=== PATIENT | female | born 1945 | race Caucasian/White ===

== ENCOUNTER 2018-05-11 19:28 | Inpatient (IN) | payer MEDICARE, OTHER ==
[~2018-05-11] VITALS: Ht 167.6 cm; Wt 59.0 kg
[~2018-05-11 19:28] MED LIST: UNOBMED
[2018-05-11 19:48] VITALS: BP 113/51
[2018-05-11] MEDS ORDERED: HEPARIN SO5000 UNIT2 SUBQ ×2 (20:01→20:09)
[2018-05-11] MEDS ORDERED: TYLENOL EXTRA500 MG GT (20:01)
[2018-05-11] MEDS ORDERED: ATIVAN1 MG GT ×2 (20:01→20:09)
[2018-05-11] MEDS ORDERED: NOVOLOG100 UNIT/3 SUBQ ×2 (20:01→20:09)
[2018-05-11] MEDS ORDERED: AMLODIPINE BESY10 MG GT ×2 (20:01→20:09)
[2018-05-11] MEDS ORDERED: MINOXIDIL2.5 MG GT ×2 (20:01→20:09)
[2018-05-11] MEDS ORDERED: SYNTHROID150 MCG GT (20:01)
[2018-05-11 20:09] LABS: HEMATOCRIT 36.9 % (37.0-47.0); HEMOGLOBIN 12.2 G/DL (12.0-16.0); MEAN CORPUSCULAR VOLUME 100 FL (80-99); PLATELET COUNT 109 K/UL (150-450); RED CELL DISTRIBUTION WIDTH 12.2 % (11.6-14.8); WHITE BLOOD COUNT 9.1 K/UL (4.8-10.8)
[2018-05-11] MEDS ORDERED: LEVOTHYROXINE125 MCG GT (20:09)
[2018-05-11] MEDS ORDERED: TYLENOL EXTRA500 MG ORAL (20:09)
[2018-05-11 20:19] LABS: ANION GAP 12 mmol/L (5-15); BLOOD UREA NITROGEN 58 mg/dL (7-18); CALCIUM 9.3 MG/DL (8.5-10.1); CARBON DIOXIDE 26 MMOL/L (21-32); CHLORIDE 97 MMOL/L (98-107); CREATININE 3.8 MG/DL (0.55-1.30); SODIUM 135 MMOL/L (136-145)
[2018-05-11 20:29] LABS: ALANINE AMINOTRANSFERASE 33 U/L (12-78); ALBUMIN 3.3 G/DL (3.4-5.0); ALBUMIN/GLOBULIN RATIO 0.8 (1.0-2.7); ALKALINE PHOSPHATASE 124 U/L (46-116); ASPARTATE AMINO TRANSFERASE 36 U/L (15-37); BILIRUBIN,TOTAL 0.8 MG/DL (0.2-1.0)
[2018-05-11 20:40] VITALS: BP 129/61
[2018-05-11] MEDS ORDERED: Piperacillin/Tazobactam 4.5 GM in NS 110 ML IVPB ONE (21:15)
[2018-05-11] MEDS ORDERED: Vancomycin 1 GM in D5W 275 ML IVPB ONE (21:15)
[2018-05-11 21:30] VITALS: BP 145/73
[2018-05-11] MEDS ORDERED: Albuterol/Ipratropium 3ml neb HHN PRN (21:30)
--- NOTE | 2018-05-11 21:45 | Emergency Room Report ---
History of Present Illness General Chief Complaint: Dyspnea/Respdistress Present Illness HPI Ms. Jessica is a 72-year-old female with history of end-stage renal disease on hemodialysis Saturday. She also has a history of some schizophrenia dysphagia hypothyroidism and type 2 diabetes. She presents with severe respiratory distress hypoxia. Pulse ox 70% on room air according to EMS first responders. She required high flow nonrebreather improving oxygenation.,, Last dialysis session occurred on Saturday 2 days prior. She does have a cough. No known fever. Patient is FULL CODE statue. Due to respiratory distress, history from patient is limited. History obtained from [facility] nursing documentation Allergies: Coded Allergies: No Known Allergies (Unverified , 05/11/18) Patient History Limited by: medical condition Past Medical History: see triage record, old chart reviewed - long term documentation Past Surgical History: unable to obtain Social History Narrative patient at [facility] Nursing Documentation-PMH Hx Hypertension: Yes Hx Diabetes: Yes Hx Gastrointestinal Problems: Yes - ESRD,M-W-F History Of Psychiatric Problem: Yes - SCHIZO Review of Systems All Other Systems: limited - severe respiratory distress Physical Exam Vital Signs Date Time Temp Pulse Resp B/P (MAP) Pulse Ox O2 Delivery O2 Flow Rate FiO2 05/11/18 19:23 98.1 99 30 126/62 97 Non-Rebreather 15.0 98.1 Sp02 EP Interpretation: abnormal - 72% on room air according to EMS General Appearance: severe distress - respiratory distress on nonrebreather Eyes: bilateral eye normal inspection, bilateral eye PERRL ENT: normal pharynx, moist mucus membranes Neck: normal inspection, full range of motion Respiratory: respiratory distress, decreased breath sounds, crackles, rales, rhonchi Cardiovascular #1: regular rate, rhythm, no edema, systolic murmur Gastrointestinal: non tender, soft, other - gastrostomy tube present Musculoskeletal: normal inspection Neurologic: responsive, motor strength/tone normal Psychiatric: other - flat affect cooperative Medical Decision Making Diagnostic Impression: Primary Impression: Acute respiratory failure with hypoxia ER Course Ms. Jessica presents with acute respiratory failure with severe hypoxia. Differential diagnosis includes pulmonary edema due to renal or heart disease vs Healthcare associated pneumonia. Possible flash pulmonary edema due to ACS. Lung exam and chest x-ray largely excludes pulmonary embolism. Patient is now tolerating Venti mask. Symptoms have improved. She is now able to speak with mild effort. Broad-spectrum antibiotics initiated for possibilty of HCAP. Dr. Hudson primary physican and nephrologsit will admit and arrange hemodialysis. 35 minutes of critical care time excluding procedures were used in a care patient. She required multiple evaluations. I reviewed electronic medical record. I spoke with EMS providers. Coordinated care with nursing staff. Lab Results Impression normal white count, equivocal nonspecific troponin elevation in patient with ESRD Chest X-Ray Diagnostic Results Chest X-Ray Diagnostic Results : Chest X-Ray Ordered: Yes # of Views/Limited/Complete: 1 View EP Interpretation: Yes Impression: Other - alveolar edema with bilateral effusion RLL infiltate LLL atelectasis vs effusion Electronically Signed by: This image has been electronically signed by Dr. Liss Quach Last Vital Signs Date Time Temp Pulse Resp B/P (MAP) Pulse Ox O2 Delivery O2 Flow Rate FiO2 05/11/18 21:30 92 23 145/73 97 Venturi Mask 10.0 05/11/18 19:48 98.1 98.1 Disposition: ADMITTED INPATIENT Condition: Serious LISS QUACH May 11, 2018 21:45
[2018-05-11 22:45] VITALS: BP 198/91
[2018-05-12] VITALS: BP 190/90
[2018-05-12] MEDS ORDERED: PRO-STAT LIQUID30 ML ORAL (00:41)
[2018-05-12] MEDS ORDERED: RENA-VITE TABL0.8 M1 GT (00:41)
[2018-05-12 04:00] VITALS: BP 147/78
[2018-05-12] MEDS ORDERED: Heparin 5000 units/ml inj SUBQ SCH (09:00)
[2018-05-12] MEDS ORDERED: Docusate 100mg cap ORAL SCH (09:00)
--- NOTE | 2018-05-12 09:16 | Diagnostic Imaging Report ---
Indication: Shortness of breath Technique: One view of the chest Comparison: 03/24/2012 Findings: Interim development of pulmonary interstitial and airspace edema. There is pleural fluid bilaterally, left greater than right. The heart is enlarged. Findings are new since prior study Impression: Evidence of congestive heart failure, with bilateral interstitial and airspace edema, bilateral pleural effusions, cardiomegaly
[2018-05-12] MEDS ORDERED: Heparin Sod 1000 units/ml 10ml IV PRN (21:30)
--- NOTE | 2018-05-13 09:54 | Discharge Summary ---
Discharge Summary Discharge Summary _ DATE OF ADMISSION: 05/11/2018 DATE OF DISCHARGE: 05/12/2018 REASON FOR ADMISSION: 72 years old female , resident of snf facility , with past medical history significant for end-stage renal disease, on hemodialysis, diabetes mellitus type 2, hypothyroidism, schizophrenia, dysphagia, resented to emergency department with severe respiratory distress. According to paramedics , pulse oximetry was 70% on the room air. Patient was placed on 100% nonrebreathing mask . Vital signs revealed hypoxemia, tachycardia , and tachypnea. No fever. Last hemodialysis done 2 days ago. ABG on 100% nonrebreathing mask was stable. Laboratory workup revealed no leukocytosis ,stable hemoglobin and hematocrit. Lactic acid 1.8. BUN 58 creatinine 3.8 , consistent with known history of end-stage renal disease. Troponin slightly elevated -0.061. EKG revealed sinus tachycardia with left axis deviation. Right bundle bunch block. No acute ischemic changes. Chest x-ray revealed evidence of congestive heart failure with bilateral interstitial and airspace edema, bilateral pleural effusion, cardiomegaly. Patient admitted with diagnosis of on acute respiratory failure with hypoxia, fluid overload, ESRD. HOSPITAL COURSE: Patient admitted to [facility]. Hemodialysis was ordered stat to be done that evening. Patient initially was on 100% nonrebreathing mask then weaned down to 45% Venturi mask . ABG on 45% Ventimask revealed O2 sat of 90%. Pulmonary toilet provided with bronchodilators. Patient started on empiric antibiotics. Blood culture results (available now )negative. DVT and GI prophylaxis provided. Bowel regimen instituted. No call from hemodialysis received despite multiple attempts. Per attending physician, patient was transferred to [facility] to stepdown unit for urgent hemodialysis that evening ( by [employer]). FINAL DIAGNOSES: Acute respiratory failure with hypoxia Fluid overload Congestive heart failure Bilateral pleural effusion End-stage renal disease , on hemodialysis DISCHARGE MEDICATIONS: See Medication Reconciliation list. DISCHARGE INSTRUCTIONS: Patient was transferred to [facility] [place] for urgent hemodialysis and further management. I have been assigned to dictate discharge summary for this account. I was not involved in the patient's management. Inocencia Lowry NP May 13, 2018 09:54
== END 2018-05-12 05:30 | disposition short-term general hospital (02) | DRG 189 ==
LOC: EDUNIT# 19:28 → EDBD 19:28 → EMR 20:10 → EDBEDREQ 21:26 → 2W 21:52
DX: J96.01 Acute respiratory failure with hypoxia (principal); N18.6 End stage renal disease; I13.2 Hypertensive heart and chronic kidney disease with heart failure and with stage 5 chronic kidney disease, or end stage renal disease; I50.9 Heart failure, unspecified; E11.22 Type 2 diabetes mellitus with diabetic chronic kidney disease; E03.9 Hypothyroidism, unspecified; F20.9 Schizophrenia, unspecified; R13.10 Dysphagia, unspecified; I45.10 Unspecified right bundle-branch block; Z99.2 Dependence on renal dialysis
CPT/HCPCS: 36415; 36600; 71045; 80053; 82803; 82962; 83605; 83880; 84484; 85007; 85025; 87040; 87081; 93005

== ENCOUNTER 2018-06-30 10:20 | Inpatient (IN) | payer MEDICARE, OTHER ==
[~2018-06-30] VITALS: Ht 162.6 cm; Wt 69.2 kg
[~2018-06-30 10:20] MED LIST changes: +AMLODIPINE BESY10 MG GT; +ATIVAN1 MG GT; +HEPARIN SO5000 UNIT2 SUBQ; +LEVOTHYROXINE125 MCG GT; +MINOXIDIL2.5 MG GT; +NOVOLOG100 UNIT/3 SUBQ; +PRO-STAT LIQUID30 ML ORAL; +RENA-VITE TABL0.8 M1 GT; +SYNTHROID150 MCG GT; +TYLENOL EXTRA500 MG GT; +TYLENOL EXTRA500 MG ORAL
[2018-06-30] MEDS ORDERED: Isovue-300 100ml vial INJ PRN (11:00)
[2018-06-30 11:02] VITALS: BP 164/70
[2018-06-30 11:38] LABS: HEMATOCRIT 38.8 % (37.0-47.0); HEMOGLOBIN 13.1 G/DL (12.0-16.0); MEAN CORPUSCULAR VOLUME 97 FL (80-99); PLATELET COUNT 118 K/UL (150-450); RED BLOOD COUNT 3.99 M/UL (4.20-5.40); RED CELL DISTRIBUTION WIDTH 14.1 % (11.6-14.8); WHITE BLOOD COUNT 7.6 K/UL (4.8-10.8)
[2018-06-30 11:52] LABS: INR 1.1 (0.9-1.1)
[2018-06-30 12:15] LABS: APPEARANCE,URINE CLOUDY; BILIRUBIN, URINE NEGATIVE (NEGATIVE); GLUCOSE, URINE (UA) NEGATIVE (NEGATIVE); KETONES,URINE NEGATIVE (NEGATIVE); LEUKOCYTE ESTERASE ,URINE 3+ (NEGATIVE); NITRITE,URINE NEGATIVE (NEGATIVE); PH,URINE 7 (4.5-8.0); PROTEIN,URINE 3+ (NEGATIVE); UROBILINOGEN,URINE NORMAL MG/DL (0.0-1.0)
[2018-06-30] MEDS ORDERED: Acetaminophen 650 MG SUPP RECTAL PRN (12:15)
[2018-06-30] MEDS ORDERED: Albuterol/Ipratropium 3ml neb HHN PRN (12:15)
[2018-06-30 12:30] LABS: COLOR,URINE YELLOW
[2018-06-30 12:39] LABS: ANION GAP 10 mmol/L (5-15); BLOOD UREA NITROGEN 103 mg/dL (7-18); CALCIUM 8.7 MG/DL (8.5-10.1); CARBON DIOXIDE 22 MMOL/L (21-32); CHLORIDE 98 MMOL/L (98-107); CREATININE 3.3 MG/DL (0.55-1.30); POTASSIUM 4.6 MMOL/L (3.5-5.1); SODIUM 130 MMOL/L (136-145)
[2018-06-30 12:45] LABS: ALANINE AMINOTRANSFERASE 29 U/L (12-78); ALBUMIN 2.7 G/DL (3.4-5.0); ALBUMIN/GLOBULIN RATIO 0.7 (1.0-2.7); ALKALINE PHOSPHATASE 202 U/L (46-116); ASPARTATE AMINO TRANSFERASE 19 U/L (15-37); BILIRUBIN,TOTAL 0.6 MG/DL (0.2-1.0)
[2018-06-30 12:49] VITALS: BP 150/58
--- NOTE | 2018-06-30 13:27 | Emergency Room Report ---
History of Present Illness General Chief Complaint: General Complaint Source: Patient, Medical Record Present Illness HPI This patient presents from a long-term facility. There is concerned that she was vomiting contents coming from her stomach and G tube. Also the nursing staff noted that she was sounding congested. There is concerned maybe the patient aspirated. The patient herself has no specific complaints. 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 Review of Systems All Other Systems: negative except mentioned in HPI Physical Exam Vital Signs Date Time Temp Pulse Resp B/P (MAP) Pulse Ox O2 Delivery O2 Flow Rate FiO2 06/30/18 10:21 97.9 80 18 164/70 97 Room Air 97.9 Sp02 EP Interpretation: reviewed, normal General Appearance: no apparent distress, alert, GCS 15, non-toxic Head: normocephalic, atraumatic Eyes: bilateral eye normal inspection, bilateral eye PERRL ENT: hearing grossly normal, normal pharynx, no angioedema, normal voice Neck: full range of motion, supple/symm/no masses Respiratory: chest non-tender, lungs clear, normal breath sounds, no respiratory distress, no retraction, no accessory muscle use, speaking full sentences Cardiovascular #1: regular rate, rhythm, no edema Gastrointestinal: normal bowel sounds, non tender, soft, non-distended, no guarding, no rebound, other - G-tube in place. Dark colored return from G-tube site. Rectal: deferred Musculoskeletal: back normal, normal range of motion, non-tender Neurologic: alert, oriented x3, responsive, motor strength/tone normal, sensory intact, speech normal Psychiatric: mood/affect normal, no suicidal/homicidal ideation Skin: normal color, no rash, warm/dry, well hydrated Medical Decision Making Diagnostic Impression: Primary Impression: Hematemesis Additional Impressions: Aspiration pneumonia UTI (urinary tract infection) ER Course I'm concerned for an upper GI bleed in this patient. Also, she has an aspiration pneumonia and is found to have a UTI. Overall, she was stable in the emergency department. She has findings on CT abd/pelvis concerning for malignancy. She is admitted for further evaluation and treatment as an inpatient. Laboratory Tests Test 06/30/18 11:20 06/30/18 12:01 06/30/18 12:20 White Blood Count 7.6 K/UL (4.8-10.8) Red Blood Count 3.99 M/UL (4.20-5.40) L Hemoglobin 13.1 G/DL (12.0-16.0) Hematocrit 38.8 % (37.0-47.0) Mean Corpuscular Volume 97 FL (80-99) Mean Corpuscular Hemoglobin 32.8 PG (27.0-31.0) H Mean Corpuscular Hemoglobin Concent 33.8 G/DL (32.0-36.0) Red Cell Distribution Width 14.1 % (11.6-14.8) Platelet Count 118 K/UL (150-450) L Mean Platelet Volume 6.1 FL (6.5-10.1) L Neutrophils (%) (Auto) % (45.0-75.0) Lymphocytes (%) (Auto) % (20.0-45.0) Monocytes (%) (Auto) % (1.0-10.0) Eosinophils (%) (Auto) % (0.0-3.0) Basophils (%) (Auto) % (0.0-2.0) Differential Total Cells Counted 100 Neutrophils % (Manual) 94 % (45-75) H Lymphocytes % (Manual) 3 % (20-45) L Monocytes % (Manual) 3 % (1-10) Eosinophils % (Manual) 0 % (0-3) Basophils % (Manual) 0 % (0-2) Band Neutrophils 0 % (0-8) Platelet Estimate Decreased L Platelet Morphology Normal Hypochromasia 1+ Anisocytosis 1+ Prothrombin Time 11.9 SEC (9.30-11.50) H Prothrombin Time INR 1.1 (0.9-1.1) PTT 32 SEC (23-33) Urine Color Yellow Urine Appearance Cloudy Urine pH 7 (4.5-8.0) Urine Specific Harbinger 1.005 (1.005-1.035) Urine Protein 3+ (NEGATIVE) H Urine Glucose (UA) Negative (NEGATIVE) Urine Ketones Negative (NEGATIVE) Urine Blood 5+ (NEGATIVE) H Urine Nitrite Negative (NEGATIVE) Urine Bilirubin Negative (NEGATIVE) Urine Urobilinogen Normal MG/DL (0.0-1.0) Urine Leukocyte Esterase 3+ (NEGATIVE) H Urine RBC 10-15 /HPF (0 - 2) H Urine WBC Tntc /HPF (0 - 2) H Urine Squamous Epithelial Cells Few /LPF (NONE/OCC) Urine Bacteria Few /HPF (NONE) Sodium Level 130 MMOL/L (136-145) L Potassium Level 4.6 MMOL/L (3.5-5.1) Chloride Level 98 MMOL/L (98-107) Carbon Dioxide Level 22 MMOL/L (21-32) Anion Gap 10 mmol/L (5-15) Blood Urea Nitrogen 103 mg/dL (7-18) H Creatinine 3.3 MG/DL (0.55-1.30) H Estimate Glomerular Filtration Rate mL/min (>60) Glucose Level 195 MG/DL (74-106) H Calcium Level 8.7 MG/DL (8.5-10.1) Total Bilirubin 0.6 MG/DL (0.2-1.0) Aspartate Amino Transferase (AST) 19 U/L (15-37) Alanine Aminotransferase (ALT) 29 U/L (12-78) Alkaline Phosphatase 202 U/L (46-116) H Total Protein 6.4 G/DL (6.4-8.2) Albumin 2.7 G/DL (3.4-5.0) L Globulin 3.7 g/dL Albumin/Globulin Ratio 0.7 (1.0-2.7) L Lipase 215 U/L (73-393) EKG Diagnostic Results Rate: normal ST Segments: no acute changes Rhythm Strip Diag. Results EP Interpretation: yes Rate: 80's Rhythm: NSR, no PVC's, no ectopy Chest X-Ray Diagnostic Results Chest X-Ray Diagnostic Results : Chest X-Ray Ordered: Yes # of Views/Limited/Complete: 1 View Indication: Other Interpretation: other - R. opacity Impression: Other - See above Electronically Signed by: Malgorzata CT/MRI/US Diagnostic Results CT/MRI/US Diagnostic Results : Imaging Test Ordered: CT abd/pelvis Impression 2.5 cm right lower pole renal mass, very concerning for renal malignancy. Evidence of rectal fecal impaction, rectum distended to 9 cm The above findings were discussed by phone with Dr. Max at the time of interpretation Equivocally mildly thick-walled proximal small bowel loops, if real could indicate enteritis changes. Correlate with clinical findings Bilateral renal atrophy. Correlate with any clinical history of chronic renal disease Bilateral left greater than right renal low-attenuation. Significance uncertain, could indicate infection or hypoperfusion, the latter possibly related to chronic renal insufficiency. Correlate with clinical findings Anasarca. There is generalized edema of the subcutaneous fat, abdominal fat, mediastinal fat, as well as small bilateral pleural effusions Cardiomegaly Subcentimeter low-attenuation liver lesions, too small to characterize, most likely benign cysts or bile hamartomas Cholelithiasis Borderline splenomegaly Hiatal hernia Gastrostomy appears well-positioned Other findings as noted, including degenerative changes of both hips, dependent pulmonary atelectatic changes Last Vital Signs Date Time Temp Pulse Resp B/P (MAP) Pulse Ox O2 Delivery O2 Flow Rate FiO2 06/30/18 12:49 75 18 150/58 98 Room Air 06/30/18 11:02 97.9 97.9 Disposition: ADMITTED INPATIENT Condition: Serious Referrals: Raul Cannon MD (PCP) Halle Brewer DO Jun 30, 2018 13:27
--- NOTE | 2018-06-30 14:58 | Diagnostic Imaging Report ---
Clinical Indication: Abdominal pain, vomiting Technique: No oral contrast utilized, per referring physician request IV administration nonionic contrast. Venous phase spiral acquisition obtained through the abdomen and pelvis. Multiplanar reconstructions were generated. Total dose length product 622.99 mGycm. CTDIvol(s) 11.56 mGy. Dose reduction achieved using automated exposure control Comparison: none Findings: Lack of enteric contrast limits assessment of the GI tract. There is a moderate-sized sliding-type hiatal hernia, incompletely included. There is a gastrostomy tube in good position. There is equivocal mild wall thickening of proximal jejunal loops. These are nondistended. There is distention of the rectum by feces, rectal diameter measuring up to 9 cm. There is only minimal if any rectal wall thickening. No evidence of diverticulosis or diverticulitis. The appendix is not definitely demonstrated, but no findings to suggest acute appendicitis are evident. The liver demonstrates multiple subcentimeter low-attenuation lesions which are too small to characterize. The gallbladder contains small gallstones. It is mildly distended. There is no pericholecystic edema. No biliary ductal dilatation. The pancreas is unremarkable. The spleen is borderline enlarged, measuring 14 cm long axis dimension. The adrenals are unremarkable. The kidneys are atrophic. There is a 2.5 cm solid mass enhancing coming off of the lower pole of the right kidney. Both kidneys, particularly the left, are diffusely somewhat hypoattenuating. The left kidney demonstrates a prominent extrarenal pelvis which is dilated. However, no philomena calyceal hydronephrosis is demonstrated. Extensive renal calcifications are probably arterial. There are prominent but not frankly enlarged retroperitoneal lymph nodes demonstrated. Prominent pelvic nodes are demonstrated bilaterally, again none reaching size criteria for adenopathy, largest in the right external iliac region measuring 14 mm long axis dimension. The uterus and adnexal structures are unremarkable. The subcutaneous fat and abdominal fat are diffusely edematous, as is the mediastinal fat. There are trace bilateral pleural effusions. There are dependent atelectatic changes at both lung bases. The heart is markedly enlarged. The bones are unremarkable except for degenerative changes of both hips. Impression: 2.5 cm right lower pole renal mass, very concerning for renal malignancy. Evidence of rectal fecal impaction, rectum distended to 9 cm The above findings were discussed by phone with Dr. Max at the time of interpretation Equivocally mildly thick-walled proximal small bowel loops, if real could indicate enteritis changes. Correlate with clinical findings Bilateral renal atrophy. Correlate with any clinical history of chronic renal disease Bilateral left greater than right renal low-attenuation. Significance uncertain, could indicate infection or hypoperfusion, the latter possibly related to chronic renal insufficiency. Correlate with clinical findings Anasarca. There is generalized edema of the subcutaneous fat, abdominal fat, mediastinal fat, as well as small bilateral pleural effusions Cardiomegaly Subcentimeter low-attenuation liver lesions, too small to characterize, most likely benign cysts or bile hamartomas Cholelithiasis Borderline splenomegaly Hiatal hernia Gastrostomy appears well-positioned Other findings as noted, including degenerative changes of both hips, dependent pulmonary atelectatic changes The CT scanner at [facility] is accredited by the [employer] and the scans are performed using protocols designed to limit radiation exposure to as low as reasonably achievable to attain images of sufficient resolution adequate for diagnostic evaluation.
[2018-06-30 16:00] VITALS: BP 144/69
--- NOTE | 2018-06-30 16:03 | GI Initial Consult Note ---
History of Present Illness General Date patient seen: Jun 30, 2018 Time patient seen: 15:56 Reason for Hospitalization: General Complaint Referring physician: YSABEL READ Reason for Consultation: VOMITING Present Illness HPI This patient presents from a halfway facility. There is concerned that she was vomiting contents coming from her stomach and G tube. Also the nursing staff noted that she was sounding congested. There is concerned maybe the patient aspirated. The patient herself has no specific complaints. GI consulted for vomiting resulting in possible aspiration. ROS limited, pt seen NAD with no active s/sx of N/V/D. Gtube dependent. Labs reviewed; no anemia, no leukocytosis, elevated alkaline phosphatase. CT AP reviewed patient showing severe fecal impaction. Home Meds Reported Medications Amino Acids/Protein Hydrolys (PRO-STAT LIQUID) 30 Ml Liquid.pkt, 30 ML ORAL TID , ML 05/12/18 Folic Acid/Vitamin B Comp W-C (BARBARA-ALONSO TABLET) 0.8 Mg Tablet, 0.8 MG GT DAILY , TAB 05/12/18 Minoxidil* (LONITEN*) 2.5 Mg Tablet, 2.5 MG GT BID, TAB 05/11/18 Levothyroxine Sodium* (LEVOTHYROXINE SODIUM*) 125 Mcg Tablet, 150 MCG GT DAILY, TAB Take in the morning on an empty stomach, at least 30 minutes before food. 05/11/18 Insulin Aspart* (NOVOLOG*) 100 Unit/1 Ml Insuln.pen, 0 SUBQ, #1 EA 0 Refills 05/11/18 Heparin Sod (Porcine) (HEPARIN SODIUM*) 5 000/1 Ml Vial, 5000 UNITS SUBQ EVERY 12 HOURS, VIAL 05/11/18 Lorazepam* (ATIVAN*) 1 Mg Tablet, 1 MG GT 3XW, TAB 05/11/18 Amlodipine Besylate* (AMLODIPINE BESYLATE*) 10 Mg Tablet, 10 MG GT DAILY, TAB 05/11/18 Acetaminophen* (TYLENOL EXTRA STRENGTH*) 500 Mg Tablet, 500 MG ORAL Q4HR PRN for Prn Headache/Temp > 101, #30 TAB 0 Refills 05/11/18 Minoxidil* (LONITEN*) 2.5 Mg Tablet, 2.5 MG GT BID, TAB 05/11/18 Levothyroxine Sodium* (SYNTHROID*) 150 Mcg Tablet, 150 MCG GT DAILY, TAB Take in the morning on an empty stomach, at least 30 minutes before food. 05/11/18 Insulin Aspart* (NOVOLOG*) 100 Unit/1 Ml Insuln.pen, 0 SUBQ, #1 EA 0 Refills 05/11/18 Heparin Sod (Porcine) (HEPARIN SODIUM*) 5 000/1 Ml Vial, 5000 UNITS SUBQ EVERY 12 HOURS, VIAL 05/11/18 Lorazepam* (ATIVAN*) 1 Mg Tablet, 1 MG GT BEDTIME, TAB 05/11/18 Amlodipine Besylate* (AMLODIPINE BESYLATE*) 10 Mg Tablet, 10 MG GT DAILY, TAB 05/11/18 Acetaminophen* (TYLENOL EXTRA STRENGTH*) 500 Mg Tablet, 500 MG GT Q4HR PRN for Mild Pain/Temp > 100.5, TAB 0 Refills 05/11/18 Unable to Obtain Medications (UNABLE TO OBTAIN MEDS) 1 Ea Ea 07/09/12 Med list reviewed/reconciled: Yes Allergies: Coded Allergies: No Known Allergies (Unverified , 05/11/18) Patient History Limited by: medical condition History Provided By: Medical Record PMH Narrative Past Medical History: see triage record, DM, HTN, CAD, renal disease, dialysis , other - Dysphagia Social History: Denies: smoking, alcohol use, drug use Last Menstrual Period: N/A Reviewed Nursing Documentation: PMH: Agreed; PSxH: Agreed Nursing Documentation-[facility] Past Medical History: No History, Except For Hx Cardiac Problems: No - ESRD, PNA, HYPOTHYROID, DYSPHAGIA, ANEMIA Hx Hypertension: Yes Hx Diabetes: Yes Hx Cancer: No Hx Gastrointestinal Problems: Yes Hx Dialysis: Yes - MWF 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 Review of Systems All Other Systems: negative except mentioned in HPI Physical Exam Vital Signs Date Time Temp Pulse Resp B/P (MAP) Pulse Ox O2 Delivery O2 Flow Rate FiO2 06/30/18 10:21 97.9 80 18 164/70 97 Room Air 97.9 Sp02 EP Interpretation: reviewed Labs Laboratory Tests Test 06/30/18 11:20 06/30/18 12:01 06/30/18 12:20 White Blood Count 7.6 K/UL (4.8-10.8) Red Blood Count 3.99 M/UL (4.20-5.40) L Hemoglobin 13.1 G/DL (12.0-16.0) Hematocrit 38.8 % (37.0-47.0) Mean Corpuscular Volume 97 FL (80-99) Mean Corpuscular Hemoglobin 32.8 PG (27.0-31.0) H Mean Corpuscular Hemoglobin Concent 33.8 G/DL (32.0-36.0) Red Cell Distribution Width 14.1 % (11.6-14.8) Platelet Count 118 K/UL (150-450) L Mean Platelet Volume 6.1 FL (6.5-10.1) L Neutrophils (%) (Auto) % (45.0-75.0) Lymphocytes (%) (Auto) % (20.0-45.0) Monocytes (%) (Auto) % (1.0-10.0) Eosinophils (%) (Auto) % (0.0-3.0) Basophils (%) (Auto) % (0.0-2.0) Differential Total Cells Counted 100 Neutrophils % (Manual) 94 % (45-75) H Lymphocytes % (Manual) 3 % (20-45) L Monocytes % (Manual) 3 % (1-10) Eosinophils % (Manual) 0 % (0-3) Basophils % (Manual) 0 % (0-2) Band Neutrophils 0 % (0-8) Platelet Estimate Decreased L Platelet Morphology Normal Hypochromasia 1+ Anisocytosis 1+ Prothrombin Time 11.9 SEC (9.30-11.50) H Prothromb Time International Ratio 1.1 (0.9-1.1) Activated Partial Thromboplast Time 32 SEC (23-33) Urine Color Yellow Urine Appearance Cloudy Urine pH 7 (4.5-8.0) Urine Specific [place] 1.005 (1.005-1.035) Urine Protein 3+ (NEGATIVE) H Urine Glucose (UA) Negative (NEGATIVE) Urine Ketones Negative (NEGATIVE) Urine Blood 5+ (NEGATIVE) H Urine Nitrite Negative (NEGATIVE) Urine Bilirubin Negative (NEGATIVE) Urine Urobilinogen Normal MG/DL (0.0-1.0) Urine Leukocyte Esterase 3+ (NEGATIVE) H Urine RBC 10-15 /HPF (0 - 2) H Urine WBC Tntc /HPF (0 - 2) H Urine Squamous Epithelial Cells Few /LPF (NONE/OCC) Urine Bacteria Few /HPF (NONE) Sodium Level 130 MMOL/L (136-145) L Potassium Level 4.6 MMOL/L (3.5-5.1) Chloride Level 98 MMOL/L (98-107) Carbon Dioxide Level 22 MMOL/L (21-32) Anion Gap 10 mmol/L (5-15) Blood Urea Nitrogen 103 mg/dL (7-18) H Creatinine 3.3 MG/DL (0.55-1.30) H Estimat Glomerular Filtration Rate mL/min (>60) Glucose Level 195 MG/DL (74-106) H Calcium Level 8.7 MG/DL (8.5-10.1) Total Bilirubin 0.6 MG/DL (0.2-1.0) Aspartate Amino Transf (AST/SGOT) 19 U/L (15-37) Alanine Aminotransferase (ALT/SGPT) 29 U/L (12-78) Alkaline Phosphatase 202 U/L (46-116) H Total Protein 6.4 G/DL (6.4-8.2) Albumin 2.7 G/DL (3.4-5.0) L Globulin 3.7 g/dL Albumin/Globulin Ratio 0.7 (1.0-2.7) L Lipase 215 U/L (73-393) General Appearance: well appearing, no apparent distress, alert Head: normocephalic EENT: normal ENT inspection Neck: supple Respiratory: normal breath sounds Cardiovascular: normal rate Current Medications Current Medications Medications (Trade) Dose Ordered Sig/Konrad Route PRN Reason Start Time Stop Time Status Last Admin Dose Admin Acetaminophen (Tylenol) 650 mg Q4H PRN RECTAL fever 06/30/18 12:15 07/30/18 12:14 Albuterol/ Ipratropium (Albuterol/ Ipratropium) 3 ml Q6HR PRN HHN Shortness of Breath 06/30/18 12:15 07/05/18 12:14 Dextrose (Dextrose 50%) 25 ml Q30M PRN IV Hypoglycemia 06/30/18 12:15 07/30/18 12:14 Dextrose (Dextrose 50%) 50 ml Q30M PRN IV Hypoglycemia 06/30/18 12:15 07/30/18 12:14 Heparin Sodium (Porcine) (Heparin Sod 1000 units/ml 10ml) 2,000 unit ONCE PRN IV DIALYSIS 07/01/18 12:15 07/06/18 12:14 Iopamidol (Isovue-300 100ml) 100 ml NOW PRN INJ Radiology Procedure 06/30/18 11:00 Minoxidil (Loniten) 5 mg BID GT 06/30/18 18:00 07/30/18 17:59 Ondansetron HCl (Zofran) 4 mg Q6H PRN IVP Nausea & Vomiting 06/30/18 12:33 07/30/18 12:32 Pantoprazole (Protonix) 40 mg DAILY IV 07/01/18 09:00 07/31/18 08:59 Sodium Chloride 1,000 ml @ 500 mls/hr Q2H PRN IVLG sbp<90 during hd 07/01/18 12:12 07/31/18 12:11 GI: Plan Problems: (1) Fecal impaction (2) Vomiting (3) Gastrostomy tube dependent Plan CT AP reviewed >> severe fecal impaction, most likely the cause of emesis. maintain NPO + IVFs will perform digital disimpaction if medical management fails. - mineral oil GT x1 - mineral oil fleets x 1 bowel regime GTFs per RD ppi fu labs Discussed with Dr. Taylor. Thank you for this patient referral, we will follow. The patient was seen and examined at bedside and all new and available data was reviewed in the patients chart. I agree with the above findings, impression and plan. (Patient seen earlier today. Signature stamp does not reflect patient encounter time.). - MD Rhonda Moon,[facility] [employer] Jun 30, 2018 16:03
--- NOTE | 2018-06-30 17:42 | Diagnostic Imaging Report ---
Indication: Reason For Exam: SOB Technique: One view of the chest Comparison: none Findings: The heart is enlarged. There is bilateral interstitial edema. There is there are questionably small bilateral pleural effusions. Impression: And interstitial congestion and possible small bilateral pleural effusions Cardiomegaly
[2018-06-30] MEDS: Mineral Oil 30ml ud GT SCH (17:46)
[2018-06-30] MEDS: Minoxidil 2.5mg tab GT SCH (17:46)
[2018-06-30] MEDS ORDERED: Fleet's Mineral Oil Enema RECTAL SCH (18:00)
[2018-06-30 20:00] VITALS: BP 149/71
[2018-06-30] MEDS: Miralax 17gm pkt GT SCH (21:01)
[2018-06-30 23:43] VITALS: BP 154/69
--- NOTE | 2018-07-01 01:00 | History and Physical Report ---
DATE OF ADMISSION: 06/30/2018 CHIEF COMPLAINT: Shortness of breath and dark vomitus. HISTORY OF PRESENT ILLNESS: This is a 72-year-old female, who is on dialysis every Saturday, Saturday, Saturday. The patient is a resident of [facility]. I was called at around 9 a.m. by the nursing staff. The patient became short of breath. She started vomiting and had a foamy vomitus and became short of breath. The patient was instructed to go immediately to the emergency department. The patient is a extremely poor historian due to schizophrenia. PAST MEDICAL HISTORY: 1. End-stage renal failure due to diabetic nephropathy. 2. Type 2 diabetes mellitus. 3. Schizophrenia. 4. Congestive heart failure. 5. Chronic obstructive pulmonary disease. 6. Hypothyroidism. 7. Sick sinus syndrome. ASSISTED MEDICATIONS: 1. Tylenol p.r.n. 2. Amlodipine. 3. Folic acid. 4. Subcutaneous heparin. 5. Synthroid. 6. Ativan. 7. Minoxidil. ALLERGIES: No known drug allergies. FAMILY HISTORY: Unable to obtain secondary to mental status. SOCIAL HISTORY: Unable to obtain secondary to mental status. REVIEW OF SYSTEMS: Unable to obtain secondary to mental status. PHYSICAL EXAMINATION: GENERAL: This is an elderly cachectic appearing female, who is in no acute distress. VITAL SIGNS: Blood pressure 150/58, pulse 75, apical, respirations 20, and temperature 97.9 oral. HEENT: The head is normocephalic and atraumatic. Pupils are equal, round, and reactive to light and accommodation consensually. NECK: Supple. Trachea midline. There was no lymphadenopathy or thyromegaly. LUNGS: Clear to auscultation and percussion. HEART: Regular rate and rhythm without rubs, murmurs, or gallops. ABDOMEN: Soft and nontender. She has a G-tube. EXTREMITIES: No clubbing, cyanosis, or edema. She has a left upper arm AV fistula. NEUROLOGIC: She is confused. There were no gross focal findings. LABORATORY AND ANCILLARY DATA: CBC currently within normal limits. Chemistry, sodium 130, BUN 103, and creatinine 3.3. IMAGING STUDIES: CT scan of the abdomen ordered and results pending. ASSESSMENT: 1. Gastrointestinal bleed. Etiology and mechanism unclear. 2. End-stage renal failure due to diabetic nephropathy. 3. Type 2 diabetes mellitus. 4. Schizophrenia. 5. Congestive heart failure. 6. Chronic obstructive pulmonary disease. 7. Hypothyroidism. 8. Sick sinus syndrome. PLAN: 1. Keep NPO except meds. 2. GI consult. 3. Postpone hemodialysis to tomorrow until GI bleed is sorted out. 4. Control blood pressure. Raul Cannon M.D. DR: NORIS JOB#: [id number] CC:
--- NOTE | 2018-07-01 03:00 | Consultation ---
DATE OF CONSULTATION: 06/30/2018 UROLOGY CONSULTATION CONSULTING PHYSICIAN: Wilmer Carpenter M.D. CHIEF COMPLAINT/HISTORY OF PRESENT ILLNESS: I was asked by Dr. Cannon to evaluate this 72-year-old with multiple medical issues regarding history of a small right renal mass noted incidentally on imaging. Briefly, the patient has a history of multiple medical problems including diabetes mellitus, hypertension, and coronary artery disease. She is maintained on renal dialysis. She presented to the hospital with history of vomiting. Workup for the same revealed fecal impaction. A CT scan to further evaluate the same revealed a 2.5 centimeter right renal mass worrisome for malignancy. PAST MEDICAL HISTORY: 1. Diabetes mellitus. 2. Hypertension. 3. Coronary artery disease. 4. Chronic renal insufficiency, on dialysis. 5. Dysphagia. 6. Pneumonia. 7. Hypothyroidism. 8. Anemia. 9. Organic brain syndrome. MEDICATIONS: Please see chart for current medications administration details. ALLERGIES: No known drug allergies. SOCIAL HISTORY: Unremarkable for tobacco, alcohol, or drug use. FAMILY HISTORY: Noncontributory. REVIEW OF SYSTEMS: A 14-system review of systems was somewhat difficult to elicit ____ much with questioning, appeared to be unremarkable outside as what is described above. PHYSICAL EXAMINATION: GENERAL: The patient is an older female, awake and somewhat alert, no obvious distress. HEENT: NC/AT. Extraocular muscles intact. NECK: Supple. Oropharynx clear. CHEST: Within normal limits. ABDOMEN: Soft, nontender, and nondistended. EXTREMITIES: Warm and well perfused. No cyanosis, clubbing, or edema. BACK: No CVA tenderness to percussion. NEUROLOGIC: Grossly nonfocal. LABORATORY DATA: White blood cell count 7.6, hematocrit 38.8, and platelets 118. Sodium 130, potassium 4.6, chloride 98, bicarbonate 22, BUN 103, creatinine 3.3, glucose 195, and calcium 8.7. LFTs within normal limits. Alkaline phosphatase 202. PT 11.9, INR 1.1, and PTT 32. Urinalysis, specific gravity 1.005, pH 7.0. Dip test notable for 3+ protein, 5+ occult blood, and 3+ leukocyte esterase. Microanalysis with 10 to 15 red blood cells per high-power field, too numerous to count red blood cells per high-power field, 10 to 15 red blood cells per high-power field, and too numerous to count white blood cells per high-power field. Urine culture is pending. DIAGNOSTIC IMAGING: CT scan of the abdomen and pelvis reveals a 2.5 centimeter lower pole right renal mass. The kidneys are atrophic otherwise. There is no evidence of enlarged retroperitoneal lymph nodes. There are prominent pelvic lymph nodes. There is evidence of fecal impaction, anasarca, and cardiomegaly. There is cholelithiasis and borderline splenomegaly and a hiatal hernia. ASSESSMENT AND PLAN: In summary, the patient is a 72-year-old female with a history of multiple medical problems including diabetes, coronary artery disease, and organic brain syndrome. She presents to the hospital with nausea and vomiting which is intractable. She was noted to have fecal impaction on CT scan. Incidentally, a 2.5 centimeter right renal mass was noted as well. The patient has no symptoms from this mass. Physical exam reveals an elderly and debilitated patient. Laboratory data is notable for evidence of renal insufficiency. Diagnostic imaging reveals the mass described above. This patient's renal function is poor to begin with and she is elderly and debilitated with multiple medical issues. I would recommend close surveillance of the mass to begin with. If it does not change much overtime, it can be left on close surveillance. If the mass began to rapidly enlarge within the next 6 months to a year, consideration for heminephrectomy could be done at that time. This would have to be ____ against the additional loss of renal function in this patient and the surgical risks and is overall poor surgical candidate. This was discussed with the patient at length who understood. She will follow up my office for interval imaging and for follow up on the mass. Thank you for allowing me to participate in the care of this unfortunate lady. Please do not hesitate to contact me with any questions that you may further have regarding her care. I will see her with you as needed. Markie Eric M.D. DR: DIONY JOB#: [id number] CC:
[2018-07-01 04:00] VITALS: BP 149/70
[2018-07-01 05:54] LABS: HEMATOCRIT 35.3 % (37.0-47.0); HEMOGLOBIN 12.3 G/DL (12.0-16.0); MEAN CORPUSCULAR VOLUME 97 FL (80-99); PLATELET COUNT 127 K/UL (150-450); RED BLOOD COUNT 3.65 M/UL (4.20-5.40); RED CELL DISTRIBUTION WIDTH 14.1 % (11.6-14.8); WHITE BLOOD COUNT 9.1 K/UL (4.8-10.8)
[2018-07-01 05:59] LABS: ANION GAP 7 mmol/L (5-15); BLOOD UREA NITROGEN 105 mg/dL (7-18); CALCIUM 9.1 MG/DL (8.5-10.1); CARBON DIOXIDE 24 MMOL/L (21-32); CHLORIDE 98 MMOL/L (98-107); CREATININE 3.8 MG/DL (0.55-1.30); POTASSIUM 5.2 MMOL/L (3.5-5.1); SODIUM 129 MMOL/L (136-145)
--- NOTE | 2018-07-01 06:42 | Consultation ---
Consult Note Consult Note Hematology/oncology Consultation ELLEN WALSH: Ronal Cannon DOS: 07/01/2018 RFC: Renal mass and anemia, low plts CHIEF COMPLAINT/HISTORY OF PRESENT ILLNESS: I was asked by Dr. Cannon to evaluate this 72-year-old with multiple medical issues regarding history of a small right renal mass noted incidentally on imaging. Briefly, the patient has a history of multiple medical problems including diabetes mellitus, hypertension , and coronary artery disease. She is maintained on renal dialysis. She presented to the hospital with history of vomiting. Workup for the same revealed fecal impaction. A CT scan to furtherevaluate the same revealed a 2.5 centimeter right renal mass worrisome for malignancy. Imaging reviewed and labs show a low h/h and thrombocytopenia. PAST MEDICAL HISTORY: 1. Diabetes mellitus. 2. Hypertension. 3. Coronary artery disease. 4. Chronic renal insufficiency, on dialysis. 5. Dysphagia. 6. Pneumonia. 7. Hypothyroidism. 8. Anemia. 9. Organic brain syndrome. MEDICATIONS: Please see chart for current medications administration details. ALLERGIES: No known drug allergies. SOCIAL HISTORY: Unremarkable for tobacco, alcohol, or drug use. FAMILY HISTORY: Noncontributory. REVIEW OF SYSTEMS: 14-system review of systems was somewhat difficult to elicit aswers without much with questioning, appeared to be unremarkable outside as what is described above. PHYSICAL EXAMINATION: GENERAL: The patient is an older female, awake and somewhat alert HEENT: NC/AT. Extraocular muscles intact. NECK: Supple. Oropharynx clear. CHEST: Within normal limits. ABDOMEN: Soft, nontender, and nd EXTREMITIES: Warm and well perfused. No cce BACK: No CVA tenderness to percussion. NEUROLOGIC: Grossly nonfocal Laboratory Tests Test 06/30/18 11:20 06/30/18 12:01 06/30/18 12:20 07/01/18 05:20 White Blood Count 7.6 K/UL (4.8-10.8) 9.1 K/UL (4.8-10.8) Red Blood Count 3.99 M/UL (4.20-5.40) L 3.65 M/UL (4.20-5.40) L Hemoglobin 13.1 G/DL (12.0-16.0) 12.3 G/DL (12.0-16.0) Hematocrit 38.8 % (37.0-47.0) 35.3 % (37.0-47.0) L Mean Corpuscular Volume 97 FL (80-99) 97 FL (80-99) Mean Corpuscular Hemoglobin 32.8 PG (27.0-31.0) H 33.7 PG (27.0-31.0) H Mean Corpuscular Hemoglobin Concent 33.8 G/DL (32.0-36.0) 34.8 G/DL (32.0-36.0) Red Cell Distribution Width 14.1 % (11.6-14.8) 14.1 % (11.6-14.8) Platelet Count 118 K/UL (150-450) L 127 K/UL (150-450) L Mean Platelet Volume 6.1 FL (6.5-10.1) L 6.2 FL (6.5-10.1) L Neutrophils (%) (Auto) % (45.0-75.0) % (45.0-75.0) Lymphocytes (%) (Auto) % (20.0-45.0) % (20.0-45.0) Monocytes (%) (Auto) % (1.0-10.0) % (1.0-10.0) Eosinophils (%) (Auto) % (0.0-3.0) % (0.0-3.0) Basophils (%) (Auto) % (0.0-2.0) % (0.0-2.0) Differential Total Cells Counted 100 Neutrophils % (Manual) 94 % (45-75) H Lymphocytes % (Manual) 3 % (20-45) L Monocytes % (Manual) 3 % (1-10) Eosinophils % (Manual) 0 % (0-3) Basophils % (Manual) 0 % (0-2) Band Neutrophils 0 % (0-8) Platelet Estimate Decreased L Platelet Morphology Normal Hypochromasia 1+ Anisocytosis 1+ Prothrombin Time 11.9 SEC (9.30-11.50) H Prothromb Time International Ratio 1.1 (0.9-1.1) Activated Partial Thromboplast Time 32 SEC (23-33) Urine Color Yellow Urine Appearance Cloudy Urine pH 7 (4.5-8.0) Urine Specific [place] 1.005 (1.005-1.035) Urine Protein 3+ (NEGATIVE) H Urine Glucose (UA) Negative (NEGATIVE) Urine Ketones Negative (NEGATIVE) Urine Blood 5+ (NEGATIVE) H Urine Nitrite Negative (NEGATIVE) Urine Bilirubin Negative (NEGATIVE) Urine Urobilinogen Normal MG/DL (0.0-1.0) Urine Leukocyte Esterase 3+ (NEGATIVE) H Urine RBC 10-15 /HPF (0 - 2) H Urine WBC Tntc /HPF (0 - 2) H Urine Squamous Epithelial Cells Few /LPF (NONE/OCC) Urine Bacteria Few /HPF (NONE) Sodium Level 130 MMOL/L (136-145) L 129 MMOL/L (136-145) L Potassium Level 4.6 MMOL/L (3.5-5.1) 5.2 MMOL/L (3.5-5.1) H Chloride Level 98 MMOL/L (98-107) 98 MMOL/L (98-107) Carbon Dioxide Level 22 MMOL/L (21-32) 24 MMOL/L (21-32) Anion Gap 10 mmol/L (5-15) 7 mmol/L (5-15) Blood Urea Nitrogen 103 mg/dL (7-18) H 105 mg/dL (7-18) H Creatinine 3.3 MG/DL (0.55-1.30) H 3.8 MG/DL (0.55-1.30) H Estimat Glomerular Filtration Rate mL/min (>60) mL/min (>60) Glucose Level 195 MG/DL (74-106) H 142 MG/DL (74-106) H Calcium Level 8.7 MG/DL (8.5-10.1) 9.1 MG/DL (8.5-10.1) Total Bilirubin 0.6 MG/DL (0.2-1.0) Aspartate Amino Transf (AST/SGOT) 19 U/L (15-37) Alanine Aminotransferase (ALT/SGPT) 29 U/L (12-78) Alkaline Phosphatase 202 U/L (46-116) H Total Protein 6.4 G/DL (6.4-8.2) Albumin 2.7 G/DL (3.4-5.0) L Globulin 3.7 g/dL Albumin/Globulin Ratio 0.7 (1.0-2.7) L Lipase 215 U/L (73-393) DIAGNOSTIC IMAGING: Impression: 2.5 cm right lower pole renal mass, very concerning for renal malignancy. Evidence of rectal fecal impaction, rectum distended to 9 cm The above findings were discussed by phone with Dr. Max at the time of interpretation Equivocally mildly thick-walled proximal small bowel loops, if real could indicate enteritis changes. Correlate with clinical findings Bilateral renal atrophy. Correlate with any clinical history of chronic renal disease Bilateral left greater than right renal low-attenuation. Significance uncertain, could indicate infection or hypoperfusion, the latter possibly related to chronic renal insufficiency. Correlate with clinical findings Anasarca. There is generalized edema of the subcutaneous fat, abdominal fat, mediastinal fat, as well as small bilateral pleural effusions Cardiomegaly Subcentimeter low-attenuation liver lesions, too small to characterize, most likely benign cysts or bile hamartomas Cholelithiasis Borderline splenomegaly Hiatal hernia ASSESSMENT AND PLAN: # 2.5 centimeter right renal mass -- renal function is poor to begin with and she is elderly and debilitated with multiple medical issues. I would recommend close surveillance of the mass to begin with. --> agree with urology recommendations for surveillance and q6-12mo imaging and if larger act at that time --> no hydronephrosis is noted --> would not recommend tumor markers at this time --> no further imaging at this time indicated # Thrombocytopenia -- medication, infection or liver related --> baseline unknown but will send for hep and hiv --> CT of the a/p reviewed and shows SPLENOMEGALY # FTT - s/p gtube insertion --> properly functioning # Diabetes # Coronary artery disease # Organic brain syndrome. She presents to the hospital with nausea and vomiting which is intractable. # Fecal impaction on CT scan. Greatly appreciate consultation! Blayne Carroll MD Jul 01, 2018 06:42
[2018-07-01 08:00] VITALS: BP 156/77
[2018-07-01] MEDS: Minoxidil 2.5mg tab GT SCH ×2 (09:00→18:41)
[2018-07-01 09:07] LABS: FERRITIN 950 NG/ML (8-388)
--- NOTE | 2018-07-01 09:12 | Nephrology Progress Note ---
Assessment/Plan Plan ESRD - HD today. CHF - stable. Fecal impaction -per GI. Rt. newly diagnosed Renal Cell CA - Per no surgical intervention. Patient too high risk. Subjective Subjective Alert. No c/o. Confused. Objective Objective Last 24 Hour Vital Signs Date Time Temp Pulse Resp B/P (MAP) Pulse Ox O2 Delivery O2 Flow Rate FiO2 07/01/18 04:00 97.5 80 20 149/70 (96) 95 97.5 07/01/18 04:00 78 07/01/18 00:00 74 06/30/18 23:43 97.3 81 20 154/69 (97) 94 97.3 06/30/18 22:30 80 18 Room Air 21 06/30/18 21:00 Room Air 06/30/18 20:00 84 06/30/18 20:00 97.0 78 20 149/71 (97) 96 97.0 06/30/18 17:46 144/69 06/30/18 16:00 96.8 71 18 144/69 (94) 96 96.8 06/30/18 16:00 80 06/30/18 15:02 Room Air 06/30/18 12:49 75 18 150/58 98 Room Air 06/30/18 11:02 97.9 18 164/70 97 Room Air 97.9 06/30/18 10:21 97.9 80 18 164/70 97 Room Air 97.9 Intake and Output 06/30/18 07/01/18 19:00 07:00 Intake Total 40 ml Output Total 100 ml Balance -60 ml Intake Oral 0 ml Free Water 40 ml Output Gastric Drainage Total 100 ml # Bowel Movements 1 Laboratory Tests 06/30/18 11:20: White Blood Count 7.6, Red Blood Count 3.99L, Hemoglobin 13.1, Hematocrit 38.8, Mean Corpuscular Volume 97, Mean Corpuscular Hemoglobin 32.8H, Mean Corpuscular Hemoglobin Concent 33.8, Red Cell Distribution Width 14.1, Platelet Count 118L, Mean Platelet Volume 6.1L, Neutrophils (%) (Auto) , Lymphocytes (%) (Auto) , Monocytes (%) (Auto) , Eosinophils (%) (Auto) , Basophils (%) (Auto) , Differential Total Cells Counted 100, Neutrophils % (Manual) 94H, Lymphocytes % (Manual) 3L, Monocytes % (Manual) 3, Eosinophils % (Manual) 0, Basophils % ( Manual) 0, Band Neutrophils 0, Platelet Estimate DecreasedL, Platelet Morphology Normal, Hypochromasia 1+, Anisocytosis 1+, Prothrombin Time 11.9H, Prothromb Time International Ratio 1.1, Activated Partial Thromboplast Time 32 06/30/18 12:01: Urine Color Yellow, Urine Appearance Cloudy, Urine pH 7, Urine Specific [place] 1.005, Urine Protein 3+H, Urine Glucose (UA) Negative, Urine Ketones Negative, Urine Blood 5+H, Urine Nitrite Negative, Urine Bilirubin Negative, Urine Urobilinogen Normal, Urine Leukocyte Esterase 3+H, Urine RBC 10-15H, Urine WBC TntcH, Urine Squamous Epithelial Cells Few, Urine Bacteria Few 06/30/18 12:20: Sodium Level 130L, Potassium Level 4.6, Chloride Level 98, Carbon Dioxide Level 22, Anion Gap 10, Blood Urea Nitrogen 103H, Creatinine 3.3H, Estimat Glomerular Filtration Rate , Glucose Level 195H, Calcium Level 8.7, Total Bilirubin 0.6, Aspartate Amino Transf (AST/SGOT) 19, Alanine Aminotransferase (ALT/SGPT) 29, Alkaline Phosphatase 202H, Total Protein 6.4, Albumin 2.7L, Globulin 3.7, Albumin/Globulin Ratio 0.7L, Lipase 215 07/01/18 05:20: White Blood Count 9.1, Red Blood Count 3.65L, Hemoglobin 12.3, Hematocrit 35.3L , Mean Corpuscular Volume 97, Mean Corpuscular Hemoglobin 33.7H, Mean Corpuscular Hemoglobin Concent 34.8, Red Cell Distribution Width 14.1, Platelet Count 127L, Mean Platelet Volume 6.2L, Neutrophils (%) (Auto) , Lymphocytes (%) (Auto) , Monocytes (%) (Auto) , Eosinophils (%) (Auto) , Basophils (%) (Auto) , Sodium Level 129L, Potassium Level 5.2H, Chloride Level 98, Carbon Dioxide Level 24, Anion Gap 7, Blood Urea Nitrogen 105H, Creatinine 3.8H, Estimat Glomerular Filtration Rate , Glucose Level 142H, Calcium Level 9.1 07/01/18 07:45: Reticulocyte Count [Pending], Fibrinogen 367, Calcium (Send out) [Pending], Iron Level [Pending], Unsaturated Iron Binding [Pending], Ferritin [Pending], Vitamin B12 Level [Pending], Folate [Pending], Parathyroid Hormone (Intact) [ Pending], Hepatitis A IgM Antibody [Pending], Hepatitis B Surface Antigen [ Pending], Hepatitis B Core IgM Antibody [Pending], Hepatitis C Antibody [Pending ] Height (Feet): 5 Height (Inches): 4.00 Weight (Pounds): 124 Objective CV RR Lungs CTA Abd SNT. BS +. PEG OK. E No CCE. GIANNI AVF + bruit. Raul Cannon MD Jul 01, 2018 09:12
[2018-07-01 09:30] LABS: % IRON SATURATION 26 % (15-50); IRON 24 ug/dL (50-175); TOTAL IRON BINDING CAPACITY 94 ug/dL (250-450)
[2018-07-01] MEDS: Pantoprazole Inj IV SCH (09:47)
[2018-07-01] MEDS: Mineral Oil 30ml ud GT SCH (09:47)
[2018-07-01 12:00] VITALS: BP 138/72
[2018-07-01] MEDS ORDERED: Heparin Sod 1000 units/ml 10ml IV PRN (12:15)
--- NOTE | 2018-07-01 13:16 | GI Progress Note ---
Assessment/Plan Problems: (1) Gastrostomy tube dependent ICD Codes: Z93.1 - Gastrostomy status SNOMED: 325861346, 631129784 (2) Vomiting ICD Codes: R11.10 - Vomiting, unspecified SNOMED: 531832386 (3) Fecal impaction ICD Codes: K56.41 - Fecal impaction SNOMED: 81251157 (4) Hematemesis ICD Codes: K92.0 - Hematemesis SNOMED: 1404105 Status: unchanged Status Narrative Discussed with Dr. Taylor. Assessment/Plan CT AP reviewed >> severe fecal impaction, most likely the cause of emesis. no anemia fecal impaction >> had BM last night start GTFs per RD to goal bowel regime electrolyte correction ppi fu labs The patient was seen and examined at bedside and all new and available data was reviewed in the patients chart. I agree with the above findings, impression and plan. (Patient seen earlier today. Signature stamp does not reflect patient encounter time.). - Hilton Taylor MD Subjective Subjective limited Objective Last 24 Hour Vital Signs Date Time Temp Pulse Resp B/P (MAP) Pulse Ox O2 Delivery O2 Flow Rate FiO2 07/01/18 09:00 Room Air 07/01/18 08:00 97.7 75 20 156/77 (103) 98 97.7 07/01/18 04:00 97.5 80 20 149/70 (96) 95 97.5 07/01/18 04:00 78 07/01/18 00:00 74 06/30/18 23:43 97.3 81 20 154/69 (97) 94 97.3 06/30/18 22:30 80 18 Room Air 21 06/30/18 21:00 Room Air 06/30/18 20:00 84 06/30/18 20:00 97.0 78 20 149/71 (97) 96 97.0 06/30/18 17:46 144/69 06/30/18 16:00 96.8 71 18 144/69 (94) 96 96.8 06/30/18 16:00 80 06/30/18 15:02 Room Air Intake and Output 06/30/18 07/01/18 19:00 07:00 Intake Total 40 ml Output Total 100 ml Balance -60 ml Intake Oral 0 ml Free Water 40 ml Output Gastric Drainage Total 100 ml # Bowel Movements 1 Laboratory Tests Test 07/01/18 05:20 07/01/18 07:45 White Blood Count 9.1 K/UL (4.8-10.8) Red Blood Count 3.65 M/UL (4.20-5.40) L Hemoglobin 12.3 G/DL (12.0-16.0) Hematocrit 35.3 % (37.0-47.0) L Mean Corpuscular Volume 97 FL (80-99) Mean Corpuscular Hemoglobin 33.7 PG (27.0-31.0) H Mean Corpuscular Hemoglobin Concent 34.8 G/DL (32.0-36.0) Red Cell Distribution Width 14.1 % (11.6-14.8) Platelet Count 127 K/UL (150-450) L Mean Platelet Volume 6.2 FL (6.5-10.1) L Neutrophils (%) (Auto) % (45.0-75.0) Lymphocytes (%) (Auto) % (20.0-45.0) Monocytes (%) (Auto) % (1.0-10.0) Eosinophils (%) (Auto) % (0.0-3.0) Basophils (%) (Auto) % (0.0-2.0) Sodium Level 129 MMOL/L (136-145) L Potassium Level 5.2 MMOL/L (3.5-5.1) H Chloride Level 98 MMOL/L (98-107) Carbon Dioxide Level 24 MMOL/L (21-32) Anion Gap 7 mmol/L (5-15) Blood Urea Nitrogen 105 mg/dL (7-18) H Creatinine 3.8 MG/DL (0.55-1.30) H Estimat Glomerular Filtration Rate mL/min (>60) Glucose Level 142 MG/DL (74-106) H Calcium Level 9.1 MG/DL (8.5-10.1) Reticulocyte Count 2.4 % (0.0-2.0) H Fibrinogen 367 mg/dL (200-400) Calcium (Send out) Pending Iron Level 24 ug/dL (50-175) L Total Iron Binding Capacity 94 ug/dL (250-450) L Percent Iron Saturation 26 % (15-50) Unsaturated Iron Binding 70 ug/dL (112-346) L Ferritin 950 NG/ML (8-388) H Vitamin B12 Level 1152 PG/ML (193-986) H Folate 46.7 NG/ML (8.6-58.9) Parathyroid Hormone (Intact) Pending Hepatitis A IgM Antibody Pending Hepatitis B Surface Antigen Pending Hepatitis B Core IgM Antibody Pending Hepatitis C Antibody Pending Height (Feet): 5 Height (Inches): 4.00 Weight (Pounds): 124 General Appearance: no apparent distress Cardiovascular: normal rate Respiratory/Chest: normal breath sounds, no respiratory distress Abdominal Exam: GT site - c/d/i Janene Ellis NP Jul 01, 2018 13:15
[2018-07-01 16:00] VITALS: BP 144/67
--- NOTE | 2018-07-01 19:05 | Cardiology Report ---
APPROVED REPORT EKG Measurement Heart [id number] Normal sinus rhythm Right axis deviation Abnormal ECG
[2018-07-01 20:00] VITALS: BP_SYST 145; BP_SYST 148; BP_DIAS 64; BP_DIAS 78
[2018-07-01] MEDS: Miralax 17gm pkt GT SCH (20:50)
[2018-07-02] VITALS: BP 141/59
[2018-07-02 04:00] VITALS: BP 143/62
[2018-07-02 06:58] LABS: BASOPHILS % (AUTO) 0.6 % (0.0-2.0); EOSINOPHILS % (AUTO) 0.3 % (0.0-3.0); HEMATOCRIT 34.2 % (37.0-47.0); HEMOGLOBIN 11.3 G/DL (12.0-16.0); LYMPHOCYTES % (AUTO) 5.8 % (20.0-45.0); MEAN CORPUSCULAR VOLUME 98 FL (80-99); MONOCYTES % (AUTO) 10.8 % (1.0-10.0); NEUTROPHILS % (AUTO) 82.5 % (45.0-75.0); PLATELET COUNT 130 K/UL (150-450); RED BLOOD COUNT 3.47 M/UL (4.20-5.40); WHITE BLOOD COUNT 9.5 K/UL (4.8-10.8)
[2018-07-02 07:25] LABS: ANION GAP 12 mmol/L (5-15); BLOOD UREA NITROGEN 94 mg/dL (7-18); CALCIUM 8.8 MG/DL (8.5-10.1); CARBON DIOXIDE 21 MMOL/L (21-32); CHLORIDE 97 MMOL/L (98-107); CREATININE 3.7 MG/DL (0.55-1.30); POTASSIUM 4.7 MMOL/L (3.5-5.1); SODIUM 130 MMOL/L (136-145)
[2018-07-02 08:00] VITALS: BP 152/66
[2018-07-02] MEDS: Pantoprazole Inj IV SCH (09:59)
[2018-07-02] MEDS: Mineral Oil 30ml ud GT SCH (10:00)
[2018-07-02] MEDS: Minoxidil 2.5mg tab GT SCH ×2 (10:00→18:54)
--- NOTE | 2018-07-02 10:41 | General Progress Note ---
Assessment/Plan Assessment/Plan # Thrombocytopenia -- medication, infection or liver related --> hepatitis negative and hiv is pending --> CT of the a/p reviewed and shows SPLENOMEGALY # 2.5 centimeter right renal mass -- renal function is poor to begin with and she is elderly and debilitated with multiple medical issues. I would recommend close surveillance of the mass to begin with. --> agree with urology recommendations for surveillance and q6-12mo imaging and if larger act at that time --> no hydronephrosis is noted --> would not recommend tumor markers at this time --> no further imaging indicated # FTT - s/p gtube insertion --> peg tube feeds --> properly functioning # Diabetes # Coronary artery disease # Organic brain syndrome. She presents to the hospital with nausea and vomiting which is intractable. # Fecal impaction on CT scan. Greatly appreciate consultation! Subjective Constitutional: Denies: no symptoms, chills, diaphoresis, fever, malaise, weakness, other HEENT: Denies: no symptoms, eye pain, blurred vision, tearing, double vision, ear pain, ear discharge, nose pain, nose congestion, throat pain, throat swelling, mouth pain, mouth swelling, other Cardiovascular: Denies: no symptoms, chest pain, edema, irregular heart rate, lightheadedness, palpitations, syncope, other Respiratory: Denies: no symptoms, cough, orthopnea, shortness of breath, SOB with excertion, SOB at rest, sputum, stridor, wheezing, other Gastrointestinal/Abdominal: Denies: no symptoms, abdomen distended, abdominal pain, black stools, tarry stools, blood in stool, constipated, diarrhea, difficulty swallowing, nausea, poor appetite, poor fluid intake, rectal bleeding , vomiting, other Genitourinary: Denies: no symptoms, burning, discharge, frequency, flank pain, hematuria, incontinence, pain, urgency, other Neurologic/Psychiatric: Denies: no symptoms, anxiety, depressed, emotional problems, headache, numbness, paresthesia, pre-existing deficit, seizure, tingling, tremors, weakness, other Endocrine: Denies: no symptoms, excessive sweating, flushing, intolerance to cold, intolerance to heat, increased hunger, increased thirst, increased urine, unexplained weight gain, unexplained weight loss, other Hematologic/Lymphatic: Denies: no symptoms, anemia, easy bleeding, easy bruising, other Allergies: Coded Allergies: No Known Allergies (Unverified , 05/11/18) Subjective no events, no f/c, avf in place Objective Last 24 Hour Vital Signs Date Time Temp Pulse Resp B/P (MAP) Pulse Ox O2 Delivery O2 Flow Rate FiO2 07/02/18 10:00 152/66 07/02/18 08:00 97.0 69 18 152/66 (94) 96 97.0 07/02/18 07:44 72 18 Room Air 21 07/02/18 04:00 97.7 81 19 143/62 (89) 97 97.7 07/02/18 01:19 72 07/02/18 00:00 98.0 78 18 141/59 (86) 96 98.0 07/01/18 21:00 Room Air 07/01/18 20:00 80 07/01/18 20:00 97.9 81 19 148/64 (92) 97 97.9 07/01/18 18:41 144/67 07/01/18 16:00 97.7 71 20 144/67 (92) 99 97.7 07/01/18 16:00 92 07/01/18 12:00 97.9 92 20 138/72 (94) 98 97.9 07/01/18 12:00 92 Intake and Output 07/01/18 07/02/18 19:00 07:00 # Voids 2 Laboratory Tests 07/01/18 16:00: Stool Occult Blood [Pending] 07/02/18 06:05: White Blood Count 9.5, Red Blood Count 3.47L, Hemoglobin 11.3L, Hematocrit 34.2L , Mean Corpuscular Volume 98, Mean Corpuscular Hemoglobin 32.4H, Mean Corpuscular Hemoglobin Concent 32.9, Red Cell Distribution Width 14.0, Platelet Count 130L, Mean Platelet Volume 6.0L, Neutrophils (%) (Auto) 82.5H, Lymphocytes (%) (Auto) 5.8L, Monocytes (%) (Auto) 10.8H, Eosinophils (%) (Auto) 0.3, Basophils (%) (Auto) 0.6, Sodium Level 130L, Potassium Level 4.7, Chloride Level 97L, Carbon Dioxide Level 21, Anion Gap 12, Blood Urea Nitrogen 94H, Creatinine 3.7H, Estimat Glomerular Filtration Rate , Glucose Level 91, Calcium Level 8.8 Height (Feet): 5 Height (Inches): 4.00 Weight (Pounds): 152 General Appearance: no apparent distress EENT: TMs normal Neck: supple Cardiovascular: regular rhythm Respiratory/Chest: lungs clear Abdomen: other - peg++ Extremities: non-tender Edema: mild edema Neurologic: responsive Blayne Carroll MD Jul 02, 2018 10:41
[2018-07-02 12:00] VITALS: BP 139/80
--- NOTE | 2018-07-02 13:00 | GI Progress Note ---
Assessment/Plan Problems: (1) Gastrostomy tube dependent ICD Codes: Z93.1 - Gastrostomy status SNOMED: 161177104, 234106761 (2) Vomiting ICD Codes: R11.10 - Vomiting, unspecified SNOMED: 849287881 (3) Fecal impaction ICD Codes: K56.41 - Fecal impaction SNOMED: 71508801 (4) Hematemesis ICD Codes: K92.0 - Hematemesis SNOMED: 9173941 Status: doing well Status Narrative Discussed with Dr. Taylor. Assessment/Plan CT AP reviewed >> severe fecal impaction, now resolving (had additional BM today ) no anemia GTFs per RD to goal, tolerating bowel regime electrolyte correction ppi fu labs The patient was seen and examined at bedside and all new and available data was reviewed in the patients chart. I agree with the above findings, impression and plan. (Patient seen earlier today. Signature stamp does not reflect patient encounter time.). - Hilton Taylor MD Subjective Subjective limited Objective Last 24 Hour Vital Signs Date Time Temp Pulse Resp B/P (MAP) Pulse Ox O2 Delivery O2 Flow Rate FiO2 07/02/18 12:00 97.0 71 19 139/80 (99) 96 97.0 07/02/18 12:00 65 07/02/18 10:00 152/66 07/02/18 09:00 Room Air 07/02/18 08:00 69 07/02/18 08:00 97.0 69 18 152/66 (94) 96 97.0 07/02/18 07:44 72 18 Room Air 21 07/02/18 04:00 97.7 81 19 143/62 (89) 97 97.7 07/02/18 01:19 72 07/02/18 00:00 98.0 78 18 141/59 (86) 96 98.0 07/01/18 21:00 Room Air 07/01/18 20:00 80 07/01/18 20:00 97.9 81 19 148/64 (92) 97 97.9 07/01/18 18:41 144/67 07/01/18 16:00 97.7 71 20 144/67 (92) 99 97.7 07/01/18 16:00 92 Intake and Output 07/01/18 07/02/18 19:00 07:00 # Voids 2 Laboratory Tests Test 07/01/18 16:00 07/02/18 06:05 Stool Occult Blood Negative (NEGATIVE) White Blood Count 9.5 K/UL (4.8-10.8) Red Blood Count 3.47 M/UL (4.20-5.40) L Hemoglobin 11.3 G/DL (12.0-16.0) L Hematocrit 34.2 % (37.0-47.0) L Mean Corpuscular Volume 98 FL (80-99) Mean Corpuscular Hemoglobin 32.4 PG (27.0-31.0) H Mean Corpuscular Hemoglobin Concent 32.9 G/DL (32.0-36.0) Red Cell Distribution Width 14.0 % (11.6-14.8) Platelet Count 130 K/UL (150-450) L Mean Platelet Volume 6.0 FL (6.5-10.1) L Neutrophils (%) (Auto) 82.5 % (45.0-75.0) H Lymphocytes (%) (Auto) 5.8 % (20.0-45.0) L Monocytes (%) (Auto) 10.8 % (1.0-10.0) H Eosinophils (%) (Auto) 0.3 % (0.0-3.0) Basophils (%) (Auto) 0.6 % (0.0-2.0) Sodium Level 130 MMOL/L (136-145) L Potassium Level 4.7 MMOL/L (3.5-5.1) Chloride Level 97 MMOL/L (98-107) L Carbon Dioxide Level 21 MMOL/L (21-32) Anion Gap 12 mmol/L (5-15) Blood Urea Nitrogen 94 mg/dL (7-18) H Creatinine 3.7 MG/DL (0.55-1.30) H Estimat Glomerular Filtration Rate mL/min (>60) Glucose Level 91 MG/DL (74-106) Calcium Level 8.8 MG/DL (8.5-10.1) HIV (1&2) Antibody Rapid Negative (NEGATIVE) Height (Feet): 5 Height (Inches): 4.00 Weight (Pounds): 152 General Appearance: WD/WN, no apparent distress, alert Cardiovascular: normal rate Respiratory/Chest: normal breath sounds, no respiratory distress Abdominal Exam: normal bowel sounds, non tender, soft Extremities: normal range of motion, non-tender Janene Ellis NP Jul 02, 2018 13:00
[2018-07-02] MEDS ORDERED: Metoclopramide 10mg/2ml Inj IVP PRN ×2 (13:02→21:45)
--- NOTE | 2018-07-02 13:29 | Nephrology Progress Note ---
Assessment/Plan Plan ESRD - HD tomorrow CHF - stable. Fecal impaction -per GI. Rt. newly diagnosed Renal Cell CA - Per no surgical intervention. Patient too high risk. Subjective Subjective Alert. No c/o. Confused. Objective Objective Last 24 Hour Vital Signs Date Time Temp Pulse Resp B/P (MAP) Pulse Ox O2 Delivery O2 Flow Rate FiO2 07/02/18 12:00 97.0 71 19 139/80 (99) 96 97.0 07/02/18 12:00 65 07/02/18 10:00 152/66 07/02/18 09:00 Room Air 07/02/18 08:00 69 07/02/18 08:00 97.0 69 18 152/66 (94) 96 97.0 07/02/18 07:44 72 18 Room Air 21 07/02/18 04:00 97.7 81 19 143/62 (89) 97 97.7 07/02/18 01:19 72 07/02/18 00:00 98.0 78 18 141/59 (86) 96 98.0 07/01/18 21:00 Room Air 07/01/18 20:00 80 07/01/18 20:00 97.9 81 19 148/64 (92) 97 97.9 07/01/18 18:41 144/67 07/01/18 16:00 97.7 71 20 144/67 (92) 99 97.7 07/01/18 16:00 92 Intake and Output 07/01/18 07/02/18 19:00 07:00 # Voids 2 Laboratory Tests 07/01/18 16:00: Stool Occult Blood Negative 07/02/18 06:05: White Blood Count 9.5, Red Blood Count 3.47L, Hemoglobin 11.3L, Hematocrit 34.2L , Mean Corpuscular Volume 98, Mean Corpuscular Hemoglobin 32.4H, Mean Corpuscular Hemoglobin Concent 32.9, Red Cell Distribution Width 14.0, Platelet Count 130L, Mean Platelet Volume 6.0L, Neutrophils (%) (Auto) 82.5H, Lymphocytes (%) (Auto) 5.8L, Monocytes (%) (Auto) 10.8H, Eosinophils (%) (Auto) 0.3, Basophils (%) (Auto) 0.6, Sodium Level 130L, Potassium Level 4.7, Chloride Level 97L, Carbon Dioxide Level 21, Anion Gap 12, Blood Urea Nitrogen 94H, Creatinine 3.7H, Estimat Glomerular Filtration Rate , Glucose Level 91, Calcium Level 8.8, HIV (1&2) Antibody Rapid Negative Height (Feet): 5 Height (Inches): 4.00 Weight (Pounds): 152 Objective CV RR Lungs CTA Abd SNT. BS +. PEG OK. E No CCE. GIANNI AVF + bruit. Raul Cannon MD Jul 02, 2018 13:29
[2018-07-02 16:00] VITALS: BP 137/53
--- NOTE | 2018-07-02 17:03 | Consultation ---
History of Present Illness General Date patient seen: Jul 02, 2018 Chief Complaint: General Complaint Referring physician: YSABEL READ Reason for Consultation: VOMITING Present Illness HPI 72 year old female residential resident with multiple medical comorbidities currently admitted for emesis and SOB concerns for aspiration. On admission CT noted fecal impaction with distended rectum, renal mass, small bowel thickening. Also noted to have stage IV sacral ulcer on admission. surgery called to evaluate and assist with care /management. patient seen, chart reviewed, patient examined. Allergies: Coded Allergies: No Known Allergies (Unverified , 05/11/18) Medication History Scheduled Amino Acids/Protein Hydrolys (Pro-Stat Liquid), 30 ML ORAL TID, (Reported) Amlodipine Besylate* (Amlodipine Besylate*), 10 MG GT DAILY, (Reported) Amlodipine Besylate* (Amlodipine Besylate*), 10 MG GT DAILY, (Reported) Folic Acid/Vitamin B Comp W-C (Sandra-Ash Tablet), 0.8 MG GT DAILY, (Reported) Heparin Sod (Porcine) (Heparin Sodium*), 5,000 UNITS SUBQ EVERY 12 HOURS, ( Reported) Heparin Sod (Porcine) (Heparin Sodium*), 5,000 UNITS SUBQ EVERY 12 HOURS, ( Reported) Levothyroxine Sodium* (Synthroid*), 150 MCG GT DAILY, (Reported) Levothyroxine Sodium* (Levothyroxine Sodium*), 150 MCG GT DAILY, (Reported) Lorazepam* (Ativan*), 1 MG GT BEDTIME, (Reported) Lorazepam* (Ativan*), 1 MG GT 3XW, (Reported) Minoxidil* (Loniten*), 2.5 MG GT BID, (Reported) Minoxidil* (Loniten*), 2.5 MG GT BID, (Reported) Scheduled PRN Acetaminophen* (Tylenol Extra Strength*), 500 MG GT Q4HR PRN for Mild Pain/Temp > 100.5, (Reported) Acetaminophen* (Tylenol Extra Strength*), 500 MG ORAL Q4HR PRN for Prn Headache/ Temp > 101, (Reported) Miscellaneous Medications Insulin Aspart* (Novolog*), 0 SUBQ, (Reported) Insulin Aspart* (Novolog*), 0 SUBQ, (Reported) Unable to Obtain Medications (Unable To Obtain Meds), (Reported) Patient History Limited by: medical condition History Provided By: Medical Record, PMD Healthcare decision maker CONSERVATOR Resuscitation status Full Code Advanced Directive on File Past Medical/Surgical History Past Medical/Surgical History: (1) CHF (congestive heart failure) (2) Pulmonary edema (3) Respiratory failure (4) Hypoxia (5) End stage renal disease on dialysis (6) Aspiration pneumonia (7) UTI (urinary tract infection) (8) Fecal impaction (9) Vomiting (10) Gastrostomy tube dependent (11) Hematemesis Review of Systems ROS Narrative cannot obtain given medical condition Physical Exam General Appearance: no apparent distress Lines, tubes and drains: other HEENT: mucous membranes moist Neck: normal inspection Respiratory/Chest: normal breath sounds, decreased breath sounds Cardiovascular/Chest: normal rate Abdomen: normal bowel sounds, soft, no organomegaly, no mass Extremities: other Skin Exam: other Last 24 Hour Vital Signs Date Time Temp Pulse Resp B/P (MAP) Pulse Ox O2 Delivery O2 Flow Rate FiO2 07/02/18 16:00 73 07/02/18 16:00 98.6 77 19 137/53 (81) 98 98.6 07/02/18 12:00 97.0 71 19 139/80 (99) 96 97.0 07/02/18 12:00 65 07/02/18 10:00 152/66 07/02/18 09:00 Room Air 07/02/18 08:00 69 07/02/18 08:00 97.0 69 18 152/66 (94) 96 97.0 07/02/18 07:44 72 18 Room Air 21 07/02/18 04:00 97.7 81 19 143/62 (89) 97 97.7 07/02/18 01:19 72 07/02/18 00:00 98.0 78 18 141/59 (86) 96 98.0 07/01/18 21:00 Room Air 07/01/18 20:00 80 07/01/18 20:00 97.9 81 19 148/64 (92) 97 97.9 07/01/18 18:41 144/67 Intake and Output 07/01/18 07/02/18 19:00 07:00 # Voids 2 Laboratory Tests Test 07/02/18 06:05 White Blood Count 9.5 K/UL (4.8-10.8) Red Blood Count 3.47 M/UL (4.20-5.40) L Hemoglobin 11.3 G/DL (12.0-16.0) L Hematocrit 34.2 % (37.0-47.0) L Mean Corpuscular Volume 98 FL (80-99) Mean Corpuscular Hemoglobin 32.4 PG (27.0-31.0) H Mean Corpuscular Hemoglobin Concent 32.9 G/DL (32.0-36.0) Red Cell Distribution Width 14.0 % (11.6-14.8) Platelet Count 130 K/UL (150-450) L Mean Platelet Volume 6.0 FL (6.5-10.1) L Neutrophils (%) (Auto) 82.5 % (45.0-75.0) H Lymphocytes (%) (Auto) 5.8 % (20.0-45.0) L Monocytes (%) (Auto) 10.8 % (1.0-10.0) H Eosinophils (%) (Auto) 0.3 % (0.0-3.0) Basophils (%) (Auto) 0.6 % (0.0-2.0) Sodium Level 130 MMOL/L (136-145) L Potassium Level 4.7 MMOL/L (3.5-5.1) Chloride Level 97 MMOL/L (98-107) L Carbon Dioxide Level 21 MMOL/L (21-32) Anion Gap 12 mmol/L (5-15) Blood Urea Nitrogen 94 mg/dL (7-18) H Creatinine 3.7 MG/DL (0.55-1.30) H Estimat Glomerular Filtration Rate mL/min (>60) Glucose Level 91 MG/DL (74-106) Calcium Level 8.8 MG/DL (8.5-10.1) HIV (1&2) Antibody Rapid Negative (NEGATIVE) Height (Feet): 5 Height (Inches): 4.00 Weight (Pounds): 152 Medications Current Medications Medications (Trade) Dose Ordered Sig/Konrad Route PRN Reason Start Time Stop Time Status Last Admin Dose Admin Acetaminophen (Tylenol) 650 mg Q4H PRN RECTAL fever 06/30/18 12:15 07/30/18 12:14 Albuterol/ Ipratropium (Albuterol/ Ipratropium) 3 ml Q6HR PRN HHN Shortness of Breath 06/30/18 12:15 07/05/18 12:14 Dextrose (Dextrose 50%) 25 ml Q30M PRN IV Hypoglycemia 06/30/18 12:15 07/30/18 12:14 Dextrose (Dextrose 50%) 50 ml Q30M PRN IV Hypoglycemia 06/30/18 12:15 07/30/18 12:14 Heparin Sodium (Porcine) (Heparin Sod 1000 units/ml 10ml) 2,000 unit ONCE PRN IV DIALYSIS 07/03/18 13:45 07/03/18 23:59 Iopamidol (Isovue-300 100ml) 100 ml NOW PRN INJ Radiology Procedure 06/30/18 11:00 Metoclopramide HCl (Reglan) 10 mg Q6H PRN IVP Nausea & Vomiting 07/02/18 13:02 08/01/18 13:01 Mineral Oil (Mineral Oil) 30 ml DAILY GT 06/30/18 17:00 07/30/18 16:59 07/02/18 10:00 Minoxidil (Loniten) 5 mg BID GT 06/30/18 18:00 07/30/18 17:59 07/02/18 10:00 Ondansetron HCl (Zofran) 4 mg Q6H PRN IVP Nausea & Vomiting 06/30/18 12:33 07/30/18 12:32 Pantoprazole (Protonix) 40 mg DAILY IV 07/01/18 09:00 07/31/18 08:59 07/02/18 09:59 Polyethylene Glycol (Miralax) 17 gm BEDTIME GT 06/30/18 21:00 07/30/18 20:59 07/01/18 20:50 Sodium Chloride 1,000 ml @ 500 mls/hr Q2H PRN IVLG sbp<90 during hd 07/03/18 13:31 08/02/18 13:30 Assessment/Plan Problem List: (1) Stage 4 decubitus ulcer Assessment & Plan: Stage IV sacral decubitus ulcer in center of dark non- blanchable erythema with induration to sacrum (L)10.5cm x(W)12cm. full thickness wound at coccyx (L)1.5cm x 1.2cm x(D)1.5cm .Bone is palpable Medial L heel non-blanchable ,fluctuant with small maroon discoloration within borders. R heel boggy-red but slow to ekta. Plan: Cleanse wound with saline. Apply Hydrogel into wound.Swab non-blanchable areas with Cavilon wipe and cover with Large Biatain drsg Daily and prn. Please upgrade to P200 Air Fluidized mattress. Cavilon wipes to both heels and continue to off-load. ICD Codes: L89.94 - Pressure ulcer of unspecified site, stage 4 SNOMED: 615481113 Qualifiers: Qualified Codes: L89.154 - Pressure ulcer of sacral region, stage 4 (2) Fecal impaction Assessment & Plan: patient had BM today. will obtain KUB follow up diet as tolerated via feeds no acute surgical intervention necessary stool softener ICD Codes: K56.41 - Fecal impaction SNOMED: 86145946 Justice Rajan Jul 02, 2018 17:03
[2018-07-02 20:00] VITALS: BP 137/50
[2018-07-02] MEDS ORDERED: Albuterol/Ipratropium 3ml neb HHN PRN (21:45)
[2018-07-02] MEDS ORDERED: Acetaminophen 650 MG SUPP RECTAL PRN (21:45)
[2018-07-02] MEDS: Miralax 17gm pkt GT SCH (22:03)
[2018-07-03] VITALS: BP 151/62
[2018-07-03 04:00] VITALS: BP 115/68
[2018-07-03 07:42] LABS: BASOPHILS % (AUTO) 0.6 % (0.0-2.0); EOSINOPHILS % (AUTO) 0.3 % (0.0-3.0); HEMATOCRIT 30.1 % (37.0-47.0); MEAN CORPUSCULAR VOLUME 98 FL (80-99); MONOCYTES % (AUTO) 11.7 % (1.0-10.0); NEUTROPHILS % (AUTO) 83.5 % (45.0-75.0); PLATELET COUNT 128 K/UL (150-450); RED BLOOD COUNT 3.07 M/UL (4.20-5.40); WHITE BLOOD COUNT 9.9 K/UL (4.8-10.8)
[2018-07-03 08:00] VITALS: BP 147/68
[2018-07-03 08:05] LABS: ANION GAP 15 mmol/L (5-15); BLOOD UREA NITROGEN 116 mg/dL (7-18); CALCIUM 8.5 MG/DL (8.5-10.1); CARBON DIOXIDE 19 MMOL/L (21-32); CHLORIDE 95 MMOL/L (98-107); CREATININE 4.4 MG/DL (0.55-1.30); PHOSPHORUS 3.6 MG/DL (2.5-4.9); POTASSIUM 4.7 MMOL/L (3.5-5.1); SODIUM 129 MMOL/L (136-145)
[2018-07-03] MEDS: Pantoprazole Inj IV SCH (09:29)
[2018-07-03] MEDS: Mineral Oil 30ml ud GT SCH (09:29)
[2018-07-03] MEDS: Minoxidil 2.5mg tab GT SCH (09:30)
--- NOTE | 2018-07-03 09:41 | General Progress Note ---
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 I would recommend close surveillance of the mass to begin with. --> agree with urology recommendations for surveillance and q6-12mo imaging and if larger act at that time --> no hydronephrosis is noted --> would not recommend tumor markers at this time --> no further imaging indicated # Anemia of chronic disease -- anemia panel has been reviewed --> no evidence of hemolysis is noted --> hgb goal >7 # FTT - s/p gtube insertion --> peg tube feeds --> properly functioning # Diabetes # Coronary artery disease # Organic brain syndrome. She presents to the hospital with nausea and vomiting which is intractable. # Fecal impaction on CT scan. Greatly appreciate consultation! Subjective Constitutional: Denies: no symptoms, chills, diaphoresis, fever, malaise, weakness, other HEENT: Denies: no symptoms, eye pain, blurred vision, tearing, double vision, ear pain, ear discharge, nose pain, nose congestion, throat pain, throat swelling, mouth pain, mouth swelling, other Cardiovascular: Denies: no symptoms, chest pain, edema, irregular heart rate, lightheadedness, palpitations, syncope, other Respiratory: Denies: no symptoms, cough, orthopnea, shortness of breath, SOB with excertion, SOB at rest, sputum, stridor, wheezing, other Gastrointestinal/Abdominal: Denies: no symptoms, abdomen distended, abdominal pain, black stools, tarry stools, blood in stool, constipated, diarrhea, difficulty swallowing, nausea, poor appetite, poor fluid intake, rectal bleeding , vomiting, other Genitourinary: Denies: no symptoms, burning, discharge, frequency, flank pain, hematuria, incontinence, pain, urgency, other Neurologic/Psychiatric: Denies: no symptoms, anxiety, depressed, emotional problems, headache, numbness, paresthesia, pre-existing deficit, seizure, tingling, tremors, weakness, other Endocrine: Denies: no symptoms, excessive sweating, flushing, intolerance to cold, intolerance to heat, increased hunger, increased thirst, increased urine, unexplained weight gain, unexplained weight loss, other Allergies: Coded Allergies: No Known Allergies (Unverified , 05/11/18) Subjective no events, no f/c, avf in place, pth elevated Objective Last 24 Hour Vital Signs Date Time Temp Pulse Resp B/P (MAP) Pulse Ox O2 Delivery O2 Flow Rate FiO2 07/03/18 09:30 147/68 07/03/18 08:00 98.6 73 20 147/68 (94) 97 98.6 07/03/18 04:00 98.6 88 20 115/68 (84) 97 98.6 07/03/18 00:00 98.1 81 18 151/62 (91) 98 98.1 07/02/18 21:00 Room Air 07/02/18 20:00 98.8 73 18 137/50 (79) 97 98.8 07/02/18 19:52 78 18 Room Air 21 07/02/18 18:54 137/53 07/02/18 16:00 73 07/02/18 16:00 98.6 77 19 137/53 (81) 98 98.6 07/02/18 12:00 97.0 71 19 139/80 (99) 96 97.0 07/02/18 12:00 65 07/02/18 10:00 152/66 Intake and Output 07/02/18 07/03/18 19:00 07:00 Intake Total 610 ml Balance 610 ml Free Water 260 ml Tube Feeding 350 ml # Voids 1 1 # Bowel Movements 2 1 Laboratory Tests 07/03/18 06:15: White Blood Count 9.9, Red Blood Count 3.07L, Hemoglobin 10.0L, Hematocrit 30.1L , Mean Corpuscular Volume 98, Mean Corpuscular Hemoglobin 32.6H, Mean Corpuscular Hemoglobin Concent 33.2, Red Cell Distribution Width 14.0, Platelet Count 128L, Mean Platelet Volume 6.1L, Neutrophils (%) (Auto) 83.5H, Lymphocytes (%) (Auto) 4.0L, Monocytes (%) (Auto) 11.7H, Eosinophils (%) (Auto) 0.3, Basophils (%) (Auto) 0.6, Sodium Level 129L, Potassium Level 4.7, Chloride Level 95L, Carbon Dioxide Level 19L, Anion Gap 15, Blood Urea Nitrogen 116H, Creatinine 4.4H, Estimat Glomerular Filtration Rate , Glucose Level 166H, Calcium Level 8.5, Phosphorus Level 3.6, Magnesium Level 2.4 Height (Feet): 5 Height (Inches): 4.00 Weight (Pounds): 152 General Appearance: no apparent distress EENT: TMs normal Neck: supple Cardiovascular: regular rhythm Respiratory/Chest: normal breath sounds Abdomen: soft, other - s/p gtube insertion Extremities: non-tender Edema: 1+ Leg (L), 1+ Leg (R) Neurologic: oriented x 3 Skin: warm/dry Blayne Carroll MD Jul 03, 2018 09:41
[2018-07-03] MEDS ORDERED: Isovue-300 100ml vial INJ PRN (11:00)
--- NOTE | 2018-07-03 11:02 | Diagnostic Imaging Report ---
Indication: Abdominal pain Comparison: None Single view of the abdomen obtained Findings: Bowel gas pattern is nonspecific. The rectum is distended due to feces. No mass, ectopic calcifications, or abnormal gas collections are identified. The bones are unremarkable. Impression: No acute findings. Retention of stool in the rectum
[2018-07-03 12:00] VITALS: BP 152/66
--- NOTE | 2018-07-03 12:12 | GI Progress Note ---
Assessment/Plan Problems: (1) Gastrostomy tube dependent ICD Codes: Z93.1 - Gastrostomy status SNOMED: 849927410, 323547813 (2) Vomiting ICD Codes: R11.10 - Vomiting, unspecified SNOMED: 853039080 (3) Fecal impaction ICD Codes: K56.41 - Fecal impaction SNOMED: 81997766 (4) Hematemesis ICD Codes: K92.0 - Hematemesis SNOMED: 7665740 Status: stable Status Narrative Discussed with Dr. Taylor. Assessment/Plan CT AP reviewed >> severe fecal impaction, resolved. intractable N/V, resolved. no anemia okay for DC per GI standpoint GTFs per RD to goal, tolerating bowel regime electrolyte correction ppi fu labs The patient was seen and examined at bedside and all new and available data was reviewed in the patients chart. I agree with the above findings, impression and plan. (Patient seen earlier today. Signature stamp does not reflect patient encounter time.). - Hilton Taylor MD Subjective Subjective limited Objective Last 24 Hour Vital Signs Date Time Temp Pulse Resp B/P (MAP) Pulse Ox O2 Delivery O2 Flow Rate FiO2 07/03/18 09:30 147/68 07/03/18 09:00 Room Air 07/03/18 08:24 72 18 Room Air 21 07/03/18 08:00 98.6 73 20 147/68 (94) 97 98.6 07/03/18 04:00 98.6 88 20 115/68 (84) 97 98.6 07/03/18 00:00 98.1 81 18 151/62 (91) 98 98.1 07/02/18 21:00 Room Air 07/02/18 20:00 98.8 73 18 137/50 (79) 97 98.8 07/02/18 19:52 78 18 Room Air 21 07/02/18 18:54 137/53 07/02/18 16:00 73 07/02/18 16:00 98.6 77 19 137/53 (81) 98 98.6 Intake and Output 07/02/18 07/03/18 19:00 07:00 Intake Total 610 ml Balance 610 ml Free Water 260 ml Tube Feeding 350 ml # Voids 1 1 # Bowel Movements 2 1 Laboratory Tests Test 07/03/18 06:15 White Blood Count 9.9 K/UL (4.8-10.8) Red Blood Count 3.07 M/UL (4.20-5.40) L Hemoglobin 10.0 G/DL (12.0-16.0) L Hematocrit 30.1 % (37.0-47.0) L Mean Corpuscular Volume 98 FL (80-99) Mean Corpuscular Hemoglobin 32.6 PG (27.0-31.0) H Mean Corpuscular Hemoglobin Concent 33.2 G/DL (32.0-36.0) Red Cell Distribution Width 14.0 % (11.6-14.8) Platelet Count 128 K/UL (150-450) L Mean Platelet Volume 6.1 FL (6.5-10.1) L Neutrophils (%) (Auto) 83.5 % (45.0-75.0) H Lymphocytes (%) (Auto) 4.0 % (20.0-45.0) L Monocytes (%) (Auto) 11.7 % (1.0-10.0) H Eosinophils (%) (Auto) 0.3 % (0.0-3.0) Basophils (%) (Auto) 0.6 % (0.0-2.0) Sodium Level 129 MMOL/L (136-145) L Potassium Level 4.7 MMOL/L (3.5-5.1) Chloride Level 95 MMOL/L (98-107) L Carbon Dioxide Level 19 MMOL/L (21-32) L Anion Gap 15 mmol/L (5-15) Blood Urea Nitrogen 116 mg/dL (7-18) H Creatinine 4.4 MG/DL (0.55-1.30) H Estimat Glomerular Filtration Rate mL/min (>60) Glucose Level 166 MG/DL (74-106) H Calcium Level 8.5 MG/DL (8.5-10.1) Phosphorus Level 3.6 MG/DL (2.5-4.9) Magnesium Level 2.4 MG/DL (1.8-2.4) Height (Feet): 5 Height (Inches): 4.00 Weight (Pounds): 152 General Appearance: WD/WN, no apparent distress, alert Cardiovascular: normal rate Respiratory/Chest: normal breath sounds, no respiratory distress Abdominal Exam: normal bowel sounds, non tender, soft, GT site - c/d/i Extremities: normal range of motion, non-tender Janene Ellis NP Jul 03, 2018 12:12
[2018-07-03] MEDS ORDERED: Heparin Sod 1000 units/ml 10ml IV PRN (13:45)
[2018-07-03] MEDS ORDERED: Heparin Sod 1000 units/ml 10ml IV SCH (13:45)
[2018-07-03 14:17] LABS: EOSINOPHILS % (AUTO) 0.1 % (0.0-3.0); HEMATOCRIT 30.1 % (37.0-47.0); LYMPHOCYTES % (AUTO) 3.8 % (20.0-45.0); MEAN CORPUSCULAR VOLUME 98 FL (80-99); MONOCYTES % (AUTO) 11.4 % (1.0-10.0); NEUTROPHILS % (AUTO) 83.7 % (45.0-75.0); PLATELET COUNT 121 K/UL (150-450); RED BLOOD COUNT 3.08 M/UL (4.20-5.40); RED CELL DISTRIBUTION WIDTH 13.4 % (11.6-14.8); WHITE BLOOD COUNT 10.6 K/UL (4.8-10.8)
[2018-07-03 14:34] LABS: ANION GAP 11 mmol/L (5-15); BLOOD UREA NITROGEN 124 mg/dL (7-18); CALCIUM 8.6 MG/DL (8.5-10.1); CARBON DIOXIDE 21 MMOL/L (21-32); CHLORIDE 96 MMOL/L (98-107); CREATININE 4.6 MG/DL (0.55-1.30); PHOSPHORUS 3.9 MG/DL (2.5-4.9); POTASSIUM 4.9 MMOL/L (3.5-5.1); SODIUM 128 MMOL/L (136-145)
--- NOTE | 2018-07-03 15:13 | General Surgery Progress Note ---
General Surgery-Progress Note Subjective Additional Comments no acute events. stable. Objective Last 24 Hour Vital Signs Date Time Temp Pulse Resp B/P (MAP) Pulse Ox O2 Delivery O2 Flow Rate FiO2 07/03/18 12:00 97.1 84 20 152/66 (94) 97 97.1 07/03/18 09:30 147/68 07/03/18 09:00 Room Air 07/03/18 08:24 72 18 Room Air 21 07/03/18 08:00 98.6 73 20 147/68 (94) 97 98.6 07/03/18 04:00 98.6 88 20 115/68 (84) 97 98.6 07/03/18 00:00 98.1 81 18 151/62 (91) 98 98.1 07/02/18 21:00 Room Air 07/02/18 20:00 98.8 73 18 137/50 (79) 97 98.8 07/02/18 19:52 78 18 Room Air 21 07/02/18 18:54 137/53 07/02/18 16:00 73 07/02/18 16:00 98.6 77 19 137/53 (81) 98 98.6 I&O Intake and Output 07/02/18 07/03/18 19:00 07:00 Intake Total 610 ml Balance 610 ml Free Water 260 ml Tube Feeding 350 ml # Voids 1 1 # Bowel Movements 2 1 Dressing: other Wound: other Drains: other Cardiovascular: RSR Respiratory: clear Abdomen: soft, distended, non-tender, present bowel sounds Extremities: other Laboratory Tests Test 07/03/18 06:15 07/03/18 13:45 White Blood Count 9.9 K/UL (4.8-10.8) 10.6 K/UL (4.8-10.8) Red Blood Count 3.07 M/UL (4.20-5.40) L 3.08 M/UL (4.20-5.40) L Hemoglobin 10.0 G/DL (12.0-16.0) L 10.0 G/DL (12.0-16.0) L Hematocrit 30.1 % (37.0-47.0) L 30.1 % (37.0-47.0) L Mean Corpuscular Volume 98 FL (80-99) 98 FL (80-99) Mean Corpuscular Hemoglobin 32.6 PG (27.0-31.0) H 32.6 PG (27.0-31.0) H Mean Corpuscular Hemoglobin Concent 33.2 G/DL (32.0-36.0) 33.3 G/DL (32.0-36.0) Red Cell Distribution Width 14.0 % (11.6-14.8) 13.4 % (11.6-14.8) Platelet Count 128 K/UL (150-450) L 121 K/UL (150-450) L Mean Platelet Volume 6.1 FL (6.5-10.1) L 5.2 FL (6.5-10.1) L Neutrophils (%) (Auto) 83.5 % (45.0-75.0) H 83.7 % (45.0-75.0) H Lymphocytes (%) (Auto) 4.0 % (20.0-45.0) L 3.8 % (20.0-45.0) L Monocytes (%) (Auto) 11.7 % (1.0-10.0) H 11.4 % (1.0-10.0) H Eosinophils (%) (Auto) 0.3 % (0.0-3.0) 0.1 % (0.0-3.0) Basophils (%) (Auto) 0.6 % (0.0-2.0) 1.0 % (0.0-2.0) Sodium Level 129 MMOL/L (136-145) L 128 MMOL/L (136-145) L Potassium Level 4.7 MMOL/L (3.5-5.1) 4.9 MMOL/L (3.5-5.1) Chloride Level 95 MMOL/L (98-107) L 96 MMOL/L (98-107) L Carbon Dioxide Level 19 MMOL/L (21-32) L 21 MMOL/L (21-32) Anion Gap 15 mmol/L (5-15) 11 mmol/L (5-15) Blood Urea Nitrogen 116 mg/dL (7-18) H 124 mg/dL (7-18) H Creatinine 4.4 MG/DL (0.55-1.30) H 4.6 MG/DL (0.55-1.30) H Estimat Glomerular Filtration Rate mL/min (>60) mL/min (>60) Glucose Level 166 MG/DL (74-106) H 178 MG/DL (74-106) H Calcium Level 8.5 MG/DL (8.5-10.1) 8.6 MG/DL (8.5-10.1) Phosphorus Level 3.6 MG/DL (2.5-4.9) 3.9 MG/DL (2.5-4.9) Magnesium Level 2.4 MG/DL (1.8-2.4) Plan Problems: (1) Stage 4 decubitus ulcer Assessment & Plan: Stage IV sacral decubitus ulcer in center of dark non- blanchable erythema with induration to sacrum (L)10.5cm x(W)12cm. full thickness wound at coccyx (L)1.5cm x 1.2cm x(D)1.5cm .Bone is palpable Medial L heel non-blanchable ,fluctuant with small maroon discoloration within borders. R heel boggy-red but slow to ekta. Plan: Cleanse wound with saline. Apply Hydrogel into wound.Swab non-blanchable areas with Cavilon wipe and cover with Large Biatain drsg Daily and prn. Please upgrade to P200 Air Fluidized mattress. Cavilon wipes to both heels and continue to off-load. (2) Fecal impaction Assessment & Plan: KUB reviewed. stable. no signs of large or small bowel obstruction. stool in colon / rectum having bm's. diet as tolerated via feeds no acute surgical intervention necessary stool softener okay to d/c from surgical standpoint Justice Rajan Jul 03, 2018 15:13
--- NOTE | 2018-07-03 15:43 | Nephrology Progress Note ---
Assessment/Plan Plan ESRD - HD today pending. CHF - stable. Fecal impaction -per GI. Rt. newly diagnosed Renal Cell CA - Per no surgical intervention. Patient too high risk Has positive blood cultures 2/4 GPC. ID consult called Subjective Subjective Alert. No c/o. Confused. Objective Objective Last 24 Hour Vital Signs Date Time Temp Pulse Resp B/P (MAP) Pulse Ox O2 Delivery O2 Flow Rate FiO2 07/03/18 12:00 97.1 84 20 152/66 (94) 97 97.1 07/03/18 09:30 147/68 07/03/18 09:00 Room Air 07/03/18 08:24 72 18 Room Air 21 07/03/18 08:00 98.6 73 20 147/68 (94) 97 98.6 07/03/18 04:00 98.6 88 20 115/68 (84) 97 98.6 07/03/18 00:00 98.1 81 18 151/62 (91) 98 98.1 07/02/18 21:00 Room Air 07/02/18 20:00 98.8 73 18 137/50 (79) 97 98.8 07/02/18 19:52 78 18 Room Air 21 07/02/18 18:54 137/53 07/02/18 16:00 73 07/02/18 16:00 98.6 77 19 137/53 (81) 98 98.6 Intake and Output 07/02/18 07/03/18 19:00 07:00 Intake Total 610 ml Balance 610 ml Free Water 260 ml Tube Feeding 350 ml # Voids 1 1 # Bowel Movements 2 1 Laboratory Tests 07/03/18 06:15: White Blood Count 9.9, Red Blood Count 3.07L, Hemoglobin 10.0L, Hematocrit 30.1L , Mean Corpuscular Volume 98, Mean Corpuscular Hemoglobin 32.6H, Mean Corpuscular Hemoglobin Concent 33.2, Red Cell Distribution Width 14.0, Platelet Count 128L, Mean Platelet Volume 6.1L, Neutrophils (%) (Auto) 83.5H, Lymphocytes (%) (Auto) 4.0L, Monocytes (%) (Auto) 11.7H, Eosinophils (%) (Auto) 0.3, Basophils (%) (Auto) 0.6, Sodium Level 129L, Potassium Level 4.7, Chloride Level 95L, Carbon Dioxide Level 19L, Anion Gap 15, Blood Urea Nitrogen 116H, Creatinine 4.4H, Estimat Glomerular Filtration Rate , Glucose Level 166H, Calcium Level 8.5, Phosphorus Level 3.6, Magnesium Level 2.4 07/03/18 13:45: White Blood Count 10.6, Red Blood Count 3.08L, Hemoglobin 10.0L, Hematocrit 30.1L, Mean Corpuscular Volume 98, Mean Corpuscular Hemoglobin 32.6H, Mean Corpuscular Hemoglobin Concent 33.3, Red Cell Distribution Width 13.4, Platelet Count 121L, Mean Platelet Volume 5.2L, Neutrophils (%) (Auto) 83.7H, Lymphocytes (%) (Auto) 3.8L, Monocytes (%) (Auto) 11.4H, Eosinophils (%) (Auto) 0.1, Basophils (%) (Auto) 1.0, Sodium Level 128L, Potassium Level 4.9, Chloride Level 96L, Carbon Dioxide Level 21, Anion Gap 11, Blood Urea Nitrogen 124H, Creatinine 4.6H, Estimat Glomerular Filtration Rate , Glucose Level 178H, Calcium Level 8.6, Phosphorus Level 3.9 Height (Feet): 5 Height (Inches): 4.00 Weight (Pounds): 152 Objective CV RR Lungs CTA Abd SNT. BS +. PEG OK. E No CCE. GIANNI AVF + bruit. Raul Cannon MD Jul 03, 2018 15:43
[2018-07-03 16:00] VITALS: BP 115/66
--- NOTE | 2018-07-03 18:40 | Infectious Diseases Prog Note ---
Assessment/Plan Assessment/Plan Full consult dictated: possible gram + bacteremia vs contamination ? sepsis sacral wound, ? infected with cellulitis esrd, hd shunt pmh noted echo ordered start vancomycin f/u on blood cultures thank you Subjective Allergies: Coded Allergies: No Known Allergies (Unverified , 05/11/18) Objective Vital Signs Last 24 Hour Vital Signs Date Time Temp Pulse Resp B/P (MAP) Pulse Ox O2 Delivery O2 Flow Rate FiO2 07/03/18 16:00 98.2 88 20 115/66 (82) 97 98.2 07/03/18 12:00 97.1 84 20 152/66 (94) 97 97.1 07/03/18 09:30 147/68 07/03/18 09:00 Room Air 07/03/18 08:24 72 18 Room Air 21 07/03/18 08:00 98.6 73 20 147/68 (94) 97 98.6 07/03/18 04:00 98.6 88 20 115/68 (84) 97 98.6 07/03/18 00:00 98.1 81 18 151/62 (91) 98 98.1 07/02/18 21:00 Room Air 07/02/18 20:00 98.8 73 18 137/50 (79) 97 98.8 07/02/18 19:52 78 18 Room Air 21 07/02/18 18:54 137/53 Height (Feet): 5 Height (Inches): 4.00 Weight (Pounds): 152 Microbiology Date/Time Source Procedure Growth Status 07/01/18 16:00 Nasal Nares MRSA Culture - Final NO METHICILLIN RESISTANT STAPH AUREUS... Complete 07/01/18 16:00 Rectum VRE Culture - Final Enterococcus Faecalis - Vre Complete 07/01/18 16:00 Rectum - Final NO CARBAPENEM-RESISTANT ENTEROBACTERI... Complete Laboratory Tests Test 07/03/18 06:15 07/03/18 13:45 White Blood Count 9.9 K/UL (4.8-10.8) 10.6 K/UL (4.8-10.8) Red Blood Count 3.07 M/UL (4.20-5.40) L 3.08 M/UL (4.20-5.40) L Hemoglobin 10.0 G/DL (12.0-16.0) L 10.0 G/DL (12.0-16.0) L Hematocrit 30.1 % (37.0-47.0) L 30.1 % (37.0-47.0) L Mean Corpuscular Volume 98 FL (80-99) 98 FL (80-99) Mean Corpuscular Hemoglobin 32.6 PG (27.0-31.0) H 32.6 PG (27.0-31.0) H Mean Corpuscular Hemoglobin Concent 33.2 G/DL (32.0-36.0) 33.3 G/DL (32.0-36.0) Red Cell Distribution Width 14.0 % (11.6-14.8) 13.4 % (11.6-14.8) Platelet Count 128 K/UL (150-450) L 121 K/UL (150-450) L Mean Platelet Volume 6.1 FL (6.5-10.1) L 5.2 FL (6.5-10.1) L Neutrophils (%) (Auto) 83.5 % (45.0-75.0) H 83.7 % (45.0-75.0) H Lymphocytes (%) (Auto) 4.0 % (20.0-45.0) L 3.8 % (20.0-45.0) L Monocytes (%) (Auto) 11.7 % (1.0-10.0) H 11.4 % (1.0-10.0) H Eosinophils (%) (Auto) 0.3 % (0.0-3.0) 0.1 % (0.0-3.0) Basophils (%) (Auto) 0.6 % (0.0-2.0) 1.0 % (0.0-2.0) Sodium Level 129 MMOL/L (136-145) L 128 MMOL/L (136-145) L Potassium Level 4.7 MMOL/L (3.5-5.1) 4.9 MMOL/L (3.5-5.1) Chloride Level 95 MMOL/L (98-107) L 96 MMOL/L (98-107) L Carbon Dioxide Level 19 MMOL/L (21-32) L 21 MMOL/L (21-32) Anion Gap 15 mmol/L (5-15) 11 mmol/L (5-15) Blood Urea Nitrogen 116 mg/dL (7-18) H 124 mg/dL (7-18) H Creatinine 4.4 MG/DL (0.55-1.30) H 4.6 MG/DL (0.55-1.30) H Estimat Glomerular Filtration Rate mL/min (>60) mL/min (>60) Glucose Level 166 MG/DL (74-106) H 178 MG/DL (74-106) H Calcium Level 8.5 MG/DL (8.5-10.1) 8.6 MG/DL (8.5-10.1) Phosphorus Level 3.6 MG/DL (2.5-4.9) 3.9 MG/DL (2.5-4.9) Magnesium Level 2.4 MG/DL (1.8-2.4) Current Medications Medications (Trade) Dose Ordered Sig/Konrad Route PRN Reason Start Time Stop Time Status Last Admin Dose Admin Acetaminophen (Tylenol) 650 mg Q4H PRN RECTAL fever 07/02/18 21:45 08/01/18 21:44 Albuterol/ Ipratropium (Albuterol/ Ipratropium) 3 ml Q6H PRN HHN Shortness of Breath 07/02/18 21:45 07/07/18 21:44 Dextrose (Dextrose 50%) 25 ml Q30M PRN IV Hypoglycemia 07/02/18 21:45 07/30/18 12:14 Dextrose (Dextrose 50%) 50 ml Q30M PRN IV Hypoglycemia 07/02/18 21:45 07/30/18 12:14 Heparin Sodium (Porcine) (Heparin Sod 1000 units/ml 10ml) 2,000 unit ONCE IV 07/03/18 13:45 07/03/18 23:59 Metoclopramide HCl (Reglan) 10 mg Q6H PRN IVP Nausea & Vomiting 07/02/18 21:45 08/01/18 21:44 Mineral Oil (Mineral Oil) 30 ml DAILY GT 07/03/18 09:00 07/30/18 16:59 07/03/18 09:29 Minoxidil (Loniten) 5 mg BID GT 07/03/18 09:00 07/30/18 17:59 07/03/18 09:30 Ondansetron HCl (Zofran) 4 mg Q6H PRN IVP Nausea & Vomiting 07/02/18 21:45 08/01/18 21:44 Pantoprazole (Protonix) 40 mg DAILY IV 07/03/18 09:00 07/31/18 08:59 07/03/18 09:29 Polyethylene Glycol (Miralax) 17 gm BEDTIME GT 07/02/18 21:00 08/01/18 20:59 07/02/18 22:03 Sodium Chloride 1,000 ml @ 500 mls/hr Q2H PRN IVLG sbp<90 during hd 07/03/18 13:31 08/02/18 13:30 Rebecca Preston MD Jul 03, 2018 18:40
[2018-07-03 20:00] VITALS: BP 142/100
[2018-07-03] MEDS ORDERED: Vancomycin 1250mg/D5W 250ml IVPB SCH (20:00)
[2018-07-03] MEDS: Miralax 17gm pkt GT SCH (21:00)
[2018-07-04] VITALS: BP 140/65
--- NOTE | 2018-07-04 00:30 | Consultation ---
DATE OF CONSULTATION: 07/03/2018 CONSULTING PHYSICIAN: Rebecca Preston M.D. ATTENDING PHYSICIAN: Raul Cannon M.D. REFERRING PHYSICIAN: Raul Cannon M.D. REASON FOR CONSULTATION: Possible gram-positive bacteremia, possible sepsis. CHIEF COMPLAINT: The patient's chief complaint coming in to the hospital is aspiration and vomiting. HISTORY OF PRESENT ILLNESS: This is a 72-year-old female, who comes in to [facility] with aspiration and vomiting. The patient had a CT scan of the abdomen which showed no evidence of abscess and no evidence of small-bowel obstruction. It did show mildly thick-walled proximal small-bowel loops, anasarca, and also 2.5-cm right lower renal mass very concerning for renal malignancy. The patient's blood cultures are growing out gram-positive organisms, 2 out of 4, identification is pending. The patient has end-stage renal disease, on hemodialysis, but no line. She is using a shunt. Echo has been ordered. Infectious Disease consultation is requested because of the possibility of sepsis with gram-positive bacteremia. The patient has a sacral wound stage IV with some erythema around it, unclear if this is infected wound or cellulitis. The patient is being followed by Surgery. No surgical intervention at this time. The patient was started on vancomycin. MAR was noted. Orders were noted. Notes were reviewed. The patient could not give any further history. REVIEW OF SYSTEMS: CONSTITUTIONAL: The patient has generalized fatigue and weakness. She has currently no fevers. HEAD AND NECK: No head pain or neck pain. She is responsive, opens eyes. CARDIAC: No chest pain or pressors. GASTROINTESTINAL: No nausea, vomiting, or diarrhea. GENITOURINARY: She has no Mckenzie. She is on hemodialysis. PULMONARY: She came in with nausea and vomiting, but no shortness of breath, cough, or congestion. GASTROINTESTINAL: She has no nausea, vomiting, or diarrhea currently, but she did come in with nausea and vomiting. SKIN: No rash or itching. EXTREMITIES: No extremity pain. NEUROLOGIC: No seizures. She has generalized fatigue and weakness. SKIN: She does have a sacral wound. GENITOURINARY: No Mckenzie. She is a hemodialysis patient. Review of systems otherwise is limited in this patient. PAST MEDICAL HISTORY: The patient has past medical history of end-stage renal disease, on hemodialysis. She has history of shunt. She has history of diabetic nephropathy. She has history of type 2 diabetes mellitus. She has history of schizophrenia, history of CHF, history of COPD, history of hypothyroidism, history of sick sinus syndrome. She has anemia. She has history of hypertension, dysphagia, and history of organic brain syndrome. ALLERGIES: No known drug allergies. No antibiotic allergies. SOCIAL HISTORY: Currently, negative for smoking, alcohol, or drug abuse. FAMILY HISTORY: Noncontributory. No mention of exposure to tuberculosis or cancer. MEDICATIONS: Upon reviewing the MAR, she is on the following medications. She had been given IV fluids, heparin, sodium chloride, minoxidil, pantoprazole, acetaminophen, albuterol, metoclopramide, Zofran, polyethylene. Outside medications noted and reconciliated. I have started vancomycin on the patient. PHYSICAL EXAMINATION: VITAL SIGNS: Temperature 98.2, pulse rate is 88, respiratory rate is 20, blood pressure 115/66, and saturation is 97%. GENERAL: Alert, responsive, in no acute distress, nonverbal. HEAD AND NECK: Oral exam, no thrush. Eye exam, no icterus. No JVD. Normocephalic. No neck stiffness. Neck is supple. HEART: Regular. No gallop or murmur. No friction rub. ABDOMEN: Soft. Positive bowel sounds. Nontender. LUNGS: Few bilateral rhonchi. Negative for rales. Decreased breath sounds at the bases. SKIN: No rash. She does have sacral wound and may be some mild erythema around it, stage IV. No pussy drainage or odor. MUSCULOSKELETAL: No effusion. Legs are without cellulitis. She looks like she has contractures. PERIPHERAL VASCULAR: No cyanosis or gangrene. GENITOURINARY: No Mckenzie. She has a shunt. LINE SITES: Without phlebitis. NEUROLOGIC: Generalized weakness. Responsive. Opens eyes. Nonverbal. LABORATORY DATA: Laboratory data as follows. The patient's sodium is 128. The patient's white count 10.6, hemoglobin 10.0. Creatinine 4.6. Cultures, blood cultures had 2 out of 4 gram-positive cocci in clusters, identification is pending. VRE screen is positive. Chest x-ray showed interstitial congestion. We will get followup chest x-ray. CT scan of the abdomen and pelvis was reviewed and noted, no abscess mentioned, no bowel obstruction, report was noted. Please see HPI. ASSESSMENT AND PLAN: 1. The patient has possible gram-positive bacteremia and sepsis. Source is unclear if it is bacteremia. The patient certainly could have a wound source versus endocarditis versus shunt infection. At this time, we will start vancomycin for gram-positive bacteremia coverage pending identification of blood cultures. Recheck blood cultures also. Continue vancomycin. Check echo. Continue wound care per Surgery. No surgical intervention at this time. Depending on what the gram-positive cocci are, we will consider further evaluation such as a shunt infection. Followup of blood cultures, laboratories, and echo. Continue vancomycin for possible gram-positive bacteremia and sepsis. 2. The patient has stage IV sacral wound, possible cellulitis and infected wound. Wound care per Surgery. It does not look acutely infected and no surgical intervention at this time. The patient is on vancomycin. 3. Possible sepsis with gram-positive bacteremia. 4. End-stage renal disease, on hemodialysis and shunt. 5. Diabetes. 6. Hypertension. 7. Blood sugar and blood pressure treatment per primary. 8. Anemia. 9. Organic brain syndrome. 10. Wound care per protocol. 11. Schizophrenia. 12. CHF. 13. COPD. 14. Hypothyroidism. 15. Sick sinus syndrome. 16. Diabetic nephropathy. 17. End-stage renal disease, on hemodialysis. 18. Allergies are negative. 19. Social history negative. 20. Family history noncontributory. 21. MAR was noted. 22. Case discussed with RN. 23. Continue treatment per primary consultants. 24. Case was also discussed with Dr. Cannon earlier today. Radha Robb JOB#: [id number] CC:
[2018-07-04 04:00] VITALS: BP 155/64
[2018-07-04 08:00] VITALS: BP 119/70
[2018-07-04 08:28] LABS: BASOPHILS % (AUTO) 0.9 % (0.0-2.0); EOSINOPHILS % (AUTO) 0.6 % (0.0-3.0); HEMATOCRIT 29.5 % (37.0-47.0); HEMOGLOBIN 9.7 G/DL (12.0-16.0); LYMPHOCYTES % (AUTO) 2.7 % (20.0-45.0); MEAN CORPUSCULAR VOLUME 99 FL (80-99); MONOCYTES % (AUTO) 12.9 % (1.0-10.0); NEUTROPHILS % (AUTO) 82.8 % (45.0-75.0); PLATELET COUNT 133 K/UL (150-450); RED BLOOD COUNT 2.99 M/UL (4.20-5.40); WHITE BLOOD COUNT 8.5 K/UL (4.8-10.8)
[2018-07-04 08:44] LABS: ANION GAP 10 mmol/L (5-15); BLOOD UREA NITROGEN 78 mg/dL (7-18); CALCIUM 8.5 MG/DL (8.5-10.1); CARBON DIOXIDE 23 MMOL/L (21-32); CHLORIDE 99 MMOL/L (98-107); CREATININE 3.4 MG/DL (0.55-1.30); POTASSIUM 4.6 MMOL/L (3.5-5.1); SODIUM 132 MMOL/L (136-145)
[2018-07-04] MEDS: Pantoprazole Inj IV SCH (09:16)
[2018-07-04] MEDS: Mineral Oil 30ml ud GT SCH (09:16)
[2018-07-04] MEDS: Minoxidil 2.5mg tab GT SCH ×3 (09:22→17:27)
--- NOTE | 2018-07-04 11:01 | Nephrology Progress Note ---
Assessment/Plan Plan ESRD - HD tomorrow. CHF - stable. Fecal impaction -resolved. Rt. newly diagnosed Renal Cell CA - Per no surgical intervention. Patient too high risk Has positive blood cultures 2/ Staph. epi. Contaminant? 2D Echo no veg. Subjective Subjective Alert. No c/o. Confused. Objective Objective Last 24 Hour Vital Signs Date Time Temp Pulse Resp B/P (MAP) Pulse Ox O2 Delivery O2 Flow Rate FiO2 07/04/18 09:24 119/70 07/04/18 08:36 74 18 Room Air 21 07/04/18 08:30 Room Air 07/04/18 08:00 99.3 70 19 119/70 (86) 97 99.3 07/04/18 04:00 98.8 73 20 155/64 (94) 99 98.8 07/04/18 00:00 98.1 72 20 140/65 (90) 96 98.1 07/03/18 22:30 97.5 97.5 07/03/18 22:16 Room Air 07/03/18 21:00 Room Air 07/03/18 20:23 Room Air 07/03/18 20:00 100.3 88 20 142/100 (114) 100 100.3 07/03/18 16:00 98.2 88 20 115/66 (82) 97 98.2 07/03/18 12:00 97.1 84 20 152/66 (94) 97 97.1 Intake and Output 07/03/18 07/04/18 19:00 07:00 Intake Total 485 ml 250 ml Output Total 0 ml Balance 485 ml 250 ml Free Water 0 ml IV Total 250 ml Tube Feeding 385 ml Blood Product 100 ml Output Urine Total 0 ml # Bowel Movements 2 Laboratory Tests 07/03/18 13:45: White Blood Count 10.6, Red Blood Count 3.08L, Hemoglobin 10.0L, Hematocrit 30.1L, Mean Corpuscular Volume 98, Mean Corpuscular Hemoglobin 32.6H, Mean Corpuscular Hemoglobin Concent 33.3, Red Cell Distribution Width 13.4, Platelet Count 121L, Mean Platelet Volume 5.2L, Neutrophils (%) (Auto) 83.7H, Lymphocytes (%) (Auto) 3.8L, Monocytes (%) (Auto) 11.4H, Eosinophils (%) (Auto) 0.1, Basophils (%) (Auto) 1.0, Sodium Level 128L, Potassium Level 4.9, Chloride Level 96L, Carbon Dioxide Level 21, Anion Gap 11, Blood Urea Nitrogen 124H, Creatinine 4.6H, Estimat Glomerular Filtration Rate , Glucose Level 178H, Calcium Level 8.6, Phosphorus Level 3.9 07/04/18 06:30: White Blood Count 8.5, Red Blood Count 2.99L, Hemoglobin 9.7L, Hematocrit 29.5L , Mean Corpuscular Volume 99, Mean Corpuscular Hemoglobin 32.4H, Mean Corpuscular Hemoglobin Concent 32.8, Red Cell Distribution Width 14.0, Platelet Count 133L, Mean Platelet Volume 6.1L, Neutrophils (%) (Auto) 82.8H, Lymphocytes (%) (Auto) 2.7L, Monocytes (%) (Auto) 12.9H, Eosinophils (%) (Auto) 0.6, Basophils (%) (Auto) 0.9, Sodium Level 132L, Potassium Level 4.6, Chloride Level 99, Carbon Dioxide Level 23, Anion Gap 10, Blood Urea Nitrogen 78H, Creatinine 3.4H, Estimat Glomerular Filtration Rate , Glucose Level 148H, Calcium Level 8.5 Height (Feet): 5 Height (Inches): 4.00 Weight (Pounds): 152 Objective CV RR Lungs CTA Abd SNT. BS +. PEG OK. E No CCE. GIANNI AVF + bruit. Raul Cannon MD Jul 04, 2018 11:01
[2018-07-04 12:00] VITALS: BP 133/51
--- NOTE | 2018-07-04 12:29 | GI Progress Note ---
Assessment/Plan Problems: (1) Gastrostomy tube dependent ICD Codes: Z93.1 - Gastrostomy status SNOMED: 783376216, 915683083 (2) Vomiting ICD Codes: R11.10 - Vomiting, unspecified SNOMED: 487617421 (3) Fecal impaction ICD Codes: K56.41 - Fecal impaction SNOMED: 12447721 (4) Hematemesis ICD Codes: K92.0 - Hematemesis SNOMED: 5434096 Status: doing well, stable Status Narrative Discussed with Dr. Taylor. Assessment/Plan CT AP reviewed >> severe fecal impaction, resolved. intractable N/V, resolved. no anemia okay for DC per GI standpoint GTFs per RD to goal, tolerating bowel regime electrolyte correction ppi fu labs The patient was seen and examined at bedside and all new and available data was reviewed in the patients chart. I agree with the above findings, impression and plan. (Patient seen earlier today. Signature stamp does not reflect patient encounter time.). - Hilton Taylor MD Subjective Subjective limited Objective Last 24 Hour Vital Signs Date Time Temp Pulse Resp B/P (MAP) Pulse Ox O2 Delivery O2 Flow Rate FiO2 07/04/18 12:00 97.3 71 19 133/51 (78) 96 97.3 07/04/18 09:24 119/70 07/04/18 08:36 74 18 Room Air 21 07/04/18 08:30 Room Air 07/04/18 08:00 99.3 70 19 119/70 (86) 97 99.3 07/04/18 04:00 98.8 73 20 155/64 (94) 99 98.8 07/04/18 00:00 98.1 72 20 140/65 (90) 96 98.1 07/03/18 22:30 97.5 97.5 07/03/18 22:16 Room Air 07/03/18 21:00 Room Air 07/03/18 20:23 Room Air 07/03/18 20:00 100.3 88 20 142/100 (114) 100 100.3 07/03/18 16:00 98.2 88 20 115/66 (82) 97 98.2 Intake and Output 07/03/18 07/04/18 19:00 07:00 Intake Total 485 ml 250 ml Output Total 0 ml Balance 485 ml 250 ml Free Water 0 ml IV Total 250 ml Tube Feeding 385 ml Blood Product 100 ml Output Urine Total 0 ml # Bowel Movements 2 Laboratory Tests Test 07/03/18 13:45 07/04/18 06:30 White Blood Count 10.6 K/UL (4.8-10.8) 8.5 K/UL (4.8-10.8) Red Blood Count 3.08 M/UL (4.20-5.40) L 2.99 M/UL (4.20-5.40) L Hemoglobin 10.0 G/DL (12.0-16.0) L 9.7 G/DL (12.0-16.0) L Hematocrit 30.1 % (37.0-47.0) L 29.5 % (37.0-47.0) L Mean Corpuscular Volume 98 FL (80-99) 99 FL (80-99) Mean Corpuscular Hemoglobin 32.6 PG (27.0-31.0) H 32.4 PG (27.0-31.0) H Mean Corpuscular Hemoglobin Concent 33.3 G/DL (32.0-36.0) 32.8 G/DL (32.0-36.0) Red Cell Distribution Width 13.4 % (11.6-14.8) 14.0 % (11.6-14.8) Platelet Count 121 K/UL (150-450) L 133 K/UL (150-450) L Mean Platelet Volume 5.2 FL (6.5-10.1) L 6.1 FL (6.5-10.1) L Neutrophils (%) (Auto) 83.7 % (45.0-75.0) H 82.8 % (45.0-75.0) H Lymphocytes (%) (Auto) 3.8 % (20.0-45.0) L 2.7 % (20.0-45.0) L Monocytes (%) (Auto) 11.4 % (1.0-10.0) H 12.9 % (1.0-10.0) H Eosinophils (%) (Auto) 0.1 % (0.0-3.0) 0.6 % (0.0-3.0) Basophils (%) (Auto) 1.0 % (0.0-2.0) 0.9 % (0.0-2.0) Sodium Level 128 MMOL/L (136-145) L 132 MMOL/L (136-145) L Potassium Level 4.9 MMOL/L (3.5-5.1) 4.6 MMOL/L (3.5-5.1) Chloride Level 96 MMOL/L (98-107) L 99 MMOL/L (98-107) Carbon Dioxide Level 21 MMOL/L (21-32) 23 MMOL/L (21-32) Anion Gap 11 mmol/L (5-15) 10 mmol/L (5-15) Blood Urea Nitrogen 124 mg/dL (7-18) H 78 mg/dL (7-18) H Creatinine 4.6 MG/DL (0.55-1.30) H 3.4 MG/DL (0.55-1.30) H Estimat Glomerular Filtration Rate mL/min (>60) mL/min (>60) Glucose Level 178 MG/DL (74-106) H 148 MG/DL (74-106) H Calcium Level 8.6 MG/DL (8.5-10.1) 8.5 MG/DL (8.5-10.1) Phosphorus Level 3.9 MG/DL (2.5-4.9) Height (Feet): 5 Height (Inches): 4.00 Weight (Pounds): 152 General Appearance: WD/WN, no apparent distress, alert, thin Cardiovascular: normal rate Respiratory/Chest: normal breath sounds, no respiratory distress Abdominal Exam: normal bowel sounds, non tender, soft Extremities: non-tender Janene Ellis [employer] Jul 04, 2018 12:29
--- NOTE | 2018-07-04 15:20 | General Progress Note ---
Assessment/Plan Assessment/Plan # Thrombocytopenia -- medication, infection or liver related, noted to have SPLENOMEGALY, also with sepsis and positive blood cultures on abx as per id --> hepatitis negative and hiv is pending --> CT of the a/p reviewed and shows SPLENOMEGALY --> slowly downtrending, transfuse if plt <20k --> ID recs appreciated # 2.5 centimeter right renal mass -- renal function is poor to begin with and she is elderly and debilitated with multiple medical issues. per uro recommends close surveillance of the mass to begin with. --> agree with urology recommendations for surveillance and q6-12mo imaging and if larger act at that time --> no hydronephrosis is noted --> would not recommend tumor markers at this time --> no further imaging indicated # Anemia of chronic disease -- anemia panel has been reviewed --> no evidence of hemolysis is noted --> hgb goal >7 # FTT - s/p gtube insertion --> peg tube feeds --> properly functioning # Diabetes # Coronary artery disease # Organic brain syndrome. She presents to the hospital with nausea and vomiting which is intractable. # Fecal impaction on CT scan. Greatly appreciate consultation! Subjective Constitutional: Denies: no symptoms, chills, diaphoresis, fever, malaise, weakness, other HEENT: Denies: no symptoms, eye pain, blurred vision, tearing, double vision, ear pain, ear discharge, nose pain, nose congestion, throat pain, throat swelling, mouth pain, mouth swelling, other Cardiovascular: Denies: no symptoms, chest pain, edema, irregular heart rate, lightheadedness, palpitations, syncope, other Respiratory: Denies: no symptoms, cough, orthopnea, shortness of breath, SOB with excertion, SOB at rest, sputum, stridor, wheezing, other Gastrointestinal/Abdominal: Denies: no symptoms, abdomen distended, abdominal pain, black stools, tarry stools, blood in stool, constipated, diarrhea, difficulty swallowing, nausea, poor appetite, poor fluid intake, rectal bleeding , vomiting, other Genitourinary: Denies: no symptoms, burning, discharge, frequency, flank pain, hematuria, incontinence, pain, urgency, other Neurologic/Psychiatric: Denies: no symptoms, anxiety, depressed, emotional problems, headache, numbness, paresthesia, pre-existing deficit, seizure, tingling, tremors, weakness, other Endocrine: Denies: no symptoms, excessive sweating, flushing, intolerance to cold, intolerance to heat, increased hunger, increased thirst, increased urine, unexplained weight gain, unexplained weight loss, other Allergies: Coded Allergies: No Known Allergies (Unverified , 05/11/18) Subjective no events, no f/c, avf in place, feeling better Objective Last 24 Hour Vital Signs Date Time Temp Pulse Resp B/P (MAP) Pulse Ox O2 Delivery O2 Flow Rate FiO2 07/04/18 12:00 97.3 71 19 133/51 (78) 96 97.3 07/04/18 09:24 119/70 07/04/18 08:36 74 18 Room Air 21 07/04/18 08:30 Room Air 07/04/18 08:00 99.3 70 19 119/70 (86) 97 99.3 07/04/18 04:00 98.8 73 20 155/64 (94) 99 98.8 07/04/18 00:00 98.1 72 20 140/65 (90) 96 98.1 07/03/18 22:30 97.5 97.5 07/03/18 22:16 Room Air 07/03/18 21:00 Room Air 07/03/18 20:23 Room Air 07/03/18 20:00 100.3 88 20 142/100 (114) 100 100.3 07/03/18 16:00 98.2 88 20 115/66 (82) 97 98.2 Intake and Output 07/03/18 07/04/18 19:00 07:00 Intake Total 485 ml 250 ml Output Total 0 ml Balance 485 ml 250 ml Free Water 0 ml IV Total 250 ml Tube Feeding 385 ml Blood Product 100 ml Output Urine Total 0 ml # Bowel Movements 2 Laboratory Tests 07/04/18 06:30: White Blood Count 8.5, Red Blood Count 2.99L, Hemoglobin 9.7L, Hematocrit 29.5L , Mean Corpuscular Volume 99, Mean Corpuscular Hemoglobin 32.4H, Mean Corpuscular Hemoglobin Concent 32.8, Red Cell Distribution Width 14.0, Platelet Count 133L, Mean Platelet Volume 6.1L, Neutrophils (%) (Auto) 82.8H, Lymphocytes (%) (Auto) 2.7L, Monocytes (%) (Auto) 12.9H, Eosinophils (%) (Auto) 0.6, Basophils (%) (Auto) 0.9, Sodium Level 132L, Potassium Level 4.6, Chloride Level 99, Carbon Dioxide Level 23, Anion Gap 10, Blood Urea Nitrogen 78H, Creatinine 3.4H, Estimat Glomerular Filtration Rate , Glucose Level 148H, Calcium Level 8.5 Height (Feet): 5 Height (Inches): 4.00 Weight (Pounds): 152 General Appearance: no apparent distress EENT: normal ENT inspection Neck: supple Cardiovascular: regular rhythm Respiratory/Chest: normal breath sounds Abdomen: soft Extremities: non-tender Edema: 1+ Leg (L), 1+ Leg (R) Neurologic: alert Skin: warm/dry Blayne Carroll MD Jul 04, 2018 15:20
--- NOTE | 2018-07-04 15:58 | General Surgery Progress Note ---
General Surgery-Progress Note Subjective Additional Comments no acute events. Objective Last 24 Hour Vital Signs Date Time Temp Pulse Resp B/P (MAP) Pulse Ox O2 Delivery O2 Flow Rate FiO2 07/04/18 12:00 97.3 71 19 133/51 (78) 96 97.3 07/04/18 09:24 119/70 07/04/18 08:36 74 18 Room Air 21 07/04/18 08:30 Room Air 07/04/18 08:00 99.3 70 19 119/70 (86) 97 99.3 07/04/18 04:00 98.8 73 20 155/64 (94) 99 98.8 07/04/18 00:00 98.1 72 20 140/65 (90) 96 98.1 07/03/18 22:30 97.5 97.5 07/03/18 22:16 Room Air 07/03/18 21:00 Room Air 07/03/18 20:23 Room Air 07/03/18 20:00 100.3 88 20 142/100 (114) 100 100.3 07/03/18 16:00 98.2 88 20 115/66 (82) 97 98.2 I&O Intake and Output 07/03/18 07/04/18 19:00 07:00 Intake Total 485 ml 250 ml Output Total 0 ml Balance 485 ml 250 ml Free Water 0 ml IV Total 250 ml Tube Feeding 385 ml Blood Product 100 ml Output Urine Total 0 ml # Bowel Movements 2 Dressing: other Wound: clean Drains: other Cardiovascular: RSR Respiratory: clear Abdomen: soft, non-tender, present bowel sounds Extremities: other Laboratory Tests Test 07/04/18 06:30 White Blood Count 8.5 K/UL (4.8-10.8) Red Blood Count 2.99 M/UL (4.20-5.40) L Hemoglobin 9.7 G/DL (12.0-16.0) L Hematocrit 29.5 % (37.0-47.0) L Mean Corpuscular Volume 99 FL (80-99) Mean Corpuscular Hemoglobin 32.4 PG (27.0-31.0) H Mean Corpuscular Hemoglobin Concent 32.8 G/DL (32.0-36.0) Red Cell Distribution Width 14.0 % (11.6-14.8) Platelet Count 133 K/UL (150-450) L Mean Platelet Volume 6.1 FL (6.5-10.1) L Neutrophils (%) (Auto) 82.8 % (45.0-75.0) H Lymphocytes (%) (Auto) 2.7 % (20.0-45.0) L Monocytes (%) (Auto) 12.9 % (1.0-10.0) H Eosinophils (%) (Auto) 0.6 % (0.0-3.0) Basophils (%) (Auto) 0.9 % (0.0-2.0) Sodium Level 132 MMOL/L (136-145) L Potassium Level 4.6 MMOL/L (3.5-5.1) Chloride Level 99 MMOL/L (98-107) Carbon Dioxide Level 23 MMOL/L (21-32) Anion Gap 10 mmol/L (5-15) Blood Urea Nitrogen 78 mg/dL (7-18) H Creatinine 3.4 MG/DL (0.55-1.30) H Estimat Glomerular Filtration Rate mL/min (>60) Glucose Level 148 MG/DL (74-106) H Calcium Level 8.5 MG/DL (8.5-10.1) Plan Problems: (1) Stage 4 decubitus ulcer Assessment & Plan: Stage IV sacral decubitus ulcer in center of dark non- blanchable erythema with induration to sacrum (L)10.5cm x(W)12cm. full thickness wound at coccyx (L)1.5cm x 1.2cm x(D)1.5cm .Bone is palpable Medial L heel non-blanchable ,fluctuant with small maroon discoloration within borders. R heel boggy-red but slow to ekta. Plan: Cleanse wound with saline. Apply Hydrogel into wound.Swab non-blanchable areas with Cavilon wipe and cover with Large Biatain drsg Daily and prn. Please upgrade to P200 Air Fluidized mattress. Cavilon wipes to both heels and continue to off-load. (2) Fecal impaction Assessment & Plan: KUB reviewed. stable. no signs of large or small bowel obstruction. stool in colon / rectum having bm's. diet as tolerated via feeds no acute surgical intervention necessary stool softener okay to d/c from surgical standpoint Justice Rajan Jul 04, 2018 15:58
[2018-07-04 16:00] VITALS: BP 109/74
[2018-07-04 20:00] VITALS: BP 137/56
[2018-07-04] MEDS: Miralax 17gm pkt GT SCH (21:21)
[2018-07-04] MEDS: Epogen (for ESRD on dialysis) SUBQ SCH (21:21)
[2018-07-05] VITALS: BP 156/68
[2018-07-05 04:00] VITALS: BP 142/55
[2018-07-05] MEDS ORDERED: Heparin Sod 1000 units/ml 10ml IV PRN (06:00)
[2018-07-05 06:30] LABS: BASOPHILS % (AUTO) 1.7 % (0.0-2.0); EOSINOPHILS % (AUTO) 1.5 % (0.0-3.0); HEMATOCRIT 28.2 % (37.0-47.0); HEMOGLOBIN 9.5 G/DL (12.0-16.0); LYMPHOCYTES % (AUTO) 5.2 % (20.0-45.0); MEAN CORPUSCULAR VOLUME 98 FL (80-99); MONOCYTES % (AUTO) 15.3 % (1.0-10.0); NEUTROPHILS % (AUTO) 76.3 % (45.0-75.0); PLATELET COUNT 138 K/UL (150-450); RED BLOOD COUNT 2.87 M/UL (4.20-5.40); RED CELL DISTRIBUTION WIDTH 13.3 % (11.6-14.8); WHITE BLOOD COUNT 6.2 K/UL (4.8-10.8)
[2018-07-05 06:50] LABS: ANION GAP 11 mmol/L (5-15); BLOOD UREA NITROGEN 100 mg/dL (7-18); CALCIUM 8.4 MG/DL (8.5-10.1); CARBON DIOXIDE 22 MMOL/L (21-32); CHLORIDE 97 MMOL/L (98-107); CREATININE 4.1 MG/DL (0.55-1.30); SODIUM 130 MMOL/L (136-145)
[2018-07-05 08:00] VITALS: BP 126/52
[2018-07-05] MEDS: Pantoprazole Inj IV SCH (09:00)
[2018-07-05] MEDS: Mineral Oil 30ml ud GT SCH (09:36)
[2018-07-05] MEDS: Minoxidil 2.5mg tab GT SCH ×2 (09:38→17:31)
--- NOTE | 2018-07-05 10:30 | Nephrology Progress Note ---
Assessment/Plan Plan ESRD - HD today. CHF - stable. Fecal impaction -resolved. Rt. newly diagnosed Renal Cell CA - Per no surgical intervention. Patient too high risk Blood cultures Proteus DW ID. Patient unstable for DC Subjective Subjective Alert. No c/o. Confused. Objective Objective Last 24 Hour Vital Signs Date Time Temp Pulse Resp B/P (MAP) Pulse Ox O2 Delivery O2 Flow Rate FiO2 07/05/18 09:38 126/52 07/05/18 04:00 99.8 79 20 142/55 (84) 98 99.8 07/05/18 01:48 87 20 Room Air 21 07/05/18 00:00 99.8 91 20 156/68 (97) 95 99.8 07/04/18 21:00 Room Air 07/04/18 20:00 98.6 88 20 137/56 (83) 96 98.6 07/04/18 17:27 109/74 07/04/18 16:00 97.4 94 21 109/74 (86) 99 97.4 07/04/18 12:00 97.3 71 19 133/51 (78) 96 97.3 Intake and Output 07/04/18 07/05/18 19:00 07:00 Intake Total 35 ml 425 ml Balance 35 ml 425 ml Free Water 40 ml Tube Feeding 35 ml 385 ml Blood Product 0 ml # Bowel Movements 3 Laboratory Tests 07/05/18 05:45: White Blood Count 6.2, Red Blood Count 2.87L, Hemoglobin 9.5L, Hematocrit 28.2L , Mean Corpuscular Volume 98, Mean Corpuscular Hemoglobin 33.0H, Mean Corpuscular Hemoglobin Concent 33.7, Red Cell Distribution Width 13.3, Platelet Count 138L, Mean Platelet Volume 6.0L, Neutrophils (%) (Auto) 76.3H, Lymphocytes (%) (Auto) 5.2L, Monocytes (%) (Auto) 15.3H, Eosinophils (%) (Auto) 1.5, Basophils (%) (Auto) 1.7, Sodium Level 130L, Potassium Level 5.0, Chloride Level 97L, Carbon Dioxide Level 22, Anion Gap 11, Blood Urea Nitrogen 100H, Creatinine 4.1H, Estimat Glomerular Filtration Rate , Glucose Level 171H, Calcium Level 8.4L, Random Vancomycin Level 16.9 Height (Feet): 5 Height (Inches): 4.00 Weight (Pounds): 152 Objective CV RR Lungs CTA Abd SNT. BS +. PEG OK. E No CCE. GIANNI AVF + bruit. Raul Cannon MD Jul 05, 2018 10:30
[2018-07-05 12:00] VITALS: BP 129/47
[2018-07-05] MEDS ORDERED: Vancomycin 1 GM in D5W 275 ML IVPB SCH (12:00)
[2018-07-05] MEDS: Piperacillin/Tazobactam 2.25 GM in D5W 55 ML IV SCH ×2 (15:50→22:57)
[2018-07-05 16:15] VITALS: BP 140/69
--- NOTE | 2018-07-05 16:50 | Infectious Diseases Prog Note ---
Assessment/Plan Assessment/Plan ASSESSMENT AND PLAN: 1. 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 Max - not stable for discharge until blood cultures sterile 2. The patient has stage IV sacral wound, possible cellulitis and infected wound. Wound care per Surgery. It does not look acutely infected and no surgical intervention at this time - management per surgery. 3. Possible sepsis with gram-positive bacteremia. 4. End-stage renal disease, on hemodialysis and shunt. 5. Diabetes. 6. Hypertension. 7. Blood sugar and blood pressure treatment per primary. 8. Anemia. 9. Organic brain syndrome. 10. Wound care per protocol. 11. Schizophrenia. 12. CHF. 13. COPD. 14. Hypothyroidism. 15. Sick sinus syndrome. 16. Diabetic nephropathy. 17. End-stage renal disease, on hemodialysis. 18. Allergies are negative. 19. Social history negative. 20. Family history noncontributory. 21. MAR was noted. 22. Case discussed with RN. 23. Continue treatment per primary consultants. 24. Case was also discussed with Dr. Cannon earlier today. Subjective Constitutional: Reports: other - weak but repsonive ; Denies: fever HEENT: Denies: other Respiratory: Denies: shortness of breath Cardiovascular: Denies: chest pain Gastrointestinal/Abdominal: Denies: nausea, vomiting, diarrhea Genitourinary: Reports: other - no sanz Neurologic: Denies: headache Psychiatric: Denies: depression Skin: Denies: rash Hematologic: Denies: bleeding Musculoskeletal: Denies: pain Allergies: Coded Allergies: No Known Allergies (Unverified , 05/11/18) Objective Vital Signs Last 24 Hour Vital Signs Date Time Temp Pulse Resp B/P (MAP) Pulse Ox O2 Delivery O2 Flow Rate FiO2 07/05/18 16:15 98.3 80 18 140/69 (92) 98 98.3 07/05/18 12:00 98.1 69 18 129/47 (74) 97 98.1 07/05/18 09:38 126/52 07/05/18 09:00 Room Air 07/05/18 08:00 98.1 68 18 126/52 (76) 98 98.1 07/05/18 04:00 99.8 79 20 142/55 (84) 98 99.8 07/05/18 01:48 87 20 Room Air 21 07/05/18 00:00 99.8 91 20 156/68 (97) 95 99.8 07/04/18 21:00 Room Air 07/04/18 20:00 98.6 88 20 137/56 (83) 96 98.6 07/04/18 17:27 109/74 Height (Feet): 5 Height (Inches): 4.00 Weight (Pounds): 152 General Appearance: no acute distress HEENT: normocephalic, atraumatic Respiratory/Chest: crackles/rales, rhonchi - bilaterally Cardiovascular: normal rate, regular rhythm, regularly irregular, no gallop/ murmur Abdomen: normal bowel sounds, soft, non tender, no organomegaly, non distended Genitourinary: other - no sanz, no cva pain Extremities: no cyanosis Skin: no rash Neurologic/Psychiatric: content curator II-XII grossly normal, alert, responsive Lymphatic: no neck adenopathy Musculoskeletal: no effusion Objective CT abdomen and pelvis: Impression: 2.5 cm right lower pole renal mass, very concerning for renal malignancy. Evidence of rectal fecal impaction, rectum distended to 9 cm The above findings were discussed by phone with Dr. Max at the time of interpretation Equivocally mildly thick-walled proximal small bowel loops, if real could indicate enteritis changes. Correlate with clinical findings Bilateral renal atrophy. Correlate with any clinical history of chronic renal disease Bilateral left greater than right renal low-attenuation. Significance uncertain, could indicate infection or hypoperfusion, the latter possibly related to chronic renal insufficiency. Correlate with clinical findings Anasarca. There is generalized edema of the subcutaneous fat, abdominal fat, mediastinal fat, as well as small bilateral pleural effusions Cardiomegaly Subcentimeter low-attenuation liver lesions, too small to characterize, most likely benign cysts or bile hamartomas Cholelithiasis Borderline splenomegaly Hiatal hernia Gastrostomy appears well-positioned Chest x-ray - cm, interstitial congestion Microbiology Date/Time Source Procedure Growth Status 07/03/18 19:35 Blood Blood Culture - Preliminary Proteus Species Resulted 07/01/18 16:00 Nasal Nares MRSA Culture - Final NO METHICILLIN RESISTANT STAPH AUREUS... Complete 06/30/18 12:01 Urine,Clean Catch Urine Culture - Final Mixed Gram Positive Organism Complete 07/01/18 16:00 Rectum VRE Culture - Final Enterococcus Faecalis - Vre Complete Microbiology Date/Time Source Procedure Growth Status 07/03/18 19:35 Blood Blood Culture - Preliminary Proteus Species Resulted 07/03/18 19:30 Blood Blood Culture - Preliminary NO GROWTH AFTER 24 HOURS Resulted Laboratory Tests Test 07/05/18 05:45 White Blood Count 6.2 K/UL (4.8-10.8) Red Blood Count 2.87 M/UL (4.20-5.40) L Hemoglobin 9.5 G/DL (12.0-16.0) L Hematocrit 28.2 % (37.0-47.0) L Mean Corpuscular Volume 98 FL (80-99) Mean Corpuscular Hemoglobin 33.0 PG (27.0-31.0) H Mean Corpuscular Hemoglobin Concent 33.7 G/DL (32.0-36.0) Red Cell Distribution Width 13.3 % (11.6-14.8) Platelet Count 138 K/UL (150-450) L Mean Platelet Volume 6.0 FL (6.5-10.1) L Neutrophils (%) (Auto) 76.3 % (45.0-75.0) H Lymphocytes (%) (Auto) 5.2 % (20.0-45.0) L Monocytes (%) (Auto) 15.3 % (1.0-10.0) H Eosinophils (%) (Auto) 1.5 % (0.0-3.0) Basophils (%) (Auto) 1.7 % (0.0-2.0) Sodium Level 130 MMOL/L (136-145) L Potassium Level 5.0 MMOL/L (3.5-5.1) Chloride Level 97 MMOL/L (98-107) L Carbon Dioxide Level 22 MMOL/L (21-32) Anion Gap 11 mmol/L (5-15) Blood Urea Nitrogen 100 mg/dL (7-18) H Creatinine 4.1 MG/DL (0.55-1.30) H Estimat Glomerular Filtration Rate mL/min (>60) Glucose Level 171 MG/DL (74-106) H Calcium Level 8.4 MG/DL (8.5-10.1) L Random Vancomycin Level 16.9 ug/mL Current Medications Medications (Trade) Dose Ordered Sig/Konrad Route PRN Reason Start Time Stop Time Status Last Admin Dose Admin Acetaminophen (Tylenol) 650 mg Q4H PRN RECTAL fever 07/02/18 21:45 08/01/18 21:44 Albuterol/ Ipratropium (Albuterol/ Ipratropium) 3 ml Q6H PRN HHN Shortness of Breath 07/02/18 21:45 07/07/18 21:44 Dextrose (Dextrose 50%) 25 ml Q30M PRN IV Hypoglycemia 07/02/18 21:45 07/30/18 12:14 Dextrose (Dextrose 50%) 50 ml Q30M PRN IV Hypoglycemia 07/02/18 21:45 07/30/18 12:14 Epoetin Chau (Procrit (for ESRD on dialysis)) 3,000 units MON-WED-SAT SUBQ 07/04/18 21:00 08/03/18 20:59 07/04/18 21:21 Heparin Sodium (Porcine) (Heparin Sod 1000 units/ml 10ml) 2,000 unit ONCE PRN IV FOR HD USE 07/05/18 06:00 07/05/18 23:59 Metoclopramide HCl (Reglan) 10 mg Q6H PRN IVP Nausea & Vomiting 07/02/18 21:45 08/01/18 21:44 Mineral Oil (Mineral Oil) 30 ml DAILY GT 07/03/18 09:00 07/30/18 16:59 07/05/18 09:36 Minoxidil (Loniten) 5 mg BID GT 07/03/18 09:00 07/30/18 17:59 07/05/18 09:38 Ondansetron HCl (Zofran) 4 mg Q6H PRN IVP Nausea & Vomiting 07/02/18 21:45 08/01/18 21:44 Pantoprazole (Protonix) 40 mg DAILY IV 07/03/18 09:00 07/31/18 08:59 07/04/18 09:16 Piperacillin Sod/ Tazobactam Sod 2.25 gm/Dextrose 55 ml @ 110 mls/hr Q8HR IV 07/05/18 14:00 07/12/18 13:59 07/05/18 15:50 Polyethylene Glycol (Miralax) 17 gm BEDTIME GT 07/02/18 21:00 08/01/18 20:59 07/04/18 21:21 Sodium Chloride 1,000 ml @ 500 mls/hr Q2H PRN IVLG sbp<90 during hd 07/05/18 06:00 07/05/18 23:59 Vancomycin HCl (Vanco rx to dose) 1 ea DAILY PRN MISC Per rx protocol 07/03/18 18:30 08/02/18 18:29 Rebecca Preston MD Jul 05, 2018 16:50
--- NOTE | 2018-07-05 17:34 | General Progress Note ---
Assessment/Plan Status: stable Assessment/Plan # Thrombocytopenia -- medication, infection or liver related, noted to have SPLENOMEGALY, also with sepsis and positive blood cultures on abx as per id --> hepatitis negative and hiv is pending --> CT of the a/p reviewed and shows SPLENOMEGALY --> slowly downtrending, transfuse if plt <20k --> ID recs appreciated # 2.5 centimeter right renal mass -- renal function is poor to begin with and she is elderly and debilitated with multiple medical issues. per uro recommends close surveillance of the mass to begin with. --> agree with urology recommendations for surveillance and q6-12mo imaging and if larger act at that time --> no hydronephrosis is noted --> would not recommend tumor markers at this time --> no further imaging indicated # Anemia of chronic disease -- anemia panel has been reviewed --> no evidence of hemolysis is noted --> hgb goal >7 # FTT - s/p gtube insertion --> peg tube feeds --> properly functioning # Diabetes # Coronary artery disease # Organic brain syndrome. She presents to the hospital with nausea and vomiting which is intractable. # Fecal impaction on CT scan. Greatly appreciate consultation! Subjective Date patient seen: Jul 05, 2018 ROS Limited/Unobtainable: Yes Hematologic/Lymphatic: Reports: anemia Allergies: Coded Allergies: No Known Allergies (Unverified , 05/11/18) Subjective Pt awake but nonverbal. H/H stable. Objective Last 24 Hour Vital Signs Date Time Temp Pulse Resp B/P (MAP) Pulse Ox O2 Delivery O2 Flow Rate FiO2 07/05/18 17:31 140/69 07/05/18 16:15 98.3 80 18 140/69 (92) 98 98.3 07/05/18 12:00 98.1 69 18 129/47 (74) 97 98.1 07/05/18 09:38 126/52 07/05/18 09:00 Room Air 07/05/18 08:00 98.1 68 18 126/52 (76) 98 98.1 07/05/18 04:00 99.8 79 20 142/55 (84) 98 99.8 07/05/18 01:48 87 20 Room Air 21 07/05/18 00:00 99.8 91 20 156/68 (97) 95 99.8 07/04/18 21:00 Room Air 07/04/18 20:00 98.6 88 20 137/56 (83) 96 98.6 Intake and Output 07/04/18 07/05/18 19:00 07:00 Intake Total 35 ml 460 ml Balance 35 ml 460 ml Free Water 40 ml Tube Feeding 35 ml 420 ml Blood Product 0 ml # Bowel Movements 3 Laboratory Tests 07/05/18 05:45: White Blood Count 6.2, Red Blood Count 2.87L, Hemoglobin 9.5L, Hematocrit 28.2L , Mean Corpuscular Volume 98, Mean Corpuscular Hemoglobin 33.0H, Mean Corpuscular Hemoglobin Concent 33.7, Red Cell Distribution Width 13.3, Platelet Count 138L, Mean Platelet Volume 6.0L, Neutrophils (%) (Auto) 76.3H, Lymphocytes (%) (Auto) 5.2L, Monocytes (%) (Auto) 15.3H, Eosinophils (%) (Auto) 1.5, Basophils (%) (Auto) 1.7, Sodium Level 130L, Potassium Level 5.0, Chloride Level 97L, Carbon Dioxide Level 22, Anion Gap 11, Blood Urea Nitrogen 100H, Creatinine 4.1H, Estimat Glomerular Filtration Rate , Glucose Level 171H, Calcium Level 8.4L, Random Vancomycin Level 16.9 Height (Feet): 5 Height (Inches): 4.00 Weight (Pounds): 152 General Appearance: no apparent distress EENT: PERRL/EOMI Neck: normal alignment Cardiovascular: normal peripheral pulses Respiratory/Chest: no respiratory distress Abdomen: no mass Blayne Carroll MD Jul 05, 2018 17:34
[2018-07-05 20:00] VITALS: BP 145/62
[2018-07-05] MEDS: Miralax 17gm pkt GT SCH (22:56)
[2018-07-06] VITALS: BP 139/82
[2018-07-06 04:00] VITALS: BP 122/54
[2018-07-06] MEDS: Piperacillin/Tazobactam 2.25 GM in D5W 55 ML IV SCH ×3 (05:05→21:08)
[2018-07-06 06:29] LABS: BASOPHILS % (AUTO) 1.3 % (0.0-2.0); EOSINOPHILS % (AUTO) 3.9 % (0.0-3.0); HEMATOCRIT 27.4 % (37.0-47.0); HEMOGLOBIN 9.3 G/DL (12.0-16.0); LYMPHOCYTES % (AUTO) 6.6 % (20.0-45.0); MEAN CORPUSCULAR VOLUME 98 FL (80-99); MONOCYTES % (AUTO) 13.8 % (1.0-10.0); NEUTROPHILS % (AUTO) 74.3 % (45.0-75.0); PLATELET COUNT 149 K/UL (150-450); RED BLOOD COUNT 2.81 M/UL (4.20-5.40); RED CELL DISTRIBUTION WIDTH 13.6 % (11.6-14.8); WHITE BLOOD COUNT 5.6 K/UL (4.8-10.8)
[2018-07-06 06:54] LABS: ANION GAP 9 mmol/L (5-15); BLOOD UREA NITROGEN 68 mg/dL (7-18); CALCIUM 8.4 MG/DL (8.5-10.1); CARBON DIOXIDE 24 MMOL/L (21-32); CHLORIDE 96 MMOL/L (98-107); CREATININE 3.1 MG/DL (0.55-1.30); POTASSIUM 4.2 MMOL/L (3.5-5.1); SODIUM 129 MMOL/L (136-145)
[2018-07-06 07:34] VITALS: BP 146/56
[2018-07-06] MEDS: Minoxidil 2.5mg tab GT SCH ×2 (08:35→17:22)
[2018-07-06] MEDS: Mineral Oil 30ml ud GT SCH (08:35)
[2018-07-06] MEDS: Pantoprazole Inj IV SCH (08:35)
--- NOTE | 2018-07-06 08:54 | Diagnostic Imaging Report ---
PORTABLE AP UPRIGHT CXR: HISTORY: 72-year-old female with SOB. COMPARISON: 06/30/2018. FINDINGS: Image is limited by portable technique and patient body habitus. Allowing for this, there has been no definite significant interval change. Lung volumes remain mildly low. There is mild interstitial prominence bilaterally, likely at least secondary to small airways wall thickening. No confluent lung consolidation identified. Borderline/mild cardiomegaly is grossly stable. No obvious significant pleural effusions or pneumothorax. IMPRESSION: No definite significant interval change.
--- NOTE | 2018-07-06 09:42 | Nephrology Progress Note ---
Assessment/Plan Plan ESRD - TTS. CHF - stable. Fecal impaction -resolved. Rt. newly diagnosed Renal Cell CA - Per no surgical intervention. Patient too high risk Is the Proteus sepsis coming from the Rt. Kidney? Blood cultures Proteus DW ID. Patient unstable for DC Subjective Subjective Alert. No c/o. Confused. Objective Objective Last 24 Hour Vital Signs Date Time Temp Pulse Resp B/P (MAP) Pulse Ox O2 Delivery O2 Flow Rate FiO2 07/06/18 08:35 146/56 07/06/18 07:34 97.4 68 20 146/56 (86) 97 97.4 07/06/18 04:00 97.8 66 20 122/54 (76) 97 97.8 07/06/18 00:00 99.0 85 20 139/82 (101) 97 99.0 07/05/18 21:00 Room Air 07/05/18 20:00 99.2 83 20 145/62 (89) 96 99.2 07/05/18 19:57 74 18 Room Air 21 07/05/18 17:31 140/69 07/05/18 16:15 98.3 80 18 140/69 (92) 98 98.3 07/05/18 16:08 81 20 Room Air 21 07/05/18 12:00 98.1 69 18 129/47 (74) 97 98.1 Intake and Output 07/05/18 07/06/18 19:00 07:00 Intake Total 870 ml 555 ml Balance 870 ml 555 ml Free Water 120 ml 60 ml IV Total 330 ml 110 ml Tube Feeding 420 ml 385 ml # Voids 1 Laboratory Tests 07/06/18 05:35: White Blood Count 5.6, Red Blood Count 2.81L, Hemoglobin 9.3L, Hematocrit 27.4L , Mean Corpuscular Volume 98, Mean Corpuscular Hemoglobin 33.2H, Mean Corpuscular Hemoglobin Concent 34.0, Red Cell Distribution Width 13.6, Platelet Count 149L, Mean Platelet Volume 5.9L, Neutrophils (%) (Auto) 74.3, Lymphocytes (%) (Auto) 6.6L, Monocytes (%) (Auto) 13.8H, Eosinophils (%) (Auto) 3.9H, Basophils (%) (Auto) 1.3, Sodium Level 129L, Potassium Level 4.2, Chloride Level 96L, Carbon Dioxide Level 24, Anion Gap 9, Blood Urea Nitrogen 68H, Creatinine 3.1H, Estimat Glomerular Filtration Rate , Glucose Level 165H, Calcium Level 8.4L Height (Feet): 5 Height (Inches): 4.00 Weight (Pounds): 152 Objective CV RR Lungs CTA Abd SNT. BS +. PEG OK. E No CCE. GIANNI AVF + bruit. Raul Cannon MD Jul 06, 2018 09:42
[2018-07-06 11:14] VITALS: BP 129/53
--- NOTE | 2018-07-06 14:10 | General Surgery Progress Note ---
General Surgery-Progress Note Subjective Additional Comments Blood cultures with Proteus. Objective Last 24 Hour Vital Signs Date Time Temp Pulse Resp B/P (MAP) Pulse Ox O2 Delivery O2 Flow Rate FiO2 07/06/18 11:14 97.7 63 21 129/53 (78) 99 97.7 07/06/18 09:00 Room Air 07/06/18 08:35 146/56 07/06/18 07:34 97.4 68 20 146/56 (86) 97 97.4 07/06/18 04:00 97.8 66 20 122/54 (76) 97 97.8 07/06/18 00:00 99.0 85 20 139/82 (101) 97 99.0 07/05/18 21:00 Room Air 07/05/18 20:00 99.2 83 20 145/62 (89) 96 99.2 07/05/18 19:57 74 18 Room Air 21 07/05/18 17:31 140/69 07/05/18 16:15 98.3 80 18 140/69 (92) 98 98.3 07/05/18 16:08 81 20 Room Air 21 I&O Intake and Output 07/05/18 07/06/18 19:00 07:00 Intake Total 870 ml 590 ml Balance 870 ml 590 ml Free Water 120 ml 60 ml IV Total 330 ml 110 ml Tube Feeding 420 ml 420 ml # Voids 1 Dressing: other Wound: other Drains: other Cardiovascular: RSR Respiratory: clear, decreased breath sounds Abdomen: soft, present bowel sounds Extremities: other Laboratory Tests Test 07/06/18 05:35 White Blood Count 5.6 K/UL (4.8-10.8) Red Blood Count 2.81 M/UL (4.20-5.40) L Hemoglobin 9.3 G/DL (12.0-16.0) L Hematocrit 27.4 % (37.0-47.0) L Mean Corpuscular Volume 98 FL (80-99) Mean Corpuscular Hemoglobin 33.2 PG (27.0-31.0) H Mean Corpuscular Hemoglobin Concent 34.0 G/DL (32.0-36.0) Red Cell Distribution Width 13.6 % (11.6-14.8) Platelet Count 149 K/UL (150-450) L Mean Platelet Volume 5.9 FL (6.5-10.1) L Neutrophils (%) (Auto) 74.3 % (45.0-75.0) Lymphocytes (%) (Auto) 6.6 % (20.0-45.0) L Monocytes (%) (Auto) 13.8 % (1.0-10.0) H Eosinophils (%) (Auto) 3.9 % (0.0-3.0) H Basophils (%) (Auto) 1.3 % (0.0-2.0) Sodium Level 129 MMOL/L (136-145) L Potassium Level 4.2 MMOL/L (3.5-5.1) Chloride Level 96 MMOL/L (98-107) L Carbon Dioxide Level 24 MMOL/L (21-32) Anion Gap 9 mmol/L (5-15) Blood Urea Nitrogen 68 mg/dL (7-18) H Creatinine 3.1 MG/DL (0.55-1.30) H Estimat Glomerular Filtration Rate mL/min (>60) Glucose Level 165 MG/DL (74-106) H Calcium Level 8.4 MG/DL (8.5-10.1) L Plan Problems: (1) Stage 4 decubitus ulcer Assessment & Plan: Stage IV sacral decubitus ulcer in center of dark non- blanchable erythema with induration to sacrum (L)10.5cm x(W)12cm. full thickness wound at coccyx (L)1.5cm x 1.2cm x(D)1.5cm .Bone is palpable Medial L heel non-blanchable ,fluctuant with small maroon discoloration within borders. R heel boggy-red but slow to ekta. Plan: Cleanse wound with saline. Apply Hydrogel into wound.Swab non-blanchable areas with Cavilon wipe and cover with Large Biatain drsg Daily and prn. Please upgrade to P200 Air Fluidized mattress. Cavilon wipes to both heels and continue to off-load. (2) Fecal impaction Assessment & Plan: KUB reviewed. stable. no signs of large or small bowel obstruction. stool in colon / rectum having bm's. diet as tolerated via feeds no acute surgical intervention necessary stool softener (3) UTI (urinary tract infection) Assessment & Plan: Bacteremia etiology unknown possible from renal tumor? defer to available if needed thank you Justice Rajan Jul 06, 2018 14:10
[2018-07-06 15:39] VITALS: BP 130/56
--- NOTE | 2018-07-06 19:59 | General Progress Note ---
Assessment/Plan Status: stable Assessment/Plan # Thrombocytopenia -- medication, infection or liver related, noted to have SPLENOMEGALY, also with sepsis and positive blood cultures on abx as per id --> hepatitis negative and hiv is pending --> CT of the a/p reviewed and shows SPLENOMEGALY --> slowly downtrending, transfuse if plt <20k --> ID recs appreciated # 2.5 centimeter right renal mass -- renal function is poor to begin with and she is elderly and debilitated with multiple medical issues. per uro recommends close surveillance of the mass to begin with. --> agree with urology recommendations for surveillance and q6-12mo imaging and if larger act at that time --> no hydronephrosis is noted --> would not recommend tumor markers at this time --> no further imaging indicated # Anemia of chronic disease -- anemia panel has been reviewed --> no evidence of hemolysis is noted --> hgb goal >7 # FTT - s/p gtube insertion --> peg tube feeds --> properly functioning # Diabetes # Coronary artery disease # Organic brain syndrome. She presents to the hospital with nausea and vomiting which is intractable. # Fecal impaction on CT scan. Greatly appreciate consultation! Subjective Date patient seen: Jul 06, 2018 ROS Limited/Unobtainable: Yes Hematologic/Lymphatic: Reports: anemia Allergies: Coded Allergies: No Known Allergies (Unverified , 05/11/18) Subjective No acute events. Pt awake but nonverbal. H/H stable. Objective Last 24 Hour Vital Signs Date Time Temp Pulse Resp B/P (MAP) Pulse Ox O2 Delivery O2 Flow Rate FiO2 07/06/18 17:22 130/56 07/06/18 15:39 97.4 63 17 130/56 (80) 97 97.4 07/06/18 11:14 97.7 63 21 129/53 (78) 99 97.7 07/06/18 09:00 Room Air 07/06/18 08:35 146/56 07/06/18 07:34 97.4 68 20 146/56 (86) 97 97.4 07/06/18 04:00 97.8 66 20 122/54 (76) 97 97.8 07/06/18 00:00 99.0 85 20 139/82 (101) 97 99.0 07/05/18 21:00 Room Air 07/05/18 20:00 99.2 83 20 145/62 (89) 96 99.2 Intake and Output 07/05/18 07/06/18 19:00 07:00 Intake Total 870 ml 590 ml Balance 870 ml 590 ml Free Water 120 ml 60 ml IV Total 330 ml 110 ml Tube Feeding 420 ml 420 ml # Voids 1 Laboratory Tests 07/06/18 05:35: White Blood Count 5.6, Red Blood Count 2.81L, Hemoglobin 9.3L, Hematocrit 27.4L , Mean Corpuscular Volume 98, Mean Corpuscular Hemoglobin 33.2H, Mean Corpuscular Hemoglobin Concent 34.0, Red Cell Distribution Width 13.6, Platelet Count 149L, Mean Platelet Volume 5.9L, Neutrophils (%) (Auto) 74.3, Lymphocytes (%) (Auto) 6.6L, Monocytes (%) (Auto) 13.8H, Eosinophils (%) (Auto) 3.9H, Basophils (%) (Auto) 1.3, Sodium Level 129L, Potassium Level 4.2, Chloride Level 96L, Carbon Dioxide Level 24, Anion Gap 9, Blood Urea Nitrogen 68H, Creatinine 3.1H, Estimat Glomerular Filtration Rate , Glucose Level 165H, Calcium Level 8.4L Height (Feet): 5 Height (Inches): 4.00 Weight (Pounds): 152 General Appearance: no apparent distress, lethargic EENT: PERRL/EOMI Neck: normal alignment Cardiovascular: normal peripheral pulses Respiratory/Chest: no respiratory distress Abdomen: soft Blayne Carroll MD Jul 06, 2018 19:59
[2018-07-06 20:00] VITALS: BP 140/57
[2018-07-06] MEDS: Miralax 17gm pkt GT SCH (21:07)
[2018-07-07] VITALS: BP 131/52
[2018-07-07 04:00] VITALS: BP 125/47
[2018-07-07] MEDS: Piperacillin/Tazobactam 2.25 GM in D5W 55 ML IV SCH ×2 (05:01→13:48)
--- NOTE | 2018-07-07 07:16 | General Progress Note ---
Assessment/Plan Assessment/Plan # Thrombocytopenia -- medication, infection or liver related, noted to have SPLENOMEGALY, also with sepsis and positive blood cultures on abx as per id --> hepatitis negative and hiv is pending --> CT of the a/p reviewed and shows SPLENOMEGALY --> slowly downtrending, transfuse if plt <20k --> ID recs appreciated # 2.5 centimeter right renal mass -- renal function is poor to begin with and she is elderly and debilitated with multiple medical issues. per uro recommends close surveillance of the mass to begin with. --> agree with urology recommendations for surveillance and q6-12mo imaging and if larger act at that time --> no hydronephrosis is noted --> would not recommend tumor markers at this time --> no further imaging indicated # Anemia of chronic disease -- anemia panel has been reviewed --> no evidence of hemolysis is noted --> hgb goal >7 # FTT - s/p gtube insertion --> peg tube feeds --> properly functioning # Diabetes # Coronary artery disease # Organic brain syndrome. She presents to the hospital with nausea and vomiting which is intractable. # Fecal impaction on CT scan Greatly appreciate consultation! Subjective Constitutional: Denies: no symptoms, chills, diaphoresis, fever, malaise, weakness, other HEENT: Denies: no symptoms, eye pain, blurred vision, tearing, double vision, ear pain, ear discharge, nose pain, nose congestion, throat pain, throat swelling, mouth pain, mouth swelling, other Cardiovascular: Denies: no symptoms, chest pain, edema, irregular heart rate, lightheadedness, palpitations, syncope, other Respiratory: Denies: no symptoms, cough, orthopnea, shortness of breath, SOB with excertion, SOB at rest, sputum, stridor, wheezing, other Gastrointestinal/Abdominal: Denies: no symptoms, abdomen distended, abdominal pain, black stools, tarry stools, blood in stool, constipated, diarrhea, difficulty swallowing, nausea, poor appetite, poor fluid intake, rectal bleeding , vomiting, other Genitourinary: Reports: no symptoms Neurologic/Psychiatric: Denies: no symptoms, anxiety, depressed, emotional problems, headache, numbness, paresthesia, pre-existing deficit, seizure, tingling, tremors, weakness, other Endocrine: Denies: no symptoms, excessive sweating, flushing, intolerance to cold, intolerance to heat, increased hunger, increased thirst, increased urine, unexplained weight gain, unexplained weight loss, other Hematologic/Lymphatic: Denies: no symptoms, anemia, easy bleeding, easy bruising, other Allergies: Coded Allergies: No Known Allergies (Unverified , 05/11/18) Subjective No acute events. Remains non-verbal. H/H stable. Objective Last 24 Hour Vital Signs Date Time Temp Pulse Resp B/P (MAP) Pulse Ox O2 Delivery O2 Flow Rate FiO2 07/07/18 04:00 97.5 63 18 125/47 (73) 96 97.5 07/07/18 00:00 97.9 62 18 131/52 (78) 97 97.9 07/06/18 21:00 Room Air 07/06/18 20:00 97.7 71 19 140/57 (84) 98 97.7 07/06/18 17:22 130/56 07/06/18 15:39 97.4 63 17 130/56 (80) 97 97.4 07/06/18 11:14 97.7 63 21 129/53 (78) 99 97.7 07/06/18 09:00 Room Air 07/06/18 08:35 146/56 07/06/18 07:34 97.4 68 20 146/56 (86) 97 97.4 Intake and Output 07/06/18 07/07/18 19:00 07:00 Intake Total 545 ml 675 ml Balance 545 ml 675 ml Free Water 70 ml 180 ml IV Total 55 ml 110 ml Tube Feeding 420 ml 385 ml # Bowel Movements 2 2 Height (Feet): 5 Height (Inches): 4.00 Weight (Pounds): 152 General Appearance: alert EENT: TMs normal Neck: supple Cardiovascular: regular rhythm Respiratory/Chest: normal breath sounds Abdomen: non tender Extremities: normal inspection Edema: 1+ Leg (L), 1+ Leg (R) Edema: mild edema Neurologic: alert Skin: warm/dry Blayne Carroll MD Jul 07, 2018 07:16
[2018-07-07 08:00] VITALS: BP 139/60
[2018-07-07] MEDS: Mineral Oil 30ml ud GT SCH (08:16)
[2018-07-07] MEDS: Pantoprazole Inj IV SCH (08:16)
[2018-07-07] MEDS: Minoxidil 2.5mg tab GT SCH ×2 (08:17→17:41)
--- NOTE | 2018-07-07 09:37 | Cardiology Report ---
APPROVED REPORT EXAM: Two-dimensional and M-mode echocardiogram with Doppler and color Doppler. INDICATION Endocarditis M-Mode DIMENSIONS IVSd1.8 (0.7-1.1cm)Left Atrium (MM)4.0 (1.6-4.0cm) LVDd5.2 (3.5-5.6cm)Aortic Root3.2 (2.0-3.7cm) PWd1.3 (0.7-1.1cm)Aortic Cusp Exc.2.2 (1.5-2.0cm) LVDs2.6 (2.5-4.0cm) PWs2.2 cm Normal left ventricular chamber size, systolic function and wall motion. Left ventricular ejection fraction estimated to be 55 %. Mild left ventricular hypertrophy. No evidence of pericardial effusion. Mild right ventricular enlargement. Right atrial chamber size is within normal limits. Left atrial chamber size is within normal limits. Mild focal aortic valve sclerosis with adequate cusp excursion. Moderately thickened mitral valve leaflets with normal excursion. Moderate mitral annulus and aortic root calcification. Normal pulmonic valve structure. Normal tricuspid valve structure. Subcostal views not obtained due to G-tube. A color flow and spectral Doppler study was performed and revealed: Trace aortic insufficiency. Peak aortic valve gradient of 20 mmHg and a mean of 8 mmHg. Aortic valve area 1.6 cm2 calculated by continuity equation. Trace mitral regurgitation. Mitral inflow velocities indicates possible pseudo normalization pattern implying significant left ventricular diastolic dysfunction (Grade II). Trace tricuspid regurgitation. Tricuspid systolic velocities suggests peak right ventricular systolic pressure of 34 mmHg. No pulmonic regurgitation present.
--- NOTE | 2018-07-07 11:13 | GI Progress Note ---
Assessment/Plan Problems: (1) Gastrostomy tube dependent ICD Codes: Z93.1 - Gastrostomy status SNOMED: 674692976, 980664015 (2) Vomiting ICD Codes: R11.10 - Vomiting, unspecified SNOMED: 971261384 (3) Fecal impaction ICD Codes: K56.41 - Fecal impaction SNOMED: 20467290 (4) Hematemesis ICD Codes: K92.0 - Hematemesis SNOMED: 7264029 Status: progressing Status Narrative Discussed with Dr. Taylor. Assessment/Plan CT AP reviewed >> severe fecal impaction, resolved. intractable N/V, resolved. no anemia okay for DC per GI standpoint GTFs per RD to goal, tolerating bowel regime stop mineral oil electrolyte correction ppi fu labs The patient was seen and examined at bedside and all new and available data was reviewed in the patients chart. I agree with the above findings, impression and plan. (Patient seen earlier today. Signature stamp does not reflect patient encounter time.). - Hilton Taylor MD Subjective Subjective limited Objective Last 24 Hour Vital Signs Date Time Temp Pulse Resp B/P (MAP) Pulse Ox O2 Delivery O2 Flow Rate FiO2 07/07/18 09:00 Room Air 07/07/18 08:17 139/60 07/07/18 08:00 98.3 63 20 139/60 (86) 99 98.3 07/07/18 04:00 97.5 63 18 125/47 (73) 96 97.5 07/07/18 00:00 97.9 62 18 131/52 (78) 97 97.9 07/06/18 21:00 Room Air 07/06/18 20:00 97.7 71 19 140/57 (84) 98 97.7 07/06/18 17:22 130/56 07/06/18 15:39 97.4 63 17 130/56 (80) 97 97.4 07/06/18 11:14 97.7 63 21 129/53 (78) 99 97.7 Intake and Output 07/06/18 07/07/18 19:00 07:00 Intake Total 545 ml 675 ml Balance 545 ml 675 ml Free Water 70 ml 180 ml IV Total 55 ml 110 ml Tube Feeding 420 ml 385 ml # Bowel Movements 2 2 Height (Feet): 5 Height (Inches): 4.00 Weight (Pounds): 152 General Appearance: alert Cardiovascular: normal rate Respiratory/Chest: normal breath sounds, no respiratory distress Abdominal Exam: soft Janene Ellis NP Jul 07, 2018 11:13
[2018-07-07 12:00] VITALS: BP 125/49
--- NOTE | 2018-07-07 15:41 | Nephrology Progress Note ---
Assessment/Plan Plan ESRD - TTS. CHF - stable. Fecal impaction -resolved. Rt. newly diagnosed Renal Cell CA - Per no surgical intervention. Patient too high risk Is the Proteus sepsis coming from the Rt. Kidney? Blood cultures Proteus DW ID. Patient unstable for DC yet. Needs ID clearance! Subjective Subjective Alert. No c/o. Confused. Objective Objective Last 24 Hour Vital Signs Date Time Temp Pulse Resp B/P (MAP) Pulse Ox O2 Delivery O2 Flow Rate FiO2 07/07/18 12:00 97.2 63 19 125/49 (74) 96 97.2 07/07/18 09:00 Room Air 07/07/18 08:17 139/60 07/07/18 08:00 98.3 63 20 139/60 (86) 99 98.3 07/07/18 04:00 97.5 63 18 125/47 (73) 96 97.5 07/07/18 00:00 97.9 62 18 131/52 (78) 97 97.9 07/06/18 21:00 Room Air 07/06/18 20:00 97.7 71 19 140/57 (84) 98 97.7 07/06/18 17:22 130/56 Intake and Output 07/06/18 07/07/18 19:00 07:00 Intake Total 545 ml 710 ml Balance 545 ml 710 ml Free Water 70 ml 180 ml IV Total 55 ml 110 ml Tube Feeding 420 ml 420 ml # Bowel Movements 2 2 Height (Feet): 5 Height (Inches): 4.00 Weight (Pounds): 152 Objective CV RR Lungs CTA Abd SNT. BS +. PEG OK. E No CCE. GIANNI AVF + bruit. Raul Cannon MD Jul 07, 2018 15:41
--- NOTE | 2018-07-07 15:43 | General Surgery Progress Note ---
General Surgery-Progress Note Subjective Additional Comments no acute events. Objective Last 24 Hour Vital Signs Date Time Temp Pulse Resp B/P (MAP) Pulse Ox O2 Delivery O2 Flow Rate FiO2 07/07/18 12:00 97.2 63 19 125/49 (74) 96 97.2 07/07/18 09:00 Room Air 07/07/18 08:17 139/60 07/07/18 08:00 98.3 63 20 139/60 (86) 99 98.3 07/07/18 04:00 97.5 63 18 125/47 (73) 96 97.5 07/07/18 00:00 97.9 62 18 131/52 (78) 97 97.9 07/06/18 21:00 Room Air 07/06/18 20:00 97.7 71 19 140/57 (84) 98 97.7 07/06/18 17:22 130/56 I&O Intake and Output 07/06/18 07/07/18 19:00 07:00 Intake Total 545 ml 710 ml Balance 545 ml 710 ml Free Water 70 ml 180 ml IV Total 55 ml 110 ml Tube Feeding 420 ml 420 ml # Bowel Movements 2 2 Dressing: other Wound: other Drains: other Cardiovascular: RSR Respiratory: clear, decreased breath sounds Abdomen: soft, distended, non-tender, present bowel sounds Extremities: other Plan Problems: (1) Stage 4 decubitus ulcer Assessment & Plan: Stage IV sacral decubitus ulcer in center of dark non- blanchable erythema with induration to sacrum (L)10.5cm x(W)12cm. full thickness wound at coccyx (L)1.5cm x 1.2cm x(D)1.5cm .Bone is palpable Medial L heel non-blanchable ,fluctuant with small maroon discoloration within borders. R heel boggy-red but slow to ekta. Plan: Cleanse wound with saline. Apply Hydrogel into wound.Swab non-blanchable areas with Cavilon wipe and cover with Large Biatain drsg Daily and prn. Please upgrade to P200 Air Fluidized mattress. Cavilon wipes to both heels and continue to off-load. (2) Fecal impaction Assessment & Plan: KUB reviewed. stable. no signs of large or small bowel obstruction. stool in colon / rectum having bm's. diet as tolerated via feeds no acute surgical intervention necessary stool softener (3) UTI (urinary tract infection) Assessment & Plan: Bacteremia etiology unknown possible from renal tumor? defer to available if needed thank you Justice Rajan Jul 07, 2018 15:43
[2018-07-07 16:00] VITALS: BP 136/54
--- NOTE | 2018-07-07 18:40 | Infectious Diseases Prog Note ---
Assessment/Plan Assessment/Plan ASSESSMENT AND PLAN: 1. 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 Cannon about abx mgt 2. The patient has stage IV sacral wound, possible cellulitis and infected wound. Wound care per Surgery. It does not look acutely infected and no surgical intervention at this time - management per surgery. 3. Possible sepsis with gram-positive bacteremia. 4. End-stage renal disease, on hemodialysis and shunt. 5. Diabetes. 6. Hypertension. 7. Blood sugar and blood pressure treatment per primary. 8. Anemia. 9. Organic brain syndrome. 10. Wound care per protocol. 11. Schizophrenia. 12. CHF. 13. COPD. 14. Hypothyroidism. 15. Sick sinus syndrome. 16. Diabetic nephropathy. 17. End-stage renal disease, on hemodialysis. 18. Allergies are negative. 19. Social history negative. 20. Family history noncontributory. 21. MAR was noted. 22. Case discussed with RN. 23. Continue treatment per primary consultants. 24. Case was also discussed with Dr. Cannon earlier today. Subjective Constitutional: Reports: other - more alert ; Denies: fever HEENT: Denies: congestion Respiratory: Denies: shortness of breath Cardiovascular: Denies: chest pain Gastrointestinal/Abdominal: Denies: nausea, vomiting, diarrhea Genitourinary: Reports: other - no sanz Neurologic: Denies: headache Psychiatric: Denies: depression Skin: Denies: rash Hematologic: Denies: bleeding Musculoskeletal: Denies: pain Allergies: Coded Allergies: No Known Allergies (Unverified , 05/11/18) Objective Vital Signs Last 24 Hour Vital Signs Date Time Temp Pulse Resp B/P (MAP) Pulse Ox O2 Delivery O2 Flow Rate FiO2 07/07/18 17:41 125/49 07/07/18 16:00 97.2 61 20 136/54 (81) 96 97.2 07/07/18 12:00 97.2 63 19 125/49 (74) 96 97.2 07/07/18 09:00 Room Air 10/8/18 08:17 139/60 07/07/18 08:00 98.3 63 20 139/60 (86) 99 98.3 07/07/18 04:00 97.5 63 18 125/47 (73) 96 97.5 07/07/18 00:00 97.9 62 18 131/52 (78) 97 97.9 07/06/18 21:00 Room Air 07/06/18 20:00 97.7 71 19 140/57 (84) 98 97.7 Height (Feet): 5 Height (Inches): 4.00 Weight (Pounds): 152 General Appearance: no acute distress HEENT: normocephalic, atraumatic, anicteric, mucous membranes moist Respiratory/Chest: lungs clear, normal breath sounds, no respiratory distress, no accessory muscle use Cardiovascular: normal rate, regular rhythm, no gallop/murmur, no JVD Abdomen: normal bowel sounds, soft, non tender, no organomegaly, non distended Genitourinary: other - no sanz Extremities: no cyanosis Skin: no rash Neurologic/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 Evidence of rectal fecal impaction, rectum distended to 9 cm The above findings were discussed by phone with Dr. Max at the time of interpretation Equivocally mildly thick-walled proximal small bowel loops, if real could indicate enteritis changes. Correlate with clinical findings Bilateral renal atrophy. Correlate with any clinical history of chronic renal disease Bilateral left greater than right renal low-attenuation. Significance uncertain, could indicate infection or hypoperfusion, the latter possibly related to chronic renal insufficiency. Correlate with clinical findings Anasarca. There is generalized edema of the subcutaneous fat, abdominal fat, mediastinal fat, as well as small bilateral pleural effusions Cardiomegaly Subcentimeter low-attenuation liver lesions, too small to characterize, most likely benign cysts or bile hamartomas Cholelithiasis Borderline splenomegaly Hiatal hernia Gastrostomy appears well-positioned Chest x-ray - cm, interstitial congestion Chest x-ray - 07/06 - COMPARISON: 06/30/2018. FINDINGS: Image is limited by portable technique and patient body habitus. Allowing for this, there has been no definite significant interval change. Lung volumes remain mildly low. There is mild interstitial prominence bilaterally, likely at least secondary to small airways wall thickening. No confluent lung consolidation identified. Borderline/mild cardiomegaly is grossly stable. No obvious significant pleural effusions or pneumothorax. IMPRESSION: No definite significant interval change. Microbiology Date/Time Source Procedure Growth Status 07/03/18 19:35 Blood Blood Culture - Final Proteus Mirabilis Complete 07/01/18 16:00 Nasal Nares MRSA Culture - Final NO METHICILLIN RESISTANT STAPH AUREUS... Complete 06/30/18 12:01 Urine,Clean Catch Urine Culture - Final Mixed Gram Positive Organism Complete 07/01/18 16:00 Rectum VRE Culture - Final Enterococcus Faecalis - Vre Complete Labs Test 07/05/18 05:45 07/06/18 05:35 White Blood Count 6.2 K/UL (4.8-10.8) 5.6 K/UL (4.8-10.8) Red Blood Count 2.87 M/UL (4.20-5.40) 2.81 M/UL (4.20-5.40) Hemoglobin 9.5 G/DL (12.0-16.0) 9.3 G/DL (12.0-16.0) Hematocrit 28.2 % (37.0-47.0) 27.4 % (37.0-47.0) Mean Corpuscular Volume 98 FL (80-99) 98 FL (80-99) Mean Corpuscular Hemoglobin 33.0 PG (27.0-31.0) 33.2 PG (27.0-31.0) Mean Corpuscular Hemoglobin Concent 33.7 G/DL (32.0-36.0) 34.0 G/DL (32.0-36.0) Red Cell Distribution Width 13.3 % (11.6-14.8) 13.6 % (11.6-14.8) Platelet Count 138 K/UL (150-450) 149 K/UL (150-450) Mean Platelet Volume 6.0 FL (6.5-10.1) 5.9 FL (6.5-10.1) Neutrophils (%) (Auto) 76.3 % (45.0-75.0) 74.3 % (45.0-75.0) Lymphocytes (%) (Auto) 5.2 % (20.0-45.0) 6.6 % (20.0-45.0) Monocytes (%) (Auto) 15.3 % (1.0-10.0) 13.8 % (1.0-10.0) Eosinophils (%) (Auto) 1.5 % (0.0-3.0) 3.9 % (0.0-3.0) Basophils (%) (Auto) 1.7 % (0.0-2.0) 1.3 % (0.0-2.0) Sodium Level 130 MMOL/L (136-145) 129 MMOL/L (136-145) Potassium Level 5.0 MMOL/L (3.5-5.1) 4.2 MMOL/L (3.5-5.1) Chloride Level 97 MMOL/L (98-107) 96 MMOL/L (98-107) Carbon Dioxide Level 22 MMOL/L (21-32) 24 MMOL/L (21-32) Anion Gap 11 mmol/L (5-15) 9 mmol/L (5-15) Blood Urea Nitrogen 100 mg/dL (7-18) 68 mg/dL (7-18) Creatinine 4.1 MG/DL (0.55-1.30) 3.1 MG/DL (0.55-1.30) Estimat Glomerular Filtration Rate mL/min (>60) mL/min (>60) Glucose Level 171 MG/DL (74-106) 165 MG/DL (74-106) Calcium Level 8.4 MG/DL (8.5-10.1) 8.4 MG/DL (8.5-10.1) Random Vancomycin Level 16.9 ug/mL Current Medications Medications (Trade) Dose Ordered Sig/Konrad Route PRN Reason Start Time Stop Time Status Last Admin Dose Admin Acetaminophen (Tylenol) 650 mg Q4H PRN RECTAL fever 07/02/18 21:45 08/01/18 21:44 Albuterol/ Ipratropium (Albuterol/ Ipratropium) 3 ml Q6H PRN HHN Shortness of Breath 07/02/18 21:45 07/07/18 21:44 Ceftriaxone Sodium 1 gm/ Dextrose 50 ml @ 100 mls/hr Q24H IVPB 07/07/18 20:00 07/14/18 19:59 Dextrose (Dextrose 50%) 25 ml Q30M PRN IV Hypoglycemia 07/02/18 21:45 07/30/18 12:14 Dextrose (Dextrose 50%) 50 ml Q30M PRN IV Hypoglycemia 07/02/18 21:45 07/30/18 12:14 Epoetin Chau (Procrit (for ESRD on dialysis)) 3,000 units SAT-SAT-SAT SUBQ 07/04/18 21:00 08/03/18 20:59 07/04/18 21:21 Heparin Sodium (Porcine) (Heparin Sod 1000 units/ml 10ml) 2,000 unit ONCE IV 07/08/18 12:00 07/08/18 23:59 Heparin Sodium (Porcine) (Heparin) 1,000 unit POSTHD INJ 07/08/18 12:00 07/08/18 23:59 Metoclopramide HCl (Reglan) 10 mg Q6H PRN IVP Nausea & Vomiting 07/02/18 21:45 08/01/18 21:44 Minoxidil (Loniten) 5 mg BID GT 07/03/18 09:00 07/30/18 17:59 07/07/18 17:41 Ondansetron HCl (Zofran) 4 mg Q6H PRN IVP Nausea & Vomiting 07/02/18 21:45 08/01/18 21:44 Pantoprazole (Protonix) 40 mg DAILY IV 07/03/18 09:00 07/31/18 08:59 07/07/18 08:16 Polyethylene Glycol (Miralax) 17 gm BEDTIME GT 07/02/18 21:00 08/01/18 20:59 07/06/18 21:07 Vancomycin HCl (Vanco rx to dose) 1 ea DAILY PRN MISC Per rx protocol 07/03/18 18:30 08/02/18 18:29 Rebecca Preston MD Jul 07, 2018 18:40
[2018-07-07 20:00] VITALS: BP 137/56
[2018-07-07] MEDS: cefTRIAXone 1 GM in D5W 50 ML IVPB SCH (20:33)
[2018-07-07] MEDS: Epogen (for ESRD on dialysis) SUBQ SCH (20:33)
[2018-07-07] MEDS: Miralax 17gm pkt GT SCH (20:35)
[2018-07-08] VITALS: BP 132/58
[2018-07-08 04:00] VITALS: BP 137/79
[2018-07-08 06:34] LABS: BASOPHILS % (AUTO) 1.8 % (0.0-2.0); EOSINOPHILS % (AUTO) 5.5 % (0.0-3.0); HEMATOCRIT 27.9 % (37.0-47.0); HEMOGLOBIN 9.6 G/DL (12.0-16.0); LYMPHOCYTES % (AUTO) 7.8 % (20.0-45.0); MEAN CORPUSCULAR VOLUME 96 FL (80-99); MONOCYTES % (AUTO) 9.4 % (1.0-10.0); NEUTROPHILS % (AUTO) 75.6 % (45.0-75.0); PLATELET COUNT 155 K/UL (150-450); RED CELL DISTRIBUTION WIDTH 13.2 % (11.6-14.8); WHITE BLOOD COUNT 5.1 K/UL (4.8-10.8)
[2018-07-08 07:03] LABS: BLOOD UREA NITROGEN 104 mg/dL (7-18); CALCIUM 8.4 MG/DL (8.5-10.1); CHLORIDE 94 MMOL/L (98-107); CREATININE 4.1 MG/DL (0.55-1.30); POTASSIUM 4.5 MMOL/L (3.5-5.1); SODIUM 129 MMOL/L (136-145)
[2018-07-08 08:00] VITALS: BP 130/58
[2018-07-08 08:07] LABS: CARBON DIOXIDE 21 MMOL/L (21-32)
--- NOTE | 2018-07-08 08:26 | General Progress Note ---
Assessment/Plan Assessment/Plan # Thrombocytopenia -- medication, infection or liver related, noted to have SPLENOMEGALY, also with sepsis and positive blood cultures on abx as per id --> hepatitis negative and hiv is pending --> CT of the a/p reviewed and shows SPLENOMEGALY --> slowly downtrending, transfuse if plt <20k --> ID recs appreciated # 2.5 centimeter right renal mass -- renal function is poor to begin with and she is elderly and debilitated with multiple medical issues. per uro recommends close surveillance of the mass to begin with. --> agree with urology recommendations for surveillance and q6-12mo imaging and if larger act at that time --> no hydronephrosis is noted --> would not recommend tumor markers at this time --> no further imaging indicated # Anemia of chronic disease -- anemia panel has been reviewed --> no evidence of hemolysis is noted --> hgb goal >7 # FTT - s/p gtube insertion --> peg tube feeds --> properly functioning # Diabetes # Coronary artery disease # Organic brain syndrome. She presents to the hospital with nausea and vomiting which is intractable. # Fecal impaction on CT scan Greatly appreciate consultation! Subjective Constitutional: Denies: no symptoms, chills, diaphoresis, fever, malaise, weakness, other HEENT: Denies: no symptoms, eye pain, blurred vision, tearing, double vision, ear pain, ear discharge, nose pain, nose congestion, throat pain, throat swelling, mouth pain, mouth swelling, other Cardiovascular: Denies: no symptoms, chest pain, edema, irregular heart rate, lightheadedness, palpitations, syncope, other Respiratory: Denies: no symptoms, cough, orthopnea, shortness of breath, SOB with excertion, SOB at rest, sputum, stridor, wheezing, other Gastrointestinal/Abdominal: Denies: no symptoms, abdomen distended, abdominal pain, black stools, tarry stools, blood in stool, constipated, diarrhea, difficulty swallowing, nausea, poor appetite, poor fluid intake, rectal bleeding , vomiting, other Genitourinary: Denies: no symptoms, burning, discharge, frequency, flank pain, hematuria, incontinence, pain, urgency, other Neurologic/Psychiatric: Denies: no symptoms, anxiety, depressed, emotional problems, headache, numbness, paresthesia, pre-existing deficit, seizure, tingling, tremors, weakness, other Endocrine: Denies: no symptoms, excessive sweating, flushing, intolerance to cold, intolerance to heat, increased hunger, increased thirst, increased urine, unexplained weight gain, unexplained weight loss, other Hematologic/Lymphatic: Denies: no symptoms, anemia, easy bleeding, easy bruising, other Allergies: Coded Allergies: No Known Allergies (Unverified , 05/11/18) Subjective No acute events. On abx. remains non-verbal. nodding yes and no. H/H stable. Objective Last 24 Hour Vital Signs Date Time Temp Pulse Resp B/P (MAP) Pulse Ox O2 Delivery O2 Flow Rate FiO2 07/08/18 04:00 97.4 62 18 137/79 (98) 98 97.4 07/08/18 00:00 97.3 58 18 132/58 (82) 94 97.3 07/07/18 21:00 Room Air 07/07/18 20:00 97.7 60 18 137/56 (83) 96 97.7 07/07/18 17:41 125/49 07/07/18 16:00 97.2 61 20 136/54 (81) 96 97.2 07/07/18 12:00 97.2 63 19 125/49 (74) 96 97.2 07/07/18 09:00 Room Air Intake and Output 07/07/18 07/08/18 19:00 07:00 Intake Total 510 ml 475 ml Balance 510 ml 475 ml Free Water 90 ml 90 ml Tube Feeding 420 ml 385 ml # Voids 2 # Bowel Movements 3 1 Laboratory Tests 07/08/18 06:00: White Blood Count 5.1, Red Blood Count 2.90L, Hemoglobin 9.6L, Hematocrit 27.9L , Mean Corpuscular Volume 96, Mean Corpuscular Hemoglobin 33.0H, Mean Corpuscular Hemoglobin Concent 34.2, Red Cell Distribution Width 13.2, Platelet Count 155, Mean Platelet Volume 5.6L, Neutrophils (%) (Auto) 75.6H, Lymphocytes (%) (Auto) 7.8L, Monocytes (%) (Auto) 9.4, Eosinophils (%) (Auto) 5.5H, Basophils (%) (Auto) 1.8, Sodium Level 129L, Potassium Level 4.5, Chloride Level 94L, Carbon Dioxide Level 21, Blood Urea Nitrogen 104H, Creatinine 4.1H, Estimat Glomerular Filtration Rate , Glucose Level 164H, Calcium Level 8.4L Height (Feet): 5 Height (Inches): 4.00 Weight (Pounds): 152 General Appearance: alert EENT: TMs normal Neck: supple Cardiovascular: regular rhythm Respiratory/Chest: lungs clear Abdomen: no organomegaly Extremities: non-tender Edema: 1+ Leg (L), 1+ Leg (R) Edema: mild edema Neurologic: alert Blayne Carroll MD Jul 08, 2018 08:26
[2018-07-08] MEDS: Minoxidil 2.5mg tab GT SCH ×2 (09:00→17:09)
[2018-07-08] MEDS: Pantoprazole Inj IV SCH (09:00)
[2018-07-08 12:00] VITALS: BP 148/58
[2018-07-08] MEDS ORDERED: Heparin 1000 units/ml 1ml Vial INJ SCH (12:00)
[2018-07-08] MEDS ORDERED: Heparin Sod 1000 units/ml 10ml IV SCH (12:00)
--- NOTE | 2018-07-08 13:29 | General Surgery Progress Note ---
General Surgery-Progress Note Subjective Additional Comments no acute events. labs noted. Cr elevated. Objective Last 24 Hour Vital Signs Date Time Temp Pulse Resp B/P (MAP) Pulse Ox O2 Delivery O2 Flow Rate FiO2 07/08/18 09:00 Room Air 07/08/18 08:00 97.8 64 18 130/58 (82) 99 97.8 07/08/18 04:00 97.4 62 18 137/79 (98) 98 97.4 07/08/18 00:00 97.3 58 18 132/58 (82) 94 97.3 07/07/18 21:00 Room Air 07/07/18 20:00 97.7 60 18 137/56 (83) 96 97.7 07/07/18 17:41 125/49 07/07/18 16:00 97.2 61 20 136/54 (81) 96 97.2 I&O Intake and Output 07/07/18 07/08/18 19:00 07:00 Intake Total 510 ml 510 ml Balance 510 ml 510 ml Free Water 90 ml 90 ml Tube Feeding 420 ml 420 ml # Voids 2 # Bowel Movements 3 1 Dressing: other Wound: other Drains: other Cardiovascular: RSR Respiratory: clear Abdomen: soft, distended, present bowel sounds Extremities: other Laboratory Tests Test 07/08/18 06:00 White Blood Count 5.1 K/UL (4.8-10.8) Red Blood Count 2.90 M/UL (4.20-5.40) L Hemoglobin 9.6 G/DL (12.0-16.0) L Hematocrit 27.9 % (37.0-47.0) L Mean Corpuscular Volume 96 FL (80-99) Mean Corpuscular Hemoglobin 33.0 PG (27.0-31.0) H Mean Corpuscular Hemoglobin Concent 34.2 G/DL (32.0-36.0) Red Cell Distribution Width 13.2 % (11.6-14.8) Platelet Count 155 K/UL (150-450) Mean Platelet Volume 5.6 FL (6.5-10.1) L Neutrophils (%) (Auto) 75.6 % (45.0-75.0) H Lymphocytes (%) (Auto) 7.8 % (20.0-45.0) L Monocytes (%) (Auto) 9.4 % (1.0-10.0) Eosinophils (%) (Auto) 5.5 % (0.0-3.0) H Basophils (%) (Auto) 1.8 % (0.0-2.0) Sodium Level 129 MMOL/L (136-145) L Potassium Level 4.5 MMOL/L (3.5-5.1) Chloride Level 94 MMOL/L (98-107) L Carbon Dioxide Level 21 MMOL/L (21-32) Blood Urea Nitrogen 104 mg/dL (7-18) H Creatinine 4.1 MG/DL (0.55-1.30) H Estimat Glomerular Filtration Rate mL/min (>60) Glucose Level 164 MG/DL (74-106) H Calcium Level 8.4 MG/DL (8.5-10.1) L Plan Problems: (1) Stage 4 decubitus ulcer Assessment & Plan: Stage IV sacral decubitus ulcer in center of dark non- blanchable erythema with induration to sacrum (L)10.5cm x(W)12cm. full thickness wound at coccyx (L)1.5cm x 1.2cm x(D)1.5cm .Bone is palpable Medial L heel non-blanchable ,fluctuant with small maroon discoloration within borders. R heel boggy-red but slow to ekta. Plan: Cleanse wound with saline. Apply Hydrogel into wound.Swab non-blanchable areas with Cavilon wipe and cover with Large Biatain drsg Daily and prn. Please upgrade to P200 Air Fluidized mattress. Cavilon wipes to both heels and continue to off-load. (2) Fecal impaction Assessment & Plan: KUB reviewed. stable. no signs of large or small bowel obstruction. stool in colon / rectum having bm's. diet as tolerated via feeds no acute surgical intervention necessary stool softener (3) UTI (urinary tract infection) Assessment & Plan: Bacteremia etiology unknown possible from renal tumor? defer to available if needed thank you Justice Rajan Jul 08, 2018 13:29
--- NOTE | 2018-07-08 14:22 | GI Progress Note ---
Assessment/Plan Problems: (1) Gastrostomy tube dependent ICD Codes: Z93.1 - Gastrostomy status SNOMED: 602623017, 778367477 (2) Vomiting ICD Codes: R11.10 - Vomiting, unspecified SNOMED: 800398431 (3) Fecal impaction ICD Codes: K56.41 - Fecal impaction SNOMED: 82972931 (4) Hematemesis ICD Codes: K92.0 - Hematemesis SNOMED: 8811898 Status: stable Status Narrative Discussed with Dr. Taylor. Assessment/Plan CT AP reviewed >> severe fecal impaction, resolved. intractable N/V, resolved. no anemia okay for DC per GI standpoint GTFs per RD to goal, tolerating bowel regime stop mineral oil electrolyte correction ppi fu labs The patient was seen and examined at bedside and all new and available data was reviewed in the patients chart. I agree with the above findings, impression and plan. (Patient seen earlier today. Signature stamp does not reflect patient encounter time.). - Hilton Taylor MD Subjective Subjective limited Objective Last 24 Hour Vital Signs Date Time Temp Pulse Resp B/P (MAP) Pulse Ox O2 Delivery O2 Flow Rate FiO2 07/08/18 12:00 97.6 74 18 148/58 (88) 99 97.6 07/08/18 09:00 Room Air 07/08/18 08:00 97.8 64 18 130/58 (82) 99 97.8 07/08/18 04:00 97.4 62 18 137/79 (98) 98 97.4 07/08/18 00:00 97.3 58 18 132/58 (82) 94 97.3 07/07/18 21:00 Room Air 07/07/18 20:00 97.7 60 18 137/56 (83) 96 97.7 07/07/18 17:41 125/49 07/07/18 16:00 97.2 61 20 136/54 (81) 96 97.2 Intake and Output 07/07/18 07/08/18 19:00 07:00 Intake Total 510 ml 510 ml Balance 510 ml 510 ml Free Water 90 ml 90 ml Tube Feeding 420 ml 420 ml # Voids 2 # Bowel Movements 3 1 Laboratory Tests Test 07/08/18 06:00 White Blood Count 5.1 K/UL (4.8-10.8) Red Blood Count 2.90 M/UL (4.20-5.40) L Hemoglobin 9.6 G/DL (12.0-16.0) L Hematocrit 27.9 % (37.0-47.0) L Mean Corpuscular Volume 96 FL (80-99) Mean Corpuscular Hemoglobin 33.0 PG (27.0-31.0) H Mean Corpuscular Hemoglobin Concent 34.2 G/DL (32.0-36.0) Red Cell Distribution Width 13.2 % (11.6-14.8) Platelet Count 155 K/UL (150-450) Mean Platelet Volume 5.6 FL (6.5-10.1) L Neutrophils (%) (Auto) 75.6 % (45.0-75.0) H Lymphocytes (%) (Auto) 7.8 % (20.0-45.0) L Monocytes (%) (Auto) 9.4 % (1.0-10.0) Eosinophils (%) (Auto) 5.5 % (0.0-3.0) H Basophils (%) (Auto) 1.8 % (0.0-2.0) Sodium Level 129 MMOL/L (136-145) L Potassium Level 4.5 MMOL/L (3.5-5.1) Chloride Level 94 MMOL/L (98-107) L Carbon Dioxide Level 21 MMOL/L (21-32) Blood Urea Nitrogen 104 mg/dL (7-18) H Creatinine 4.1 MG/DL (0.55-1.30) H Estimat Glomerular Filtration Rate mL/min (>60) Glucose Level 164 MG/DL (74-106) H Calcium Level 8.4 MG/DL (8.5-10.1) L Height (Feet): 5 Height (Inches): 4.00 Weight (Pounds): 152 General Appearance: alert Cardiovascular: normal rate Respiratory/Chest: normal breath sounds, no respiratory distress Abdominal Exam: soft, GT site - c/d/i Charlene EllishTanya CHARGER OPERATOR HELPER Jul 08, 2018 14:21
--- NOTE | 2018-07-08 15:29 | Nephrology Progress Note ---
Assessment/Plan Plan ESRD - TTS. CHF - stable. Fecal impaction -resolved. Rt. newly diagnosed Renal Cell CA - Per no surgical intervention. Patient too high risk Is the Proteus sepsis coming from the Rt. Kidney? Blood cultures Proteus DW ID. DC to SNF Rocephine 1 GM IVPB x10 days Doxy 100 mg bid x 5 d Subjective Subjective Alert. No c/o. Confused. Objective Objective Last 24 Hour Vital Signs Date Time Temp Pulse Resp B/P (MAP) Pulse Ox O2 Delivery O2 Flow Rate FiO2 07/08/18 12:00 97.6 74 18 148/58 (88) 99 97.6 07/08/18 09:00 Room Air 07/08/18 08:00 97.8 64 18 130/58 (82) 99 97.8 07/08/18 04:00 97.4 62 18 137/79 (98) 98 97.4 07/08/18 00:00 97.3 58 18 132/58 (82) 94 97.3 07/07/18 21:00 Room Air 07/07/18 20:00 97.7 60 18 137/56 (83) 96 97.7 07/07/18 17:41 125/49 07/07/18 16:00 97.2 61 20 136/54 (81) 96 97.2 Intake and Output 07/07/18 07/08/18 19:00 07:00 Intake Total 510 ml 510 ml Balance 510 ml 510 ml Free Water 90 ml 90 ml Tube Feeding 420 ml 420 ml # Voids 2 # Bowel Movements 3 1 Laboratory Tests 07/08/18 06:00: White Blood Count 5.1, Red Blood Count 2.90L, Hemoglobin 9.6L, Hematocrit 27.9L , Mean Corpuscular Volume 96, Mean Corpuscular Hemoglobin 33.0H, Mean Corpuscular Hemoglobin Concent 34.2, Red Cell Distribution Width 13.2, Platelet Count 155, Mean Platelet Volume 5.6L, Neutrophils (%) (Auto) 75.6H, Lymphocytes (%) (Auto) 7.8L, Monocytes (%) (Auto) 9.4, Eosinophils (%) (Auto) 5.5H, Basophils (%) (Auto) 1.8, Sodium Level 129L, Potassium Level 4.5, Chloride Level 94L, Carbon Dioxide Level 21, Blood Urea Nitrogen 104H, Creatinine 4.1H, Estimat Glomerular Filtration Rate , Glucose Level 164H, Calcium Level 8.4L Height (Feet): 5 Height (Inches): 4.00 Weight (Pounds): 152 Objective CV RR Lungs CTA Abd SNT. BS +. PEG OK. E No CCE. GIANNI AVF + bruit. Raul Cannon MD Jul 08, 2018 15:29
[2018-07-08] MEDS ORDERED: MIRALAX17 GM GT (15:33)
[2018-07-08] MEDS ORDERED: LONITEN2.5 MG GT (15:33)
[2018-07-08] MEDS ORDERED: ACETAMINOPHEN650 MG RECTAL (15:33)
[2018-07-08] MEDS ORDERED: DOXYCYCLINE HY100 M2 ORAL (15:33)
[2018-07-08] MEDS ORDERED: METOCLOPRAM5 MG/1 M1 IVP (15:33)
[2018-07-08 16:00] VITALS: BP 143/58
[2018-07-08 17:09] VITALS: BP 143/58
[2018-07-08] MEDS: cefTRIAXone 1 GM in D5W 50 ML IVPB SCH (20:21)
[2018-07-08] MEDS: Miralax 17gm pkt GT SCH (20:22)
--- NOTE | 2018-07-10 14:20 | Discharge Summary ---
Discharge Summary Discharge Summary _ DATE OF ADMISSION: 06/30/2018 DATE OF DISCHARGE: 07/08/2018 REASON FOR ADMISSION: 72 years old female, [facility], with past medical history of end-stage renal disease on hemodialysis, type 2 diabetes mellitus, diabetic nephropathy, schizophrenia, congestive heart failure, COPD, sick sinus syndrome, hypothyroidism, had foamy vomiting episode and became short of breath. Patient was transferred to emergency department for further evaluation Upon evaluation vital signs appeared stable. No leukocytosis, stable hemoglobin and hematocrit. Urinalysis with possible evidence of UTI. Sodium 130 BUN 103, creatinine to 3.3 consistent with known history of end- stage renal disease. CT of the abdomen and pelvis revealed 2.5 cm right lower pole renal mass very concerning for renal malignancy. Evidence of rectal fecal impaction. Chest x-ray revealed cardiomegaly and bilateral interstitial edema with small pleural effusion. Patient admitted with diagnoses of GI bleeding, end-stage renal disease due to diabetic nephropathy, type 2 diabetes mellitus, schizophrenia, congestive heart failure, COPD, hypothyroidism, sick sinus syndrome,. CONSULTANTS: ID specialist Dr. Preston GI specialist honey blender/oncologist Dr. Carroll surgery Dr. Rajan urologist Dr. Eric [facility]: Patient admitted. Patient initially kept nothing by mouth. GI consult and urology consults were requested. Hemodialysis was initially postponed o until GI bleeding resolved. Vigorous bowel regimen instituted as per GI specialist. Patient was treated symptomatically with the antiemetics as needed. No evidence of anemia. Patient slowly started on tube feeding with strict aspiration precaution and advanced to goal rate as tolerated. Patient had bowel movement, Renal parameters, electrolytes were closely monitored and corrected as needed. Nephrotoxins were avoided. Patient was on GI prophylaxis with PPI. Urologist seen and evaluated the patient due to renal mass. Patient did not have symptoms from the mass. Patient - elderly and debilitated with multiple medical issues. Urologist recommended conservative amnageemtn with close surveillance of the mass. If the mass will rapidly enlarge within the next 6 months to a year , then consider heminephrectomy at that time. Patient started on empiric antibiotic. Infectious disease specialist closely followed. Blood culture initially revealed Staphylococcus coagulase negative and Staphylococcus hominis, repeated blood cultures showed Proteus, probably due to UTI. Staphylococcus coagulase negative blood culture were likely contaminant. as per ID specialist. Continue further antibiotic at the facility to complete the course as per ID recommendations. Wound care provided as per surgeon commendations for sacral decubitus ulcer stage IV , present on admission. Wounds did not look acutely infected and no surgical intervention was necessary at this time Pharmaceutical Salesperson / oncologist seen the patient for renal mass and anemia . Anemia workup revealed evidence of anemia of chronic disease. No evidence of hemolysis. Hemoglobin and hematocrit were closely monitored with goal to keep hemoglobin above 7. Patient was on Epogen. Stool for occult blood was negative. Thrombocytopenia was possibly due to medication, infection or liver related. Noted splenomegaly on imaging, also sepsis and positive blood culture. Hepatitis panel was negative, HIV status was negative. Platelets count was closely monitored and up to normal - 155 , prior to discharge. Patient stabilized and was ready for discharge back to [facility] for continuation of care FINAL DIAGNOSES: Sepsis with Proteus bacteremia Probable urinary tract infection Fecal impaction Upper GI bleeding /Hematemesis , likely due to fecal impaction Right renal mass Dysphagia G-tube dependent End-stage renal disease due to diabetic nephropathy , on hemodialysis Type 2 diabetes mellitus COPD Hypothyroidism Sick sinus syndrome Congestive heart failure -stable Schizophrenia Anemia of chronic disease Thrombocytopenia resolved Stage IV sacral decubitus ulcer present on admission DISCHARGE MEDICATIONS: See Medication Reconciliation list. DISCHARGE INSTRUCTIONS: Patient was discharged to the [facility]. Follow up with medical doctor at the facility. I have been assigned to dictate discharge summary for this account. I was not involved in the patient's management. Inocencia Lowry NP Jul 10, 2018 14:20
== END 2018-07-08 20:30 | DRG 871 ==
LOC: EDUNIT# 10:20 → EDBD 10:20 → EMR 11:47 → 2E 12:35 → EDBEDREQ 12:48 → 4E 07-02 20:48
PROC: 5A1D70Z Performance of Urinary Filtration, Intermittent, Less than 6 Hours Per Day (ICD-10-PCS; principal; 2018-07-05)
DX: A41.89 Other specified sepsis (principal); L89.154 Pressure ulcer of sacral region, stage 4; N18.6 End stage renal disease; K92.2 Gastrointestinal hemorrhage, unspecified; Z43.1 Encounter for attention to gastrostomy; I13.2 Hypertensive heart and chronic kidney disease with heart failure and with stage 5 chronic kidney disease, or end stage renal disease; N39.0 Urinary tract infection, site not specified; C64.1 Malignant neoplasm of right kidney, except renal pelvis; E11.21 Type 2 diabetes mellitus with diabetic nephropathy; F20.9 Schizophrenia, unspecified; I50.9 Heart failure, unspecified; J44.9 Chronic obstructive pulmonary disease, unspecified; I49.5 Sick sinus syndrome; E03.9 Hypothyroidism, unspecified; K56.41 Fecal impaction; E11.22 Type 2 diabetes mellitus with diabetic chronic kidney disease; Z99.2 Dependence on renal dialysis; I25.10 Atherosclerotic heart disease of native coronary artery without angina pectoris; R13.10 Dysphagia, unspecified; F09 Unspecified mental disorder due to known physiological condition; K80.20 Calculus of gallbladder without cholecystitis without obstruction; K44.9 Diaphragmatic hernia without obstruction or gangrene; D69.6 Thrombocytopenia, unspecified; D63.8 Anemia in other chronic diseases classified elsewhere; R62.7 Adult failure to thrive; Z79.4 Long term (current) use of insulin
CPT/HCPCS: 36415; 71045; 74018; 74177; 80048; 80053; 80202; 81003; 82270; 82607; 82728; 82746; 83540; 83550; 83690; 83735; 83970; 84100; 85007; 85025; 85044; 85384; 85610; 85730; 86703; 86705; 86709; 86803; 87040; 87081; 87086; 87181; 87340; 93005; 93306; 94664; 96360; 99285

== ENCOUNTER 2018-08-13 00:52 | Emergency (ER) | payer MEDICARE, OTHER ==
[~2018-08-13] VITALS: Ht 177.8 cm; Wt 65.8 kg
[~2018-08-13 00:52] MED LIST changes: +ACETAMINOPHEN650 MG RECTAL; +DOXYCYCLINE HY100 M2 ORAL; +LONITEN2.5 MG GT; +METOCLOPRAM5 MG/1 M1 IVP; +MIRALAX17 GM GT
[2018-08-13 01:02] VITALS: BP 174/72
--- NOTE | 2018-08-13 01:03 | Emergency Room Report ---
History of Present Illness General Chief Complaint: Malfunctioning Gastric Tube Source: Patient Present Illness HPI This is a 71-year-old female from [facility]. She has multiple medical problem. She presents with chief complaint of G-tube malfunction. Is leaking near the Jeromy valve. No trauma. No other complaint. No fever chills. History from the [facility] note. Allergies: Coded Allergies: No Known Allergies (Unverified , 05/11/18) Patient History Past Medical History: see triage record, old chart reviewed Past Surgical History: other Pertinent Family History: none Social History: Denies: smoking Last Menstrual Period: n/a Now: No Immunizations: other Reviewed Nursing Documentation: PMH: Agreed; PSxH: Agreed Nursing Documentation-PMH Past Medical History: No History, Except For Hx Cardiac Problems: No - ESRD, PNA, HYPOTHYROID, DYSPHAGIA, ANEMIA Hx Hypertension: Yes Hx Diabetes: Yes Hx Cancer: No Hx Gastrointestinal Problems: Yes Hx Dialysis: Yes - MWF 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 Review of Systems Eye: Denies: eye pain, blurred vision ENT: Denies: ear pain, nose congestion, throat swelling Respiratory: Denies: cough, shortness of breath Cardiovascular: Denies: chest pain, palpitations Gastrointestinal: Denies: abdominal pain, diarrhea, nausea, vomiting Musculoskeletal: Denies: back pain, joint pain Skin: Denies: rash Neurological: Denies: headache, numbness Endocrine: Denies: increased thirst, increased urine Hematologic/Lymphatic: Denies: easy bruising All Other Systems: negative except mentioned in HPI Physical Exam Vital Signs Date Time Temp Pulse Resp B/P (MAP) Pulse Ox O2 Delivery O2 Flow Rate FiO2 08/13/18 00:52 98.1 72 20 174/72 92 Room Air vitals with high blood pressure Sp02 EP Interpretation: reviewed, normal General Appearance: well appearing, no apparent distress, alert Head: normocephalic, atraumatic Eyes: bilateral eye PERRL, bilateral eye EOMI ENT: hearing grossly normal, normal pharynx Neck: full range of motion, supple, no meningismus Respiratory: chest non-tender, lungs clear, normal breath sounds Cardiovascular #1: regular rate, rhythm, no murmur Gastrointestinal: normal bowel sounds, non tender, no mass, no organomegaly, no bruit, non-distended, other - G-tube intact. There is a small leak at the port Musculoskeletal: back normal, normal range of motion Psychiatric: mood/affect normal Skin: warm/dry Procedures Additional Procedure Procedure Narrative Procedure: G-tube placement Indication: G-tube malfunction Description: I deflated the balloon and remove the old G-tube. I inserted another 20 Palestinian G-tube. Inflate the balloon with sterile water. Patient tolerated procedure without a problem. No complication. KUB ordered. Medical Decision Making Diagnostic Impression: Primary Impression: Malfunction of gastrostomy tube ER Course Patient with G-tube malfunction secondary to leak. No extravasation. We'll discharge home. Other X-Ray Diagnostic Results Other X-Ray Diagnostic Results : X-Ray ordered: KUB # of Views/Limited Vs Complete: 1 View Indication: Pain EP Interpretation: Yes Interpretation: no dislocation, no soft tissue swelling, no fractures, other - no extravasation Impression: No acute disease Electronically Signed by: Faisal Ellis MD Last Vital Signs Date Time Temp Pulse Resp B/P (MAP) Pulse Ox O2 Delivery O2 Flow Rate FiO2 08/13/18 00:52 98.1 72 20 174/72 92 Room Air Status: improved Disposition: XFER SNF Condition: Stable Patient Instructions: Gastrostomy Tube Home Guide, Adult Additional Instructions: Follow-up with your doctor in 7 days. Return if worse. Faisal Ellis MD Aug 13, 2018 01:03
[2018-08-13 01:32] VITALS: BP 168/56
[2018-08-13] MEDS ORDERED: Gastrograffin 30ml ORAL ONE (05:00)
--- NOTE | 2018-08-13 09:17 | Diagnostic Imaging Report ---
Indication: Status post gastrostomy replacement Technique: Supine view of the abdomen after injection of water-soluble contrast into gastrostomy Comparison: 07/03/2018 Findings: Contrast opacifies the stomach, duodenum, and proximal small bowel. Note that contrast opacification is somewhat suboptimal. No contrast extravasation is demonstrated. The bowel gas pattern is unremarkable. Impression: Satisfactory position of gastrostomy tube
== END 2018-08-13 01:35 ==
LOC: EDBD 00:52 → EMR 01:04
DX: K94.23 Gastrostomy malfunction (principal); Y83.3 Surgical operation with formation of external stoma as the cause of abnormal reaction of the patient, or of later complication, without mention of misadventure at the time of the procedure; Y92.129 Unspecified place in nursing home as the place of occurrence of the external cause; I12.0 Hypertensive chronic kidney disease with stage 5 chronic kidney disease or end stage renal disease; E11.22 Type 2 diabetes mellitus with diabetic chronic kidney disease; N18.6 End stage renal disease; E03.9 Hypothyroidism, unspecified
CPT/HCPCS: 43760; 74018; 99283; Q9963

== ENCOUNTER 2018-09-02 18:48 | Inpatient (IN) | payer MEDICARE, OTHER ==
[~2018-09-02] VITALS: Ht 167.6 cm; Wt 50.6 kg
[2018-09-02 19:10] VITALS: BP 167/103
[2018-09-02] MEDS ORDERED: Isovue-300 100ml vial INJ PRN (19:15)
[2018-09-02 20:01] LABS: BASOPHILS % (AUTO) 0.5 % (0.0-2.0); EOSINOPHILS % (AUTO) 2.7 % (0.0-3.0); HEMATOCRIT 37.7 % (37.0-47.0); HEMOGLOBIN 12.2 G/DL (12.0-16.0); LYMPHOCYTES % (AUTO) 9.9 % (20.0-45.0); MEAN CORPUSCULAR VOLUME 95 FL (80-99); MONOCYTES % (AUTO) 7.5 % (1.0-10.0); NEUTROPHILS % (AUTO) 79.4 % (45.0-75.0); PLATELET COUNT 204 K/UL (150-450); RED BLOOD COUNT 3.96 M/UL (4.20-5.40); RED CELL DISTRIBUTION WIDTH 14.3 % (11.6-14.8); WHITE BLOOD COUNT 8.4 K/UL (4.8-10.8)
[2018-09-02 20:11] LABS: ANION GAP 6 mmol/L (5-15); BLOOD UREA NITROGEN 64 mg/dL (7-18); CALCIUM 9.7 MG/DL (8.5-10.1); CARBON DIOXIDE 28 MMOL/L (21-32); CHLORIDE 98 MMOL/L (98-107); CREATININE 2.4 MG/DL (0.55-1.30); POTASSIUM 4.3 MMOL/L (3.5-5.1); SODIUM 132 MMOL/L (136-145)
[2018-09-02 20:16] LABS: ALANINE AMINOTRANSFERASE 19 U/L (12-78); ALBUMIN 2.9 G/DL (3.4-5.0); ALBUMIN/GLOBULIN RATIO 0.5 (1.0-2.7); ALKALINE PHOSPHATASE 142 U/L (46-116); ASPARTATE AMINO TRANSFERASE 18 U/L (15-37); BILIRUBIN,TOTAL 0.6 MG/DL (0.2-1.0)
[2018-09-02] MEDS ORDERED: Acetaminophen 500mg (ES) tab ORAL PRN ×2 (22:00)
[2018-09-02] MEDS ORDERED: Acetaminophen 650 MG SUPP RECTAL PRN (22:00)
[2018-09-02] MEDS ORDERED: Metoclopramide 10mg/2ml Inj IVP PRN (22:00)
[2018-09-02] MEDS ORDERED: Albuterol/Ipratropium 3ml neb HHN PRN (22:15)
--- NOTE | 2018-09-02 22:48 | Emergency Room Report ---
History of Present Illness General Chief Complaint: Edema Source: EMS Present Illness HPI 72-year-old presents ED for evaluation. Coming from senior care facility with swelling to the right side of her neck. Notes by nursing staff today. Unclear how long it is been there. Patient is nonverbal at baseline. No reported trauma. No fevers or chills. History of end-stage renal disease on dialysis. Unable to provide any additional history at this time. No other aggravating relieving factors. 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 hard. nonfluctuant Respiratory: chest non-tender, lungs clear, normal breath sounds, speaking full sentences Cardiovascular #1: regular rate, rhythm, no edema Gastrointestinal: normal inspection Rectal: deferred Genitourinary: no CVA tenderness Musculoskeletal: normal inspection Neurologic: other - nonverbal Psychiatric: other - nonverbal Skin: normal inspection Lymphatic: normal inspection Medical Decision Making Diagnostic Impression: Primary Impression: Parotitis, acute Additional Impression: End stage renal disease on dialysis ER Course Hospital Course 72-year-old female presents to ED with swelling to neck Differential diagnoses include: Cellulitis, abscess, parotitis Clinical course Patient placed on stretcher. After initial history and physical I ordered labs , UA, CT Head and CT Facial Bones labs reviewed -no leukocytosis, Hb/Hct stable, BUN/Cr elevated CT Head - no acute process CT Facial bones - parotits. no abscess antibiotics given. Case discussed with Dr Max and he agreed to accept the patient to his service for further care and support Diagnosis - parotits, ESRD on dialysis Patient admitted to floor in serious condition Labs Test 09/02/18 19:50 White Blood Count 8.4 K/UL (4.8-10.8) Red Blood Count 3.96 M/UL (4.20-5.40) Hemoglobin 12.2 G/DL (12.0-16.0) Hematocrit 37.7 % (37.0-47.0) Mean Corpuscular Volume 95 FL (80-99) Mean Corpuscular Hemoglobin 30.8 PG (27.0-31.0) Mean Corpuscular Hemoglobin Concent 32.4 G/DL (32.0-36.0) Red Cell Distribution Width 14.3 % (11.6-14.8) Platelet Count 204 K/UL (150-450) Mean Platelet Volume 5.9 FL (6.5-10.1) Neutrophils (%) (Auto) 79.4 % (45.0-75.0) Lymphocytes (%) (Auto) 9.9 % (20.0-45.0) Monocytes (%) (Auto) 7.5 % (1.0-10.0) Eosinophils (%) (Auto) 2.7 % (0.0-3.0) Basophils (%) (Auto) 0.5 % (0.0-2.0) Sodium Level 132 MMOL/L (136-145) Potassium Level 4.3 MMOL/L (3.5-5.1) Chloride Level 98 MMOL/L (98-107) Carbon Dioxide Level 28 MMOL/L (21-32) Anion Gap 6 mmol/L (5-15) Blood Urea Nitrogen 64 mg/dL (7-18) Creatinine 2.4 MG/DL (0.55-1.30) Estimat Glomerular Filtration Rate mL/min (>60) Glucose Level 108 MG/DL (74-106) Lactic Acid Level 0.50 mmol/L (0.4-2.0) Calcium Level 9.7 MG/DL (8.5-10.1) Total Bilirubin 0.6 MG/DL (0.2-1.0) Aspartate Amino Transf (AST/SGOT) 18 U/L (15-37) Alanine Aminotransferase (ALT/SGPT) 19 U/L (12-78) Alkaline Phosphatase 142 U/L (46-116) Total Protein 8.5 G/DL (6.4-8.2) Albumin 2.9 G/DL (3.4-5.0) Globulin 5.6 g/dL Albumin/Globulin Ratio 0.5 (1.0-2.7) CT/MRI/US Diagnostic Results CT/MRI/US Diagnostic Results #1: Imaging Test Ordered: CT Head Impression no acute process CT/MRI/US Diagnostic Results #2: Imaging Test Ordered: CT Facial Bones w/ contrast Impression parotits. sialoadenitis. Last Vital Signs Date Time Temp Pulse Resp B/P (MAP) Pulse Ox O2 Delivery O2 Flow Rate FiO2 09/02/18 19:10 97.3 98 16 167/103 100 Room Air Status: improved Disposition: ADMITTED INPATIENT Condition: Serious Referrals: Raul Cannon MD (PCP) Yoni Stallings MD Sep 02, 2018 22:48
[2018-09-02 22:50] VITALS: BP 173/80
[2018-09-03 04:00] VITALS: BP 150/63
[2018-09-03] MEDS ORDERED: Heparin Sod 1000 units/ml 10ml IV PRN (06:00)
[2018-09-03] MEDS ORDERED: Levothyroxine 125mcg tab GT SCH (06:30)
[2018-09-03 08:00] VITALS: BP 143/57
[2018-09-03] MEDS ORDERED: Heparin 5000 units/ml inj SUBQ SCH (09:00)
[2018-09-03] MEDS: Nephrovite tab (Rena-Vite) GT SCH (09:35)
[2018-09-03] MEDS: Minoxidil 2.5mg tab GT SCH ×2 (09:35→18:00)
[2018-09-03] MEDS: Heparin 5000 units/ml inj SUBQ SCH ×2 (09:45→21:47)
[2018-09-03] MEDS: Lomotil 2.5mg tab GT SCH ×2 (10:05→18:03)
[2018-09-03] MEDS: LORazepam 1mg tab GT SCH (10:06)
--- NOTE | 2018-09-03 10:10 | Diagnostic Imaging Report ---
Indication: Shortness of breath Technique: One view of the chest Comparison: Since 04/18/2018 Findings: Inspiration is suboptimal Bilateral interstitial prominence appears similar to the prior exam. The pleural spaces are probably clear. The heart is borderline enlarged Impression: Possible mild interstitial congestion, similar to prior study 07/06/2018. Correlate with clinical findings
--- NOTE | 2018-09-03 10:26 | Diagnostic Imaging Report ---
Indication: Pain, status post fall Technique: spiral acquisitions obtained through the brain. Angled axial and coronal 5 x 5 mm slices were reconstructed. No IV contrast utilized. Radiation dose was minimized using automated exposure control Total dose length product 1432.39 mGycm. CTDIvol(s) 70.38 mGy Comparison: none FINDINGS: No acute hemorrhage or edema. No mass effect or midline shift. There is age-related enlargement of the ventricles and extra axial CSF spaces. There is periventricular deep white matter ischemic change. Normal cameron-white differentiation. Visualized orbits are unremarkable. Visualized sinuses are unremarkable. Intact calvarium. There is minimal mastoid disease on the right. IMPRESSION: Chronic and age-related changes. Negative for acute intracranial bleed or mass effect Minimal right mastoid disease This agrees with the preliminary interpretation provided overnight by Dr. Davidson The CT scanner at [facility] is accredited by the [employer] and the scans are performed using protocols designed to limit radiation exposure to as low as reasonably achievable to attain images of sufficient resolution adequate for diagnostic evaluation
--- NOTE | 2018-09-03 10:32 | Diagnostic Imaging Report ---
Indication: Right jaw and facial swelling, recent trauma with head trauma Technique: Spiral acquisitions obtained through the Multiplanar reconstructions were generated. Total dose length product 650.73 mGycm. CTDIvol(s) 28.19 mGy. Radiation dose was minimized using automated exposure control Comparison: none Findings: There is asymmetric enlargement of the right parotid gland. It is also somewhat heterogeneous. There is increased attenuation of the overlying subcutaneous fat. No focal fluid collections or other findings to suggest abscess. No definite calcifications or ductal dilatation. The left parotid gland and submandibular glands are unremarkable. There are prominent right greater than left submandibular lymph nodes. The sinuses are clear. The optic globes and retroseptal orbits are unremarkable. There is evidence of dental caries involving the first right maxillary molar. There is evidence of prior endodontal surgery involving the right first maxillary incisor. No acute fractures. 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 Vascular structures are otherwise unremarkable. Impression: Asymmetric enlargement of the right parotid gland, consistent with sialadenitis, nonspecific as regards etiology. No evidence of associated abscess or calculi. Prominent right greater than left submandibular lymph nodes, probably reactive Evidence of dental disease, as described This essentially agrees with the preliminary interpretation provided overnight by Dr. Davidson The CT scanner at [facility] is accredited by the [employer] and the scans are performed using protocols designed to limit radiation exposure to as low as reasonably achievable to attain images of sufficient resolution adequate for diagnostic evaluation.
[2018-09-03 12:00] VITALS: BP 147/67
--- NOTE | 2018-09-03 14:05 | General Progress Note ---
Assessment/Plan Problem List: (1) Diabetes ICD Codes: E11.9 - Type 2 diabetes mellitus without complications SNOMED: 75131632 (2) Parotitis, acute ICD Codes: K11.21 - Acute sialoadenitis SNOMED: 7240008, 55072411 (3) End stage renal disease on dialysis ICD Codes: N18.6 - End stage renal disease; Z99.2 - Dependence on renal dialysis SNOMED: 929810199 Status: stable Assessment/Plan Parotis is being adequately treated with Clindamycin, will check within 48 hours , if not resolving will change to Cephalexin. Subjective Date patient seen: Sep 03, 2018 Time patient seen: 13:30 ROS Limited/Unobtainable: Yes Constitutional: Reports: other - unable to respond to questions HEENT: Reports: other - swelling right angle of mandible Allergies: Coded Allergies: No Known Allergies (Unverified , 05/11/18) Subjective I have been asked to eval the pt re right sided parotitis per ER admit 09/02/18. CT indicates parotitis, no mass. Started on Clindamycin. Objective Last 24 Hour Vital Signs Date Time Temp Pulse Resp B/P (MAP) Pulse Ox O2 Delivery O2 Flow Rate FiO2 09/03/18 12:00 96.8 70 16 147/67 (93) 98 70 09/03/18 09:37 65 151/63 09/03/18 09:35 151/63 09/03/18 09:00 Room Air Room Air 09/03/18 08:00 97.3 63 18 143/57 (85) 99 63 09/03/18 04:00 97.4 65 16 150/63 (92) 100 09/03/18 01:46 Room Air 09/03/18 01:45 Room Air 09/03/18 01:41 Room Air 09/03/18 01:36 Room Air 09/03/18 01:22 Room Air 09/02/18 23:00 97.5 87 18 173/80 98 Room Air 87 09/02/18 22:50 97.5 87 18 173/80 98 Room Air 09/02/18 19:10 97.3 98 16 167/103 100 Room Air 09/02/18 19:07 88 16 Room Air 09/02/18 18:39 97.3 88 16 188/84 93 Room Air Intake and Output 09/02/18 09/03/18 19:00 07:00 Intake Total 420 ml Balance 420 ml Intake Oral 0 ml Free Water 120 ml Tube Feeding 300 ml # Bowel Movements 3 Laboratory Tests 09/02/18 19:50: White Blood Count 8.4, Red Blood Count 3.96L, Hemoglobin 12.2, Hematocrit 37.7, Mean Corpuscular Volume 95, Mean Corpuscular Hemoglobin 30.8, Mean Corpuscular Hemoglobin Concent 32.4, Red Cell Distribution Width 14.3, Platelet Count 204, Mean Platelet Volume 5.9L, Neutrophils (%) (Auto) 79.4H, Lymphocytes (%) (Auto) 9.9L, Monocytes (%) (Auto) 7.5, Eosinophils (%) (Auto) 2.7, Basophils (%) (Auto ) 0.5, Sodium Level 132L, Potassium Level 4.3, Chloride Level 98, Carbon Dioxide Level 28, Anion Gap 6, Blood Urea Nitrogen 64H, Creatinine 2.4H, Estimat Glomerular Filtration Rate , Glucose Level 108H, Lactic Acid Level 0.50 , Calcium Level 9.7, Total Bilirubin 0.6, Aspartate Amino Transf (AST/SGOT) 18, Alanine Aminotransferase (ALT/SGPT) 19, Alkaline Phosphatase 142H, Total Protein 8.5H, Albumin 2.9L, Globulin 5.6, Albumin/Globulin Ratio 0.5L Height (Feet): 5 Height (Inches): 6.00 Weight (Pounds): 111 General Appearance: lethargic, mild distress, other - receiving dialysis as I was seeing her. EENT: other - swelling right parotid 4cm x 3 cm-maked with ink so can compare to see if getting smalller at my next visit. Dany Nieto MD Sep 03, 2018 14:05
--- NOTE | 2018-09-03 16:30 | History and Physical Report ---
DATE OF ADMISSION: 09/02/2018 CHIEF COMPLAINT: Right behind jaw swelling and pain. HISTORY OF PRESENT ILLNESS: This is a 72-year-old female home from a [facility]. I was called last night by the nursing staff. The patient developed swelling and pain behind the right jaw. The patient was sent to the ER. Initial workup including CT scan raises suspicion of parotid mass versus parotitis. The patient was admitted for further evaluation and management. PAST MEDICAL HISTORY: 1. End-stage renal failure on dialysis. 2. Type 2 diabetes mellitus. 3. Hypertensive cardiovascular disease. 4. Organic brain syndrome. 5. Schizophrenia. 6. Hypothyroidism. MEDICATIONS: Tylenol as needed, amlodipine, DuoNeb inhalation, Synthroid, lorazepam as needed, Reglan as needed, minoxidil, and Nephro-Ash. ALLERGIES: No known drug allergies. FAMILY HISTORY: Unable to obtain, the patient is confused. SOCIAL HISTORY: Unable to obtain, the patient is confused. REVIEW OF SYSTEMS: Unable to obtain, the patient is confused. PHYSICAL EXAMINATION: GENERAL: This is an elderly cachectic female, who is in no acute distress. VITAL SIGNS: Blood pressure 150/63, pulse 65 regular, respirations 16, temperature is 97.4, axillary. HEENT: Head is generally normocephalic except right retroauricular area which shows right parotid swelling and tenderness. There was otherwise no lymphadenopathy or thyromegaly. There were no carotid bruits. There was no venous clot. There was no jugular venous distention. LUNGS: Clear to auscultation and percussion. HEART: Regular rate and rhythm without rubs, murmurs, or gallops. ABDOMEN: Soft and nontender. She has a G-tube. EXTREMITIES: No clubbing, cyanosis, or edema. She has a left upper arm AV fistula. NEUROLOGIC: She is alert and oriented x2. Cranial nerves II through XII intact. LABORATORY AND ANCILLARY DATA: CBC within normal limits. Serum chemistry, sodium 132, potassium 4.3, BUN 64, creatinine 2.4, alkaline phosphatase 142, albumin 2.9. IMAGING STUDIES: CT scan of the head, no acute process. CT of facial bones parotitis, no abscesses. ASSESSMENT: Suspected right parotitis. PLAN: 1. IV antibiotics. 2. ENT consult. 3. Continue home medications. 4. Hemodialysis. Raul Cannon M.D. DR: Gisell JOB#: [id number] CC:
[2018-09-03 16:35] VITALS: BP 112/52
[2018-09-03 20:00] VITALS: BP 135/59
[2018-09-03] MEDS: Miralax 17gm pkt GT SCH (21:45)
[2018-09-04] VITALS: BP 142/58
[2018-09-04 04:00] VITALS: BP 146/72
[2018-09-04 08:00] VITALS: BP 145/56
[2018-09-04] MEDS: Nephrovite tab (Rena-Vite) GT SCH (08:26)
[2018-09-04] MEDS: Lomotil 2.5mg tab GT SCH ×2 (08:27→17:12)
[2018-09-04] MEDS: Minoxidil 2.5mg tab GT SCH ×2 (08:27→17:12)
[2018-09-04] MEDS: Heparin 5000 units/ml inj SUBQ SCH ×2 (08:32→23:06)
--- NOTE | 2018-09-04 08:53 | Nephrology Progress Note ---
Assessment/Plan Plan Acute Parotitis on IV Abx. Seen by ENT. ESRD HD tomorrow. Subjective Subjective No new c/o. Confused. Objective Objective Last 24 Hour Vital Signs Date Time Temp Pulse Resp B/P (MAP) Pulse Ox O2 Delivery O2 Flow Rate FiO2 09/04/18 08:27 145/56 09/04/18 08:27 60 145/56 09/04/18 04:00 97.4 70 16 146/72 (96) 98 09/04/18 00:00 97.0 66 16 142/58 (86) 95 09/03/18 21:00 Room Air Room Air 09/03/18 20:00 97.7 70 16 135/59 (84) 99 09/03/18 19:00 69 18 Room Air 21 09/03/18 18:00 112/52 09/03/18 16:35 97.7 68 18 112/52 (72) 98 68 09/03/18 12:00 96.8 70 16 147/67 (93) 98 70 09/03/18 09:37 65 151/63 09/03/18 09:35 151/63 09/03/18 09:00 Room Air Room Air Intake and Output 09/03/18 09/04/18 18:59 06:59 Intake Total 2600 ml Output Total 2000 ml Balance 600 ml Free Water 100 ml Tube Feeding 500 ml Hemodialysis 2000 ml Output Hemodialysis UF 2000 ml Height (Feet): 5 Height (Inches): 6.00 Weight (Pounds): 111 Objective Rt. parotis erythema + swelling. CV RR Lungs CTA Abd SNT. BS + E No ROSEMARIEE Raul Cannon MD Sep 04, 2018 08:53
[2018-09-04 12:00] VITALS: BP 133/62
[2018-09-04 16:00] VITALS: BP 123/59
[2018-09-04 20:00] VITALS: BP 150/57
[2018-09-04] MEDS: Miralax 17gm pkt GT SCH (23:02)
[2018-09-05] VITALS: BP 147/60
[2018-09-05 04:00] VITALS: BP 161/94
[2018-09-05 06:20] LABS: HEMATOCRIT 32.6 % (37.0-47.0); HEMOGLOBIN 10.5 G/DL (12.0-16.0); MEAN CORPUSCULAR VOLUME 95 FL (80-99); PLATELET COUNT 203 K/UL (150-450); RED BLOOD COUNT 3.42 M/UL (4.20-5.40); RED CELL DISTRIBUTION WIDTH 14.4 % (11.6-14.8); WHITE BLOOD COUNT 9.6 K/UL (4.8-10.8)
[2018-09-05 06:37] LABS: ALANINE AMINOTRANSFERASE 14 U/L (12-78); ALBUMIN 2.6 G/DL (3.4-5.0); ALBUMIN/GLOBULIN RATIO 0.5 (1.0-2.7); ALKALINE PHOSPHATASE 136 U/L (46-116); ANION GAP 8 mmol/L (5-15); ASPARTATE AMINO TRANSFERASE 14 U/L (15-37); BILIRUBIN,TOTAL 0.6 MG/DL (0.2-1.0); BLOOD UREA NITROGEN 77 mg/dL (7-18); CALCIUM 9.2 MG/DL (8.5-10.1); CARBON DIOXIDE 29 MMOL/L (21-32); CHLORIDE 95 MMOL/L (98-107); PHOSPHORUS 2.9 MG/DL (2.5-4.9); POTASSIUM 5.3 MMOL/L (3.5-5.1); SODIUM 132 MMOL/L (136-145)
[2018-09-05 08:00] VITALS: BP 160/68
[2018-09-05] MEDS ORDERED: Heparin Sod 1000 units/ml 10ml IV ONE (09:00)
[2018-09-05] MEDS: Nephrovite tab (Rena-Vite) GT SCH (09:10)
[2018-09-05] MEDS: Minoxidil 2.5mg tab GT SCH (09:10)
[2018-09-05] MEDS: Lomotil 2.5mg tab GT SCH (09:11)
[2018-09-05] MEDS: Heparin 5000 units/ml inj SUBQ SCH (09:11)
[2018-09-05] MEDS: LORazepam 1mg tab GT SCH (09:11)
--- NOTE | 2018-09-05 09:46 | Nephrology Progress Note ---
Assessment/Plan Plan Acute Parotitis on IV Abx. Seen by ENT. ESRD HD today then SNF Subjective Subjective No new c/o. Confused. Objective Objective Last 24 Hour Vital Signs Date Time Temp Pulse Resp B/P (MAP) Pulse Ox O2 Delivery O2 Flow Rate FiO2 09/05/18 09:26 74 18 Room Air 21 09/05/18 09:10 160/68 09/05/18 09:10 71 160/68 09/05/18 08:00 96.8 71 19 160/68 (98) 93 09/05/18 04:00 97.4 74 18 161/94 (116) 95 09/05/18 00:00 97.9 66 19 147/60 (89) 96 09/04/18 21:00 Room Air Room Air 09/04/18 20:00 96.6 67 18 150/57 (88) 95 09/04/18 17:12 123/59 09/04/18 16:00 96.7 69 20 123/59 (80) 93 09/04/18 12:00 97.0 65 16 133/62 (85) 93 Intake and Output 09/04/18 09/05/18 18:59 06:59 Intake Total 800 ml 50 ml Balance 800 ml 50 ml Free Water 200 ml Tube Feeding 600 ml 50 ml Laboratory Tests 09/05/18 05:30: White Blood Count 9.6, Red Blood Count 3.42L, Hemoglobin 10.5L, Hematocrit 32.6L , Mean Corpuscular Volume 95, Mean Corpuscular Hemoglobin 30.6, Mean Corpuscular Hemoglobin Concent 32.1, Red Cell Distribution Width 14.4, Platelet Count 203, Mean Platelet Volume 5.7L, Neutrophils (%) (Auto) , Lymphocytes (%) ( Auto) , Monocytes (%) (Auto) , Eosinophils (%) (Auto) , Basophils (%) (Auto) , Differential Total Cells Counted 100, Neutrophils % (Manual) 86H, Lymphocytes % (Manual) 5L, Monocytes % (Manual) 5, Eosinophils % (Manual) 4H, Basophils % ( Manual) 0, Band Neutrophils 0, Platelet Estimate Adequate, Platelet Morphology Normal, Red Blood Cell Morphology Normal, Sodium Level 132L, Potassium Level 5.3H, Chloride Level 95L, Carbon Dioxide Level 29, Anion Gap 8, Blood Urea Nitrogen 77H, Creatinine 3.0H, Estimat Glomerular Filtration Rate , Glucose Level 167H, Calcium Level 9.2, Phosphorus Level 2.9, Total Bilirubin 0.6, Aspartate Amino Transf (AST/SGOT) 14L, Alanine Aminotransferase (ALT/SGPT) 14, Alkaline Phosphatase 136H, Total Protein 7.6, Albumin 2.6L, Globulin 5.0, Albumin/Globulin Ratio 0.5L Height (Feet): 5 Height (Inches): 6.00 Weight (Pounds): 111 Objective Rt. parotis erythema + swelling. CV RR Lungs CTA Abd SNT. BS + E No CCE Raul Cannon MD Sep 05, 2018 09:46
[2018-09-05 12:00] VITALS: BP 142/62
--- NOTE | 2018-09-07 09:50 | Discharge Summary ---
Discharge Summary Discharge Summary _ DATE OF ADMISSION: 09/02/2018 DATE OF DISCHARGE: 09/05/2018 REASON FOR ADMISSION: 72 years old female with past medical history of diabetes mellitus 2, hypertension, end-stage renal disease, on hemodialysis, organic brain syndrome, presented from the retirement facility for evaluation due to swelling on the right side of her neck, which was noted by nursing staff for 1 day. Patient by herself nonverbal and was unable to provide any information. No reported trauma. No reported fever or chills. Upon evaluation patient was afebrile, blood pressure was elevated 188/84. Laboratory workup revealed no leukocytosis, stable hemoglobin and hematocrit. BUN and creatinine were consistent with known history of end-stage renal disease. CT of the head revealed chronic and age-related changes. Negative for acute intracranial bleeding or mass effect. CT of the facial bones revealed asymmetric enlargement of the right parotid gland, consistent with sialadenitis, nonspecific as regards to etiology. No evidence of associated abscess or calculi. Prominent right greater than left submandibular lymph nodes, probably reactive Chest x-ray demonstrated possible mild interstitial congestion, similar to prior study 07/06/2018. Patient received initial antibiotic in ED and was subsequently admitted for further management with diagnoses of acute parotitis, intensive cardiovascular disease, end-stage renal disease on hemodialysis. CONSULTANTS: ENT specialist Dr. Nieto [facility] COURSE: Patient admitted and started on IV antibiotics. Blood cultures were negative. ENT specialist seen and evaluated patient recommended to continue with the IV antibiotics and follow-up as outpatient in few days. Blood pressure was managed with minoxidil and calcium channel sima. Home medications were continued. Hemodialysis was arranged with close monitoring of volumes and cardiorenal parameters. Bowel regimen instituted. Levothyroxine was continued. Patient clinically improved and was stable for discharge to retirement facility for continuation of care. FINAL DIAGNOSES: Acute right parotitis End-stage renal disease on hemodialysis Diabetes mellitus 2 Hypertensive cardiovascular disease Organic brain syndrome Hypothyroidism DISCHARGE MEDICATIONS: See Medication Reconciliation list. Continue antibiotic at the facility to complete the course of treatment DISCHARGE INSTRUCTIONS: Patient was discharged to the retirement facility. Follow up with medical doctor at the facility. I have been assigned to dictate discharge summary for this account. I was not involved in the patient's management. Inocencia Lowry NP Sep 07, 2018 09:50
== END 2018-09-05 16:02 | DRG 154 ==
LOC: EDBD 18:48 → EMR 19:46 → EDBEDREQ 21:46 → 4E 21:53 → EDBEDREQ 22:31
PROC: 5A1D70Z Performance of Urinary Filtration, Intermittent, Less than 6 Hours Per Day (ICD-10-PCS; principal; 2018-09-03)
DX: K11.21 Acute sialoadenitis (principal); N18.6 End stage renal disease; I13.11 Hypertensive heart and chronic kidney disease without heart failure, with stage 5 chronic kidney disease, or end stage renal disease; E11.22 Type 2 diabetes mellitus with diabetic chronic kidney disease; Z99.2 Dependence on renal dialysis; F09 Unspecified mental disorder due to known physiological condition; E03.9 Hypothyroidism, unspecified; F20.9 Schizophrenia, unspecified
CPT/HCPCS: 36415; 70450; 70488; 71045; 80053; 82962; 83605; 84100; 85007; 85025; 87040; 87081; 94664; 96365; 99285; S0077

== ENCOUNTER 2018-09-22 13:40 | Emergency (ER) | payer MEDICARE, OTHER ==
[~2018-09-22] VITALS: Ht 170.2 cm; Wt 63.5 kg
[2018-09-22 13:50] VITALS: BP 150/65
[2018-09-22] MEDS ORDERED: VITAMIN D1000 UNI1 GT (14:23)
--- NOTE | 2018-09-22 15:01 | Diagnostic Imaging Report ---
Indication: Post gastrostomy replacement Technique: Supine view of the abdomen after injection of water-soluble contrast into gastrostomy Comparison: none Findings: Contrast opacifies the stomach. No contrast extravasation is demonstrated. The bowel gas pattern is unremarkable. Impression: Satisfactory position of gastrostomy tube
--- NOTE | 2018-09-22 15:34 | Emergency Room Report ---
History of Present Illness General Chief Complaint: Malfunctioning Gastric Tube Source: Medical Record Present Illness HPI 72-year-old female presents ED for evaluation. Patient is here for G-tube replacement. Came out today at senior care facility. Unclear per nursing report as to whether patient pulled out her G-tube or it came out. Replace with Mckenzie catheter at facility. Upon arrival patient showing no signs of distress. Has organic brain syndrome and is nonverbal at baseline. No reported fevers or chills or nausea or vomiting. No other aggravating relieving factors. No other associated symptoms Allergies: Coded Allergies: No Known Allergies (Unverified , 05/11/18) Patient History Past Medical History: DM, HTN, renal disease, dialysis, other - organic brain syndrome Past Surgical History: none Social History: Denies: smoking, alcohol use, drug use Now: No Immunizations: UTD Reviewed Nursing Documentation: PMH: Agreed; PSxH: Agreed Nursing Documentation-PMH Past Medical History: No History, Except For Hx Cardiac Problems: No - anemia Hx Hypertension: Yes Hx Diabetes: Yes Hx Cancer: No Hx Gastrointestinal Problems: Yes Hx Dialysis: Yes - [facility] 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 Review of Systems All Other Systems: limited Physical Exam Vital Signs Date Time Temp Pulse Resp B/P (MAP) Pulse Ox O2 Delivery O2 Flow Rate FiO2 09/22/18 13:41 98.1 67 18 158/67 97 Room Air Sp02 EP Interpretation: reviewed, normal General Appearance: other - nonverbal Head: other - nonverbal Eyes: bilateral eye normal inspection, bilateral eye PERRL ENT: normal ENT inspection Neck: full range of motion Respiratory: chest non-tender, lungs clear, normal breath sounds, speaking full sentences Cardiovascular #1: regular rate, rhythm, no edema Gastrointestinal: normal bowel sounds, non tender, soft, non-distended, no guarding, no rebound Genitourinary: other - Gtube site C/D/I Musculoskeletal: normal inspection Neurologic: other - organic brain syndrome Psychiatric: other - nonverbal Skin: normal inspection Lymphatic: normal inspection Procedures Additional Procedure Procedure Narrative G-tube placement Patient placed on stretcher. Old G-tube is removed by deflating the balloon using syringe. G-tube site is inspected with no contraindications to G-tube placement. G-tube slowly inserted until resistance is met; G-tube balloon is slowly filled with 20 mL of normal saline and slowly retracted back until resistance is met. G-tube placement is confirmed with KUB study using Gastrografin Medical Decision Making Diagnostic Impression: Primary Impression: Malfunction of gastrostomy tube ER Course Hospital Course 72-year-old female presents to ED for G-tube replacement. Clinical course Patient placed on stretcher. After initial history and physical I replaced G- tube and inflate the balloon. G-tube placement confirmed with KUB study. Patient remained stable without any signs of distress. residential called and patient subsequently discharged back to facility. Dr Hudson made aware that G-tube was successfully replaced and patient return to facility Diagnosis - malfunction of G tube stable and discharged back to facility. Followup with PMD. Return to ED if symptoms recur or worsen Other X-Ray Diagnostic Results Other X-Ray Diagnostic Results : X-Ray ordered: KUB # of Views/Limited Vs Complete: 1 View Indication: Other - Gtube placement EP Interpretation: Yes Interpretation: nonspecific bowel gas, no sbo, other - Gtube in place with no extravasation of contrast Impression: Other - good Gtube placement Electronically Signed by: Electronically signed by Yoni Stallings MD Last Vital Signs Date Time Temp Pulse Resp B/P (MAP) Pulse Ox O2 Delivery O2 Flow Rate FiO2 09/22/18 13:50 98.3 62 16 150/65 98 Room Air Status: improved Disposition: XFER SNF Condition: Stable Referrals: Raul Cannon MD (PCP) Patient Instructions: Gastrostomy Tube Home Guide, Adult Yoni Stallings MD Sep 22, 2018 15:34
[2018-09-22 16:18] VITALS: BP 148/62
== END 2018-09-22 16:20 ==
LOC: EDBD 13:40 → EMR 14:21
DX: K94.23 Gastrostomy malfunction (principal); Y83.3 Surgical operation with formation of external stoma as the cause of abnormal reaction of the patient, or of later complication, without mention of misadventure at the time of the procedure; Y92.129 Unspecified place in nursing home as the place of occurrence of the external cause; I10 Essential (primary) hypertension; E11.9 Type 2 diabetes mellitus without complications; F09 Unspecified mental disorder due to known physiological condition
CPT/HCPCS: 43760; 74018; 99283; Q9963

== ENCOUNTER 2018-10-24 15:01 | Inpatient (IN) | payer MEDICARE, OTHER ==
[~2018-10-24] VITALS: Ht 165.1 cm; Wt 57.8 kg
[~2018-10-24 15:01] MED LIST changes: +PRO-STAT LIQUID30 ML GT; -PRO-STAT LIQUID30 ML ORAL; +VITAMIN D1000 UNI1 GT
[2018-10-24 15:15] VITALS: BP 134/65
--- NOTE | 2018-10-24 15:15 | NUR ---
ED Nurse Note: received report from WILIAM Ellis and assumed care, pt was [facility] from [facility] c/o bleeding at av shunt site at left upper arm. per ermd order pressure dressing applied, bleeding stopped. Pt AA&ox2-3, skin warm and dry, resp even and unlabored, LS=clear, abd soft nondistended, noted gtube intact, in diaper, unable to assess ambulatory gait. noted contusion on BUE, skin scab on nose and left forearm with pink granulation, pressure ulcer on coccyx area stg2 with erythema.NSR on athletic monitor, vSs, will cont monitor.
--- NOTE | 2018-10-24 15:47 | Emergency Room Report ---
History of Present Illness General Chief Complaint: General Complaint Source: Medical Record, EMS Present Illness HPI 73-year-old female presents ED for evaluation. Brought in by EMS. Patient was a dialysis session today and started bleeding from the fistula site. Dressing was applied. Upon arrival patient no signs of distress. No active bleeding. Dressing on fistula site. Patient is nonverbal at baseline. No signs of distress. Unable to provide any additional history at this time. No other aggravating relieving factors. No other associated symptoms Allergies: Coded Allergies: No Known Allergies (Unverified , 05/11/18) Patient History Past Medical History: DM, HTN, renal disease, dialysis Past Surgical History: none Pertinent Family History: none Social History: Denies: smoking, alcohol use, drug use Now: No Immunizations: UTD Reviewed Nursing Documentation: PMH: Agreed; PSxH: Agreed Nursing Documentation-PMH Hx Cardiac Problems: No - anemia Hx Hypertension: Yes Hx Diabetes: Yes Hx Cancer: No Hx Gastrointestinal Problems: Yes Hx Dialysis: Yes - [facility] 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 Review of Systems All Other Systems: limited Physical Exam Vital Signs Date Time Temp Pulse Resp B/P (MAP) Pulse Ox O2 Delivery O2 Flow Rate FiO2 10/24/18 14:54 97.2 90 19 136/57 98 Room Air Sp02 EP Interpretation: reviewed, normal General Appearance: no apparent distress, GCS 15, non-toxic, other - nonverbal Head: normocephalic Eyes: bilateral eye normal inspection, bilateral eye PERRL ENT: normal ENT inspection Neck: normal inspection Respiratory: chest non-tender, lungs clear, normal breath sounds, speaking full sentences Cardiovascular #1: regular rate, rhythm, no edema Gastrointestinal: normal bowel sounds, non tender, soft, non-distended, no guarding, no rebound Rectal: deferred Genitourinary: no CVA tenderness Musculoskeletal: other - LUE fistula no active bleeding. bruit detected Neurologic: other - nonverbal Psychiatric: other - nonverbal Skin: normal inspection Lymphatic: normal inspection Medical Decision Making Diagnostic Impression: Primary Impression: Hemorrhage of arteriovenous fistula Qualified Codes: T82.838A - Hemorrhage due to vascular prosthetic devices, implants and grafts, initial encounter Additional Impressions: Anemia Qualified Codes: D64.9 - Anemia, unspecified End stage renal disease on dialysis ER Course Hospital Course 73 yo F presents for evaluation of bleeding from AV fistula. patient pulled out the needle during dialysis session Differential diagnoses include: Bleeding AV fistula, anemia, coagulopathy Clinical course Patient placed on stretcher. After initial history, history reveals a elderly female no acute distress. Nonverbal. Dressing removed and there appears to be a AV fistula on the left upper extremity. No active bleeding. There is a palpable bruit. Vital stable. I ordered labs Labs- hemoglobin/hematocrit 8.8/27.7 BUN/Cr elevated, coags ok Hemoglobin in August was above 10. Patient will be admitted for serial hemoglobins area blood pressure stable. No active bleeding at this time. I see no reason for emergent transfusion Case discussed with PMD Dr. Hudson who agreed that patient does not require transfusion at this time but should be admitted for repeat lab work. Diagnosis - hemorrhage of AV fistula, anemia, ESRD on dialysis Admitted to floor in serious condition Labs Test 10/24/18 16:00 10/24/18 16:40 White Blood Count 9.7 K/UL (4.8-10.8) Red Blood Count 2.75 M/UL (4.20-5.40) Hemoglobin 8.8 G/DL (12.0-16.0) Hematocrit 27.7 % (37.0-47.0) Mean Corpuscular Volume 101 FL (80-99) Mean Corpuscular Hemoglobin 32.1 PG (27.0-31.0) Mean Corpuscular Hemoglobin Concent 31.9 G/DL (32.0-36.0) Red Cell Distribution Width 14.9 % (11.6-14.8) Platelet Count 240 K/UL (150-450) Mean Platelet Volume 6.5 FL (6.5-10.1) Neutrophils (%) (Auto) 83.3 % (45.0-75.0) Lymphocytes (%) (Auto) 7.4 % (20.0-45.0) Monocytes (%) (Auto) 6.9 % (1.0-10.0) Eosinophils (%) (Auto) 1.5 % (0.0-3.0) Basophils (%) (Auto) 0.9 % (0.0-2.0) Sodium Level 137 MMOL/L (136-145) Potassium Level 4.6 MMOL/L (3.5-5.1) Chloride Level 99 MMOL/L (98-107) Carbon Dioxide Level 27 MMOL/L (21-32) Anion Gap 11 mmol/L (5-15) Blood Urea Nitrogen 71 mg/dL (7-18) Creatinine 2.1 MG/DL (0.55-1.30) Estimat Glomerular Filtration Rate mL/min (>60) Glucose Level 193 MG/DL (74-106) Calcium Level 9.0 MG/DL (8.5-10.1) Total Bilirubin 0.6 MG/DL (0.2-1.0) Aspartate Amino Transf (AST/SGOT) 28 U/L (15-37) Alanine Aminotransferase (ALT/SGPT) 50 U/L (12-78) Alkaline Phosphatase 167 U/L (46-116) Total Protein 7.6 G/DL (6.4-8.2) Albumin 2.6 G/DL (3.4-5.0) Globulin 5.0 g/dL Albumin/Globulin Ratio 0.5 (1.0-2.7) Prothrombin Time 11.4 SEC (9.30-11.50) Prothromb Time International Ratio 1.1 (0.9-1.1) Activated Partial Thromboplast Time 32 SEC (23-33) Last Vital Signs Date Time Temp Pulse Resp B/P (MAP) Pulse Ox O2 Delivery O2 Flow Rate FiO2 10/24/18 14:54 97.2 90 19 136/57 98 Room Air Status: improved Disposition: ADMITTED INPATIENT Condition: Serious Referrals: Raul Cannon MD (PCP) Yoni Stallings MD Oct 24, 2018 15:47
--- NOTE | 2018-10-24 16:00 | NUR ---
7ED Nurse Note: pt had 1 bm, pt cleaned and changed into new gown, warm blanket provided for comfort.
[2018-10-24 16:08] LABS: BASOPHILS % (AUTO) 0.9 % (0.0-2.0); EOSINOPHILS % (AUTO) 1.5 % (0.0-3.0); HEMATOCRIT 27.7 % (37.0-47.0); HEMOGLOBIN 8.8 G/DL (12.0-16.0); LYMPHOCYTES % (AUTO) 7.4 % (20.0-45.0); MEAN CORPUSCULAR VOLUME 101 FL (80-99); MONOCYTES % (AUTO) 6.9 % (1.0-10.0); NEUTROPHILS % (AUTO) 83.3 % (45.0-75.0); PLATELET COUNT 240 K/UL (150-450); RED BLOOD COUNT 2.75 M/UL (4.20-5.40); RED CELL DISTRIBUTION WIDTH 14.9 % (11.6-14.8); WHITE BLOOD COUNT 9.7 K/UL (4.8-10.8)
[2018-10-24 16:22] LABS: ANION GAP 11 mmol/L (5-15); BLOOD UREA NITROGEN 71 mg/dL (7-18); CARBON DIOXIDE 27 MMOL/L (21-32); CHLORIDE 99 MMOL/L (98-107); CREATININE 2.1 MG/DL (0.55-1.30); POTASSIUM 4.6 MMOL/L (3.5-5.1); SODIUM 137 MMOL/L (136-145)
[2018-10-24 16:27] LABS: ALANINE AMINOTRANSFERASE 50 U/L (12-78); ALBUMIN 2.6 G/DL (3.4-5.0); ALBUMIN/GLOBULIN RATIO 0.5 (1.0-2.7); ALKALINE PHOSPHATASE 167 U/L (46-116); ASPARTATE AMINO TRANSFERASE 28 U/L (15-37); BILIRUBIN,TOTAL 0.6 MG/DL (0.2-1.0)
[2018-10-24 17:05] LABS: INR 1.1 (0.9-1.1)
[2018-10-24 17:28] VITALS: BP_SYST 103; BP_SYST 134; BP_DIAS 56; BP_DIAS 57
--- NOTE | 2018-10-24 17:37 | NUR ---
ED Nurse Note: attempted giving report to receiving nurse from [facility], nurse currently unavailable, discharging pt at this time. will try again.
--- NOTE | 2018-10-24 17:56 | NUR ---
ED Nurse Note: GAVE REPORT TO WILIAM BURGOS FROM [facility] TO CONTINUE CARE.
--- NOTE | 2018-10-24 18:00 | NUR ---
ED Nurse Note: PT transferred to [facility] floor, all belongings sent with pt. vss. airway intact. resp even and unlabored, no changes in neuro status.
--- NOTE | 2018-10-24 18:20 | NUR ---
nurse notes received patient from ED via dionisiorcindy, patient awake, alert x 2-3, no sign of distress,adm dx f bleeding left upper arm AV Fistula with good bruit nad thrill sound noted, dressing clean dry and intact, no active bleeding noted, v/s taken, repositioned patient for comfort and good circulation, will call PMD for admitting order kristine subramanian
[2018-10-24 18:30] VITALS: BP 115/56
[2018-10-24] MEDS ORDERED: Metoclopramide 10mg/2ml Inj IVP PRN (19:07)
[2018-10-24] MEDS ORDERED: LORazepam 1mg tab GT PRN (19:07)
[2018-10-24] MEDS ORDERED: Acetaminophen 650mg/20.3ml GT PRN (19:07)
--- NOTE | 2018-10-24 19:24 | NUR ---
HAND-OFF: Report given to Judith SWAIN , for contnuity of care kristine subramanian.
[2018-10-24 20:00] VITALS: BP 154/41
[2018-10-24] MEDS: Heparin 5000 units/ml inj SUBQ SCH ×2 (21:00→22:45)
[2018-10-24] MEDS: Minoxidil 2.5mg tab GT SCH (21:00)
[2018-10-24] MEDS ORDERED: Epoetin Alfa-EPBX(ESRD on dialysis)4000 units/ml vial SUBQ ONE (21:00)
[2018-10-24] MEDS: Miralax 17gm pkt GT SCH (22:44)
[2018-10-24] MEDS: Epogen (for non ESRD use) SUBQ SCH (22:47)
[2018-10-24] MEDS: NovoLOG Insulin Flexpen SUBQ SCH (22:47)
--- NOTE | 2018-10-24 22:59 | NUR ---
NURSE NOTES: not given heparin subcut as pt has diagnosis of L AV fistula bleeding.
[2018-10-25] VITALS: BP 137/55
[2018-10-25 04:00] VITALS: BP 125/58
[2018-10-25] MEDS: NovoLOG Insulin Flexpen SUBQ SCH ×4 (06:11→20:57)
[2018-10-25 06:39] LABS: ANION GAP 10 mmol/L (5-15); BLOOD UREA NITROGEN 88 mg/dL (7-18); CALCIUM 9.2 MG/DL (8.5-10.1); CARBON DIOXIDE 26 MMOL/L (21-32); CHLORIDE 99 MMOL/L (98-107); CREATININE 2.7 MG/DL (0.55-1.30); POTASSIUM 4.6 MMOL/L (3.5-5.1); SODIUM 135 MMOL/L (136-145)
[2018-10-25 06:41] LABS: HEMATOCRIT 25.1 % (37.0-47.0); HEMOGLOBIN 7.9 G/DL (12.0-16.0); MEAN CORPUSCULAR VOLUME 102 FL (80-99); PLATELET COUNT 222 K/UL (150-450); RED BLOOD COUNT 2.45 M/UL (4.20-5.40); RED CELL DISTRIBUTION WIDTH 15.3 % (11.6-14.8); WHITE BLOOD COUNT 8.6 K/UL (4.8-10.8)
--- NOTE | 2018-10-25 07:30 | NUR ---
NURSE NOTES: Received pt from WILIAM TUBBS. Pt is forgetful and oriented x3. No SOB or acute respiratory distress noted.pt has g tube in place is running well. pt has iv access RFA 22G SL. all needs attended, bed is locked and is in the lowest position. call light within easy reach. will continue to monitor.
[2018-10-25 08:00] VITALS: BP 114/52
[2018-10-25] MEDS: Nephrovite tab (Rena-Vite) GT SCH (08:44)
[2018-10-25] MEDS: Vitamin D 1000 IU Tab GT SCH (08:44)
[2018-10-25] MEDS: Minoxidil 2.5mg tab GT SCH ×2 (08:44→20:54)
[2018-10-25] MEDS: Heparin 5000 units/ml inj SUBQ SCH ×2 (08:45→20:55)
--- NOTE | 2018-10-25 09:29 | NUR ---
NURSE NOTES: HB 7.9, paged Dr watson waiting to call back. will continue to monitor.
--- NOTE | 2018-10-25 11:24 | NUR ---
RD ASSESSMENT & RECOMMENDATIONS SEE CARE ACTIVITY FOR COMPLETE ASSESSMENT DAILY ESTIMATED NEEDS: Needs based on ESRD/ HD, wound, wasting/ 48kg 30-35 kcals/kg 9239-5571 total kcals 1.25-1.8 g protein/kg 60-86 g total protein Fluid per MD, on HD mL/kg . 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 * Increased kcal/prot needs R/T wound healing, renal dysfunction as evidenced by pt admitted w/ sacral open wound, pending eval, w/ ESRD dx, on HD. CURRENT TF:NEPRO @ 75ml/hr x 15 hrs - excessive ENTERAL NUTRITION RECOMMENDATIONS: Nepro @ 42ml/hr x 22 hrs to provide 924ml, 1663kcal, 74g prot, 672ml free water * Change TF rate and run time to 43ml/hr x 22 hrs -> meets 100% est kcal/prot needs. * HOLD TF 1 hr before and after Synthroid med * HOB over 30 degrees/ water flush per MD ADDITIONAL RECOMMENDATIONS: * Calibrated bedscale wt for accurate CBW, obtain post HD for dry wt * Wound healing: add Zeke 1pkt BID (F/up w/ WC eval) * Monitor lytes daily * Consider long acting insulin for improved glycemic control
[2018-10-25 11:46] VITALS: BP 114/53
--- NOTE | 2018-10-25 13:57 | NUR ---
NURSE NOTES: Dr khan visited pt and he is aware about lab results and HB and HCT, no new order. will continue to monitor.
--- NOTE | 2018-10-25 14:51 | NUR ---
CASE MANAGEMENT: REVIEW 73/F BIBA FROM DIALYSIS CENTER CC: BLEEDING AV FISTULA LEFT UPPER ARM . PATIENT PULLED OUT THE NEEDLE DURING DIALYSIS SESSION SI: HEMORRHAGE OF AV FISTULA . ANEMIA T 97.2 HR 90 RR 19 BP 136/57 SAT 98% ROOM AIR H/H 8.8/27.7 BUN 71 CR 2.1 IS: NS FLUSH X1 INTERQUAL CRITERIA MET: PATIENT ADMITTED TO MED/SURG UNIT 10/24/2018 DCP: PATIENT IS FROM [facility]
[2018-10-25 16:00] VITALS: BP 117/64
[2018-10-25 20:00] VITALS: BP 122/56
--- NOTE | 2018-10-25 20:00 | History and Physical Report ---
DATE OF ADMISSION: 10/24/2018 CHIEF COMPLAINT: The patient pulled her two dialysis needles during the dialysis run. HISTORY OF PRESENT ILLNESS: This is a 73-year-old female, who is on dialysis every Saturday, Saturday, Saturday. During the run, the patient who is a schizophrenic, pulled her 2 needles during the dialysis run. She lost an unknown amount of blood. Out of concern that the patient had lost a large amount of blood, the patient was sent to this hospital's emergency department. In such cases, the lost blood is unmeasurable and the recommendation is to admit for observation. The patient is a poor historian due to her schizophrenia and makes it difficult to estimate how much blood she lost. PAST MEDICAL HISTORY: 1. End-stage renal failure, on dialysis every Saturday, Saturday, Saturday. 2. Schizophrenia. 3. Type 2 diabetes mellitus. 4. Hypothyroidism. MEDICATIONS: Tylenol p.r.n., amlodipine, vitamin D3, multivitamins, subcutaneous heparin, insulin aspart, Synthroid, Ativan, Reglan, minoxidil, MiraLAX, and Epogen or equivalent on dialysis. ALLERGIES: No known drug allergies. FAMILY HISTORY: Unable to obtain due to mental status. SOCIAL HISTORY: Unable to obtain due to mental status. REVIEW OF SYSTEMS: Unable to obtain due to mental status. PHYSICAL EXAMINATION: GENERAL: This is an elderly female who is bed ridden and confused. VITAL SIGNS: Blood pressure 114/53, pulse 67 and regular, respirations 17, and temperature is 97.7 oral. HEENT: She has oral thrush. NECK: Supple. Trachea midline. There is no lymphadenopathy or thyromegaly. LUNGS: Clear to auscultation and percussion. HEART: Regular rate and rhythm without rubs, murmurs, or gallops. ABDOMEN: Soft and nontender. Bowel sounds were active. She has a G-tube. EXTREMITIES: Notable for muscle wasting. She has right upper arm AV fistula. NEUROLOGIC: She is alert, but confused. There were no gross focal findings. LABORATORY AND ANCILLARY DATA: Initial hematocrit yesterday 27.7, today 25.1. Serum chemistry today is sodium 135, potassium 4.6, BUN 88, creatinine 2.7, and glucose 246. ASSESSMENT: 1. Blood loss during dialysis with drop in hemoglobin and hematocrit as expected. 2. End-stage renal failure, on dialysis every Saturday, Saturday, Saturday. 3. Schizophrenia. 4. Type 2 diabetes mellitus. 5. Hypothyroidism. PLAN: 1. Monitor hemoglobin and hematocrit. 2. Transfuse. 3. Hemodialysis, which is on Saturday in 2 days. 4. Epogen and intravenous iron. 5. Continue to monitor vital signs. Raul Cannon M.D. DR: NORIS JOB#: [id number] CC:
--- NOTE | 2018-10-25 20:01 | NUR ---
HAND-OFF: Report given to WILIAM ROJAS.
[2018-10-25] MEDS: Iron Sucrose 100 MG in NS 55 ML IV SCH (20:54)
[2018-10-25] MEDS: Miralax 17gm pkt GT SCH (20:54)
[2018-10-26] VITALS: BP 102/63
[2018-10-26 04:00] VITALS: BP 131/59
--- NOTE | 2018-10-26 05:19 | NUR ---
nurse's notes: received patient asleep; easily arousable, confused; no visible s/s of any pain, distress or shortness of breath. No active bleeding on the left AVF; bruit and thrill present. patient on GT feeding; no residual, tolerating well; GT noted to be clogged; declogging done; GT now patent; feeding restarted and to be turned off at 0200 as ordered; GT site dressing changed. Accuchecks done; insulin coverage given per SS. Noted sacral wound and right heel DTI; photos taken; dressing changed per order. repositioned every 2 hours and kept clean and dry. will continue to monitor.
[2018-10-26] MEDS: NovoLOG Insulin Flexpen SUBQ SCH ×4 (05:38→22:03)
[2018-10-26 06:58] LABS: HEMATOCRIT 22.2 % (37.0-47.0); HEMOGLOBIN 7.1 G/DL (12.0-16.0); MEAN CORPUSCULAR VOLUME 100 FL (80-99); PLATELET COUNT 225 K/UL (150-450); RED BLOOD COUNT 2.22 M/UL (4.20-5.40); RED CELL DISTRIBUTION WIDTH 14.6 % (11.6-14.8)
[2018-10-26 07:26] LABS: ANION GAP 11 mmol/L (5-15); BLOOD UREA NITROGEN 121 mg/dL (7-18); CALCIUM 9.1 MG/DL (8.5-10.1); CARBON DIOXIDE 25 MMOL/L (21-32); CHLORIDE 97 MMOL/L (98-107); CREATININE 3.6 MG/DL (0.55-1.30); SODIUM 133 MMOL/L (136-145)
--- NOTE | 2018-10-26 07:35 | NUR ---
NURSE NOTES: received report from WILIAM Bey. patient in bed. alert, awake, verbally responsive. no distress noted. no c/o pain at this time. bed in lowest position. call light within reach. continue to monitor.
[2018-10-26 08:00] VITALS: BP 129/60
[2018-10-26] MEDS: Nephrovite tab (Rena-Vite) GT SCH (09:28)
[2018-10-26] MEDS: Vitamin D 1000 IU Tab GT SCH (09:28)
[2018-10-26] MEDS: Minoxidil 2.5mg tab GT SCH ×2 (09:29→21:53)
[2018-10-26] MEDS: Heparin 5000 units/ml inj SUBQ SCH ×2 (09:30→22:04)
[2018-10-26 12:00] VITALS: BP 119/43
--- NOTE | 2018-10-26 12:19 | Nephrology Progress Note ---
Assessment/Plan Plan Worsening Anemia. Transfuse on HD tomorrow. Subjective Subjective Confused. NAD. Objective Objective Last 24 Hour Vital Signs Date Time Temp Pulse Resp B/P (MAP) Pulse Ox O2 Delivery O2 Flow Rate FiO2 10/26/18 09:29 129/60 10/26/18 09:29 68 129/60 10/26/18 09:00 Room Air 10/26/18 08:00 97.3 68 16 129/60 (83) 100 10/26/18 04:00 98.1 81 17 131/59 (83) 100 10/26/18 00:00 98.2 84 18 102/63 (76) 97 10/25/18 21:00 Room Air 10/25/18 20:54 122/56 10/25/18 20:00 98.1 80 17 122/56 (78) 97 10/25/18 16:00 98.2 79 18 117/64 (81) 99 Intake and Output 10/25/18 10/26/18 19:00 07:00 Intake Total 850 ml 1085 ml Balance 850 ml 1085 ml Intake Free Water 100 ml 200 ml IV Total 60 ml Tube Feeding 750 ml 825 ml # Bowel Movements 1 3 Laboratory Tests 10/26/18 05:45: White Blood Count 7.0, Red Blood Count 2.22L, Hemoglobin 7.1L, Hematocrit 22.2L , Mean Corpuscular Volume 100H, Mean Corpuscular Hemoglobin 31.8H, Mean Corpuscular Hemoglobin Concent 31.7L, Red Cell Distribution Width 14.6, Platelet Count 225, Mean Platelet Volume 5.9L, Neutrophils (%) (Auto) , Lymphocytes (%) (Auto) , Monocytes (%) (Auto) , Eosinophils (%) (Auto) , Basophils (%) (Auto) , Differential Total Cells Counted 100, Neutrophils % ( Manual) 76H, Lymphocytes % (Manual) 11L, Monocytes % (Manual) 9, Eosinophils % ( Manual) 4H, Basophils % (Manual) 0, Band Neutrophils 0, Platelet Estimate Adequate, Platelet Morphology Normal, Hypochromasia 1+, Anisocytosis 1+, Macrocytosis 1+, Sodium Level 133L, Potassium Level 5.0, Chloride Level 97L, Carbon Dioxide Level 25, Anion Gap 11, Blood Urea Nitrogen 121H, Creatinine 3.6H , Estimat Glomerular Filtration Rate , Glucose Level 200H, Calcium Level 9.1 Height (Feet): 5 Height (Inches): 3.00 Weight (Pounds): 128 Objective CV RR Cachechtic Lungs CTA Abd SNT. BS + PEG. E Maru. Raul Jarquin MD Oct 26, 2018 12:19
[2018-10-26] MEDS ORDERED: Heparin Sod 1000 units/ml 10ml IV PRN (12:30)
--- NOTE | 2018-10-26 12:50 | NUR ---
NURSE NOTES: scheduled HD on 10/27/2018 with [facility]. notified [facility] patient has order of transfusion during HD. spoke with Yvette. order noted and carried out.
--- NOTE | 2018-10-26 14:08 | NUR ---
NURSE NOTES: received call from blood bank. blood 1unit for transfusion on 10/27/2018 is ready. blood should be used until midnight 10/28/2018. spoke with Vince.
[2018-10-26 16:00] VITALS: BP 129/58
[2018-10-26] MEDS ORDERED: Tubing IV Secondary IV ONE (17:25)
[2018-10-26] MEDS ORDERED: Sterile Water Irrig 1000ml IRRIG ONE (17:25)
[2018-10-26] MEDS ORDERED: NS 275ml ONE (17:25)
--- NOTE | 2018-10-26 19:30 | NUR ---
HAND-OFF: Report given to WILIAM Gomez.
--- NOTE | 2018-10-26 19:45 | NUR ---
NURSE NOTES: Patient received in bed, awake, IV is intact on patent on RFA. L.arm shunt, no bleeding noted. GT intact, tolerating feeding, no residual. Bed locked in low position, HOB elevated. Will continue to monitor.
[2018-10-26 20:00] VITALS: BP 139/58
[2018-10-26] MEDS: Iron Sucrose 100 MG in NS 55 ML IV SCH (21:53)
[2018-10-26] MEDS: Miralax 17gm pkt GT SCH (21:53)
[2018-10-27] VITALS: BP 139/62
--- NOTE | 2018-10-27 | NUR ---
NURSE NOTES: Spoke to Dr. Cannon, he said ok to give Jesusita. Addendum: 10/28/18 at 0054 by LYDIA REID RN RN This note is for 10/27 22:40
[2018-10-27 04:00] VITALS: BP 147/62
[2018-10-27] MEDS: NovoLOG Insulin Flexpen SUBQ SCH ×3 (05:15→17:44)
[2018-10-27] MEDS ORDERED: Epoetin Alfa-EPBX(ESRD on dialysis)4000 units/ml vial SUBQ ONE (06:00)
--- NOTE | 2018-10-27 07:00 | NUR ---
NURSE NOTES: Attempted to contact patient's emergency contacts to get blood consent. Giorgi Hitchcock [phone], no answer, VMM left. Bogdan Archuleta, no answer, no VMM set up.
--- NOTE | 2018-10-27 07:21 | NUR ---
HAND-OFF: Report given to Magdiel SWAIN.
--- NOTE | 2018-10-27 07:41 | NUR ---
NURSE NOTES: Received pt from RN CLYDE. pt is forgetful and orient x2. No SOB or acute respiratory distress noted. pt has intact iv access RFA 22g SL. Pt has g tube in place is running well. all needs attended, bed is locked and is in the lowest position. call light within easy reach. will continue to monitor.
[2018-10-27 08:00] VITALS: BP 141/67
[2018-10-27 08:22] LABS: HEMATOCRIT 23.5 % (37.0-47.0); HEMOGLOBIN 7.5 G/DL (12.0-16.0); MEAN CORPUSCULAR VOLUME 101 FL (80-99); PLATELET COUNT 241 K/UL (150-450); RED BLOOD COUNT 2.34 M/UL (4.20-5.40); RED CELL DISTRIBUTION WIDTH 14.8 % (11.6-14.8); WHITE BLOOD COUNT 7.1 K/UL (4.8-10.8)
[2018-10-27] MEDS: Nephrovite tab (Rena-Vite) GT SCH (09:00)
[2018-10-27] MEDS: Minoxidil 2.5mg tab GT SCH ×2 (09:00→20:59)
[2018-10-27] MEDS: Heparin 5000 units/ml inj SUBQ SCH ×2 (09:00→21:01)
[2018-10-27 09:07] LABS: ANION GAP 14 mmol/L (5-15); BLOOD UREA NITROGEN 148 mg/dL (7-18); CALCIUM 9.1 MG/DL (8.5-10.1); CARBON DIOXIDE 23 MMOL/L (21-32); CHLORIDE 94 MMOL/L (98-107); CREATININE 4.2 MG/DL (0.55-1.30); POTASSIUM 5.4 MMOL/L (3.5-5.1); SODIUM 131 MMOL/L (136-145)
[2018-10-27] MEDS: Vitamin D 1000 IU Tab GT SCH (09:27)
--- NOTE | 2018-10-27 09:32 | NUR ---
NURSE NOTES: pt has schedule for dialysis today, BP meds didn't give at 9am. will continue to monitor.
--- NOTE | 2018-10-27 09:43 | NUR ---
NURSE NOTES: pt has order one pack cell unit during dialysis, called family member in the chart at 7 am, 8 am, 9 am, but no body answered, paged Dr watson, waiting to call back. will continue to monitor.
--- NOTE | 2018-10-27 10:05 | Nephrology Progress Note ---
Assessment/Plan Plan Worsening Anemia. Transfuse on HD today. Patient has no family, no DPOA. Signed for her transfusion Subjective Subjective Confused. NAD. Objective Objective Last 24 Hour Vital Signs Date Time Temp Pulse Resp B/P (MAP) Pulse Ox O2 Delivery O2 Flow Rate FiO2 10/27/18 08:00 97.1 71 18 141/67 (91) 97 10/27/18 04:00 97.3 77 17 147/62 (90) 99 10/27/18 00:00 97.4 78 17 139/62 (87) 99 10/26/18 21:53 138/59 10/26/18 21:00 Room Air 10/26/18 20:00 97.4 76 17 139/58 (85) 99 10/26/18 16:00 97.5 76 16 129/58 (81) 98 10/26/18 12:00 97.5 68 16 119/43 (68) 100 Intake and Output 10/26/18 10/27/18 19:00 07:00 Intake Total 750 ml 660 ml Balance 750 ml 660 ml Intake Free Water 150 ml 150 ml IV Total 60 ml Tube Feeding 600 ml 450 ml # Voids 1 # Bowel Movements 2 Laboratory Tests 10/27/18 06:11: White Blood Count 7.1, Red Blood Count 2.34L, Hemoglobin 7.5L, Hematocrit 23.5L , Mean Corpuscular Volume 101H, Mean Corpuscular Hemoglobin 32.0H, Mean Corpuscular Hemoglobin Concent 31.8L, Red Cell Distribution Width 14.8, Platelet Count 241, Mean Platelet Volume 5.7L, Neutrophils (%) (Auto) , Lymphocytes (%) (Auto) , Monocytes (%) (Auto) , Eosinophils (%) (Auto) , Basophils (%) (Auto) , Differential Total Cells Counted 100, Neutrophils % ( Manual) 79H, Lymphocytes % (Manual) 12L, Monocytes % (Manual) 6, Eosinophils % ( Manual) 3, Basophils % (Manual) 0, Band Neutrophils 0, Platelet Estimate Adequate, Platelet Morphology Normal, Hypochromasia 3+, Anisocytosis 1+, Macrocytosis 1+, Sodium Level 131L, Potassium Level 5.4H, Chloride Level 94L, Carbon Dioxide Level 23, Anion Gap 14, Blood Urea Nitrogen 148H, Creatinine 4.2H , Estimat Glomerular Filtration Rate , Glucose Level 177H, Calcium Level 9.1 Height (Feet): 5 Height (Inches): 3.00 Weight (Pounds): 128 Objective CV RR Cachechtic Lungs CTA Abd SNT. BS + PEG. Raul Andrade MD Oct 27, 2018 10:05
--- NOTE | 2018-10-27 10:25 | NUR ---
NURSE NOTES: Dr watson visited pt and he is aware about K no new order. and is aware we couldn't get consent for blood transfusion, he stated pt doesn't have any family member and he gave us consent for blood transfusion. will continue to monitor.
[2018-10-27 12:00] VITALS: BP 140/63
--- NOTE | 2018-10-27 14:25 | NUR ---
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 97.1 HR 64 RR 18 B/P 141/67 RA 96% H/H 7.5/23.5 NA 131 K 5.4 IS: IRON IV TRANSFUSE PRBC'S HD MED/SURG STATUS
[2018-10-27 16:00] VITALS: BP 149/63
--- NOTE | 2018-10-27 18:49 | NUR ---
blood transfusion started at 1730 during hemodialysis as order and finished at 1845, V/S checked q15min stable. no reaction noted. pt is stable. will continue to monitor.
--- NOTE | 2018-10-27 19:30 | NUR ---
NURSE NOTES: Patient in bed with ongoing dialysis, on room air, not in respiratory distress. With Gtube connected to feeding. Call light and needs in reach. Bed in lowest position, lock engaged and alarm on. Will continue to monitor.
--- NOTE | 2018-10-27 19:35 | NUR ---
HAND-OFF: pt is still on dialysis, pt is stable. Report given to WILIAM FREEMAN.
[2018-10-27 20:00] VITALS: BP 138/69
[2018-10-27] MEDS: Miralax 17gm pkt GT SCH (20:59)
[2018-10-27] MEDS: Iron Sucrose 100 MG in NS 55 ML IV SCH (21:00)
[2018-10-27] MEDS: Epogen (for non ESRD use) SUBQ SCH (21:02)
--- NOTE | 2018-10-27 22:08 | NUR ---
HAND-OFF: Report given to WILIAM Yo.
--- NOTE | 2018-10-27 22:09 | NUR ---
NURSE NOTES: patient received from Amara SWAIN. patient in no acute distress at this time. patient complains of no pain at this time. patient awake and alert x3. confused at times. IV intact and asymptomatic. call light within reach. bed in lowest position and locked. bed alarm on. will continue to monitor.
--- NOTE | 2018-10-27 22:22 | NUR ---
NURSE NOTES: Young made aware about non-administered Venofer due to recent blood transfusion. Pharmacist wants me to contact . Paged Dr. Cannon. Waiting for callback.
--- NOTE | 2018-10-27 22:38 | NUR ---
NURSE NOTES: Endorsed to Sanaz.
[2018-10-28] VITALS: BP 150/79
[2018-10-28] MEDS: Iron Sucrose 100 MG in NS 55 ML IV SCH ×2 (01:10→20:55)
[2018-10-28] MEDS: NovoLOG Insulin Flexpen SUBQ SCH ×5 (01:14→23:08)
[2018-10-28 04:00] VITALS: BP 124/54
--- NOTE | 2018-10-28 07:16 | NUR ---
HAND-OFF: Report given to kristine herrera.
--- NOTE | 2018-10-28 07:43 | NUR ---
NURSE NOTES: Received pt from WILIAM ORLANDO. Pt is oriented x2. No SOB or acute respiratory distress noted. pt has intact iv access RFA 22G SL. Pt has g tube in place is running well. all needs attended, bed is locked and is in the lowest position, call light within easy reach. will continue to monitor.
[2018-10-28 08:00] VITALS: BP 149/60
[2018-10-28] MEDS: Vitamin D 1000 IU Tab GT SCH (08:57)
[2018-10-28] MEDS: Minoxidil 2.5mg tab GT SCH ×2 (08:58→20:51)
[2018-10-28] MEDS: Nephrovite tab (Rena-Vite) GT SCH (08:58)
[2018-10-28] MEDS: Heparin 5000 units/ml inj SUBQ SCH ×2 (08:59→20:46)
--- NOTE | 2018-10-28 11:47 | NUR ---
NURSE NOTES: Dr watson visited pt and he is aware pt has wheezing and coughing, all orders noted and carried out. will continue to monitor.
--- NOTE | 2018-10-28 11:51 | Nephrology Progress Note ---
Assessment/Plan Plan s/p transfusion.Worsening Anemia. ESRD HD MWF+ HD Patient has no family, no DPOA. Signed for her transfusion SOB - see orders Subjective Subjective SOB, coughing. Objective Objective Last 24 Hour Vital Signs Date Time Temp Pulse Resp B/P (MAP) Pulse Ox O2 Delivery O2 Flow Rate FiO2 10/28/18 09:00 Room Air 10/28/18 08:58 149/60 10/28/18 08:57 68 149/60 10/28/18 08:00 98.0 68 20 149/60 (89) 100 10/28/18 04:00 97.7 71 19 124/54 (77) 99 10/28/18 00:00 98.1 93 18 150/79 (102) 97 10/27/18 21:00 Room Air 10/27/18 20:59 138/69 10/27/18 20:00 97.2 80 17 138/69 (92) 99 10/27/18 16:00 97.5 69 18 149/63 (91) 100 10/27/18 12:00 97.1 64 18 140/63 (88) 96 Intake and Output 10/27/18 10/28/18 19:00 07:00 Intake Total 775 ml 400 ml Balance 775 ml 400 ml Intake Free Water 100 ml 100 ml Tube Feeding 675 ml 300 ml # Bowel Movements 2 Height (Feet): 5 Height (Inches): 3.00 Weight (Pounds): 128 Objective CV RR Cachechtic Lungs B wheezes Abd SNT. BS + PEG. Raul Andrade MD Oct 28, 2018 11:51
[2018-10-28 12:00] VITALS: BP 136/66
[2018-10-28] MEDS ORDERED: Heparin Sod 1000 units/ml 10ml IV PRN (12:00)
[2018-10-28] MEDS: Albuterol/Ipratropium 3ml neb HHN PRN (12:00)
--- NOTE | 2018-10-28 12:30 | NUR ---
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 98.0 HR 68 RR 20 B/P 149/60 RA 98% IS: IRON IV NORVASC PO HEPARIN SUBC. HD MED/SURG STATUS
--- NOTE | 2018-10-28 13:35 | NUR ---
RADIOLOGY DEPT CHEST X-RAY DONE.-P.DYE
--- NOTE | 2018-10-28 14:12 | Diagnostic Imaging Report ---
Indication: Shortness of breath and cough Technique: One view of the chest Comparison: 09/02/2018 Findings: Suboptimal inspiration. The heart is enlarged. Lungs and pleural spaces are currently clear. Previously demonstrated interstitial congestive changes are no longer evident. Calcified granuloma projects in the right midlung Impression: Cardiomegaly. No definite acute process
[2018-10-28] MEDS: Guaifenesin/DM 10ml syrup GT PRN ×2 (14:18→23:45)
[2018-10-28 16:00] VITALS: BP 159/93
--- NOTE | 2018-10-28 16:02 | NUR ---
NURSE NOTES:NURSE NOTES:Pt presents with full thickness pressure injury to sacrum with scattered purple areas at base of wound ,(+) maceration along borders(L)3cm x (W)3.5cm. Non-blanchable erythema without induration periwound.Stable dry eschar R heel (L)1cm x (W01.2cm .Periwound without erythema or induration. L heel boggy,with non-blanchable erythema. Tx.Plan: Cleanse Sacral wound with Saline.Apply Hydrogel .Cavilon Skin Barrier periwound .Cover with Optifoam drsg. Change daily and prn. Apply Moisture Barrier to groin and Ischial areas with each perineal care. Apply Cavilon Skin Barrier to Both heels. Cover with heels with Optifoam Drsgs. Change every 7 days and prn. Reposition at least every 2hours or as tolerated. Off-load heels with pillow. Support Surface mattress.
--- NOTE | 2018-10-28 19:21 | NUR ---
HAND-OFF: Report given to WILIAM FREEMAN.
--- NOTE | 2018-10-28 19:30 | NUR ---
NURSE NOTES: Patient awake in bed, not in acute respiratory distress, no signs of pain. Call light and needs in reach. Bed in lowest position, lock engaged and alarm on. Will continue to monitor.
[2018-10-28 20:00] VITALS: BP 144/74
[2018-10-28] MEDS: Miralax 17gm pkt GT SCH (20:44)
[2018-10-29] VITALS: BP 147/62
--- NOTE | 2018-10-29 01:00 | NUR ---
NURSE NOTES: Patient was coughing and had 1 episode of vomiting. Feeding stopped. Put on high saxena's position. Reglan was given. Suction done. Linens and gown changed. Will monitor patient. Addendum: 10/29/18 at 0452 by LYDIA REID RN RN Charge nurse made aware.
[2018-10-29 04:00] VITALS: BP 143/66
[2018-10-29] MEDS: NovoLOG Insulin Flexpen SUBQ SCH ×4 (05:32→23:35)
[2018-10-29 06:43] LABS: HEMATOCRIT 27.8 % (37.0-47.0); HEMOGLOBIN 9.1 G/DL (12.0-16.0); MEAN CORPUSCULAR VOLUME 99 FL (80-99); PLATELET COUNT 247 K/UL (150-450); RED BLOOD COUNT 2.82 M/UL (4.20-5.40); RED CELL DISTRIBUTION WIDTH 15.9 % (11.6-14.8); WHITE BLOOD COUNT 9.4 K/UL (4.8-10.8)
[2018-10-29 07:11] LABS: ANION GAP 10 mmol/L (5-15); BLOOD UREA NITROGEN 101 mg/dL (7-18); CALCIUM 8.7 MG/DL (8.5-10.1); CARBON DIOXIDE 29 MMOL/L (21-32); CHLORIDE 95 MMOL/L (98-107); CREATININE 3.5 MG/DL (0.55-1.30); PHOSPHORUS 3.1 MG/DL (2.5-4.9); POTASSIUM 4.6 MMOL/L (3.5-5.1); SODIUM 134 MMOL/L (136-145)
--- NOTE | 2018-10-29 07:26 | NUR ---
HAND-OFF: Report given to WILIAM Hawkins.
[2018-10-29 08:00] VITALS: BP 140/62
--- NOTE | 2018-10-29 08:11 | NUR ---
NURSE NOTES: Patient alert to name,respirations are unlabored,G-tube feedings to restart at 11am.AV shunt to the left arm intact,no bleeding noted,strong bruit and thrill..Bed alarm is on,call light within reach.
[2018-10-29] MEDS: Minoxidil 2.5mg tab GT SCH ×2 (09:00→20:47)
[2018-10-29] MEDS: Nephrovite tab (Rena-Vite) GT SCH (09:55)
[2018-10-29] MEDS: Vitamin D 1000 IU Tab GT SCH (09:55)
[2018-10-29] MEDS: Heparin 5000 units/ml inj SUBQ SCH ×2 (09:56→20:48)
[2018-10-29] MEDS ORDERED: Tubing IV Secondary IV ONE (10:57)
[2018-10-29] MEDS ORDERED: NS 500ML ONE (10:57)
--- NOTE | 2018-10-29 11:02 | Nephrology Progress Note ---
Assessment/Plan Plan s/p transfusion.Worsening Anemia. ESRD HD MWF+ HD Patient has no family, no DPOA. Signed for her transfusion SOB - see orders. CXR CHF. Doing better. DC to SNF. Subjective Subjective Less SOB, Less coughing. On HD now Objective Objective Last 24 Hour Vital Signs Date Time Temp Pulse Resp B/P (MAP) Pulse Ox O2 Delivery O2 Flow Rate FiO2 10/29/18 09:00 Room Air 10/29/18 09:00 140/62 10/29/18 08:00 97.1 72 20 140/62 (88) 97 10/29/18 04:00 97.0 84 18 143/66 (91) 96 10/29/18 00:00 97.0 83 16 147/62 (90) 98 10/28/18 21:00 Room Air 10/28/18 20:51 144/74 10/28/18 20:16 77 20 Room Air 21 10/28/18 20:00 97.0 77 17 144/74 (97) 97 10/28/18 16:00 98.4 84 19 159/93 (115) 98 10/28/18 12:03 70 20 99 Room Air 21 10/28/18 12:00 69 20 98 Room Air 21 10/28/18 12:00 97.6 81 20 136/66 (89) 98 Intake and Output 10/28/18 10/29/18 19:00 07:00 Intake Total 825 ml 60 ml Balance 825 ml 60 ml IV Total 60 ml Tube Feeding 825 ml # Voids 2 3 # Bowel Movements 3 1 Laboratory Tests 10/29/18 05:50: White Blood Count 9.4, Red Blood Count 2.82L, Hemoglobin 9.1L, Hematocrit 27.8L , Mean Corpuscular Volume 99, Mean Corpuscular Hemoglobin 32.2H, Mean Corpuscular Hemoglobin Concent 32.6, Red Cell Distribution Width 15.9H, Platelet Count 247, Mean Platelet Volume 5.5L, Neutrophils (%) (Auto) , Lymphocytes (%) (Auto) , Monocytes (%) (Auto) , Eosinophils (%) (Auto) , Basophils (%) (Auto) , Differential Total Cells Counted 100, Neutrophils % ( Manual) 86H, Lymphocytes % (Manual) 7L, Monocytes % (Manual) 7, Eosinophils % ( Manual) 0, Basophils % (Manual) 0, Band Neutrophils 0, Platelet Estimate Adequate, Platelet Morphology Normal, Hypochromasia 1+, Anisocytosis 1+, Sodium Level 134L, Potassium Level 4.6, Chloride Level 95L, Carbon Dioxide Level 29, Anion Gap 10, Blood Urea Nitrogen 101H, Creatinine 3.5H, Estimat Glomerular Filtration Rate , Glucose Level 186H, Calcium Level 8.7, Phosphorus Level 3.1 Height (Feet): 5 Height (Inches): 3.00 Weight (Pounds): 127 Objective CV RR Cachechtic Lungs B wheezes Abd SNT. BS + PEG. E MRaul Marie MD Oct 29, 2018 11:01
--- NOTE | 2018-10-29 11:08 | Nephrology Progress Note ---
Assessment/Plan Plan s/p transfusion.Worsening Anemia. ESRD HD MWF+ HD Patient has no family, no DPOA. Signed for her transfusion SOB - see orders. CXR CHF. Labs reviewed again. BUN increasing despite adequate HD to >>100 and Hct is low again. Suspicious for GI bleed. GI called!!! Subjective Subjective Less SOB, Less coughing. On HD now Objective Objective Last 24 Hour Vital Signs Date Time Temp Pulse Resp B/P (MAP) Pulse Ox O2 Delivery O2 Flow Rate FiO2 10/29/18 09:00 Room Air 10/29/18 09:00 140/62 10/29/18 08:00 97.1 72 20 140/62 (88) 97 10/29/18 04:00 97.0 84 18 143/66 (91) 96 10/29/18 00:00 97.0 83 16 147/62 (90) 98 10/28/18 21:00 Room Air 10/28/18 20:51 144/74 10/28/18 20:16 77 20 Room Air 21 10/28/18 20:00 97.0 77 17 144/74 (97) 97 10/28/18 16:00 98.4 84 19 159/93 (115) 98 10/28/18 12:03 70 20 99 Room Air 21 10/28/18 12:00 69 20 98 Room Air 21 10/28/18 12:00 97.6 81 20 136/66 (89) 98 Intake and Output 10/28/18 10/29/18 19:00 07:00 Intake Total 825 ml 60 ml Balance 825 ml 60 ml IV Total 60 ml Tube Feeding 825 ml # Voids 2 3 # Bowel Movements 3 1 Laboratory Tests 10/29/18 05:50: White Blood Count 9.4, Red Blood Count 2.82L, Hemoglobin 9.1L, Hematocrit 27.8L , Mean Corpuscular Volume 99, Mean Corpuscular Hemoglobin 32.2H, Mean Corpuscular Hemoglobin Concent 32.6, Red Cell Distribution Width 15.9H, Platelet Count 247, Mean Platelet Volume 5.5L, Neutrophils (%) (Auto) , Lymphocytes (%) (Auto) , Monocytes (%) (Auto) , Eosinophils (%) (Auto) , Basophils (%) (Auto) , Differential Total Cells Counted 100, Neutrophils % ( Manual) 86H, Lymphocytes % (Manual) 7L, Monocytes % (Manual) 7, Eosinophils % ( Manual) 0, Basophils % (Manual) 0, Band Neutrophils 0, Platelet Estimate Adequate, Platelet Morphology Normal, Hypochromasia 1+, Anisocytosis 1+, Sodium Level 134L, Potassium Level 4.6, Chloride Level 95L, Carbon Dioxide Level 29, Anion Gap 10, Blood Urea Nitrogen 101H, Creatinine 3.5H, Estimat Glomerular Filtration Rate , Glucose Level 186H, Calcium Level 8.7, Phosphorus Level 3.1 Height (Feet): 5 Height (Inches): 3.00 Weight (Pounds): 127 Objective CV RR Cachechtic Lungs B wheezes Abd SNT. BS + PEG. Raul Andrade MD Oct 29, 2018 11:08
--- NOTE | 2018-10-29 12:04 | NUR ---
NURSE NOTES: Patient is receiving Dialysis at this time and ROMA yarn examiner skeins aware there is an Dialysis order by DR Cannon for 10/30/18.
[2018-10-29 12:21] VITALS: BP 131/66
--- NOTE | 2018-10-29 13:22 | NUR ---
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 * Increased kcal/prot needs R/T wound healing, renal dysfunction as evidenced by pt admitted w/ sacral full thickness open wound, w/ ESRD dx, on HD. CURRENT TF:NEPRO @ 75ml/hr x 15 hrs ENTERAL NUTRITION RECOMMENDATIONS: Nepro @ 42ml/hr x 22 hrs to provide 924ml, 1663kcal, 74g prot, 672ml free water, 149g carbs * Change TF rate and run time to 43ml/hr x 22 hrs -> meets 100% est kcal/prot needs. * HOLD TF 1 hr before and after synthroid meds * HOB over 30 degrees/ water flush per MD ADDITIONAL RECOMMENDATIONS: * Calibrated bedscale wt for accurate CBW, obtain post HD for dry wt * Wound healing: add Zeke 1pkt BID ->add Vit C per Nephro MD * Consider long acting insulin for improved glycemic control * Check lytes daily
--- NOTE | 2018-10-29 15:45 | GI Initial Consult Note ---
History of Present Illness General Date patient seen: Oct 29, 2018 Time patient seen: 15:37 Reason for Hospitalization: General Complaint Referring physician: RAUL READ Reason for Consultation: ANEMIA Present Illness HPI This is a 73-year-old female, who is on dialysis every Saturday, Saturday, Saturday. During the run, the patient who is a schizophrenic, pulled her 2 needles during the dialysis run. She lost an unknown amount of blood. Out of concern that the patient had lost a large amount of blood, the patient was sent to this hospital's emergency department. In such cases, the lost blood is unmeasurable and the recommendation is to admit for observation. The patient is a poor historian due to her schizophrenia and makes it difficult to estimate how much blood she lost. GI consulted for anemia, r/o GI bleed. ROS limited, patient seen currently on HD. Labs reviewed; patient presents today with anemia. Noted during her last admission back in June in 2017 the patients baseline Hgb above 10. Unknown history of endoscopy/colonoscopy. Home Meds Active Scripts Polyethylene Glycol* (MIRALAX*) 17 Gm Powd.pack, 17 GM GT BEDTIME for 30 Days, PACK Prov:Raul Cannon MD 07/08/18 Metoclopramide Hcl (METOCLOPRAMIDE HCL*) 5 Mg/1 Ml Vial, 10 MG IVP Q6H PRN for 30 Days, VIAL Prov:Raul Cannon MD 07/08/18 Reported Medications Cholecalciferol (Vitamin D3)* (VITAMIN D*) 1,000 Unit Tablet, 1000 UNIT GT DAILY , #30 TAB 09/22/18 Amino Acids/Protein Hydrolys (PRO-STAT LIQUID) 30 Ml Liquid.pkt, 30 ML GT BID, ML 05/12/18 Folic Acid/Vitamin B Comp W-C (BARBARA-ALONSO TABLET) 0.8 Mg Tablet, 0.8 MG GT DAILY , TAB 05/12/18 Minoxidil* (LONITEN*) 2.5 Mg Tablet, 2.5 MG GT BID, TAB 05/11/18 Levothyroxine Sodium* (SYNTHROID*) 150 Mcg Tablet, 150 MCG GT DAILY, TAB Take in the morning on an empty stomach, at least 30 minutes before food. 05/11/18 Insulin Aspart* (NOVOLOG*) 100 Unit/1 Ml Insuln.pen, 0 SUBQ, #1 EA 0 Refills 05/11/18 Heparin Sod (Porcine) (HEPARIN SODIUM*) 5 000/1 Ml Vial, 5000 UNITS SUBQ EVERY 12 HOURS, VIAL 05/11/18 Lorazepam* (ATIVAN*) 1 Mg Tablet, 1 MG GT Q6HR PRN for For Anxiety, TAB 05/11/18 Amlodipine Besylate* (AMLODIPINE BESYLATE*) 10 Mg Tablet, 10 MG GT DAILY, TAB 05/11/18 Acetaminophen* (TYLENOL EXTRA STRENGTH*) 500 Mg Tablet, 500 MG GT Q4HR PRN for Mild Pain/Temp > 100.5, TAB 0 Refills 05/11/18 Discontinued Scripts Doxycycline Hyclate (DOXYCYCLINE HYCLATE) 100 Mg Capsule, 100 MG ORAL EVERY 12 HOURS for 5 Days, CAP Prov:Raul Cannon MD 07/08/18 Med list reviewed/reconciled: Yes Allergies: Coded Allergies: No Known Allergies (Unverified , 05/11/18) Patient History PMH Narrative PAST MEDICAL HISTORY: 1. End-stage renal failure, on dialysis every Saturday, Saturday, Saturday. 2. Schizophrenia. 3. Type 2 diabetes mellitus. 4. Hypothyroidism. Review of Systems All Other Systems: limited Physical Exam Vital Signs Date Time Temp Pulse Resp B/P (MAP) Pulse Ox O2 Delivery O2 Flow Rate FiO2 10/25/18 08:00 98.1 77 19 114/52 (72) 100 10/25/18 09:00 Room Air 10/28/18 12:00 21 Sp02 EP Interpretation: reviewed, normal Labs Laboratory Tests Test 10/29/18 05:50 White Blood Count 9.4 K/UL (4.8-10.8) Red Blood Count 2.82 M/UL (4.20-5.40) L Hemoglobin 9.1 G/DL (12.0-16.0) L Hematocrit 27.8 % (37.0-47.0) L Mean Corpuscular Volume 99 FL (80-99) Mean Corpuscular Hemoglobin 32.2 PG (27.0-31.0) H Mean Corpuscular Hemoglobin Concent 32.6 G/DL (32.0-36.0) Red Cell Distribution Width 15.9 % (11.6-14.8) H Platelet Count 247 K/UL (150-450) Mean Platelet Volume 5.5 FL (6.5-10.1) L Neutrophils (%) (Auto) % (45.0-75.0) Lymphocytes (%) (Auto) % (20.0-45.0) Monocytes (%) (Auto) % (1.0-10.0) Eosinophils (%) (Auto) % (0.0-3.0) Basophils (%) (Auto) % (0.0-2.0) Differential Total Cells Counted 100 Neutrophils % (Manual) 86 % (45-75) H Lymphocytes % (Manual) 7 % (20-45) L Monocytes % (Manual) 7 % (1-10) Eosinophils % (Manual) 0 % (0-3) Basophils % (Manual) 0 % (0-2) Band Neutrophils 0 % (0-8) Platelet Estimate Adequate Platelet Morphology Normal Hypochromasia 1+ Anisocytosis 1+ Sodium Level 134 MMOL/L (136-145) L Potassium Level 4.6 MMOL/L (3.5-5.1) Chloride Level 95 MMOL/L (98-107) L Carbon Dioxide Level 29 MMOL/L (21-32) Anion Gap 10 mmol/L (5-15) Blood Urea Nitrogen 101 mg/dL (7-18) H Creatinine 3.5 MG/DL (0.55-1.30) H Estimat Glomerular Filtration Rate mL/min (>60) Glucose Level 186 MG/DL (74-106) H Calcium Level 8.7 MG/DL (8.5-10.1) Phosphorus Level 3.1 MG/DL (2.5-4.9) General Appearance: well appearing, no apparent distress, alert Head: normocephalic EENT: PERRL/EOMI, normal ENT inspection Neck: supple Respiratory: normal breath sounds, no respiratory distress Cardiovascular: normal rate Gastrointestinal: normal inspection, non tender, soft, normal bowel sounds, non -distended Rectal: deferred Genitourinary: no CVA tenderness Musculoskeletal: normal inspection, back normal Neurologic: normal inspection, alert, oriented x3, responsive Psychiatric: normal inspection, judgement/insight normal, memory normal Skin: normal inspection, normal color, no rash, warm/dry, palpation normal, well hydrated Lymphatic: normal inspection, no adenopathy Current Medications Current Medications Medications (Trade) Dose Ordered Sig/Konrad Route PRN Reason Start Time Stop Time Status Last Admin Dose Admin Acetaminophen (Tylenol) 650 mg Q4H PRN GT Mild Pain/Temp > 100.5 10/24/18 19:07 11/23/18 19:06 Albuterol/ Ipratropium (Albuterol/ Ipratropium) 3 ml Q6H PRN HHN SOB and WHEEZING 10/28/18 11:45 11/02/18 11:44 10/28/18 12:00 Amlodipine Besylate (Norvasc) 10 mg DAILY GT 10/25/18 09:00 11/24/18 08:59 10/28/18 08:57 Dextrose (Dextrose 50%) 25 ml Q30M PRN IV Hypoglycemia 10/24/18 18:45 11/23/18 18:44 Dextrose (Dextrose 50%) 50 ml Q30M PRN IV Hypoglycemia 10/24/18 18:49 11/23/18 18:48 Epoetin Chau (Procrit (for non ESRD use)) 8,000 units SAT-SAT-SAT SUBQ 10/24/18 21:00 11/23/18 20:59 10/27/18 21:02 Guaifenesin/ Dextromethorphan (Robitussin DM Syrup) 10 ml Q8H PRN GT For Cough 10/28/18 12:30 11/27/18 12:29 10/28/18 23:45 Heparin Sodium (Porcine) (Heparin 5000 units/ml) 5,000 units EVERY 12 HOURS SUBQ 10/24/18 21:00 11/23/18 20:59 10/29/18 09:56 Heparin Sodium (Porcine) (Heparin Sod 1000 units/ml 10ml) 500 unit ONCE IV 10/30/18 11:30 10/30/18 23:59 Heparin Sodium (Porcine) (Heparin Sod 1000 units/ml 10ml) 2,000 unit ONCE PRN IV FOR HD USE ONLY 10/28/18 12:00 10/29/18 23:59 Insulin Aspart (NovoLOG) EVERY 6 HOURS SUBQ 10/28/18 00:00 11/23/18 20:59 10/29/18 12:43 Iron Sucrose 100 mg/Sodium Chloride 60 ml @ 240 mls/hr BEDTIME IV 10/25/18 21:00 10/29/18 21:14 10/28/18 20:55 Levothyroxine Sodium (Synthroid) 150 mcg DAILY@0630 GT 10/25/18 06:30 11/24/18 06:29 10/29/18 05:32 Lorazepam (Ativan) 1 mg Q6H PRN GT For Anxiety 10/24/18 19:07 10/31/18 19:06 10/24/18 22:44 Metoclopramide HCl (Reglan) 10 mg Q6H PRN IVP Nausea & Vomiting 10/24/18 19:07 11/23/18 19:06 10/28/18 23:46 Minoxidil (Loniten) 2.5 mg Q12HR GT 10/24/18 21:00 11/23/18 20:59 10/28/18 20:51 Polyethylene Glycol (Miralax) 17 gm BEDTIME GT 10/24/18 21:00 11/23/18 20:59 10/28/18 20:44 Sodium Chloride 1,000 ml @ 500 mls/hr Q2H PRN IVLG sbp<90 during hd 10/28/18 12:30 10/29/18 23:59 Sodium Chloride 1,000 ml @ 500 mls/hr Q2H PRN IVLG sbp<90 during hd 10/30/18 11:21 10/30/18 23:59 Vitamin B Complex/ Vit C/Folic Acid (Nephrovite) 1 tab DAILY GT 10/25/18 09:00 11/24/18 08:59 10/29/18 09:55 Vitamin D (Vitamin D) 1,000 intlu DAILY GT 10/25/18 09:00 11/24/18 08:59 10/29/18 09:55 GI: Plan Problems: (1) Vomiting (2) Gastrostomy tube dependent (3) Fecal impaction (4) Anemia (5) End stage renal disease on dialysis Plan EGD/colonoscopy to be scheduled tomorrow. >> cancel due to no consent, bioethics ordered. - NPO @ [place] - hold all blood thinners ppi prn transfusions Will follow with additional recs post procedure. Discussed with Dr. Taylor. Thank you for this patient referral. The patient was seen and examined at bedside and all new and available data was reviewed in the patients chart. I agree with the above findings, impression and plan. (Patient seen earlier today. Signature stamp does not reflect patient encounter time.). - MD Rhonda Moon Anh-Helder GORMAN Oct 29, 2018 15:45
[2018-10-29 16:00] VITALS: BP 136/58
[2018-10-29] MEDS ORDERED: Nulytely 4L ORAL SCH (16:00)
[2018-10-29] MEDS ORDERED: Bisacodyl EC 5mg tab ORAL SCH (16:00)
--- NOTE | 2018-10-29 19:00 | NUR ---
NURSE NOTES: Patient continues to tolerate g-tube feeding,HOB elevated.Bed alarm is on,call light within reach.
[2018-10-29 20:00] VITALS: BP 153/68
--- NOTE | 2018-10-29 20:31 | NUR ---
NURSE NOTES: Patient unable to sign consents,and patient has no family. X RAY PHYSICIAN Helder aware and order to cancel procedure EGD and Colonoscopy,and to get Bioethics and Air Lift Operator due to patient unable to sign consents for procedure,There are 2 numbers noted on patient face sheet.Numbers ring ..
--- NOTE | 2018-10-29 20:45 | NUR ---
NURSE NOTES: Patient in bed eyes closed, no s/s distress noted. Kept HOB elevated, turned and repositioned. Per day shift nurse, EGD and colonoscopy scheduled for tomorrow cancelled but keep NPO after midnight. Will continue to monitor.
[2018-10-29] MEDS: Miralax 17gm pkt GT SCH (20:47)
[2018-10-29] MEDS: Iron Sucrose 100 MG in NS 55 ML IV SCH (20:47)
[2018-10-29] MEDS: Epogen (for non ESRD use) SUBQ SCH (20:49)
[2018-10-29] MEDS: Albuterol/Ipratropium 3ml neb HHN PRN (20:54)
[2018-10-29] MEDS ORDERED: Epoetin Alfa-EPBX(ESRD on dialysis)4000 units/ml vial SUBQ ONE (21:00)
--- NOTE | 2018-10-29 22:13 | NUR ---
patient receive tube feedings at 75cc /hr as ordered. Addendum: 10/29/18 at 2214 by EMIL RODRIGUES RN RN Amended: Links added.
[2018-10-30] VITALS: BP 143/64
[2018-10-30 04:00] VITALS: BP 131/55
[2018-10-30] MEDS: NovoLOG Insulin Flexpen SUBQ SCH ×3 (06:00→18:00)
--- NOTE | 2018-10-30 07:21 | NUR ---
HAND-OFF: Report given to Wilmer SWAIN.
--- NOTE | 2018-10-30 07:40 | NUR ---
NURSE NOTES: Received patient on bed, asleep. IV site intact and patent. Gtube present but patient NPO awaiting procedure. Bed in low and locked position, call light in reach. Nasal cannula 2L/minute. No signs of respiratory distress or pain. Room board updated, will continue to monitor.
[2018-10-30 08:41] LABS: HEMATOCRIT 25.9 % (37.0-47.0); HEMOGLOBIN 8.3 G/DL (12.0-16.0); MEAN CORPUSCULAR VOLUME 100 FL (80-99); PLATELET COUNT 244 K/UL (150-450); RED BLOOD COUNT 2.58 M/UL (4.20-5.40); RED CELL DISTRIBUTION WIDTH 16.1 % (11.6-14.8); WHITE BLOOD COUNT 8.2 K/UL (4.8-10.8)
[2018-10-30 08:50] VITALS: BP 135/62
[2018-10-30] MEDS: Nephrovite tab (Rena-Vite) GT SCH (09:00)
[2018-10-30] MEDS: Heparin 5000 units/ml inj SUBQ SCH ×2 (09:00→21:45)
[2018-10-30] MEDS: Minoxidil 2.5mg tab GT SCH ×2 (09:00→21:45)
[2018-10-30] MEDS: Vitamin D 1000 IU Tab GT SCH (09:00)
[2018-10-30 09:11] LABS: INR 1.1 (0.9-1.1)
[2018-10-30 09:21] LABS: ANION GAP 11 mmol/L (5-15); BLOOD UREA NITROGEN 88 mg/dL (7-18); CALCIUM 9.2 MG/DL (8.5-10.1); CARBON DIOXIDE 27 MMOL/L (21-32); CHLORIDE 97 MMOL/L (98-107); CREATININE 3.1 MG/DL (0.55-1.30); POTASSIUM 4.5 MMOL/L (3.5-5.1); SODIUM 135 MMOL/L (136-145)
--- NOTE | 2018-10-30 10:00 | NUR ---
NURSE NOTES: Attempted to contact the dish up person person listed, Bogdan North, but no answer and could not leave a message. Left message for next of kin listed, Giorgi Hitchcock. Awaiting call back. Charge nurse aware.
--- NOTE | 2018-10-30 10:47 | GI Progress Note ---
Assessment/Plan Problems: (1) Gastrostomy tube dependent ICD Codes: Z93.1 - Gastrostomy status SNOMED: 094173506, 969329225 (2) Vomiting ICD Codes: R11.10 - Vomiting, unspecified SNOMED: 983886848 (3) Fecal impaction ICD Codes: K56.41 - Fecal impaction SNOMED: 89213645 (4) Anemia ICD Codes: D64.9 - Anemia, unspecified SNOMED: 226732357 Qualifiers: Qualified Codes: D64.9 - Anemia, unspecified (5) Malfunction of gastrostomy tube ICD Codes: K94.23 - Gastrostomy malfunction SNOMED: 163595348 (6) Hematemesis ICD Codes: K92.0 - Hematemesis SNOMED: 5416170 Status: unchanged Status Narrative Discussed with Dr. Taylor Assessment/Plan EGD/colonoscopy cancel due to no consent, bioethics social work ordered to locate family. >> d/w with bioethics procedure will require two MD consent. - maintain NPO - prep for tomorrow prn transfusions Will follow with additional recs post procedure. The patient was seen and examined at bedside and all new and available data was reviewed in the patients chart. I agree with the above findings, impression and plan. (Patient seen earlier today. Signature stamp does not reflect patient encounter time.). - Hilton Taylor MD Subjective Subjective Limited Objective Last 24 Hour Vital Signs Date Time Temp Pulse Resp B/P (MAP) Pulse Ox O2 Delivery O2 Flow Rate FiO2 10/30/18 09:00 Room Air 10/30/18 08:50 97.3 51 20 135/62 (86) 98 10/30/18 07:46 74 16 Nasal Cannula 1.0 24 10/30/18 07:46 95 Nasal Cannula 1.0 24 10/30/18 07:46 Nasal Cannula 1.0 24 10/30/18 04:00 98.2 83 18 131/55 (80) 97 10/30/18 00:00 97.9 92 19 143/64 (90) 98 10/29/18 21:01 99 20 99 Nasal Cannula 2.0 28 10/29/18 21:00 Room Air 10/29/18 20:53 98 20 95 Room Air 21 10/29/18 20:47 153/68 10/29/18 20:00 99.0 94 21 153/68 (96) 98 10/29/18 19:47 95 20 Room Air 21 10/29/18 16:00 97.1 98 20 136/58 (84) 97 10/29/18 12:21 97.9 74 19 131/66 (87) 96 Intake and Output 10/29/18 10/30/18 19:00 07:00 Intake Total 520 ml 460 ml Balance 520 ml 460 ml Intake Oral 420 ml Free Water 100 ml 100 ml IV Total 60 ml Tube Feeding 300 ml # Bowel Movements 2 1 Laboratory Tests Test 10/29/18 21:55 10/30/18 07:05 Stool Occult Blood Pending White Blood Count 8.2 K/UL (4.8-10.8) Red Blood Count 2.58 M/UL (4.20-5.40) L Hemoglobin 8.3 G/DL (12.0-16.0) L Hematocrit 25.9 % (37.0-47.0) L Mean Corpuscular Volume 100 FL (80-99) H Mean Corpuscular Hemoglobin 32.1 PG (27.0-31.0) H Mean Corpuscular Hemoglobin Concent 32.0 G/DL (32.0-36.0) Red Cell Distribution Width 16.1 % (11.6-14.8) H Platelet Count 244 K/UL (150-450) Mean Platelet Volume 5.3 FL (6.5-10.1) L Neutrophils (%) (Auto) % (45.0-75.0) Lymphocytes (%) (Auto) % (20.0-45.0) Monocytes (%) (Auto) % (1.0-10.0) Eosinophils (%) (Auto) % (0.0-3.0) Basophils (%) (Auto) % (0.0-2.0) Neutrophils % (Manual) Pending Lymphocytes % (Manual) Pending Platelet Estimate Pending Platelet Morphology Pending Prothrombin Time 12.0 SEC (9.30-11.50) H Prothromb Time International Ratio 1.1 (0.9-1.1) Activated Partial Thromboplast Time 38 SEC (23-33) H Sodium Level 135 MMOL/L (136-145) L Potassium Level 4.5 MMOL/L (3.5-5.1) Chloride Level 97 MMOL/L (98-107) L Carbon Dioxide Level 27 MMOL/L (21-32) Anion Gap 11 mmol/L (5-15) Blood Urea Nitrogen 88 mg/dL (7-18) H Creatinine 3.1 MG/DL (0.55-1.30) H Estimat Glomerular Filtration Rate mL/min (>60) Glucose Level 81 MG/DL (74-106) # Calcium Level 9.2 MG/DL (8.5-10.1) Height (Feet): 5 Height (Inches): 3.00 Weight (Pounds): 125 General Appearance: WD/WN, no apparent distress, alert Cardiovascular: normal rate Respiratory/Chest: normal breath sounds, no respiratory distress Abdominal Exam: normal bowel sounds, non tender, soft, GT site - Clean dry and intact Extremities: non-tender Janene Ellis NP Oct 30, 2018 10:47
--- NOTE | 2018-10-30 11:20 | NUR ---
NURSE NOTES: Contacted hospice social worker Leslie in regards to bio etchucs consult order per MD Cannon's request. Awaiting updates.
[2018-10-30] MEDS ORDERED: Heparin Sod 1000 units/ml 10ml IV SCH (11:30)
--- NOTE | 2018-10-30 11:44 | Nephrology Progress Note ---
Assessment/Plan Plan s/p transfusion.Worsening Anemia. ESRD HD MWF+ HD Patient has no family, no DPOA. Signed for her transfusion SOB - see orders. CXR CHF. Labs reviewed again. BUN increasing despite adequate HD to >>100 and Hct is low again. Suspicious for GI bleed. GI noted. Need urgent bioethics for endoscopies! Subjective Subjective Less SOB, Less coughing. GI noted Objective Objective Last 24 Hour Vital Signs Date Time Temp Pulse Resp B/P (MAP) Pulse Ox O2 Delivery O2 Flow Rate FiO2 10/30/18 09:00 Room Air 10/30/18 08:50 97.3 51 20 135/62 (86) 98 10/30/18 07:46 74 16 Nasal Cannula 1.0 24 10/30/18 07:46 95 Nasal Cannula 1.0 24 10/30/18 07:46 Nasal Cannula 1.0 24 10/30/18 04:00 98.2 83 18 131/55 (80) 97 10/30/18 00:00 97.9 92 19 143/64 (90) 98 10/29/18 21:01 99 20 99 Nasal Cannula 2.0 28 10/29/18 21:00 Room Air 10/29/18 20:53 98 20 95 Room Air 21 10/29/18 20:47 153/68 10/29/18 20:00 99.0 94 21 153/68 (96) 98 10/29/18 19:47 95 20 Room Air 21 10/29/18 16:00 97.1 98 20 136/58 (84) 97 10/29/18 12:21 97.9 74 19 131/66 (87) 96 Intake and Output 10/29/18 10/30/18 19:00 07:00 Intake Total 520 ml 460 ml Balance 520 ml 460 ml Intake Oral 420 ml Free Water 100 ml 100 ml IV Total 60 ml Tube Feeding 300 ml # Bowel Movements 2 1 Laboratory Tests 10/29/18 21:55: Stool Occult Blood Positive 10/30/18 07:05: White Blood Count 8.2, Red Blood Count 2.58L, Hemoglobin 8.3L, Hematocrit 25.9L , Mean Corpuscular Volume 100H, Mean Corpuscular Hemoglobin 32.1H, Mean Corpuscular Hemoglobin Concent 32.0, Red Cell Distribution Width 16.1H, Platelet Count 244, Mean Platelet Volume 5.3L, Neutrophils (%) (Auto) , Lymphocytes (%) (Auto) , Monocytes (%) (Auto) , Eosinophils (%) (Auto) , Basophils (%) (Auto) , Differential Total Cells Counted 100, Neutrophils % ( Manual) 81H, Lymphocytes % (Manual) 6L, Monocytes % (Manual) 13H, Eosinophils % (Manual) 0, Basophils % (Manual) 0, Band Neutrophils 0, Platelet Estimate Adequate, Platelet Morphology Normal, Polychromasia 1+, Hypochromasia 1+, Anisocytosis 1+, Macrocytosis 1+, Prothrombin Time 12.0H, Prothromb Time International Ratio 1.1, Activated Partial Thromboplast Time 38H, Sodium Level 135L, Potassium Level 4.5, Chloride Level 97L, Carbon Dioxide Level 27, Anion Gap 11, Blood Urea Nitrogen 88H, Creatinine 3.1H, Estimat Glomerular Filtration Rate , Glucose Level 81#, Calcium Level 9.2 Height (Feet): 5 Height (Inches): 3.00 Weight (Pounds): 125 Objective CV RR Cachechtic Lungs B wheezes Abd SNT. BS + PEG. E M. Raul Jarquin MD Oct 30, 2018 11:44
[2018-10-30 12:00] VITALS: BP 168/81
--- NOTE | 2018-10-30 12:00 | NUR ---
NURSE NOTES: 1200 scheduled novolg sliding scale coverage was not given due to patient being NPO.
--- NOTE | 2018-10-30 12:19 | NUR ---
NURSE NOTES: [facility] notified of HD order for tomorrow 10/31/18. Spoke to flexo press operator Lisa.
--- NOTE | 2018-10-30 14:06 | NUR ---
NURSE NOTES: Message left with Lisa at IR confirming that patient is scheduled for dialysis for today as well as 10/31/18. Charge nurse aware.
--- NOTE | 2018-10-30 14:58 | NUR ---
Social Service Note Bioethics consult not required for consent of a EGD. to document risk, benefits and possible outcomes. ANGELINA attempted to contact Giorgi Hitchcock [phone], however when SW called this number [employer] indicated that no one by this named worked there. ANGELINA also contacted [facility] the board and care patient previously resided and that was also the only number they had for patient's cousin Giorgi Hitchcock. ANGELINA spoke with [facility] ANGELINA Patel and there are no additional numbers for Giorgi. Jorge also stated that facility has never had contact with Bogdan Archuleta. ANGELINA obtained POLST from SNF completed verbally by patient that indicated patient wishes were Full Code, Full treatment, skilled nursing artificial nutrition and no advance directives. Patient will return to [facility] when appropriate.
--- NOTE | 2018-10-30 15:52 | NUR ---
RIP SAW OPERATORDEPARTMENT TRAFFIC FREIGHT ROUTER SI: ESRD,GI BLEED T. 97.3 HR 51 RR 20 B/P 135/62 NA 135 IS; EGD HEPARIN SUBC NORVASC PO MED/SURG STATUS
[2018-10-30 16:00] VITALS: BP 166/75
[2018-10-30] MEDS ORDERED: Nulytely 4L ORAL SCH (16:00)
--- NOTE | 2018-10-30 16:00 | NUR ---
NURSE NOTES: Suctioned patient. Tolerated well.
--- NOTE | 2018-10-30 17:37 | NUR ---
NURSE NOTES: Spoke to Alexis from [facility] and cancelled todays HD after I confirmed with MD Cannon that he ordered todays HD by mistake.
--- NOTE | 2018-10-30 19:10 | NUR ---
NURSE NOTES: Received a report from Wilmer Baig RN. Pt is in stable condition. AOX1. No respiratory distress noted. Uses nasal cannula 2L/min. No pain/discomfort noted. IV site is patent and intact. HOB elevated. GT feeding is running. L AV fistula + bruit and thrill. Bed in lowest position. Bed alarm is on. Call light within reach. Will continue to monitor.
--- NOTE | 2018-10-30 19:10 | NUR ---
NURSE NOTES: Suctioned patient, tolerated well.
--- NOTE | 2018-10-30 19:16 | NUR ---
NURSE NOTES: WILIAM Guillen, endorsed to Adilia SWAIN, that the hemodialysis schedule of the patient is for tomorrow, and not today. Charge Nurse Kobi is aware.
--- NOTE | 2018-10-30 19:18 | NUR ---
HAND-OFF: Report given to WILIAM Friend.
[2018-10-30 20:00] VITALS: BP 157/54
[2018-10-30] MEDS: Miralax 17gm pkt GT SCH (21:46)
[2018-10-31] VITALS (13 sets, daily range): BP systolic 123–174; BP diastolic 55–82
[2018-10-31] MEDS: NovoLOG Insulin Flexpen SUBQ SCH ×7 (01:00→23:59)
[2018-10-31] MEDS ORDERED: Heparin Sod 1000 units/ml 10ml IV SCH (06:00)
--- NOTE | 2018-10-31 07:10 | NUR ---
HAND-OFF: Report given to Hilary Corona RN.
--- NOTE | 2018-10-31 07:30 | NUR ---
nurse notes received patient in bed sleepin, no sign of distress, on nasal cannula 2L/min. no fascial grimace noted, HL patent and intact. HOB elevated. ON npo , GT feeding clamped. Left AV fistula + bruit and thrill. Bed in lowest position. Bed alarm is on.on fall , aspiration precaution observed and maintained Call light within reach. Will continue to monitor. kristine subramanian
[2018-10-31 07:40] LABS: HEMATOCRIT 29.3 % (37.0-47.0); HEMOGLOBIN 9.4 G/DL (12.0-16.0); MEAN CORPUSCULAR VOLUME 100 FL (80-99); PLATELET COUNT 251 K/UL (150-450); RED BLOOD COUNT 2.93 M/UL (4.20-5.40); RED CELL DISTRIBUTION WIDTH 15.7 % (11.6-14.8); WHITE BLOOD COUNT 9.6 K/UL (4.8-10.8)
[2018-10-31 07:50] LABS: ANION GAP 14 mmol/L (5-15); BLOOD UREA NITROGEN 100 mg/dL (7-18); CARBON DIOXIDE 25 MMOL/L (21-32); CHLORIDE 96 MMOL/L (98-107); CREATININE 3.9 MG/DL (0.55-1.30); POTASSIUM 5.1 MMOL/L (3.5-5.1); SODIUM 135 MMOL/L (136-145)
[2018-10-31 07:52] LABS: INR 1.1 (0.9-1.1)
[2018-10-31] MEDS: Heparin 5000 units/ml inj SUBQ SCH ×2 (09:00→21:02)
[2018-10-31] MEDS: Minoxidil 2.5mg tab GT SCH ×2 (09:00→20:59)
--- NOTE | 2018-10-31 09:27 | GI Progress Note ---
Assessment/Plan Problems: (1) Hematemesis ICD Codes: K92.0 - Hematemesis SNOMED: 5605979 (2) Gastrostomy tube dependent ICD Codes: Z93.1 - Gastrostomy status SNOMED: 913994090, 583589062 (3) Hemorrhage of arteriovenous fistula ICD Codes: T82.838A - Hemorrhage due to vascular prosthetic devices, implants and grafts, initial encounter SNOMED: 008119890 Qualifiers: Qualified Codes: T82.838A - Hemorrhage due to vascular prosthetic devices, implants and grafts, initial encounter (4) Anemia ICD Codes: D64.9 - Anemia, unspecified SNOMED: 448149067 Qualifiers: Qualified Codes: D64.9 - Anemia, unspecified Assessment/Plan patient has profound anemia and stool ob positive needs EGD and colonoscopy no family to sign bioethics in put appreciated plan proceed with EGD and colonoscopy with MD consent Subjective Gastrointestinal/Abdominal: Reports: no symptoms Objective Last 24 Hour Vital Signs Date Time Temp Pulse Resp B/P (MAP) Pulse Ox O2 Delivery O2 Flow Rate FiO2 10/31/18 08:46 Room Air 10/31/18 08:05 98.1 70 19 131/58 (82) 98 10/31/18 07:01 80 16 Nasal Cannula 2.0 28 10/31/18 07:01 97 Nasal Cannula 2.0 28 10/31/18 07:01 Nasal Cannula 2.0 28 10/31/18 04:00 98.3 83 19 142/69 (93) 94 10/31/18 00:00 98.2 77 19 143/61 (88) 98 10/30/18 21:45 157/54 10/30/18 21:00 Room Air 10/30/18 20:00 96 Nasal Cannula 2.0 28 10/30/18 20:00 Nasal Cannula 2.0 28 10/30/18 20:00 98.6 87 19 157/54 (88) 96 10/30/18 20:00 88 18 Nasal Cannula 2.0 28 10/30/18 16:00 97.2 82 18 166/75 (105) 92 10/30/18 12:00 97.1 84 20 168/81 (110) 91 Intake and Output 10/30/18 10/31/18 19:00 07:00 Intake Total 175 ml 495 ml Balance 175 ml 495 ml Free Water 100 ml 120 ml Tube Feeding 75 ml 375 ml # Bowel Movements 5 Laboratory Tests Test 10/31/18 06:45 White Blood Count 9.6 K/UL (4.8-10.8) Red Blood Count 2.93 M/UL (4.20-5.40) L Hemoglobin 9.4 G/DL (12.0-16.0) L Hematocrit 29.3 % (37.0-47.0) L Mean Corpuscular Volume 100 FL (80-99) H Mean Corpuscular Hemoglobin 31.9 PG (27.0-31.0) H Mean Corpuscular Hemoglobin Concent 31.9 G/DL (32.0-36.0) L Red Cell Distribution Width 15.7 % (11.6-14.8) H Platelet Count 251 K/UL (150-450) Mean Platelet Volume 5.2 FL (6.5-10.1) L Neutrophils (%) (Auto) % (45.0-75.0) Lymphocytes (%) (Auto) % (20.0-45.0) Monocytes (%) (Auto) % (1.0-10.0) Eosinophils (%) (Auto) % (0.0-3.0) Basophils (%) (Auto) % (0.0-2.0) Neutrophils % (Manual) Pending Lymphocytes % (Manual) Pending Platelet Estimate Pending Platelet Morphology Pending Prothrombin Time 11.3 SEC (9.30-11.50) Prothromb Time International Ratio 1.1 (0.9-1.1) Activated Partial Thromboplast Time 31 SEC (23-33) Sodium Level 135 MMOL/L (136-145) L Potassium Level 5.1 MMOL/L (3.5-5.1) Chloride Level 96 MMOL/L (98-107) L Carbon Dioxide Level 25 MMOL/L (21-32) Anion Gap 14 mmol/L (5-15) Blood Urea Nitrogen 100 mg/dL (7-18) H Creatinine 3.9 MG/DL (0.55-1.30) H Estimat Glomerular Filtration Rate mL/min (>60) Glucose Level 119 MG/DL (74-106) H Calcium Level 9.0 MG/DL (8.5-10.1) Height (Feet): 5 Height (Inches): 5.00 Weight (Pounds): 124 General Appearance: no apparent distress Cardiovascular: normal rate Respiratory/Chest: lungs clear Abdominal Exam: normal bowel sounds, non tender, soft, decreased bowel sounds Extremities: non-tender Hilton Taylor MD Oct 31, 2018 09:27
[2018-10-31] MEDS ORDERED: LR 1000ml ONE (09:30)
[2018-10-31] MEDS ORDERED: Propofol 200mg/20ml IV ONE (09:30)
[2018-10-31] MEDS ORDERED: Lidocaine 1% MPF 10mg/ml 5ml ONE (09:30)
[2018-10-31] MEDS ORDERED: NS 500ML IVPB ONE (09:30)
--- NOTE | 2018-10-31 09:30 | NUR ---
nurse notes brought to GI for procedure via dionisiorcindy in stable condition kristine subramanian
--- NOTE | 2018-10-31 09:31 | Pre-Procedure Note/Attestation ---
Pre-Procedure Note/Attestation Complete Prior to Procedure Planned Procedure: not applicable Procedure Narrative: esophagogastroduodenoscopy and colonoscopy Indications for Procedure Pre-Operative Diagnosis: Anemia Attestation I attest that I discussed the nature of the procedure; its benefits; risks and complications; and alternatives (and the risks and benefits of such alternatives ), prior to the procedure, with the patient (or the patient's legal business services representative). I attest that, if there was a reasonable possibility of needing a blood transfusion, the patient (or the patient's legal business services representative) was given the [facility] standardized written summary, pursuant to the Jony Fanny Blood Safety Act ([place] Health and Safety Code # 1645, as amended). I attest that I re-evaluated the patient just prior to the surgery and that there has been no change in the patient's H&P, except as documented below: Hilton Taylor MD Oct 31, 2018 09:31
--- NOTE | 2018-10-31 10:04 | Endoscopy Procedure Note ---
Endoscopy Procedure Note General Indication for Procedure: gib Procedures Performed: EGD, colonoscopy Operative Findings/Diagnosis: esophageal ulcer, 2 colon polyps Specimen: yes Pt Tolerated Procedure Well: Yes Estimated Blood Loss: none Anesthesia Anesthesiologist: vazquez Anesthesia: MAC Inserted Devices Implant(s) used?: No Quality Quality of Bowel Preparation: Fair Did scope reach the cecum?: Yes Was there any complications?: No GI Core Measures 50 yrs or older w/o bx or poly: Not Applicable 10yrs. F/U not recommended: Not Applicable Hilton Taylor MD Oct 31, 2018 10:04
--- NOTE | 2018-10-31 10:12 | Anethesia Preoperative Eval ---
Anesthesia Pre-op PMH/ROS General Date of Evaluation: Oct 31, 2018 Time of Evaluation: 09:25 Anesthesiologist: humberto ASA Score: ASA 4 Mallampati Score Class I : Soft palate, uvula, fauces, pillars visible Class II: Soft palate, uvula, fauces visible Class III: Soft palate, base of uvula visible Class IV: Only hard plate visible Mallampati Classification: Class II Surgeon: nola Diagnosis: anemia Surgical Procedure: EGD/Colonoscopy Anesthesia History: none Allergies: Coded Allergies: No Known Allergies (Unverified , 05/11/18) Medications: see eMAR Patient NPO?: Yes NPO Date: Oct 31, 2018 NPO Time: 00:01 Past Medical History Cardiovascular: Reports: HTN, CAD Pulmonary: Reports: other - resp failure Gastrointestinal/Genitourinary: Reports: GERD Neurologic/Psychiatric: Reports: dementia, depression/anxiety Endocrine: Reports: DM, hypothyroidism HEENT: Denies: cataract (L), cataract (R), glaucoma, LAC VIEUX (L), LAC VIEUX (R), other Musculoskeletal/Integumentary: Denies: OA, RA, DJD, DDD, edema, other PMH Narrative: 1.End-stage renal failure, on dialysis every Saturday, Saturday, Saturday. 2. Schizophrenia. 3. Type 2 diabetes mellitus. 4. Hypothyroidism. PSxH Narrative: unknown Anesthesia Pre-op Phys. Exam Physician Exam Last Vital Signs Date Time Temp Pulse Resp B/P (MAP) Pulse Ox O2 Delivery O2 Flow Rate FiO2 10/31/18 08:46 Room Air 10/31/18 08:05 98.1 70 19 131/58 (82) 98 10/31/18 07:01 2.0 28 Neurologic: other - demented Cardiovascular: RRR Respiratory: CTA Gastrointestinal: S/NT/ND Airway Exam Mallampati Classification 2 Mallampati Score: Class II MO: full ROM: full Teeth: other Dentures: no upper, no lower Anesthesia Pre-op A/P Labs Hematology Test 10/31/18 06:45 White Blood Count 9.6 K/UL (4.8-10.8) Red Blood Count 2.93 M/UL (4.20-5.40) L Hemoglobin 9.4 G/DL (12.0-16.0) L Hematocrit 29.3 % (37.0-47.0) L Mean Corpuscular Volume 100 FL (80-99) H Mean Corpuscular Hemoglobin 31.9 PG (27.0-31.0) H Mean Corpuscular Hemoglobin Concent 31.9 G/DL (32.0-36.0) L Red Cell Distribution Width 15.7 % (11.6-14.8) H Platelet Count 251 K/UL (150-450) Mean Platelet Volume 5.2 FL (6.5-10.1) L Neutrophils (%) (Auto) % (45.0-75.0) Lymphocytes (%) (Auto) % (20.0-45.0) Monocytes (%) (Auto) % (1.0-10.0) Eosinophils (%) (Auto) % (0.0-3.0) Basophils (%) (Auto) % (0.0-2.0) Neutrophils % (Manual) Pending Lymphocytes % (Manual) Pending Platelet Estimate Pending Platelet Morphology Pending Coagulation Test 10/31/18 06:45 Prothrombin Time 11.3 SEC (9.30-11.50) Prothromb Time International Ratio 1.1 (0.9-1.1) Activated Partial Thromboplast Time 31 SEC (23-33) Chemistry Test 10/31/18 06:45 Sodium Level 135 MMOL/L (136-145) L Potassium Level 5.1 MMOL/L (3.5-5.1) Chloride Level 96 MMOL/L (98-107) L Carbon Dioxide Level 25 MMOL/L (21-32) Anion Gap 14 mmol/L (5-15) Blood Urea Nitrogen 100 mg/dL (7-18) H Creatinine 3.9 MG/DL (0.55-1.30) H Estimat Glomerular Filtration Rate mL/min (>60) Glucose Level 119 MG/DL (74-106) H Calcium Level 9.0 MG/DL (8.5-10.1) Studies Pre-op Studies: EKG - sr Risk Assessment & Plan Plan: mac Pre-Antibiotics Drug: none Isabell Frazier CRNA Oct 31, 2018 10:12
--- NOTE | 2018-10-31 10:13 | Immediate Post-Op Evaluation ---
Immediate Post-Op Evalulation Immediate Post-Op Evalulation Procedure: EGD/colonoscoy Date of Evaluation: Oct 31, 2018 Time of Evaluation: 10:13 IV Fluids: 200 Blood Pressure Systolic: 174 Blood Pressure Diastolic: 68 Pulse Rate: 85 Respiratory Rate: 14 O2 Sat by Pulse Oximetry: 97 Temperature (Fahrenheit): 97.1 Nausea: No Vomiting: No Complications none Patient Status: awake, reacts, patent Hydration Status: adequate Drug: none Isabell Frazier CRNA Oct 31, 2018 10:13
[2018-10-31] MEDS: Nephrovite tab (Rena-Vite) GT SCH (11:07)
[2018-10-31] MEDS: Vitamin D 1000 IU Tab GT SCH (11:08)
--- NOTE | 2018-10-31 11:09 | 48 Hour Post Anesthesia Eval ---
Post Anesthesia Evaluation Procedure: EGD/colonoscoy Date of Evaluation: Oct 31, 2018 Time of Evaluation: 11:09 Blood Pressure Systolic: 165 0: 75 Pulse Rate: 70 Respiratory Rate: 14 O2 Sat by Pulse Oximetry: 99 Airway: patent Nausea: No Vomiting: No Hydration Status: adequate Cardiopulmonary Status: stable Mental Status/LOC: patient returned to baseline Follow-up Care/Observations: na Post-Anesthesia Complications: none Follow-up care needed: N/A Isabell Frazier CRNA Oct 31, 2018 11:09
--- NOTE | 2018-10-31 11:15 | NUR ---
nurse notes received patient back from GI lab S/P egd /colonoscopy, dx duodenitis, gastritis,esophageal ulcer, colon polyp x2, v/s stable and afebrile kristine subramanian
--- NOTE | 2018-10-31 11:26 | NUR ---
nurse notes Gtube feeding resumed started at 40 ml/h, no residual noted
--- NOTE | 2018-10-31 11:27 | Nephrology Progress Note ---
Assessment/Plan Plan s/p transfusion.Worsening Anemia. ESRD HD MWF+ HD Patient has no family, no DPOA. Signed for her transfusion SOB - see orders. CXR CHF. s/p Endoscopies --Gastritis . On Rx. Colonoscopy -polyps. Biopsied. DC to SNF after HD. Subjective Subjective Less SOB, Less coughing. GI noted. Post ensoscopies (upper+lower) Objective Objective Last 24 Hour Vital Signs Date Time Temp Pulse Resp B/P (MAP) Pulse Ox O2 Delivery O2 Flow Rate FiO2 10/31/18 11:09 70 14 99 10/31/18 10:41 77 22 165/75 98 Nasal Cannula 3 10/31/18 10:27 97.2 76 20 168/78 98 Nasal Cannula 3 10/31/18 10:20 78 22 170/82 98 Nasal Cannula 3 10/31/18 10:15 80 23 172/80 98 Nasal Cannula 4 10/31/18 10:13 85 14 97 10/31/18 10:10 97.1 82 14 174/78 97 Nasal Cannula 4 10/31/18 08:46 Room Air 10/31/18 08:05 98.1 70 19 131/58 (82) 98 10/31/18 07:01 80 16 Nasal Cannula 2.0 28 10/31/18 07:01 97 Nasal Cannula 2.0 28 10/31/18 07:01 Nasal Cannula 2.0 28 10/31/18 04:00 98.3 83 19 142/69 (93) 94 10/31/18 00:00 98.2 77 19 143/61 (88) 98 10/30/18 21:45 157/54 10/30/18 21:00 Room Air 10/30/18 20:00 96 Nasal Cannula 2.0 28 10/30/18 20:00 Nasal Cannula 2.0 28 10/30/18 20:00 98.6 87 19 157/54 (88) 96 10/30/18 20:00 88 18 Nasal Cannula 2.0 28 10/30/18 16:00 97.2 82 18 166/75 (105) 92 10/30/18 12:00 97.1 84 20 168/81 (110) 91 Intake and Output 10/30/18 10/31/18 19:00 07:00 Intake Total 175 ml 495 ml Balance 175 ml 495 ml Free Water 100 ml 120 ml Tube Feeding 75 ml 375 ml # Bowel Movements 5 Laboratory Tests 10/31/18 06:45: White Blood Count 9.6, Red Blood Count 2.93L, Hemoglobin 9.4L, Hematocrit 29.3L , Mean Corpuscular Volume 100H, Mean Corpuscular Hemoglobin 31.9H, Mean Corpuscular Hemoglobin Concent 31.9L, Red Cell Distribution Width 15.7H, Platelet Count 251, Mean Platelet Volume 5.2L, Neutrophils (%) (Auto) , Lymphocytes (%) (Auto) , Monocytes (%) (Auto) , Eosinophils (%) (Auto) , Basophils (%) (Auto) , Differential Total Cells Counted 100, Neutrophils % ( Manual) 88H, Lymphocytes % (Manual) 2L, Monocytes % (Manual) 5, Eosinophils % ( Manual) 0, Basophils % (Manual) 0, Band Neutrophils 5, Nucleated Red Blood Cells 1, Platelet Estimate Adequate, Platelet Morphology Normal, Polychromasia 1 +, Hypochromasia , Anisocytosis 1+, Macrocytosis 1+, Prothrombin Time 11.3, Prothromb Time International Ratio 1.1, Activated Partial Thromboplast Time 31, Sodium Level 135L, Potassium Level 5.1, Chloride Level 96L, Carbon Dioxide Level 25, Anion Gap 14, Blood Urea Nitrogen 100H, Creatinine 3.9H, Estimat Glomerular Filtration Rate , Glucose Level 119H, Calcium Level 9.0 Height (Feet): 5 Height (Inches): 5.00 Weight (Pounds): 124 Objective CV RR Cachechtic Lungs B wheezes Abd SNT. BS + PEG. E MRaul Marie MD Oct 31, 2018 11:27
[2018-10-31] MEDS ORDERED: CARAFATE1 G1 ORAL (11:32)
[2018-10-31] MEDS ORDERED: LANSOPRAZOLE30 MG GT (11:32)
--- NOTE | 2018-10-31 11:37 | NUR ---
*-* DISCHARGE PLANNING *-* PATIENT HAS BEEN REFERRED TO: [facility] P:[phone] F:[phone]
[2018-10-31] MEDS ORDERED: Fluconazole 100mg tab ORAL SCH (13:00)
[2018-10-31] MEDS ORDERED: Sucralfate 1gm tab ORAL SCH (13:00)
--- NOTE | 2018-10-31 14:15 | Procedure Note ---
DATE OF PROCEDURE: 10/31/2018 SURGEON: Hilton Taylor M.D. PROCEDURE: Upper endoscopy with biopsy and colonoscopy with biopsy. ANESTHESIA: Per COAL EQUIPMENT OPERATOR, . INSTRUMENT: Olympus adult flexible upper endoscope and colonoscope. INDICATION: GI bleeding. REASON FOR PROCEDURE: The procedure, risks, benefits, and possible consequences, including hemorrhage, aspiration, perforation and infection, and alternative treatments, were explained to the patient/legal guardian by Dr. Hilton Taylor and the patient/legal guardian understood and accepted these risks. PROCEDURE IN DETAIL: After informed consent was obtained and the patient was adequately sedated, Olympus upper endoscope was advanced from mouth into the second portion of the duodenum and retroflexion was performed in the stomach. The patient has evidence of 3 cm hiatal hernia with very large ulcers in the distal esophagus above the hernia sac most probably the source of bleeding with some blood clots sitting on it. This ulcer was big, covering almost 80% of the circumferential of the lumen of the esophagus and distal esophagus. Biopsy from the edge of esophagus was obtained. Then in the stomach, there was evidence of diffuse gastritis. Random biopsy from antrum was obtained to rule out H. pylori infection. The patient also had evidence of aivlartn-di-eztgpc duodenitis. At this time, the upper endoscope was retrieved. The patient was turned over for colonoscopy. First, rectal exam was performed, which was normal. Then, the scope was advanced from rectum into the cecum documented by appendiceal orifice, ileocecal valve, and right upper quadrant palpation. Quality of prep was fair. About 10% to 15% of the colonic mucosa was not examined due to prep. The patient had two polyps, one in the cecum, one in the ascending colon, both removed with cold biopsy forceps technique. The one in the cecum measured roughly about 4 mm. The one in the ascending colon, about 5 mm. The rest of the colonic examination grossly within normal limits. No evidence of any obvious mass or active bleeding in the colon was seen. Retroflexion of rectum showed evidence of internal hemorrhoids. FINDINGS: 1. Large esophageal ulceration, active bleeding, most probably the source of bleeding. 2. Hiatal hernia. 3. Gastritis. 4. Duodenitis. 5. Two colonic polyps removed. 6. Internal hemorrhoids. RECOMMENDATIONS: Reflux measures. PPI twice a day. Given the patient on dialysis, we are going to hold off giving Carafate. Follow labs. Follow up biopsy results. I want to thank Dr. Cannon for this kind referral. Hilton Radha Taylor DR: PABLO JOB#: [id number] CC: Raul Cannon M.D.; Fax#: [phone]
--- NOTE | 2018-10-31 14:15 | NUR ---
*-* DISCHARGE PLANNED *-* PATIENT IS DISCHARGE TO: [facility] ROOM# 101-B LONG TERM T:[phone] FOR NURSE TO NURSE REPORT [facility] HAS BEEN ARRAGED FOR WILL CALL S/W ALICIA X888 NURSE AWARE TRANSFORATION IS SET UP FOR WILL CALL
--- NOTE | 2018-10-31 15:30 | NUR ---
nurse notes noted O2 sat 78 at 2lpm, NRM Place increase 80%, paged Dr Quintero with order noted carried out patient awake, no sign of distress kristine subramanian
--- NOTE | 2018-10-31 15:45 | NUR ---
nurse notes tonya espinal made aware patient will not be discharge today, spoke to WILIAM Gray receiving nurse WILIAM SHEA
--- NOTE | 2018-10-31 16:22 | NUR ---
Nurse notes paged and spoke to Dr Quintero made aware regarding ABG result stated transfer patient to [facility], [facility] supervisor garage aware . stated she will call the room no, .kristine subramanian
--- NOTE | 2018-10-31 17:20 | NUR ---
NURSE NOTES: Received pt,a transfer from 4E per bed confused ,sleepy with !00% non rebreather mask,no resp distress at this time,S-Tachy on the monitor,with GTF Nepro at 40 mlhr ,skin cold and but dry to touch,IV site to RAC intact,HD access to GIANNI very swollen ,ice pack applied to site,SR up x2 HOB elevated ,bed lock in lowest position,will continue to monitor pt.
--- NOTE | 2018-10-31 17:36 | NUR ---
NURSE NOTES: Report given by Hilary Ace RN.
--- NOTE | 2018-10-31 17:42 | NUR ---
nurse notes 1700 dialysis done 2L output, noted left upper arm AV Shunt swollen , ice pack applied, ABG done,prior to transfer , 1710 transferred to [facility] via bed , with all belongings taken report given at bedside, AV Shunt swollen seen by Ms. Arline pollardRN, Dr Quintero not aware regarding the AV shunt, to pls notify PMD kristine subramanian
[2018-10-31] MEDS ORDERED: Guaifenesin/DM 10ml syrup GT PRN (18:30)
[2018-10-31] MEDS ORDERED: Acetaminophen 650mg/20.3ml GT PRN (18:30)
[2018-10-31] MEDS ORDERED: Metoclopramide 10mg/2ml Inj IVP PRN (18:30)
[2018-10-31] MEDS ORDERED: LORazepam 1mg tab GT PRN (18:30)
[2018-10-31] MEDS ORDERED: Albuterol/Ipratropium 3ml neb HHN PRN (18:30)
--- NOTE | 2018-10-31 19:00 | NUR ---
HAND-OFF: Report given to Nisa Natarajan RN.Call placed to Dr Max,to inform re swollen HD access,awaiting return of call.Endorsed to incoming RN.
--- NOTE | 2018-10-31 19:01 | NUR ---
NURSE NOTES: Received bedside report from Arline Hui RN.Patient stable,confused,SR on truck loader,nonrebreathing mask is on with 2L,tolerated well Sat O2 98-100%,GT running with Nepro @ 40 ml/hr flush 50 Q4hrs,BS active in all quadrants,IV asymptomatic,intact on R AC 22G HL,GIANNI dialysis access swollen after dialysis today. notified and returned call back,he is OK to continue ice pack.Patient in a bed ,no s/s of pain,no respiratory distress noted.Bed in a low safety position,secured,call light within a reach.Will continue to monitor and follow POC.
[2018-10-31] MEDS: Sucralfate 1gm tab ORAL SCH (20:59)
[2018-10-31] MEDS ORDERED: Epoetin Alfa-EPBX (NON ESRD)10,000 unit/ml vial SUBQ ONE (21:00)
[2018-10-31] MEDS: Epoetin Alfa-EPBX (NON ESRD)10,000 unit/ml vial SUBQ SCH (21:00)
[2018-10-31] MEDS ORDERED: Epoetin Alfa-EPBX (NON ESRD)10,000 unit/ml vial SUBQ SCH (21:00)
[2018-10-31] MEDS ORDERED: Epoetin Alfa-EPBX(ESRD on dialysis)10,000 unit/ml vial SUBQ ONE (21:00)
[2018-10-31] MEDS ORDERED: Epogen (for non ESRD use) SUBQ SCH (21:00)
[2018-10-31] MEDS: Miralax 17gm pkt GT SCH (21:01)
[2018-11-01] VITALS: BP 108/50
[2018-11-01 04:00] VITALS: BP 108/50
[2018-11-01] MEDS: NovoLOG Insulin Flexpen SUBQ SCH ×4 (06:00→17:51)
[2018-11-01 06:31] LABS: HEMATOCRIT 25.3 % (37.0-47.0); HEMOGLOBIN 8.2 G/DL (12.0-16.0); MEAN CORPUSCULAR VOLUME 100 FL (80-99); PLATELET COUNT 233 K/UL (150-450); RED BLOOD COUNT 2.52 M/UL (4.20-5.40); WHITE BLOOD COUNT 11.9 K/UL (4.8-10.8)
[2018-11-01 06:44] LABS: ANION GAP 12 mmol/L (5-15); BLOOD UREA NITROGEN 71 mg/dL (7-18); CALCIUM 8.7 MG/DL (8.5-10.1); CARBON DIOXIDE 28 MMOL/L (21-32); CHLORIDE 97 MMOL/L (98-107); CREATININE 3.2 MG/DL (0.55-1.30); POTASSIUM 3.7 MMOL/L (3.5-5.1); SODIUM 137 MMOL/L (136-145)
--- NOTE | 2018-11-01 07:11 | NUR ---
HAND-OFF: Report given to WILIAM Freitas.Patient stable.
--- NOTE | 2018-11-01 07:36 | NUR ---
NURSE NOTES: Report received from WILIAM Paula. Observed patient in bed sleeping. Open eyes with shaking. Non-verbal. No s/s of pain at this time. Receiving 10L of oxygen via non-rebreather mask with no distress noted. GT site intact with ongoing feeding. HOB elevated. No residual noted. IV site intact and patent. AV shunt noted on left upper arm with swelling. Ice pack applied to the site. Bed in lowest position. Call light within reach. Will continue to monitor.
[2018-11-01 08:00] VITALS: BP 106/43
[2018-11-01] MEDS: Heparin 5000 units/ml inj SUBQ SCH (08:33)
[2018-11-01] MEDS: Sucralfate 1gm tab ORAL SCH (08:55)
[2018-11-01] MEDS: Minoxidil 2.5mg tab GT SCH ×2 (08:55→20:48)
[2018-11-01] MEDS: Nephrovite tab (Rena-Vite) GT SCH (08:55)
[2018-11-01] MEDS: Vitamin D 1000 IU Tab GT SCH (08:56)
[2018-11-01] MEDS ORDERED: Fluconazole 100mg tab ORAL SCH (09:00)
--- NOTE | 2018-11-01 09:05 | General Progress Note ---
Assessment/Plan Problem List: (1) Hematemesis ICD Codes: K92.0 - Hematemesis SNOMED: 4159689 (2) Gastrostomy tube dependent ICD Codes: Z93.1 - Gastrostomy status SNOMED: 191469327, 987340852 (3) Hemorrhage of arteriovenous fistula ICD Codes: T82.838A - Hemorrhage due to vascular prosthetic devices, implants and grafts, initial encounter SNOMED: 082752977 Qualifiers: Qualified Codes: T82.838A - Hemorrhage due to vascular prosthetic devices, implants and grafts, initial encounter (4) Anemia ICD Codes: D64.9 - Anemia, unspecified SNOMED: 785945923 Qualifiers: Qualified Codes: D64.9 - Anemia, unspecified Assessment/Plan FINDINGS: 1. Large esophageal ulceration, active bleeding, most probably the source of bleeding. 2. Hiatal hernia. 3. Gastritis. 4. Duodenitis. 5. Two colonic polyps removed. 6. Internal hemorrhoid ppi and carafate reflux measures fu biopsy results GTF prn blood transfusion Subjective ROS Limited/Unobtainable: No Allergies: Coded Allergies: No Known Allergies (Unverified , 05/11/18) Objective Last 24 Hour Vital Signs Date Time Temp Pulse Resp B/P (MAP) Pulse Ox O2 Delivery O2 Flow Rate FiO2 11/01/18 08:55 106/43 11/01/18 08:33 78 106/43 11/01/18 08:00 Room Air 11/01/18 08:00 97.9 78 22 106/43 (64) 98 11/01/18 07:22 96 Venturi Mask 12.0 50 11/01/18 07:22 60 14 Venturi Mask 12.0 50 11/01/18 07:22 Venturi Mask 12.0 50 11/01/18 04:00 98.2 96 22 108/50 (69) 98 11/01/18 04:00 83 11/01/18 00:00 98.1 91 22 108/50 (69) 98 11/01/18 00:00 93 10/31/18 21:00 Room Air 10/31/18 21:00 117 123/62 10/31/18 21:00 120 10/31/18 20:59 123/62 10/31/18 20:00 99.5 117 24 123/62 (82) 98 10/31/18 19:22 99 Non-Rebreather 15.0 100 10/31/18 19:22 77 18 Non-Rebreather 15.0 100 10/31/18 19:22 Non-Rebreather 15.0 100 10/31/18 16:31 97.8 76 18 137/59 (85) 98 10/31/18 16:03 97.8 76 18 139/55 (83) 82 10/31/18 15:38 96.1 106 19 138/69 (92) 78 10/31/18 11:51 98.5 67 19 128/59 (82) 97 10/31/18 11:09 70 14 99 10/31/18 10:41 77 22 165/75 98 Nasal Cannula 3 10/31/18 10:27 97.2 76 20 168/78 98 Nasal Cannula 3 10/31/18 10:20 78 22 170/82 98 Nasal Cannula 3 10/31/18 10:15 80 23 172/80 98 Nasal Cannula 4 10/31/18 10:13 85 14 97 10/31/18 10:10 97.1 82 14 174/78 97 Nasal Cannula 4 Intake and Output 10/31/18 11/01/18 18:59 06:59 Intake Total 320 ml 580 ml Output Total 0 ml Balance 320 ml 580 ml Free Water 40 ml 100 ml Tube Feeding 280 ml 480 ml Output Urine Total 0 ml # Bowel Movements 2 2 Laboratory Tests 10/31/18 15:45: Arterial Blood pH 7.504H, Arterial Blood Partial Pressure CO2 35.8, Arterial Blood Partial Pressure O2 53.8L, Arterial Blood HCO3 27.5H, Arterial Blood Oxygen Saturation 84.9*L, Arterial Blood Base Excess 4.4H, Zachary Test Positive 10/31/18 16:58: Arterial Blood pH 7.536H, Arterial Blood Partial Pressure CO2 31.4L, Arterial Blood Partial Pressure O2 53.5L, Arterial Blood HCO3 26.0, Arterial Blood Oxygen Saturation 88.4*L, Arterial Blood Base Excess 3.6H, Zachary Test Positive 11/01/18 04:03: White Blood Count 11.9H, Red Blood Count 2.52L, Hemoglobin 8.2L, Hematocrit 25.3L, Mean Corpuscular Volume 100H, Mean Corpuscular Hemoglobin 32.4H, Mean Corpuscular Hemoglobin Concent 32.3, Red Cell Distribution Width 16.0H, Platelet Count 233, Mean Platelet Volume 5.5L, Neutrophils (%) (Auto) , Lymphocytes (%) (Auto) , Monocytes (%) (Auto) , Eosinophils (%) (Auto) , Basophils (%) (Auto) , Differential Total Cells Counted 100, Neutrophils % ( Manual) 87H, Lymphocytes % (Manual) 4L, Monocytes % (Manual) 7, Eosinophils % ( Manual) 0, Basophils % (Manual) 0, Band Neutrophils 2, Platelet Estimate Adequate, Platelet Morphology Normal, Hypochromasia 2+, Anisocytosis 1+, Sodium Level 137, Potassium Level 3.7, Chloride Level 97L, Carbon Dioxide Level 28, Anion Gap 12, Blood Urea Nitrogen 71H, Creatinine 3.2H, Estimat Glomerular Filtration Rate , Glucose Level 213H, Calcium Level 8.7 Height (Feet): 5 Height (Inches): 5.00 Weight (Pounds): 123 General Appearance: no apparent distress EENT: normal ENT inspection Neck: supple Cardiovascular: normal rate Respiratory/Chest: decreased breath sounds Abdomen: normal bowel sounds, non tender, soft Extremities: non-tender Hilton Taylor MD Nov 01, 2018 09:05
--- NOTE | 2018-11-01 09:28 | NUR ---
NURSE NOTES: Informed Dr. Taylor regarding active rectal bleeding. Dr. Taylor said he ordered something for that already.
--- NOTE | 2018-11-01 10:54 | Nephrology Progress Note ---
Assessment/Plan Plan s/p transfusion.Worsening Anemia. ESRD HD MWF+ HD Patient has no family, no DPOA. Signed for her transfusion SOB - see orders. CXR CHF. s/p Endoscopies - Large Esophageal Ulcer R/O Chrystal Esophagitis. Patient with recurrent and severe oral thrush. ID on the case. m/p this is the origin of the GI bleed. (Colonoscopy -polyps. Biopsied). DC to SNF held. Hb dropped again. HD + transfusion tomorrow. Subjective Subjective Less SOB, Less coughing. GI noted. Post ensoscopies (upper+lower) Objective Objective Last 24 Hour Vital Signs Date Time Temp Pulse Resp B/P (MAP) Pulse Ox O2 Delivery O2 Flow Rate FiO2 11/01/18 08:55 106/43 11/01/18 08:33 78 106/43 11/01/18 08:30 77 11/01/18 08:00 Room Air 11/01/18 08:00 97.9 78 22 106/43 (64) 98 11/01/18 07:22 96 Venturi Mask 12.0 50 11/01/18 07:22 60 14 Venturi Mask 12.0 50 11/01/18 07:22 Venturi Mask 12.0 50 11/01/18 04:00 98.2 96 22 108/50 (69) 98 11/01/18 04:00 83 11/01/18 00:00 98.1 91 22 108/50 (69) 98 11/01/18 00:00 93 10/31/18 21:00 Room Air 10/31/18 21:00 117 123/62 10/31/18 21:00 120 10/31/18 20:59 123/62 10/31/18 20:00 99.5 117 24 123/62 (82) 98 10/31/18 19:22 99 Non-Rebreather 15.0 100 10/31/18 19:22 77 18 Non-Rebreather 15.0 100 10/31/18 19:22 Non-Rebreather 15.0 100 10/31/18 16:31 97.8 76 18 137/59 (85) 98 10/31/18 16:03 97.8 76 18 139/55 (83) 82 10/31/18 15:38 96.1 106 19 138/69 (92) 78 10/31/18 11:51 98.5 67 19 128/59 (82) 97 10/31/18 11:09 70 14 99 Intake and Output 10/31/18 11/01/18 18:59 06:59 Intake Total 320 ml 580 ml Output Total 0 ml Balance 320 ml 580 ml Free Water 40 ml 100 ml Tube Feeding 280 ml 480 ml Output Urine Total 0 ml # Bowel Movements 2 2 Laboratory Tests 10/31/18 15:45: Arterial Blood pH 7.504H, Arterial Blood Partial Pressure CO2 35.8, Arterial Blood Partial Pressure O2 53.8L, Arterial Blood HCO3 27.5H, Arterial Blood Oxygen Saturation 84.9*L, Arterial Blood Base Excess 4.4H, Zachary Test Positive 10/31/18 16:58: Arterial Blood pH 7.536H, Arterial Blood Partial Pressure CO2 31.4L, Arterial Blood Partial Pressure O2 53.5L, Arterial Blood HCO3 26.0, Arterial Blood Oxygen Saturation 88.4*L, Arterial Blood Base Excess 3.6H, Zachary Test Positive 11/01/18 04:03: White Blood Count 11.9H, Red Blood Count 2.52L, Hemoglobin 8.2L, Hematocrit 25.3L, Mean Corpuscular Volume 100H, Mean Corpuscular Hemoglobin 32.4H, Mean Corpuscular Hemoglobin Concent 32.3, Red Cell Distribution Width 16.0H, Platelet Count 233, Mean Platelet Volume 5.5L, Neutrophils (%) (Auto) , Lymphocytes (%) (Auto) , Monocytes (%) (Auto) , Eosinophils (%) (Auto) , Basophils (%) (Auto) , Differential Total Cells Counted 100, Neutrophils % ( Manual) 87H, Lymphocytes % (Manual) 4L, Monocytes % (Manual) 7, Eosinophils % ( Manual) 0, Basophils % (Manual) 0, Band Neutrophils 2, Platelet Estimate Adequate, Platelet Morphology Normal, Hypochromasia 2+, Anisocytosis 1+, Sodium Level 137, Potassium Level 3.7, Chloride Level 97L, Carbon Dioxide Level 28, Anion Gap 12, Blood Urea Nitrogen 71H, Creatinine 3.2H, Estimat Glomerular Filtration Rate , Glucose Level 213H, Calcium Level 8.7 Height (Feet): 5 Height (Inches): 5.00 Weight (Pounds): 123 Objective CV RR Cachechtic Lungs B wheezes Abd SNT. BS + PEG. E M. wasting Shechter,Pagiel MD Nov 01, 2018 10:54
[2018-11-01] MEDS ORDERED: Heparin Sod 1000 units/ml 10ml IV PRN (10:57)
--- NOTE | 2018-11-01 11:03 | NUR ---
NURSE NOTES: Dr. Cannon informed about decreased in Hgb level and ordered extra hemodialysis for tomorrow (11/02/18). Called [facility] and spoke with Leonor from [facility] to confirm the dialysis for tomorrow.
--- NOTE | 2018-11-01 11:04 | NUR ---
NURSE NOTES: Dr. Cannon also ordered 2 units of PRBC while HD for tomorrow. Will endorse.
[2018-11-01 12:00] VITALS: BP 112/48
[2018-11-01] MEDS: Sucralfate 1gm tab GT SCH ×3 (12:03→20:44)
--- NOTE | 2018-11-01 14:15 | Consultation ---
DATE OF CONSULTATION: 11/01/2018 INFECTIOUS DISEASES CONSULTATION CONSULTING PHYSICIAN: Deuce Lewis M.D. REFERRING PHYSICIAN: Raul Cannon M.D. REASON FOR CONSULTATION: Possible Chrystal esophagitis. HISTORY OF PRESENTING ILLNESS: This is a 73-year-old lady with history of diabetes, schizophrenia, hypothyroidism, renal failure on dialysis, who comes in after she pulled her needle during the dialysis and lost some blood. She was also found to have mouth ulcers and esophageal ulcers and an Infectious Diseases consultation has been obtained for antibiotics. PAST MEDICAL HISTORY: 1. History of diabetes. 2. Schizophrenia. 3. Renal failure, on dialysis. 4. Hypothyroidism. SOCIAL HISTORY: Unknown. FAMILY HISTORY: Unknown. REVIEW OF SYSTEMS: Unable to obtain currently. MEDICATIONS: As an inpatient, she is on fluconazole, sucralfate, heparin, vitamin B, C, folic acid, vitamin D, levothyroxine, Epogen, minoxidil, MiraLAX, amlodipine, insulin, Prevacid, Tylenol, albuterol, ipratropium, Robitussin, and Reglan. ALLERGIES: No known drug allergies. PHYSICAL EXAMINATION: VITAL SIGNS: Temperature of 97.9, T-max of 99.5, pulse of 78, respiratory rate of 22, blood pressure 106/43, and O2 saturation of 98%. HEENT: Pupils equally reactive to light. Mouth thrush noted with ulcers on the lip. NECK: Supple. No adenopathy. No JVD. CARDIOVASCULAR: Regular rate and rhythm. No murmurs. LUNGS: Clear to auscultation bilaterally. No crackles. No wheezes. ABDOMEN: Soft and nontender. G-tube site appears clean. EXTREMITIES: No cyanosis, no clubbing, no edema. LABORATORY AND DIAGNOSTIC DATA: White count 11.9, hemoglobin 8.2, hematocrit 25.3, MCV 100, platelet count of 233 with neutrophils of 87%. Sodium 137, potassium 3.7, chloride 97, bicarbonate 28, BUN 71, creatinine 3.2, glucose 213, calcium 8.7. Rectal swab was positive for VRE. Nasal swab was negative for MRSA. Chest x-ray is showing cardiomegaly. ASSESSMENT: This is a 73-year-old lady with history of schizophrenia, hypothyroidism, renal failure on dialysis, who comes in and is found to have. 1. Mouth ulcers, would like to rule out herpes of the mouth. 2. She has thrush, would like to rule out Chrystal esophagitis. 3. Renal failure. 4. We would also like to rule out CMV esophagitis. 5. Schizophrenia. PLAN: 1. Continue fluconazole. 2. We will start the patient on acyclovir. 3. We will order a CMV PCR. 4. We will follow up the patient clinically. I would like to thank, Dr. Cannon, for this consultation. Deuce Lewis M.D. DR: YOEL JOB#: [id number] CC: Raul Cannon M.D.; Fax#: [phone]
[2018-11-01 16:00] VITALS: BP 109/52
--- NOTE | 2018-11-01 19:18 | NUR ---
HAND-OFF: Report given to WILIAM Bills. Stable condition.
--- NOTE | 2018-11-01 19:30 | NUR ---
NURSE NOTES: Report received from WILIAM Freitas. Received Pt is resting on the bed and able to response to verbal stimuli. Non-verbal. No s/s of pain at this time. On O2 4L via nasal cannula and SaO2 96% noted. Given oral suction. No sign of acute distress noted. GT site intact with ongoing feeding and no residual noted. HOB elevated. IV site intact and no sign of infiltration noted. AV shunt noted on left upper arm with swelling. Pt scheduled Hemodialysis tomorrow and blood transfusion with hemodialysis. Hemodialysis center contacted by previous nurse. Placed fall precaution. Call light within reach. Will continue to care plan.
[2018-11-01 20:00] VITALS: BP 114/54
[2018-11-01] MEDS: Acyclovir 200mg Cap GT SCH (20:44)
[2018-11-01] MEDS ORDERED: Acyclovir 200mg Cap GT SCH (21:00)
[2018-11-01] MEDS: Miralax 17gm pkt GT SCH (21:00)
[2018-11-02] VITALS: BP 105/52
[2018-11-02] MEDS: NovoLOG Insulin Flexpen SUBQ SCH ×5 (00:12→23:58)
[2018-11-02 04:00] VITALS: BP 100/50
[2018-11-02 05:46] LABS: HEMATOCRIT 21.3 % (37.0-47.0); MEAN CORPUSCULAR VOLUME 99 FL (80-99); PLATELET COUNT 211 K/UL (150-450); RED BLOOD COUNT 2.15 M/UL (4.20-5.40); RED CELL DISTRIBUTION WIDTH 16.3 % (11.6-14.8); WHITE BLOOD COUNT 9.1 K/UL (4.8-10.8)
[2018-11-02 05:54] LABS: HEMOGLOBIN 6.8 G/DL (12.0-16.0)
[2018-11-02 06:02] LABS: ALANINE AMINOTRANSFERASE 22 U/L (12-78); ALBUMIN 2.1 G/DL (3.4-5.0); ALBUMIN/GLOBULIN RATIO 0.5 (1.0-2.7); ALKALINE PHOSPHATASE 119 U/L (46-116); ANION GAP 11 mmol/L (5-15); ASPARTATE AMINO TRANSFERASE 21 U/L (15-37); BILIRUBIN,TOTAL 0.6 MG/DL (0.2-1.0); BLOOD UREA NITROGEN 96 mg/dL (7-18); CARBON DIOXIDE 27 MMOL/L (21-32); CHLORIDE 94 MMOL/L (98-107); CREATININE 3.8 MG/DL (0.55-1.30); POTASSIUM 3.8 MMOL/L (3.5-5.1); SODIUM 132 MMOL/L (136-145)
--- NOTE | 2018-11-02 07:35 | NUR ---
HAND-OFF: Report given to WILIAM Nunn. Pt is resting on the bed and no sign of acute respiratory distress noted. Pt scheduled hemodialysis with blood transfusion today. endorsed incoming nurse.
--- NOTE | 2018-11-02 07:40 | NUR ---
NURSE NOTES: Report received from Sanju Dixon RN.Pt resting in bed awake,alert,noted no resp distress on 4l NCno signs of pain or discomfort sR on the monitor,GTF Nepro at 40 ml/hr ,pt oliguric,IV site to RAC intact,skin warm and dry ,SR up x2,HOB elevated,bed lock in lowest position,will continue with plan of care.
[2018-11-02 08:00] VITALS: BP 109/46
--- NOTE | 2018-11-02 08:29 | General Progress Note ---
Assessment/Plan Problem List: (1) Hematemesis ICD Codes: K92.0 - Hematemesis SNOMED: 2417953 (2) Gastrostomy tube dependent ICD Codes: Z93.1 - Gastrostomy status SNOMED: 383251702, 270365904 (3) Hemorrhage of arteriovenous fistula ICD Codes: T82.838A - Hemorrhage due to vascular prosthetic devices, implants and grafts, initial encounter SNOMED: 065554875 Qualifiers: Qualified Codes: T82.838A - Hemorrhage due to vascular prosthetic devices, implants and grafts, initial encounter (4) Anemia ICD Codes: D64.9 - Anemia, unspecified SNOMED: 868429580 Qualifiers: Qualified Codes: D64.9 - Anemia, unspecified Assessment/Plan FINDINGS: 1. Large esophageal ulceration, active bleeding, most probably the source of bleeding. 2. Hiatal hernia. 3. Gastritis. 4. Duodenitis. 5. Two colonic polyps removed. 6. Internal hemorrhoid ppi and carafate reflux measures fu biopsy results GTF prn blood transfusion>>one unit for today Subjective ROS Limited/Unobtainable: No Allergies: Coded Allergies: No Known Allergies (Unverified , 05/11/18) Objective Last 24 Hour Vital Signs Date Time Temp Pulse Resp B/P (MAP) Pulse Ox O2 Delivery O2 Flow Rate FiO2 11/02/18 07:08 80 16 Nasal Cannula 4.0 36 11/02/18 07:08 94 4.0 36 11/02/18 07:08 Nasal Cannula 4.0 36 11/02/18 04:00 Nasal Cannula 4.0 11/02/18 04:00 80 11/02/18 04:00 98.0 78 18 100/50 (67) 97 11/02/18 00:00 Nasal Cannula 4.0 11/02/18 00:00 98.0 84 18 105/52 (69) 99 11/02/18 00:00 84 11/01/18 21:00 98 Nasal Cannula 4.0 36 11/01/18 21:00 Nasal Cannula 4.0 36 11/01/18 21:00 85 18 Nasal Cannula 4.0 36 11/01/18 20:48 122/60 11/01/18 20:00 81 11/01/18 20:00 Nasal Cannula 4.0 11/01/18 20:00 98.1 82 18 114/54 (74) 95 2/2/19 16:32 84 11/01/18 16:00 98.1 82 22 109/52 (71) 100 11/01/18 16:00 Nasal Cannula 4.0 11/01/18 12:00 Nasal Cannula 4.0 11/01/18 12:00 80 11/01/18 12:00 97.8 78 21 112/48 (69) 100 11/01/18 08:55 106/43 11/01/18 08:33 78 106/43 11/01/18 08:30 77 Intake and Output 11/01/18 11/02/18 18:59 06:59 Intake Total 630 ml 440 ml Balance 630 ml 440 ml Free Water 150 ml Tube Feeding 480 ml 440 ml # Bowel Movements 1 Laboratory Tests 11/01/18 11:45: Cytomegalovirus DNA PCR copies/ml [Pending], Cytomegalovirus DNA PCR log10 [ Pending] 11/02/18 04:00: White Blood Count 9.1, Red Blood Count 2.15L, Hemoglobin 6.8*L, Hematocrit 21.3L , Mean Corpuscular Volume 99, Mean Corpuscular Hemoglobin 31.5H, Mean Corpuscular Hemoglobin Concent 31.7L, Red Cell Distribution Width 16.3H, Platelet Count 211, Mean Platelet Volume 5.1L, Neutrophils (%) (Auto) , Lymphocytes (%) (Auto) , Monocytes (%) (Auto) , Eosinophils (%) (Auto) , Basophils (%) (Auto) , Neutrophils % (Manual) [Pending], Lymphocytes % (Manual) [Pending], Platelet Estimate [Pending], Platelet Morphology [Pending], Sodium Level 132L, Potassium Level 3.8, Chloride Level 94L, Carbon Dioxide Level 27, Anion Gap 11, Blood Urea Nitrogen 96H, Creatinine 3.8H, Estimat Glomerular Filtration Rate , Glucose Level 165H, Calcium Level 8.0L, Total Bilirubin 0.6, Aspartate Amino Transf (AST/SGOT) 21, Alanine Aminotransferase (ALT/SGPT) 22, Alkaline Phosphatase 119H, Total Protein 6.1L, Albumin 2.1L, Globulin 4.0, Albumin/Globulin Ratio 0.5L Height (Feet): 5 Height (Inches): 5.00 Weight (Pounds): 124 General Appearance: no apparent distress EENT: normal ENT inspection Neck: supple Cardiovascular: normal rate Respiratory/Chest: decreased breath sounds Abdomen: normal bowel sounds, non tender, soft Extremities: non-tender Hilton Taylor MD Nov 02, 2018 08:29
[2018-11-02] MEDS ORDERED: Fluconazole 100mg tab GT SCH (09:00)
[2018-11-02] MEDS: Acyclovir 200mg Cap GT SCH ×2 (09:39→21:02)
[2018-11-02] MEDS: Minoxidil 2.5mg tab GT SCH ×2 (09:39→21:00)
[2018-11-02] MEDS: Fluconazole 100mg tab GT SCH (09:39)
[2018-11-02] MEDS: Vitamin D 1000 IU Tab GT SCH (09:40)
[2018-11-02] MEDS: Nephrovite tab (Rena-Vite) GT SCH (09:40)
[2018-11-02] MEDS: Sucralfate 1gm tab GT SCH ×4 (09:40→21:02)
--- NOTE | 2018-11-02 10:12 | Nephrology Progress Note ---
Assessment/Plan Plan Worsening Anemia. ESRD HD MWF+ HD Patient has no family, no DPOA. Signed for her transfusion SOB - see orders. CXR CHF. s/p Endoscopies - Large Esophageal Ulcer R/O Chrystal Esophagitis. Patient with recurrent and severe oral thrush. ID on the case. m/p this is the origin of the GI bleed. (Colonoscopy -polyps. Biopsied). DC to SNF held. Hb dropped again. HD + transfusion today. Subjective Subjective Less SOB, Less coughing. Objective Objective Last 24 Hour Vital Signs Date Time Temp Pulse Resp B/P (MAP) Pulse Ox O2 Delivery O2 Flow Rate FiO2 11/02/18 09:40 80 109/46 11/02/18 09:39 109/46 11/02/18 08:00 99.6 80 18 109/46 (67) 96 11/02/18 07:47 85 11/02/18 07:08 80 16 Nasal Cannula 4.0 36 11/02/18 07:08 94 4.0 36 11/02/18 07:08 Nasal Cannula 4.0 36 11/02/18 04:00 Nasal Cannula 4.0 11/02/18 04:00 80 11/02/18 04:00 98.0 78 18 100/50 (67) 97 11/02/18 00:00 Nasal Cannula 4.0 11/02/18 00:00 98.0 84 18 105/52 (69) 99 11/02/18 00:00 84 11/01/18 21:00 98 Nasal Cannula 4.0 36 11/01/18 21:00 Nasal Cannula 4.0 36 11/01/18 21:00 85 18 Nasal Cannula 4.0 36 11/01/18 20:48 122/60 11/01/18 20:00 81 11/01/18 20:00 Nasal Cannula 4.0 11/01/18 20:00 98.1 82 18 114/54 (74) 95 11/01/18 16:32 84 11/01/18 16:00 98.1 82 22 109/52 (71) 100 11/01/18 16:00 Nasal Cannula 4.0 11/01/18 12:00 Nasal Cannula 4.0 11/01/18 12:00 80 11/01/18 12:00 97.8 78 21 112/48 (69) 100 Intake and Output 11/01/18 11/02/18 18:59 06:59 Intake Total 630 ml 440 ml Balance 630 ml 440 ml Free Water 150 ml Tube Feeding 480 ml 440 ml # Bowel Movements 1 Laboratory Tests 11/01/18 11:45: Cytomegalovirus DNA PCR copies/ml [Pending], Cytomegalovirus DNA PCR log10 [ Pending] 11/02/18 04:00: White Blood Count 9.1, Red Blood Count 2.15L, Hemoglobin 6.8*L, Hematocrit 21.3L , Mean Corpuscular Volume 99, Mean Corpuscular Hemoglobin 31.5H, Mean Corpuscular Hemoglobin Concent 31.7L, Red Cell Distribution Width 16.3H, Platelet Count 211, Mean Platelet Volume 5.1L, Neutrophils (%) (Auto) , Lymphocytes (%) (Auto) , Monocytes (%) (Auto) , Eosinophils (%) (Auto) , Basophils (%) (Auto) , Differential Total Cells Counted 100, Neutrophils % ( Manual) 87H, Lymphocytes % (Manual) 9L, Monocytes % (Manual) 4, Eosinophils % ( Manual) 0, Basophils % (Manual) 0, Band Neutrophils 0, Platelet Estimate Adequate, Platelet Morphology Normal, Polychromasia 1+, Hypochromasia 1+, Anisocytosis 2+, Sodium Level 132L, Potassium Level 3.8, Chloride Level 94L, Carbon Dioxide Level 27, Anion Gap 11, Blood Urea Nitrogen 96H, Creatinine 3.8H , Estimat Glomerular Filtration Rate , Glucose Level 165H, Calcium Level 8.0L, Total Bilirubin 0.6, Aspartate Amino Transf (AST/SGOT) 21, Alanine Aminotransferase (ALT/SGPT) 22, Alkaline Phosphatase 119H, Total Protein 6.1L, Albumin 2.1L, Globulin 4.0, Albumin/Globulin Ratio 0.5L Height (Feet): 5 Height (Inches): 5.00 Weight (Pounds): 124 Objective CV RR Cachechtic Lungs B wheezes Abd SNT. BS + PEG. E Raul Veras MD Nov 02, 2018 10:12
--- NOTE | 2018-11-02 10:39 | Infectious Diseases Prog Note ---
Assessment/Plan Assessment/Plan A: 1. Mouth ulcers, would like to rule out herpes of the mouth. 2. She has thrush, would like to rule out Chrystal esophagitis. 3. Renal failure, ESRD 4. We would also like to rule out CMV esophagitis. 5. Schizophrenia. 6. Esophageal ulcer 7. Anemia 8. GI bleeding 9. DM P: Continue Acyclovir & Fluconazole will f/u cultures Subjective ROS Limited/Unobtainable: Yes Constitutional: Reports: no symptoms Allergies: Coded Allergies: No Known Allergies (Unverified , 05/11/18) Objective Vital Signs Last 24 Hour Vital Signs Date Time Temp Pulse Resp B/P (MAP) Pulse Ox O2 Delivery O2 Flow Rate FiO2 11/02/18 09:40 80 109/46 11/02/18 09:39 109/46 11/02/18 08:00 99.6 80 18 109/46 (67) 96 11/02/18 07:47 85 11/02/18 07:08 80 16 Nasal Cannula 4.0 36 11/02/18 07:08 94 4.0 36 11/02/18 07:08 Nasal Cannula 4.0 36 11/02/18 04:00 Nasal Cannula 4.0 11/02/18 04:00 80 11/02/18 04:00 98.0 78 18 100/50 (67) 97 11/02/18 00:00 Nasal Cannula 4.0 11/02/18 00:00 98.0 84 18 105/52 (69) 99 11/02/18 00:00 84 11/01/18 21:00 98 Nasal Cannula 4.0 36 11/01/18 21:00 Nasal Cannula 4.0 36 11/01/18 21:00 85 18 Nasal Cannula 4.0 36 11/01/18 20:48 122/60 11/01/18 20:00 81 11/01/18 20:00 Nasal Cannula 4.0 11/01/18 20:00 98.1 82 18 114/54 (74) 95 11/01/18 16:32 84 11/01/18 16:00 98.1 82 22 109/52 (71) 100 11/01/18 16:00 Nasal Cannula 4.0 11/01/18 12:00 Nasal Cannula 4.0 11/01/18 12:00 80 11/01/18 12:00 97.8 78 21 112/48 (69) 100 Height (Feet): 5 Height (Inches): 5.00 Weight (Pounds): 124 General Appearance: no acute distress HEENT: mucous membranes moist, other - pale conjunctiva Respiratory/Chest: lungs clear Cardiovascular: normal rate, other - left arm AV graft Abdomen: soft, non tender, other - GT feeding Extremities: no edema Neurologic/Psychiatric: alert, responsive Laboratory Tests Test 11/01/18 11:45 11/02/18 04:00 Cytomegalovirus DNA PCR copies/ml Pending Cytomegalovirus DNA PCR log10 Pending White Blood Count 9.1 K/UL (4.8-10.8) Red Blood Count 2.15 M/UL (4.20-5.40) L Hemoglobin 6.8 G/DL (12.0-16.0) *L Hematocrit 21.3 % (37.0-47.0) L Mean Corpuscular Volume 99 FL (80-99) Mean Corpuscular Hemoglobin 31.5 PG (27.0-31.0) H Mean Corpuscular Hemoglobin Concent 31.7 G/DL (32.0-36.0) L Red Cell Distribution Width 16.3 % (11.6-14.8) H Platelet Count 211 K/UL (150-450) Mean Platelet Volume 5.1 FL (6.5-10.1) L Neutrophils (%) (Auto) % (45.0-75.0) Lymphocytes (%) (Auto) % (20.0-45.0) Monocytes (%) (Auto) % (1.0-10.0) Eosinophils (%) (Auto) % (0.0-3.0) Basophils (%) (Auto) % (0.0-2.0) Differential Total Cells Counted 100 Neutrophils % (Manual) 87 % (45-75) H Lymphocytes % (Manual) 9 % (20-45) L Monocytes % (Manual) 4 % (1-10) Eosinophils % (Manual) 0 % (0-3) Basophils % (Manual) 0 % (0-2) Band Neutrophils 0 % (0-8) Platelet Estimate Adequate Platelet Morphology Normal Polychromasia 1+ Hypochromasia 1+ Anisocytosis 2+ Sodium Level 132 MMOL/L (136-145) L Potassium Level 3.8 MMOL/L (3.5-5.1) Chloride Level 94 MMOL/L (98-107) L Carbon Dioxide Level 27 MMOL/L (21-32) Anion Gap 11 mmol/L (5-15) Blood Urea Nitrogen 96 mg/dL (7-18) H Creatinine 3.8 MG/DL (0.55-1.30) H Estimat Glomerular Filtration Rate mL/min (>60) Glucose Level 165 MG/DL (74-106) H Calcium Level 8.0 MG/DL (8.5-10.1) L Total Bilirubin 0.6 MG/DL (0.2-1.0) Aspartate Amino Transf (AST/SGOT) 21 U/L (15-37) Alanine Aminotransferase (ALT/SGPT) 22 U/L (12-78) Alkaline Phosphatase 119 U/L (46-116) H Total Protein 6.1 G/DL (6.4-8.2) L Albumin 2.1 G/DL (3.4-5.0) L Globulin 4.0 g/dL Albumin/Globulin Ratio 0.5 (1.0-2.7) L Current Medications Medications (Trade) Dose Ordered Sig/Konrad Route PRN Reason Start Time Stop Time Status Last Admin Dose Admin Acetaminophen (Tylenol) 650 mg Q4H PRN GT Mild Pain/Temp > 100.5 10/31/18 18:30 11/23/18 18:29 Acyclovir (Zovirax) 200 mg Q12HR GT 11/01/18 21:00 12/01/18 20:59 11/02/18 09:39 Albuterol/ Ipratropium (Albuterol/ Ipratropium) 3 ml Q6H PRN HHN SOB and WHEEZING 10/31/18 18:30 11/02/18 18:29 Amlodipine Besylate (Norvasc) 10 mg DAILY GT 10/31/18 20:00 11/30/18 19:59 11/02/18 09:40 Dextrose (Dextrose 50%) 25 ml Q30M PRN IV Hypoglycemia 10/31/18 18:30 11/23/18 18:29 Dextrose (Dextrose 50%) 50 ml Q30M PRN IV Hypoglycemia 10/31/18 18:30 11/23/18 18:48 Epoetin Chau (Epoetin Chau-EPBX(NON ESRD)) 10,000 unit SAT-SAT-SAT SUBQ 10/31/18 21:00 11/30/18 20:59 10/31/18 21:00 Fluconazole (Diflucan) 100 mg DAILY GT 11/02/18 09:00 11/09/18 08:59 11/02/18 09:39 Guaifenesin/ Dextromethorphan (Robitussin DM Syrup) 10 ml Q8H PRN GT For Cough 10/31/18 18:30 11/27/18 18:29 Heparin Sodium (Porcine) (Heparin Sod 1000 units/ml 10ml) 500 unit ONCE PRN IV DIALYSIS 11/01/18 10:57 11/04/18 23:59 Insulin Aspart (NovoLOG) EVERY 6 HOURS SUBQ 10/31/18 20:00 11/30/18 19:59 11/02/18 06:22 Lansoprazole (Prevacid) 30 mg BID GT 10/31/18 20:00 11/30/18 19:59 11/02/18 09:40 Levothyroxine Sodium (Synthroid) 150 mcg DAILY@0630 GT 11/01/18 06:30 11/24/18 06:29 11/02/18 06:23 Metoclopramide HCl (Reglan) 10 mg Q6H PRN IVP Nausea & Vomiting 10/31/18 18:30 11/23/18 18:29 Minoxidil (Loniten) 2.5 mg Q12HR GT 10/31/18 21:00 11/23/18 20:59 11/02/18 09:39 Polyethylene Glycol (Miralax) 17 gm BEDTIME GT 10/31/18 21:00 11/23/18 20:59 10/31/18 21:01 Sodium Chloride 1,000 ml @ 500 mls/hr Q2H PRN IVLG sbp<90 during hd 11/01/18 10:57 11/04/18 23:59 Sucralfate (Carafate) 1 gm FOUR TIMES A DAY GT 11/01/18 13:00 12/01/18 12:59 11/02/18 09:40 Vitamin B Complex/ Vit C/Folic Acid (Nephrovite) 1 tab DAILY GT 11/01/18 09:00 11/24/18 08:59 11/02/18 09:40 Vitamin D (Vitamin D) 1,000 intlu DAILY GT 11/01/18 09:00 11/24/18 08:59 11/02/18 09:40 Kaden Aguilar MD Nov 02, 2018 10:39
[2018-11-02 11:46] VITALS: BP 99/48
[2018-11-02 12:16] LABS: HEMATOCRIT 22.2 % (37.0-47.0); HEMOGLOBIN 7.1 G/DL (12.0-16.0); MEAN CORPUSCULAR VOLUME 100 FL (80-99); PLATELET COUNT 180 K/UL (150-450); RED BLOOD COUNT 2.23 M/UL (4.20-5.40); RED CELL DISTRIBUTION WIDTH 16.5 % (11.6-14.8)
--- NOTE | 2018-11-02 12:20 | NUR ---
NURSE NOTES: Dr Woods called asking re status of AV shunt to NENA,informed re big sewlling to site,orders given and noted.
[2018-11-02 13:16] LABS: ANION GAP 11 mmol/L (5-15); BLOOD UREA NITROGEN 100 mg/dL (7-18); CALCIUM 8.1 MG/DL (8.5-10.1); CARBON DIOXIDE 28 MMOL/L (21-32); CHLORIDE 94 MMOL/L (98-107); POTASSIUM 4.4 MMOL/L (3.5-5.1); SODIUM 133 MMOL/L (136-145)
--- NOTE | 2018-11-02 14:38 | NUR ---
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 * Increased kcal/prot needs R/T wound healing, renal dysfunction as evidenced by pt admitted w/ sacral full thickness open wound, w/ ESRD dx, on HD. CURRENT TF: NEPRO @40ml/hr x22 hrs ENTERAL NUTRITION RECOMMENDATIONS: Nepro @ 42ml/hr x 22 hrs to provide 924ml, 1663kcal, 74g prot, 672ml free water, 149g carbs * Increase TF rate to 42ml/hr x 22 hrs -> to better meet est kcal and prot needs. * HOLD TF 1 hr before and after synthroid meds * HOB over 30 degrees/ water flush per MD ADDITIONAL RECOMMENDATIONS: * Calibrated bedscale wt for accurate CBW, obtain post HD for dry wt * Wound healing: add Zeke 1pkt BID + nephrovite x1 daily ->add Vit C per Nephro MD * Consider long acting insulin for improved glycemic control * Check lytes daily `* RECALIBRATE BED SCALE-> ADDED WOUND MATTRESS + FLOOR TXR *
--- NOTE | 2018-11-02 14:50 | NUR ---
NURSE NOTES: Spoke with Dr. Cannon via telephone, Informed that Dr. Thompson ordered Permacath placement for HD and needs Doctors note consent because there's no family contact in the chart. said that he will put in his notes for consent.
--- NOTE | 2018-11-02 15:07 | Nephrology Progress Note ---
Assessment/Plan Plan Worsening Anemia. ESRD HD MWF+ HD Patient has no family, no DPOA. Signed for her transfusion SOB - see orders. CXR CHF. s/p Endoscopies - Large Esophageal Ulcer R/O Chrystal Esophagitis. Patient with recurrent and severe oral thrush. ID on the case. m/p this is the origin of the GI bleed. (Colonoscopy -polyps. Biopsied). DC to SNF held. Hb dropped again. HD + transfusion today. Couldn't dialyze patient due to hematoma Lt. upper arm. Needs a PermCath. Patient has no family or DPOA. PermCath is urgent to maintain life! Subjective Subjective Less SOB, Less coughing. Objective Objective Last 24 Hour Vital Signs Date Time Temp Pulse Resp B/P (MAP) Pulse Ox O2 Delivery O2 Flow Rate FiO2 11/02/18 12:00 Nasal Cannula 4.0 11/02/18 11:50 81 11/02/18 11:46 98.5 81 20 99/48 (65) 95 11/02/18 09:40 80 109/46 11/02/18 09:39 109/46 11/02/18 08:00 99.6 80 18 109/46 (67) 96 11/02/18 08:00 Nasal Cannula 4.0 11/02/18 07:47 85 11/02/18 07:08 80 16 Nasal Cannula 4.0 36 11/02/18 07:08 94 4.0 36 11/02/18 07:08 Nasal Cannula 4.0 36 11/02/18 04:00 Nasal Cannula 4.0 11/02/18 04:00 80 11/02/18 04:00 98.0 78 18 100/50 (67) 97 11/02/18 00:00 Nasal Cannula 4.0 11/02/18 00:00 98.0 84 18 105/52 (69) 99 11/02/18 00:00 84 11/01/18 21:00 98 Nasal Cannula 4.0 36 11/01/18 21:00 Nasal Cannula 4.0 36 11/01/18 21:00 85 18 Nasal Cannula 4.0 36 11/01/18 20:48 122/60 11/01/18 20:00 81 11/01/18 20:00 Nasal Cannula 4.0 11/01/18 20:00 98.1 82 18 114/54 (74) 95 2/2/19 16:32 84 11/01/18 16:00 98.1 82 22 109/52 (71) 100 11/01/18 16:00 Nasal Cannula 4.0 Intake and Output 11/01/18 11/02/18 18:59 06:59 Intake Total 630 ml 440 ml Balance 630 ml 440 ml Free Water 150 ml Tube Feeding 480 ml 440 ml # Bowel Movements 1 Laboratory Tests 11/02/18 04:00: White Blood Count 9.1, Red Blood Count 2.15L, Hemoglobin 6.8*L, Hematocrit 21.3L , Mean Corpuscular Volume 99, Mean Corpuscular Hemoglobin 31.5H, Mean Corpuscular Hemoglobin Concent 31.7L, Red Cell Distribution Width 16.3H, Platelet Count 211, Mean Platelet Volume 5.1L, Neutrophils (%) (Auto) , Lymphocytes (%) (Auto) , Monocytes (%) (Auto) , Eosinophils (%) (Auto) , Basophils (%) (Auto) , Differential Total Cells Counted 100, Neutrophils % ( Manual) 87H, Lymphocytes % (Manual) 9L, Monocytes % (Manual) 4, Eosinophils % ( Manual) 0, Basophils % (Manual) 0, Band Neutrophils 0, Platelet Estimate Adequate, Platelet Morphology Normal, Polychromasia 1+, Hypochromasia 1+, Anisocytosis 2+, Sodium Level 132L, Potassium Level 3.8, Chloride Level 94L, Carbon Dioxide Level 27, Anion Gap 11, Blood Urea Nitrogen 96H, Creatinine 3.8H , Estimat Glomerular Filtration Rate , Glucose Level 165H, Calcium Level 8.0L, Total Bilirubin 0.6, Aspartate Amino Transf (AST/SGOT) 21, Alanine Aminotransferase (ALT/SGPT) 22, Alkaline Phosphatase 119H, Total Protein 6.1L, Albumin 2.1L, Globulin 4.0, Albumin/Globulin Ratio 0.5L 11/02/18 11:05: White Blood Count 9.0, Red Blood Count 2.23L, Hemoglobin 7.1L, Hematocrit 22.2L , Mean Corpuscular Volume 100H, Mean Corpuscular Hemoglobin 31.7H, Mean Corpuscular Hemoglobin Concent 31.9L, Red Cell Distribution Width 16.5H, Platelet Count 180, Mean Platelet Volume 5.1L, Neutrophils (%) (Auto) , Lymphocytes (%) (Auto) , Monocytes (%) (Auto) , Eosinophils (%) (Auto) , Basophils (%) (Auto) , Differential Total Cells Counted 100, Neutrophils % ( Manual) 89H, Lymphocytes % (Manual) 4L, Monocytes % (Manual) 6, Eosinophils % ( Manual) 1, Basophils % (Manual) 0, Band Neutrophils 0, Platelet Estimate Adequate, Platelet Morphology Normal, Hypochromasia 1+, Anisocytosis 1+, Sodium Level 133L, Potassium Level 4.4, Chloride Level 94L, Carbon Dioxide Level 28, Anion Gap 11, Blood Urea Nitrogen 100H, Creatinine 4.0H, Estimat Glomerular Filtration Rate , Glucose Level 148H, Calcium Level 8.1L, Macrocytosis 1+ Height (Feet): 5 Height (Inches): 5.00 Weight (Pounds): 124 Objective CV RR Cachechtic Lungs B wheezes Abd SNT. BS + PEG. Raul Andrade MD Nov 02, 2018 15:07
--- NOTE | 2018-11-02 15:45 | NUR ---
NURSE NOTES: One unit of PRBC started H/H 7.1/22.2,V/S monitored,stable,blood transdusion tolerated.
[2018-11-02 16:00] VITALS: BP 100/42
--- NOTE | 2018-11-02 16:00 | NUR ---
NURSE NOTES: IV insertion done to RT foot with 22 G angio x1 attempt,Dr Clarke aware,pt is a hard stick ,unable to insert IV to RT arm.
--- NOTE | 2018-11-02 19:30 | NUR ---
HAND-OFF: Report given to Sanju Dixon RN still with ongoing blood transfusion. .
--- NOTE | 2018-11-02 19:30 | NUR ---
NURSE NOTES: Received Pt is resting on the bed and awake and confused. On Tele monitor with SR. On O2 4L via nasal cannula and SaO2 97% noted. Given oral suction. Finished blood transfusion without side effect. V/S stable. Dressing is dry to intact. Changed position. On G-tube feeding as ordered and tolerated well. No residual noted. Placed fall precaution. Will continue to care plan.
--- NOTE | 2018-11-02 19:44 | NUR ---
NURSE NOTES: Pt turned and repositioned, Oral secretions suctioned PRN,pt with prod coughing on and off.
[2018-11-02 20:00] VITALS: BP 116/59
[2018-11-02] MEDS: Miralax 17gm pkt GT SCH (21:00)
[2018-11-03] VITALS (10 sets, daily range): BP systolic 96–140; BP diastolic 42–67
[2018-11-03 05:54] LABS: HEMATOCRIT 22.3 % (37.0-47.0); HEMOGLOBIN 7.3 G/DL (12.0-16.0); MEAN CORPUSCULAR VOLUME 94 FL (80-99); PLATELET COUNT 156 K/UL (150-450); RED BLOOD COUNT 2.37 M/UL (4.20-5.40); RED CELL DISTRIBUTION WIDTH 16.8 % (11.6-14.8)
[2018-11-03] MEDS ORDERED: Epoetin Alfa-EPBX(ESRD on dialysis)10,000 unit/ml vial SUBQ ONE (06:00)
[2018-11-03] MEDS: NovoLOG Insulin Flexpen SUBQ SCH ×3 (06:00→17:46)
[2018-11-03 06:15] LABS: ANION GAP 11 mmol/L (5-15); BLOOD UREA NITROGEN 112 mg/dL (7-18); CALCIUM 7.6 MG/DL (8.5-10.1); CARBON DIOXIDE 26 MMOL/L (21-32); CHLORIDE 94 MMOL/L (98-107); CREATININE 4.3 MG/DL (0.55-1.30); POTASSIUM 4.3 MMOL/L (3.5-5.1); SODIUM 131 MMOL/L (136-145)
--- NOTE | 2018-11-03 06:50 | NUR ---
NURSE NOTES: Noted Hgb : 7.3. Paged Dr. Cannon and awaiting call back.
--- NOTE | 2018-11-03 07:51 | NUR ---
HAND-OFF: Report given to WILIAM Orr. Pt is sleeping on the bed and no sign of acute distress noted. Get call back from Dr. Cannon and new order received.
--- NOTE | 2018-11-03 08:10 | NUR ---
NURSE NOTES: received pt in the bed, awake, nonverbal, vital signs stable, no co pain, no SOB, skin warm and dry to touch,left upper arm AV shunt, swollen, pt for permcath placement today, HD today, anuric, GT clump, pt NPO, bed in low position, HOB, elevated.
[2018-11-03] MEDS: Nephrovite tab (Rena-Vite) GT SCH (08:59)
[2018-11-03] MEDS: Vitamin D 1000 IU Tab GT SCH (08:59)
[2018-11-03] MEDS: Sucralfate 1gm tab GT SCH ×4 (08:59→21:33)
[2018-11-03] MEDS: Acyclovir 200mg Cap GT SCH ×2 (08:59→21:33)
[2018-11-03] MEDS: Fluconazole 100mg tab GT SCH (08:59)
[2018-11-03] MEDS: Minoxidil 2.5mg tab GT SCH ×2 (09:00→21:34)
--- NOTE | 2018-11-03 10:11 | General Progress Note ---
Progress Note Progress Note Patient with av shunt hematoma--unable to use per renal dialysis Needs permcath access for life saving dialysis therapy as recommended by renal primary medical service Rest av shunt and do not use shunt until hematoma clears Lewis Thompson MD Nov 03, 2018 10:11
--- NOTE | 2018-11-03 10:39 | GI Progress Note ---
Assessment/Plan Problems: (1) Gastrostomy tube dependent ICD Codes: Z93.1 - Gastrostomy status SNOMED: 339276379, 090724219 (2) Vomiting ICD Codes: R11.10 - Vomiting, unspecified SNOMED: 805943079 (3) Fecal impaction ICD Codes: K56.41 - Fecal impaction SNOMED: 97053845 (4) Anemia ICD Codes: D64.9 - Anemia, unspecified SNOMED: 075297383 Qualifiers: Qualified Codes: D64.9 - Anemia, unspecified (5) Malfunction of gastrostomy tube ICD Codes: K94.23 - Gastrostomy malfunction SNOMED: 724859436 (6) Hematemesis ICD Codes: K92.0 - Hematemesis SNOMED: 7759732 Status: stable, unchanged Status Narrative Discussed with Dr. Taylor. Assessment/Plan FINDINGS: 1. Large esophageal ulceration, active bleeding, most probably the source of bleeding. 2. Hiatal hernia. 3. Gastritis. 4. Duodenitis. 5. Two colonic polyps removed. 6. Internal hemorrhoid Recommendations ppi and Carafate reflux measures fu biopsy results GTF prn blood transfusion fu labs The patient was seen and examined at bedside and all new and available data was reviewed in the patients chart. I agree with the above findings, impression and plan. (Patient seen earlier today. Signature stamp does not reflect patient encounter time.). - Hilton Taylor MD Subjective Subjective Limited Objective Last 24 Hour Vital Signs Date Time Temp Pulse Resp B/P (MAP) Pulse Ox O2 Delivery O2 Flow Rate FiO2 11/03/18 09:00 96/48 11/03/18 09:00 65 96/42 11/03/18 08:00 97.9 65 24 96/42 (60) 99 11/03/18 08:00 65 11/03/18 08:00 Nasal Cannula 4.0 11/03/18 06:56 100 Nasal Cannula 4.0 36 11/03/18 06:56 64 16 Nasal Cannula 4.0 36 11/03/18 06:56 Nasal Cannula 4.0 36 11/03/18 04:00 97.5 71 20 108/53 (71) 98 11/03/18 04:00 Nasal Cannula 4.0 11/03/18 04:00 74 2/4/19 00:00 Nasal Cannula 4.0 11/03/18 00:00 97.3 96 20 128/64 (85) 96 11/02/18 22:10 79 18 Nasal Cannula 4.0 36 11/02/18 22:10 Nasal Cannula 4.0 36 11/02/18 22:10 97 Nasal Cannula 4.0 36 11/02/18 21:00 116/59 11/02/18 20:00 Nasal Cannula 4.0 11/02/18 20:00 83 11/02/18 20:00 97.8 75 20 116/59 (78) 97 11/02/18 16:00 98.7 81 100/42 (61) 20 11/02/18 16:00 Nasal Cannula 4.0 11/02/18 15:43 93 11/02/18 12:00 Nasal Cannula 4.0 11/02/18 11:50 81 11/02/18 11:46 98.5 81 20 99/48 (65) 95 Intake and Output 11/02/18 11/03/18 18:59 06:59 Intake Total 890 ml 490 ml Output Total 0 ml Balance 890 ml 490 ml Free Water 50 ml Tube Feeding 440 ml 240 ml Blood Product 100 ml 250 ml Other 300 ml Output Urine Total 0 ml Laboratory Tests Test 11/02/18 11:05 11/03/18 03:15 White Blood Count 9.0 K/UL (4.8-10.8) 7.0 K/UL (4.8-10.8) Red Blood Count 2.23 M/UL (4.20-5.40) L 2.37 M/UL (4.20-5.40) L Hemoglobin 7.1 G/DL (12.0-16.0) L 7.3 G/DL (12.0-16.0) L Hematocrit 22.2 % (37.0-47.0) L 22.3 % (37.0-47.0) L Mean Corpuscular Volume 100 FL (80-99) H 94 FL (80-99) Mean Corpuscular Hemoglobin 31.7 PG (27.0-31.0) H 30.8 PG (27.0-31.0) Mean Corpuscular Hemoglobin Concent 31.9 G/DL (32.0-36.0) L 32.7 G/DL (32.0-36.0) Red Cell Distribution Width 16.5 % (11.6-14.8) H 16.8 % (11.6-14.8) H Platelet Count 180 K/UL (150-450) 156 K/UL (150-450) Mean Platelet Volume 5.1 FL (6.5-10.1) L 5.0 FL (6.5-10.1) L Neutrophils (%) (Auto) % (45.0-75.0) % (45.0-75.0) Lymphocytes (%) (Auto) % (20.0-45.0) % (20.0-45.0) Monocytes (%) (Auto) % (1.0-10.0) % (1.0-10.0) Eosinophils (%) (Auto) % (0.0-3.0) % (0.0-3.0) Basophils (%) (Auto) % (0.0-2.0) % (0.0-2.0) Differential Total Cells Counted 100 100 Neutrophils % (Manual) 89 % (45-75) H 85 % (45-75) H Lymphocytes % (Manual) 4 % (20-45) L 7 % (20-45) L Monocytes % (Manual) 6 % (1-10) 7 % (1-10) Eosinophils % (Manual) 1 % (0-3) 1 % (0-3) Basophils % (Manual) 0 % (0-2) 0 % (0-2) Band Neutrophils 0 % (0-8) 0 % (0-8) Platelet Estimate Adequate Adequate Platelet Morphology Normal Normal Hypochromasia 1+ 3+ Anisocytosis 1+ 1+ Macrocytosis 1+ Sodium Level 133 MMOL/L (136-145) L 131 MMOL/L (136-145) L Potassium Level 4.4 MMOL/L (3.5-5.1) 4.3 MMOL/L (3.5-5.1) Chloride Level 94 MMOL/L (98-107) L 94 MMOL/L (98-107) L Carbon Dioxide Level 28 MMOL/L (21-32) 26 MMOL/L (21-32) Anion Gap 11 mmol/L (5-15) 11 mmol/L (5-15) Blood Urea Nitrogen 100 mg/dL (7-18) H 112 mg/dL (7-18) H Creatinine 4.0 MG/DL (0.55-1.30) H 4.3 MG/DL (0.55-1.30) H Estimat Glomerular Filtration Rate mL/min (>60) mL/min (>60) Glucose Level 148 MG/DL (74-106) H 106 MG/DL (74-106) Calcium Level 8.1 MG/DL (8.5-10.1) L 7.6 MG/DL (8.5-10.1) L Spherocytes 1+ Prothrombin Time 10.7 SEC (9.30-11.50) Prothromb Time International Ratio 1.0 (0.9-1.1) Activated Partial Thromboplast Time 41 SEC (23-33) H Height (Feet): 5 Height (Inches): 5.00 Weight (Pounds): 124 General Appearance: no apparent distress, thin Cardiovascular: normal rate Respiratory/Chest: normal breath sounds, no respiratory distress Abdominal Exam: normal bowel sounds, non tender, soft, GT site Extremities: non-tender Janene Ellis [employer] Nov 03, 2018 10:39
[2018-11-03] MEDS ORDERED: NS 275ml ONE (10:53)
[2018-11-03] MEDS ORDERED: Tubing Blood Filter IV ONE (10:53)
--- NOTE | 2018-11-03 11:04 | Infectious Diseases Prog Note ---
Assessment/Plan Assessment/Plan antibiotics : fluconazole 2.1.19 - acyclovir 2.2.19 - A 1. thrush decreasing 2. esophageal ulcers ? HSV 3. renal failure on dialysis 4. schizophrenia P 1. continue fluconazole 6 more days 2. continue acyclovir 7 more days 3. will follow up cultures Subjective ROS Limited/Unobtainable: Yes Allergies: Coded Allergies: No Known Allergies (Unverified , 05/11/18) Objective Vital Signs Last 24 Hour Vital Signs Date Time Temp Pulse Resp B/P (MAP) Pulse Ox O2 Delivery O2 Flow Rate FiO2 11/03/18 09:00 96/48 11/03/18 09:00 65 96/42 11/03/18 08:00 97.9 65 24 96/42 (60) 99 11/03/18 08:00 65 11/03/18 08:00 Nasal Cannula 4.0 11/03/18 06:56 100 Nasal Cannula 4.0 36 11/03/18 06:56 64 16 Nasal Cannula 4.0 36 11/03/18 06:56 Nasal Cannula 4.0 36 11/03/18 04:00 97.5 71 20 108/53 (71) 98 11/03/18 04:00 Nasal Cannula 4.0 11/03/18 04:00 74 11/03/18 00:00 Nasal Cannula 4.0 11/03/18 00:00 97.3 96 20 128/64 (85) 96 11/02/18 22:10 79 18 Nasal Cannula 4.0 36 11/02/18 22:10 Nasal Cannula 4.0 36 11/02/18 22:10 97 Nasal Cannula 4.0 36 11/02/18 21:00 116/59 11/02/18 20:00 Nasal Cannula 4.0 11/02/18 20:00 83 11/02/18 20:00 97.8 75 20 116/59 (78) 97 11/02/18 16:00 98.7 81 100/42 (61) 20 11/02/18 16:00 Nasal Cannula 4.0 11/02/18 15:43 93 11/02/18 12:00 Nasal Cannula 4.0 11/02/18 11:50 81 11/02/18 11:46 98.5 81 20 99/48 (65) 95 Height (Feet): 5 Height (Inches): 5.00 Weight (Pounds): 124 HEENT: thrush - decreased Respiratory/Chest: lungs clear Cardiovascular: normal rate, regular rhythm, no gallop/murmur Abdomen: soft, non tender, other - GT Extremities: no edema Laboratory Tests Test 11/02/18 11:05 11/03/18 03:15 White Blood Count 9.0 K/UL (4.8-10.8) 7.0 K/UL (4.8-10.8) Red Blood Count 2.23 M/UL (4.20-5.40) L 2.37 M/UL (4.20-5.40) L Hemoglobin 7.1 G/DL (12.0-16.0) L 7.3 G/DL (12.0-16.0) L Hematocrit 22.2 % (37.0-47.0) L 22.3 % (37.0-47.0) L Mean Corpuscular Volume 100 FL (80-99) H 94 FL (80-99) Mean Corpuscular Hemoglobin 31.7 PG (27.0-31.0) H 30.8 PG (27.0-31.0) Mean Corpuscular Hemoglobin Concent 31.9 G/DL (32.0-36.0) L 32.7 G/DL (32.0-36.0) Red Cell Distribution Width 16.5 % (11.6-14.8) H 16.8 % (11.6-14.8) H Platelet Count 180 K/UL (150-450) 156 K/UL (150-450) Mean Platelet Volume 5.1 FL (6.5-10.1) L 5.0 FL (6.5-10.1) L Neutrophils (%) (Auto) % (45.0-75.0) % (45.0-75.0) Lymphocytes (%) (Auto) % (20.0-45.0) % (20.0-45.0) Monocytes (%) (Auto) % (1.0-10.0) % (1.0-10.0) Eosinophils (%) (Auto) % (0.0-3.0) % (0.0-3.0) Basophils (%) (Auto) % (0.0-2.0) % (0.0-2.0) Differential Total Cells Counted 100 100 Neutrophils % (Manual) 89 % (45-75) H 85 % (45-75) H Lymphocytes % (Manual) 4 % (20-45) L 7 % (20-45) L Monocytes % (Manual) 6 % (1-10) 7 % (1-10) Eosinophils % (Manual) 1 % (0-3) 1 % (0-3) Basophils % (Manual) 0 % (0-2) 0 % (0-2) Band Neutrophils 0 % (0-8) 0 % (0-8) Platelet Estimate Adequate Adequate Platelet Morphology Normal Normal Hypochromasia 1+ 3+ Anisocytosis 1+ 1+ Macrocytosis 1+ Sodium Level 133 MMOL/L (136-145) L 131 MMOL/L (136-145) L Potassium Level 4.4 MMOL/L (3.5-5.1) 4.3 MMOL/L (3.5-5.1) Chloride Level 94 MMOL/L (98-107) L 94 MMOL/L (98-107) L Carbon Dioxide Level 28 MMOL/L (21-32) 26 MMOL/L (21-32) Anion Gap 11 mmol/L (5-15) 11 mmol/L (5-15) Blood Urea Nitrogen 100 mg/dL (7-18) H 112 mg/dL (7-18) H Creatinine 4.0 MG/DL (0.55-1.30) H 4.3 MG/DL (0.55-1.30) H Estimat Glomerular Filtration Rate mL/min (>60) mL/min (>60) Glucose Level 148 MG/DL (74-106) H 106 MG/DL (74-106) Calcium Level 8.1 MG/DL (8.5-10.1) L 7.6 MG/DL (8.5-10.1) L Spherocytes 1+ Prothrombin Time 10.7 SEC (9.30-11.50) Prothromb Time International Ratio 1.0 (0.9-1.1) Activated Partial Thromboplast Time 41 SEC (23-33) H Current Medications Medications (Trade) Dose Ordered Sig/Konrad Route PRN Reason Start Time Stop Time Status Last Admin Dose Admin Acetaminophen (Tylenol) 650 mg Q4H PRN GT Mild Pain/Temp > 100.5 2/1/19 18:30 11/23/18 18:29 Acyclovir (Zovirax) 200 mg Q12HR GT 11/01/18 21:00 12/01/18 20:59 11/03/18 08:59 Amlodipine Besylate (Norvasc) 10 mg DAILY GT 10/31/18 20:00 11/30/18 19:59 11/02/18 09:40 Dextrose (Dextrose 50%) 25 ml Q30M PRN IV Hypoglycemia 10/31/18 18:30 11/23/18 18:29 Dextrose (Dextrose 50%) 50 ml Q30M PRN IV Hypoglycemia 10/31/18 18:30 11/23/18 18:48 Epoetin Chau (Epoetin Chau-EPBX(NON ESRD)) 10,000 unit SAT-SAT-SAT SUBQ 10/31/18 21:00 11/30/18 20:59 10/31/18 21:00 Fluconazole (Diflucan) 100 mg DAILY GT 11/02/18 09:00 11/09/18 08:59 11/03/18 08:59 Guaifenesin/ Dextromethorphan (Robitussin DM Syrup) 10 ml Q8H PRN GT For Cough 10/31/18 18:30 11/27/18 18:29 Heparin Sodium (Porcine) (Heparin Sod 1000 units/ml 10ml) 500 unit ONCE PRN IV dialysis 11/03/18 15:15 11/03/18 23:59 Heparin Sodium (Porcine) (Heparin) 1,000 unit POSTHD INJ 11/03/18 15:15 11/03/18 23:59 Insulin Aspart (NovoLOG) EVERY 6 HOURS SUBQ 10/31/18 20:00 11/30/18 19:59 11/02/18 23:58 Lansoprazole (Prevacid) 30 mg BID GT 10/31/18 20:00 11/30/18 19:59 11/03/18 08:59 Levothyroxine Sodium (Synthroid) 150 mcg DAILY@0630 GT 11/01/18 06:30 11/24/18 06:29 11/03/18 05:48 Metoclopramide HCl (Reglan) 10 mg Q6H PRN IVP Nausea & Vomiting 10/31/18 18:30 11/23/18 18:29 Minoxidil (Loniten) 2.5 mg Q12HR GT 10/31/18 21:00 11/23/18 20:59 11/02/18 09:39 Polyethylene Glycol (Miralax) 17 gm BEDTIME GT 10/31/18 21:00 11/23/18 20:59 10/31/18 21:01 Sodium Chloride 1,000 ml @ 500 mls/hr Q2H PRN IVLG sbp<90 during hd 11/03/18 15:07 11/03/18 23:59 Sucralfate (Carafate) 1 gm FOUR TIMES A DAY GT 11/01/18 13:00 12/01/18 12:59 11/03/18 08:59 Vitamin B Complex/ Vit C/Folic Acid (Nephrovite) 1 tab DAILY GT 11/01/18 09:00 11/24/18 08:59 11/03/18 08:59 Vitamin D (Vitamin D) 1,000 intlu DAILY GT 11/01/18 09:00 11/24/18 08:59 11/03/18 08:59 Deuce Lewis MD Nov 03, 2018 11:04
[2018-11-03] MEDS ORDERED: Heparin Sod 1000 units/ml 10ml INJ SCH (13:59)
[2018-11-03] MEDS ORDERED: Heparin 2000 units/Ns 1000ml INJ SCH (14:00)
[2018-11-03] MEDS ORDERED: Lidocaine 2% 20mg/ml/Epi 0.005mg/ml 20ml vial INJ SCH (14:00)
[2018-11-03] MEDS ORDERED: Heparin Sod 1000 units/ml 10ml IV PRN (15:15)
[2018-11-03] MEDS ORDERED: Heparin 1000 units/ml 1ml Vial INJ SCH (15:15)
--- NOTE | 2018-11-03 16:33 | Nephrology Progress Note ---
Assessment/Plan Plan Worsening Anemia. ESRD HD MWF+ HD Patient has no family, no DPOA. Signed for her transfusion SOB - see orders. CXR CHF. s/p Endoscopies - Large Esophageal Ulcer R/O Chrystal Esophagitis. Patient with recurrent and severe oral thrush. ID on the case. m/p this is the origin of the GI bleed. (Colonoscopy -polyps. Biopsied). Couldn't dialyze patient due to hematoma Lt. upper arm. Needs a PermCath. Patient has no family or DPOA. PermCath is urgent to maintain life! Cannot find a central vein for a PermCath. Had a Zaid cath placed by IR. Jose J Thompson! To convert Emir to PermCath Subjective Subjective Less SOB, Less coughing. Post Femoral Zaid placement. Objective Objective Last 24 Hour Vital Signs Date Time Temp Pulse Resp B/P (MAP) Pulse Ox O2 Delivery O2 Flow Rate FiO2 11/03/18 16:05 78 18 136/66 (89) 97 11/03/18 16:00 77 18 129/64 (85) 97 11/03/18 15:55 72 18 138/66 (90) 96 11/03/18 13:43 79 18 3.0 11/03/18 12:00 64 11/03/18 12:00 97.3 68 18 115/56 (75) 99 11/03/18 12:00 Nasal Cannula 4.0 11/03/18 09:00 96/48 11/03/18 09:00 65 96/42 11/03/18 08:00 97.9 65 24 96/42 (60) 99 11/03/18 08:00 65 11/03/18 08:00 Nasal Cannula 4.0 11/03/18 06:56 100 Nasal Cannula 4.0 36 11/03/18 06:56 64 16 Nasal Cannula 4.0 36 11/03/18 06:56 Nasal Cannula 4.0 36 11/03/18 04:00 97.5 71 20 108/53 (71) 98 11/03/18 04:00 Nasal Cannula 4.0 11/03/18 04:00 74 11/03/18 00:00 Nasal Cannula 4.0 11/03/18 00:00 97.3 96 20 128/64 (85) 96 2/3/19 22:10 79 18 Nasal Cannula 4.0 36 11/02/18 22:10 Nasal Cannula 4.0 36 11/02/18 22:10 97 Nasal Cannula 4.0 36 11/02/18 21:00 116/59 11/02/18 20:00 Nasal Cannula 4.0 11/02/18 20:00 83 11/02/18 20:00 97.8 75 20 116/59 (78) 97 Intake and Output 11/02/18 11/03/18 18:59 06:59 Intake Total 890 ml 490 ml Output Total 0 ml Balance 890 ml 490 ml Free Water 50 ml Tube Feeding 440 ml 240 ml Blood Product 100 ml 250 ml Other 300 ml Output Urine Total 0 ml Laboratory Tests 11/03/18 03:15: White Blood Count 7.0, Red Blood Count 2.37L, Hemoglobin 7.3L, Hematocrit 22.3L , Mean Corpuscular Volume 94, Mean Corpuscular Hemoglobin 30.8, Mean Corpuscular Hemoglobin Concent 32.7, Red Cell Distribution Width 16.8H, Platelet Count 156, Mean Platelet Volume 5.0L, Neutrophils (%) (Auto) , Lymphocytes (%) (Auto) , Monocytes (%) (Auto) , Eosinophils (%) (Auto) , Basophils (%) (Auto) , Differential Total Cells Counted 100, Neutrophils % ( Manual) 85H, Lymphocytes % (Manual) 7L, Monocytes % (Manual) 7, Eosinophils % ( Manual) 1, Basophils % (Manual) 0, Band Neutrophils 0, Platelet Estimate Adequate, Platelet Morphology Normal, Hypochromasia 3+, Anisocytosis 1+, Spherocytes 1+, Prothrombin Time 10.7, Prothromb Time International Ratio 1.0, Activated Partial Thromboplast Time 41H, Sodium Level 131L, Potassium Level 4.3 , Chloride Level 94L, Carbon Dioxide Level 26, Anion Gap 11, Blood Urea Nitrogen 112H, Creatinine 4.3H, Estimat Glomerular Filtration Rate , Glucose Level 106, Calcium Level 7.6L Height (Feet): 5 Height (Inches): 5.00 Weight (Pounds): 124 Objective CV RR Cachechtic Lungs B wheezes Abd SNT. BS + PEG. E M. wasting. GIANNI AVF infiltrated with hematoma. Has a new Zaid. Raul Cannon MD Nov 03, 2018 16:33
--- NOTE | 2018-11-03 16:45 | Diagnostic Imaging Report ---
Indication: Patient requires hemodialysis. Findings: After the indications, procedure, risks, complications, and alternatives of the procedure were explained, written informed consent was obtained. The right groin was prepped with alcohol. All elements of maximal sterile barrier technique were followed including usage of a cap, mask, sterile gown, sterile gloves, hand hygiene and a large sterile sheet. 1% lidocaine was used to anesthetize the skin. Sonographic evaluation was performed demonstrating a patent and compressible right femoral vein. Access was obtained under real-time ultrasound guidance using an 18 gauge needle and a digital image was saved in archive. An 0.035 wire was then advanced into the vein. Needle exchanged for a dilator. A temporary hemodialysis catheter was then advanced over the wire. Wire was removed. Catheter was secured to the skin using 2-0 Prolene suture. Both ports aspirate and flush easily. Fluoroscopic imaging was utilized to negotiate the 035 wire into position. Final position of the hemodialysis catheter was confirmed by fluoroscopy. Total fluoroscopic time 18.6 seconds. The catheter is cleared for use. Impression: Successful placement of right femoral hemodialysis catheter.
[2018-11-03] MEDS ORDERED: Lidocaine 2% 20mg/ml/Epi 0.005mg/ml 20ml vial ONE (16:50)
[2018-11-03 17:46] LABS: HEMATOCRIT 21.8 % (37.0-47.0); HEMOGLOBIN 7.1 G/DL (12.0-16.0); MEAN CORPUSCULAR VOLUME 94 FL (80-99); PLATELET COUNT 138 K/UL (150-450); RED BLOOD COUNT 2.32 M/UL (4.20-5.40); RED CELL DISTRIBUTION WIDTH 16.6 % (11.6-14.8); WHITE BLOOD COUNT 5.4 K/UL (4.8-10.8)
[2018-11-03 17:53] LABS: ANION GAP 12 mmol/L (5-15); BLOOD UREA NITROGEN 116 mg/dL (7-18); CALCIUM 7.5 MG/DL (8.5-10.1); CARBON DIOXIDE 27 MMOL/L (21-32); CHLORIDE 92 MMOL/L (98-107); CREATININE 4.5 MG/DL (0.55-1.30); PHOSPHORUS 3.6 MG/DL (2.5-4.9); POTASSIUM 4.3 MMOL/L (3.5-5.1); SODIUM 131 MMOL/L (136-145)
--- NOTE | 2018-11-03 19:28 | NUR ---
NURSE NOTES: Zaid catheter inserted on RT groin by radiology, pt on HD now, 2u of PRBC given with HD, ultrasound of left arm done, dr. Thompson aware about result, continue monitoring.
--- NOTE | 2018-11-03 19:30 | Consultation ---
DATE OF CONSULTATION: 11/03/2018 CONSULTING PHYSICIAN: Lewis Thompson M.D. REFERRING PHYSICIAN: Ysabel Rodriguez M.D. REASON FOR CONSULTATION: Left arm AV shunt hematoma. HISTORY OF PRESENT ILLNESS: This is a 73-year-old female who suffers from psychosis, schizophrenia, end-stage renal failure on hemodialysis through a left upper arm AV shunt. The patient reportedly pulled out her AV shunt needles during her dialysis session and subsequently developed hematoma. Vascular surgery is consulted for evaluation of the AV shunt and hematoma. The patient is awake, but confused. All the history obtained from medical records. PAST MEDICAL HISTORY: As above. History of diabetes mellitus, hypothyroidism,, schizophrenia, end-stage renal failure, on hemodialysis, left arm AV shunt. MEDICATIONS: see attached list ALLERGIES: No known drug allergies. SOCIAL HISTORY: Unobtainable. FAMILY HISTORY: Unobtainable. REVIEW OF SYSTEMS: Unobtainable due to altered mental status. PHYSICAL EXAMINATION: GENERAL: The patient is awake, confused but alert. Disoriented to time, person, and place. She is afebrile. VITAL SIGNS: Temperature 97.7, heart rate 67, blood pressure was 114/63, respiratory rate 16. The patient has palpable radial pulses. Left arm AV shunt with a palpable thrill. There is left upper arm AV shunt hematoma. LUNGS: Clear to auscultation. HEART: Regular rate. ABDOMEN: Soft and nontender. EXTREMITIES: She has palpable femoral pulses. Intact pedal Dopplers bilaterally. LABORATORY AND DIAGNOSTIC DATA: Her admission laboratory reveal hematocrit 27.7. BUN 88 and creatinine 2.7. IMPRESSION: 1. Left upper arm AV shunt Hematoma, status post self removal of the AV shunt needles. 2. End-stage renal failure on hemodialysis. 3. History of psychosis. 4. Diabetes mellitus. 5. Hypothyroidism. PLAN AND RECOMMENDATIONS: 1. Do not use of left arm AV shunt for dialysis for 1 month for complete rest, so the hematoma will resolve. 2. Left arm AV shunt duplex to evaluate and assist outflow stenosis. 3. We will schedule the patient for left arm fistulogram in about 4 to 6 weeks to assist AV shunt and outflow. 4. HD via permcath The above was discussed at length with the patient's nurse and primary. Lewis Thompson M.D. DR: Kaylene JOB#: [id number] CC: Lewis Thompson M.D.; Fax#: [phone] YSABEL RODRIGUEZ M.D. ; FAX#: [phone] [facility]
--- NOTE | 2018-11-03 19:30 | NUR ---
NURSE NOTES: Report received from Arline Davidson RN. Observed pt lying on bed with dialysis going on. A/O x2-3. SR with rn cardiac cath. NC with O2 4L. Gt site intact and patent, running Nephro at 40cc/hr. Lt AV shunt, hematoma, and MD is aware. R femoral Zaid, intact and asymptomatic. IV on R FA 22G, HL, intact and patent. Bed in the lowest position. Side rails up x3. Will continue to monitor.
[2018-11-03] MEDS ORDERED: Epoetin Alfa-EPBX (NON ESRD)10,000 unit/ml vial SUBQ ONE (21:00)
[2018-11-03] MEDS: Epoetin Alfa-EPBX (NON ESRD)10,000 unit/ml vial SUBQ SCH (21:33)
[2018-11-03] MEDS: Miralax 17gm pkt GT SCH (21:34)
[2018-11-04] VITALS: BP 137/61
[2018-11-04 04:00] VITALS: BP 125/57
[2018-11-04] MEDS: NovoLOG Insulin Flexpen SUBQ SCH ×4 (06:00→17:25)
[2018-11-04 06:22] LABS: ANION GAP 10 mmol/L (5-15); BLOOD UREA NITROGEN 52 mg/dL (7-18); CALCIUM 8.3 MG/DL (8.5-10.1); CARBON DIOXIDE 27 MMOL/L (21-32); CHLORIDE 102 MMOL/L (98-107); CREATININE 2.7 MG/DL (0.55-1.30); POTASSIUM 4.1 MMOL/L (3.5-5.1); SODIUM 139 MMOL/L (136-145)
--- NOTE | 2018-11-04 07:09 | NUR ---
HAND-OFF: Report given to WILIAM Doll. No acute distress noted at this time.
--- NOTE | 2018-11-04 07:10 | NUR ---
NURSE NOTES: Received patient from WILIAM Slater. Patient in bed, awake, able to open her eyes. On 4L NC. In no respiratory distress. Diet is currently NPO due to plan for Tunnel Cath placement scheduled today. Left AV shunt, hematoma and MD aware. Zaid cath Right Femoral asymptomatic. IV site on R FA 22G saline lock. Per PM nurse, patient had dialysis yesterday. 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 Bed in lowest position with side rails up. Will continue to follow plan of care.
--- NOTE | 2018-11-04 07:30 | NUR ---
NURSE NOTES: Left a message to Dr. Michael about Potassium 2.9. Awaiting for call back. Addendum: 11/04/18 at 0754 by Sharmila Harmon RN Wrong documentation. For a different patient.
[2018-11-04 08:00] VITALS: BP 119/52
[2018-11-04] MEDS: Fluconazole 100mg tab GT SCH (08:49)
[2018-11-04] MEDS: Sucralfate 1gm tab GT SCH ×4 (08:49→20:26)
[2018-11-04] MEDS: Acyclovir 200mg Cap GT SCH ×2 (08:49→20:26)
[2018-11-04] MEDS: Vitamin D 1000 IU Tab GT SCH (08:49)
[2018-11-04] MEDS: Nephrovite tab (Rena-Vite) GT SCH (08:49)
[2018-11-04] MEDS: Minoxidil 2.5mg tab GT SCH ×2 (08:50→20:27)
--- NOTE | 2018-11-04 10:12 | Infectious Diseases Prog Note ---
Assessment/Plan Assessment/Plan antibiotics : fluconazole 2.1.19 - acyclovir 2.2.19 - A 1. thrush decreasing 2. esophageal ulcers ? HSV 3. renal failure on dialysis 4. schizophrenia P 1. continue fluconazole 5 more days 2. continue acyclovir 6 more days 3. will follow up cultures Subjective ROS Limited/Unobtainable: Yes Allergies: Coded Allergies: No Known Allergies (Unverified , 05/11/18) Objective Vital Signs Last 24 Hour Vital Signs Date Time Temp Pulse Resp B/P (MAP) Pulse Ox O2 Delivery O2 Flow Rate FiO2 11/04/18 08:50 119/52 11/04/18 08:50 64 119/52 11/04/18 08:00 Nasal Cannula 4.0 11/04/18 08:00 98.6 64 20 119/52 (74) 95 11/04/18 08:00 64 11/04/18 07:19 Nasal Cannula 4.0 36 11/04/18 07:19 95 Nasal Cannula 4.0 36 11/04/18 07:19 65 18 Nasal Cannula 4.0 36 11/04/18 04:00 Nasal Cannula 4.0 11/04/18 04:00 97.8 72 16 125/57 (79) 97 11/04/18 04:00 69 11/04/18 00:00 98.0 66 20 137/61 (86) 98 11/04/18 00:00 Nasal Cannula 4.0 11/04/18 00:00 76 11/03/18 21:34 140/58 11/03/18 20:00 Nasal Cannula 4.0 11/03/18 20:00 97.3 76 16 140/58 (85) 92 11/03/18 19:57 97 Nasal Cannula 4.0 36 11/03/18 19:57 Nasal Cannula 4.0 36 11/03/18 19:56 85 20 Nasal Cannula 4.0 36 11/03/18 17:09 97.7 78 24 132/61 (84) 100 11/03/18 16:05 78 18 136/66 (89) 97 11/03/18 16:00 77 18 129/64 (85) 97 11/03/18 16:00 68 11/03/18 16:00 Nasal Cannula 4.0 11/03/18 15:55 72 18 138/66 (90) 96 11/03/18 13:43 79 18 3.0 11/03/18 12:00 64 11/03/18 12:00 97.3 68 18 115/56 (75) 99 11/03/18 12:00 Nasal Cannula 4.0 Height (Feet): 5 Height (Inches): 5.00 Weight (Pounds): 125 HEENT: thrush - decreased Respiratory/Chest: lungs clear Cardiovascular: normal rate, regular rhythm, no gallop/murmur Abdomen: soft, non tender, other - GT Extremities: no edema Laboratory Tests Test 11/03/18 17:20 11/04/18 03:10 White Blood Count 5.4 K/UL (4.8-10.8) Red Blood Count 2.32 M/UL (4.20-5.40) L Hemoglobin 7.1 G/DL (12.0-16.0) L Hematocrit 21.8 % (37.0-47.0) L Mean Corpuscular Volume 94 FL (80-99) Mean Corpuscular Hemoglobin 30.5 PG (27.0-31.0) Mean Corpuscular Hemoglobin Concent 32.5 G/DL (32.0-36.0) Red Cell Distribution Width 16.6 % (11.6-14.8) H Platelet Count 138 K/UL (150-450) L Mean Platelet Volume 4.6 FL (6.5-10.1) L Neutrophils (%) (Auto) % (45.0-75.0) Lymphocytes (%) (Auto) % (20.0-45.0) Monocytes (%) (Auto) % (1.0-10.0) Eosinophils (%) (Auto) % (0.0-3.0) Basophils (%) (Auto) % (0.0-2.0) Differential Total Cells Counted 100 Neutrophils % (Manual) 78 % (45-75) H Lymphocytes % (Manual) 12 % (20-45) L Monocytes % (Manual) 7 % (1-10) Eosinophils % (Manual) 2 % (0-3) Basophils % (Manual) 1 % (0-2) Band Neutrophils 0 % (0-8) Platelet Estimate Decreased L Platelet Morphology Normal Hypochromasia 1+ Anisocytosis 1+ Sodium Level 131 MMOL/L (136-145) L 139 MMOL/L (136-145) Potassium Level 4.3 MMOL/L (3.5-5.1) 4.1 MMOL/L (3.5-5.1) Chloride Level 92 MMOL/L (98-107) L 102 MMOL/L (98-107) Carbon Dioxide Level 27 MMOL/L (21-32) 27 MMOL/L (21-32) Anion Gap 12 mmol/L (5-15) 10 mmol/L (5-15) Blood Urea Nitrogen 116 mg/dL (7-18) H 52 mg/dL (7-18) H Creatinine 4.5 MG/DL (0.55-1.30) H 2.7 MG/DL (0.55-1.30) H Estimat Glomerular Filtration Rate mL/min (>60) mL/min (>60) Glucose Level 109 MG/DL (74-106) H 102 MG/DL (74-106) Calcium Level 7.5 MG/DL (8.5-10.1) L 8.3 MG/DL (8.5-10.1) L Phosphorus Level 3.6 MG/DL (2.5-4.9) Current Medications Medications (Trade) Dose Ordered Sig/Konrad Route PRN Reason Start Time Stop Time Status Last Admin Dose Admin Acetaminophen (Tylenol) 650 mg Q4H PRN GT Mild Pain/Temp > 100.5 10/31/18 18:30 11/23/18 18:29 Acyclovir (Zovirax) 200 mg Q12HR GT 11/01/18 21:00 12/01/18 20:59 11/04/18 08:49 Amlodipine Besylate (Norvasc) 10 mg DAILY GT 10/31/18 20:00 11/30/18 19:59 11/02/18 09:40 Dextrose (Dextrose 50%) 25 ml Q30M PRN IV Hypoglycemia 10/31/18 18:30 11/23/18 18:29 Dextrose (Dextrose 50%) 50 ml Q30M PRN IV Hypoglycemia 10/31/18 18:30 11/23/18 18:48 Epoetin Chau (Epoetin Chau-EPBX(NON ESRD)) 10,000 unit SAT-SAT-SAT SUBQ 10/31/18 21:00 11/30/18 20:59 11/03/18 21:33 Fluconazole (Diflucan) 100 mg DAILY GT 11/02/18 09:00 11/09/18 08:59 11/04/18 08:49 Guaifenesin/ Dextromethorphan (Robitussin DM Syrup) 10 ml Q8H PRN GT For Cough 10/31/18 18:30 11/27/18 18:29 Insulin Aspart (NovoLOG) EVERY 6 HOURS SUBQ 10/31/18 20:00 11/30/18 19:59 11/02/18 23:58 Lansoprazole (Prevacid) 30 mg BID GT 10/31/18 20:00 11/30/18 19:59 11/04/18 08:49 Levothyroxine Sodium (Synthroid) 150 mcg DAILY@0630 GT 11/01/18 06:30 11/24/18 06:29 11/03/18 05:48 Metoclopramide HCl (Reglan) 10 mg Q6H PRN IVP Nausea & Vomiting 10/31/18 18:30 11/23/18 18:29 Minoxidil (Loniten) 2.5 mg Q12HR GT 10/31/18 21:00 11/23/18 20:59 11/03/18 21:34 Polyethylene Glycol (Miralax) 17 gm BEDTIME GT 10/31/18 21:00 11/23/18 20:59 11/03/18 21:34 Sucralfate (Carafate) 1 gm FOUR TIMES A DAY GT 11/01/18 13:00 12/01/18 12:59 11/04/18 08:49 Vitamin B Complex/ Vit C/Folic Acid (Nephrovite) 1 tab DAILY GT 11/01/18 09:00 11/24/18 08:59 11/04/18 08:49 Vitamin D (Vitamin D) 1,000 intlu DAILY GT 11/01/18 09:00 11/24/18 08:59 11/04/18 08:49 Deuce Lewis MD Nov 04, 2018 10:12
--- NOTE | 2018-11-04 11:41 | NUR ---
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 98.6 HR 64 RR 20 B/P 119/52 4L NC O2 SAT @ 98% IS: DIFLUCAN GT ACYCLOVIR GT PREVACID GT CARAFATE GT STEP DOWN STATUS
--- NOTE | 2018-11-04 11:48 | NUR ---
*-* DISCHARGE PLANNING *-* PATIENT HAS BEEN REFERRED BACK TO: [facility] P:[phone] F:[phone]
[2018-11-04 12:00] VITALS: BP 118/57
[2018-11-04] MEDS ORDERED: Tubing IV Secondary IV ONE (12:50)
--- NOTE | 2018-11-04 13:30 | NUR ---
NURSE NOTES: Dr. Cannon in the unit and aware about the placement of Zaid cath instead the permacath.
--- NOTE | 2018-11-04 13:31 | NUR ---
*-* DISCHARGED PLANNED *-* PATIENT IS DISCHARGED TO: [facility] ROOM# 101-[facility] T:[phone] FOR NURSE TO NURSE REPORT [facility] HAS BEEN ARRANGED FOR OPERATOR ASSISTANT I CEMENTING AT 1430 S/W DEANNE [phone]
--- NOTE | 2018-11-04 13:52 | Nephrology Progress Note ---
Assessment/Plan Plan Worsening Anemia. ESRD HD MWF+ HD Patient has no family, no DPOA. Signed for her transfusion SOB - see orders. CXR CHF. s/p Endoscopies - Large Esophageal Ulcer R/O Chrystal Esophagitis. Patient with recurrent and severe oral thrush. ID on the case. m/p this is the origin of the GI bleed. (Colonoscopy -polyps. Biopsied). Couldn't dialyze patient due to hematoma Lt. upper arm. Needs a PermCath. Patient has no family or DPOA. PermCath is urgent to maintain life! Cannot find a central vein for a PermCath. Had a Zaid cath placed by IR. Jose J Thompson! To convert Emir to PermCath Subjective Subjective Less SOB, Less coughing. Post Femoral Zaid placement. Objective Objective Last 24 Hour Vital Signs Date Time Temp Pulse Resp B/P (MAP) Pulse Ox O2 Delivery O2 Flow Rate FiO2 11/04/18 12:00 97.6 62 18 118/57 (77) 97 11/04/18 12:00 60 11/04/18 12:00 Nasal Cannula 4.0 11/04/18 08:50 119/52 11/04/18 08:50 64 119/52 11/04/18 08:00 Nasal Cannula 4.0 11/04/18 08:00 98.6 64 20 119/52 (74) 95 11/04/18 08:00 64 11/04/18 07:19 Nasal Cannula 4.0 36 11/04/18 07:19 95 Nasal Cannula 4.0 36 11/04/18 07:19 65 18 Nasal Cannula 4.0 36 11/04/18 04:00 Nasal Cannula 4.0 11/04/18 04:00 97.8 72 16 125/57 (79) 97 11/04/18 04:00 69 11/04/18 00:00 98.0 66 20 137/61 (86) 98 11/04/18 00:00 Nasal Cannula 4.0 11/04/18 00:00 76 11/03/18 21:34 140/58 11/03/18 20:00 Nasal Cannula 4.0 11/03/18 20:00 97.3 76 16 140/58 (85) 92 11/03/18 19:57 97 Nasal Cannula 4.0 36 11/03/18 19:57 Nasal Cannula 4.0 36 11/03/18 19:56 85 20 Nasal Cannula 4.0 36 11/03/18 17:09 97.7 78 24 132/61 (84) 100 11/03/18 16:05 78 18 136/66 (89) 97 11/03/18 16:00 77 18 129/64 (85) 97 11/03/18 16:00 68 11/03/18 16:00 Nasal Cannula 4.0 11/03/18 15:55 72 18 138/66 (90) 96 Intake and Output 11/03/18 11/04/18 19:00 07:00 Intake Total 210 ml 220 ml Balance 210 ml 220 ml Free Water 50 ml 60 ml Tube Feeding 160 ml 160 ml # Bowel Movements 1 Laboratory Tests 11/03/18 17:20: White Blood Count 5.4, Red Blood Count 2.32L, Hemoglobin 7.1L, Hematocrit 21.8L , Mean Corpuscular Volume 94, Mean Corpuscular Hemoglobin 30.5, Mean Corpuscular Hemoglobin Concent 32.5, Red Cell Distribution Width 16.6H, Platelet Count 138L, Mean Platelet Volume 4.6L, Neutrophils (%) (Auto) , Lymphocytes (%) (Auto) , Monocytes (%) (Auto) , Eosinophils (%) (Auto) , Basophils (%) (Auto) , Differential Total Cells Counted 100, Neutrophils % ( Manual) 78H, Lymphocytes % (Manual) 12L, Monocytes % (Manual) 7, Eosinophils % ( Manual) 2, Basophils % (Manual) 1, Band Neutrophils 0, Platelet Estimate DecreasedL, Platelet Morphology Normal, Hypochromasia 1+, Anisocytosis 1+, Sodium Level 131L, Potassium Level 4.3, Chloride Level 92L, Carbon Dioxide Level 27, Anion Gap 12, Blood Urea Nitrogen 116H, Creatinine 4.5H, Estimat Glomerular Filtration Rate , Glucose Level 109H, Calcium Level 7.5L, Phosphorus Level 3.6 11/04/18 03:10: Sodium Level 139, Potassium Level 4.1, Chloride Level 102, Carbon Dioxide Level 27, Anion Gap 10, Blood Urea Nitrogen 52H, Creatinine 2.7H, Estimat Glomerular Filtration Rate , Glucose Level 102, Calcium Level 8.3L Height (Feet): 5 Height (Inches): 5.00 Weight (Pounds): 125 Objective CV RR Cachechtic Lungs B wheezes Abd SNT. BS + PEG. E M. wasting. GIANNI AVF infiltrated with hematoma. Has a new Zaid. Raul Cannon MD Nov 04, 2018 13:52
--- NOTE | 2018-11-04 14:15 | Diagnostic Imaging Report ---
APPROVED REPORT CPT Code: 38233 Present Symptoms Comments: Swelling LEFT UPPER EXTREMITY (Deep venous system): Imaging reveals patency of the internal jugular, subclavian, axillary and brachial veins. Doppler indicates normal spontaneous flow within these venous segments. 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 An echoic area, appearing hematoma measuring 1.6 cm x 2.7 cm is noted at the adjacent to the upper mid upper arm arterio-venous fistula. There is no evidence of occlusion in the arterio-venous fistula.
--- NOTE | 2018-11-04 14:15 | NUR ---
NURSE NOTES: Spoke to Yareli from Dr. Charles's office and informed her that Zaid cath was inserted instead of permacath because a central line cannot be find. She will let Dr. Charles know.
--- NOTE | 2018-11-04 14:16 | Diagnostic Imaging Report ---
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 An echoic area, appearing hematoma measuring 1.6 cm x 2.7 cm is noted at the adjacent to the upper mid upper arm arterio-venous fistula. There is no evidence of occlusion in the arterio-venous fistula. Velocities obtained from the graft are as follows: Proximal brachial artery: 244 cm/s Mid Graft: 1.8cm x 2.7 cm, 118cm/s Distal anastomosis: 0.3 cm, 578 cm/s Note: A patent stent seen in the AVF LEFT UPPER EXTREMITY: Imaging of the subclavian, axillary, brachial, radial and ulnar arteries is within normal limits. The velocity of the subclavian, axillary, brachial arteries are monophasic due to the arterio-venous fistula. The velocity is mildly elevated indicating mild (30-50%) stenosis at the subclavian, and axillary arteries. The mid brachial artery has moderate (50-60%) stenosis. Subclavian artery 125 cm/s Monophasic Axillary artery 168 cm/s Monophasic Brachial artey 244 cm/s Monophasic Radial artery 44 cm/s Biphasic Ulnar artery 24 cm/s Biphasic
--- NOTE | 2018-11-04 14:20 | NUR ---
NURSE NOTES: Received order from Dr. Cannon to change enedelia cath to permacath and carried out. Per Dr. Cannon, Dr. Thompson is aware.
--- NOTE | 2018-11-04 14:40 | NUR ---
NURSE NOTES: Called [facility] to schedule dialysis for tomorrow and spoke to Brenda. She said she will inform the HD nurse. Still awaiting for call back for confirmation.
--- NOTE | 2018-11-04 14:49 | GI Progress Note ---
Assessment/Plan Problems: (1) Gastrostomy tube dependent ICD Codes: Z93.1 - Gastrostomy status SNOMED: 985399653, 018080421 (2) Vomiting ICD Codes: R11.10 - Vomiting, unspecified SNOMED: 875373998 (3) Fecal impaction ICD Codes: K56.41 - Fecal impaction SNOMED: 85803911 (4) Anemia ICD Codes: D64.9 - Anemia, unspecified SNOMED: 879819709 Qualifiers: Qualified Codes: D64.9 - Anemia, unspecified (5) Malfunction of gastrostomy tube ICD Codes: K94.23 - Gastrostomy malfunction SNOMED: 598439076 (6) Hematemesis ICD Codes: K92.0 - Hematemesis SNOMED: 5738070 Status: stable, unchanged Status Narrative Discussed with Dr. Taylor Assessment/Plan FINDINGS: 1. Large esophageal ulceration, active bleeding, most probably the source of bleeding. 2. Hiatal hernia. 3. Gastritis. 4. Duodenitis. 5. Two colonic polyps removed. 6. Internal hemorrhoid Recommendations ppi and Carafate reflux measures fu biopsy results GTF prn blood transfusion fu labs The patient was seen and examined at bedside and all new and available data was reviewed in the patients chart. I agree with the above findings, impression and plan. (Patient seen earlier today. Signature stamp does not reflect patient encounter time.). - Hilton Taylor MD Subjective Subjective Limited Objective Last 24 Hour Vital Signs Date Time Temp Pulse Resp B/P (MAP) Pulse Ox O2 Delivery O2 Flow Rate FiO2 11/04/18 12:00 97.6 62 18 118/57 (77) 97 11/04/18 12:00 60 11/04/18 12:00 Nasal Cannula 4.0 11/04/18 08:50 119/52 11/04/18 08:50 64 119/52 11/04/18 08:00 Nasal Cannula 4.0 11/04/18 08:00 98.6 64 20 119/52 (74) 95 11/04/18 08:00 64 11/04/18 07:19 Nasal Cannula 4.0 36 11/04/18 07:19 95 Nasal Cannula 4.0 36 11/04/18 07:19 65 18 Nasal Cannula 4.0 36 11/04/18 04:00 Nasal Cannula 4.0 11/04/18 04:00 97.8 72 16 125/57 (79) 97 11/04/18 04:00 69 11/04/18 00:00 98.0 66 20 137/61 (86) 98 11/04/18 00:00 Nasal Cannula 4.0 11/04/18 00:00 76 11/03/18 21:34 140/58 11/03/18 20:00 Nasal Cannula 4.0 11/03/18 20:00 97.3 76 16 140/58 (85) 92 11/03/18 19:57 97 Nasal Cannula 4.0 36 11/03/18 19:57 Nasal Cannula 4.0 36 11/03/18 19:56 85 20 Nasal Cannula 4.0 36 11/03/18 17:09 97.7 78 24 132/61 (84) 100 11/03/18 16:05 78 18 136/66 (89) 97 11/03/18 16:00 77 18 129/64 (85) 97 11/03/18 16:00 68 11/03/18 16:00 Nasal Cannula 4.0 11/03/18 15:55 72 18 138/66 (90) 96 Intake and Output 11/03/18 11/04/18 19:00 07:00 Intake Total 210 ml 220 ml Balance 210 ml 220 ml Free Water 50 ml 60 ml Tube Feeding 160 ml 160 ml # Bowel Movements 1 Laboratory Tests Test 11/03/18 17:20 11/04/18 03:10 White Blood Count 5.4 K/UL (4.8-10.8) Red Blood Count 2.32 M/UL (4.20-5.40) L Hemoglobin 7.1 G/DL (12.0-16.0) L Hematocrit 21.8 % (37.0-47.0) L Mean Corpuscular Volume 94 FL (80-99) Mean Corpuscular Hemoglobin 30.5 PG (27.0-31.0) Mean Corpuscular Hemoglobin Concent 32.5 G/DL (32.0-36.0) Red Cell Distribution Width 16.6 % (11.6-14.8) H Platelet Count 138 K/UL (150-450) L Mean Platelet Volume 4.6 FL (6.5-10.1) L Neutrophils (%) (Auto) % (45.0-75.0) Lymphocytes (%) (Auto) % (20.0-45.0) Monocytes (%) (Auto) % (1.0-10.0) Eosinophils (%) (Auto) % (0.0-3.0) Basophils (%) (Auto) % (0.0-2.0) Differential Total Cells Counted 100 Neutrophils % (Manual) 78 % (45-75) H Lymphocytes % (Manual) 12 % (20-45) L Monocytes % (Manual) 7 % (1-10) Eosinophils % (Manual) 2 % (0-3) Basophils % (Manual) 1 % (0-2) Band Neutrophils 0 % (0-8) Platelet Estimate Decreased L Platelet Morphology Normal Hypochromasia 1+ Anisocytosis 1+ Sodium Level 131 MMOL/L (136-145) L 139 MMOL/L (136-145) Potassium Level 4.3 MMOL/L (3.5-5.1) 4.1 MMOL/L (3.5-5.1) Chloride Level 92 MMOL/L (98-107) L 102 MMOL/L (98-107) Carbon Dioxide Level 27 MMOL/L (21-32) 27 MMOL/L (21-32) Anion Gap 12 mmol/L (5-15) 10 mmol/L (5-15) Blood Urea Nitrogen 116 mg/dL (7-18) H 52 mg/dL (7-18) H Creatinine 4.5 MG/DL (0.55-1.30) H 2.7 MG/DL (0.55-1.30) H Estimat Glomerular Filtration Rate mL/min (>60) mL/min (>60) Glucose Level 109 MG/DL (74-106) H 102 MG/DL (74-106) Calcium Level 7.5 MG/DL (8.5-10.1) L 8.3 MG/DL (8.5-10.1) L Phosphorus Level 3.6 MG/DL (2.5-4.9) Height (Feet): 5 Height (Inches): 5.00 Weight (Pounds): 125 General Appearance: no apparent distress Cardiovascular: normal rate Respiratory/Chest: normal breath sounds, no respiratory distress Abdominal Exam: normal bowel sounds, non tender, soft Extremities: non-tender Janene Ellis WORK[employer]' COMPENSATION HEARINGS OFFICER Nov 04, 2018 14:49
--- NOTE | 2018-11-04 15:15 | NUR ---
NURSE NOTES:WOUND CARE NOTES:Pt presents with multiple senile purpuras both upper ext. Shunt to L arm. Resolving pressure injury to sacrum .Wound bed moist-viable.with pink epithelialized borders (L)4cm x (W)3cm.Non-blanchable erythema without induration periwound. Stable dry eschar R heel without erythema or induration periwound (L)2cm x (W)2cm .L heel boggy with non-blanching erythema . Tx.Plan:Apply Triad moisture barrier to sacrum.Cover with Optifoam drsg .Change daily and prn. Apply Cavilon Skin Barrier to R and L heels .Cover with Optifoam drsgs.Change every 7 days and prn. APM /JEREMY mattress. Reposition at least every 2hours or as tolerated. Off-load heels with pillow.
[2018-11-04 16:00] VITALS: BP 144/72
--- NOTE | 2018-11-04 18:12 | NUR ---
NURSE NOTES: Called [facility] and spoke to Brenda again. She will notify the HD nurse.
--- NOTE | 2018-11-04 19:20 | NUR ---
HAND-OFF: Report given to WILIAM Slater. Patient stable and in no distress.
--- NOTE | 2018-11-04 19:30 | NUR ---
NURSE NOTES: Report received from WILIAM Doll. Observed pt lying on the bed. A/O x 2. No acuter distress noted. SR with custom shoemaker. GT intact and patent. IV site on R FA 22 G HL. Bed in the lowest position. Side rails up x3. Will continue to monitor.
[2018-11-04 20:00] VITALS: BP 138/58
[2018-11-04] MEDS: Miralax 17gm pkt GT SCH (20:27)
[2018-11-05] VITALS: BP 133/61
--- NOTE | 2018-11-05 | NUR ---
NURSE NOTES: Pt is NPO for procedure tomorrow. No signs of distress noted at this time. Will continue to monitor.
[2018-11-05 04:00] VITALS: BP 143/60
[2018-11-05 05:39] LABS: BASOPHILS % (AUTO) 0.5 % (0.0-2.0); EOSINOPHILS % (AUTO) 1.5 % (0.0-3.0); HEMATOCRIT 30.3 % (37.0-47.0); HEMOGLOBIN 9.9 G/DL (12.0-16.0); LYMPHOCYTES % (AUTO) 12.2 % (20.0-45.0); MEAN CORPUSCULAR VOLUME 90 FL (80-99); MONOCYTES % (AUTO) 7.8 % (1.0-10.0); PLATELET COUNT 143 K/UL (150-450); RED BLOOD COUNT 3.35 M/UL (4.20-5.40); RED CELL DISTRIBUTION WIDTH 16.6 % (11.6-14.8); WHITE BLOOD COUNT 6.1 K/UL (4.8-10.8)
[2018-11-05] MEDS: NovoLOG Insulin Flexpen SUBQ SCH ×5 (06:00→23:25)
[2018-11-05] MEDS ORDERED: Heparin Sod 1000 units/ml 10ml IV PRN (06:00)
[2018-11-05 06:21] LABS: ANION GAP 13 mmol/L (5-15); BLOOD UREA NITROGEN 65 mg/dL (7-18); CARBON DIOXIDE 24 MMOL/L (21-32); CHLORIDE 98 MMOL/L (98-107); CREATININE 3.4 MG/DL (0.55-1.30); POTASSIUM 4.5 MMOL/L (3.5-5.1); SODIUM 134 MMOL/L (136-145)
--- NOTE | 2018-11-05 07:15 | NUR ---
NURSE NOTES: Noted GT clogged and tired to push. The outside of tubing was cut. Left a message to and . awaiting for call back.
--- NOTE | 2018-11-05 07:30 | NUR ---
HAND-OFF: Report given to WILIAM Nunn.
[2018-11-05 08:00] VITALS: BP 136/63
--- NOTE | 2018-11-05 08:10 | NUR ---
NURSE NOTES: received pt in the bed, awake, confused, vital signs stable, no co pain, no SOB, respiration regular, skin warm and dry to touch, dressing dry and intact, AV shunt on left upper arm, Zaid catheter on RT femoral, HD today, pt NPO for Permcath placement, bed in low position, HOB elevated.
--- NOTE | 2018-11-05 08:15 | NUR ---
NURSE NOTES: Got a call back from SHERIF Mg and brought same size replacement kit at the bedside.
[2018-11-05] MEDS: Sucralfate 1gm tab GT SCH ×4 (09:00→20:37)
[2018-11-05] MEDS: Acyclovir 200mg Cap GT SCH ×3 (09:00→20:37)
[2018-11-05] MEDS: Minoxidil 2.5mg tab GT SCH ×2 (09:00→20:38)
[2018-11-05] MEDS: Fluconazole 100mg tab GT SCH ×2 (09:00→12:06)
[2018-11-05] MEDS: Nephrovite tab (Rena-Vite) GT SCH ×2 (09:00→12:06)
[2018-11-05] MEDS: Vitamin D 1000 IU Tab GT SCH ×2 (09:00→12:07)
--- NOTE | 2018-11-05 11:41 | NUR ---
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 * Increased kcal/prot needs R/T wound healing, renal dysfunction as evidenced by pt admitted w/ sacral full thickness open wound, resolving per WC specialist, w/ ESRD dx, on HD. CURRENT TF:NPO ENTERAL NUTRITION RECOMMENDATIONS: Nepro @ 42ml/hr x 22 hrs to provide 924ml, 1663kcal, 74g prot, 672ml free water, 149g carbs * Resume TF as medically appropriate * Rec Nepro @ 42ml/hr x 22 hrs -> meets 100% est kcal/prot needs. * HOLD TF 1 hr before and after synthroid meds * HOB over 30 degrees/ water flush per MD ADDITIONAL RECOMMENDATIONS: * RECALIBRATE BED SCALE-> ADDED WOUND MATTRESS + FLOOR TXR * Obtain dry wt post HD * Wound healing: add Zeke 1pkt BID + nephrovite x1 daily ->add Vit C per Nephro MD * Monitor lytes daily .
--- NOTE | 2018-11-05 11:42 | NUR ---
NURSE NOTES: GT changed by dr. Taylor.
[2018-11-05 12:00] VITALS: BP 142/67
--- NOTE | 2018-11-05 13:37 | GI Progress Note ---
Assessment/Plan Problems: (1) Gastrostomy tube dependent ICD Codes: Z93.1 - Gastrostomy status SNOMED: 040287692, 918866035 (2) Vomiting ICD Codes: R11.10 - Vomiting, unspecified SNOMED: 650437176 (3) Fecal impaction ICD Codes: K56.41 - Fecal impaction SNOMED: 82690216 (4) Anemia ICD Codes: D64.9 - Anemia, unspecified SNOMED: 788883480 Qualifiers: Qualified Codes: D64.9 - Anemia, unspecified (5) Malfunction of gastrostomy tube ICD Codes: K94.23 - Gastrostomy malfunction SNOMED: 729185903 (6) Hematemesis ICD Codes: K92.0 - Hematemesis SNOMED: 8303062 Status: stable Status Narrative Discussed with Dr. Taylor Assessment/Plan FINDINGS: 1. Large esophageal ulceration, active bleeding, most probably the source of bleeding. 2. Hiatal hernia. 3. Gastritis. 4. Duodenitis. 5. Two colonic polyps removed. 6. Internal hemorrhoid Recommendations G-tube changed at bedside today ppi and Carafate reflux measures fu biopsy results GTF prn blood transfusion fu labs The patient was seen and examined at bedside and all new and available data was reviewed in the patients chart. I agree with the above findings, impression and plan. (Patient seen earlier today. Signature stamp does not reflect patient encounter time.). - Hilton Taylor MD Subjective Subjective Limited Objective Last 24 Hour Vital Signs Date Time Temp Pulse Resp B/P (MAP) Pulse Ox O2 Delivery O2 Flow Rate FiO2 11/05/18 12:00 97.9 62 20 142/67 (92) 100 11/05/18 12:00 Nasal Cannula 4.0 11/05/18 09:00 136/63 11/05/18 09:00 74 136/63 11/05/18 08:00 97.9 60 19 136/63 (87) 97 11/05/18 08:00 Nasal Cannula 4.0 11/05/18 08:00 74 11/05/18 04:00 Nasal Cannula 4.0 11/05/18 04:00 65 11/05/18 04:00 97.7 60 18 143/60 (87) 98 11/05/18 00:00 Nasal Cannula 4.0 11/05/18 00:00 57 11/05/18 00:00 97.0 65 18 133/61 (85) 98 11/04/18 20:27 144/59 11/04/18 20:00 97.4 60 18 138/58 (84) 100 11/04/18 20:00 Nasal Cannula 4.0 36 11/04/18 20:00 60 11/04/18 20:00 Nasal Cannula 4.0 11/04/18 20:00 96 Nasal Cannula 4.0 36 11/04/18 20:00 60 18 Nasal Cannula 4.0 36 11/04/18 16:00 98.0 69 18 144/72 (96) 98 11/04/18 16:00 Nasal Cannula 4.0 11/04/18 15:34 66 Intake and Output 11/04/18 11/05/18 19:00 07:00 Intake Total 120 ml 260 ml Balance 120 ml 260 ml Free Water 80 ml 60 ml Tube Feeding 40 ml 200 ml Laboratory Tests Test 11/05/18 03:10 White Blood Count 6.1 K/UL (4.8-10.8) Red Blood Count 3.35 M/UL (4.20-5.40) L Hemoglobin 9.9 G/DL (12.0-16.0) #L Hematocrit 30.3 % (37.0-47.0) #L Mean Corpuscular Volume 90 FL (80-99) Mean Corpuscular Hemoglobin 29.6 PG (27.0-31.0) Mean Corpuscular Hemoglobin Concent 32.8 G/DL (32.0-36.0) Red Cell Distribution Width 16.6 % (11.6-14.8) H Platelet Count 143 K/UL (150-450) L Mean Platelet Volume 5.9 FL (6.5-10.1) L Neutrophils (%) (Auto) 78.0 % (45.0-75.0) H Lymphocytes (%) (Auto) 12.2 % (20.0-45.0) L Monocytes (%) (Auto) 7.8 % (1.0-10.0) Eosinophils (%) (Auto) 1.5 % (0.0-3.0) Basophils (%) (Auto) 0.5 % (0.0-2.0) Sodium Level 134 MMOL/L (136-145) L Potassium Level 4.5 MMOL/L (3.5-5.1) Chloride Level 98 MMOL/L (98-107) Carbon Dioxide Level 24 MMOL/L (21-32) Anion Gap 13 mmol/L (5-15) Blood Urea Nitrogen 65 mg/dL (7-18) H Creatinine 3.4 MG/DL (0.55-1.30) H Estimat Glomerular Filtration Rate mL/min (>60) Glucose Level 73 MG/DL (74-106) L Calcium Level 8.0 MG/DL (8.5-10.1) L Height (Feet): 5 Height (Inches): 5.00 Weight (Pounds): 124 General Appearance: WD/WN, no apparent distress, alert Cardiovascular: normal rate Respiratory/Chest: normal breath sounds, no respiratory distress Abdominal Exam: normal bowel sounds, non tender, soft Extremities: normal range of motion, non-tender Janene Ellis NP Nov 05, 2018 13:37
[2018-11-05] MEDS ORDERED: Heparin 1000 units/ml 1ml Vial INJ PRN (14:00)
--- NOTE | 2018-11-05 14:06 | Nephrology Progress Note ---
Assessment/Plan Plan Worsening Anemia. ESRD HD MWF+ HD Patient has no family, no DPOA. SOB - see orders. CXR CHF. s/p Endoscopies - Large Esophageal Ulcer R/O Chrystal Esophagitis. Patient with recurrent and severe oral thrush. ID on the case. m/p this is the origin of the GI bleed. (Colonoscopy -polyps. Biopsied). Couldn't dialyze patient due to hematoma Lt. upper arm. Needs a PermCath. Patient has no family or DPOA. PermCath is urgent to maintain life! Cannot find a central vein for a PermCath. Had a Zaid cath placed by IR. Case DW Dr. Bojorquezarian! To convert Emir to PermCath > IR apparently cannot do it. Trying to see if Vascular Surgery will do! Subjective Subjective Confused Objective Objective Last 24 Hour Vital Signs Date Time Temp Pulse Resp B/P (MAP) Pulse Ox O2 Delivery O2 Flow Rate FiO2 11/05/18 12:00 97.9 62 20 142/67 (92) 100 11/05/18 12:00 Nasal Cannula 4.0 11/05/18 09:00 136/63 11/05/18 09:00 74 136/63 11/05/18 08:00 97.9 60 19 136/63 (87) 97 11/05/18 08:00 Nasal Cannula 4.0 11/05/18 08:00 74 11/05/18 04:00 Nasal Cannula 4.0 11/05/18 04:00 65 11/05/18 04:00 97.7 60 18 143/60 (87) 98 11/05/18 00:00 Nasal Cannula 4.0 11/05/18 00:00 57 11/05/18 00:00 97.0 65 18 133/61 (85) 98 11/04/18 20:27 144/59 11/04/18 20:00 97.4 60 18 138/58 (84) 100 11/04/18 20:00 Nasal Cannula 4.0 36 11/04/18 20:00 60 11/04/18 20:00 Nasal Cannula 4.0 11/04/18 20:00 96 Nasal Cannula 4.0 36 11/04/18 20:00 60 18 Nasal Cannula 4.0 36 11/04/18 16:00 98.0 69 18 144/72 (96) 98 11/04/18 16:00 Nasal Cannula 4.0 11/04/18 15:34 66 Intake and Output 11/04/18 11/05/18 19:00 07:00 Intake Total 120 ml 260 ml Balance 120 ml 260 ml Free Water 80 ml 60 ml Tube Feeding 40 ml 200 ml Laboratory Tests 11/05/18 03:10: White Blood Count 6.1, Red Blood Count 3.35L, Hemoglobin 9.9#L, Hematocrit 30.3# L, Mean Corpuscular Volume 90, Mean Corpuscular Hemoglobin 29.6, Mean Corpuscular Hemoglobin Concent 32.8, Red Cell Distribution Width 16.6H, Platelet Count 143L, Mean Platelet Volume 5.9L, Neutrophils (%) (Auto) 78.0H, Lymphocytes (%) (Auto) 12.2L, Monocytes (%) (Auto) 7.8, Eosinophils (%) (Auto) 1.5, Basophils (%) (Auto) 0.5, Sodium Level 134L, Potassium Level 4.5, Chloride Level 98, Carbon Dioxide Level 24, Anion Gap 13, Blood Urea Nitrogen 65H, Creatinine 3.4H, Estimat Glomerular Filtration Rate , Glucose Level 73L, Calcium Level 8.0L Height (Feet): 5 Height (Inches): 5.00 Weight (Pounds): 124 Objective CV RR Cachechtic Lungs B wheezes Abd SNT. BS + PEG. E M. wasting. GIANNI AVF infiltrated with hematoma. Has a new Zaid. Raul Cannon MD Nov 05, 2018 14:06
[2018-11-05 16:00] VITALS: BP 144/61
--- NOTE | 2018-11-05 18:25 | NUR ---
NURSE NOTES: HD completed, 2000cc out, vital signs stable, continue monitoring.
--- NOTE | 2018-11-05 19:13 | NUR ---
HAND-OFF: Report given to MARGIE SWAIN.
--- NOTE | 2018-11-05 19:20 | NUR ---
NURSE NOTES: Received report from Rola RN, pt. in bed, alert to name- opens eyes, no signs or symptoms of acute cardiac or respiratory distress noted, bed in lowest position and call light within easy reach, bed alarm on side rails up x's3 and safety brakes engaged, cardiac monitoring on, pt. appears to be sating well on 4L NC at 100%- no distress noted, pt. has nephro running via G tube at 40cc/hr- no residual noted, - per endorsement pt. is NPO at midnight, pt. is clean and dry and appears to be resting comfortably, dressings clean and dry, left AV shunt- not being used for hemodialysis, Rt. femoral Zaid cath- intact, RFA 22G IV intact and patent, safety measures continued, will continue with plan of care.
[2018-11-05 20:00] VITALS: BP 135/67
[2018-11-05] MEDS: Epoetin Alfa-EPBX(ESRD on dialysis)10,000 unit/ml vial SUBQ SCH (20:37)
[2018-11-05] MEDS: Miralax 17gm pkt GT SCH (20:38)
--- NOTE | 2018-11-05 22:53 | Vascular Surgery Progress Note ---
Subjective Subjective All noted On dialysis via right femoral Zaid cath Awaiting for permcath tomorrow Objective Objective Last 24 Hour Vital Signs Date Time Temp Pulse Resp B/P (MAP) Pulse Ox O2 Delivery O2 Flow Rate FiO2 11/05/18 20:38 135/67 11/05/18 20:28 97 Nasal Cannula 4.0 36 11/05/18 20:28 Nasal Cannula 4.0 36 11/05/18 20:00 Nasal Cannula 4.0 11/05/18 20:00 97.7 65 20 135/67 (89) 100 11/05/18 16:00 96.6 62 21 144/61 (88) 98 11/05/18 16:00 61 11/05/18 16:00 Nasal Cannula 4.0 11/05/18 12:00 97.9 62 20 142/67 (92) 100 11/05/18 12:00 73 11/05/18 12:00 Nasal Cannula 4.0 11/05/18 09:00 136/63 11/05/18 09:00 74 136/63 11/05/18 08:14 Nasal Cannula 4.0 36 11/05/18 08:13 96 Nasal Cannula 4.0 36 11/05/18 08:00 97.9 60 19 136/63 (87) 97 11/05/18 08:00 Nasal Cannula 4.0 11/05/18 08:00 74 11/05/18 04:00 Nasal Cannula 4.0 11/05/18 04:00 65 11/05/18 04:00 97.7 60 18 143/60 (87) 98 11/05/18 00:00 Nasal Cannula 4.0 11/05/18 00:00 57 11/05/18 00:00 97.0 65 18 133/61 (85) 98 Intake and Output 11/04/18 11/05/18 18:59 06:59 Intake Total 80 ml 300 ml Balance 80 ml 300 ml Free Water 80 ml 60 ml Tube Feeding 240 ml Laboratory Tests Test 11/05/18 03:10 White Blood Count 6.1 K/UL (4.8-10.8) Red Blood Count 3.35 M/UL (4.20-5.40) L Hemoglobin 9.9 G/DL (12.0-16.0) #L Hematocrit 30.3 % (37.0-47.0) #L Mean Corpuscular Volume 90 FL (80-99) Mean Corpuscular Hemoglobin 29.6 PG (27.0-31.0) Mean Corpuscular Hemoglobin Concent 32.8 G/DL (32.0-36.0) Red Cell Distribution Width 16.6 % (11.6-14.8) H Platelet Count 143 K/UL (150-450) L Mean Platelet Volume 5.9 FL (6.5-10.1) L Neutrophils (%) (Auto) 78.0 % (45.0-75.0) H Lymphocytes (%) (Auto) 12.2 % (20.0-45.0) L Monocytes (%) (Auto) 7.8 % (1.0-10.0) Eosinophils (%) (Auto) 1.5 % (0.0-3.0) Basophils (%) (Auto) 0.5 % (0.0-2.0) Sodium Level 134 MMOL/L (136-145) L Potassium Level 4.5 MMOL/L (3.5-5.1) Chloride Level 98 MMOL/L (98-107) Carbon Dioxide Level 24 MMOL/L (21-32) Anion Gap 13 mmol/L (5-15) Blood Urea Nitrogen 65 mg/dL (7-18) H Creatinine 3.4 MG/DL (0.55-1.30) H Estimat Glomerular Filtration Rate mL/min (>60) Glucose Level 73 MG/DL (74-106) L Calcium Level 8.0 MG/DL (8.5-10.1) L Height (Feet): 5 Height (Inches): 5.00 Weight (Pounds): 124 Objective Awake but confused Left arm av shunt pulsatile thrill with upper arm hematoma+ cvs rrr lungs cta abd soft nontender Right femoral Zaid cath c/d/i Feet warm intact foot dopplers Assessment/Plan Assessment ESRD on HD s/p right femoral Zaid cath by radiology Left arm av shunt hematoma s/p self hd needles removal Left arm av shunt stenosis with pulsatile thrill and ecchymosis Psychos Dementia No family no POA Peptic ulcer Cachexia HTN Plan Change Zaid cath to permcath Rest left arm av shunt 4 wks until all hematoma resolve Then will need left arm fistulogram Psych & social work eval Needs POA d/w pt's nurse Lewis Thompson MD Nov 05, 2018 22:53
--- NOTE | 2018-11-05 23:25 | NUR ---
NURSE NOTES: 1U of insulin given which is half the dose, because patient will be NPO at midnight.
[2018-11-06] VITALS (11 sets, daily range): BP systolic 109–151; BP diastolic 51–72
[2018-11-06 03:48] LABS: BASOPHILS % (AUTO) 0.4 % (0.0-2.0); EOSINOPHILS % (AUTO) 1.6 % (0.0-3.0); HEMOGLOBIN 10.8 G/DL (12.0-16.0); LYMPHOCYTES % (AUTO) 9.6 % (20.0-45.0); MEAN CORPUSCULAR VOLUME 90 FL (80-99); NEUTROPHILS % (AUTO) 81.4 % (45.0-75.0); PLATELET COUNT 156 K/UL (150-450); RED BLOOD COUNT 3.67 M/UL (4.20-5.40); RED CELL DISTRIBUTION WIDTH 16.7 % (11.6-14.8); WHITE BLOOD COUNT 7.2 K/UL (4.8-10.8)
[2018-11-06 04:26] LABS: ANION GAP 8 mmol/L (5-15); BLOOD UREA NITROGEN 47 mg/dL (7-18); CALCIUM 7.7 MG/DL (8.5-10.1); CARBON DIOXIDE 28 MMOL/L (21-32); CHLORIDE 99 MMOL/L (98-107); POTASSIUM 3.6 MMOL/L (3.5-5.1); SODIUM 135 MMOL/L (136-145)
[2018-11-06] MEDS: NovoLOG Insulin Flexpen SUBQ SCH ×4 (05:05→23:16)
--- NOTE | 2018-11-06 07:08 | NUR ---
HAND-OFF: Report given to Korina Rn, pt. remains stable and no signs of distress noted.
--- NOTE | 2018-11-06 07:35 | NUR ---
NURSE NOTES: Report received from Tamica SWAIN.Pt resting quietly in bed awake,alert looking around answers verbally to simple questions,noted no resp distress,on 4L NC 100 % o2 sat,no signs of pain or discomfort SR on the monitor,pt anuric,IV site to RFA intact,skin warm and dry,SR up x2 HOB elevated ,bed lock in low position,will continue with plans of care.
--- NOTE | 2018-11-06 08:00 | NUR ---
NURSE NOTES: Pt kept NPO for Perma Cath Insertion
[2018-11-06] MEDS: Sucralfate 1gm tab GT SCH ×4 (09:35→20:12)
[2018-11-06] MEDS: Fluconazole 100mg tab GT SCH (09:36)
[2018-11-06] MEDS: Nephrovite tab (Rena-Vite) GT SCH (09:36)
[2018-11-06] MEDS: Acyclovir 200mg Cap GT SCH ×2 (09:37→20:12)
[2018-11-06] MEDS: Vitamin D 1000 IU Tab GT SCH (09:37)
[2018-11-06] MEDS: Minoxidil 2.5mg tab GT SCH ×2 (09:38→20:12)
--- NOTE | 2018-11-06 11:35 | GI Progress Note ---
Assessment/Plan Problems: (1) Gastrostomy tube dependent ICD Codes: Z93.1 - Gastrostomy status SNOMED: 731867333, 124921281 (2) Vomiting ICD Codes: R11.10 - Vomiting, unspecified SNOMED: 847997094 (3) Fecal impaction ICD Codes: K56.41 - Fecal impaction SNOMED: 53672818 (4) Anemia ICD Codes: D64.9 - Anemia, unspecified SNOMED: 546655851 Qualifiers: Qualified Codes: D64.9 - Anemia, unspecified (5) Malfunction of gastrostomy tube ICD Codes: K94.23 - Gastrostomy malfunction SNOMED: 030844118 (6) Hematemesis ICD Codes: K92.0 - Hematemesis SNOMED: 3379507 Status: stable Status Narrative Discussed with Dr. Taylor Assessment/Plan FINDINGS: 1. Large esophageal ulceration, active bleeding, most probably the source of bleeding. 2. Hiatal hernia. 3. Gastritis. 4. Duodenitis. 5. Two colonic polyps removed. 6. Internal hemorrhoid Recommendations G-tube changed at bedside today ppi and Carafate reflux measures fu biopsy results GTF prn blood transfusion fu labs The patient was seen and examined at bedside and all new and available data was reviewed in the patients chart. I agree with the above findings, impression and plan. (Patient seen earlier today. Signature stamp does not reflect patient encounter time.). - Hilton Taylor MD Subjective Subjective Limited Objective Last 24 Hour Vital Signs Date Time Temp Pulse Resp B/P (MAP) Pulse Ox O2 Delivery O2 Flow Rate FiO2 11/06/18 09:38 139/62 11/06/18 09:38 60 139/62 11/06/18 08:00 Nasal Cannula 4.0 11/06/18 08:00 97.8 60 22 136/60 (85) 97 11/06/18 07:19 67 11/06/18 04:00 Nasal Cannula 4.0 11/06/18 04:00 66 11/06/18 04:00 97.7 65 20 142/62 (88) 100 11/06/18 00:00 Nasal Cannula 4.0 11/06/18 00:00 63 11/06/18 00:00 97.8 69 20 151/72 (98) 100 11/05/18 20:38 135/67 2/6/19 20:28 97 Nasal Cannula 4.0 36 11/05/18 20:28 Nasal Cannula 4.0 36 11/05/18 20:00 75 11/05/18 20:00 Nasal Cannula 4.0 11/05/18 20:00 97.7 65 20 135/67 (89) 100 11/05/18 16:00 96.6 62 21 144/61 (88) 98 11/05/18 16:00 61 11/05/18 16:00 Nasal Cannula 4.0 11/05/18 12:00 97.9 62 20 142/67 (92) 100 11/05/18 12:00 73 11/05/18 12:00 Nasal Cannula 4.0 Intake and Output 11/05/18 11/06/18 19:00 07:00 Intake Total 250 ml 200 ml Output Total 2000 ml Balance -1750 ml 200 ml Free Water 50 ml Tube Feeding 200 ml 200 ml Hemodialysis UF 2000 ml # Bowel Movements 1 Laboratory Tests Test 11/06/18 02:40 White Blood Count 7.2 K/UL (4.8-10.8) Red Blood Count 3.67 M/UL (4.20-5.40) L Hemoglobin 10.8 G/DL (12.0-16.0) L Hematocrit 33.0 % (37.0-47.0) L Mean Corpuscular Volume 90 FL (80-99) Mean Corpuscular Hemoglobin 29.5 PG (27.0-31.0) Mean Corpuscular Hemoglobin Concent 32.9 G/DL (32.0-36.0) Red Cell Distribution Width 16.7 % (11.6-14.8) H Platelet Count 156 K/UL (150-450) Mean Platelet Volume 5.3 FL (6.5-10.1) L Neutrophils (%) (Auto) 81.4 % (45.0-75.0) H Lymphocytes (%) (Auto) 9.6 % (20.0-45.0) L Monocytes (%) (Auto) 7.0 % (1.0-10.0) Eosinophils (%) (Auto) 1.6 % (0.0-3.0) Basophils (%) (Auto) 0.4 % (0.0-2.0) Sodium Level 135 MMOL/L (136-145) L Potassium Level 3.6 MMOL/L (3.5-5.1) Chloride Level 99 MMOL/L (98-107) Carbon Dioxide Level 28 MMOL/L (21-32) Anion Gap 8 mmol/L (5-15) Blood Urea Nitrogen 47 mg/dL (7-18) H Creatinine 3.0 MG/DL (0.55-1.30) H Estimat Glomerular Filtration Rate mL/min (>60) Glucose Level 129 MG/DL (74-106) H Calcium Level 7.7 MG/DL (8.5-10.1) L Height (Feet): 5 Height (Inches): 5.00 Weight (Pounds): 123 General Appearance: WD/WN, no apparent distress, alert, thin Cardiovascular: normal rate Respiratory/Chest: normal breath sounds, no respiratory distress Abdominal Exam: normal bowel sounds, non tender, soft, GT site - Clean dry and intact Extremities: normal range of motion, non-tender Janene Ellis NP Nov 06, 2018 11:35
--- NOTE | 2018-11-06 13:19 | Infectious Diseases Prog Note ---
Assessment/Plan Assessment/Plan A: 1. Mouth ulcers, would like to rule out herpes of the mouth. 2. She has thrush, would like to rule out Chrystal esophagitis. 3. Renal failure, ESRD 4. We would also like to rule out CMV esophagitis. 5. Schizophrenia. 6. Esophageal ulcer 7. Anemia 8. GI bleeding 9. DM P: Continue Acyclovir X 5 days & Fluconazole X 4 days will f/u cultures Subjective ROS Limited/Unobtainable: Yes Respiratory: Reports: no symptoms Cardiovascular: Reports: no symptoms Gastrointestinal/Abdominal: Reports: no symptoms Genitourinary: Reports: no symptoms Allergies: Coded Allergies: No Known Allergies (Unverified , 05/11/18) Objective Vital Signs Last 24 Hour Vital Signs Date Time Temp Pulse Resp B/P (MAP) Pulse Ox O2 Delivery O2 Flow Rate FiO2 11/06/18 11:54 59 11/06/18 09:38 139/62 11/06/18 09:38 60 139/62 11/06/18 08:00 Nasal Cannula 4.0 11/06/18 08:00 97.8 60 22 136/60 (85) 97 11/06/18 07:19 67 11/06/18 04:00 Nasal Cannula 4.0 11/06/18 04:00 66 11/06/18 04:00 97.7 65 20 142/62 (88) 100 11/06/18 00:00 Nasal Cannula 4.0 11/06/18 00:00 63 11/06/18 00:00 97.8 69 20 151/72 (98) 100 11/05/18 20:38 135/67 11/05/18 20:28 97 Nasal Cannula 4.0 36 11/05/18 20:28 Nasal Cannula 4.0 36 11/05/18 20:00 75 11/05/18 20:00 Nasal Cannula 4.0 11/05/18 20:00 97.7 65 20 135/67 (89) 100 11/05/18 16:00 96.6 62 21 144/61 (88) 98 11/05/18 16:00 61 11/05/18 16:00 Nasal Cannula 4.0 Height (Feet): 5 Height (Inches): 5.00 Weight (Pounds): 123 General Appearance: no acute distress HEENT: mucous membranes moist Respiratory/Chest: lungs clear Cardiovascular: normal rate, other - R femoral HD line, left arm AV graft Abdomen: soft, non tender Extremities: no edema Skin: other - nasal skin lesion Neurologic/Psychiatric: alert, responsive Laboratory Tests Test 11/06/18 02:40 White Blood Count 7.2 K/UL (4.8-10.8) Red Blood Count 3.67 M/UL (4.20-5.40) L Hemoglobin 10.8 G/DL (12.0-16.0) L Hematocrit 33.0 % (37.0-47.0) L Mean Corpuscular Volume 90 FL (80-99) Mean Corpuscular Hemoglobin 29.5 PG (27.0-31.0) Mean Corpuscular Hemoglobin Concent 32.9 G/DL (32.0-36.0) Red Cell Distribution Width 16.7 % (11.6-14.8) H Platelet Count 156 K/UL (150-450) Mean Platelet Volume 5.3 FL (6.5-10.1) L Neutrophils (%) (Auto) 81.4 % (45.0-75.0) H Lymphocytes (%) (Auto) 9.6 % (20.0-45.0) L Monocytes (%) (Auto) 7.0 % (1.0-10.0) Eosinophils (%) (Auto) 1.6 % (0.0-3.0) Basophils (%) (Auto) 0.4 % (0.0-2.0) Sodium Level 135 MMOL/L (136-145) L Potassium Level 3.6 MMOL/L (3.5-5.1) Chloride Level 99 MMOL/L (98-107) Carbon Dioxide Level 28 MMOL/L (21-32) Anion Gap 8 mmol/L (5-15) Blood Urea Nitrogen 47 mg/dL (7-18) H Creatinine 3.0 MG/DL (0.55-1.30) H Estimat Glomerular Filtration Rate mL/min (>60) Glucose Level 129 MG/DL (74-106) H Calcium Level 7.7 MG/DL (8.5-10.1) L Current Medications Medications (Trade) Dose Ordered Sig/Konrad Route PRN Reason Start Time Stop Time Status Last Admin Dose Admin Acetaminophen (Tylenol) 650 mg Q4H PRN GT Mild Pain/Temp > 100.5 2/1/19 18:30 11/23/18 18:29 Acyclovir (Zovirax) 200 mg Q12HR GT 11/01/18 21:00 12/01/18 20:59 11/06/18 09:37 Amlodipine Besylate (Norvasc) 10 mg DAILY GT 10/31/18 20:00 11/30/18 19:59 11/06/18 09:38 Dextrose (Dextrose 50%) 25 ml Q30M PRN IV Hypoglycemia 10/31/18 18:30 11/23/18 18:29 Dextrose (Dextrose 50%) 50 ml Q30M PRN IV Hypoglycemia 10/31/18 18:30 11/23/18 18:48 Epoetin Chau (Epoetin Chau(ESRD on dialysis)) 10,000 unit SAT- SUBQ 11/05/18 21:00 12/05/18 20:59 11/05/18 20:37 Fluconazole (Diflucan) 100 mg DAILY GT 11/02/18 09:00 11/09/18 08:59 11/06/18 09:36 Guaifenesin/ Dextromethorphan (Robitussin DM Syrup) 10 ml Q8H PRN GT For Cough 10/31/18 18:30 11/27/18 18:29 Insulin Aspart (NovoLOG) EVERY 6 HOURS SUBQ 10/31/18 20:00 11/30/18 19:59 11/05/18 23:25 Lansoprazole (Prevacid) 30 mg BID GT 10/31/18 20:00 11/30/18 19:59 11/06/18 09:36 Levothyroxine Sodium (Synthroid) 150 mcg DAILY@0630 GT 11/01/18 06:30 11/24/18 06:29 11/06/18 05:33 Metoclopramide HCl (Reglan) 10 mg Q6H PRN IVP Nausea & Vomiting 10/31/18 18:30 11/23/18 18:29 Minoxidil (Loniten) 2.5 mg Q12HR GT 10/31/18 21:00 11/23/18 20:59 11/06/18 09:38 Polyethylene Glycol (Miralax) 17 gm BEDTIME GT 10/31/18 21:00 2/24/19 20:59 11/05/18 20:38 Sucralfate (Carafate) 1 gm FOUR TIMES A DAY GT 11/01/18 13:00 12/01/18 12:59 11/06/18 09:35 Vitamin B Complex/ Vit C/Folic Acid (Nephrovite) 1 tab DAILY GT 11/01/18 09:00 11/24/18 08:59 11/06/18 09:36 Vitamin D (Vitamin D) 1,000 intlu DAILY GT 11/01/18 09:00 11/24/18 08:59 11/06/18 09:37 Kaden Aguilar MD Nov 06, 2018 13:19
[2018-11-06] MEDS ORDERED: Lidocaine 2% 20mg/ml/Epi 0.005mg/ml 20ml vial INJ SCH (13:30)
[2018-11-06] MEDS ORDERED: Heparin Sod 1000 units/ml 10ml INJ SCH (13:30)
[2018-11-06] MEDS ORDERED: Heparin 2000 units/Ns 1000ml INJ SCH (13:30)
[2018-11-06] MEDS ORDERED: ceFAZolin sod 1 GM in D5W 55 ML IVP SCH (13:45)
--- NOTE | 2018-11-06 14:00 | NUR ---
NURSE NOTES: Pt brought downstairs to Radiology per bed for Permacath Insertion,awake alert stable in no resp distress.
--- NOTE | 2018-11-06 14:39 | Pre-Procedure Note/Attestation ---
Pre-Procedure Note/Attestation Complete Prior to Procedure Planned Procedure: right Procedure Narrative: right femoral permacath Indications for Procedure Pre-Operative Diagnosis: requires long term care phlebotomist hemodialysis access Attestation I attest that I discussed the nature of the procedure; its benefits; risks and complications; and alternatives (and the risks and benefits of such alternatives ), prior to the procedure, with the patient (or the patient's legal bottling equipment sales representative). I attest that, if there was a reasonable possibility of needing a blood transfusion, the patient (or the patient's legal bottling equipment sales representative) was given the [facility] standardized written summary, pursuant to the Jony Fanny Blood Safety Act ([place] Health and Safety Code # 1645, as amended). I attest that I re-evaluated the patient just prior to the surgery and that there has been no change in the patient's H&P, except as documented below: Dustin Davidson MD Nov 06, 2018 14:39
--- NOTE | 2018-11-06 15:35 | NUR ---
NURSE NOTES: pt back to unit per bed accompanied by transporter awake,alert stable in no distress ,perma cath site to RT Femoral intact drsg dry,no bleeding noted.will continue to monitor pt.
--- NOTE | 2018-11-06 15:57 | Nephrology Progress Note ---
Assessment/Plan Plan Worsening Anemia. ESRD HD MWF+ HD Patient has no family, no DPOA. SOB - see orders. CXR CHF. s/p Endoscopies - Large Esophageal Ulcer R/O Chrystal Esophagitis. Patient with recurrent and severe oral thrush. ID on the case. m/p this is the origin of the GI bleed. (Colonoscopy -polyps. Biopsied). Couldn't dialyze patient due to hematoma Lt. upper arm. Needs a PermCath. Patient has no family or DPOA. PermCath is urgent to maintain life! Has New PermCath. [facility] not answering! Subjective Subjective Confused Objective Objective Last 24 Hour Vital Signs Date Time Temp Pulse Resp B/P (MAP) Pulse Ox O2 Delivery O2 Flow Rate FiO2 11/06/18 15:10 79 22 109/51 (70) 96 11/06/18 15:05 72 22 114/55 (74) 98 11/06/18 15:00 72 22 111/54 (73) 97 11/06/18 14:55 79 20 138/70 (92) 97 11/06/18 14:50 67 22 113/60 (77) 97 11/06/18 13:41 61 20 3.0 11/06/18 12:00 97.2 61 21 134/61 (85) 99 11/06/18 12:00 Nasal Cannula 4.0 11/06/18 11:54 59 11/06/18 09:38 139/62 11/06/18 09:38 60 139/62 11/06/18 08:00 Nasal Cannula 4.0 11/06/18 08:00 97.8 60 22 136/60 (85) 97 11/06/18 07:19 67 11/06/18 04:00 Nasal Cannula 4.0 11/06/18 04:00 66 11/06/18 04:00 97.7 65 20 142/62 (88) 100 11/06/18 00:00 Nasal Cannula 4.0 11/06/18 00:00 63 11/06/18 00:00 97.8 69 20 151/72 (98) 100 11/05/18 20:38 135/67 11/05/18 20:28 97 Nasal Cannula 4.0 36 11/05/18 20:28 Nasal Cannula 4.0 36 11/05/18 20:00 75 11/05/18 20:00 Nasal Cannula 4.0 11/05/18 20:00 97.7 65 20 135/67 (89) 100 11/05/18 16:00 96.6 62 21 144/61 (88) 98 11/05/18 16:00 61 11/05/18 16:00 Nasal Cannula 4.0 Intake and Output 11/05/18 11/06/18 19:00 07:00 Intake Total 250 ml 200 ml Output Total 2000 ml Balance -1750 ml 200 ml Free Water 50 ml Tube Feeding 200 ml 200 ml Hemodialysis UF 2000 ml # Bowel Movements 1 Laboratory Tests 11/06/18 02:40: White Blood Count 7.2, Red Blood Count 3.67L, Hemoglobin 10.8L, Hematocrit 33.0L , Mean Corpuscular Volume 90, Mean Corpuscular Hemoglobin 29.5, Mean Corpuscular Hemoglobin Concent 32.9, Red Cell Distribution Width 16.7H, Platelet Count 156, Mean Platelet Volume 5.3L, Neutrophils (%) (Auto) 81.4H, Lymphocytes (%) (Auto) 9.6L, Monocytes (%) (Auto) 7.0, Eosinophils (%) (Auto) 1.6, Basophils (%) (Auto) 0.4, Sodium Level 135L, Potassium Level 3.6, Chloride Level 99, Carbon Dioxide Level 28, Anion Gap 8, Blood Urea Nitrogen 47H, Creatinine 3.0H, Estimat Glomerular Filtration Rate , Glucose Level 129H, Calcium Level 7.7L Height (Feet): 5 Height (Inches): 5.00 Weight (Pounds): 123 Objective CV RR Cachechtic Lungs B wheezes Abd SNT. BS + PEG. E M. wasting. GIANNI AVF infiltrated with hematoma. Has a new Zaid. Raul Cannon MD Nov 06, 2018 15:57
[2018-11-06] MEDS ORDERED: Lidocaine 2% 20mg/ml/Epi 0.005mg/ml 20ml vial ONE (15:58)
--- NOTE | 2018-11-06 16:00 | NUR ---
NURSE NOTES: Dr Verde at bedside,with orders for Hemodialysis tomorrow and discharge orders after Hemodialysis.
[2018-11-06] MEDS ORDERED: Heparin Sod 1000 units/ml 10ml IV PRN (16:01)
[2018-11-06] MEDS ORDERED: Heparin 1000 units/ml 1ml Vial INJ PRN (16:02)
--- NOTE | 2018-11-06 16:10 | Diagnostic Imaging Report ---
Indication: Patient requires long-term hemodialysis. Findings: After the indications, procedure, risks, complications, and alternatives of the procedure were explained, written informed consent was obtained. Patient was brought to the angio-fluoroscopic suite and placed supine on the table. All elements of maximum sterile barrier technique were followed including use of a cap and mask, sterile gown, sterile gloves, and a large sterile sheet. Alcohol used to prep the skin. 1% lidocaine was used to anesthetize the skin and subcutaneous tissue. Lidocaine infiltration of the right anterior thigh was then performed followed by dermatotomy. A tunnel of lidocaine was then made between this site and the pre-existing temporary catheter entry site. A 14.5 tajik 30 cm dual-lumen catheter was then tunneled through the tract. An 035 Amplatz wire placed within the femoral vein catheter was then exchanged for a dilator. The catheter was then inserted into the last dilator/peel-away sheath such that the tip resides in the IVC. The dilator/peel-away sheath and wire were removed and the catheter was completely buried under the skin. Proximal portion of the catheter was secured to the skin using 2-0 Prolene suture. Both ports aspirate and flush easily. The dermatotomy site was closed with Dermabond. Total fluoroscopic time: 48 seconds Impression: Successful placement of tunneled right femoral hemodialysis catheter. No complications. Final fluoroscopic images show the catheter tip at the junction of the right iliac vein and IVC. The catheter is cleared for immediate hemodialysis.
--- NOTE | 2018-11-06 17:07 | NUR ---
*-* DISCHARGED PLANNED *-* PATIENT IS DISCHARGED TO: [facility] RO[facility] T:[phone] FOR NURSE TO NURSE REPORT CALL [facility] [id number] TO SET UP TRANSPORTATION ONCE PT READY TO GO AFTER HD
--- NOTE | 2018-11-06 19:05 | NUR ---
HAND-OFF: Report given to Tamica SWAIN.Pt resting quietly in bed awake,stable,no resp distress presented during the shift.
--- NOTE | 2018-11-06 19:15 | NUR ---
NURSE NOTES: Received report from Korina RN, pt. in bed, alert to name- opens eyes, no signs or symptoms of acute cardiac or respiratory distress noted, bed in lowest position and call light within easy reach, bed alarm on side rails up x's3 and safety brakes engaged, cardiac monitoring on, pt. appears to be sating well on 4L NC at 99%- no distress noted, pt. has nephro running via G tube at 40cc/hr- no residual noted. Pt. is clean and dry and appears to be resting comfortably, dressings clean and dry, left AV shunt- not being used for hemodialysis, RFA 22G IV intact and patent, Rt. femoral PermCath intact for Hemodialyses, safety measures continued, will continue with plan of care.
[2018-11-06] MEDS: Miralax 17gm pkt GT SCH (20:12)
[2018-11-07] VITALS (7 sets, daily range): BP systolic 122–143; BP diastolic 58–78
[2018-11-07 05:50] LABS: HEMATOCRIT 34.3 % (37.0-47.0); HEMOGLOBIN 11.1 G/DL (12.0-16.0); MEAN CORPUSCULAR VOLUME 92 FL (80-99); PLATELET COUNT 189 K/UL (150-450); RED BLOOD COUNT 3.72 M/UL (4.20-5.40); RED CELL DISTRIBUTION WIDTH 17.2 % (11.6-14.8); WHITE BLOOD COUNT 8.7 K/UL (4.8-10.8)
[2018-11-07] MEDS: NovoLOG Insulin Flexpen SUBQ SCH ×3 (05:52→17:20)
[2018-11-07 06:22] LABS: ANION GAP 11 mmol/L (5-15); BLOOD UREA NITROGEN 60 mg/dL (7-18); CALCIUM 8.2 MG/DL (8.5-10.1); CARBON DIOXIDE 25 MMOL/L (21-32); CHLORIDE 98 MMOL/L (98-107); CREATININE 3.8 MG/DL (0.55-1.30); SODIUM 134 MMOL/L (136-145)
--- NOTE | 2018-11-07 07:06 | NUR ---
HAND-OFF: Report given to Nevaeh SWAIN, pt. remains stable and no distress noted.
--- NOTE | 2018-11-07 07:07 | NUR ---
NURSE NOTES: Received patient in bed. On nasal cannula at 4LPM. On continuous GTF. For HD today. Contact isolation observed.
[2018-11-07] MEDS: Fluconazole 100mg tab GT SCH (09:42)
[2018-11-07] MEDS: Vitamin D 1000 IU Tab GT SCH (09:42)
[2018-11-07] MEDS: Nephrovite tab (Rena-Vite) GT SCH (09:42)
[2018-11-07] MEDS: Acyclovir 200mg Cap GT SCH ×2 (09:42→21:11)
[2018-11-07] MEDS: Minoxidil 2.5mg tab GT SCH ×2 (09:43→21:12)
[2018-11-07] MEDS: Sucralfate 1gm tab GT SCH ×4 (09:43→21:11)
--- NOTE | 2018-11-07 15:15 | GI Progress Note ---
Assessment/Plan Problems: (1) Gastrostomy tube dependent ICD Codes: Z93.1 - Gastrostomy status SNOMED: 943653225, 904868882 (2) Vomiting ICD Codes: R11.10 - Vomiting, unspecified SNOMED: 880137177 (3) Fecal impaction ICD Codes: K56.41 - Fecal impaction SNOMED: 84851267 (4) Anemia ICD Codes: D64.9 - Anemia, unspecified SNOMED: 038588170 Qualifiers: Qualified Codes: D64.9 - Anemia, unspecified (5) Malfunction of gastrostomy tube ICD Codes: K94.23 - Gastrostomy malfunction SNOMED: 292802401 (6) Hematemesis ICD Codes: K92.0 - Hematemesis SNOMED: 4646478 Status: stable, unchanged Status Narrative Discussed with Dr. Taylor. Assessment/Plan FINDINGS: 1. Large esophageal ulceration, active bleeding, most probably the source of bleeding. 2. Hiatal hernia. 3. Gastritis. 4. Duodenitis. 5. Two colonic polyps removed. 6. Internal hemorrhoid Recommendations G-tube changed at bedside today ppi and Carafate reflux measures fu biopsy results GTFs per RD prn blood transfusion fu labs dc planning The patient was seen and examined at bedside and all new and available data was reviewed in the patients chart. I agree with the above findings, impression and plan. (Patient seen earlier today. Signature stamp does not reflect patient encounter time.). - Hilton Taylor MD Subjective Subjective Limited Objective Last 24 Hour Vital Signs Date Time Temp Pulse Resp B/P (MAP) Pulse Ox O2 Delivery O2 Flow Rate FiO2 11/07/18 12:01 85 11/07/18 12:00 Nasal Cannula 4.0 11/07/18 12:00 97.3 72 18 132/62 (85) 99 11/07/18 09:43 138/61 11/07/18 09:00 75 138/61 11/07/18 08:00 Nasal Cannula 4.0 11/07/18 08:00 97.2 75 22 138/61 (86) 100 11/07/18 07:54 68 11/07/18 04:00 Nasal Cannula 4.0 11/07/18 04:00 63 11/07/18 04:00 97.5 67 20 127/58 (81) 99 11/07/18 00:00 97.5 66 20 122/68 (86) 95 11/07/18 00:00 Nasal Cannula 4.0 11/07/18 00:00 78 11/06/18 20:14 Nasal Cannula 4.0 36 11/06/18 20:14 98 Nasal Cannula 4.0 36 11/06/18 20:12 134/67 11/06/18 20:00 Nasal Cannula 4.0 11/06/18 20:00 71 11/06/18 20:00 97.4 71 20 134/67 (89) 97 11/06/18 16:00 Nasal Cannula 4.0 11/06/18 15:37 70 Intake and Output 11/06/18 11/07/18 19:00 07:00 Intake Total 80 ml 450 ml Balance 80 ml 450 ml Free Water 50 ml Tube Feeding 80 ml 400 ml # Bowel Movements 1 Laboratory Tests Test 11/07/18 03:00 White Blood Count 8.7 K/UL (4.8-10.8) Red Blood Count 3.72 M/UL (4.20-5.40) L Hemoglobin 11.1 G/DL (12.0-16.0) L Hematocrit 34.3 % (37.0-47.0) L Mean Corpuscular Volume 92 FL (80-99) Mean Corpuscular Hemoglobin 29.8 PG (27.0-31.0) Mean Corpuscular Hemoglobin Concent 32.4 G/DL (32.0-36.0) Red Cell Distribution Width 17.2 % (11.6-14.8) H Platelet Count 189 K/UL (150-450) Mean Platelet Volume 5.4 FL (6.5-10.1) L Neutrophils (%) (Auto) % (45.0-75.0) Lymphocytes (%) (Auto) % (20.0-45.0) Monocytes (%) (Auto) % (1.0-10.0) Eosinophils (%) (Auto) % (0.0-3.0) Basophils (%) (Auto) % (0.0-2.0) Differential Total Cells Counted 100 Neutrophils % (Manual) 80 % (45-75) H Lymphocytes % (Manual) 8 % (20-45) L Monocytes % (Manual) 3 % (1-10) Eosinophils % (Manual) 2 % (0-3) Basophils % (Manual) 0 % (0-2) Band Neutrophils 7 % (0-8) Platelet Estimate Adequate Platelet Morphology Normal Anisocytosis 1+ Sodium Level 134 MMOL/L (136-145) L Potassium Level 4.0 MMOL/L (3.5-5.1) Chloride Level 98 MMOL/L (98-107) Carbon Dioxide Level 25 MMOL/L (21-32) Anion Gap 11 mmol/L (5-15) Blood Urea Nitrogen 60 mg/dL (7-18) H Creatinine 3.8 MG/DL (0.55-1.30) H Estimat Glomerular Filtration Rate mL/min (>60) Glucose Level 176 MG/DL (74-106) H Calcium Level 8.2 MG/DL (8.5-10.1) L Height (Feet): 5 Height (Inches): 5.00 Weight (Pounds): 127 General Appearance: WD/WN, no apparent distress, alert Cardiovascular: normal rate Respiratory/Chest: normal breath sounds, no respiratory distress Abdominal Exam: normal bowel sounds, non tender, soft, GT site Extremities: non-tender Janene Ellis NP Nov 07, 2018 15:15
--- NOTE | 2018-11-07 15:23 | Nephrology Progress Note ---
Assessment/Plan Plan Worsening Anemia. ESRD HD MWF+ HD Patient has no family, no DPOA. SOB - see orders. CXR CHF. s/p Endoscopies - Large Esophageal Ulcer R/O Chrystal Esophagitis. Patient with recurrent and severe oral thrush. ID on the case. m/p this is the origin of the GI bleed. (Colonoscopy -polyps. Biopsied). Couldn't dialyze patient due to hematoma Lt. upper arm. Needs a PermCath. Patient has no family or DPOA. PermCath is urgent to maintain life! Has New PermCath. DC to [facility]! Subjective Subjective Confused Objective Objective Last 24 Hour Vital Signs Date Time Temp Pulse Resp B/P (MAP) Pulse Ox O2 Delivery O2 Flow Rate FiO2 11/07/18 12:01 85 11/07/18 12:00 Nasal Cannula 4.0 11/07/18 12:00 97.3 72 18 132/62 (85) 99 11/07/18 09:43 138/61 11/07/18 09:00 75 138/61 11/07/18 08:00 Nasal Cannula 4.0 11/07/18 08:00 97.2 75 22 138/61 (86) 100 11/07/18 07:54 68 11/07/18 04:00 Nasal Cannula 4.0 11/07/18 04:00 63 11/07/18 04:00 97.5 67 20 127/58 (81) 99 11/07/18 00:00 97.5 66 20 122/68 (86) 95 11/07/18 00:00 Nasal Cannula 4.0 11/07/18 00:00 78 11/06/18 20:14 Nasal Cannula 4.0 36 11/06/18 20:14 98 Nasal Cannula 4.0 36 11/06/18 20:12 134/67 11/06/18 20:00 Nasal Cannula 4.0 11/06/18 20:00 71 11/06/18 20:00 97.4 71 20 134/67 (89) 97 11/06/18 16:00 Nasal Cannula 4.0 11/06/18 15:37 70 Intake and Output 11/06/18 11/07/18 19:00 07:00 Intake Total 80 ml 450 ml Balance 80 ml 450 ml Free Water 50 ml Tube Feeding 80 ml 400 ml # Bowel Movements 1 Laboratory Tests 11/07/18 03:00: White Blood Count 8.7, Red Blood Count 3.72L, Hemoglobin 11.1L, Hematocrit 34.3L , Mean Corpuscular Volume 92, Mean Corpuscular Hemoglobin 29.8, Mean Corpuscular Hemoglobin Concent 32.4, Red Cell Distribution Width 17.2H, Platelet Count 189, Mean Platelet Volume 5.4L, Neutrophils (%) (Auto) , Lymphocytes (%) (Auto) , Monocytes (%) (Auto) , Eosinophils (%) (Auto) , Basophils (%) (Auto) , Differential Total Cells Counted 100, Neutrophils % ( Manual) 80H, Lymphocytes % (Manual) 8L, Monocytes % (Manual) 3, Eosinophils % ( Manual) 2, Basophils % (Manual) 0, Band Neutrophils 7, Platelet Estimate Adequate, Platelet Morphology Normal, Anisocytosis 1+, Sodium Level 134L, Potassium Level 4.0, Chloride Level 98, Carbon Dioxide Level 25, Anion Gap 11, Blood Urea Nitrogen 60H, Creatinine 3.8H, Estimat Glomerular Filtration Rate , Glucose Level 176H, Calcium Level 8.2L Height (Feet): 5 Height (Inches): 5.00 Weight (Pounds): 127 Objective CV RR Cachechtic Lungs B wheezes Abd SNT. BS + PEG. E M. wasting. GIANNI AVF infiltrated with hematoma. Has a new Zaid. Raul Cannon MD Nov 07, 2018 15:22
--- NOTE | 2018-11-07 16:32 | NUR ---
NURSE NOTES: Telephone report given to WILIAM Quezada of [facility]. Patient is going to room 230 bed B.
--- NOTE | 2018-11-07 19:34 | NUR ---
HAND-OFF: Report given to Bertha Macias RN.
[2018-11-07] MEDS: Miralax 17gm pkt GT SCH (21:00)
[2018-11-07] MEDS: Epoetin Alfa-EPBX(ESRD on dialysis)10,000 unit/ml vial SUBQ SCH (21:11)
--- NOTE | 2018-11-07 22:35 | NUR ---
NURSE NOTES: Pt picked up by [facility]. Report given to ambulance personnel. IV removed. VSS. Pt in no acute respiratory or cardiac distress. GT clamped. Report given to Alexia by Nevaeh. Pt to be taken to room 230-B.
--- NOTE | 2018-11-08 12:14 | Discharge Summary ---
Discharge Summary Discharge Summary _ DATE OF ADMISSION: 10/24/2018 DATE OF DISCHARGE: 11/07/2018 DISCHARGED BY: Dr. Cannon REASON FOR ADMISSION: 73 years old female with past medical history of hypertension, diabetes mellitus , end-stage renal disease on hemodialysis, anemia, schizophrenia, was brought to emergency room for evaluation. Apparently during hemodialysis patient removed two needles from AV fistula and started to have bleeding from the fistula site. Upon evaluation vital signs were stable. Laboratory workup revealed hemoglobin 8.8, hematocrit 27.7. BUN and creatinine elevated consistent, with known history of end-stage renal disease. Patient was admitted for further management CONSULTANTS: ID specialist Dr. Lewis GI specialist Dr. Taylor vascular surgery [facility]: Patient admitted to monitored floor. Hematology and vascular surgery consult were requested. Vascular surgeon seen and evaluated patient . Patient demonstrated AV shunt hematoma , unable to use it for renal dialysis. Patient undergone placement of non-tunneled hemodialysis catheter via right femoral vein by radiology. Patient started on hemodialysis with close monitoring of volumes, renal parameters and electrolytes. Subsequently Zaid catheter was exchanged to Perma-catheter on 11/06 by radiology. Vascular surgeon recommended to rest IV fistula for 4 weeks until hematoma resolves and continue hemodialysis via right Perma-cath. Afterwards patient will need left arm fistulogram. Left upper extremity venous duplex revealed partial thrombus at the proximal arterio-venous fistula at the upper arm level. Hematoma measuring 1.6 cm x 2.7 cm was noted at the adjacent to the upper mid upper arm arterio-venous fistula. There was no evidence of occlusion in the arterio-venous fistula. Arterial duplex revealed a no evidence of occlusion in arteriovenous fistula. Moderate stenosis noted in mild brachial artery and mild to stenosis at the subclavian and axillary arteries. Hemoglobin hematocrit were closely monitored with goal to keep hemoglobin above 7. Patient started on Epogen and intravenous iron. Patient undergone transfusion of total of 4 units of packed red blood cells , and prior to discharge hemoglobin 9.1 ,hematocrit 27.8. Stool for occult blood was positive. On prior admission, in June 2018 ,baseline hemoglobin was above 10, while at this admission hemoglobin was 8.8. There was unknown history of prior endoscopy and colonoscopy. GI specialist followed. Patient undergone upper endoscopy with biopsy and colonoscopy with biopsy . Findings revealed esophageal large ulceration with active bleeding, most probably source of bleeding, hiatal hernia, gastritis, duodenitis,two colonic polyps, status post removal, internal hemorrhoids. Patient was started on PPI twice a day. Biopsy of stomach antrum revealed mild to moderate chronic gastritis ,but was negative for Helicobacter infection. Esophageal ulcer edge biopsy revealed moderate chronic active carditis , but was negative for intestinal metaplasia or dysplasia or malignancy. It was also negative for Helicobacter infection. Ascending and cecum polyp biopsy revealed fragments of tubular adenoma. After procedure patient was slowly started on tube feedings with strict aspiration and reflux precaution. Due to malfunctioning of G-tube, it was changed at the bedside. G-tube feeding rate was increased to goal rate as tolerated , as per registered dietitian recommendation. Bowel regimen instituted. Per behavioral science chair assessment, patient was at high nutrition risk. Nutritional recommendation regarding protein supplements were implemented in patients diet. Infectious disease specialist followed . Patient had mouth ulcers , severe, recurrent, and oral thrush . Patient started on fluconazole and acyclovir. Serology for cytomegalovirus was negative. Blood pressure was managed with calcium channel sima and remained stable. Blood sugar was managed with sliding scale of insulin on as needed basis. Levothyroxine was continued. Supportive care provided. Of note, patient had no DPOA or family. It was recommended at SNF to initiate work for DPOA for further management . Patient clinically stabilized and was ready for transfer back to [facility] for continuation of care. FINAL DIAGNOSES: Hemorrhage of arteriovenous fistula with acute blood loss anemia, requiring blood transfusion End-stage renal disease , on hemodialysis Left arm AV shunt hematoma due to self needle removal during hemodialysis Left arm AV shunt stenosis (with pulsatile thrill and ecchymosis) Status post 2 / placement of Azid right femoral hemodialysis catheter (by radiology) Status post 2 placement of Perma catheter , right femoral hemodialysis catheter (by radiology) Type 2 diabetes mellitus Hypertension Hypothyroidism Schizophrenia status post EGD and colonoscopy 2/ Large esophageal ulceration with active bleeding , rule out Chrystal esophagitis Hiatal hernia Gastritis Duodenitis Two colonic polyp,status post removal Dysphagia, G-tube Malfunction of the G tube , status psot replacement at bedside Cachexia with high nutritional risk Schizophrenia Mouth ulcers, recurrent , severe Oral thrush DISCHARGE MEDICATIONS: See Medication Reconciliation list. DISCHARGE INSTRUCTIONS: Patient was discharged to the [facility]. Follow up with medical doctor at the facility. I have been assigned to dictate discharge summary for this account. I was not involved in the patient's management. Inocencia Lowry NP Nov 08, 2018 12:14
[2019-01-30] MEDS ORDERED: METOCLOPRA10 MG/10 M GT (18:56)
== END 2018-11-07 22:50 | DRG 314 ==
LOC: EDBD 15:01 → EMR 15:20 → 4E 16:22 → EDBEDREQ 16:50 → 4E 18:10 → 2W 10-31 17:20
PROC: 5A1D70Z Performance of Urinary Filtration, Intermittent, Less than 6 Hours Per Day (ICD-10-PCS; principal; 2018-10-26)
PROC: 0DBK8ZX Excision of Ascending Colon, Via Natural or Artificial Opening Endoscopic, Diagnostic (ICD-10-PCS; 2018-10-31 09:33)
PROC: 0DBH8ZX Excision of Cecum, Via Natural or Artificial Opening Endoscopic, Diagnostic (ICD-10-PCS; 2018-10-31 09:33)
PROC: 0DB78ZX Excision of Stomach, Pylorus, Via Natural or Artificial Opening Endoscopic, Diagnostic (ICD-10-PCS; 2018-10-31 09:33)
PROC: 0DB58ZX Excision of Esophagus, Via Natural or Artificial Opening Endoscopic, Diagnostic (ICD-10-PCS; 2018-10-31 09:33)
PROC: B51BZZA Fluoroscopy of Right Lower Extremity Veins, Guidance (ICD-10-PCS; 2018-11-03)
PROC: 06HM33Z Insertion of Infusion Device into Right Femoral Vein, Percutaneous Approach (ICD-10-PCS; 2018-11-03)
PROC: 0JHN3XZ Insertion of Tunneled Vascular Access Device into Right Lower Leg Subcutaneous Tissue and Fascia, Percutaneous Approach (ICD-10-PCS; 2018-11-06)
PROC: B51BZZA Fluoroscopy of Right Lower Extremity Veins, Guidance (ICD-10-PCS; 2018-11-06)
PROC: 06HM33Z Insertion of Infusion Device into Right Femoral Vein, Percutaneous Approach (ICD-10-PCS; 2018-11-06)
DX: T82.838A Hemorrhage due to vascular prosthetic devices, implants and grafts, initial encounter (principal); N18.6 End stage renal disease; K22.11 Ulcer of esophagus with bleeding; I12.0 Hypertensive chronic kidney disease with stage 5 chronic kidney disease or end stage renal disease; D62 Acute posthemorrhagic anemia; B37.0 Candidal stomatitis; K94.23 Gastrostomy malfunction; R64 Cachexia; Z99.2 Dependence on renal dialysis; T82.858A Stenosis of other vascular prosthetic devices, implants and grafts, initial encounter; F20.9 Schizophrenia, unspecified; E11.9 Type 2 diabetes mellitus without complications; E03.9 Hypothyroidism, unspecified; E11.22 Type 2 diabetes mellitus with diabetic chronic kidney disease; R13.10 Dysphagia, unspecified; Z68.21 Body mass index [BMI] 21.0-21.9, adult; K64.8 Other hemorrhoids; K44.9 Diaphragmatic hernia without obstruction or gangrene; K29.60 Other gastritis without bleeding; K29.80 Duodenitis without bleeding; K63.5 Polyp of colon; K56.41 Fecal impaction
CPT/HCPCS: 36415; 36569; 36600; 71045; 76000; 76937; 80048; 80053; 82270; 82803; 82962; 84100; 85007; 85025; 85610; 85730; 86850; 86900; 86901; 86920; 87081; 87497; 93926; 93971; 94003; 94150; 94640; 94664; 94760; 99285; J1815; J2765; J7620

== ENCOUNTER 2019-01-29 17:40 | Inpatient (IN) | payer MEDICARE, OTHER ==
[~2019-01-29] VITALS: Ht 167.6 cm; Wt 55.8 kg
[~2019-01-29 17:40] MED LIST changes: +CARAFATE1 G1 ORAL; +LANSOPRAZOLE30 MG GT
--- NOTE | 2019-01-29 17:50 | NUR ---
ED Nurse Note: patient brought in by [facility] from [facility] for gtube replacement. patient was at the dialysis center today and gtube started to leak from the site. patient has HD scheduled TTHS, patient completed her dialysis today.
--- NOTE | 2019-01-29 18:02 | NUR ---
ED Nurse Note: Called [facility] and spoke with Berna SWAIN that patient's primary doctor Dr. Quintero gave order to transfer the patient to replace gtube because it was leaking from the gtube site today.
--- NOTE | 2019-01-29 18:05 | NUR ---
ED Nurse Note: patient's gtube site assessed, no leaking noted at this time. minimal redness noted. applied dressing around the gtube site.
--- NOTE | 2019-01-29 18:40 | NUR ---
ED Nurse Note: blood sent to lab
[2019-01-29 18:42] VITALS: BP 174/62
--- NOTE | 2019-01-29 18:49 | NUR ---
ED Nurse Note: notified Dr. Brewer regarding patient being HD patient and per Berna RN at [facility], patient is oliguric. Dr. Brewer said it's ok for no urine sample.
--- NOTE | 2019-01-29 19:05 | NUR ---
HAND-OFF: Report given to Marleni Peters RN. endorsed that picture for sacral area wound needs to be taken if patient's getting admitted.
--- NOTE | 2019-01-29 19:05 | Emergency Room Report ---
History of Present Illness General Chief Complaint: Malfunctioning Gastric Tube Source: Medical Record, EMS Present Illness HPI This patient is brought in from a care home facility. The patient is nonverbal at baseline. Patient presents because the staff at the residential report that the G-tube site is leaking around the G-tube. There are no other complaints. There is no other history of present illness available. Patient has a history of end-stage renal disease and is dialysis dependent. She has type 2 diabetes. She has a history of congestive heart failure. She is PEG tube dependent. 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 Hx Weakness: Yes Review of Systems All Other Systems: negative except mentioned in HPI Physical Exam Vital Signs Date Time Temp Pulse Resp B/P (MAP) Pulse Ox O2 Delivery O2 Flow Rate FiO2 01/29/19 17:44 96.6 74 20 92 Room Air 01/29/19 18:42 174/62 Sp02 EP Interpretation: reviewed, normal General Appearance: no apparent distress, alert, GCS 15, non-toxic Head: normocephalic, atraumatic Eyes: bilateral eye normal inspection, bilateral eye PERRL ENT: no angioedema Neck: normal inspection Respiratory: chest non-tender, lungs clear, normal breath sounds, no respiratory distress, no retraction, no accessory muscle use, speaking full sentences Cardiovascular #1: regular rate, rhythm, no edema Gastrointestinal: normal bowel sounds, non tender, soft, non-distended, no guarding, no rebound, other - G-tube in place. Skin of abdomen with excoriations c/w scratching Rectal: deferred Musculoskeletal: other - No obvious abnl Neurologic: alert, responsive, grossly normal - At baseline Psychiatric: mood/affect normal Skin: warm/dry, well hydrated, other - See RN skin exam Medical Decision Making Diagnostic Impression: Primary Impression: Malfunction of percutaneous endoscopic gastrostomy (PEG) tube ER Course This patient presents with malfunction of her G-tube. The G-tube is in place. The tube is not dislodged. There is no obvious leaking at this time. However, she is not undergoing feeding at this time. The patient will be admitted for further evaluation by gastroenterology and by her primary care physician Dr. Hudson. Laboratory Tests Test 01/29/19 18:34 White Blood Count 6.4 K/UL (4.8-10.8) Red Blood Count 3.64 M/UL (4.20-5.40) L Hemoglobin 11.4 G/DL (12.0-16.0) L Hematocrit 35.1 % (37.0-47.0) L Mean Corpuscular Volume 97 FL (80-99) Mean Corpuscular Hemoglobin 31.4 PG (27.0-31.0) H Mean Corpuscular Hemoglobin Concent 32.5 G/DL (32.0-36.0) Red Cell Distribution Width 15.8 % (11.6-14.8) H Platelet Count 219 K/UL (150-450) Mean Platelet Volume 4.5 FL (6.5-10.1) L Neutrophils (%) (Auto) 73.7 % (45.0-75.0) Lymphocytes (%) (Auto) 9.1 % (20.0-45.0) L Monocytes (%) (Auto) 8.1 % (1.0-10.0) Eosinophils (%) (Auto) 8.0 % (0.0-3.0) H Basophils (%) (Auto) 1.1 % (0.0-2.0) Sodium Level Pending Potassium Level Pending Chloride Level Pending Carbon Dioxide Level Pending Blood Urea Nitrogen Pending Creatinine Pending Estimate Glomerular Filtration Rate Pending Glucose Level Pending Lactic Acid Level Pending Calcium Level Pending Total Bilirubin Pending Aspartate Amino Transferase (AST) Pending Alanine Aminotransferase (ALT) Pending Alkaline Phosphatase Pending Total Creatine Kinase Pending Creatine Kinase MB Pending Troponin I Pending Total Protein Pending Albumin Pending Globulin Pending Last Vital Signs Date Time Temp Pulse Resp B/P (MAP) Pulse Ox O2 Delivery O2 Flow Rate FiO2 01/29/19 18:42 96.6 74 20 174/62 98 Room Air Disposition: ADMITTED INPATIENT Condition: Stable Referrals: Raul Cannon MD (PCP) Halle Brewer DO January 29, 2019 19:05
[2019-01-29 19:10] LABS: BASOPHILS % (AUTO) 1.1 % (0.0-2.0); HEMATOCRIT 35.1 % (37.0-47.0); HEMOGLOBIN 11.4 G/DL (12.0-16.0); LYMPHOCYTES % (AUTO) 9.1 % (20.0-45.0); MEAN CORPUSCULAR VOLUME 97 FL (80-99); MONOCYTES % (AUTO) 8.1 % (1.0-10.0); NEUTROPHILS % (AUTO) 73.7 % (45.0-75.0); PLATELET COUNT 219 K/UL (150-450); RED BLOOD COUNT 3.64 M/UL (4.20-5.40); RED CELL DISTRIBUTION WIDTH 15.8 % (11.6-14.8); WHITE BLOOD COUNT 6.4 K/UL (4.8-10.8)
[2019-01-29 19:40] LABS: ANION GAP 7 mmol/L (5-15); BLOOD UREA NITROGEN 15 mg/dL (7-18); CALCIUM 9.4 MG/DL (8.5-10.1); CARBON DIOXIDE 29 MMOL/L (21-32); CHLORIDE 101 MMOL/L (98-107); CREATININE 1.2 MG/DL (0.55-1.30); POTASSIUM 3.4 MMOL/L (3.5-5.1); SODIUM 137 MMOL/L (136-145)
[2019-01-29 20:05] LABS: ALANINE AMINOTRANSFERASE 17 U/L (12-78); ALBUMIN 3.2 G/DL (3.4-5.0); ALBUMIN/GLOBULIN RATIO 0.6 (1.0-2.7); ALKALINE PHOSPHATASE 118 U/L (46-116); ASPARTATE AMINO TRANSFERASE 19 U/L (15-37); BILIRUBIN,TOTAL 1.1 MG/DL (0.2-1.0); CKMB 7.1 NG/ML (0.0-3.6); CREATINE KINASE 78 U/L (26-308)
[2019-01-29 20:12] LABS: BILIRUBIN,DIRECT 0.2 MG/DL (0.0-0.3)
[2019-01-29 20:28] VITALS: BP 130/88
--- NOTE | 2019-01-29 21:07 | NUR ---
ER Nurse Note: Pt a&ox3 to name, date, situation. Pt VSS, no signs of distress. Pt able to follow directions. G-tube in right mid abd, clamped. SLIV RT AC, patent. Redness to abd and sacral noted; skin intact. No belongings. Report given to WILIAM Stephens in [place] for continuity of care. Addendum: 01/29/19 at 2149 by EDDA ER Nurse Note: Urine not sent; HARMAN aware. Per HARMAN, she stated pt is on dialysis and does not need urine. Endorsed to received nurse.
--- NOTE | 2019-01-29 21:15 | NUR ---
NURSE NOTES: Pt is admitted from ER in stable condition, no acute distress noted. Pt is on 2L n/c. Report received from [facility]. Pt admitted with G-tube malfunction under Dr. Quintero. Pt was observed scratching abdomen and there are some scratch [place]. Pt has sacral redness. Pt was oriented to unit. Board updated. Pt has no belongings. Bed locked low in position,side rails up and call light within reach. Bed alarm on. HOB elevated. Dr. Quintero paged for admitting orders. Pt will be monitored.
[2019-01-29 21:30] VITALS: BP 150/84
--- NOTE | 2019-01-29 21:58 | NUR ---
NURSE NOTES: Dr. verde called back and ordered resume all home meds and continue G-tube feeding. Berna at [facility] contacted, per Berna pt refused flu and PNA vaccine.
[2019-01-29] MEDS ORDERED: Metoclopramide 10mg/2ml Inj IVP PRN (22:00)
[2019-01-29] MEDS ORDERED: Acetaminophen 500mg (ES) tab ORAL PRN (22:00)
[2019-01-29] MEDS ORDERED: Albuterol/Ipratropium 3ml neb HHN PRN (22:30)
[2019-01-30] VITALS: BP 145/78
[2019-01-30] MEDS: LORazepam 1mg tab GT PRN (00:07)
--- NOTE | 2019-01-30 01:00 | NUR ---
NURSE NOTES: Pt was turned q2hrs at least. Pt was cleaned and sacral dressing applied, wound picture taken. G-tube feeding resumed . Abdominal binder applied to secure the G-tube.
[2019-01-30 04:00] VITALS: BP 153/72
--- NOTE | 2019-01-30 06:00 | NUR ---
NURSE NOTES: G-tube feeding paused and should be resumed at 0800.
[2019-01-30] MEDS: Sucralfate 1gm tab ORAL SCH ×4 (06:26→20:54)
[2019-01-30] MEDS: NovoLOG Insulin Flexpen SUBQ SCH ×4 (06:27→20:58)
--- NOTE | 2019-01-30 07:20 | NUR ---
HAND-OFF: Report given to Vlad Colmenares RN. Informed to resume G-tube feeding at 0800 am.
[2019-01-30 08:00] VITALS: BP 133/56
--- NOTE | 2019-01-30 08:05 | NUR ---
NURSE NOTES: pt in bed with no sob nor in any form of distress noted. off the feeding for limited hr. no aspiration noted. HOB elevated. bed in lowest position. call light within reach at all time. will continue to monitor
[2019-01-30] MEDS: Nephrovite tab (Rena-Vite) GT SCH (09:02)
[2019-01-30] MEDS: Vitamin D 1000 IU Tab GT SCH (09:02)
[2019-01-30] MEDS: Minoxidil 2.5mg tab GT SCH ×2 (09:03→17:31)
[2019-01-30] MEDS: Heparin 5000 units/ml inj SUBQ SCH ×2 (09:05→20:56)
--- NOTE | 2019-01-30 10:28 | General Progress Note ---
Subjective Allergies: Coded Allergies: No Known Allergies (Unverified , 05/11/18) Subjective see full dictation GT changed at the bedside Objective Last 24 Hour Vital Signs Date Time Temp Pulse Resp B/P (MAP) Pulse Ox O2 Delivery O2 Flow Rate FiO2 01/30/19 09:03 133/56 01/30/19 09:03 67 133/56 01/30/19 09:00 Room Air 01/30/19 08:00 97.2 67 19 133/56 (81) 100 01/30/19 04:00 97.7 78 20 153/72 (99) 100 01/30/19 00:00 97.5 83 18 145/78 (100) 94 01/29/19 21:35 Nasal Cannula 2.0 01/29/19 21:30 98.1 18 150/84 (106) 94 01/29/19 21:10 98.6 74 18 130/88 98 Room Air 01/29/19 20:28 98.6 74 18 130/88 98 Room Air 01/29/19 18:42 96.6 74 20 174/62 98 Room Air 01/29/19 17:44 96.6 74 20 92 Room Air Intake and Output 01/29/19 01/30/19 19:00 07:00 Intake Total 2010 ml Output Total 0 ml Balance 0 ml 2010 ml Intake Free Water 200 ml IV Total 1600 ml Tube Feeding 210 ml Output Urine Total 0 ml # Voids 1 Laboratory Tests 01/29/19 18:34: White Blood Count 6.4, Red Blood Count 3.64L, Hemoglobin 11.4L, Hematocrit 35.1L , Mean Corpuscular Volume 97, Mean Corpuscular Hemoglobin 31.4H, Mean Corpuscular Hemoglobin Concent 32.5, Red Cell Distribution Width 15.8H, Platelet Count 219, Mean Platelet Volume 4.5L, Neutrophils (%) (Auto) 73.7, Lymphocytes (%) (Auto) 9.1L, Monocytes (%) (Auto) 8.1, Eosinophils (%) (Auto) 8.0H, Basophils (%) (Auto) 1.1, Sodium Level 137, Potassium Level 3.4L, Chloride Level 101, Carbon Dioxide Level 29, Anion Gap 7, Blood Urea Nitrogen 15 , Creatinine 1.2, Estimat Glomerular Filtration Rate , Glucose Level 96, Lactic Acid Level 0.80, Calcium Level 9.4, Total Bilirubin 1.1H, Direct Bilirubin 0.2, Aspartate Amino Transf (AST/SGOT) 19, Alanine Aminotransferase (ALT/SGPT) 17, Alkaline Phosphatase 118H, Total Creatine Kinase 78, Creatine Kinase MB 7.1H, Creatine Kinase MB Relative Index 9.1, Troponin I 0.056, Total Protein 8.9H, Albumin 3.2L, Globulin 5.7, Albumin/Globulin Ratio 0.6L Height (Feet): 5 Height (Inches): 6.00 Weight (Pounds): 114 Hilton Taylor MD January 30, 2019 10:27
--- NOTE | 2019-01-30 11:44 | NUR ---
RD ASSESSMENT & RECOMMENDATIONS SEE CARE ACTIVITY FOR COMPLETE ASSESSMENT DAILY ESTIMATED NEEDS: Needs based on ESRD/ HD / 51.8kg 30-35 kcals/kg 2111-5737 total kcals 1.2-1.8 g protein/kg 62-93 g total protein Fluid per MD, on HD NUTRITION DIAGNOSIS: * Swallowing difficulty R/T dysphagia, 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 * Increased kcal/prot needs R/T renal dysfunction, ESRD as evidenced by pt on HD. ENTERAL NUTRITION RECOMMENDATIONS: Nepro @ 50ml/hr x 20 hrs to provide 1000ml, 1800kcal, 81g prot, 727ml free water. * Maintain current TF as tolerated to meet 100% est needs * HOB over 30 degrees/ water flush per MD ADDITIONAL RECOMMENDATIONS: * RECALIBRATE BED SCALE for accurate current body weight EMR wt: 114#, Bed scale wt: 123#, previous am wt: 106# * Obtain dry wt post HD * F/UP w/ WC eval for sacral redness . .
[2019-01-30 12:00] VITALS: BP 147/69
[2019-01-30] MEDS ORDERED: Sterile Water Irrig 1000ml IRRIG ONE (13:54)
--- NOTE | 2019-01-30 14:30 | NUR ---
P.T NOTE: P.T evaluation completed. Based on P.T evaluation, pt not a candidate for skilled P.T services as pt is already at baseline Dependent/MAX A for all aspects of ADL/functional mobilities. Recommend return to SNF for comfort and care. Thank you for this referral.
--- NOTE | 2019-01-30 15:09 | NUR ---
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
--- NOTE | 2019-01-30 15:43 | NUR ---
NURSE NOTES:WOUND CARE NOTES:Pt presented on admission with scattered senile purpuras both upper ext. Maroon discoloration that is indurated at base of wound .Marginal erythema . Periwound is pink and blanchable. (L)9cm x (W)6cm. Both heels are Boggy with non-blanchable erythema.. No other areas of skin concerns noted. Tx.Plan: Apply Triad Paste to Sacrum. Cover with Optifoam drsg. Change every 3 days and prn. Apply Cavilon Skin Barrier to R and L heels. Cover each heel with Optifoam Drsg. Change every 7 days and prn. Reposition at least every 2hours or as tolerated. APM/JEREMY Mattress Overlay. Off-load heels with pillow.
[2019-01-30 16:00] VITALS: BP 154/69
--- NOTE | 2019-01-30 17:15 | Consultation ---
DATE OF CONSULTATION: 01/30/2019 GASTROENTEROLOGY CONSULTATION CONSULTING PHYSICIAN: Hilton Taylor M.D. REFERRING PHYSICIAN: Raul Cannon M.D. CHIEF COMPLAINT: Malfunctioning G-tube. HISTORY OF PRESENT ILLNESS: Most of history is per chart. This is a 73-year-old patient, known to me. She has multiple medical problems, which would I dictate in a second. She came to the hospital mainly because of malfunctioning G-tube. PAST MEDICAL HISTORY: 1. History of end-stage renal disease, on hemodialysis. 2. Type 2 diabetes. 3. Hypertension. 4. Organic brain syndrome. 5. Schizophrenia. 6. Hypothyroidism. ALLERGIES: No known drug allergies. MEDICATIONS: Please see medication reconciliation list. SOCIAL HISTORY: Currently, lives in a usp. No recent history of tobacco, alcohol, or drug abuse. FAMILY HISTORY: Noncontributory. REVIEW OF SYSTEMS: Limited. PHYSICAL EXAMINATION: VITAL SIGNS: Temperature is 97.2, pulse 67, respirations 19, blood pressure is 132/56. HEENT: Normocephalic, atraumatic. Sclerae anicteric. NECK: Supple. No evidence of lymphadenopathy. CARDIOVASCULAR: Regular rate and rhythm. Plus S1 and S2. No obvious murmur. LUNGS: Clear to auscultation bilaterally. ABDOMEN: Positive bowel sounds. Soft, nontender. G-tube in place. Actually, G-tube is very shortened and it seemed there is no balloon to hold the tube and it did came out of the hole, and this most probably was leaking. EXTREMITIES: No cyanosis, no clubbing, no edema. LABORATORY DATA: White count is 6.4, hemoglobin is 11.4, hematocrit is 35, platelet count is 219,000. ASSESSMENT AND PLAN: This is a 73-year-old female with malfunctioning G-tube. As I mentioned, the G-tube had no balloon and no anything to hold inside, so we removed that tube and we replaced that with an 18-Australian balloon-type of G-tube. The balloon was inflated and the G-tube was secured in place. We flushed it, it was flushing perfectly, so we started tube feeding. Plan will be to resume tube feeding, G-tube flush, monitor for labs, discharge planning per primary team. I want to thank Dr. Cannon for this kind referral. Hiltonpatrick Taylor M.D. DR: SAGAR JOB#: [id number] CC: Raul Cannon M.D.; Fax#: [phone]
[2019-01-30] MEDS ORDERED: DUONEB 0.5-3(2.53 ML HHN (18:56)
[2019-01-30] MEDS ORDERED: ATIVAN1 MG GT (18:56)
[2019-01-30] MEDS ORDERED: METOCLOPRA10 MG/10 M ORAL (18:56)
[2019-01-30] MEDS ORDERED: ZINC OXIDE56.7 G1 TP (18:56)
[2019-01-30] MEDS ORDERED: CARAFATE SUSP UD1 G1 GT (18:56)
[2019-01-30] MEDS ORDERED: ACETAMINOP160 MG/54 ORAL (18:56)
[2019-01-30] MEDS ORDERED: TRIPLE ANTIBIO1 EAC1 TP (18:56)
[2019-01-30] MEDS ORDERED: LORAZEPAM0.5 MG GT (18:56)
--- NOTE | 2019-01-30 19:20 | NUR ---
HAND-OFF: Report given to WILIAM Pineda.
[2019-01-30 20:10] VITALS: BP 152/69
--- NOTE | 2019-01-30 20:30 | NUR ---
NURSE NOTES: Patient in bed, nonverbal, opens eyes to touch/name. IV in place, patent. No s/s distress or pain noted. HOB elevated, bed in lowest position, call light within reach, bed alarm on. Gtube feeding on, no residuals noted, tolerating feeding. Will continue to monitor.
--- NOTE | 2019-01-30 20:30 | NUR ---
NURSE NOTES: Patient in bilateral soft wrist restraints for patient safety.
[2019-01-30] MEDS: Miralax 17gm pkt GT SCH (20:53)
--- NOTE | 2019-01-30 21:52 | NUR ---
NURSE NOTES: Patient's blood sugar was 59. Dextrose 50 was given. blood sugar was rechecked and result was 147. Will continue to monitor.
--- NOTE | 2019-01-30 22:18 | NUR ---
NURSE NOTES: Paged Dr. Hudson's number regarding patient's blood sugar per protocol, awaiting resposne. Charge nurse aware.
--- NOTE | 2019-01-30 23:20 | NUR ---
NURSE NOTES: Suctioned patient as needed.
--- NOTE | 2019-01-30 23:30 | History and Physical Report ---
DATE OF ADMISSION: 01/29/2019 CHIEF COMPLAINT: Leaking G-tube. HISTORY OF PRESENT ILLNESS: This is a 73-year-old female from [facility]. The patient has had leaking G-tube. She was sent to dialysis unit and from there admitted to the ER for G-tube replacement. The patient is extremely malnourished and needed inpatient admission due to her frail condition. PAST MEDICAL HISTORY: 1. End-stage renal failure due to diabetic nephropathy. 2. Type 2 diabetes mellitus. 3. Severe protein-calorie malnutrition. 4. Anemia of chronic kidney disease. 5. Schizophrenia. 6. Organic brain syndrome. 7. Hypertensive cardiovascular disease. 8. Sick sinus syndrome. MEDICATIONS: Tylenol p.r.n., tube feedings, amlodipine, vitamin D3, folic acid, Sandra-Ash, subcutaneous heparin, NovoLog, subcutaneous lansoprazole, Synthroid, Ativan, Reglan, minoxidil, MiraLAX, and Carafate. ALLERGIES: No known drug allergies. FAMILY HISTORY: Unable to obtain. SOCIAL HISTORY: Unable to obtain. REVIEW OF SYSTEMS: Unable to obtain. PHYSICAL EXAMINATION: GENERAL: This is an elderly female, who is in no acute distress. VITAL SIGNS: Blood pressure 147/69, pulse 78 and regular, respirations 19, and temperature 97.8 oral. HEENT: Head is normocephalic and atraumatic. Pupils are equal, round, and reactive to light and accommodation consensually. She has very poor hygiene and she is edentulous. NECK: Supple. Trachea midline. There was no lymphadenopathy or thyromegaly. LUNGS: Clear to auscultation and percussion. HEART: Regular rate and rhythm without rubs, murmurs, or gallops. ABDOMEN: Scaphoid, soft, and nontender. Bowel sounds were active. She has a G-tube. EXTREMITIES: No clubbing, cyanosis, or edema. She has right upper arm AV fistula with thrill and bruit. NEUROLOGIC: She is alert, but confused. There were no gross focal findings. LABORATORY AND ANCILLARY DATA: Hemoglobin 11.4, otherwise within normal limits. Chemistry, post dialysis on 01/29/2019 sodium 137, potassium 3.4, BUN 15, and creatinine 1.2. Albumin 3.2. ASSESSMENT: 1. Status post replacement of the G-tube. 2. End-stage renal failure due to diabetic nephropathy. 3. Type 2 diabetes mellitus. 4. Severe protein-calorie malnutrition. 5. Anemia of chronic kidney disease. 6. Schizophrenia. 7. Organic brain syndrome. 8. Hypertensive cardiovascular disease. 9. Sick sinus syndrome PLAN: 1. G-tube replaced. 2. Hemodialysis. Raul Cannon M.D. DR: NORIS JOB#: [id number] CC: SUSAN
[2019-01-31 00:29] VITALS: BP 156/82
[2019-01-31 05:26] VITALS: BP 141/65
[2019-01-31] MEDS: Sucralfate 1gm tab ORAL SCH ×4 (06:50→20:28)
[2019-01-31] MEDS: NovoLOG Insulin Flexpen SUBQ SCH ×4 (06:51→21:57)
--- NOTE | 2019-01-31 06:52 | General Progress Note ---
Assessment/Plan Problem List: (1) Malfunction of percutaneous endoscopic gastrostomy (PEG) tube ICD Codes: K94.23 - Gastrostomy malfunction SNOMED: 209556963 (2) End stage renal disease on dialysis ICD Codes: N18.6 - End stage renal disease; Z99.2 - Dependence on renal dialysis SNOMED: 553539834 (3) Diabetes ICD Codes: E11.9 - Type 2 diabetes mellitus without complications SNOMED: 03959655 Assessment/Plan: GT has been changed yesterday and is working wellon HD fu labs dc planning per primary team Subjective ROS Limited/Unobtainable: No Allergies: Coded Allergies: No Known Allergies (Unverified , 05/11/18) Subjective see full dictation GT changed at the bedside Objective Last 24 Hour Vital Signs Date Time Temp Pulse Resp B/P (MAP) Pulse Ox O2 Delivery O2 Flow Rate FiO2 01/31/19 05:26 83 141/65 (90) 01/31/19 04:00 98.5 86 19 100 01/31/19 00:29 98.3 85 19 156/82 (106) 98 01/30/19 23:19 Room Air 01/30/19 20:10 98.8 85 19 152/69 (96) 98 01/30/19 19:51 Nasal Cannula 2.0 28 01/30/19 19:50 97 Nasal Cannula 2.0 28 01/30/19 19:47 80 19 Nasal Cannula 2.0 28 01/30/19 17:31 147/69 01/30/19 16:00 98.0 80 19 154/69 (97) 99 01/30/19 12:00 97.8 78 19 147/69 (95) 99 01/30/19 09:03 133/56 01/30/19 09:03 67 133/56 01/30/19 09:00 Room Air 01/30/19 08:00 97.2 67 19 133/56 (81) 100 Intake and Output 01/30/19 01/31/19 19:00 07:00 Intake Total 980 ml 650 ml Balance 980 ml 650 ml Intake Free Water 130 ml 200 ml Tube Feeding 850 ml 450 ml Height (Feet): 5 Height (Inches): 6.00 Weight (Pounds): 123 General Appearance: no apparent distress EENT: normal ENT inspection Neck: supple Cardiovascular: normal rate Respiratory/Chest: decreased breath sounds Abdomen: normal bowel sounds, non tender, soft Extremities: non-tender Hilton Taylor MD January 31, 2019 06:52
--- NOTE | 2019-01-31 06:55 | NUR ---
NURSE NOTES: DIALYSIS NURSE, PATRICIA KEENE RN CAME TO GIVE PATIENT DIALYSIS TREATMENT. NURSE NOTIFIED REDUCTION FURNACE OPERATOR THAT THERE IS NO ORDER FROM DR. RODRIGUEZ AND NO CONSENT. NURSE ALSO INFORMED DIALYSIS NURSE THAT SHE TRIED TO CONTACT THE PEOPLE ON THE PATIENT'S CONTACT LIST BUT THERE WAS NO ANSWER, SO NO CONSENT WAS GIVEN. DIALYSIS NURSE STATED THAT IT'S OK AND THAT HE RECEIVED DIALYSIS ORDER FROM DR. RODRIGUEZ AND PUT THE ORDER IN HIMSELF. HE ALSO STATED THAT IT'S OK THAT THERE IS NO CONSENT AND THAT HE WILL NOTIFY [facility] AND THAT PATIENT USUALLY GETS DIALYSIS FROM THEM. REDUCTION FURNACE OPERATOR STILL STARTED THE DIALYSIS. CHARGE NURSE AWARE.
--- NOTE | 2019-01-31 07:07 | NUR ---
HAND-OFF: Report given to MARY PRECIADO RN.
--- NOTE | 2019-01-31 07:48 | NUR ---
NURSE NOTES: PT RECEIVING HEMODIALYSIS WHEN RN ENTERED ROOM FOR BEDSIDE REPORT. NO CONSENT OBTAINED PER PREVIOUS SHIFT RN. RN MADE HEMODIALYSIS NURSE AWARE THERE IS NO CONSENT FOR DIALYSIS AND HEMODIALYSIS NURSE STATES HE WILL OBTAIN CONSENT FROM DR GARCIA. PT IN NO APPARENT DISTRESS AT THIS TIME. PT IN HIGH-DICKEY'S POSITION WITH HOB ELEVATED FOR ASPIRATION PRECAUTIONS. WILL CONTINUE TO MONITOR.
[2019-01-31 08:00] VITALS: BP 133/66
[2019-01-31] MEDS: Nephrovite tab (Rena-Vite) GT SCH (09:32)
[2019-01-31] MEDS: Vitamin D 1000 IU Tab GT SCH (09:32)
[2019-01-31] MEDS: Minoxidil 2.5mg tab GT SCH ×2 (09:33→17:19)
[2019-01-31] MEDS: Heparin 5000 units/ml inj SUBQ SCH ×2 (09:51→20:29)
--- NOTE | 2019-01-31 11:26 | NUR ---
NURSE NOTES: BILATERAL SOFT WRIST RESTRAINTS ON PT. NO SWELLING NOTED. SKIN OF BILATERAL WRISTS INTACT. RADIAL PULSES PALPABLE. GTUBE FEEDING NEPRO STARTED AT 1000HRS. NO RESIDUAL NOTED. IN NO APPARENT DISTRESS AT THIS TIME. PT IS AXOX1. DENIES PAIN. WILL CONTINUE TO MONITOR.
--- NOTE | 2019-01-31 11:26 | NUR ---
NURSE NOTES: RN ATTEMPTED TO CALL PT'S NEXT OF KIN LISTED ON FACESHEET. NO SR. SOCIAL MEDIA & MOBILE MANAGER AND NO VOICEMAIL FROM [facility] (FRIEND). RN LEFT MESSAGE FOR MARGIE FLORES (COUSIN).
[2019-01-31 12:00] VITALS: BP 129/69
--- NOTE | 2019-01-31 12:54 | Nephrology Progress Note ---
Assessment/Plan Plan s/p PEG Repair. ESRD s/p HD DC to SNF Subjective Subjective No new c/o Objective Objective Last 24 Hour Vital Signs Date Time Temp Pulse Resp B/P (MAP) Pulse Ox O2 Delivery O2 Flow Rate FiO2 01/31/19 09:33 132/109 01/31/19 09:33 114 132/109 01/31/19 09:00 Room Air 01/31/19 08:00 98.9 81 19 133/66 (88) 97 01/31/19 05:26 83 141/65 (90) 01/31/19 04:00 98.5 86 19 100 01/31/19 00:29 98.3 85 19 156/82 (106) 98 01/30/19 23:19 Room Air 01/30/19 20:10 98.8 85 19 152/69 (96) 98 01/30/19 19:51 Nasal Cannula 2.0 28 01/30/19 19:50 97 Nasal Cannula 2.0 28 01/30/19 19:47 80 19 Nasal Cannula 2.0 28 01/30/19 17:31 147/69 01/30/19 16:00 98.0 80 19 154/69 (97) 99 Intake and Output 01/30/19 01/31/19 19:00 07:00 Intake Total 980 ml 650 ml Balance 980 ml 650 ml Intake Free Water 130 ml 200 ml Tube Feeding 850 ml 450 ml Height (Feet): 5 Height (Inches): 6.00 Weight (Pounds): 123 Objective Confused CV RR Lungs CTA Abd SNT. BS + E No CCe Raul Cannon MD January 31, 2019 12:54
[2019-01-31] MEDS: LORazepam 1mg tab GT PRN (13:05)
--- NOTE | 2019-01-31 13:07 | NUR ---
CHARGE NURSE NOTES: CALLED [facility], SPOKE WITH RISA , PER HER WILL CALL [facility], ADMISSIONS REGARDING PT ACCEPTANCE. WILL FF UP
--- NOTE | 2019-01-31 13:49 | NUR ---
NURSE NOTES: PT RESTLESS IN BED, SLIDES DOWN BED. PT DENIES PAIN. RN ADMINISTERED PRN ATIVAN 1MG BY G-TUBE ORDERED. PT REPOSITIONED AND IN HIGH-DICKEY'S POSITION WITH HOB ELEVATED. BED IN LOWEST POSITION. WILL CONTINUE TO MONITOR.
[2019-01-31 16:00] VITALS: BP 126/70
--- NOTE | 2019-01-31 19:13 | NUR ---
HAND-OFF: Report given to Fanny ELLIS RN.
[2019-01-31 20:00] VITALS: BP 139/60
--- NOTE | 2019-01-31 20:07 | NUR ---
NURSE NOTES: Patient in bed, nonverbal, opens eyes to touch/name. No s/s distress or s/s pain per FLACC scale noted. HOB elevated, bed in lowest position, call light within reach, bed alarm on. Gtube feeding on, no residuals noted, tolerating feeding. Will continue to monitor.
[2019-01-31] MEDS: Miralax 17gm pkt GT SCH (20:28)
[2019-02-01] VITALS: BP 139/61
[2019-02-01 04:00] VITALS: BP 157/66
[2019-02-01] MEDS: Sucralfate 1gm tab ORAL SCH ×2 (06:02→11:57)
--- NOTE | 2019-02-01 06:17 | NUR ---
NURSE NOTES: PATIENT YASEMIN, NO DISTRESS. Addendum: 02/01/19 at 0618 by ANU ELLIS RN RN ASLFENG*
[2019-02-01] MEDS: NovoLOG Insulin Flexpen SUBQ SCH ×2 (06:42→11:30)
--- NOTE | 2019-02-01 07:10 | NUR ---
HAND-OFF: Report given to MARY PRECIADO RN.
--- NOTE | 2019-02-01 07:49 | NUR ---
NURSE NOTES: PT RESTING IN BED. IN NO APPARENT DISTRESS AT THIS TIME. BED IN LOWEST POSITION WITH BEDSIDE RAILS X3 RAISED. BED ALARM ON. BILATERAL SOFT WRIST RESTRAINTS ON. PULSES PALPABLE AND SKIN INTACT. NO SWELLING NOTED. IN HIGH DICKEY'S POSITION AND HOB ELEVATED. WILL CONTINUE TO MONITOR.
[2019-02-01 08:00] VITALS: BP 139/53
[2019-02-01] MEDS: Vitamin D 1000 IU Tab GT SCH (08:31)
[2019-02-01] MEDS: Minoxidil 2.5mg tab GT SCH (08:31)
[2019-02-01] MEDS: Nephrovite tab (Rena-Vite) GT SCH (08:31)
[2019-02-01] MEDS: Heparin 5000 units/ml inj SUBQ SCH (08:32)
--- NOTE | 2019-02-01 08:50 | General Progress Note ---
Assessment/Plan Problem List: (1) Malfunction of percutaneous endoscopic gastrostomy (PEG) tube ICD Codes: K94.23 - Gastrostomy malfunction SNOMED: 082414431 (2) End stage renal disease on dialysis ICD Codes: N18.6 - End stage renal disease; Z99.2 - Dependence on renal dialysis SNOMED: 938639407 (3) Diabetes ICD Codes: E11.9 - Type 2 diabetes mellitus without complications SNOMED: 72082821 Assessment/Plan: GT has been changed GTF fu labs dc planning per primary team Subjective ROS Limited/Unobtainable: No Allergies: Coded Allergies: No Known Allergies (Unverified , 05/11/18) Subjective see full dictation GT changed at the bedside Objective Last 24 Hour Vital Signs Date Time Temp Pulse Resp B/P (MAP) Pulse Ox O2 Delivery O2 Flow Rate FiO2 02/01/19 08:31 139/53 02/01/19 08:31 65 139/53 02/01/19 08:00 97.6 65 18 139/53 (81) 99 02/01/19 04:00 98.0 76 16 157/66 (96) 97 02/01/19 00:00 98.9 70 16 139/61 (87) 95 01/31/19 22:17 Room Air 01/31/19 20:00 98.2 77 19 139/60 (86) 93 01/31/19 19:39 Nasal Cannula 2.0 28 01/31/19 19:39 98 Nasal Cannula 2.0 28 01/31/19 19:39 71 18 Nasal Cannula 2.0 28 01/31/19 17:19 126/70 01/31/19 16:00 98.9 61 19 126/70 (88) 98 01/31/19 12:00 97.1 71 19 129/69 (89) 96 01/31/19 09:33 132/109 01/31/19 09:33 114 132/109 01/31/19 09:00 Room Air Intake and Output 01/31/19 02/01/19 19:00 07:00 Intake Total 700 ml 675 ml Balance 700 ml 675 ml Intake Free Water 200 ml 225 ml Tube Feeding 500 ml 450 ml # Bowel Movements 1 1 Height (Feet): 5 Height (Inches): 6.00 Weight (Pounds): 123 General Appearance: no apparent distress EENT: normal ENT inspection Neck: supple Cardiovascular: normal rate Respiratory/Chest: decreased breath sounds Abdomen: normal bowel sounds, non tender, soft Extremities: non-tender Hilton Taylor MD February 01, 2019 08:50
--- NOTE | 2019-02-01 11:19 | NUR ---
CASE MANAGEMENT: DCPNOTE PER MD ORDER PATIENT REFERRED BACK TO NANCY REESE [phone] PH / [phone] FAX CM WILL FOLLOW UP
[2019-02-01] MEDS: LORazepam 1mg tab GT PRN (11:57)
[2019-02-01 12:00] VITALS: BP 130/56
--- NOTE | 2019-02-01 12:05 | NUR ---
PER BINDU / NANCY REESE [phone] PATIENT WILL RETURN TO ROOM [address] [facility] [phone] / CALLED , NO VOICEMAIL TRANSPORTATION [facility]IA [facility] [phone] ETA 14:00
--- NOTE | 2019-02-01 12:10 | Nephrology Progress Note ---
Assessment/Plan Plan s/p PEG Repair. ESRD s/p HD DC to SNF Pt. still here despite DC . BC + gp rods m/p contaminant Subjective Subjective No new c/o Objective Objective Last 24 Hour Vital Signs Date Time Temp Pulse Resp B/P (MAP) Pulse Ox O2 Delivery O2 Flow Rate FiO2 02/01/19 09:00 Room Air 02/01/19 08:31 139/53 02/01/19 08:31 65 139/53 02/01/19 08:00 97.6 65 18 139/53 (81) 99 02/01/19 07:53 99 Nasal Cannula 2.0 28 02/01/19 07:53 66 18 Nasal Cannula 2.0 28 02/01/19 07:53 Nasal Cannula 2.0 28 02/01/19 04:00 98.0 76 16 157/66 (96) 97 02/01/19 00:00 98.9 70 16 139/61 (87) 95 01/31/19 22:17 Room Air 01/31/19 20:00 98.2 77 19 139/60 (86) 93 01/31/19 19:39 Nasal Cannula 2.0 28 01/31/19 19:39 98 Nasal Cannula 2.0 28 01/31/19 19:39 71 18 Nasal Cannula 2.0 28 01/31/19 17:19 126/70 01/31/19 16:00 98.9 61 19 126/70 (88) 98 Intake and Output 01/31/19 02/01/19 19:00 07:00 Intake Total 700 ml 675 ml Balance 700 ml 675 ml Intake Free Water 200 ml 225 ml Tube Feeding 500 ml 450 ml # Bowel Movements 1 1 Height (Feet): 5 Height (Inches): 6.00 Weight (Pounds): 123 Objective Confused CV RR Lungs CTA Abd SNT. BS + E No CCe Raul Cannon MD February 01, 2019 12:10
--- NOTE | 2019-02-01 12:53 | NUR ---
NURSE NOTES: RN RECEIVED DISCHARGE CONFIRMATION TO [facility]. RN SPOKE TO DR RODRIGUEZ, AND MADE AWARE PT POSITIVE FOR 1 BOTTLE GRAM POSITIVE RODS. PER MD PT CLEARED TO BE DISCHARGED AND VRE RECTUM COLONIZED. RN LEFT MESSAGE FOR NEXT OF KIN MARGIE FLORES. RN CALLED [facility] BUT NO INSIDE SALES TERRITORY MANAGER AND NO OPTION TO LEAVE VOICEMAIL. IV ACCESS DISCONTINUED. REPORT GIVEN TO WILIAM RUANO AT [facility]. NO BELONGINGS. RN MADE BINDU AWARE PT CAN BE RESTLESS AT TIMES AND MUST WATCH FOR PULLING OF GTUBE. PT HAS ABDOMINAL BINDER.
--- NOTE | 2019-02-01 14:52 | NUR ---
DISCHARGE NOTES: PT WAS DISCHARGED IN STABLE CONDITION. AMBULANCE PERSONNEL MADE AWARE TO WATCH FOR PT PULLING ON GTUBE.
--- NOTE | 2019-02-03 07:43 | Discharge Summary ---
Discharge Summary Discharge Summary _ DATE OF ADMISSION: 01/29/2019 DATE OF DISCHARGE: 02/01/2019 DISCHARGED BY: Dr. Cannon REASON FOR ADMISSION: 73 years old female, resident of longterm facility, with past medical history of end-stage renal failure due to diabetic nephropathy, on hemodialysis , type 2 diabetes mellitus, severe protein calorie malnutrition, schizophrenia, organic brain syndrome, hypertensive cardiovascular disease, sick sinus syndrome , anemia of chronic kidney disease, was sent to emergency room due to leaking G -tube. Upon evaluation in emergency department potassium 3.4. No leukocytosis, stable hemoglobin and hematocrit . Vital signs revealed elevated blood pressure 174/62 . Patient was extremely malnourished . Patient required inpatient admission for further management. [facility] Patient admitted to medical surgical floor. GI consult was requested. G-tube was removed and replaced with 18 Chinese balloon type G-tube. Balloon was inflated, G tube was secured in place. Tube was flushing perfectly . Patient started on tube feeding with strict aspiration/reflux precaution and advanced to goal rate . Nutritional supplements provided as per registered dietitian recommendation G-tube site care continued Hemodialysis provided with close monitoring of volumes and renal parameters. Electrolytes corrected as needed. Blood culture revealed 1 out of 2 Corynebacterium species, contaminant. Patient [id number] afebrile, no leukocytosis SNF medication continued. Blood pressure was managed with calcium channel siam and minoxidil. Blood pressure stabilized. Blood sugar was managed with sliding scale of insulin. Supplemental oxygen provided as needed to keep pulse oximetry above 92%. DVT and GI prophylaxis provided. Levothyroxine continued. Hemoglobin hematocrit remained stable Patient clinically stabilized and was ready for transfer back to [facility]. FINAL DIAGNOSES: Malfunctioning G-tube Status post replacement of G-tube End-stage renal disease due to diabetic nephropathy, on hemodialysis type 2 diabetes mellitus Anemia of chronic kidney disease Severe protein calorie malnutrition Hypertensive cardiovascular disease Organic brain syndrome diabetes mellitus DISCHARGE MEDICATIONS: See Medication Reconciliation list. DISCHARGE INSTRUCTIONS: Patient was discharged to [facility] as shelter. Follow up with medical doctor at the facility. I have been assigned to dictate discharge summary for this account. I was not involved in the patient's management. Inocencia Lowry NP February 03, 2019 07:43
== END 2019-02-01 14:41 | DRG 393 ==
LOC: EDBD 17:40 → EMR 17:55 → 4E 19:20 → EDBEDREQ 20:22
PROC: 0D20XUZ Change Feeding Device in Upper Intestinal Tract, External Approach (ICD-10-PCS; principal; 2019-01-30)
PROC: 5A1D70Z Performance of Urinary Filtration, Intermittent, Less than 6 Hours Per Day (ICD-10-PCS; 2019-01-31)
DX: K94.23 Gastrostomy malfunction (principal); N18.6 End stage renal disease; I13.11 Hypertensive heart and chronic kidney disease without heart failure, with stage 5 chronic kidney disease, or end stage renal disease; E11.22 Type 2 diabetes mellitus with diabetic chronic kidney disease; Y83.3 Surgical operation with formation of external stoma as the cause of abnormal reaction of the patient, or of later complication, without mention of misadventure at the time of the procedure; Z99.2 Dependence on renal dialysis; D63.1 Anemia in chronic kidney disease; F09 Unspecified mental disorder due to known physiological condition; F20.9 Schizophrenia, unspecified; E03.9 Hypothyroidism, unspecified; Z79.4 Long term (current) use of insulin
CPT/HCPCS: 36415; 80053; 82248; 82550; 82553; 82962; 83605; 84484; 85025; 87040; 87081; 94664; 94760; 96360; 99285; J1815

== ENCOUNTER 2019-02-14 11:03 | Inpatient (IN) | payer MEDICARE, OTHER ==
[~2019-02-14] VITALS: Ht 160 cm; Wt 45.4 kg
[~2019-02-14 11:03] MED LIST changes: +ACETAMINOP160 MG/54 ORAL; +CARAFATE SUSP UD1 G1 GT; +DUONEB 0.5-3(2.53 ML HHN; +LORAZEPAM0.5 MG GT; +METOCLOPRA10 MG/10 M GT; +TRIPLE ANTIBIO1 EAC1 TP; +ZINC OXIDE56.7 G1 TP
[2019-02-14] MEDS ORDERED: Nitroglycerin Subl 0.4mg tab SL STA (11:11)
--- NOTE | 2019-02-14 11:14 | NUR ---
ED Nurse Note: Dr. Quintero at the bedside assessing pt.
[2019-02-14] MEDS ORDERED: Nitroglycerin 2% oint pkt TOPIC ONE (11:15)
--- NOTE | 2019-02-14 11:15 | Emergency Room Report ---
History of Present Illness General Chief Complaint: Dyspnea/Respdistress Source: Medical Record, EMS Present Illness HPI Patient is sent in by EMS for hypoxia from a group home facility. She is a dialysis patient. She has OBS and unable to answer questions. The patient was recently admitted for similar problem. She had pulmonary edema but seemed to get better with BiPAP and dialysis. Last admission discharge dx: Malfunctioning G-tube Status post replacement of G-tube End-stage renal disease due to diabetic nephropathy, on hemodialysis type 2 diabetes mellitus Anemia of chronic kidney disease Severe protein calorie malnutrition Hypertensive cardiovascular disease Organic brain syndrome diabetes mellitus Allergies: Coded Allergies: No Known Allergies (Unverified , 05/11/18) Patient History Limited by: medical condition Past Medical History: see triage record, old chart reviewed Past Surgical History: other - AV fistula, G tube Social History Narrative snf Reviewed Nursing Documentation: PMH: Agreed; PSxH: Agreed Nursing Documentation-PMH Past Medical History: No History, Except For Hx Cardiac Problems: No - anemia Hx Hypertension: Yes Hx Diabetes: Yes Hx Cancer: No Hx Gastrointestinal Problems: Yes Hx Dialysis: Yes - [facility] Hx Neurological Problems: Yes - organic brain syndrome Hx Weakness: Yes Review of Systems All Other Systems: limited Physical Exam Vital Signs Date Time Temp Pulse Resp B/P (MAP) Pulse Ox O2 Delivery O2 Flow Rate FiO2 02/14/19 11:02 98.2 97 20 96 Simple Mask 5.0 Sp02 EP Interpretation: reviewed, abnormal - interpreted as low by me General Appearance: mild distress, other - obtunded but with gag and resp to pain Eyes: bilateral eye normal inspection, bilateral eye PERRL ENT: moist mucus membranes Neck: supple Respiratory: crackles, rales Cardiovascular #1: regular rate, rhythm, JVD Cardiovascular #2: 2+ radial (R) Gastrointestinal: soft, decreased bowel sounds Genitourinary: no CVA tenderness Musculoskeletal: non-tender Neurologic: other - obtunded, not resp to name Psychiatric: other - lethargic Skin: no rash Procedures Critical Care Time Critical Care Time Total Critical Care Time: 60 min bedside evaluation and treatment excludes procedures (EKG). Reason for critical care: Respiratory failure, pulmonary edema, pneumonia, BiPAP , positive troponin Possible complications: hypotension, hypertension, UT, shock, arrhythmias, metabolic acidosis, end organ damage, respiratory failure. Interventions: BiPAP, antibiotics, nitrates, CO2 monitoring, aspirin Course: Patient presents with hypoxia history of renal failure. Respiratory insufficiency identified. BiPAP begun. Elevated white count right-sided infiltrate letter to antibiotics. Due to the respiratory status emergent dialysis is indicated. CO2 monitoring improving with repeated exams. Admit to stepdown unit for dialysis and BiPAP. Aspirin administered for positive troponin. Consultations: nursing staff, EMS, admitting MD Performed by: Dr. Carpenter Tolerated well condition = critical Medical Decision Making Diagnostic Impression: Primary Impression: Pulmonary edema Qualified Codes: J81.0 - Acute pulmonary edema Additional Impressions: Respiratory failure Qualified Codes: J96.01 - Acute respiratory failure with hypoxia; J96.02 - Acute respiratory failure with hypercapnia RLL pneumonia Qualified Codes: J18.1 - Lobar pneumonia, unspecified organism Pleural effusion, right ER Course Patient presents with hypoxia with history of pulmonary edema. Differential includes acute microinfarction, pulmonary edema, pneumonia and pulmonary embolus. She's afebrile and therefore infection is less likely. She doesn't make urine and therefore unable to give her Lasix. Evaluation with EKG, chest x -ray and labs. The patient is obtunded and needs to be placed on BiPAP. She does have a gag and if she is able to improve we may prevent intubation. Dr. Hudson is here evaluating the patient and arranging for dialysis and the patient will be transported up to the stepdown unit as soon as possible as we determined that she stable to go. The patient is treated with nitrates in the emergency department EKG sinus rhythm left atrial enlargement left anterior fascicular block. CXR RLL infiltrate. WBC elevated. Renal failure. + troponin - aspirin ordered. BC and Antibiotics ordered for infiltrate. More responsive on BIPAP. CO2 improving. Admit SDU Dr. Cannon - immediate dialysis. Laboratory Tests Test 02/14/19 11:19 White Blood Count 12.9 K/UL (4.8-10.8) H Red Blood Count 3.25 M/UL (4.20-5.40) L Hemoglobin 10.4 G/DL (12.0-16.0) L Hematocrit 32.5 % (37.0-47.0) L Mean Corpuscular Volume 100 FL (80-99) H Mean Corpuscular Hemoglobin 32.0 PG (27.0-31.0) H Mean Corpuscular Hemoglobin Concent 32.0 G/DL (32.0-36.0) Red Cell Distribution Width 18.0 % (11.6-14.8) H Platelet Count 205 K/UL (150-450) Mean Platelet Volume 6.1 FL (6.5-10.1) L Neutrophils (%) (Auto) % (45.0-75.0) Lymphocytes (%) (Auto) % (20.0-45.0) Monocytes (%) (Auto) % (1.0-10.0) Eosinophils (%) (Auto) % (0.0-3.0) Basophils (%) (Auto) % (0.0-2.0) Differential Total Cells Counted 100 Neutrophils % (Manual) 90 % (45-75) H Lymphocytes % (Manual) 2 % (20-45) L Monocytes % (Manual) 7 % (1-10) Eosinophils % (Manual) 1 % (0-3) Basophils % (Manual) 0 % (0-2) Band Neutrophils 0 % (0-8) Platelet Estimate Adequate Platelet Morphology Normal Anisocytosis 1+ Macrocytosis 1+ Prothrombin Time 10.8 SEC (9.30-11.50) Prothrombin Time INR 1.0 (0.9-1.1) PTT 30 SEC (23-33) Sodium Level 132 MMOL/L (136-145) L Potassium Level 5.4 MMOL/L (3.5-5.1) H Chloride Level 95 MMOL/L (98-107) L Carbon Dioxide Level 28 MMOL/L (21-32) Anion Gap 9 mmol/L (5-15) Blood Urea Nitrogen 78 mg/dL (7-18) H Creatinine 2.8 MG/DL (0.55-1.30) H Estimate Glomerular Filtration Rate mL/min (>60) Glucose Level 183 MG/DL (74-106) H Calcium Level 9.4 MG/DL (8.5-10.1) Total Bilirubin 0.6 MG/DL (0.2-1.0) Aspartate Amino Transferase (AST) 23 U/L (15-37) Alanine Aminotransferase (ALT) 19 U/L (12-78) Alkaline Phosphatase 146 U/L (46-116) H Total Creatine Kinase 44 U/L (26-308) Troponin I 0.095 ng/mL (0.000-0.056) Pro-B-Type Natriuretic Peptide > 98920 pg/mL (0-125) H Total Protein 8.2 G/DL (6.4-8.2) Albumin 3.3 G/DL (3.4-5.0) L Globulin 4.9 g/dL Albumin/Globulin Ratio 0.7 (1.0-2.7) L EKG Diagnostic Results Rate: normal Rhythm: NSR ST Segments: no acute changes - LAE LAS H Rhythm Strip Diag. Results EP Interpretation: yes Rhythm: NSR, no PVC's, no ectopy Chest X-Ray Diagnostic Results Chest X-Ray Diagnostic Results : Chest X-Ray Ordered: Yes # of Views/Limited/Complete: 1 View Indication: Shortness of Breath EP Interpretation: Yes Interpretation: no pneumothorax, other - RLL infiltrate and effusion Impression: Other Electronically Signed by: Electronically signed by Wilmer Carpenter MD Last Vital Signs Date Time Temp Pulse Resp B/P (MAP) Pulse Ox O2 Delivery O2 Flow Rate FiO2 02/14/19 16:00 Bi-pap 02/14/19 16:00 73 02/14/19 16:00 30 02/14/19 15:15 97.5 24 149/63 (91) 98 02/14/19 11:02 5.0 Status: improved Disposition: ADMITTED INPATIENT Condition: Critical Wilmer Carpenter MD February 14, 2019 11:15
[2019-02-14 11:30] LABS: HEMATOCRIT 32.5 % (37.0-47.0); HEMOGLOBIN 10.4 G/DL (12.0-16.0); MEAN CORPUSCULAR VOLUME 100 FL (80-99); PLATELET COUNT 205 K/UL (150-450); RED BLOOD COUNT 3.25 M/UL (4.20-5.40); WHITE BLOOD COUNT 12.9 K/UL (4.8-10.8)
--- NOTE | 2019-02-14 11:32 | NUR ---
ED Nurse Note: Pt. brought in by ambulance from [facility] due to desturation of pt. on the 80's. pt. was brought in the ER with 5 L of oxyen via simple mask. Pt. has AV shunt on the LFA. Pt. missed dialysis today due to the chief of complaint. Pt. has a g-tube.
[2019-02-14 11:36] VITALS: BP 136/70
[2019-02-14] MEDS ORDERED: Heparin Sod 1000 units/ml 10ml IV PRN (11:39)
[2019-02-14 11:47] LABS: ANION GAP 9 mmol/L (5-15); BLOOD UREA NITROGEN 78 mg/dL (7-18); CALCIUM 9.4 MG/DL (8.5-10.1); CARBON DIOXIDE 28 MMOL/L (21-32); CHLORIDE 95 MMOL/L (98-107); CREATININE 2.8 MG/DL (0.55-1.30); POTASSIUM 5.4 MMOL/L (3.5-5.1); SODIUM 132 MMOL/L (136-145)
[2019-02-14 11:51] LABS: ALANINE AMINOTRANSFERASE 19 U/L (12-78); ALBUMIN 3.3 G/DL (3.4-5.0); ALBUMIN/GLOBULIN RATIO 0.7 (1.0-2.7); ALKALINE PHOSPHATASE 146 U/L (46-116); ASPARTATE AMINO TRANSFERASE 23 U/L (15-37); BILIRUBIN,TOTAL 0.6 MG/DL (0.2-1.0); CREATINE KINASE 44 U/L (26-308)
--- NOTE | 2019-02-14 12:18 | NUR ---
ED Nurse Note: skin assessment done and documented. picture will be uploaded.
[2019-02-14] MEDS ORDERED: Piperacillin/Tazobactam 3.375 GM in NS 110 ML IVPB ONE (12:30)
--- NOTE | 2019-02-14 12:35 | NUR ---
ED Nurse Note: report given to WILIAM Gonzalez
--- NOTE | 2019-02-14 12:40 | NUR ---
ED Nurse Note: Blood culture sent to the lab and IV ATB initinated. per ERMD it is ok for pt to be transferred now.
[2019-02-14 13:00] VITALS: BP 127/71
--- NOTE | 2019-02-14 13:00 | NUR ---
ED Nurse Note: Pt left unit with 2 RN and 1 RT in stable condition.
--- NOTE | 2019-02-14 13:20 | NUR ---
NURSE NOTES: received patient report from yarely carmona from er. patient came in via gurney. gambling monitor initiated. iv line noted. patient is non verbal but responsive to light pain. SR on the monitor. noted that patient came in with ST2 sacral ulceration and ST1 non blanchable redness on the heels and small open wound on the tip of the nose.belongings checked and signed. under the care of dr verde. will follow plan of care.
--- NOTE | 2019-02-14 14:56 | NUR ---
NURSE NOTES: paged dr verde to call back the unit for orders. awaits callback and new order.
[2019-02-14 15:15] VITALS: BP 149/63
[2019-02-14] MEDS ORDERED: Albuterol ud Inhalation HHN PRN (15:15)
[2019-02-14] MEDS: NovoLOG Insulin Flexpen SUBQ SCH ×3 (16:30→20:49)
[2019-02-14 17:00] VITALS: BP 155/74
--- NOTE | 2019-02-14 17:28 | NUR ---
RESPIRATORY NOTE: Post transfer to [facility] from ER pt refused to wear Bipap mask. [facility] Rn, Lisa aware. Pt now on simple mask at 8liters. Sat >92%, Vitals WNL. Will continue to monitor.
--- NOTE | 2019-02-14 17:46 | NUR ---
CASE MANAGEMENT: REVIEW 73Y/F BIBA FROM [facility] CC: DESATURATION . RESP DISTRESS SI: PULMONARY EDEMA . RESP DISTRESS T 97.5 HR 74 RR 34 BP 149/63 SAT 97% BIPAP FIO2 30 WBC 12.9 H/H 10.4/32.5 NA 132 K 5.4 TROPONIN I 0.095 BNP >47811 IS: NITRO SL X1 NITRO TOPICAL X1 ASA RECTAL X1 ZOSYN IV X1 PATIENT ADMITTED TO STEP DOWN UNIT 02/14/2019 DCP: PATIENT IS FROM [facility]
--- NOTE | 2019-02-14 19:15 | NUR ---
RESPIRATORY NOTE: PT RECEIVED STABLE ON SIMPLE MASK @ 8 LPM 55%. RALES/ RHONCHI BREATH SOUNDS WERE HEARD UPON AUSCULTATION. ALL OTHER VS ARE WNL. ABG WAS DRAWN AT 1948 . FIO2 WAS TITRATED TO 3LPM VIA [employer] CANNULA POST ABG RESULTS. ABG TO BE REDRAWN POST DIALYSIS PER MD ORDER. PT HAS AN OLD SCAB ON THE TIP OF THE NOSE. WILIAM GEE WAS NOTIFIED. NO S/S OF RESPIRATORY DISTRESS NOTED AT THIS TIME. WILL CONTINUE TO MONITOR.
--- NOTE | 2019-02-14 19:26 | NUR ---
HAND-OFF: Report given to alec carmona.
--- NOTE | 2019-02-14 19:27 | NUR ---
NURSE NOTES: Report received from WILIAM Gonzalez. Patient seen in bed in semi saxena position with oxygen via simple mask at 8L.min with spo2 100%. No S/Sx of pain is noted via FLACC scale. Noted with GTF of okro, GT site is intact. AV shunt is to left upper arm. IV site is to right hand 20g and is intact. Bed is in lowest position. Call light is within easy reach while in bed. Will continue to monitor.
[2019-02-14 20:00] VITALS: BP 152/69
--- NOTE | 2019-02-14 20:00 | NUR ---
NURSE NOTES: WILIAM Alvarado from [facility] started dialysis for patient. Patient is stable at this time. Will continue to monitor.
--- NOTE | 2019-02-14 20:37 | NUR ---
NURSE NOTES: ABG results made aware to Dr Cannon with order to put patient on 3L/min via NC and ABG after dialysis.
--- NOTE | 2019-02-14 20:45 | History and Physical Report ---
DATE OF ADMISSION: 02/14/2019 CHIEF COMPLAINT: Shortness of breath. HISTORY OF PRESENT ILLNESS: This is a 73-year-old female who was on her way to get her dialysis. The patient was noted to be in severe respiratory distress. I saw the patient in the emergency department together with Dr. Carpenter. The patient is currently on BiPAP in full-blown pulmonary edema. PAST MEDICAL HISTORY: 1. End-stage renal failure, on dialysis. 2. COPD. 3. Schizophrenia. 4. Hypothyroidism. 5. Anemia of chronic kidney disease. 6. Sick sinus syndrome. 7. Type 2 diabetes mellitus. [facility] MEDICATIONS: Tylenol p.r.n., tube feeding, subcutaneous heparin, insulin sliding scale, Synthroid, lorazepam, Reglan, minoxidil, MiraLAX, Carafate, and zinc oxide. ALLERGIES: No known drug allergies. FAMILY HISTORY: Currently, unable to obtain due to her mental status. SOCIAL HISTORY: Currently, unable to obtain due to her mental status. REVIEW OF SYSTEMS: Currently, unable to obtain due to her mental status. PHYSICAL EXAMINATION: GENERAL: This is an elderly female who is currently on a BiPAP and responds only to vigorous shaking. VITAL SIGNS: Blood pressure is 110/70, pulse 80 and regular, respirations 20, and temperature 98.2 axillary. HEENT: The head is normocephalic and atraumatic. Pupils are equal, round, and reactive to light. NECK: Supple. She has jugular venous distention. LUNGS: Bilateral crackles and wheezes. HEART: Regular rate and rhythm without rubs, murmurs, or gallops. ABDOMEN: Scaphoid, soft, and nontender. Bowel sounds were active. EXTREMITIES: No clubbing noted. She has a left upper arm AV fistula. LABORATORY AND ANCILLARY DATA: Pending. ASSESSMENT: 1. Pulmonary edema. 2. End-stage renal failure, on dialysis. 3. COPD. 4. Schizophrenia. 5. Hypothyroidism. 6. Anemia of chronic kidney disease. 7. Sick sinus syndrome. 8. Type 2 diabetes mellitus. PLAN: 1. Admit to step-down. 2. Stat hemodialysis. Raul Cannon M.D. DR: NORIS JOB#: [id number] CC:
[2019-02-14] MEDS: Heparin 5000 units/ml inj SUBQ SCH (20:48)
[2019-02-14] MEDS: Minoxidil 2.5mg tab GT SCH (21:00)
--- NOTE | 2019-02-14 22:05 | NUR ---
NURSE NOTES: Dialysis completed. patient stable. 3Liter output. will continue to monitor,.
[2019-02-14] MEDS: Piperacillin/Tazobactam 2.25 GM in D5W 55 ML IVPB SCH (22:26)
--- NOTE | 2019-02-14 23:20 | NUR ---
RESPIRATORY NOTE: PT STABLE POST DIALYSIS. FIO2 INCREASED TO 10LPM, 45% POST ABG RESULT. CURRENT VS ARE HR: 65, SPO2 97%, RR 20 BPM. BREATH SOUNDS IMPROVED POST DIALYSIS. BS ARE NOW CLEAR DIMINISHED. NO S/S OF RESPIRATORY DISTRESS NOTED AT THIS TIME. WILL CONTINUE TO MONITOR.
[2019-02-15] VITALS: BP 142/60
[2019-02-15 04:00] VITALS: BP 144/67
[2019-02-15] MEDS: Piperacillin/Tazobactam 2.25 GM in D5W 55 ML IVPB SCH ×3 (05:46→21:03)
[2019-02-15] MEDS: NovoLOG Insulin Flexpen SUBQ SCH ×4 (05:49→21:02)
--- NOTE | 2019-02-15 06:56 | NUR ---
HAND-OFF: Report given to WILIAM Gonzalez.
--- NOTE | 2019-02-15 07:29 | NUR ---
NURSE NOTES: received patient report from alec carmona. patient is on bed asleep. not in acute distress. responsive to voice. on venturi mask 45% 10 li. gtube running at prescribed rate. bed is low and locked for safety. will follow plan of care.
[2019-02-15 08:00] VITALS: BP 141/63
[2019-02-15] MEDS: Minoxidil 2.5mg tab GT SCH ×2 (08:14→21:03)
[2019-02-15] MEDS: Sucralfate 1gm tab GT SCH ×4 (08:14→21:03)
[2019-02-15] MEDS: Heparin 5000 units/ml inj SUBQ SCH ×2 (08:15→21:03)
--- NOTE | 2019-02-15 09:53 | Pulmonology Progress Note ---
Assessment/Plan Assessment/Plan 1. acute respiratory failure 2. End-stage renal failure, on dialysis. 3. COPD. 4. Schizophrenia. 5. Pulmonary edema, due to overload 6. Anemia of chronic kidney disease. 7. Sick sinus syndrome. 8. diabetes mellitus. PLAN monitor ABG BIPAP PRN titrate oxygen HD with UF monitor fluid status and imaging continue supportive care impression, plan, and exam edited and reviewed in detail care discussed with RN Subjective Allergies: Coded Allergies: No Known Allergies (Unverified , 05/11/18) Subjective care noted on oxygen not on BIPAP oxygen care noted Objective Last 24 Hour Vital Signs Date Time Temp Pulse Resp B/P (MAP) Pulse Ox O2 Delivery O2 Flow Rate FiO2 02/15/19 08:14 141/63 02/15/19 08:14 64 141/63 02/15/19 08:00 62 02/15/19 08:00 Venturi Mask 10.0 02/15/19 08:00 10.0 02/15/19 08:00 97.3 64 23 141/63 (89) 100 02/15/19 04:00 10.0 02/15/19 04:00 Nasal Cannula 3.0 02/15/19 04:00 97.2 67 20 144/67 (92) 98 02/15/19 03:40 69 02/15/19 00:00 97.2 65 19 142/60 (87) 99 02/15/19 00:00 Nasal Cannula 3.0 02/14/19 23:36 64 02/14/19 21:09 66 24 99 02/14/19 20:15 73 25 100 02/14/19 20:00 3.0 02/14/19 20:00 Nasal Cannula 3.0 02/14/19 20:00 98.0 69 22 152/69 (96) 99 02/14/19 19:25 73 02/14/19 19:15 Simple Mask 8.0 55 02/14/19 19:15 73 22 100 02/14/19 19:15 73 22 Simple Mask 8.0 55 02/14/19 17:00 97.5 80 23 155/74 (101) 99 02/14/19 16:00 Bi-pap 02/14/19 16:00 73 02/14/19 16:00 30 02/14/19 15:15 97.5 72 24 149/63 (91) 98 5/18/19 15:00 74 26 97 Facial 30 02/14/19 13:48 Bi-pap 02/14/19 13:00 88 24 99 Facial 30 02/14/19 13:00 98.3 82 19 127/71 100 Bi-pap 30 02/14/19 13:00 98.3 82 24 127/71 99 30 02/14/19 12:16 30 02/14/19 11:37 81 27 Bi-pap 30 02/14/19 11:36 79 34 136/70 100 Bi-pap 30 02/14/19 11:34 80 20 Bi-pap 30 02/14/19 11:34 80 20 100 Facial 30 02/14/19 11:26 137/70 02/14/19 11:26 137/70 02/14/19 11:02 98.2 97 20 96 Simple Mask 5.0 Intake and Output 02/14/19 02/15/19 19:00 07:00 Intake Total 160 ml 540 ml Output Total 0 ml 30572 ml Balance 160 ml -83379 ml Intake Free Water 40 ml 60 ml IV Total 110 ml Tube Feeding 120 ml 370 ml Output Urine Total 0 ml Hemodialysis UF 03280 ml # Bowel Movements 2 Objective WDWN on oxygen reduced breath sounds bilaterally without rhonchi or wheeze [id number] without MRG NABS nontender no HSM no CC mild edema nonfocal reviewed and edited Laboratory Tests 02/14/19 11:19: White Blood Count 12.9H, Red Blood Count 3.25L, Hemoglobin 10.4L, Hematocrit 32.5L, Mean Corpuscular Volume 100H, Mean Corpuscular Hemoglobin 32.0H, Mean Corpuscular Hemoglobin Concent 32.0, Red Cell Distribution Width 18.0H, Platelet Count 205, Mean Platelet Volume 6.1L, Neutrophils (%) (Auto) , Lymphocytes (%) (Auto) , Monocytes (%) (Auto) , Eosinophils (%) (Auto) , Basophils (%) (Auto) , Differential Total Cells Counted 100, Neutrophils % ( Manual) 90H, Lymphocytes % (Manual) 2L, Monocytes % (Manual) 7, Eosinophils % ( Manual) 1, Basophils % (Manual) 0, Band Neutrophils 0, Platelet Estimate Adequate, Platelet Morphology Normal, Anisocytosis 1+, Macrocytosis 1+, Prothrombin Time 10.8, Prothromb Time International Ratio 1.0, Activated Partial Thromboplast Time 30, Sodium Level 132L, Potassium Level 5.4H, Chloride Level 95L, Carbon Dioxide Level 28, Anion Gap 9, Blood Urea Nitrogen 78H, Creatinine 2.8H, Estimat Glomerular Filtration Rate , Glucose Level 183H, Calcium Level 9.4, Total Bilirubin 0.6, Aspartate Amino Transf (AST/SGOT) 23, Alanine Aminotransferase (ALT/SGPT) 19, Alkaline Phosphatase 146H, Total Creatine Kinase 44, Troponin I 0.095H, Pro-B-Type Natriuretic Peptide > 44573U, Total Protein 8.2, Albumin 3.3L, Globulin 4.9, Albumin/Globulin Ratio 0.7L 02/14/19 19:30: Arterial Blood pH 7.325L, Arterial Blood Partial Pressure CO2 58.7*H, Arterial Blood Partial Pressure O2 138.8H, Arterial Blood HCO3 29.9H, Arterial Blood Oxygen Saturation 98.5, Arterial Blood Base Excess 3.0H, Zachary Test Positive 02/14/19 22:48: Arterial Blood pH 7.435, Arterial Blood Partial Pressure CO2 48.4H, Arterial Blood Partial Pressure O2 60.6L, Arterial Blood HCO3 31.8H, Arterial Blood Oxygen Saturation 90.8L, Arterial Blood Base Excess 6.6H, Zachary Test Positive Current Medications Medications (Trade) Dose Ordered Sig/Konrad Route PRN Reason Start Time Stop Time Status Last Admin Dose Admin Acetaminophen (Tylenol) 650 mg Q4H PRN GT Mild Pain/Temp > 100.5 02/14/19 15:15 03/16/19 15:14 Albuterol Sulfate (Proventil) 2.5 mg Q6HRT PRN HHN Shortness of Breath 02/14/19 15:15 02/19/19 15:14 Amlodipine Besylate (Norvasc) 10 mg DAILY GT 02/15/19 09:00 03/17/19 08:59 02/15/19 08:14 Dextrose (Dextrose 50%) 25 ml Q30M PRN IV Hypoglycemia 02/14/19 15:15 03/16/19 15:14 Dextrose (Dextrose 50%) 50 ml Q30M PRN IV Hypoglycemia 02/14/19 15:15 03/16/19 15:14 Heparin Sodium (Porcine) (Heparin 5000 units/ml) 5,000 units EVERY 12 HOURS SUBQ 02/14/19 21:00 03/16/19 20:59 02/15/19 08:15 Heparin Sodium (Porcine) (Heparin Sod 1000 units/ml 10ml) 2,000 unit ONCE PRN IV for HD use 02/14/19 11:39 02/15/19 23:59 Insulin Aspart (NovoLOG) BEFORE MEALS AND HS SUBQ 02/14/19 16:30 03/16/19 16:29 02/15/19 05:49 Levothyroxine Sodium (Synthroid) 150 mcg DAILY@0630 GT 02/15/19 06:30 03/17/19 06:29 02/15/19 05:47 Minoxidil (Loniten) 2.5 mg Q12HR GT 02/14/19 21:00 03/16/19 20:59 02/15/19 08:14 Piperacillin Sod/ Tazobactam Sod 2.25 gm/Dextrose 55 ml @ 110 mls/hr Q8HR IVPB 02/14/19 22:00 02/19/19 21:59 02/15/19 05:46 Sodium Chloride 1,000 ml @ 500 mls/hr Q2H PRN IVLG sbp<90 during hd 02/14/19 11:10 02/15/19 23:59 02/14/19 12:25 Sucralfate (Carafate) 1 gm FOUR TIMES A DAY GT 02/15/19 09:00 03/17/19 08:59 02/15/19 08:14 Jac Ramirez MD February 15, 2019 09:53
--- NOTE | 2019-02-15 10:33 | Nephrology Progress Note ---
Assessment/Plan Plan CHF --- 1 st HD with UF done. Next run tomorrow. Pneumonia - IV Abx. Subjective Subjective Less SOB. More alert. No new c/o Objective Objective Last 24 Hour Vital Signs Date Time Temp Pulse Resp B/P (MAP) Pulse Ox O2 Delivery O2 Flow Rate FiO2 02/15/19 08:14 141/63 02/15/19 08:14 64 141/63 02/15/19 08:00 62 02/15/19 08:00 Venturi Mask 10.0 02/15/19 08:00 10.0 02/15/19 08:00 97.3 64 23 141/63 (89) 100 02/15/19 04:00 10.0 02/15/19 04:00 Nasal Cannula 3.0 02/15/19 04:00 97.2 67 20 144/67 (92) 98 02/15/19 03:40 69 02/15/19 00:00 97.2 65 19 142/60 (87) 99 02/15/19 00:00 Nasal Cannula 3.0 02/14/19 23:36 64 02/14/19 21:09 66 24 99 02/14/19 20:15 73 25 100 02/14/19 20:00 3.0 02/14/19 20:00 Nasal Cannula 3.0 02/14/19 20:00 98.0 69 22 152/69 (96) 99 02/14/19 19:25 73 02/14/19 19:15 Simple Mask 8.0 55 02/14/19 19:15 73 22 100 02/14/19 19:15 73 22 Simple Mask 8.0 55 02/14/19 17:00 97.5 80 23 155/74 (101) 99 02/14/19 16:00 Bi-pap 02/14/19 16:00 73 02/14/19 16:00 30 02/14/19 15:15 97.5 72 24 149/63 (91) 98 02/14/19 15:00 74 26 97 Facial 30 02/14/19 13:48 Bi-pap 02/14/19 13:00 88 24 99 Facial 30 02/14/19 13:00 98.3 82 19 127/71 100 Bi-pap 30 02/14/19 13:00 98.3 82 24 127/71 99 30 02/14/19 12:16 30 5/18/19 11:37 81 27 Bi-pap 30 02/14/19 11:36 79 34 136/70 100 Bi-pap 30 02/14/19 11:34 80 20 Bi-pap 30 02/14/19 11:34 80 20 100 Facial 30 02/14/19 11:26 137/70 02/14/19 11:26 137/70 02/14/19 11:02 98.2 97 20 96 Simple Mask 5.0 Intake and Output 02/14/19 02/15/19 19:00 07:00 Intake Total 160 ml 540 ml Output Total 0 ml 93515 ml Balance 160 ml -83106 ml Intake Free Water 40 ml 60 ml IV Total 110 ml Tube Feeding 120 ml 370 ml Output Urine Total 0 ml Hemodialysis UF 71261 ml # Bowel Movements 2 Laboratory Tests 02/14/19 11:19: White Blood Count 12.9H, Red Blood Count 3.25L, Hemoglobin 10.4L, Hematocrit 32.5L, Mean Corpuscular Volume 100H, Mean Corpuscular Hemoglobin 32.0H, Mean Corpuscular Hemoglobin Concent 32.0, Red Cell Distribution Width 18.0H, Platelet Count 205, Mean Platelet Volume 6.1L, Neutrophils (%) (Auto) , Lymphocytes (%) (Auto) , Monocytes (%) (Auto) , Eosinophils (%) (Auto) , Basophils (%) (Auto) , Differential Total Cells Counted 100, Neutrophils % ( Manual) 90H, Lymphocytes % (Manual) 2L, Monocytes % (Manual) 7, Eosinophils % ( Manual) 1, Basophils % (Manual) 0, Band Neutrophils 0, Platelet Estimate Adequate, Platelet Morphology Normal, Anisocytosis 1+, Macrocytosis 1+, Prothrombin Time 10.8, Prothromb Time International Ratio 1.0, Activated Partial Thromboplast Time 30, Sodium Level 132L, Potassium Level 5.4H, Chloride Level 95L, Carbon Dioxide Level 28, Anion Gap 9, Blood Urea Nitrogen 78H, Creatinine 2.8H, Estimat Glomerular Filtration Rate , Glucose Level 183H, Calcium Level 9.4, Total Bilirubin 0.6, Aspartate Amino Transf (AST/SGOT) 23, Alanine Aminotransferase (ALT/SGPT) 19, Alkaline Phosphatase 146H, Total Creatine Kinase 44, Troponin I 0.095H, Pro-B-Type Natriuretic Peptide > 26397W, Total Protein 8.2, Albumin 3.3L, Globulin 4.9, Albumin/Globulin Ratio 0.7L 02/14/19 19:30: Arterial Blood pH 7.325L, Arterial Blood Partial Pressure CO2 58.7*H, Arterial Blood Partial Pressure O2 138.8H, Arterial Blood HCO3 29.9H, Arterial Blood Oxygen Saturation 98.5, Arterial Blood Base Excess 3.0H, Zachary Test Positive 02/14/19 22:48: Arterial Blood pH 7.435, Arterial Blood Partial Pressure CO2 48.4H, Arterial Blood Partial Pressure O2 60.6L, Arterial Blood HCO3 31.8H, Arterial Blood Oxygen Saturation 90.8L, Arterial Blood Base Excess 6.6H, Zachary Test Positive Height (Feet): 5 Height (Inches): 4.00 Weight (Pounds): 140 Objective CV RR Lungs B ronchi + wheezes. Abd SNT. BS + E No CCE Raul Cannon MD February 15, 2019 10:33
[2019-02-15] MEDS ORDERED: Tubing IV Secondary IV ONE (11:11)
[2019-02-15] MEDS ORDERED: NS 275ml ONE (11:11)
[2019-02-15 12:00] VITALS: BP 136/57
--- NOTE | 2019-02-15 12:16 | Diagnostic Imaging Report ---
Indication: Dyspnea Comparison: 10/28/2018 A single view chest radiograph was obtained. Findings: Pulmonary vascular congestion identified with cardiomegaly. There is a right pleural effusion. IMPRESSION: Pulmonary edema. Right pleural effusion
[2019-02-15] MEDS ORDERED: LORazepam 0.5mg tab ORAL PRN (15:30)
[2019-02-15 16:00] VITALS: BP 142/71
--- NOTE | 2019-02-15 16:30 | Consultation ---
DATE OF CONSULTATION: 02/14/2019 PULMONARY CONSULTATION CONSULTING PHYSICIAN: Jac Ramirez M.D. REASON FOR ADMISSION: Respiratory failure. REASON FOR CONSULTATION: Respiratory failure. HISTORY OF PRESENT ILLNESS: This is an elderly female, 73 years of age, who presented to the emergency room. The patient was on the way to dialysis, noted to have significant respiratory distress. The patient was seen and evaluated, noted to be in acute pulmonary edema. The patient was admitted and initially placed on BiPAP therapy. The patient overall stabilized and on evaluation had improved. The patient saturating adequately on oxygen at 50%. The patient currently when seen appeared to be mildly congested overall and the patient's labs reviewed. ER notes reviewed. Care discussed with the admitting physician. The patient does also have underlying COPD with no clear evidence of bronchospasm or chest tightness. PAST MEDICAL HISTORY: Notable for diabetes, sick sinus syndrome, anemia, hypothyroidism, schizophrenia, COPD, end-stage renal disease. MEDICATIONS: Reviewed. ALLERGIES: Reviewed. SOCIAL HISTORY: The patient is a skilled nursing patient. Nonsmoker and nondrinker, apparently debilitated. PHYSICAL EXAMINATION: GENERAL: Chronically ill-appearing female patient. VITAL SIGNS: When seen, blood pressure 152/69, pulse 69, respiratory rate 22, saturation 99%. The patient was noted to be on 3 liters nasal cannula at that time. The patient is afebrile. HEENT: Negative. Extraocular movements are grossly intact. NECK: Supple. LUNGS: Crackles at both bases. Moderate air entry. CARDIAC: S1 and S2. Regular rate and rhythm without clear murmurs, rubs, gallops. ABDOMEN: Soft and nontender. EXTREMITIES: With mild edema. No cyanosis or clubbing. NEUROLOGICALLY: Confused and slightly withdrawn. LABORATORY DATA: Reviewed. Sodium 132, potassium 5.4, BUN 78, creatinine 2.8. BNP greater than 35,000. Albumin 3.3. White cell count 12.9, hemoglobin 10.4, hematocrit 32, platelets 205. Arterial blood gases done 7.32, 58, 138, 29. IMPRESSION: Respiratory failure, acute likely on chronic COPD, acute pulmonary edema likely with fluid overload, hypoxemia, end-stage renal disease on hemodialysis, leukocytosis, possible underlying respiratory infection, anemia, mild protein-calorie malnutrition, diabetes. RECOMMENDATIONS: Supportive care. Agree with management. BiPAP as needed and taper off as able. Monitor oxygen needs and taper. Empiric antibiotics. Nebulized therapy. DVT prophylaxis. Hemodialysis with ultrafiltration. Optimize blood pressure and monitor for aspiration. Follow closely and recommend. I appreciate the opportunity to assist in this patient's care. Jac Ramirez M.D. DR: Bogdan JOB#: [id number] CC:
--- NOTE | 2019-02-15 18:55 | NUR ---
NURSE NOTES: Report received from WILIAM Gonzalez. Patient seen in bed in semi saxena position with oxygen via venturi mask at 10L, 45%min with spo2 100%. No S/Sx of pain is noted via FLACC scale. Noted with GTF of nepro, GT site is intact. AV shunt is to left upper arm. IV site is to right hand 24g and is intact. Bed is in lowest position. Call light is within easy reach while in bed. Will continue to monitor
--- NOTE | 2019-02-15 19:11 | NUR ---
HAND-OFF: Report given to alec carmona.
[2019-02-15] MEDS ORDERED: NEPHROVITE1 TAB ORAL (19:59)
[2019-02-15] MEDS ORDERED: AQUAPHOR HEALIN50 GM TP (19:59)
[2019-02-15] MEDS ORDERED: CARAFATE SUSP UD1 G1 GT (19:59)
[2019-02-15] MEDS ORDERED: NEPHRONEX900 MCG/5 GT (19:59)
[2019-02-15 20:00] VITALS: BP 144/71
[2019-02-16] VITALS: BP 145/85
[2019-02-16] MEDS: Acetaminophen 650mg/20.3ml GT PRN ×2 (02:59→15:06)
[2019-02-16] MEDS: LORazepam 0.5mg tab GT PRN ×2 (02:59→21:40)
[2019-02-16 03:57] VITALS: BP 140/76
[2019-02-16] MEDS: Piperacillin/Tazobactam 2.25 GM in D5W 55 ML IVPB SCH ×2 (05:33→16:00)
[2019-02-16] MEDS: NovoLOG Insulin Flexpen SUBQ SCH ×4 (05:34→20:35)
--- NOTE | 2019-02-16 07:10 | NUR ---
NURSE NOTES: RECEIVED BED SIDE REPORT FROM KIA SWAIN OF NOC SHIFT. RECEIVED PT WITH HOB ELEVATED 45 DEGREE SEEMS RESTING COMFORTABLY.PT ABLE TO FOLLOW SIMPLE COMMANDS.PT REPOSITIONED IN BED TO PROVIDE COMFORT AND TO PREVENT FURTHER SKIN BREAK DOWN.PT WITH GTF PATENT AND INTACT ,NO RESIDUAL NOTED AT THIS TIME.PT USING VENT MASK @ 50%,O2 SAT 97%.NO ACUTE RESP DISTRESS NOTED AT THIS TIME .WILL CONT TO MONITOR.
--- NOTE | 2019-02-16 07:30 | NUR ---
HAND-OFF: Report given to Bladimir Chan RN .
[2019-02-16 08:00] VITALS: BP 143/70
--- NOTE | 2019-02-16 08:01 | Pulmonology Progress Note ---
Assessment/Plan Assessment/Plan 1. acute respiratory failure 2. End-stage renal failure, on dialysis. 3. COPD. 4. Schizophrenia. 5. Pulmonary edema, due to overload 6. Anemia of chronic kidney disease. 7. Sick sinus syndrome. 8. diabetes mellitus. PLAN monitor ABG for change BIPAP PRN titrate oxygen HD with UF monitor fluid status and imaging continue supportive care follow up fluid status impression, plan, and exam edited and reviewed in detail care discussed with RN Subjective ROS Limited/Unobtainable: Yes Allergies: Coded Allergies: No Known Allergies (Unverified , 05/11/18) Subjective care noted on oxygen awake oxygen care noted Objective Last 24 Hour Vital Signs Date Time Temp Pulse Resp B/P (MAP) Pulse Ox O2 Delivery O2 Flow Rate FiO2 02/16/19 04:00 10.0 02/16/19 04:00 Venturi Mask 10.0 02/16/19 03:57 98.1 76 19 140/76 (97) 100 02/16/19 03:33 68 02/16/19 00:00 98.4 73 18 145/85 (105) 98 02/16/19 00:00 Venturi Mask 10.0 02/15/19 23:21 68 02/15/19 21:52 76 20 Venturi Mask 14.0 55 02/15/19 21:50 98 Venturi Mask 14.0 55 02/15/19 21:49 Venturi Mask 14.0 55 02/15/19 21:03 144/71 02/15/19 20:00 97.8 78 20 144/71 (95) 98 02/15/19 20:00 10.0 02/15/19 20:00 Venturi Mask 10.0 02/15/19 19:03 71 02/15/19 16:00 10.0 02/15/19 16:00 Venturi Mask 10.0 02/15/19 16:00 71 02/15/19 16:00 97.7 72 21 142/71 (94) 98 02/15/19 12:00 97.7 64 21 136/57 (83) 98 02/15/19 12:00 10.0 02/15/19 12:00 Venturi Mask 10.0 02/15/19 12:00 66 02/15/19 08:14 141/63 02/15/19 08:14 64 141/63 Intake and Output 02/15/19 02/16/19 19:00 07:00 Intake Total 790 ml 740 ml Balance 790 ml 740 ml Intake Free Water 80 ml 80 ml IV Total 110 ml 110 ml Tube Feeding 600 ml 550 ml # Bowel Movements 5 1 Objective WDWN on oxygen reduced breath sounds bilaterally without rhonchi or wheeze [id number] without MRG NABS nontender no HSM no CC mild edema nonfocal reviewed and edited Microbiology Date/Time Source Procedure Growth Status 02/14/19 12:40 Blood Blood Culture - Preliminary NO GROWTH AFTER 24 HOURS Resulted 02/14/19 12:25 Blood Blood Culture - Preliminary NO GROWTH AFTER 24 HOURS Resulted Current Medications Medications (Trade) Dose Ordered Sig/Konrad Route PRN Reason Start Time Stop Time Status Last Admin Dose Admin Acetaminophen (Tylenol) 650 mg Q4H PRN GT Mild Pain/Temp > 100.5 02/14/19 15:15 03/16/19 15:14 02/16/19 02:59 Albuterol Sulfate (Proventil) 2.5 mg Q6HRT PRN HHN Shortness of Breath 02/14/19 15:15 02/19/19 15:14 Amlodipine Besylate (Norvasc) 10 mg DAILY GT 02/15/19 09:00 03/17/19 08:59 02/15/19 08:14 Dextrose (Dextrose 50%) 25 ml Q30M PRN IV Hypoglycemia 02/14/19 15:15 03/16/19 15:14 Dextrose (Dextrose 50%) 50 ml Q30M PRN IV Hypoglycemia 02/14/19 15:15 03/16/19 15:14 Heparin Sodium (Porcine) (Heparin 5000 units/ml) 5,000 units EVERY 12 HOURS SUBQ 02/14/19 21:00 03/16/19 20:59 02/15/19 21:03 Insulin Aspart (NovoLOG) BEFORE MEALS AND HS SUBQ 02/14/19 16:30 03/16/19 16:29 02/16/19 05:34 Levothyroxine Sodium (Synthroid) 150 mcg DAILY@0630 GT 02/15/19 06:30 03/17/19 06:29 02/16/19 05:33 Lorazepam (Ativan) 0.5 mg Q4H PRN GT For Anxiety 02/15/19 15:36 02/22/19 15:35 02/16/19 02:59 Minoxidil (Loniten) 2.5 mg Q12HR GT 02/14/19 21:00 03/16/19 20:59 02/15/19 21:03 Piperacillin Sod/ Tazobactam Sod 2.25 gm/Dextrose 55 ml @ 110 mls/hr Q8HR IVPB 02/14/19 22:00 02/19/19 21:59 02/16/19 05:33 Sucralfate (Carafate) 1 gm FOUR TIMES A DAY GT 02/15/19 09:00 03/17/19 08:59 02/15/19 21:03 Jac Ramirez MD February 16, 2019 08:01
--- NOTE | 2019-02-16 10:07 | Nephrology Progress Note ---
Assessment/Plan Plan CHF --- 1 st HD with UF done. Next run today. Pneumonia - IV Abx. Subjective Subjective Less SOB. More alert. No new c/o Objective Objective Last 24 Hour Vital Signs Date Time Temp Pulse Resp B/P (MAP) Pulse Ox O2 Delivery O2 Flow Rate FiO2 02/16/19 08:00 97.6 68 26 143/70 (94) 99 02/16/19 08:00 68 02/16/19 04:00 10.0 02/16/19 04:00 Venturi Mask 10.0 02/16/19 03:57 98.1 76 19 140/76 (97) 100 02/16/19 03:33 68 02/16/19 00:00 98.4 73 18 145/85 (105) 98 02/16/19 00:00 Venturi Mask 10.0 02/15/19 23:21 68 02/15/19 21:52 76 20 Venturi Mask 14.0 55 02/15/19 21:50 98 Venturi Mask 14.0 55 02/15/19 21:49 Venturi Mask 14.0 55 02/15/19 21:03 144/71 02/15/19 20:00 97.8 78 20 144/71 (95) 98 02/15/19 20:00 10.0 02/15/19 20:00 Venturi Mask 10.0 02/15/19 19:03 71 02/15/19 16:00 10.0 02/15/19 16:00 Venturi Mask 10.0 02/15/19 16:00 71 02/15/19 16:00 97.7 72 21 142/71 (94) 98 02/15/19 12:00 97.7 64 21 136/57 (83) 98 02/15/19 12:00 10.0 02/15/19 12:00 Venturi Mask 10.0 02/15/19 12:00 66 Intake and Output 02/15/19 02/16/19 19:00 07:00 Intake Total 790 ml 740 ml Balance 790 ml 740 ml Intake Free Water 80 ml 80 ml IV Total 110 ml 110 ml Tube Feeding 600 ml 550 ml # Bowel Movements 5 1 Laboratory Tests 02/16/19 09:25: Arterial Blood pH 7.397, Arterial Blood Partial Pressure CO2 46.0H, Arterial Blood Partial Pressure O2 61.2L, Arterial Blood HCO3 27.7H, Arterial Blood Oxygen Saturation 90.1L, Arterial Blood Base Excess 2.4H, Zachary Test Positive Height (Feet): 5 Height (Inches): 4.00 Weight (Pounds): 140 Objective CV RR Lungs B ronchi + wheezes. Abd SNT. BS + E No CCE Raul Cannon MD February 16, 2019 10:07
[2019-02-16] MEDS: Sucralfate 1gm tab GT SCH ×4 (10:18→20:33)
[2019-02-16] MEDS: Minoxidil 2.5mg tab GT SCH ×2 (10:19→20:33)
[2019-02-16] MEDS: Heparin 5000 units/ml inj SUBQ SCH ×2 (10:20→20:34)
[2019-02-16 12:00] VITALS: BP 144/63
--- NOTE | 2019-02-16 12:13 | NUR ---
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 * Increased kcal/prot needs R/T renal dysfunction, ESRD, wound healing, underweight status as evidenced by pt on HD, admitted w/ sacral partial thickness wound per rn clinical documentation specialist, low BMI per guidelines, pt @ 89% IBW. CURRENT TF:Nepro @50 x22 hrs -> 107% est kcal, 100% est prot needs ENTERAL NUTRITION RECOMMENDATIONS: Nepro @ 45ml/hr x 22 hrs to provide 990ml, 1782kcal, 80g prot, 720ml free water * Rec to lower TF rate to 45ml/hr x 22 hrs- meets 100% est kcal/prot needs * Hold 1 hr before and after Synthroid med * HOB over 30 degrees/ water flush per MD ADDITIONAL RECOMMENDATIONS: * Per SNF record: HT=66", WY=[id number] (02/09/19) -> rec calibrated bedscale wt. Current bedscale reads 63.6kg (140lbs) * Obtain dry wt post HD * F/UP w/ WC eval for sacral wound (rec to add Zeke 1pkt BID) * Monitor lytes - ESRD dx .
[2019-02-16 14:10] LABS: BASOPHILS % (AUTO) 1.4 % (0.0-2.0); EOSINOPHILS % (AUTO) 4.7 % (0.0-3.0); HEMATOCRIT 30.2 % (37.0-47.0); HEMOGLOBIN 9.8 G/DL (12.0-16.0); LYMPHOCYTES % (AUTO) 4.7 % (20.0-45.0); MEAN CORPUSCULAR VOLUME 98 FL (80-99); MONOCYTES % (AUTO) 7.2 % (1.0-10.0); PLATELET COUNT 176 K/UL (150-450); RED BLOOD COUNT 3.09 M/UL (4.20-5.40); RED CELL DISTRIBUTION WIDTH 16.7 % (11.6-14.8); WHITE BLOOD COUNT 7.7 K/UL (4.8-10.8)
[2019-02-16 14:21] LABS: ANION GAP 9 mmol/L (5-15); BLOOD UREA NITROGEN 86 mg/dL (7-18); CARBON DIOXIDE 29 MMOL/L (21-32); CHLORIDE 93 MMOL/L (98-107); CREATININE 3.3 MG/DL (0.55-1.30); POTASSIUM 3.8 MMOL/L (3.5-5.1); SODIUM 131 MMOL/L (136-145)
[2019-02-16 16:00] VITALS: BP 125/62
--- NOTE | 2019-02-16 19:30 | NUR ---
HAND-OFF: Report given to .SNEHA SWAIN.
--- NOTE | 2019-02-16 19:31 | NUR ---
NURSE NOTES: Received bedside report from WILIAM Garrison.Patient stable,A&Ox1,SR on school lunch monitor,tolerated well Ventury mask @10L/min,FiO2 50%,BS active in all quadrants,GT running with Nepro 1.8@50ml/hr,no residual,AV shunt on GIANNI for HD only,IV on R wrist HL 22G,bed secured,call light within a reach,will continue to monitor annnd follow POC.
--- NOTE | 2019-02-16 19:37 | Cardiology Report ---
APPROVED REPORT EKG Measurement Heart [id number] Normal sinus rhythm Possible Left atrial enlargement Left anterior fascicular block Abnormal ECG
[2019-02-16 20:00] VITALS: BP 140/70
[2019-02-17] VITALS: BP 136/60
[2019-02-17 04:00] VITALS: BP 146/65
[2019-02-17] MEDS: NovoLOG Insulin Flexpen SUBQ SCH ×4 (06:18→20:30)
--- NOTE | 2019-02-17 07:17 | NUR ---
HAND-OFF: Report given to WILIAM Carnes.Patient stable.
--- NOTE | 2019-02-17 07:25 | NUR ---
NURSE NOTES: received patient from WILIAM Paula. patient is awake but confused. Patient has Venturi mask at 10 Liters, 50%. GTube is patent and intact, feeding is currently held due to administration of Synthroid. Skin alterations noted. AV shunt GIANNI, and Right wrist 22 gauge patent and intact. bed in lowest position and locked, padded siderails up X 3, call light within reach. will continue to monitor.
[2019-02-17 08:00] VITALS: BP 147/59
[2019-02-17] MEDS: Piperacillin/Tazobactam 2.25 GM in D5W 55 ML IVPB SCH ×4 (08:00→16:36)
--- NOTE | 2019-02-17 08:55 | Pulmonology Progress Note ---
Assessment/Plan Assessment/Plan 1. acute respiratory failure 2. End-stage renal failure, on dialysis. 3. COPD. 4. Schizophrenia. 5. Pulmonary edema, due to overload 6. Anemia of chronic kidney disease. 7. Sick sinus syndrome. 8. diabetes mellitus. PLAN acid base adequate BIPAP PRN titrate oxygen and reduce as able HD with UF monitor fluid status and imaging- ordered continue supportive care follow up fluid status somewhat improved impression, plan, and exam edited and reviewed in detail care discussed with RN Subjective Allergies: Coded Allergies: No Known Allergies (Unverified , 05/11/18) Subjective care noted on oxygen awake off BIPAP Objective Last 24 Hour Vital Signs Date Time Temp Pulse Resp B/P (MAP) Pulse Ox O2 Delivery O2 Flow Rate FiO2 02/17/19 08:00 98.6 67 19 147/59 (88) 100 02/17/19 08:00 10.0 50 02/17/19 08:00 64 02/17/19 08:00 Venturi Mask 10.0 02/17/19 06:30 100 Venturi Mask 14.0 55 02/17/19 06:30 80 21 100 Venturi Mask 14.0 55 02/17/19 06:30 Venturi Mask 14.0 55 02/17/19 04:00 Venturi Mask 10.0 02/17/19 04:00 10.0 50 02/17/19 04:00 97.3 65 28 146/65 (92) 100 02/17/19 03:24 70 02/17/19 00:00 Venturi Mask 10.0 02/17/19 00:00 97.3 71 20 136/60 (85) 100 02/16/19 23:35 67 02/16/19 20:33 140/70 02/16/19 20:00 10.0 50 02/16/19 20:00 Venturi Mask 10.0 02/16/19 20:00 97.5 73 24 140/70 (93) 100 02/16/19 19:26 69 02/16/19 19:24 70 18 96 Venturi Mask 14.0 55 02/16/19 19:24 Venturi Mask 14.0 55 02/16/19 19:24 96 Venturi Mask 14.0 55 02/16/19 16:00 Venturi Mask 10.0 02/16/19 16:00 74 02/16/19 16:00 10.0 02/16/19 16:00 98.0 23 125/62 (83) 100 02/16/19 15:36 97.9 02/16/19 12:00 Venturi Mask 10.0 02/16/19 12:00 10.0 02/16/19 12:00 97.9 67 24 144/63 (90) 96 02/16/19 10:19 143/70 02/16/19 10:19 68 143/70 02/16/19 10:00 10.0 Intake and Output 02/16/19 02/17/19 19:00 07:00 Intake Total 500 ml 615 ml Output Total 3000 ml Balance -2500 ml 615 ml Intake Free Water 50 ml 60 ml IV Total 55 ml Tube Feeding 450 ml 500 ml Hemodialysis UF 3000 ml # Bowel Movements 2 Objective WDWN on oxygen reduced breath sounds bilaterally without rhonchi or wheeze [id number] without MRG NABS nontender no HSM no CC mild edema nonfocal reviewed and edited Microbiology Date/Time Source Procedure Growth Status 02/14/19 12:40 Blood Blood Culture - Preliminary NO GROWTH AFTER 48 HOURS Resulted 02/14/19 12:25 Blood Blood Culture - Preliminary NO GROWTH AFTER 48 HOURS Resulted 02/14/19 12:20 Nasal Nares Left MRSA Culture - Final NO METHICILLIN RESISTANT STAPH AUREUS... Complete 02/14/19 12:20 Rectum VRE Culture - Final Enterococcus Faecium - Vre Complete 02/14/19 12:20 Rectum - Final NO CARBAPENEM-RESISTANT ENTEROBACTERI... Complete Laboratory Tests 02/16/19 09:25: Arterial Blood pH 7.397, Arterial Blood Partial Pressure CO2 46.0H, Arterial Blood Partial Pressure O2 61.2L, Arterial Blood HCO3 27.7H, Arterial Blood Oxygen Saturation 90.1L, Arterial Blood Base Excess 2.4H, Zachary Test Positive 02/16/19 13:55: White Blood Count 7.7, Red Blood Count 3.09L, Hemoglobin 9.8L, Hematocrit 30.2L , Mean Corpuscular Volume 98, Mean Corpuscular Hemoglobin 31.7H, Mean Corpuscular Hemoglobin Concent 32.3, Red Cell Distribution Width 16.7H, Platelet Count 176, Mean Platelet Volume 5.2L, Neutrophils (%) (Auto) 82.0H, Lymphocytes (%) (Auto) 4.7L, Monocytes (%) (Auto) 7.2, Eosinophils (%) (Auto) 4.7H, Basophils (%) (Auto) 1.4, Sodium Level 131L, Potassium Level 3.8, Chloride Level 93L, Carbon Dioxide Level 29, Anion Gap 9, Blood Urea Nitrogen 86H, Creatinine 3.3H, Estimat Glomerular Filtration Rate , Glucose Level 173H, Calcium Level 9.0 Current Medications Medications (Trade) Dose Ordered Sig/Konrad Route PRN Reason Start Time Stop Time Status Last Admin Dose Admin Acetaminophen (Tylenol) 650 mg Q4H PRN GT Mild Pain/Temp > 100.5 02/14/19 15:15 03/16/19 15:14 02/16/19 15:06 Albuterol Sulfate (Proventil) 2.5 mg Q6HRT PRN HHN Shortness of Breath 02/14/19 15:15 02/19/19 15:14 Amlodipine Besylate (Norvasc) 10 mg DAILY GT 02/15/19 09:00 03/17/19 08:59 02/16/19 10:19 Dextrose (Dextrose 50%) 25 ml Q30M PRN IV Hypoglycemia 02/14/19 15:15 03/16/19 15:14 Dextrose (Dextrose 50%) 50 ml Q30M PRN IV Hypoglycemia 02/14/19 15:15 03/16/19 15:14 Heparin Sodium (Porcine) (Heparin 5000 units/ml) 5,000 units EVERY 12 HOURS SUBQ 02/14/19 21:00 03/16/19 20:59 02/16/19 20:34 Insulin Aspart (NovoLOG) BEFORE MEALS AND HS SUBQ 02/14/19 16:30 03/16/19 16:29 02/17/19 06:18 Levothyroxine Sodium (Synthroid) 150 mcg DAILY@0630 GT 02/15/19 06:30 03/17/19 06:29 02/17/19 06:17 Lorazepam (Ativan) 0.5 mg Q4H PRN GT For Anxiety 02/15/19 15:36 02/22/19 15:35 02/16/19 21:40 Minoxidil (Loniten) 2.5 mg Q12HR GT 02/14/19 21:00 03/16/19 20:59 02/16/19 20:33 Piperacillin Sod/ Tazobactam Sod 2.25 gm/Dextrose 55 ml @ 110 mls/hr Q8H IVPB 02/16/19 16:00 02/21/19 21:59 02/17/19 08:00 Sucralfate (Carafate) 1 gm FOUR TIMES A DAY GT 02/15/19 09:00 03/17/19 08:59 02/16/19 20:33 Jac Ramirez MD February 17, 2019 08:55
[2019-02-17] MEDS: Sucralfate 1gm tab GT SCH ×4 (10:18→20:27)
[2019-02-17] MEDS: Minoxidil 2.5mg tab GT SCH ×2 (10:18→20:26)
[2019-02-17] MEDS: Heparin 5000 units/ml inj SUBQ SCH ×2 (10:19→20:29)
[2019-02-17 12:00] VITALS: BP 133/56
--- NOTE | 2019-02-17 13:31 | Nephrology Progress Note ---
Assessment/Plan Plan CHF --- HD MWF Pneumonia - IV Abx. Subjective Subjective Less SOB. More alert. No new c/o Objective Objective Last 24 Hour Vital Signs Date Time Temp Pulse Resp B/P (MAP) Pulse Ox O2 Delivery O2 Flow Rate FiO2 02/17/19 10:18 147/59 02/17/19 10:18 64 147/59 02/17/19 08:00 98.6 67 19 147/59 (88) 100 02/17/19 08:00 10.0 50 02/17/19 08:00 64 02/17/19 08:00 Venturi Mask 10.0 02/17/19 06:30 100 Venturi Mask 14.0 55 02/17/19 06:30 80 21 100 Venturi Mask 14.0 55 02/17/19 06:30 Venturi Mask 14.0 55 02/17/19 04:00 Venturi Mask 10.0 02/17/19 04:00 10.0 50 02/17/19 04:00 97.3 65 28 146/65 (92) 100 02/17/19 03:24 70 02/17/19 00:00 Venturi Mask 10.0 02/17/19 00:00 97.3 71 20 136/60 (85) 100 02/16/19 23:35 67 02/16/19 20:33 140/70 02/16/19 20:00 10.0 50 02/16/19 20:00 Venturi Mask 10.0 02/16/19 20:00 97.5 73 24 140/70 (93) 100 02/16/19 19:26 69 02/16/19 19:24 70 18 96 Venturi Mask 14.0 55 02/16/19 19:24 Venturi Mask 14.0 55 02/16/19 19:24 96 Venturi Mask 14.0 55 02/16/19 16:00 Venturi Mask 10.0 02/16/19 16:00 74 02/16/19 16:00 10.0 02/16/19 16:00 98.0 23 125/62 (83) 100 02/16/19 15:36 97.9 Intake and Output 02/16/19 02/17/19 19:00 07:00 Intake Total 500 ml 615 ml Output Total 3000 ml Balance -2500 ml 615 ml Intake Free Water 50 ml 60 ml IV Total 55 ml Tube Feeding 450 ml 500 ml Hemodialysis UF 3000 ml # Bowel Movements 2 Laboratory Tests 02/16/19 13:55: White Blood Count 7.7, Red Blood Count 3.09L, Hemoglobin 9.8L, Hematocrit 30.2L , Mean Corpuscular Volume 98, Mean Corpuscular Hemoglobin 31.7H, Mean Corpuscular Hemoglobin Concent 32.3, Red Cell Distribution Width 16.7H, Platelet Count 176, Mean Platelet Volume 5.2L, Neutrophils (%) (Auto) 82.0H, Lymphocytes (%) (Auto) 4.7L, Monocytes (%) (Auto) 7.2, Eosinophils (%) (Auto) 4.7H, Basophils (%) (Auto) 1.4, Sodium Level 131L, Potassium Level 3.8, Chloride Level 93L, Carbon Dioxide Level 29, Anion Gap 9, Blood Urea Nitrogen 86H, Creatinine 3.3H, Estimat Glomerular Filtration Rate , Glucose Level 173H, Calcium Level 9.0 Height (Feet): 5 Height (Inches): 4.00 Weight (Pounds): 137 Objective CV RR Lungs B ronchi + wheezes. Abd SNT. BS + E No CCE Raul Cannon MD February 17, 2019 13:31
--- NOTE | 2019-02-17 14:46 | NUR ---
NURSE NOTES: called [facility] to schedule hemodialysis on 02/18/19 per MD order. spoke with
[2019-02-17 16:00] VITALS: BP 145/67
--- NOTE | 2019-02-17 16:15 | NUR ---
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 PNA VS: BP 147/59, P 64, T 97.3, RR 28, SpO2 100 on 14.0L VENTURI MASK FiO2 50 RBC 3.09, H&H 9.8/30.2, Na 131, BUN 86, CR 3.3 IS:NOVOLOG SUBQ HEPARIN SUBQ NORVASC 10mg LONITEN 2.5mg ZOSYN 55ml IVPB SYNTHROID 150mcg SDU STATUS
--- NOTE | 2019-02-17 19:08 | NUR ---
HAND-OFF: Report given to [].
--- NOTE | 2019-02-17 19:18 | NUR ---
HAND-OFF: Report given to Chelly Natarajan RN.
--- NOTE | 2019-02-17 19:19 | NUR ---
NURSE NOTES: Received bedside report from WILIAM Carnes.Patient stable,A&Ox1,SR on rn cardiac,tolerated well Ventury mask @8L/min,FiO2 50%,BS active in all quadrants,GT running with Nepro 1.8@45ml/hr for 22 hrs,flush 180ml every 6 hrs,no residual noted at this moment,AV shunt on GIANNI for HD only, dialysis scheduled for tomorrow 02/18/19, IV on R wrist HL 22G,bed secured,call light within a reach,will continue to monitor and follow POC.
[2019-02-17 20:00] VITALS: BP 146/66
[2019-02-17] MEDS: LORazepam 0.5mg tab GT PRN (20:27)
[2019-02-17] MEDS: Acetaminophen 650mg/20.3ml GT PRN (20:28)
--- NOTE | 2019-02-17 22:27 | NUR ---
NURSE NOTES: Called non-emergency line and left massage regarding pt's condition and request an order for Zofran RRN d/t vomiting.Waiting for Doctor's respond.Charge nurse aware.
--- NOTE | 2019-02-17 23:00 | NUR ---
NURSE NOTES: Received a call back from .New orders to Keep pt NPO from hemrila and Zofran 4 mg every 4 hrs PRN,no X-Ray need it.Charge nurse aware
[2019-02-18] VITALS: BP 138/68
[2019-02-18] MEDS: Piperacillin/Tazobactam 2.25 GM in D5W 55 ML IVPB SCH ×4 (00:08→23:04)
[2019-02-18 04:00] VITALS: BP 143/68
[2019-02-18 05:18] LABS: EOSINOPHILS % (AUTO) 1.9 % (0.0-3.0); HEMATOCRIT 30.9 % (37.0-47.0); HEMOGLOBIN 9.8 G/DL (12.0-16.0); LYMPHOCYTES % (AUTO) 5.3 % (20.0-45.0); MEAN CORPUSCULAR VOLUME 100 FL (80-99); MONOCYTES % (AUTO) 7.5 % (1.0-10.0); NEUTROPHILS % (AUTO) 84.3 % (45.0-75.0); PLATELET COUNT 203 K/UL (150-450); RED BLOOD COUNT 3.11 M/UL (4.20-5.40); RED CELL DISTRIBUTION WIDTH 15.9 % (11.6-14.8); WHITE BLOOD COUNT 7.4 K/UL (4.8-10.8)
[2019-02-18 05:52] LABS: ALANINE AMINOTRANSFERASE 18 U/L (12-78); ALBUMIN 2.8 G/DL (3.4-5.0); ALBUMIN/GLOBULIN RATIO 0.6 (1.0-2.7); ALKALINE PHOSPHATASE 107 U/L (46-116); ANION GAP 9 mmol/L (5-15); ASPARTATE AMINO TRANSFERASE 17 U/L (15-37); BILIRUBIN,TOTAL 0.7 MG/DL (0.2-1.0); BLOOD UREA NITROGEN 75 mg/dL (7-18); CARBON DIOXIDE 31 MMOL/L (21-32); CHLORIDE 91 MMOL/L (98-107); CREATININE 3.1 MG/DL (0.55-1.30); PHOSPHORUS 4.7 MG/DL (2.5-4.9); POTASSIUM 4.4 MMOL/L (3.5-5.1); SODIUM 130 MMOL/L (136-145)
[2019-02-18] MEDS ORDERED: Heparin Sod 1000 units/ml 10ml IV PRN (06:00)
[2019-02-18] MEDS: NovoLOG Insulin Flexpen SUBQ SCH ×4 (06:06→21:04)
--- NOTE | 2019-02-18 07:37 | NUR ---
HAND-OFF: Report given to WILIAM Gonzalez.Patient stable.
--- NOTE | 2019-02-18 07:45 | NUR ---
NURSE NOTES: received patient report from duarte carmona. patient is on bed awake. agitated. not in acute distress. no arrythmias reported during the night. bed is low and locked for safety. will follow plan of care.
[2019-02-18 08:00] VITALS: BP 137/64
[2019-02-18] MEDS: Minoxidil 2.5mg tab GT SCH ×2 (08:13→21:01)
[2019-02-18] MEDS: Sucralfate 1gm tab GT SCH ×4 (08:13→21:00)
[2019-02-18] MEDS: Heparin 5000 units/ml inj SUBQ SCH ×2 (08:16→21:03)
[2019-02-18 12:00] VITALS: BP 129/57
--- NOTE | 2019-02-18 12:04 | Pulmonology Progress Note ---
Assessment/Plan Assessment/Plan Pulmonary Progress Note Assessment/Plan 1. acute respiratory failure 2. End-stage renal failure, on dialysis. 3. COPD. 4. Schizophrenia. 5. Pulmonary edema, right pleural effusion due to overload 6. Anemia of chronic kidney disease. 7. Sick sinus syndrome. 8. diabetes mellitus. PLAN acid base adequate BIPAP PRN titrate oxygen and reduce as able HD with UF monitor fluid status and imaging- ordered continue supportive care follow up fluid status somewhat improved impression, plan, and exam edited and reviewed in detail care discussed with RN Subjective Allergies: Coded Allergies: No Known Allergies (Unverified , 05/11/18) Subjective care noted on oxygen awake off BIPAP Objective Vital Signs Noted Objective WDWN on oxygen reduced breath sounds bilaterally without rhonchi or wheeze [id number] without MRG NABS nontender no HSM no CC mild edema nonfocal reviewed and edited Microbiology Date/Time Source Procedure Growth Status 02/14/19 12:40 Blood Blood Culture - Preliminary NO GROWTH AFTER 48 HOURS Resulted 02/14/19 12:25 Blood Blood Culture - Preliminary NO GROWTH AFTER 48 HOURS Resulted 02/14/19 12:20 Nasal Nares Left MRSA Culture - Final NO METHICILLIN RESISTANT STAPH AUREUS... Complete 02/14/19 12:20 Rectum VRE Culture - Final Enterococcus Faecium - Vre Complete 02/14/19 12:20 Rectum - Final NO CARBAPENEM-RESISTANT ENTEROBACTERI... Complete Laboratory Tests 02/16/19 09:25: Arterial Blood pH 7.397, Arterial Blood Partial Pressure CO2 46.0H, Arterial Blood Partial Pressure O2 61.2L, Arterial Blood HCO3 27.7H, Arterial Blood Oxygen Saturation 90.1L, Arterial Blood Base Excess 2.4H, Zachary Test Positive 02/16/19 13:55: White Blood Count 7.7, Red Blood Count 3.09L, Hemoglobin 9.8L, Hematocrit 30.2L , Mean Corpuscular Volume 98, Mean Corpuscular Hemoglobin 31.7H, Mean Corpuscular Hemoglobin Concent 32.3, Red Cell Distribution Width 16.7H, Platelet Count 176, Mean Platelet Volume 5.2L, Neutrophils (%) (Auto) 82.0H, Lymphocytes (%) (Auto) 4.7L, Monocytes (%) (Auto) 7.2, Eosinophils (%) (Auto) 4.7H, Basophils (%) (Auto) 1.4, Sodium Level 131L, Potassium Level 3.8, Chloride Level 93L, Carbon Dioxide Level 29, Anion Gap 9, Blood Urea Nitrogen 86H, Creatinine 3.3H, Estimat Glomerular Filtration Rate , Glucose Level 173H, Calcium Level 9.0 Current Medications Medications (Trade) Dose Ordered Sig/Konrad Route PRN Reason Start Time Stop Time Status Last Admin Dose Admin Acetaminophen (Tylenol) 650 mg Q4H PRN GT Mild Pain/Temp > 100.5 02/14/19 15:15 03/16/19 15:14 02/16/19 15:06 Albuterol Sulfate (Proventil) 2.5 mg Q6HRT PRN HHN Shortness of Breath 02/14/19 15:15 02/19/19 15:14 Amlodipine Besylate (Norvasc) 10 mg DAILY GT 02/15/19 09:00 03/17/19 08:59 02/16/19 10:19 Dextrose (Dextrose 50%) 25 ml Q30M PRN IV Hypoglycemia 02/14/19 15:15 03/16/19 15:14 Dextrose (Dextrose 50%) 50 ml Q30M PRN IV Hypoglycemia 02/14/19 15:15 03/16/19 15:14 Heparin Sodium (Porcine) (Heparin 5000 units/ml) 5,000 units EVERY 12 HOURS SUBQ 02/14/19 21:00 03/16/19 20:59 02/16/19 20:34 Insulin Aspart (NovoLOG) BEFORE MEALS AND HS SUBQ 02/14/19 16:30 03/16/19 16:29 02/17/19 06:18 Levothyroxine Sodium (Synthroid) 150 mcg DAILY@0630 GT 02/15/19 06:30 03/17/19 06:29 02/17/19 06:17 Lorazepam (Ativan) 0.5 mg Q4H PRN GT For Anxiety 02/15/19 15:36 02/22/19 15:35 02/16/19 21:40 Minoxidil (Loniten) 2.5 mg Q12HR GT 02/14/19 21:00 03/16/19 20:59 02/16/19 20:33 Piperacillin Sod/ Tazobactam Sod 2.25 gm/Dextrose 55 ml @ 110 mls/hr Q8H IVPB 02/16/19 16:00 02/21/19 21:59 02/17/19 08:00 Sucralfate (Carafate) 1 gm FOUR TIMES A DAY GT 02/15/19 09:00 03/17/19 08:59 02/16/19 20:33 Subjective ROS Limited/Unobtainable: No Allergies: Coded Allergies: No Known Allergies (Unverified , 05/11/18) Objective Last 24 Hour Vital Signs Date Time Temp Pulse Resp B/P (MAP) Pulse Ox O2 Delivery O2 Flow Rate FiO2 02/18/19 08:13 137/64 02/18/19 08:13 70 137/64 02/18/19 08:00 96.6 70 22 137/64 (88) 96 02/18/19 08:00 62 02/18/19 08:00 10.0 50 02/18/19 08:00 Mechanical Ventilator 10.0 02/18/19 04:00 8.0 50 02/18/19 04:00 Venturi Mask 8.0 02/18/19 04:00 98.2 70 26 143/68 (93) 100 02/18/19 03:24 65 02/18/19 00:00 Venturi Mask 8.0 02/18/19 00:00 97.4 63 24 138/68 (91) 100 02/17/19 23:39 69 02/17/19 20:26 146/66 02/17/19 20:00 Venturi Mask 8.0 02/17/19 20:00 8.0 50 02/17/19 20:00 97.0 80 20 146/66 (92) 100 02/17/19 19:05 97 Venturi Mask 14.0 55 02/17/19 19:05 Venturi Mask 14.0 55 02/17/19 19:05 77 22 97 Venturi Mask 14.0 55 02/17/19 18:56 78 02/17/19 16:00 97.6 72 20 145/67 (93) 100 02/17/19 16:00 74 02/17/19 16:00 Venturi Mask 8.0 02/17/19 16:00 8.0 50 Intake and Output 02/17/19 02/18/19 19:00 07:00 Intake Total 1045 ml 290 ml Balance 1045 ml 290 ml Intake Free Water 240 ml 100 ml IV Total 220 ml 55 ml Tube Feeding 585 ml 135 ml # Bowel Movements 2 Laboratory Tests 02/18/19 03:35: White Blood Count 7.4, Red Blood Count 3.11L, Hemoglobin 9.8L, Hematocrit 30.9L , Mean Corpuscular Volume 100H, Mean Corpuscular Hemoglobin 31.7H, Mean Corpuscular Hemoglobin Concent 31.9L, Red Cell Distribution Width 15.9H, Platelet Count 203, Mean Platelet Volume 5.4L, Neutrophils (%) (Auto) 84.3H, Lymphocytes (%) (Auto) 5.3L, Monocytes (%) (Auto) 7.5, Eosinophils (%) (Auto) 1.9, Basophils (%) (Auto) 1.0, Sodium Level 130L, Potassium Level 4.4, Chloride Level 91L, Carbon Dioxide Level 31, Anion Gap 9, Blood Urea Nitrogen 75H, Creatinine 3.1H, Estimat Glomerular Filtration Rate , Glucose Level 114H, Calcium Level 9.0, Phosphorus Level 4.7, Total Bilirubin 0.7, Aspartate Amino Transf (AST/SGOT) 17, Alanine Aminotransferase (ALT/SGPT) 18, Alkaline Phosphatase 107, Total Protein 7.5, Albumin 2.8L, Globulin 4.7, Albumin/ Globulin Ratio 0.6L Current Medications Medications (Trade) Dose Ordered Sig/Konrad Route PRN Reason Start Time Stop Time Status Last Admin Dose Admin Acetaminophen (Tylenol) 650 mg Q4H PRN GT Mild Pain/Temp > 100.5 02/14/19 15:15 03/16/19 15:14 02/17/19 20:28 Albuterol Sulfate (Proventil) 2.5 mg Q6HRT PRN HHN Shortness of Breath 02/14/19 15:15 02/19/19 15:14 Amlodipine Besylate (Norvasc) 10 mg DAILY GT 02/15/19 09:00 03/17/19 08:59 02/18/19 08:13 Dextrose (Dextrose 50%) 25 ml Q30M PRN IV Hypoglycemia 02/14/19 15:15 03/16/19 15:14 Dextrose (Dextrose 50%) 50 ml Q30M PRN IV Hypoglycemia 02/14/19 15:15 03/16/19 15:14 Heparin Sodium (Porcine) (Heparin 5000 units/ml) 5,000 units EVERY 12 HOURS SUBQ 5/18/19 21:00 03/16/19 20:59 02/18/19 08:16 Heparin Sodium (Porcine) (Heparin Sod 1000 units/ml 10ml) 2,000 unit ONCE PRN IV HD 02/18/19 06:00 02/18/19 23:59 Insulin Aspart (NovoLOG) BEFORE MEALS AND HS SUBQ 02/14/19 16:30 03/16/19 16:29 02/17/19 20:30 Levothyroxine Sodium (Synthroid) 150 mcg DAILY@0630 GT 02/15/19 06:30 03/17/19 06:29 02/18/19 06:06 Lorazepam (Ativan) 0.5 mg Q4H PRN GT For Anxiety 02/15/19 15:36 02/22/19 15:35 02/17/19 20:27 Minoxidil (Loniten) 2.5 mg Q12HR GT 02/14/19 21:00 03/16/19 20:59 02/18/19 08:13 Ondansetron HCl (Zofran) 4 mg Q6H PRN IVP Nausea & Vomiting 02/17/19 23:15 03/19/19 23:14 02/18/19 00:08 Piperacillin Sod/ Tazobactam Sod 2.25 gm/Dextrose 55 ml @ 110 mls/hr Q8H IVPB 02/16/19 16:00 02/21/19 21:59 02/18/19 08:09 Sodium Chloride 1,000 ml @ 500 mls/hr Q2H PRN IVLG sbp<90 during hd 02/18/19 06:00 02/18/19 23:59 Sucralfate (Carafate) 1 gm FOUR TIMES A DAY GT 02/15/19 09:00 03/17/19 08:59 02/18/19 08:13 Wilmer Palacios MD February 18, 2019 12:04
[2019-02-18] MEDS: Acetaminophen 650mg/20.3ml GT PRN (14:06)
--- NOTE | 2019-02-18 14:43 | Nephrology Progress Note ---
Assessment/Plan Plan CHF --- HD MWF Pneumonia - IV Abx. Aspiration episodes - GI to advise Subjective Subjective More SOB. Alert. Aspirated last night. On HD now. Objective Objective Last 24 Hour Vital Signs Date Time Temp Pulse Resp B/P (MAP) Pulse Ox O2 Delivery O2 Flow Rate FiO2 02/18/19 12:12 61 02/18/19 12:00 96.8 61 26 129/57 (81) 97 02/18/19 12:00 8.0 40 02/18/19 12:00 Mechanical Ventilator 10.0 02/18/19 08:13 137/64 02/18/19 08:13 70 137/64 02/18/19 08:00 96.6 70 22 137/64 (88) 96 02/18/19 08:00 62 02/18/19 08:00 8.0 40 02/18/19 08:00 Mechanical Ventilator 10.0 02/18/19 04:00 8.0 50 02/18/19 04:00 Venturi Mask 8.0 02/18/19 04:00 98.2 70 26 143/68 (93) 100 02/18/19 03:24 65 02/18/19 00:00 Venturi Mask 8.0 02/18/19 00:00 97.4 63 24 138/68 (91) 100 02/17/19 23:39 69 02/17/19 20:26 146/66 02/17/19 20:00 Venturi Mask 8.0 02/17/19 20:00 8.0 50 02/17/19 20:00 97.0 80 20 146/66 (92) 100 02/17/19 19:05 97 Venturi Mask 14.0 55 02/17/19 19:05 Venturi Mask 14.0 55 02/17/19 19:05 77 22 97 Venturi Mask 14.0 55 02/17/19 18:56 78 02/17/19 16:00 97.6 72 20 145/67 (93) 100 02/17/19 16:00 74 02/17/19 16:00 Venturi Mask 8.0 02/17/19 16:00 8.0 50 Intake and Output 02/17/19 02/18/19 19:00 07:00 Intake Total 1045 ml 290 ml Balance 1045 ml 290 ml Intake Free Water 240 ml 100 ml IV Total 220 ml 55 ml Tube Feeding 585 ml 135 ml # Bowel Movements 2 Laboratory Tests 02/18/19 03:35: White Blood Count 7.4, Red Blood Count 3.11L, Hemoglobin 9.8L, Hematocrit 30.9L , Mean Corpuscular Volume 100H, Mean Corpuscular Hemoglobin 31.7H, Mean Corpuscular Hemoglobin Concent 31.9L, Red Cell Distribution Width 15.9H, Platelet Count 203, Mean Platelet Volume 5.4L, Neutrophils (%) (Auto) 84.3H, Lymphocytes (%) (Auto) 5.3L, Monocytes (%) (Auto) 7.5, Eosinophils (%) (Auto) 1.9, Basophils (%) (Auto) 1.0, Sodium Level 130L, Potassium Level 4.4, Chloride Level 91L, Carbon Dioxide Level 31, Anion Gap 9, Blood Urea Nitrogen 75H, Creatinine 3.1H, Estimat Glomerular Filtration Rate , Glucose Level 114H, Calcium Level 9.0, Phosphorus Level 4.7, Total Bilirubin 0.7, Aspartate Amino Transf (AST/SGOT) 17, Alanine Aminotransferase (ALT/SGPT) 18, Alkaline Phosphatase 107, Total Protein 7.5, Albumin 2.8L, Globulin 4.7, Albumin/ Globulin Ratio 0.6L Height (Feet): 5 Height (Inches): 4.00 Weight (Pounds): 139 Objective CV RR Lungs B ronchi + wheezes. Abd SNT. BS + E No CCE Raul Cannon MD February 18, 2019 14:43
[2019-02-18] MEDS ORDERED: Metoclopramide 10mg/2ml Inj IVP PRN (15:30)
[2019-02-18 16:00] VITALS: BP 114/50
--- NOTE | 2019-02-18 19:05 | NUR ---
NURSE NOTES: Pt report was given from Lisa SWAIN. Pt appears to be resting in bed with no distress noted. Pt is alert and oriented times 2, pupils are round and reactive to light and accommodating. Pt has a manager cardiac cath place, active and working displaying normal sinus rhythm. pt does not show and signs or symptoms of acute cardiac distress. Pt has a G tube able to flush and running nephro 1.8. no complications noted to site or tubing. Pt has a nasal canula delivering 6L O2 and saturating at 99%. Pt shows no signs or symptoms of acute respiratory distress at the moment. Pt has a R Wrist 22 G that is patent and able to flush with no complications noted. all safety precautions are taken. Such as bed is in lowest position, call light is within easy reach, bed alarm is active, bed rails are up times 3, brakes are active. Will continue plan of care.
--- NOTE | 2019-02-18 19:30 | Consultation ---
DATE OF CONSULTATION: 02/18/2019 CHIEF COMPLAINT: Coffee-grounds emesis, dysphagia, G-tube, and vomiting. HISTORY OF PRESENT ILLNESS: This is a very pleasant unfortunate 73-year-old female, noted for admission, is admitted to the hospital with possible aspiration pneumonia, had one episode of vomiting last night. The patient is also found to be anemic. GI consult was requested for evaluation. PAST MEDICAL HISTORY: 1. History of end-stage renal disease, on hemodialysis. 2. Type 2 diabetes. 3. Hypertension. 4. Organic brain syndrome. 5. Schizophrenia. 6. Hypothyroidism. 7. Dysphagia with G-tube. 8. Chronic anemia. MEDICATIONS: Please see medication reconciliation list. ALLERGIES: No known drug allergies. SOCIAL HISTORY: Currently lives in a [facility]. No history of tobacco, alcohol, or drug abuse. FAMILY HISTORY: Noncontributory. REVIEW OF SYSTEMS: Limited. PHYSICAL EXAMINATION: VITAL SIGNS: Temperature is 96.8, pulse 61, respirations 26, and blood pressure is 129/57. HEENT: Normocephalic and atraumatic. Mild pale conjunctivae. NECK: Supple. No evidence of obvious lymphadenopathy. CARDIOVASCULAR: Regular rate and rhythm. Plus S1 and S2. No obvious murmur. LUNGS: Diffuse breath sounds bilaterally. . ABDOMEN: Soft and nontender. G-tube in place. No rebound. No guarding. No peritoneal sign. EXTREMITIES: No cyanosis, no clubbing, no edema. LABORATORY DATA: White count of 7.4, hemoglobin 9.8, and platelet count is 203,000. ASSESSMENT AND PLAN: This is a 73-year-old female with vomiting, dysphagia, anemia, drop in hemoglobin and hematocrit since last admission. In last admission, hemoglobin was 11.4 on 01/29/2019 now is 9.8. So, it is relatively significant drop. Plan will be to order a stool for OB, do anemia workup, start the patient on Reglan 5 mg intravenous q.6., monitor for G-tube residual, increase the tube feeding as tolerated to a goal of 45 mL an hour, consider doing endoscopy for gastrointestinal evidence of GI bleeding if the stool OB comes back positive and the patient further drop in hemoglobin and hematocrit. Meanwhile, we will recommend the patient to be on PPI daily. I want to thank, Dr. Cannon, for this kind referral. Hiltonpatrick Taylor M.D. DR: MYRTLE JOB#: [id number] CC: Raul Cannon M.D.; Fax#: [phone]
--- NOTE | 2019-02-18 19:31 | NUR ---
HAND-OFF: Report given to homer carmona.
[2019-02-18 20:00] VITALS: BP 134/62
[2019-02-19] VITALS: BP 146/72
[2019-02-19 04:00] VITALS: BP 148/69
[2019-02-19 05:06] LABS: BASOPHILS % (AUTO) 1.2 % (0.0-2.0); HEMATOCRIT 29.8 % (37.0-47.0); HEMOGLOBIN 9.6 G/DL (12.0-16.0); LYMPHOCYTES % (AUTO) 6.8 % (20.0-45.0); MEAN CORPUSCULAR VOLUME 100 FL (80-99); MONOCYTES % (AUTO) 7.4 % (1.0-10.0); NEUTROPHILS % (AUTO) 81.6 % (45.0-75.0); PLATELET COUNT 178 K/UL (150-450); RED BLOOD COUNT 2.98 M/UL (4.20-5.40); WHITE BLOOD COUNT 6.1 K/UL (4.8-10.8)
[2019-02-19 05:24] LABS: ALANINE AMINOTRANSFERASE 15 U/L (12-78); ALBUMIN 2.8 G/DL (3.4-5.0); ALBUMIN/GLOBULIN RATIO 0.6 (1.0-2.7); ALKALINE PHOSPHATASE 106 U/L (46-116); AMYLASE 54 U/L (25-115); ANION GAP 9 mmol/L (5-15); ASPARTATE AMINO TRANSFERASE 18 U/L (15-37); BILIRUBIN,TOTAL 0.7 MG/DL (0.2-1.0); BLOOD UREA NITROGEN 48 mg/dL (7-18); CALCIUM 9.3 MG/DL (8.5-10.1); CARBON DIOXIDE 31 MMOL/L (21-32); CHLORIDE 93 MMOL/L (98-107); CREATININE 2.5 MG/DL (0.55-1.30); POTASSIUM 3.8 MMOL/L (3.5-5.1); SODIUM 133 MMOL/L (136-145)
[2019-02-19 05:34] LABS: % IRON SATURATION 38 % (15-50); IRON 47 ug/dL (50-175); TOTAL IRON BINDING CAPACITY 124 ug/dL (250-450)
[2019-02-19] MEDS: NovoLOG Insulin Flexpen SUBQ SCH ×4 (05:38→20:05)
--- NOTE | 2019-02-19 07:12 | NUR ---
NURSE NOTES: received patient report from homer carmona. patient is on bed awake. not in acute distress. with mittens on on bilateral hands. no arrythmias reported during the night. will follow plan of care.
--- NOTE | 2019-02-19 07:20 | NUR ---
HAND-OFF: Report given to Lisa SWAIN.
[2019-02-19 08:00] VITALS: BP 153/71
[2019-02-19] MEDS: Sucralfate 1gm tab GT SCH ×4 (08:06→20:04)
[2019-02-19] MEDS: Piperacillin/Tazobactam 2.25 GM in D5W 55 ML IVPB SCH ×3 (08:06→23:17)
[2019-02-19] MEDS: Minoxidil 2.5mg tab GT SCH ×2 (08:07→20:04)
[2019-02-19] MEDS: Heparin 5000 units/ml inj SUBQ SCH ×2 (08:09→20:06)
--- NOTE | 2019-02-19 08:48 | Pulmonology Progress Note ---
Assessment/Plan Assessment/Plan 1. acute respiratory failure 2. End-stage renal failure, on dialysis. 3. COPD. 4. Schizophrenia. 5. Pulmonary edema, due to overload 6. Anemia of chronic kidney disease. 7. Sick sinus syndrome. 8. diabetes mellitus. PLAN acid base adequate BIPAP PRN titrate oxygen and reduce as able HD with UF monitor fluid status and imaging- ordered for today continue supportive care follow up fluid status somewhat improved and hope to proceed with dc planning impression, plan, and exam edited and reviewed in detail care discussed with RN Subjective ROS Limited/Unobtainable: Yes Allergies: Coded Allergies: No Known Allergies (Unverified , 05/11/18) Subjective care noted on oxygen awake no distress Objective Last 24 Hour Vital Signs Date Time Temp Pulse Resp B/P (MAP) Pulse Ox O2 Delivery O2 Flow Rate FiO2 02/19/19 08:07 153/71 02/19/19 08:07 72 153/71 02/19/19 08:00 97.3 72 21 153/71 (98) 98 02/19/19 08:00 6.0 02/19/19 04:00 6.0 02/19/19 04:00 97.9 70 19 148/69 (95) 100 02/19/19 04:00 Nasal Cannula 6.0 02/19/19 04:00 72 02/19/19 00:00 Nasal Cannula 6.0 02/19/19 00:00 60 02/19/19 00:00 98.0 68 21 146/72 (96) 100 02/19/19 00:00 6.0 02/18/19 21:01 134/62 02/18/19 21:00 6.0 02/18/19 20:00 63 02/18/19 20:00 6.0 02/18/19 20:00 Nasal Cannula 2.0 28 02/18/19 20:00 Nasal Cannula 6.0 02/18/19 20:00 66 20 94 Nasal Cannula 2.0 28 02/18/19 20:00 98.6 65 20 134/62 (86) 100 02/18/19 20:00 94 Nasal Cannula 2.0 28 02/18/19 16:00 6.0 02/18/19 16:00 64 02/18/19 16:00 97.2 65 22 114/50 (71) 100 02/18/19 16:00 Mechanical Ventilator 10.0 02/18/19 14:36 96.8 02/18/19 12:12 61 02/18/19 12:00 96.8 61 26 129/57 (81) 97 02/18/19 12:00 8.0 40 02/18/19 12:00 Mechanical Ventilator 10.0 Intake and Output 02/18/19 02/19/19 19:00 07:00 Intake Total 510 ml 575 ml Balance 510 ml 575 ml Intake Free Water 70 ml 200 ml IV Total 220 ml 55 ml Tube Feeding 220 ml 320 ml Blood Product 0 ml # Voids 3 Objective WDWN on oxygen reduced breath sounds bilaterally without rhonchi or wheeze [id number] without MRG NABS nontender no HSM no CC mild edema nonfocal reviewed and edited Laboratory Tests 02/18/19 16:00: Stool Occult Blood [Pending] 02/19/19 03:35: White Blood Count 6.1, Red Blood Count 2.98L, Hemoglobin 9.6L, Hematocrit 29.8L , Mean Corpuscular Volume 100H, Mean Corpuscular Hemoglobin 32.2H, Mean Corpuscular Hemoglobin Concent 32.2, Red Cell Distribution Width 16.0H, Platelet Count 178, Mean Platelet Volume 6.3L, Neutrophils (%) (Auto) 81.6H, Lymphocytes (%) (Auto) 6.8L, Monocytes (%) (Auto) 7.4, Eosinophils (%) (Auto) 3.0, Basophils (%) (Auto) 1.2, Sodium Level 133L, Potassium Level 3.8, Chloride Level 93L, Carbon Dioxide Level 31, Anion Gap 9, Blood Urea Nitrogen 48H, Creatinine 2.5H, Estimat Glomerular Filtration Rate , Glucose Level 147H, Calcium Level 9.3, Iron Level 47L, Total Iron Binding Capacity 124L, Percent Iron Saturation 38, Unsaturated Iron Binding 77L, Total Bilirubin 0.7, Aspartate Amino Transf (AST/SGOT) 18, Alanine Aminotransferase (ALT/SGPT) 15, Alkaline Phosphatase 106, Total Protein 7.7, Albumin 2.8L, Globulin 4.9, Albumin /Globulin Ratio 0.6L, Amylase Level 54, Lipase 307 Current Medications Medications (Trade) Dose Ordered Sig/Konrad Route PRN Reason Start Time Stop Time Status Last Admin Dose Admin Acetaminophen (Tylenol) 650 mg Q4H PRN GT Mild Pain/Temp > 100.5 02/14/19 15:15 03/16/19 15:14 02/18/19 14:06 Albuterol Sulfate (Proventil) 2.5 mg Q6HRT PRN HHN Shortness of Breath 02/14/19 15:15 02/19/19 15:14 Amlodipine Besylate (Norvasc) 10 mg DAILY GT 02/15/19 09:00 03/17/19 08:59 02/19/19 08:07 Dextrose (Dextrose 50%) 25 ml Q30M PRN IV Hypoglycemia 02/14/19 15:15 03/16/19 15:14 Dextrose (Dextrose 50%) 50 ml Q30M PRN IV Hypoglycemia 02/14/19 15:15 03/16/19 15:14 Heparin Sodium (Porcine) (Heparin 5000 units/ml) 5,000 units EVERY 12 HOURS SUBQ 02/14/19 21:00 03/16/19 20:59 02/19/19 08:09 Insulin Aspart (NovoLOG) BEFORE MEALS AND HS SUBQ 02/14/19 16:30 03/16/19 16:29 02/19/19 05:38 Lansoprazole (Prevacid) 30 mg DAILY GT 02/19/19 09:00 03/21/19 08:59 02/19/19 08:06 Levothyroxine Sodium (Synthroid) 150 mcg DAILY@0630 GT 02/15/19 06:30 03/17/19 06:29 02/19/19 05:34 Lorazepam (Ativan) 0.5 mg Q4H PRN GT For Anxiety 02/15/19 15:36 02/22/19 15:35 02/17/19 20:27 Metoclopramide HCl (Reglan) 5 mg Q6H PRN IVP Nausea & Vomiting 02/18/19 15:30 03/20/19 15:29 Minoxidil (Loniten) 2.5 mg Q12HR GT 02/14/19 21:00 03/16/19 20:59 02/19/19 08:07 Ondansetron HCl (Zofran) 4 mg Q6H PRN IVP Nausea & Vomiting 02/17/19 23:15 03/19/19 23:14 02/18/19 00:08 Piperacillin Sod/ Tazobactam Sod 2.25 gm/Dextrose 55 ml @ 110 mls/hr Q8H IVPB 02/16/19 16:00 02/21/19 21:59 02/19/19 08:06 Sucralfate (Carafate) 1 gm FOUR TIMES A DAY GT 02/15/19 09:00 03/17/19 08:59 02/19/19 08:06 Jac Ramirez MD February 19, 2019 08:48
--- NOTE | 2019-02-19 10:40 | GI Progress Note ---
Assessment/Plan Problems: (1) Anemia ICD Codes: D64.9 - Anemia, unspecified SNOMED: 671111772 (2) Respiratory failure ICD Codes: J96.90 - Respiratory failure, unspecified, unspecified whether with hypoxia or hypercapnia SNOMED: 507842883 Qualifiers: Qualified Codes: J96.01 - Acute respiratory failure with hypoxia; J96.02 - Acute respiratory failure with hypercapnia (3) End stage renal disease on dialysis ICD Codes: N18.6 - End stage renal disease; Z99.2 - Dependence on renal dialysis SNOMED: 244183330 Status: unchanged Status Narrative Discussed with Dr. Taylor Assessment/Plan Macrocytic anemia OB stool positive, stable H&H s/p EGD colonoscopy in Oct 2018 >> esophageal ulcer, 2 colon polyps hold endoscopy at this time PRN transfusions PPI, add Carafate Reglan ATC GTFs per RD GT site care follow labs The patient was seen and examined at bedside and all new and available data was reviewed in the patients chart. I agree with the above findings, impression and plan. (Patient seen earlier today. Signature stamp does not reflect patient encounter time.). - Hilton Taylor MD Subjective Subjective Limited Objective Last 24 Hour Vital Signs Date Time Temp Pulse Resp B/P (MAP) Pulse Ox O2 Delivery O2 Flow Rate FiO2 02/19/19 09:56 75 20 98 Nasal Cannula 2.0 28 02/19/19 09:56 98 Nasal Cannula 2.0 28 02/19/19 09:56 Nasal Cannula 2.0 28 02/19/19 08:07 153/71 02/19/19 08:07 72 153/71 02/19/19 08:00 Nasal Cannula 6.0 02/19/19 08:00 97.3 72 21 153/71 (98) 98 02/19/19 08:00 6.0 02/19/19 07:29 70 02/19/19 04:00 6.0 02/19/19 04:00 97.9 70 19 148/69 (95) 100 02/19/19 04:00 Nasal Cannula 6.0 02/19/19 04:00 72 02/19/19 00:00 Nasal Cannula 6.0 02/19/19 00:00 60 02/19/19 00:00 98.0 68 21 146/72 (96) 100 02/19/19 00:00 6.0 02/18/19 21:01 134/62 02/18/19 21:00 6.0 02/18/19 20:00 63 02/18/19 20:00 6.0 02/18/19 20:00 Nasal Cannula 2.0 28 02/18/19 20:00 Nasal Cannula 6.0 02/18/19 20:00 66 20 94 Nasal Cannula 2.0 28 02/18/19 20:00 98.6 65 20 134/62 (86) 100 02/18/19 20:00 94 Nasal Cannula 2.0 28 02/18/19 16:00 6.0 02/18/19 16:00 64 02/18/19 16:00 97.2 65 22 114/50 (71) 100 02/18/19 16:00 Mechanical Ventilator 10.0 02/18/19 14:36 96.8 02/18/19 12:12 61 02/18/19 12:00 96.8 61 26 129/57 (81) 97 02/18/19 12:00 8.0 40 02/18/19 12:00 Mechanical Ventilator 10.0 Intake and Output 02/18/19 02/19/19 19:00 07:00 Intake Total 510 ml 575 ml Balance 510 ml 575 ml Intake Free Water 70 ml 200 ml IV Total 220 ml 55 ml Tube Feeding 220 ml 320 ml Blood Product 0 ml # Voids 3 Laboratory Tests Test 02/18/19 16:00 02/19/19 03:35 Stool Occult Blood Positive (NEGATIVE) White Blood Count 6.1 K/UL (4.8-10.8) Red Blood Count 2.98 M/UL (4.20-5.40) L Hemoglobin 9.6 G/DL (12.0-16.0) L Hematocrit 29.8 % (37.0-47.0) L Mean Corpuscular Volume 100 FL (80-99) H Mean Corpuscular Hemoglobin 32.2 PG (27.0-31.0) H Mean Corpuscular Hemoglobin Concent 32.2 G/DL (32.0-36.0) Red Cell Distribution Width 16.0 % (11.6-14.8) H Platelet Count 178 K/UL (150-450) Mean Platelet Volume 6.3 FL (6.5-10.1) L Neutrophils (%) (Auto) 81.6 % (45.0-75.0) H Lymphocytes (%) (Auto) 6.8 % (20.0-45.0) L Monocytes (%) (Auto) 7.4 % (1.0-10.0) Eosinophils (%) (Auto) 3.0 % (0.0-3.0) Basophils (%) (Auto) 1.2 % (0.0-2.0) Sodium Level 133 MMOL/L (136-145) L Potassium Level 3.8 MMOL/L (3.5-5.1) Chloride Level 93 MMOL/L (98-107) L Carbon Dioxide Level 31 MMOL/L (21-32) Anion Gap 9 mmol/L (5-15) Blood Urea Nitrogen 48 mg/dL (7-18) H Creatinine 2.5 MG/DL (0.55-1.30) H Estimat Glomerular Filtration Rate mL/min (>60) Glucose Level 147 MG/DL (74-106) H Calcium Level 9.3 MG/DL (8.5-10.1) Iron Level 47 ug/dL (50-175) L Total Iron Binding Capacity 124 ug/dL (250-450) L Percent Iron Saturation 38 % (15-50) Unsaturated Iron Binding 77 ug/dL (112-346) L Total Bilirubin 0.7 MG/DL (0.2-1.0) Aspartate Amino Transf (AST/SGOT) 18 U/L (15-37) Alanine Aminotransferase (ALT/SGPT) 15 U/L (12-78) Alkaline Phosphatase 106 U/L (46-116) Total Protein 7.7 G/DL (6.4-8.2) Albumin 2.8 G/DL (3.4-5.0) L Globulin 4.9 g/dL Albumin/Globulin Ratio 0.6 (1.0-2.7) L Amylase Level 54 U/L (25-115) Lipase 307 U/L (73-393) Height (Feet): 5 Height (Inches): 4.00 Weight (Pounds): 132 General Appearance: no apparent distress Cardiovascular: normal rate Abdominal Exam: GT site - Clean dry and intact Janene Ellis NP February 19, 2019 10:40
[2019-02-19 12:00] VITALS: BP 142/75
--- NOTE | 2019-02-19 12:11 | Diagnostic Imaging Report ---
Indication: Dyspnea Comparison: 02/14/2019 A single view chest radiograph was obtained. Findings: Pulmonary vascular congestion and alveolar and interstitial opacities demonstrated and appearing worse compared to last exam. Heart is enlarged. There is evidence of bilateral pleural effusions. IMPRESSION: Moderate to severe worsening pulmonary edema.
--- NOTE | 2019-02-19 12:55 | Nephrology Progress Note ---
Assessment/Plan Plan CHF --- HD MWF Pneumonia - IV Abx. Aspiration episodes - GI to advise HD tomorrow with increased UF! Repeat CXR shows worsening CHF!!! Subjective Subjective Still SOB. Alert. TF rate lowered. Objective Objective Last 24 Hour Vital Signs Date Time Temp Pulse Resp B/P (MAP) Pulse Ox O2 Delivery O2 Flow Rate FiO2 02/19/19 12:00 Nasal Cannula 6.0 02/19/19 12:00 4.0 02/19/19 11:53 76 02/19/19 09:56 75 20 98 Nasal Cannula 2.0 28 02/19/19 09:56 98 Nasal Cannula 2.0 28 02/19/19 09:56 Nasal Cannula 2.0 28 02/19/19 08:07 153/71 02/19/19 08:07 72 153/71 02/19/19 08:00 Nasal Cannula 6.0 02/19/19 08:00 97.3 72 21 153/71 (98) 98 02/19/19 08:00 6.0 02/19/19 07:29 70 02/19/19 04:00 6.0 02/19/19 04:00 97.9 70 19 148/69 (95) 100 02/19/19 04:00 Nasal Cannula 6.0 02/19/19 04:00 72 02/19/19 00:00 Nasal Cannula 6.0 02/19/19 00:00 60 02/19/19 00:00 98.0 68 21 146/72 (96) 100 02/19/19 00:00 6.0 02/18/19 21:01 134/62 02/18/19 21:00 6.0 02/18/19 20:00 63 02/18/19 20:00 6.0 02/18/19 20:00 Nasal Cannula 2.0 28 02/18/19 20:00 Nasal Cannula 6.0 02/18/19 20:00 66 20 94 Nasal Cannula 2.0 28 02/18/19 20:00 98.6 65 20 134/62 (86) 100 02/18/19 20:00 94 Nasal Cannula 2.0 28 02/18/19 16:00 6.0 02/18/19 16:00 64 02/18/19 16:00 97.2 65 22 114/50 (71) 100 02/18/19 16:00 Mechanical Ventilator 10.0 02/18/19 14:36 96.8 Intake and Output 02/18/19 02/19/19 19:00 07:00 Intake Total 510 ml 575 ml Balance 510 ml 575 ml Intake Free Water 70 ml 200 ml IV Total 220 ml 55 ml Tube Feeding 220 ml 320 ml Blood Product 0 ml # Voids 3 Laboratory Tests 02/18/19 16:00: Stool Occult Blood Positive 02/19/19 03:35: White Blood Count 6.1, Red Blood Count 2.98L, Hemoglobin 9.6L, Hematocrit 29.8L , Mean Corpuscular Volume 100H, Mean Corpuscular Hemoglobin 32.2H, Mean Corpuscular Hemoglobin Concent 32.2, Red Cell Distribution Width 16.0H, Platelet Count 178, Mean Platelet Volume 6.3L, Neutrophils (%) (Auto) 81.6H, Lymphocytes (%) (Auto) 6.8L, Monocytes (%) (Auto) 7.4, Eosinophils (%) (Auto) 3.0, Basophils (%) (Auto) 1.2, Sodium Level 133L, Potassium Level 3.8, Chloride Level 93L, Carbon Dioxide Level 31, Anion Gap 9, Blood Urea Nitrogen 48H, Creatinine 2.5H, Estimat Glomerular Filtration Rate , Glucose Level 147H, Calcium Level 9.3, Iron Level 47L, Total Iron Binding Capacity 124L, Percent Iron Saturation 38, Unsaturated Iron Binding 77L, Total Bilirubin 0.7, Aspartate Amino Transf (AST/SGOT) 18, Alanine Aminotransferase (ALT/SGPT) 15, Alkaline Phosphatase 106, Total Protein 7.7, Albumin 2.8L, Globulin 4.9, Albumin /Globulin Ratio 0.6L, Amylase Level 54, Lipase 307 Height (Feet): 5 Height (Inches): 4.00 Weight (Pounds): 132 Objective CV RR Lungs B ronchi + wheezes. Abd SNT. BS + E No CCE Raul Cannon MD February 19, 2019 12:55
--- NOTE | 2019-02-19 14:09 | NUR ---
RD ASSESSMENT & RECOMMENDATIONS SEE CARE ACTIVITY FOR COMPLETE ASSESSMENT DAILY ESTIMATED NEEDS: Needs based on ESRD/ HD, UNDERWEIGHT, WOUND / 52.7kg 30-35 kcals/kg 5684-5202 total kcals 1.25-1.8 g protein/kg 66-95 g total protein Fluid per MD, on HD mL/kg . 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 * Increased kcal/prot needs R/T renal dysfunction, ESRD, wound healing, underweight status as evidenced by pt on HD, admitted w/ sacral partial thickness wound per marble setter, low BMI per guidelines, pt @ 89% IBW. CURRENT TF:Nepro @ 45ml/hr x 22 hrs ENTERAL NUTRITION RECOMMENDATIONS: Nepro @ 45ml/hr x 22 hrs to provide 990ml, 1782kcal, 80g prot, 720ml free water * Rec to increase TF 5ml q 4-6 hrs as tolerated to goal rate * Hold 1 hr before and after Synthroid med * HOB over 30 degrees/ water flush per MD ADDITIONAL RECOMMENDATIONS: * Per SNF record: HT=66", EK=[id number] (02/09/19) -> rec calibrated bedscale wt. Current bedscale reads 63.6kg (140lbs) * Obtain dry wt post HD * F/UP w/ WC eval for sacral wound (rec to add Zeke 1pkt BID) * Monitor lytes - ESRD dx .
[2019-02-19 16:00] VITALS: BP 142/73
[2019-02-19] MEDS ORDERED: Sucralfate 1gm tab ORAL SCH (18:00)
--- NOTE | 2019-02-19 19:15 | NUR ---
HAND-OFF: Report given to roxaan carmona.
--- NOTE | 2019-02-19 19:33 | NUR ---
NURSE NOTES: Received report from Lisa RN, pt. in bed with eyes open- alert to name- no signs or symptoms of acute cardiac or respiratory distress noted, limehouse worker on, bed in lowest position and call light within easy reach, bed alarm on, side rails up x's3 and safety brakes engaged, pt. appears to be resting comfortably, G tube intact and running nephro at 30cc/hr- goal is at 45cc/hr- no residual noted, comfort measures provided, and all needs attended to, Rt. wrist 22G IV intact and patent- SL, safety measures continued, will continue with plan of care.
[2019-02-19 20:00] VITALS: BP 150/64
[2019-02-20] VITALS (7 sets, daily range): BP systolic 138–153; BP diastolic 54–80
[2019-02-20] MEDS: LORazepam 0.5mg tab GT PRN ×2 (00:25→18:44)
[2019-02-20 05:23] LABS: BASOPHILS % (AUTO) 0.9 % (0.0-2.0); EOSINOPHILS % (AUTO) 5.2 % (0.0-3.0); HEMATOCRIT 27.1 % (37.0-47.0); HEMOGLOBIN 8.9 G/DL (12.0-16.0); MEAN CORPUSCULAR VOLUME 99 FL (80-99); MONOCYTES % (AUTO) 11.1 % (1.0-10.0); NEUTROPHILS % (AUTO) 69.8 % (45.0-75.0); PLATELET COUNT 175 K/UL (150-450); RED BLOOD COUNT 2.74 M/UL (4.20-5.40); RED CELL DISTRIBUTION WIDTH 15.6 % (11.6-14.8); WHITE BLOOD COUNT 5.1 K/UL (4.8-10.8)
[2019-02-20 05:26] LABS: ANION GAP 6 mmol/L (5-15); CARBON DIOXIDE 31 MMOL/L (21-32); CHLORIDE 92 MMOL/L (98-107); CREATININE 3.1 MG/DL (0.55-1.30); PHOSPHORUS 4.8 MG/DL (2.5-4.9); POTASSIUM 3.6 MMOL/L (3.5-5.1); SODIUM 129 MMOL/L (136-145)
[2019-02-20 05:35] LABS: BLOOD UREA NITROGEN 69 mg/dL (7-18)
[2019-02-20] MEDS: NovoLOG Insulin Flexpen SUBQ SCH ×2 (05:37→17:45)
[2019-02-20] MEDS ORDERED: Heparin Sod 1000 units/ml 10ml IV PRN ×2 (06:00→17:45)
--- NOTE | 2019-02-20 07:30 | NUR ---
HAND-OFF: Report given to Melissa RN, pt. remains stable and no signs of distress noted.
--- NOTE | 2019-02-20 07:31 | NUR ---
NURSE NOTES: Received patient in bed. Awake, in no apparent distress. On continuous GTF. No respiratory distress. Contact isolation observed. Will continue plan of care.
[2019-02-20] MEDS: Piperacillin/Tazobactam 2.25 GM in D5W 55 ML IVPB SCH ×3 (07:47→23:23)
[2019-02-20] MEDS: Sucralfate 1gm tab GT SCH ×4 (08:25→20:31)
[2019-02-20] MEDS: Heparin 5000 units/ml inj SUBQ SCH ×2 (08:28→20:32)
[2019-02-20] MEDS: Minoxidil 2.5mg tab GT SCH ×2 (08:29→20:29)
--- NOTE | 2019-02-20 09:31 | GI Progress Note ---
Assessment/Plan Problems: (1) Anemia ICD Codes: D64.9 - Anemia, unspecified SNOMED: 123243458 (2) Respiratory failure ICD Codes: J96.90 - Respiratory failure, unspecified, unspecified whether with hypoxia or hypercapnia SNOMED: 863540725 Qualifiers: Qualified Codes: J96.01 - Acute respiratory failure with hypoxia; J96.02 - Acute respiratory failure with hypercapnia (3) End stage renal disease on dialysis ICD Codes: N18.6 - End stage renal disease; Z99.2 - Dependence on renal dialysis SNOMED: 048309987 Status: unchanged Status Narrative Discussed with Dr. Taylor. Assessment/Plan Macrocytic anemia OB stool positive, stable H&H s/p EGD colonoscopy in Oct 2018 >> esophageal ulcer, 2 colon polyps hold endoscopy at this time PRN transfusions PPI + Carafate Reglan ATC GTFs per RD GT site care follow labs The patient was seen and examined at bedside and all new and available data was reviewed in the patients chart. I agree with the above findings, impression and plan. (Patient seen earlier today. Signature stamp does not reflect patient encounter time.). - Hilton Taylor MD Subjective Subjective Limited Objective Last 24 Hour Vital Signs Date Time Temp Pulse Resp B/P (MAP) Pulse Ox O2 Delivery O2 Flow Rate FiO2 02/20/19 08:30 62 138/54 02/20/19 08:29 138/54 02/20/19 08:00 97.0 62 21 138/54 (82) 96 02/20/19 08:00 Nasal Cannula 4.0 02/20/19 07:20 65 02/20/19 07:03 Nasal Cannula 4.0 36 02/20/19 07:03 100 Nasal Cannula 4.0 36 02/20/19 04:00 4.0 02/20/19 04:00 62 02/20/19 04:00 98.1 65 18 150/64 (92) 98 02/20/19 04:00 Nasal Cannula 6.0 02/20/19 00:00 97.8 66 20 148/74 (98) 97 02/20/19 00:00 4.0 02/20/19 00:00 Nasal Cannula 6.0 02/20/19 00:00 64 02/19/19 20:04 150/64 02/19/19 20:00 68 02/19/19 20:00 4.0 02/19/19 20:00 Nasal Cannula 6.0 02/19/19 20:00 97.6 67 20 150/64 (92) 96 02/19/19 16:00 Nasal Cannula 6.0 02/19/19 16:00 4.0 02/19/19 16:00 63 02/19/19 16:00 97.0 71 20 142/73 (96) 95 02/19/19 12:00 Nasal Cannula 6.0 02/19/19 12:00 4.0 02/19/19 12:00 97.5 74 20 142/75 (97) 94 02/19/19 11:53 76 02/19/19 09:56 75 20 98 Nasal Cannula 2.0 28 02/19/19 09:56 98 Nasal Cannula 2.0 28 02/19/19 09:56 Nasal Cannula 2.0 28 Intake and Output 02/19/19 02/20/19 18:59 06:59 Intake Total 570 ml 622 ml Balance 570 ml 622 ml Intake Free Water 95 ml 180 ml IV Total 110 ml 110 ml Tube Feeding 365 ml 332 ml Blood Product 0 ml # Voids 1 # Bowel Movements 1 4 Laboratory Tests Test 02/20/19 03:10 White Blood Count 5.1 K/UL (4.8-10.8) Red Blood Count 2.74 M/UL (4.20-5.40) L Hemoglobin 8.9 G/DL (12.0-16.0) L Hematocrit 27.1 % (37.0-47.0) L Mean Corpuscular Volume 99 FL (80-99) Mean Corpuscular Hemoglobin 32.5 PG (27.0-31.0) H Mean Corpuscular Hemoglobin Concent 32.9 G/DL (32.0-36.0) Red Cell Distribution Width 15.6 % (11.6-14.8) H Platelet Count 175 K/UL (150-450) Mean Platelet Volume 6.2 FL (6.5-10.1) L Neutrophils (%) (Auto) 69.8 % (45.0-75.0) Lymphocytes (%) (Auto) 13.0 % (20.0-45.0) L Monocytes (%) (Auto) 11.1 % (1.0-10.0) H Eosinophils (%) (Auto) 5.2 % (0.0-3.0) H Basophils (%) (Auto) 0.9 % (0.0-2.0) Sodium Level 129 MMOL/L (136-145) L Potassium Level 3.6 MMOL/L (3.5-5.1) Chloride Level 92 MMOL/L (98-107) L Carbon Dioxide Level 31 MMOL/L (21-32) Anion Gap 6 mmol/L (5-15) Blood Urea Nitrogen 69 mg/dL (7-18) H Creatinine 3.1 MG/DL (0.55-1.30) H Estimat Glomerular Filtration Rate mL/min (>60) Glucose Level 132 MG/DL (74-106) H Calcium Level 9.0 MG/DL (8.5-10.1) Phosphorus Level 4.8 MG/DL (2.5-4.9) Height (Feet): 5 Height (Inches): 4.00 Weight (Pounds): 141 General Appearance: alert Cardiovascular: normal rate Respiratory/Chest: no respiratory distress Abdominal Exam: GT site - c/d/i Janene Ellis NP February 20, 2019 09:31
[2019-02-20] MEDS ORDERED: NovoLOG Insulin Flexpen SUBQ SCH (12:00)
--- NOTE | 2019-02-20 12:30 | NUR ---
NURSE NOTES: Called [facility], informed regarding dialysis order. Awaiting for call back for ETA.
--- NOTE | 2019-02-20 12:43 | Nephrology Progress Note ---
Assessment/Plan Plan CHF --- HD MWF- pending. Pneumonia - IV Abx. Aspiration episodes - GI to advise Repeat CXR shows worsening CHF!!! DC planning unresolved between [facility] to [facility]. Subjective Subjective Less SOB. Alert. TF rate lowered. Objective Objective Last 24 Hour Vital Signs Date Time Temp Pulse Resp B/P (MAP) Pulse Ox O2 Delivery O2 Flow Rate FiO2 02/20/19 12:00 97.2 68 18 146/65 (92) 100 02/20/19 12:00 Nasal Cannula 4.0 02/20/19 08:30 62 138/54 02/20/19 08:29 138/54 02/20/19 08:00 97.0 62 21 138/54 (82) 96 02/20/19 08:00 Nasal Cannula 4.0 02/20/19 07:20 65 02/20/19 07:03 Nasal Cannula 4.0 36 02/20/19 07:03 100 Nasal Cannula 4.0 36 02/20/19 04:00 4.0 02/20/19 04:00 62 02/20/19 04:00 98.1 65 18 150/64 (92) 98 02/20/19 04:00 Nasal Cannula 6.0 02/20/19 00:00 97.8 66 20 148/74 (98) 97 02/20/19 00:00 4.0 02/20/19 00:00 Nasal Cannula 6.0 02/20/19 00:00 64 02/19/19 20:04 150/64 02/19/19 20:00 68 02/19/19 20:00 4.0 02/19/19 20:00 Nasal Cannula 6.0 02/19/19 20:00 97.6 67 20 150/64 (92) 96 02/19/19 16:00 Nasal Cannula 6.0 02/19/19 16:00 4.0 02/19/19 16:00 63 02/19/19 16:00 97.0 71 20 142/73 (96) 95 Intake and Output 02/19/19 02/20/19 19:00 07:00 Intake Total 600 ml 612 ml Balance 600 ml 612 ml Intake Free Water 95 ml 180 ml IV Total 110 ml 110 ml Tube Feeding 395 ml 322 ml Blood Product 0 ml # Voids 1 # Bowel Movements 1 4 Laboratory Tests 02/20/19 03:10: White Blood Count 5.1, Red Blood Count 2.74L, Hemoglobin 8.9L, Hematocrit 27.1L , Mean Corpuscular Volume 99, Mean Corpuscular Hemoglobin 32.5H, Mean Corpuscular Hemoglobin Concent 32.9, Red Cell Distribution Width 15.6H, Platelet Count 175, Mean Platelet Volume 6.2L, Neutrophils (%) (Auto) 69.8, Lymphocytes (%) (Auto) 13.0L, Monocytes (%) (Auto) 11.1H, Eosinophils (%) (Auto ) 5.2H, Basophils (%) (Auto) 0.9, Sodium Level 129L, Potassium Level 3.6, Chloride Level 92L, Carbon Dioxide Level 31, Anion Gap 6, Blood Urea Nitrogen 69H, Creatinine 3.1H, Estimat Glomerular Filtration Rate , Glucose Level 132H, Calcium Level 9.0, Phosphorus Level 4.8 Height (Feet): 5 Height (Inches): 4.00 Weight (Pounds): 141 Objective CV RR Lungs B ronchi + wheezes. Abd SNT. BS + E No CCE Raul Cannon MD February 20, 2019 12:43
[2019-02-20] MEDS ORDERED: LANSOPRAZOLE30 MG GT (12:51)
--- NOTE | 2019-02-20 12:51 | NUR ---
NURSE NOTES: Dr. Cannon called and ordered to stop discharge order. Charge nurse and case management social worker made aware.
--- NOTE | 2019-02-20 14:00 | Pulmonology Progress Note ---
Assessment/Plan Assessment/Plan Pulmonary Progress Note Assessment/Plan 1. acute respiratory failure 2. End-stage renal failure, on dialysis. 3. COPD. 4. Schizophrenia. 5. Pulmonary edema, right pleural effusion due to overload 6. Anemia of chronic kidney disease. 7. Sick sinus syndrome. 8. diabetes mellitus. PLAN acid base adequate BIPAP PRN titrate oxygen and reduce as able HD with UF monitor fluid status and imaging- ordered for today continue supportive care follow up fluid status somewhat improved and hope to proceed with dc planning impression, plan, and exam edited and reviewed in detail care discussed with RN Subjective ROS Limited/Unobtainable: Yes Allergies: Coded Allergies: No Known Allergies Subjective care noted on oxygen awake no distress Objective Vital Signs Noted Objective WDWN on oxygen reduced breath sounds bilaterally without rhonchi or wheeze [id number] without MRG NABS nontender no HSM no CC mild edema nonfocal reviewed and edited Laboratory Tests 02/18/19 16:00: Stool Occult Blood [Pending] 02/19/19 03:35: White Blood Count 6.1, Red Blood Count 2.98L, Hemoglobin 9.6L, Hematocrit 29.8L , Mean Corpuscular Volume 100H, Mean Corpuscular Hemoglobin 32.2H, Mean Corpuscular Hemoglobin Concent 32.2, Red Cell Distribution Width 16.0H, Platelet Count 178, Mean Platelet Volume 6.3L, Neutrophils (%) (Auto) 81.6H, Lymphocytes (%) (Auto) 6.8L, Monocytes (%) (Auto) 7.4, Eosinophils (%) (Auto) 3.0, Basophils (%) (Auto) 1.2, Sodium Level 133L, Potassium Level 3.8, Chloride Level 93L, Carbon Dioxide Level 31, Anion Gap 9, Blood Urea Nitrogen 48H, Creatinine 2.5H, Estimat Glomerular Filtration Rate , Glucose Level 147H, Calcium Level 9.3, Iron Level 47L, Total Iron Binding Capacity 124L, Percent Iron Saturation 38, Unsaturated Iron Binding 77L, Total Bilirubin 0.7, Aspartate Amino Transf (AST/SGOT) 18, Alanine Aminotransferase (ALT/SGPT) 15, Alkaline Phosphatase 106, Total Protein 7.7, Albumin 2.8L, Globulin 4.9, Albumin /Globulin Ratio 0.6L, Amylase Level 54, Lipase 307 Current Medications Medications (Trade) Dose Ordered Sig/Konrad Route PRN Reason Start Time Stop Time Status Last Admin Dose Admin Acetaminophen (Tylenol) 650 mg Q4H PRN GT Mild Pain/Temp > 100.5 02/14/19 15:15 03/16/19 15:14 02/18/19 14:06 Albuterol Sulfate (Proventil) 2.5 mg Q6HRT PRN HHN Shortness of Breath 02/14/19 15:15 02/19/19 15:14 Amlodipine Besylate (Norvasc) 10 mg DAILY GT 02/15/19 09:00 03/17/19 08:59 02/19/19 08:07 Dextrose (Dextrose 50%) 25 ml Q30M PRN IV Hypoglycemia 02/14/19 15:15 03/16/19 15:14 Dextrose (Dextrose 50%) 50 ml Q30M PRN IV Hypoglycemia 02/14/19 15:15 03/16/19 15:14 Heparin Sodium (Porcine) (Heparin 5000 units/ml) 5,000 units EVERY 12 HOURS SUBQ 02/14/19 21:00 03/16/19 20:59 02/19/19 08:09 Insulin Aspart (NovoLOG) BEFORE MEALS AND HS SUBQ 02/14/19 16:30 03/16/19 16:29 02/19/19 05:38 Lansoprazole (Prevacid) 30 mg DAILY GT 02/19/19 09:00 03/21/19 08:59 02/19/19 08:06 Levothyroxine Sodium (Synthroid) 150 mcg DAILY@0630 GT 02/15/19 06:30 03/17/19 06:29 02/19/19 05:34 Lorazepam (Ativan) 0.5 mg Q4H PRN GT For Anxiety 02/15/19 15:36 02/22/19 15:35 02/17/19 20:27 Metoclopramide HCl (Reglan) 5 mg Q6H PRN IVP Nausea & Vomiting 02/18/19 15:30 03/20/19 15:29 Minoxidil (Loniten) 2.5 mg Q12HR GT 02/14/19 21:00 03/16/19 20:59 02/19/19 08:07 Ondansetron HCl (Zofran) 4 mg Q6H PRN IVP Nausea & Vomiting 02/17/19 23:15 03/19/19 23:14 02/18/19 00:08 Piperacillin Sod/ Tazobactam Sod 2.25 gm/Dextrose 55 ml @ 110 mls/hr Q8H IVPB 02/16/19 16:00 02/21/19 21:59 02/19/19 08:06 Sucralfate (Carafate) 1 gm FOUR TIMES A DAY GT 02/15/19 09:00 03/17/19 08:59 02/19/19 08:06 Subjective ROS Limited/Unobtainable: No Allergies: Coded Allergies: No Known Allergies (Unverified , 05/11/18) Objective Last 24 Hour Vital Signs Date Time Temp Pulse Resp B/P (MAP) Pulse Ox O2 Delivery O2 Flow Rate FiO2 02/20/19 12:00 97.2 68 18 146/65 (92) 100 02/20/19 12:00 Nasal Cannula 4.0 02/20/19 11:26 76 02/20/19 08:30 62 138/54 02/20/19 08:29 138/54 02/20/19 08:00 97.0 62 21 138/54 (82) 96 02/20/19 08:00 Nasal Cannula 4.0 02/20/19 07:20 65 02/20/19 07:03 Nasal Cannula 4.0 36 02/20/19 07:03 100 Nasal Cannula 4.0 36 02/20/19 04:00 4.0 02/20/19 04:00 62 02/20/19 04:00 98.1 65 18 150/64 (92) 98 02/20/19 04:00 Nasal Cannula 6.0 02/20/19 00:00 97.8 66 20 148/74 (98) 97 02/20/19 00:00 4.0 02/20/19 00:00 Nasal Cannula 6.0 02/20/19 00:00 64 02/19/19 20:04 150/64 02/19/19 20:00 68 02/19/19 20:00 4.0 02/19/19 20:00 Nasal Cannula 6.0 02/19/19 20:00 97.6 67 20 150/64 (92) 96 02/19/19 16:00 Nasal Cannula 6.0 02/19/19 16:00 4.0 02/19/19 16:00 63 02/19/19 16:00 97.0 71 20 142/73 (96) 95 Intake and Output 02/19/19 02/20/19 19:00 07:00 Intake Total 600 ml 612 ml Balance 600 ml 612 ml Intake Free Water 95 ml 180 ml IV Total 110 ml 110 ml Tube Feeding 395 ml 322 ml Blood Product 0 ml # Voids 1 # Bowel Movements 1 4 Laboratory Tests 02/20/19 03:10: White Blood Count 5.1, Red Blood Count 2.74L, Hemoglobin 8.9L, Hematocrit 27.1L , Mean Corpuscular Volume 99, Mean Corpuscular Hemoglobin 32.5H, Mean Corpuscular Hemoglobin Concent 32.9, Red Cell Distribution Width 15.6H, Platelet Count 175, Mean Platelet Volume 6.2L, Neutrophils (%) (Auto) 69.8, Lymphocytes (%) (Auto) 13.0L, Monocytes (%) (Auto) 11.1H, Eosinophils (%) (Auto ) 5.2H, Basophils (%) (Auto) 0.9, Sodium Level 129L, Potassium Level 3.6, Chloride Level 92L, Carbon Dioxide Level 31, Anion Gap 6, Blood Urea Nitrogen 69H, Creatinine 3.1H, Estimat Glomerular Filtration Rate , Glucose Level 132H, Calcium Level 9.0, Phosphorus Level 4.8 Current Medications Medications (Trade) Dose Ordered Sig/Konrad Route PRN Reason Start Time Stop Time Status Last Admin Dose Admin Acetaminophen (Tylenol) 650 mg Q4H PRN GT Mild Pain/Temp > 100.5 02/14/19 15:15 03/16/19 15:14 02/18/19 14:06 Amlodipine Besylate (Norvasc) 10 mg DAILY GT 02/15/19 09:00 03/17/19 08:59 02/19/19 08:07 Dextrose (Dextrose 50%) 25 ml Q30M PRN IV Hypoglycemia 02/14/19 15:15 03/16/19 15:14 Dextrose (Dextrose 50%) 50 ml Q30M PRN IV Hypoglycemia 02/14/19 15:15 03/16/19 15:14 Heparin Sodium (Porcine) (Heparin 5000 units/ml) 5,000 units EVERY 12 HOURS SUBQ 02/14/19 21:00 03/16/19 20:59 02/20/19 08:28 Heparin Sodium (Porcine) (Heparin Sod 1000 units/ml 10ml) 2,000 unit ONCE PRN IV HD USE 02/20/19 06:00 02/20/19 23:59 Insulin Aspart (NovoLOG) EVERY 6 HOURS SUBQ 02/20/19 12:00 03/16/19 16:29 02/20/19 12:42 Lansoprazole (Prevacid) 30 mg DAILY GT 02/19/19 09:00 03/21/19 08:59 02/20/19 08:25 Levothyroxine Sodium (Synthroid) 150 mcg DAILY@0630 GT 02/15/19 06:30 03/17/19 06:29 02/20/19 05:33 Lorazepam (Ativan) 0.5 mg Q4H PRN GT For Anxiety 02/15/19 15:36 02/22/19 15:35 02/20/19 00:25 Metoclopramide HCl (Reglan) 5 mg Q6H PRN IVP Nausea & Vomiting 02/18/19 15:30 03/20/19 15:29 Minoxidil (Loniten) 2.5 mg Q12HR GT 02/14/19 21:00 03/16/19 20:59 02/19/19 20:04 Ondansetron HCl (Zofran) 4 mg Q6H PRN IVP Nausea & Vomiting 02/17/19 23:15 03/19/19 23:14 02/18/19 00:08 Piperacillin Sod/ Tazobactam Sod 2.25 gm/Dextrose 55 ml @ 110 mls/hr Q8H IVPB 02/16/19 16:00 02/21/19 21:59 02/20/19 07:47 Sodium Chloride 1,000 ml @ 500 mls/hr Q2H PRN IVLG sbp<90 during hd 02/20/19 06:00 02/20/19 23:59 Sucralfate (Carafate) 1 gm FOUR TIMES A DAY GT 02/15/19 09:00 03/17/19 08:59 02/20/19 13:20 Wilmer Palacios MD February 20, 2019 14:00
--- NOTE | 2019-02-20 14:51 | NUR ---
OYSTER TONGERSET UP MECHANIC AUTOMATIC LINE SI:PNA VS: BP 146/65, P 62, T 97.0, RR 21, SpO2 100 on 4.0L NC RBC 2.74, H&H 8.9/27.1, Na 129, BUN 69, CR 3.1 CXR: Moderate to severe worsening pulmonary edema. IS:SUCRALFATE 1gm NOVOLOG SUBQ HEPARIN SUBQ PREVACID 30mg ZOSYN 55ml IVPB SYNTHROID 150mcg ATIVAN 0.5mg SDU STATUS
--- NOTE | 2019-02-20 15:13 | NUR ---
Program Review Director Chart reviewed; no SW needs or concerns identified at this time; Sw to follow further as needed. Patient is from [facility] and will return there upon discharge.
--- NOTE | 2019-02-20 15:17 | NUR ---
DISCHARGE PLANNING FAXED OVER REFERRAL TO [facility] SPOKE TO ESTELITA IN ADMISSIONS THEY WILL ACCEPT PT. WHEN DISCHARGED. Addendum: 02/20/19 at 1704 by Leonor Lowe LVN SPOKE WITH ESTELITA AGAIN AND HES ACCEPTING PATIENT IN HE ASKED IF PATIENT CAN BE SENT LATER TONIGHT SO THAT HE HAS TIME FOR THE MATTRESS TO ARRIVE.
--- NOTE | 2019-02-20 17:00 | NUR ---
TRANSFER TO FLOOR: Patient transferred to Telemetry, per Dr. Cannon. Report given to WILIAM Carr. Belongings and medications given to WILIAM Carr. Remains on nasal cannula at 4LPM. Uncooperative with care.
--- NOTE | 2019-02-20 17:05 | NUR ---
NURSE NOTES: Patient transferred from [facility]. Received report from WILIAM Herring. Patient is so agitated and try to pulling out all her tubing. Respiration non labored with 4 liter nasal cannula, However she keep pulling it out. IV infiltrated. will try to put another one.. Side rails up x2. Safety precaution observed. Bed in lowest position, alarm on and break engaged. Bed side table and bed alarm within reach. Will continue plan of care.
--- NOTE | 2019-02-20 17:30 | NUR ---
NURSE NOTES: Wound picture taken and uploaded.
--- NOTE | 2019-02-20 17:35 | NUR ---
NURSE NOTES: Charge nurse/Heather called [facility] dialysis again to inform regarding dialysis order today. Awaiting for call back for ETA.
--- NOTE | 2019-02-20 17:42 | NUR ---
NURSE NOTES: Paged Dr. Cannon to get the order for discharge.
[2019-02-20] MEDS ORDERED: Metoclopramide 10mg/2ml Inj IVP PRN (18:00)
--- NOTE | 2019-02-20 19:15 | NUR ---
NURSE NOTES: Received report from Lilly SWAIN, pt. in bed with eyes open- alert to name- no signs or symptoms of acute cardiac or respiratory distress noted, eap specialist on, bed in lowest position and call light within easy reach, bed alarm on, side rails up x's3 and safety brakes engaged, pt. appears to be resting comfortably, G tube intact and running nephro at 45cc/hr- no residual noted, comfort measures provided, and all needs attended to, RFA 22G IV intact and patent- SL, pt. has Hemodialysis nurse doing HD- pt. appears to be tolerating it well- B/P at 143/60, safety measures continued, will continue with plan of care.
--- NOTE | 2019-02-20 19:20 | NUR ---
HAND-OFF: Report given to WILIAM Montiel.
--- NOTE | 2019-02-20 22:15 | NUR ---
NURSE NOTES: patients hemodialysis is complete- per HD nurse 2.5L out- pt. appears to have tolerated HD well- no signs of distress noted- current b/p 133/72 and pulse 79- will continue to monitor pt. and with plan of care.
[2019-02-21] VITALS (7 sets, daily range): BP systolic 145–166; BP diastolic 61–91
[2019-02-21] MEDS: NovoLOG Insulin Flexpen SUBQ SCH ×5 (00:19→23:59)
[2019-02-21] MEDS: LORazepam 0.5mg tab GT PRN (02:57)
--- NOTE | 2019-02-21 07:09 | NUR ---
HAND-OFF: Report given to Bora RN- pt. remains stable and no signs of distress noted.
--- NOTE | 2019-02-21 07:10 | NUR ---
NURSE NOTES: Received report from WILIAM Montiel. Pt. is in bed, awake, alert to name and with eyes open. HOB at 40%. No signs or symptoms of acute cardiac or respiratory distress noted, night monitor on, bed in lowest position and call light within easy reach, bed alarm on, side rails up x's3 and safety brakes engaged. Pt. denies pain at this time. G tube is intact and running nephro at 45cc/hr. RFA 22G IV intact and patent- SL. Left AV fistula has positive bruit and thrill, with dressing dry and intact. Will continue with plan of care.
[2019-02-21 07:25] LABS: BASOPHILS % (AUTO) 0.8 % (0.0-2.0); EOSINOPHILS % (AUTO) 1.3 % (0.0-3.0); HEMATOCRIT 27.9 % (37.0-47.0); LYMPHOCYTES % (AUTO) 9.7 % (20.0-45.0); MEAN CORPUSCULAR VOLUME 99 FL (80-99); MONOCYTES % (AUTO) 8.7 % (1.0-10.0); NEUTROPHILS % (AUTO) 79.6 % (45.0-75.0); PLATELET COUNT 200 K/UL (150-450); RED BLOOD COUNT 2.83 M/UL (4.20-5.40); RED CELL DISTRIBUTION WIDTH 15.5 % (11.6-14.8); WHITE BLOOD COUNT 6.1 K/UL (4.8-10.8)
[2019-02-21 07:42] LABS: ANION GAP 11 mmol/L (5-15); BLOOD UREA NITROGEN 50 mg/dL (7-18); CALCIUM 9.4 MG/DL (8.5-10.1); CARBON DIOXIDE 28 MMOL/L (21-32); CHLORIDE 94 MMOL/L (98-107); CREATININE 2.4 MG/DL (0.55-1.30); POTASSIUM 3.6 MMOL/L (3.5-5.1); SODIUM 133 MMOL/L (136-145)
[2019-02-21] MEDS: Piperacillin/Tazobactam 2.25 GM in D5W 55 ML IVPB SCH ×3 (07:56→21:24)
--- NOTE | 2019-02-21 08:28 | NUR ---
NURSE NOTES: 0800- For the past hour every ten minutes, went kept reapplying nasal cannula o2 @ 4L and reorientated patient. Patient continuously removed o2 NC and heart monitor. @ 8:10am Pulse ox was 79 % on RA and reported by HAND BOX FOLDER 8:20am - After reorientating patient and reapplying nasal canula, contacted RT, applied soft wrist restraints. After 3 minutes, patient's pulse ox is 96% on 4L NC that was rechecked at 8:23 am. 8:28am- Paged Dr. Quintero for restraint orders and charge nurse Dennys is made aware.
--- NOTE | 2019-02-21 08:45 | NUR ---
NURSE NOTES: Received order from b/l soft wrists from Dr. Quintero after callback.
[2019-02-21] MEDS: Minoxidil 2.5mg tab GT SCH ×2 (09:41→20:41)
[2019-02-21] MEDS: Sucralfate 1gm tab GT SCH ×4 (09:41→20:38)
[2019-02-21] MEDS: Heparin 5000 units/ml inj SUBQ SCH ×2 (09:42→20:41)
--- NOTE | 2019-02-21 09:59 | NUR ---
NURSE NOTES: Patient is tolerated feeding of Nepro 45 ml/hr. No residual noted. Flused 180 ml of free water. Patient is resting in bed and no distress noted.
--- NOTE | 2019-02-21 10:21 | Nephrology Progress Note ---
Assessment/Plan Plan CHF --- HD MWF- pending. Pneumonia - IV Abx. Aspiration episodes - GI to advise Repeat CXR shows worsening CHF!!! Patient was discharged to [facility] but DC was aborted, after I personally verified with [facility] and [facility] - nothing was arranged for outpatient HD. The patient would have been left without HD for 4 days. Subjective Subjective Very SOB. Pulling all objects she can reach. DC aborted due to unsafe no arrangements for transportation to outpatient dialysis!! Leonor Lowe CM Objective Objective Last 24 Hour Vital Signs Date Time Temp Pulse Resp B/P (MAP) Pulse Ox O2 Delivery O2 Flow Rate FiO2 02/21/19 09:41 166/91 02/21/19 09:41 81 166/91 02/21/19 08:20 96.3 81 20 166/91 (116) 96 02/21/19 08:00 Nasal Cannula 4.0 02/21/19 08:00 96.3 81 20 166/91 (116) 79 02/21/19 04:00 71 02/21/19 04:00 98.1 75 18 150/83 (105) 97 02/21/19 00:00 79 02/21/19 00:00 Nasal Cannula 4.0 02/21/19 00:00 97.7 79 16 153/61 (91) 95 02/20/19 20:29 143/66 02/20/19 20:00 Nasal Cannula 4.0 02/20/19 20:00 98.3 76 16 143/65 (91) 97 02/20/19 20:00 74 02/20/19 17:20 97.4 74 20 140/80 (100) 94 02/20/19 16:00 Nasal Cannula 4.0 02/20/19 16:00 97.2 68 20 153/65 (94) 100 02/20/19 15:20 74 02/20/19 12:00 97.2 68 18 146/65 (92) 100 02/20/19 12:00 Nasal Cannula 4.0 02/20/19 11:26 76 Intake and Output 02/20/19 02/21/19 18:59 06:59 Intake Total 615 ml 762 ml Balance 615 ml 762 ml Intake Free Water 180 ml IV Total 55 ml 110 ml Tube Feeding 440 ml 472 ml Other 120 ml # Voids 1 # Bowel Movements 2 3 Laboratory Tests 5/25/19 06:13: White Blood Count 6.1, Red Blood Count 2.83L, Hemoglobin 9.0L, Hematocrit 27.9L , Mean Corpuscular Volume 99, Mean Corpuscular Hemoglobin 31.9H, Mean Corpuscular Hemoglobin Concent 32.3, Red Cell Distribution Width 15.5H, Platelet Count 200, Mean Platelet Volume 5.4L, Neutrophils (%) (Auto) 79.6H, Lymphocytes (%) (Auto) 9.7L, Monocytes (%) (Auto) 8.7, Eosinophils (%) (Auto) 1.3, Basophils (%) (Auto) 0.8, Sodium Level 133L, Potassium Level 3.6, Chloride Level 94L, Carbon Dioxide Level 28, Anion Gap 11, Blood Urea Nitrogen 50H, Creatinine 2.4H, Estimat Glomerular Filtration Rate , Glucose Level 143H, Calcium Level 9.4 Height (Feet): 5 Height (Inches): 4.00 Weight (Pounds): 139 Objective CV RR Lungs B ronchi + wheezes. Abd SNT. BS + E No CCE Raul Cannon MD February 21, 2019 10:21
[2019-02-21] MEDS ORDERED: NS 275ml ONE (10:24)
[2019-02-21] MEDS ORDERED: Tubing IV Secondary IV ONE (10:24)
--- NOTE | 2019-02-21 12:00 | NUR ---
NURSE NOTES: Nepro is running @ 45 ml/hr. 180ml of free water flushed. Gt is patent with dry/intact dressing.
--- NOTE | 2019-02-21 16:19 | Pulmonology Progress Note ---
Assessment/Plan Assessment/Plan Pulmonary Progress Note Assessment/Plan 1. acute respiratory failure 2. End-stage renal failure, on dialysis. 3. COPD. 4. Schizophrenia. 5. Pulmonary edema, right pleural effusion due to overload 6. Anemia of chronic kidney disease. 7. Sick sinus syndrome. 8. diabetes mellitus. PLAN acid base adequate BIPAP PRN titrate oxygen and reduce as able HD with UF monitor fluid status and imaging- ordered for today continue supportive care follow up fluid status somewhat improved and hope to proceed with dc planning impression, plan, and exam edited and reviewed in detail care discussed with RN Subjective ROS Limited/Unobtainable: Yes Allergies: Coded Allergies: No Known Allergies Subjective care noted on oxygen awake no distress Objective Vital Signs Noted Objective WDWN on oxygen reduced breath sounds bilaterally without rhonchi or wheeze [id number] without MRG NABS nontender no HSM no CC mild edema nonfocal reviewed and edited Laboratory Tests 02/18/19 16:00: Stool Occult Blood [Pending] 02/19/19 03:35: White Blood Count 6.1, Red Blood Count 2.98L, Hemoglobin 9.6L, Hematocrit 29.8L , Mean Corpuscular Volume 100H, Mean Corpuscular Hemoglobin 32.2H, Mean Corpuscular Hemoglobin Concent 32.2, Red Cell Distribution Width 16.0H, Platelet Count 178, Mean Platelet Volume 6.3L, Neutrophils (%) (Auto) 81.6H, Lymphocytes (%) (Auto) 6.8L, Monocytes (%) (Auto) 7.4, Eosinophils (%) (Auto) 3.0, Basophils (%) (Auto) 1.2, Sodium Level 133L, Potassium Level 3.8, Chloride Level 93L, Carbon Dioxide Level 31, Anion Gap 9, Blood Urea Nitrogen 48H, Creatinine 2.5H, Estimat Glomerular Filtration Rate , Glucose Level 147H, Calcium Level 9.3, Iron Level 47L, Total Iron Binding Capacity 124L, Percent Iron Saturation 38, Unsaturated Iron Binding 77L, Total Bilirubin 0.7, Aspartate Amino Transf (AST/SGOT) 18, Alanine Aminotransferase (ALT/SGPT) 15, Alkaline Phosphatase 106, Total Protein 7.7, Albumin 2.8L, Globulin 4.9, Albumin /Globulin Ratio 0.6L, Amylase Level 54, Lipase 307 Current Medications Medications (Trade) Dose Ordered Sig/Konrad Route PRN Reason Start Time Stop Time Status Last Admin Dose Admin Acetaminophen (Tylenol) 650 mg Q4H PRN GT Mild Pain/Temp > 100.5 02/14/19 15:15 03/16/19 15:14 02/18/19 14:06 Albuterol Sulfate (Proventil) 2.5 mg Q6HRT PRN HHN Shortness of Breath 02/14/19 15:15 02/19/19 15:14 Amlodipine Besylate (Norvasc) 10 mg DAILY GT 02/15/19 09:00 03/17/19 08:59 02/19/19 08:07 Dextrose (Dextrose 50%) 25 ml Q30M PRN IV Hypoglycemia 02/14/19 15:15 03/16/19 15:14 Dextrose (Dextrose 50%) 50 ml Q30M PRN IV Hypoglycemia 02/14/19 15:15 03/16/19 15:14 Heparin Sodium (Porcine) (Heparin 5000 units/ml) 5,000 units EVERY 12 HOURS SUBQ 02/14/19 21:00 03/16/19 20:59 02/19/19 08:09 Insulin Aspart (NovoLOG) BEFORE MEALS AND HS SUBQ 02/14/19 16:30 03/16/19 16:29 02/19/19 05:38 Lansoprazole (Prevacid) 30 mg DAILY GT 02/19/19 09:00 03/21/19 08:59 02/19/19 08:06 Levothyroxine Sodium (Synthroid) 150 mcg DAILY@0630 GT 02/15/19 06:30 03/17/19 06:29 02/19/19 05:34 Lorazepam (Ativan) 0.5 mg Q4H PRN GT For Anxiety 02/15/19 15:36 02/22/19 15:35 02/17/19 20:27 Metoclopramide HCl (Reglan) 5 mg Q6H PRN IVP Nausea & Vomiting 02/18/19 15:30 03/20/19 15:29 Minoxidil (Loniten) 2.5 mg Q12HR GT 02/14/19 21:00 03/16/19 20:59 02/19/19 08:07 Ondansetron HCl (Zofran) 4 mg Q6H PRN IVP Nausea & Vomiting 02/17/19 23:15 03/19/19 23:14 02/18/19 00:08 Piperacillin Sod/ Tazobactam Sod 2.25 gm/Dextrose 55 ml @ 110 mls/hr Q8H IVPB 02/16/19 16:00 02/21/19 21:59 02/19/19 08:06 Sucralfate (Carafate) 1 gm FOUR TIMES A DAY GT 02/15/19 09:00 03/17/19 08:59 02/19/19 08:06 Subjective ROS Limited/Unobtainable: No Allergies: Coded Allergies: No Known Allergies (Unverified , 05/11/18) Objective Last 24 Hour Vital Signs Date Time Temp Pulse Resp B/P (MAP) Pulse Ox O2 Delivery O2 Flow Rate FiO2 02/21/19 12:11 68 02/21/19 12:00 96.4 76 20 145/68 (93) 96 02/21/19 09:41 166/91 02/21/19 09:41 81 166/91 02/21/19 08:26 76 02/21/19 08:20 96.3 81 20 166/91 (116) 96 02/21/19 08:00 Nasal Cannula 4.0 02/21/19 08:00 96.3 81 20 166/91 (116) 79 02/21/19 04:00 71 02/21/19 04:00 98.1 75 18 150/83 (105) 97 02/21/19 00:00 79 02/21/19 00:00 Nasal Cannula 4.0 02/21/19 00:00 97.7 79 16 153/61 (91) 95 02/20/19 20:29 143/66 02/20/19 20:00 Nasal Cannula 4.0 02/20/19 20:00 98.3 76 16 143/65 (91) 97 02/20/19 20:00 74 02/20/19 17:20 97.4 74 20 140/80 (100) 94 Intake and Output 02/20/19 02/21/19 19:00 07:00 Intake Total 700 ml 679 ml Balance 700 ml 679 ml Intake Free Water 60 ml 120 ml IV Total 55 ml 110 ml Tube Feeding 465 ml 449 ml Other 120 ml # Voids 1 # Bowel Movements 2 3 Laboratory Tests 02/21/19 06:13: White Blood Count 6.1, Red Blood Count 2.83L, Hemoglobin 9.0L, Hematocrit 27.9L , Mean Corpuscular Volume 99, Mean Corpuscular Hemoglobin 31.9H, Mean Corpuscular Hemoglobin Concent 32.3, Red Cell Distribution Width 15.5H, Platelet Count 200, Mean Platelet Volume 5.4L, Neutrophils (%) (Auto) 79.6H, Lymphocytes (%) (Auto) 9.7L, Monocytes (%) (Auto) 8.7, Eosinophils (%) (Auto) 1.3, Basophils (%) (Auto) 0.8, Sodium Level 133L, Potassium Level 3.6, Chloride Level 94L, Carbon Dioxide Level 28, Anion Gap 11, Blood Urea Nitrogen 50H, Creatinine 2.4H, Estimat Glomerular Filtration Rate , Glucose Level 143H, Calcium Level 9.4 Current Medications Medications (Trade) Dose Ordered Sig/Konrad Route PRN Reason Start Time Stop Time Status Last Admin Dose Admin Acetaminophen (Tylenol) 650 mg Q4H PRN GT Mild Pain/Temp > 100.5 02/20/19 18:00 03/16/19 17:59 Amlodipine Besylate (Norvasc) 10 mg DAILY GT 02/21/19 09:00 03/17/19 08:59 02/21/19 09:41 Dextrose (Dextrose 50%) 25 ml Q30M PRN IV Hypoglycemia 02/20/19 17:45 03/16/19 15:14 Dextrose (Dextrose 50%) 50 ml Q30M PRN IV Hypoglycemia 02/20/19 17:45 03/16/19 15:14 Heparin Sodium (Porcine) (Heparin 5000 units/ml) 5,000 units EVERY 12 HOURS SUBQ 02/20/19 21:00 03/16/19 20:59 02/21/19 09:42 Heparin Sodium (Porcine) (Heparin Sod 1000 units/ml 10ml) 2,000 unit NEEDED PRN IV dialysis use 02/20/19 17:45 02/25/19 17:44 Insulin Aspart (NovoLOG) EVERY 6 HOURS SUBQ 02/20/19 18:00 03/16/19 16:29 02/21/19 13:51 Lansoprazole (Prevacid) 30 mg DAILY GT 02/21/19 09:00 03/21/19 08:59 02/21/19 09:41 Levothyroxine Sodium (Synthroid) 150 mcg DAILY@0630 GT 02/21/19 06:30 03/17/19 06:29 02/21/19 05:38 Lorazepam (Ativan) 0.5 mg Q4H PRN GT For Anxiety 02/20/19 18:00 02/22/19 17:59 02/21/19 02:57 Metoclopramide HCl (Reglan) 5 mg Q6H PRN IVP Nausea & Vomiting 02/20/19 18:00 03/20/19 17:59 Minoxidil (Loniten) 2.5 mg Q12HR GT 02/20/19 21:00 03/16/19 20:59 02/21/19 09:41 Ondansetron HCl (Zofran) 4 mg Q6H PRN IVP Nausea & Vomiting 02/20/19 18:00 03/19/19 17:59 Piperacillin Sod/ Tazobactam Sod 2.25 gm/Dextrose 55 ml @ 110 mls/hr Q8H IVPB 02/21/19 00:00 02/21/19 21:59 02/21/19 07:56 Sucralfate (Carafate) 1 gm FOUR TIMES A DAY GT 02/20/19 18:00 03/17/19 08:59 02/21/19 13:52 Wilmer Palacios MD February 21, 2019 16:19
--- NOTE | 2019-02-21 18:00 | NUR ---
NURSE NOTES: Nepro is running @ 45 ml/hr. 180ml of free water flushed. Gt is patent with dry/intact dressing.
--- NOTE | 2019-02-21 19:59 | NUR ---
HAND-OFF: Report given to WILIAM Alfaro.
--- NOTE | 2019-02-21 20:04 | NUR ---
NURSE NOTES: Received report form WILIAM Sumner. Pt is resting in bed. In no acute distress. IV line intact and patent. Bed in lowest position, call light within reach. Will continue plan of care.
--- NOTE | 2019-02-21 21:11 | General Progress Note ---
Assessment/Plan Status: unchanged Assessment/Plan: Assessment (1) Anemia ICD Codes: D64.9 - Anemia, unspecified SNOMED: 457701420 (2) Respiratory failure ICD Codes: J96.90 - Respiratory failure, unspecified, unspecified whether with hypoxia or hypercapnia SNOMED: 504795405 Qualifiers: Qualified Codes: J96.01 - Acute respiratory failure with hypoxia; J96.02 - Acute respiratory failure with hypercapnia (3) End stage renal disease on dialysis ICD Codes: N18.6 - End stage renal disease; Z99.2 - Dependence on renal dialysis SNOMED: 267803201 Status: unchanged Assessment/Plan Macrocytic anemia OB stool positive, stable H&H s/p EGD colonoscopy in Oct 2018 >> esophageal ulcer, 2 colon polyps hold endoscopy at this time PRN transfusions PPI + Carafate Reglan ATC GTFs per RD GT site care follow labs Subjective Allergies: Coded Allergies: No Known Allergies (Unverified , 05/11/18) Subjective above noted tolerating TF non communicative Objective Last 24 Hour Vital Signs Date Time Temp Pulse Resp B/P (MAP) Pulse Ox O2 Delivery O2 Flow Rate FiO2 02/21/19 20:41 160/70 02/21/19 16:00 96.1 73 20 153/76 (101) 96 02/21/19 15:22 73 02/21/19 12:11 68 02/21/19 12:00 96.4 76 20 145/68 (93) 96 02/21/19 09:41 166/91 02/21/19 09:41 81 166/91 02/21/19 08:26 76 02/21/19 08:20 96.3 81 20 166/91 (116) 96 02/21/19 08:00 Nasal Cannula 4.0 02/21/19 08:00 96.3 81 20 166/91 (116) 79 02/21/19 04:00 71 02/21/19 04:00 98.1 75 18 150/83 (105) 97 02/21/19 00:00 79 02/21/19 00:00 Nasal Cannula 4.0 02/21/19 00:00 97.7 79 16 153/61 (91) 95 Intake and Output 02/20/19 02/21/19 19:00 07:00 Intake Total 700 ml 679 ml Balance 700 ml 679 ml Intake Free Water 60 ml 120 ml IV Total 55 ml 110 ml Tube Feeding 465 ml 449 ml Other 120 ml # Voids 1 # Bowel Movements 2 3 Laboratory Tests 02/21/19 06:13: White Blood Count 6.1, Red Blood Count 2.83L, Hemoglobin 9.0L, Hematocrit 27.9L , Mean Corpuscular Volume 99, Mean Corpuscular Hemoglobin 31.9H, Mean Corpuscular Hemoglobin Concent 32.3, Red Cell Distribution Width 15.5H, Platelet Count 200, Mean Platelet Volume 5.4L, Neutrophils (%) (Auto) 79.6H, Lymphocytes (%) (Auto) 9.7L, Monocytes (%) (Auto) 8.7, Eosinophils (%) (Auto) 1.3, Basophils (%) (Auto) 0.8, Sodium Level 133L, Potassium Level 3.6, Chloride Level 94L, Carbon Dioxide Level 28, Anion Gap 11, Blood Urea Nitrogen 50H, Creatinine 2.4H, Estimat Glomerular Filtration Rate , Glucose Level 143H, Calcium Level 9.4 Height (Feet): 5 Height (Inches): 4.00 Weight (Pounds): 139 Objective Debilitated elderly AA woman NCAT supple CTA RR abd soft, Flat, (+) GT no edema OBS Blaine Vidal MD February 21, 2019 21:11
[2019-02-22] VITALS (9 sets, daily range): BP systolic 120–184; BP diastolic 23–80
[2019-02-22] MEDS: Piperacillin/Tazobactam 2.25 GM in D5W 55 ML IVPB SCH ×3 (06:25→21:42)
[2019-02-22] MEDS: NovoLOG Insulin Flexpen SUBQ SCH ×3 (06:31→18:16)
--- NOTE | 2019-02-22 07:05 | NUR ---
NURSE NOTES: Received report from WILIAM Alfaro. Pt. is in bed, awake, alert to name and with eyes open. HOB at 35%. No signs or symptoms of acute cardiac or respiratory distress noted. Patient has cafeteria monitor on, bed in lowest position and call light within easy reach, bed alarm on, side rails up x's3 and safety brakes engaged. Pt. denies pain at this time. G tube is intact and running nephro at 45cc/hr. RFA 22G IV intact and patent- SL. Left AV fistula has positive bruit and thrill, with dressing dry and intact. Patient is on p200 mattress. Will continue with plan of care.
--- NOTE | 2019-02-22 07:40 | NUR ---
HAND-OFF: Report given to WILIAM Sumner.
[2019-02-22] MEDS: Minoxidil 2.5mg tab GT SCH ×2 (09:40→21:15)
[2019-02-22] MEDS: Sucralfate 1gm tab GT SCH ×4 (09:40→21:15)
[2019-02-22] MEDS: Heparin 5000 units/ml inj SUBQ SCH ×2 (09:41→21:17)
--- NOTE | 2019-02-22 09:48 | Nephrology Progress Note ---
Assessment/Plan Plan CHF --- HD MWF- Pneumonia - IV Abx. Aspiration episodes - GI to advise Repeat CXR shows worsening CHF!!! DC aborted due to unsafe no arrangements for transportation to outpatient dialysis!! Leonor Lowe CM. DW Luz Marina Subjective Subjective Very SOB. Pulling all objects she can reach. Objective Objective Last 24 Hour Vital Signs Date Time Temp Pulse Resp B/P (MAP) Pulse Ox O2 Delivery O2 Flow Rate FiO2 02/22/19 09:40 139/78 02/22/19 09:40 72 139/78 02/22/19 08:00 97.7 72 22 139/78 (98) 96 02/22/19 07:41 73 02/22/19 04:00 97.5 77 18 158/65 (96) 99 02/22/19 04:00 77 02/22/19 00:00 71 02/22/19 00:00 97.8 71 18 134/59 (84) 99 02/21/19 21:00 Nasal Cannula 4.0 02/21/19 20:41 160/70 02/21/19 20:00 98.0 64 18 160/70 (100) 98 02/21/19 20:00 64 02/21/19 16:00 96.1 73 20 153/76 (101) 96 02/21/19 15:22 73 02/21/19 12:11 68 02/21/19 12:00 96.4 76 20 145/68 (93) 96 Intake and Output 02/21/19 02/22/19 19:00 07:00 Intake Total 315 ml 955 ml Balance 315 ml 955 ml Intake Free Water 180 ml 360 ml IV Total 55 ml Tube Feeding 135 ml 540 ml # Bowel Movements 3 Height (Feet): 5 Height (Inches): 4.00 Weight (Pounds): 132 Objective CV RR Lungs B ronchi + wheezes. Abd SNT. BS + E No CCE Raul Cannon MD February 22, 2019 09:48
--- NOTE | 2019-02-22 09:54 | General Progress Note ---
Assessment/Plan Status: unchanged Assessment/Plan: Assessment (1) Anemia ICD Codes: D64.9 - Anemia, unspecified SNOMED: 222531158 (2) Respiratory failure ICD Codes: J96.90 - Respiratory failure, unspecified, unspecified whether with hypoxia or hypercapnia SNOMED: 214243461 Qualifiers: Qualified Codes: J96.01 - Acute respiratory failure with hypoxia; J96.02 - Acute respiratory failure with hypercapnia (3) End stage renal disease on dialysis ICD Codes: N18.6 - End stage renal disease; Z99.2 - Dependence on renal dialysis SNOMED: 889557670 Status: unchanged Assessment/Plan Macrocytic anemia OB stool positive, stable H&H s/p EGD colonoscopy in Oct 2018 >> esophageal ulcer, 2 colon polyps hold endoscopy at this time PRN transfusions PPI + Carafate Reglan ATC GTFs per RD GT site care follow labs Subjective Allergies: Coded Allergies: No Known Allergies (Unverified , 05/11/18) Subjective above noted tolerating TF non communicative Objective Last 24 Hour Vital Signs Date Time Temp Pulse Resp B/P (MAP) Pulse Ox O2 Delivery O2 Flow Rate FiO2 02/22/19 09:40 139/78 02/22/19 09:40 72 139/78 02/22/19 08:00 97.7 72 22 139/78 (98) 96 02/22/19 07:41 73 02/22/19 04:00 97.5 77 18 158/65 (96) 99 02/22/19 04:00 77 02/22/19 00:00 71 02/22/19 00:00 97.8 71 18 134/59 (84) 99 02/21/19 21:00 Nasal Cannula 4.0 02/21/19 20:41 160/70 02/21/19 20:00 98.0 64 18 160/70 (100) 98 02/21/19 20:00 64 02/21/19 16:00 96.1 73 20 153/76 (101) 96 02/21/19 15:22 73 02/21/19 12:11 68 02/21/19 12:00 96.4 76 20 145/68 (93) 96 Intake and Output 02/21/19 02/22/19 18:59 06:59 Intake Total 337 ml 910 ml Balance 337 ml 910 ml Intake Free Water 180 ml 360 ml IV Total 55 ml Tube Feeding 157 ml 495 ml # Bowel Movements 3 Height (Feet): 5 Height (Inches): 4.00 Weight (Pounds): 132 Objective Debilitated elderly AA woman NCAT supple CTA RR abd soft, Flat, (+) GT no edema OBS Blaine Vidal MD February 22, 2019 09:54
--- NOTE | 2019-02-22 13:00 | NUR ---
NURSE NOTES: Reported to Dr. Quintero about 3 loose bowel movements. Watery and diarrhea. Order received for stool sample. In addition, Dr. Cannon is aware about patient having ronchi bilateral lung sounds and to continue intermittent suction.
--- NOTE | 2019-02-22 13:12 | NUR ---
CASE MANAGEMENT: REVIEW 02/22/2019 SI:ACUTE ON CHRONIC RESP FAILURE. T 97.7 HR 68 RR 21 B/P 143/61 SATS 99% ON 4L/NC NO LABS TODAY IS:INSULIN SUBQ Q6H NORVASC GT QD PREVACID GT QD SYNTHROID GT QD LONITEN GT Q12H ZOSYN IV Q8H CARAFATE GT QID TELE STATUS PLAN OF CARE: Macrocytic anemia OB stool positive, stable H&H s/p EGD colonoscopy in Oct 2018 >> esophageal ulcer, 2 colon polyps hold endoscopy at this time PRN transfusions
--- NOTE | 2019-02-22 18:12 | Pulmonology Progress Note ---
Assessment/Plan Assessment/Plan Pulmonary Progress Note Assessment/Plan 1. acute respiratory failure 2. End-stage renal failure, on dialysis. 3. COPD. 4. Schizophrenia. 5. Pulmonary edema, right pleural effusion due to overload 6. Anemia of chronic kidney disease. 7. Sick sinus syndrome. 8. diabetes mellitus. PLAN acid base adequate BIPAP PRN titrate oxygen and reduce as able HD with UF monitor fluid status and imaging- ordered for today continue supportive care follow up fluid status somewhat improved and hope to proceed with dc planning impression, plan, and exam edited and reviewed in detail care discussed with RN Subjective ROS Limited/Unobtainable: Yes Allergies: Coded Allergies: No Known Allergies Subjective care noted on oxygen awake no distress Objective Vital Signs Noted Objective WDWN on oxygen reduced breath sounds bilaterally without rhonchi or wheeze [id number] without MRG NABS nontender no HSM no CC mild edema nonfocal reviewed and edited Laboratory Tests 02/18/19 16:00: Stool Occult Blood [Pending] 02/19/19 03:35: White Blood Count 6.1, Red Blood Count 2.98L, Hemoglobin 9.6L, Hematocrit 29.8L , Mean Corpuscular Volume 100H, Mean Corpuscular Hemoglobin 32.2H, Mean Corpuscular Hemoglobin Concent 32.2, Red Cell Distribution Width 16.0H, Platelet Count 178, Mean Platelet Volume 6.3L, Neutrophils (%) (Auto) 81.6H, Lymphocytes (%) (Auto) 6.8L, Monocytes (%) (Auto) 7.4, Eosinophils (%) (Auto) 3.0, Basophils (%) (Auto) 1.2, Sodium Level 133L, Potassium Level 3.8, Chloride Level 93L, Carbon Dioxide Level 31, Anion Gap 9, Blood Urea Nitrogen 48H, Creatinine 2.5H, Estimat Glomerular Filtration Rate , Glucose Level 147H, Calcium Level 9.3, Iron Level 47L, Total Iron Binding Capacity 124L, Percent Iron Saturation 38, Unsaturated Iron Binding 77L, Total Bilirubin 0.7, Aspartate Amino Transf (AST/SGOT) 18, Alanine Aminotransferase (ALT/SGPT) 15, Alkaline Phosphatase 106, Total Protein 7.7, Albumin 2.8L, Globulin 4.9, Albumin /Globulin Ratio 0.6L, Amylase Level 54, Lipase 307 Current Medications Medications (Trade) Dose Ordered Sig/Konrad Route PRN Reason Start Time Stop Time Status Last Admin Dose Admin Acetaminophen (Tylenol) 650 mg Q4H PRN GT Mild Pain/Temp > 100.5 02/14/19 15:15 03/16/19 15:14 02/18/19 14:06 Albuterol Sulfate (Proventil) 2.5 mg Q6HRT PRN HHN Shortness of Breath 02/14/19 15:15 02/19/19 15:14 Amlodipine Besylate (Norvasc) 10 mg DAILY GT 02/15/19 09:00 03/17/19 08:59 02/19/19 08:07 Dextrose (Dextrose 50%) 25 ml Q30M PRN IV Hypoglycemia 02/14/19 15:15 03/16/19 15:14 Dextrose (Dextrose 50%) 50 ml Q30M PRN IV Hypoglycemia 02/14/19 15:15 03/16/19 15:14 Heparin Sodium (Porcine) (Heparin 5000 units/ml) 5,000 units EVERY 12 HOURS SUBQ 02/14/19 21:00 03/16/19 20:59 02/19/19 08:09 Insulin Aspart (NovoLOG) BEFORE MEALS AND HS SUBQ 02/14/19 16:30 03/16/19 16:29 02/19/19 05:38 Lansoprazole (Prevacid) 30 mg DAILY GT 02/19/19 09:00 03/21/19 08:59 02/19/19 08:06 Levothyroxine Sodium (Synthroid) 150 mcg DAILY@0630 GT 02/15/19 06:30 03/17/19 06:29 02/19/19 05:34 Lorazepam (Ativan) 0.5 mg Q4H PRN GT For Anxiety 02/15/19 15:36 02/22/19 15:35 02/17/19 20:27 Metoclopramide HCl (Reglan) 5 mg Q6H PRN IVP Nausea & Vomiting 02/18/19 15:30 03/20/19 15:29 Minoxidil (Loniten) 2.5 mg Q12HR GT 02/14/19 21:00 03/16/19 20:59 02/19/19 08:07 Ondansetron HCl (Zofran) 4 mg Q6H PRN IVP Nausea & Vomiting 02/17/19 23:15 03/19/19 23:14 02/18/19 00:08 Piperacillin Sod/ Tazobactam Sod 2.25 gm/Dextrose 55 ml @ 110 mls/hr Q8H IVPB 02/16/19 16:00 02/21/19 21:59 02/19/19 08:06 Sucralfate (Carafate) 1 gm FOUR TIMES A DAY GT 02/15/19 09:00 03/17/19 08:59 02/19/19 08:06 Subjective ROS Limited/Unobtainable: No Allergies: Coded Allergies: No Known Allergies (Unverified , 05/11/18) Objective Last 24 Hour Vital Signs Date Time Temp Pulse Resp B/P (MAP) Pulse Ox O2 Delivery O2 Flow Rate FiO2 02/22/19 16:00 83 02/22/19 16:00 97.7 82 23 154/80 (104) 95 02/22/19 12:00 97.7 68 21 143/61 (88) 99 02/22/19 11:51 64 02/22/19 09:40 139/78 02/22/19 09:40 72 139/78 02/22/19 09:00 Nasal Cannula 4.0 02/22/19 08:00 97.7 72 22 139/78 (98) 96 02/22/19 07:41 73 02/22/19 07:40 98 Nasal Cannula 4.0 36 02/22/19 07:40 Nasal Cannula 4.0 36 02/22/19 04:00 97.5 77 18 158/65 (96) 99 02/22/19 04:00 77 02/22/19 00:00 71 02/22/19 00:00 97.8 71 18 134/59 (84) 99 02/21/19 21:00 Nasal Cannula 4.0 02/21/19 20:41 160/70 02/21/19 20:00 98.0 64 18 160/70 (100) 98 02/21/19 20:00 64 Intake and Output 02/21/19 02/22/19 19:00 07:00 Intake Total 315 ml 955 ml Balance 315 ml 955 ml Intake Free Water 180 ml 360 ml IV Total 55 ml Tube Feeding 135 ml 540 ml # Bowel Movements 3 Current Medications Medications (Trade) Dose Ordered Sig/Konrad Route PRN Reason Start Time Stop Time Status Last Admin Dose Admin Acetaminophen (Tylenol) 650 mg Q4H PRN GT Mild Pain/Temp > 100.5 02/20/19 18:00 03/16/19 17:59 Amlodipine Besylate (Norvasc) 10 mg DAILY GT 02/21/19 09:00 03/17/19 08:59 02/22/19 09:40 Dextrose (Dextrose 50%) 25 ml Q30M PRN IV Hypoglycemia 02/20/19 17:45 03/16/19 15:14 Dextrose (Dextrose 50%) 50 ml Q30M PRN IV Hypoglycemia 02/20/19 17:45 03/16/19 15:14 Heparin Sodium (Porcine) (Heparin 5000 units/ml) 5,000 units EVERY 12 HOURS SUBQ 02/20/19 21:00 03/16/19 20:59 02/22/19 09:41 Heparin Sodium (Porcine) (Heparin Sod 1000 units/ml 10ml) 2,000 unit NEEDED PRN IV dialysis use 02/20/19 17:45 02/25/19 17:44 Heparin Sodium (Porcine) (Heparin Sod 1000 units/ml 10ml) 2,000 unit ONCE ONCE IV 02/23/19 10:00 02/23/19 10:01 Insulin Aspart (NovoLOG) EVERY 6 HOURS SUBQ 02/20/19 18:00 03/16/19 16:29 02/22/19 12:32 Lansoprazole (Prevacid) 30 mg DAILY GT 02/21/19 09:00 03/21/19 08:59 02/22/19 09:40 Levothyroxine Sodium (Synthroid) 150 mcg DAILY@0630 GT 02/21/19 06:30 03/17/19 06:29 02/22/19 06:25 Metoclopramide HCl (Reglan) 5 mg Q6H PRN IVP Nausea & Vomiting 02/20/19 18:00 03/20/19 17:59 Minoxidil (Loniten) 2.5 mg Q12HR GT 02/20/19 21:00 03/16/19 20:59 02/22/19 09:40 Ondansetron HCl (Zofran) 4 mg Q6H PRN IVP Nausea & Vomiting 02/20/19 18:00 03/19/19 17:59 Piperacillin Sod/ Tazobactam Sod 2.25 gm/Dextrose 55 ml @ 110 mls/hr Q8HR IVPB 02/21/19 22:00 02/26/19 21:59 02/22/19 14:12 Sucralfate (Carafate) 1 gm FOUR TIMES A DAY GT 02/20/19 18:00 03/17/19 08:59 02/22/19 14:12 Wilmer Palacios MD February 22, 2019 18:12
--- NOTE | 2019-02-22 19:05 | NUR ---
HAND-OFF: Report given to WILIAM Alfaro. Patient is in bed on 2L NC. Endorsed that despite about every two hour oral suction, patient still has ronchi lung sounds. Nepro is running @45 ml/hr through patent g-tube. Suction setup is at bedside. Notify respiratory about suction.
--- NOTE | 2019-02-22 19:30 | NUR ---
NURSE NOTES: Received report from WILIAM Sumner. Pt is resting in bed. Pt is non-verbal. Pt is very congested. Suctioned as needed. G-tube intact. HOB elevated. Bed in lowest position, call light within reach. Will continue plan of care.
--- NOTE | 2019-02-22 20:00 | NUR ---
NURSE NOTES: Noted pt was bradycardic on the monitor in the 40s then 30s. Assesed pt. Pt is awake and alert. Noted with labored breathing. Noted with ronchi on bilateral lungs upon auscultation. Skin appears pale. Tried to get O2 sat but unable to read. Called INVERFORM MACHINE OPERATOR.
--- NOTE | 2019-02-22 20:11 | NUR ---
NURSE NOTES: 1952 MD watson was called and informed Pt was in a code. 2009 MD watson was called and paged again about pt being in a code.
--- NOTE | 2019-02-22 20:16 | NUR ---
NURSE NOTES: Pt's transferred to ICU from s/p FAN MAIL CLERK, and intubation. Pt's on vent with ETT 7.5, 25 lipline, AC 12, TV 500, 100%, peep 5. SR on cardiac nurse specialist. Noted GT intact, no residuals, previous feeding was Nepro at 45ml/hr. Pt's anuric, HD on , , Saturday via Urinal. Noted sacral stage 2, multiple ecchymosis on bilateral arms. Pt has Right AC 22G. Bilateral soft wrists restraints noted. HOB kept elevated. Call light within reach. Will continue to monitor.
--- NOTE | 2019-02-22 20:30 | NUR ---
NURSE NOTES: Spoke to Dr Cannon regarding the transfer of his patient s/p OBJECTIVE C DEVELOPER and intubation. Reviewed ABG and vent settings. Discussed plan at this time. Per MD wanted a follow up on CXR. Will contact MD with results once available. Will continue to monitor and follow MD plan of care.
--- NOTE | 2019-02-22 20:34 | NUR ---
DIAMOND EXPERT Note: DIAMOND EXPERT was called at 1947 by Dominic Givens RN and notified Dr. Cannon. Pt transferred to ICU at 2009. See DIAMOND EXPERT documentation form for full report. Addendum: 02/22/19 at 2259 by Dominic Givens RN Eusebio dasilva was called for intubation.
--- NOTE | 2019-02-22 20:45 | NUR ---
RAPID RESPONSE See Rapid Response sheet which remains on paper. Addendum: 02/22/19 at 2310 by CHRISTIAN HOWELL RN CODE BLUE: See Code sheet which remains on paper. An SHEETER HELPER was initiated. Patient was noted to be hypertensive and agonally breathing. Per the report of the primary RN, patient had gone Samir to the 30s. Atropine was being prepared to be given however, patient recovered however continued to breath agonally. RT suctioned copious amounts of sputum from the patient. Patient was unresponsive with pupils that were sluggish BL 2 mm. Upon auscultation, rhonchi was heard throughout. Pulse Ox did not register and patient became cyanotic at which time, a CODE BLUE was initiated. ABGs were immediately ordered while MD was en route. Patient remained with pulse. Dr Swann arrived. MD intubated the patient and she was transferred to the ICU.
--- NOTE | 2019-02-22 21:06 | Emergency Room Report ---
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 I feel this is a highly complex case requiring extensive working including EKG/Rhythm strip, Xray/CT/US, Blood/urine lab work, repeat exams while in ED, and administration of strong opiates/narcotics for pain control, admission to hospital or close patient follow up. Total time: 30 min bedside evaluation and treatment excludes procedures (EKG). Reason for critical care: pulmonary edema, respiratory distress Possible complications: hypotension, hypertension, SD, shock, arrhythmias, metabolic acidosis, end organ damage, respiratory failure. Interventions: intubation. Course: rapid response called on patient. in pulmonary edema with agonal breathing. pulse stable.I evaluated patient and made decision to intubate. intubated w/o complication. good breath sounds bilaterally. patient moved to ICU. Consultations: nursing staff, EMS, family Performed by: Dr Stallings Tolerated well condition = critical j. because of unstable vital signs this patient had a condition that could potentially threaten life or limb. I feel this is a critical patient who required my full attention while patient was considered critical. Total Critical Care Time excluding procedures was greater than 35 minutes Intubation Intubation : Consent: Emergent Intubation Method: orotracheal Tube Size (cm): 7.5 Medications: Etomidate, Rocuronium Breath Sounds after Intubation: equal Intubation Complications: no complications Post Intubation Xray: Yes Attempts: One Patient Tolerated: Well Complications: None Medical Decision Making Diagnostic Impression: Primary Impression: Pulmonary edema Qualified Codes: J81.0 - Acute pulmonary edema Additional Impressions: RLL pneumonia Qualified Codes: J18.1 - Lobar pneumonia, unspecified organism Respiratory failure Qualified Codes: J96.01 - Acute respiratory failure with hypoxia; J96.02 - Acute respiratory failure with hypercapnia Pleural effusion, right ER Course I was called to evaluate this patient on the telemetry floor. Rapid response called as patient had agonal breathing. Admitted for pulmonary edema. History of end-stage renal disease. Upon arrival patient with agonal breathing. I made decision to intubate the patient. Patient intubated without complication. Full breath sounds bilaterally with good color change on CO2 capnography. Chest x-ray confirms ET tube placement. Patient moved to ICU Last Vital Signs Date Time Temp Pulse Resp B/P (MAP) Pulse Ox O2 Delivery O2 Flow Rate FiO2 02/22/19 16:00 83 02/22/19 16:00 97.7 23 154/80 (104) 95 02/22/19 09:00 Nasal Cannula 4.0 02/22/19 07:40 36 Status: improved Disposition: ADMITTED INPATIENT Condition: Critical Scripts Lansoprazole* (LANSOPRAZOLE*) 30 Mg Capsule. 30 MG GT DAILY for 30 Days, CAP 9 Refills Prov: Raul Cannon MD 02/20/19 Referrals: Raul Cannon MD (PCP) Yoni Stallings MD February 22, 2019 21:06
[2019-02-22] MEDS: Acetaminophen 650mg/20.3ml GT PRN (21:18)
--- NOTE | 2019-02-22 21:19 | Diagnostic Imaging Report ---
EXAM: XR Chest, 1 View CLINICAL HISTORY: F/U TECHNIQUE: Frontal view of the chest. COMPARISON: No relevant prior studies available. FINDINGS: Lungs: Failure with pulmonary edema and effusions. Pleural space: No pneumothorax. Heart: Large cardiac silhouette. Mediastinum: Unremarkable. Bones/joints: No acute fracture. Tubes, lines and devices: The endotracheal tube is approximately 2 cm above the jack. IMPRESSION: 1. The endotracheal tube is approximately 2 cm above the jack. 2. Failure with pulmonary edema and effusions.
--- NOTE | 2019-02-22 21:35 | NUR ---
NURSE NOTES: Spoke to Dr Palacios regarding s/p CELLULOID TRIMMER of patient. Per MD changed vent settings, gave new orders for meds and ordered labs, CXR and repeat ABG. Went over all lab values, results and current status of the patient. Will follow up with primary RN and will follow up with MD once CXR results are available as well as new ABG results after new vent settings. Will continue to monitor the patient. Patient is currently in no acute distress, no signs or symptoms of respiratory distress. Will follow MD plan of care.
[2019-02-22 21:41] LABS: HEMOGLOBIN 7.9 G/DL (12.0-16.0); MEAN CORPUSCULAR VOLUME 94 FL (80-99); PLATELET COUNT 174 K/UL (150-450); RED BLOOD COUNT 2.45 M/UL (4.20-5.40); RED CELL DISTRIBUTION WIDTH 14.5 % (11.6-14.8); WHITE BLOOD COUNT 12.1 K/UL (4.8-10.8)
--- NOTE | 2019-02-22 22:00 | NUR ---
NURSE NOTES: Pt's resting bed, in no acute distress, asleep with eyes closed. VS stable. Will continue to monitor.
[2019-02-22 22:05] LABS: ANION GAP 11 mmol/L (5-15); BLOOD UREA NITROGEN 92 mg/dL (7-18); CALCIUM 9.1 MG/DL (8.5-10.1); CARBON DIOXIDE 27 MMOL/L (21-32); CHLORIDE 92 MMOL/L (98-107); CREATININE 3.8 MG/DL (0.55-1.30); POTASSIUM 3.9 MMOL/L (3.5-5.1); SODIUM 130 MMOL/L (136-145)
[2019-02-22 22:08] LABS: AMMONIA 17 umol/L (11-32)
[2019-02-22 22:16] LABS: ALANINE AMINOTRANSFERASE 28 U/L (12-78); ALBUMIN/GLOBULIN RATIO 0.6 (1.0-2.7); ALKALINE PHOSPHATASE 98 U/L (46-116); ASPARTATE AMINO TRANSFERASE 27 U/L (15-37); BILIRUBIN,TOTAL 0.8 MG/DL (0.2-1.0)
[2019-02-22] MEDS ORDERED: Vancomycin 1.25gm Premix IVPB ONE (23:00)
[2019-02-22] MEDS: Albuterol/Ipratropium 3ml neb HHN SCH (23:44)
[2019-02-22] MEDS: LORazepam Inj 2mg/ml 1ml IV PRN (23:59)
[2019-02-23] VITALS (24 sets, daily range): BP systolic 96–156; BP diastolic 19–64
--- NOTE | 2019-02-23 | NUR ---
NURSE NOTES: Pt's resting bed, in no acute distress, asleep with eyes closed. VS stable. Will continue to monitor.
[2019-02-23] MEDS: NovoLOG Insulin Flexpen SUBQ SCH ×4 (00:26→18:24)
--- NOTE | 2019-02-23 02:00 | NUR ---
NURSE NOTES: Pt's resting bed, in no acute distress, asleep with eyes closed. VS stable. Will continue to monitor.
[2019-02-23] MEDS: Albuterol/Ipratropium 3ml neb HHN SCH ×4 (03:23→19:28)
--- NOTE | 2019-02-23 04:00 | NUR ---
NURSE NOTES: Pt's resting in bed, asleep with eyes closed. No acute distress at this time. VS stable. Will continue to monitor.
[2019-02-23] MEDS: Piperacillin/Tazobactam 2.25 GM in D5W 55 ML IVPB SCH ×3 (05:47→21:32)
--- NOTE | 2019-02-23 06:00 | NUR ---
NURSE NOTES: Pt's resting in bed, asleep with eyes closed. No acute distress at this time. VS stable. Will continue to monitor.
[2019-02-23 06:20] LABS: HEMATOCRIT 21.3 % (37.0-47.0); MEAN CORPUSCULAR VOLUME 98 FL (80-99); PLATELET COUNT 178 K/UL (150-450); RED BLOOD COUNT 2.16 M/UL (4.20-5.40); RED CELL DISTRIBUTION WIDTH 15.2 % (11.6-14.8); WHITE BLOOD COUNT 12.8 K/UL (4.8-10.8)
[2019-02-23 06:27] LABS: ALANINE AMINOTRANSFERASE 27 U/L (12-78); ALBUMIN 2.8 G/DL (3.4-5.0); ALBUMIN/GLOBULIN RATIO 0.7 (1.0-2.7); ALKALINE PHOSPHATASE 84 U/L (46-116); ANION GAP 14 mmol/L (5-15); ASPARTATE AMINO TRANSFERASE 30 U/L (15-37); BILIRUBIN,TOTAL 0.6 MG/DL (0.2-1.0); BLOOD UREA NITROGEN 97 mg/dL (7-18); CALCIUM 8.7 MG/DL (8.5-10.1); CARBON DIOXIDE 26 MMOL/L (21-32); CHLORIDE 92 MMOL/L (98-107); POTASSIUM 3.6 MMOL/L (3.5-5.1); SODIUM 131 MMOL/L (136-145)
--- NOTE | 2019-02-23 06:36 | NUR ---
RESPIRATORY NOTE: Patient received mechanically ventilated on PB 840 with current ordered vent settings. Patient is orally intubated with an ETT tube size 7.5 and 23cm at the lip line that is secured with an anchor fast. There is an ambu bag available at the bedside and the vent is connected to a red outlet. Vent alarms are functional and audible. Will continue to monitor.
--- NOTE | 2019-02-23 07:20 | NUR ---
HAND-OFF: Report given to WILIAM Palmer.
--- NOTE | 2019-02-23 08:00 | NUR ---
NURSE NOTES: Patient nonverbal. Opens eyes, does not follow command. Cardiac monoitor showing SR. INtubated 7.5/25 cm lipline. AC 14 VT 400 Fio2 40% Pee p of 5. Patient has a G tube. Nepro at 45 cc/hr. Patient has rectal tube. No fley - anuric. P200 mattress intact. Dialysis schedule confirmed for today. L upper arm AV shunt. R foearm 22 tko. Lung sounds diminished bilaterally. Hyperactive bowel sounds present on all 4 quadrants. Will continue plan of care.
--- NOTE | 2019-02-23 08:08 | Nephrology Progress Note ---
Assessment/Plan Plan Respiratory Failure due to CHF + Pneumonia, m/p due to aspiration. See orders. CHF --- HD MWF- UF on HD today Pneumonia - IV Abx. Recurrent Aspiration episodes - GI to advise Repeat CXR shows worsening CHF!!! DC aborted due to unsafe no arrangements for transportation to outpatient dialysis!! Leonor Lowe CM. DW Luz Marina Subjective Subjective In ICU. Coded + intubated to to Cyanotic Respiratory Failure Objective Objective Last 24 Hour Vital Signs Date Time Temp Pulse Resp B/P (MAP) Pulse Ox O2 Delivery O2 Flow Rate FiO2 02/23/19 07:03 77 24 100 Mechanical Ventilator 40 02/23/19 07:00 97.8 74 21 120/35 (63) 100 02/23/19 06:55 40 02/23/19 06:53 78 24 100 Mechanical Ventilator 40 02/23/19 06:31 78 24 40 02/23/19 06:00 76 21 125/30 (61) 100 02/23/19 05:12 77 19 40 02/23/19 05:00 79 21 130/35 (66) 100 02/23/19 04:00 73 19 124/35 (64) 100 02/23/19 04:00 70 02/23/19 03:34 74 17 100 Mechanical Ventilator 40 02/23/19 03:34 70 02/23/19 03:25 67 22 40 02/23/19 03:24 67 22 40 Mechanical Ventilator 70 02/23/19 03:00 74 18 96/27 (50) 100 02/23/19 02:00 81 20 144/64 (90) 100 02/23/19 01:07 73 22 40 02/23/19 01:00 70 20 132/54 (80) 100 02/23/19 00:00 95 02/23/19 00:00 70 22 100 Mechanical Ventilator 70 02/23/19 00:00 65 20 156/53 (87) 100 02/23/19 00:00 70 02/22/19 23:45 63 19 100 Mechanical Ventilator 70 02/22/19 23:00 77 20 120/23 (55) 100 02/22/19 22:49 77 21 80 02/22/19 22:04 100 Mechanical Ventilator 100 02/22/19 22:00 65 20 124/53 (76) 100 02/22/19 22:00 80 02/22/19 21:30 67 23 100 02/22/19 21:15 187/50 02/22/19 21:00 70 20 156/38 (77) 100 02/22/19 21:00 Mechanical Ventilator 02/22/19 20:00 97.0 85 20 184/53 (96) 94 02/22/19 20:00 90 02/22/19 19:50 68 22 100 02/22/19 16:00 83 02/22/19 16:00 97.7 82 23 154/80 (104) 95 02/22/19 12:00 97.7 68 21 143/61 (88) 99 02/22/19 11:51 64 02/22/19 09:40 139/78 02/22/19 09:40 72 139/78 02/22/19 09:00 Nasal Cannula 4.0 Intake and Output 02/22/19 02/23/19 19:00 07:00 Intake Total 925 ml Output Total 200 ml Balance -200 ml 925 ml Intake Free Water 330 ml IV Total 55 ml Tube Feeding 540 ml Output Urine Total 200 ml # Bowel Movements 5 Laboratory Tests 02/22/19 20:01: Arterial Blood pH 7.280L, Arterial Blood Partial Pressure CO2 50.0H, Arterial Blood Partial Pressure O2 280.8H, Arterial Blood HCO3 23.0, Arterial Blood Oxygen Saturation 99.3, Arterial Blood Base Excess -3.8L, Zachary Test Positive 02/22/19 21:00: Arterial Blood pH 7.407, Arterial Blood Partial Pressure CO2 37.7, Arterial Blood Partial Pressure O2 383.2H, Arterial Blood HCO3 23.2, Arterial Blood Oxygen Saturation 99.6, Arterial Blood Base Excess -1.3, Zachary Test Positive 02/22/19 21:20: White Blood Count 12.1H, Red Blood Count 2.45L, Hemoglobin 7.9L, Hematocrit 23.0L, Mean Corpuscular Volume 94, Mean Corpuscular Hemoglobin 32.2H, Mean Corpuscular Hemoglobin Concent 34.3, Red Cell Distribution Width 14.5, Platelet Count 174, Mean Platelet Volume 4.6L, Neutrophils (%) (Auto) , Lymphocytes (%) ( Auto) , Monocytes (%) (Auto) , Eosinophils (%) (Auto) , Basophils (%) (Auto) , Sodium Level 130L, Potassium Level 3.9, Chloride Level 92L, Carbon Dioxide Level 27, Anion Gap 11, Blood Urea Nitrogen 92H, Creatinine 3.8H, Estimat Glomerular Filtration Rate , Glucose Level 234H, Lactic Acid Level 1.20, Calcium Level 9.1, Total Bilirubin 0.8, Aspartate Amino Transf (AST/SGOT) 27, Alanine Aminotransferase (ALT/SGPT) 28, Alkaline Phosphatase 98, Ammonia 17, Pro -B-Type Natriuretic Peptide > 12670S, Total Protein 7.8, Albumin 3.0L, Globulin 4.8, Albumin/Globulin Ratio 0.6L 02/22/19 22:30: Arterial Blood pH 7.401, Arterial Blood Partial Pressure CO2 44.8, Arterial Blood Partial Pressure O2 259.0H, Arterial Blood HCO3 27.2H, Arterial Blood Oxygen Saturation 99.3, Arterial Blood Base Excess 2.1H, Zachary Test Positive 02/23/19 04:50: White Blood Count 12.8H, Red Blood Count 2.16L, Hemoglobin 7.0L, Hematocrit 21.3L, Mean Corpuscular Volume 98, Mean Corpuscular Hemoglobin 32.4H, Mean Corpuscular Hemoglobin Concent 32.9, Red Cell Distribution Width 15.2H, Platelet Count 178, Mean Platelet Volume 6.0L, Neutrophils (%) (Auto) , Lymphocytes (%) (Auto) , Monocytes (%) (Auto) , Eosinophils (%) (Auto) , Basophils (%) (Auto) , Neutrophils % (Manual) [Pending], Lymphocytes % (Manual) [Pending], Platelet Estimate [Pending], Platelet Morphology [Pending], Sodium Level 131L, Potassium Level 3.6, Chloride Level 92L, Carbon Dioxide Level 26, Anion Gap 14, Blood Urea Nitrogen 97H, Creatinine 4.0H, Estimat Glomerular Filtration Rate , Glucose Level 127#H, Calcium Level 8.7, Phosphorus Level 3.5, Total Bilirubin 0.6, Aspartate Amino Transf (AST/SGOT) 30, Alanine Aminotransferase (ALT/SGPT) 27, Alkaline Phosphatase 84, Troponin I 0.125H, Total Protein 6.7, Albumin 2.8L, Globulin 3.9, Albumin/Globulin Ratio 0.7L 02/23/19 07:46: Arterial Blood pH 7.422, Arterial Blood Partial Pressure CO2 40.5, Arterial Blood Partial Pressure O2 94.9, Arterial Blood HCO3 25.8, Arterial Blood Oxygen Saturation 97.1, Arterial Blood Base Excess 1.3, Zachary Test Positive Height (Feet): 5 Height (Inches): 4.00 Weight (Pounds): 132 Objective Intubated, on vent CV RR Lungs B ronchi + wheezes. Abd SNT. BS + E No CCE Raul Cannon MD February 23, 2019 08:08
[2019-02-23] MEDS: Minoxidil 2.5mg tab GT SCH ×2 (09:28→21:10)
[2019-02-23] MEDS: Sucralfate 1gm tab GT SCH ×4 (09:28→21:09)
--- NOTE | 2019-02-23 09:29 | Pulmonology Progress Note ---
Assessment/Plan Assessment/Plan 1. acute respiratory failure 2. End-stage renal failure, on dialysis. 3. COPD. 4. Schizophrenia. 5. Pulmonary edema, due to overload 6. Anemia of chronic kidney disease. 7. Sick sinus syndrome. 8. diabetes mellitus. PLAN acid base adequate vent noted weaning trial titrate oxygen as able HD with UF monitor fluid status and imaging- ordered for today continue supportive care nutrition follow up for change medications/laboratory data/nursing notes/ICU care reviewed in detail note reviewed and edited care discussed with RN and RT ICU time spent 45 minutes Subjective ROS Limited/Unobtainable: Yes Allergies: Coded Allergies: No Known Allergies (Unverified , 05/11/18) Subjective care noted on oxygen on vent respiratory noted no distress Objective Last 24 Hour Vital Signs Date Time Temp Pulse Resp B/P (MAP) Pulse Ox O2 Delivery O2 Flow Rate FiO2 02/23/19 09:06 89 17 40 02/23/19 07:03 77 24 100 Mechanical Ventilator 40 02/23/19 07:00 97.8 74 21 120/35 (63) 100 02/23/19 06:55 40 02/23/19 06:53 78 24 100 Mechanical Ventilator 40 02/23/19 06:31 78 24 40 02/23/19 06:00 76 21 125/30 (61) 100 02/23/19 05:12 77 19 40 02/23/19 05:00 79 21 130/35 (66) 100 02/23/19 04:00 73 19 124/35 (64) 100 02/23/19 04:00 70 02/23/19 03:34 74 17 100 Mechanical Ventilator 40 02/23/19 03:34 70 02/23/19 03:25 67 22 40 02/23/19 03:24 67 22 40 Mechanical Ventilator 70 02/23/19 03:00 74 18 96/27 (50) 100 02/23/19 02:00 81 20 144/64 (90) 100 02/23/19 01:07 73 22 40 02/23/19 01:00 70 20 132/54 (80) 100 02/23/19 00:00 95 02/23/19 00:00 70 22 100 Mechanical Ventilator 70 02/23/19 00:00 65 20 156/53 (87) 100 02/23/19 00:00 70 02/22/19 23:45 63 19 100 Mechanical Ventilator 70 02/22/19 23:00 77 20 120/23 (55) 100 02/22/19 22:49 77 21 80 02/22/19 22:04 100 Mechanical Ventilator 100 02/22/19 22:00 65 20 124/53 (76) 100 02/22/19 22:00 80 02/22/19 21:30 67 23 100 02/22/19 21:15 187/50 02/22/19 21:00 70 20 156/38 (77) 100 02/22/19 21:00 Mechanical Ventilator 02/22/19 20:00 97.0 85 20 184/53 (96) 94 02/22/19 20:00 90 02/22/19 19:50 68 22 100 02/22/19 16:00 83 02/22/19 16:00 97.7 82 23 154/80 (104) 95 02/22/19 12:00 97.7 68 21 143/61 (88) 99 02/22/19 11:51 64 02/22/19 09:40 139/78 02/22/19 09:40 72 139/78 Intake and Output 02/22/19 02/23/19 19:00 07:00 Intake Total 925 ml Output Total 200 ml Balance -200 ml 925 ml Intake Free Water 330 ml IV Total 55 ml Tube Feeding 540 ml Output Urine Total 200 ml # Bowel Movements 5 Objective WDWN on vent ETT in place reduced breath sounds bilaterally without rhonchi or wheeze [id number] without MRG NABS nontender no HSM no CC mild edema nonfocal and sedated reviewed and edited Microbiology Date/Time Source Procedure Growth Status 02/23/19 04:50 Stool Clostridium difficile Toxin Assay - Final Complete Laboratory Tests 02/22/19 20:01: Arterial Blood pH 7.280L, Arterial Blood Partial Pressure CO2 50.0H, Arterial Blood Partial Pressure O2 280.8H, Arterial Blood HCO3 23.0, Arterial Blood Oxygen Saturation 99.3, Arterial Blood Base Excess -3.8L, Zachary Test Positive 02/22/19 21:00: Arterial Blood pH 7.407, Arterial Blood Partial Pressure CO2 37.7, Arterial Blood Partial Pressure O2 383.2H, Arterial Blood HCO3 23.2, Arterial Blood Oxygen Saturation 99.6, Arterial Blood Base Excess -1.3, Zachary Test Positive 02/22/19 21:20: White Blood Count 12.1H, Red Blood Count 2.45L, Hemoglobin 7.9L, Hematocrit 23.0L, Mean Corpuscular Volume 94, Mean Corpuscular Hemoglobin 32.2H, Mean Corpuscular Hemoglobin Concent 34.3, Red Cell Distribution Width 14.5, Platelet Count 174, Mean Platelet Volume 4.6L, Neutrophils (%) (Auto) , Lymphocytes (%) ( Auto) , Monocytes (%) (Auto) , Eosinophils (%) (Auto) , Basophils (%) (Auto) , Sodium Level 130L, Potassium Level 3.9, Chloride Level 92L, Carbon Dioxide Level 27, Anion Gap 11, Blood Urea Nitrogen 92H, Creatinine 3.8H, Estimat Glomerular Filtration Rate , Glucose Level 234H, Lactic Acid Level 1.20, Calcium Level 9.1, Total Bilirubin 0.8, Aspartate Amino Transf (AST/SGOT) 27, Alanine Aminotransferase (ALT/SGPT) 28, Alkaline Phosphatase 98, Ammonia 17, Pro -B-Type Natriuretic Peptide > 45673F, Total Protein 7.8, Albumin 3.0L, Globulin 4.8, Albumin/Globulin Ratio 0.6L 02/22/19 22:30: Arterial Blood pH 7.401, Arterial Blood Partial Pressure CO2 44.8, Arterial Blood Partial Pressure O2 259.0H, Arterial Blood HCO3 27.2H, Arterial Blood Oxygen Saturation 99.3, Arterial Blood Base Excess 2.1H, Zachary Test Positive 02/23/19 04:50: White Blood Count 12.8H, Red Blood Count 2.16L, Hemoglobin 7.0L, Hematocrit 21.3L, Mean Corpuscular Volume 98, Mean Corpuscular Hemoglobin 32.4H, Mean Corpuscular Hemoglobin Concent 32.9, Red Cell Distribution Width 15.2H, Platelet Count 178, Mean Platelet Volume 6.0L, Neutrophils (%) (Auto) , Lymphocytes (%) (Auto) , Monocytes (%) (Auto) , Eosinophils (%) (Auto) , Basophils (%) (Auto) , Neutrophils % (Manual) [Pending], Lymphocytes % (Manual) [Pending], Platelet Estimate [Pending], Platelet Morphology [Pending], Sodium Level 131L, Potassium Level 3.6, Chloride Level 92L, Carbon Dioxide Level 26, Anion Gap 14, Blood Urea Nitrogen 97H, Creatinine 4.0H, Estimat Glomerular Filtration Rate , Glucose Level 127#H, Calcium Level 8.7, Phosphorus Level 3.5, Total Bilirubin 0.6, Aspartate Amino Transf (AST/SGOT) 30, Alanine Aminotransferase (ALT/SGPT) 27, Alkaline Phosphatase 84, Troponin I 0.125H, Total Protein 6.7, Albumin 2.8L, Globulin 3.9, Albumin/Globulin Ratio 0.7L 02/23/19 07:46: Arterial Blood pH 7.422, Arterial Blood Partial Pressure CO2 40.5, Arterial Blood Partial Pressure O2 94.9, Arterial Blood HCO3 25.8, Arterial Blood Oxygen Saturation 97.1, Arterial Blood Base Excess 1.3, Zachary Test Positive Current Medications Medications (Trade) Dose Ordered Sig/Konrad Route PRN Reason Start Time Stop Time Status Last Admin Dose Admin Acetaminophen (Tylenol) 650 mg Q4H PRN GT Mild Pain/Temp > 100.5 02/20/19 18:00 03/16/19 17:59 02/22/19 21:18 Acetylcysteine (Mucomyst) 100 mg TIDRT N 02/23/19 07:00 03/25/19 06:59 02/23/19 06:53 Albuterol/ Ipratropium (Albuterol/ Ipratropium) 3 ml Q4HRT N 02/22/19 23:00 02/27/19 22:59 02/23/19 06:53 Amlodipine Besylate (Norvasc) 10 mg DAILY GT 02/21/19 09:00 03/17/19 08:59 02/22/19 09:40 Dextrose (Dextrose 50%) 25 ml Q30M PRN IV Hypoglycemia 02/20/19 17:45 03/16/19 15:14 Dextrose (Dextrose 50%) 50 ml Q30M PRN IV Hypoglycemia 02/20/19 17:45 03/16/19 15:14 Epoetin Chau (Epoetin Chau(ESRD on dialysis)) 8,000 unit SAT-SAT-SAT SUBQ 02/23/19 21:00 03/25/19 20:59 Heparin Sodium (Porcine) (Heparin 5000 units/ml) 5,000 units EVERY 12 HOURS SUBQ 02/20/19 21:00 03/16/19 20:59 02/22/19 21:17 Heparin Sodium (Porcine) (Heparin Sod 1000 units/ml 10ml) 2,000 unit NEEDED PRN IV dialysis use 02/20/19 17:45 02/25/19 17:44 Heparin Sodium (Porcine) (Heparin Sod 1000 units/ml 10ml) 2,000 unit ONCE ONCE IV 02/23/19 10:00 02/23/19 10:01 Insulin Aspart (NovoLOG) EVERY 6 HOURS SUBQ 02/20/19 18:00 03/16/19 16:29 02/23/19 05:49 Iron Sucrose 100 mg/Sodium Chloride 60 ml @ 240 mls/hr BEDTIME IVPB 02/23/19 21:00 02/27/19 21:14 Lansoprazole (Prevacid) 30 mg DAILY GT 02/21/19 09:00 03/21/19 08:59 02/22/19 09:40 Levothyroxine Sodium (Synthroid) 150 mcg DAILY@0630 GT 02/21/19 06:30 03/17/19 06:29 02/23/19 05:47 Lorazepam (Ativan 2mg/ml 1ml) 1 mg Q2H PRN IV For Anxiety/Agitation 02/22/19 21:30 03/01/19 21:29 02/22/19 23:59 Metoclopramide HCl (Reglan) 5 mg Q6H PRN IVP Nausea & Vomiting 02/20/19 18:00 03/20/19 17:59 Minoxidil (Loniten) 2.5 mg Q12HR GT 02/20/19 21:00 03/16/19 20:59 02/22/19 21:15 Ondansetron HCl (Zofran) 4 mg Q6H PRN IVP Nausea & Vomiting 02/20/19 18:00 03/19/19 17:59 Piperacillin Sod/ Tazobactam Sod 2.25 gm/Dextrose 55 ml @ 110 mls/hr Q8HR IVPB 02/21/19 22:00 02/26/19 21:59 02/23/19 05:47 Sucralfate (Carafate) 1 gm FOUR TIMES A DAY GT 02/20/19 18:00 03/17/19 08:59 02/22/19 21:15 Vancomycin HCl (Vanco rx to dose) 1 ea DAILY PRN MISC Per rx protocol 02/22/19 21:30 03/24/19 21:29 Jac Ramirez MD February 23, 2019 09:29
[2019-02-23] MEDS: Heparin 5000 units/ml inj SUBQ SCH ×2 (09:30→21:11)
[2019-02-23] MEDS ORDERED: Heparin Sod 1000 units/ml 10ml IV ONE (10:00)
--- NOTE | 2019-02-23 10:00 | NUR ---
NURSE NOTES: 2 Liter output from dialysis. Turned and repsoitioned. Vital signs stable. Will continue plan of care.
--- NOTE | 2019-02-23 12:00 | NUR ---
NURSE NOTES: Dr. Vidal at bedside - doctor requested 18 [facility] [address] g tube replacement for tomorrow. Will continue plan of care.
--- NOTE | 2019-02-23 12:00 | General Progress Note ---
Assessment/Plan Status: unchanged Assessment/Plan: Assessment (1) Anemia ICD Codes: D64.9 - Anemia, unspecified SNOMED: 896478450 (2) Respiratory failure ICD Codes: J96.90 - Respiratory failure, unspecified, unspecified whether with hypoxia or hypercapnia SNOMED: 220176190 Qualifiers: Qualified Codes: J96.01 - Acute respiratory failure with hypoxia; J96.02 - Acute respiratory failure with hypercapnia (3) End stage renal disease on dialysis ICD Codes: N18.6 - End stage renal disease; Z99.2 - Dependence on renal dialysis SNOMED: [id number] Status: unchanged Assessment/Plan Macrocytic anemia OB stool positive, stable H&H s/p EGD colonoscopy in Oct 2018 >> esophageal ulcer, 2 colon polyps hold endoscopy at this time PRN transfusions PPI + Carafate Reglan ATC GTFs per RD - will order and replace GT in am GT site care follow labs Subjective Allergies: Coded Allergies: No Known Allergies (Unverified , 05/11/18) Subjective above noted intubated back in ICU getting HD tolerating TF non communicative Objective Last 24 Hour Vital Signs Date Time Temp Pulse Resp B/P (MAP) Pulse Ox O2 Delivery O2 Flow Rate FiO2 02/23/19 11:00 76 22 116/37 (63) 100 02/23/19 10:59 80 28 100 Mechanical Ventilator 40 02/23/19 10:50 40 02/23/19 10:49 77 30 100 Mechanical Ventilator 40 02/23/19 10:45 78 30 40 02/23/19 10:00 78 22 142/28 (66) 100 02/23/19 09:28 130/54 02/23/19 09:28 91 130/40 02/23/19 09:06 74 22 40 02/23/19 09:00 Mechanical Ventilator 02/23/19 09:00 76 21 136/34 (68) 100 02/23/19 08:00 75 21 124/25 (58) 100 02/23/19 08:00 75 02/23/19 07:03 77 24 100 Mechanical Ventilator 40 02/23/19 07:00 97.8 74 21 120/35 (63) 100 02/23/19 06:55 40 02/23/19 06:53 78 24 100 Mechanical Ventilator 40 02/23/19 06:31 78 24 40 02/23/19 06:00 76 21 125/30 (61) 100 02/23/19 05:12 77 19 40 02/23/19 05:00 79 21 130/35 (66) 100 02/23/19 04:00 73 19 124/35 (64) 100 02/23/19 04:00 70 02/23/19 03:34 74 17 100 Mechanical Ventilator 40 02/23/19 03:34 70 02/23/19 03:25 67 22 40 02/23/19 03:24 67 22 40 Mechanical Ventilator 70 02/23/19 03:00 74 18 96/27 (50) 100 02/23/19 02:00 81 20 144/64 (90) 100 02/23/19 01:07 73 22 40 02/23/19 01:00 70 20 132/54 (80) 100 02/23/19 00:00 95 02/23/19 00:00 70 22 100 Mechanical Ventilator 70 02/23/19 00:00 65 20 156/53 (87) 100 02/23/19 00:00 70 02/22/19 23:45 63 19 100 Mechanical Ventilator 70 02/22/19 23:00 77 20 120/23 (55) 100 02/22/19 22:49 77 21 80 02/22/19 22:04 100 Mechanical Ventilator 100 02/22/19 22:00 65 20 124/53 (76) 100 02/22/19 22:00 80 02/22/19 21:30 67 23 100 02/22/19 21:15 187/50 02/22/19 21:00 70 20 156/38 (77) 100 02/22/19 21:00 Mechanical Ventilator 02/22/19 20:00 97.0 85 20 184/53 (96) 94 02/22/19 20:00 90 02/22/19 19:50 68 22 100 02/22/19 16:00 83 02/22/19 16:00 97.7 82 23 154/80 (104) 95 02/22/19 12:00 97.7 68 21 143/61 (88) 99 Intake and Output 02/22/19 02/23/19 19:00 07:00 Intake Total 925 ml Output Total 200 ml Balance -200 ml 925 ml Intake Free Water 330 ml IV Total 55 ml Tube Feeding 540 ml Output Urine Total 200 ml # Bowel Movements 5 Laboratory Tests 02/22/19 20:01: Arterial Blood pH 7.280L, Arterial Blood Partial Pressure CO2 50.0H, Arterial Blood Partial Pressure O2 280.8H, Arterial Blood HCO3 23.0, Arterial Blood Oxygen Saturation 99.3, Arterial Blood Base Excess -3.8L, Zachary Test Positive 02/22/19 21:00: Arterial Blood pH 7.407, Arterial Blood Partial Pressure CO2 37.7, Arterial Blood Partial Pressure O2 383.2H, Arterial Blood HCO3 23.2, Arterial Blood Oxygen Saturation 99.6, Arterial Blood Base Excess -1.3, Zachary Test Positive 02/22/19 21:20: White Blood Count 12.1H, Red Blood Count 2.45L, Hemoglobin 7.9L, Hematocrit 23.0L, Mean Corpuscular Volume 94, Mean Corpuscular Hemoglobin 32.2H, Mean Corpuscular Hemoglobin Concent 34.3, Red Cell Distribution Width 14.5, Platelet Count 174, Mean Platelet Volume 4.6L, Neutrophils (%) (Auto) , Lymphocytes (%) ( Auto) , Monocytes (%) (Auto) , Eosinophils (%) (Auto) , Basophils (%) (Auto) , Sodium Level 130L, Potassium Level 3.9, Chloride Level 92L, Carbon Dioxide Level 27, Anion Gap 11, Blood Urea Nitrogen 92H, Creatinine 3.8H, Estimat Glomerular Filtration Rate , Glucose Level 234H, Lactic Acid Level 1.20, Calcium Level 9.1, Total Bilirubin 0.8, Aspartate Amino Transf (AST/SGOT) 27, Alanine Aminotransferase (ALT/SGPT) 28, Alkaline Phosphatase 98, Ammonia 17, Pro -B-Type Natriuretic Peptide > 99636B, Total Protein 7.8, Albumin 3.0L, Globulin 4.8, Albumin/Globulin Ratio 0.6L 02/22/19 22:30: Arterial Blood pH 7.401, Arterial Blood Partial Pressure CO2 44.8, Arterial Blood Partial Pressure O2 259.0H, Arterial Blood HCO3 27.2H, Arterial Blood Oxygen Saturation 99.3, Arterial Blood Base Excess 2.1H, Zachary Test Positive 02/23/19 04:50: White Blood Count 12.8H, Red Blood Count 2.16L, Hemoglobin 7.0L, Hematocrit 21.3L, Mean Corpuscular Volume 98, Mean Corpuscular Hemoglobin 32.4H, Mean Corpuscular Hemoglobin Concent 32.9, Red Cell Distribution Width 15.2H, Platelet Count 178, Mean Platelet Volume 6.0L, Neutrophils (%) (Auto) , Lymphocytes (%) (Auto) , Monocytes (%) (Auto) , Eosinophils (%) (Auto) , Basophils (%) (Auto) , Differential Total Cells Counted 100, Neutrophils % ( Manual) 84H, Lymphocytes % (Manual) 7L, Monocytes % (Manual) 4, Eosinophils % ( Manual) 2, Basophils % (Manual) 0, Band Neutrophils 3, Platelet Estimate Adequate, Platelet Morphology Normal, Anisocytosis 1+, Sodium Level 131L, Potassium Level 3.6, Chloride Level 92L, Carbon Dioxide Level 26, Anion Gap 14, Blood Urea Nitrogen 97H, Creatinine 4.0H, Estimat Glomerular Filtration Rate , Glucose Level 127#H, Calcium Level 8.7, Phosphorus Level 3.5, Total Bilirubin 0.6, Aspartate Amino Transf (AST/SGOT) 30, Alanine Aminotransferase (ALT/SGPT) 27, Alkaline Phosphatase 84, Troponin I 0.125H, Total Protein 6.7, Albumin 2.8L , Globulin 3.9, Albumin/Globulin Ratio 0.7L 02/23/19 07:46: Arterial Blood pH 7.422, Arterial Blood Partial Pressure CO2 40.5, Arterial Blood Partial Pressure O2 94.9, Arterial Blood HCO3 25.8, Arterial Blood Oxygen Saturation 97.1, Arterial Blood Base Excess 1.3, Zachary Test Positive Height (Feet): 5 Height (Inches): 4.00 Weight (Pounds): 132 Objective Debilitated elderly AA woman NCAT supple CTA RR abd soft, Flat, (+) GT - repositioned no edema OBS Blaine Vidal MD February 23, 2019 12:00
--- NOTE | 2019-02-23 14:00 | NUR ---
NURSE NOTES: Patient turned and repositioned. No new orders at this time. Will continue plan of care.
--- NOTE | 2019-02-23 14:15 | Cardiology Report ---
APPROVED REPORT EXAM: Two-dimensional and M-mode echocardiogram with Doppler and color Doppler. INDICATION Congestive Heart Failure M-Mode DIMENSIONS IVSd1.0 (0.7-1.1cm)Left Atrium (MM)4.2 (1.6-4.0cm) LVDd4.8 (3.5-5.6cm)Aortic Root3.3 (2.0-3.7cm) PWd1.1 (0.7-1.1cm)Aortic Cusp Exc.2.1 (1.5-2.0cm) IVSs1.6 cm LVDs3.2 (2.5-4.0cm) PWs1.3 cm Technically difficult study due to combative patient . Normal left ventricular chamber size, systolic function and wall motion to extent visualized. Left ventricular ejection fraction estimated to be 60%. Mild left ventricular hypertrophy by 2-D. No evidence of pericardial effusion . All other cardiac chamber sizes are within normal limits. Aortic valve calcification with normal cusp excursion . Mildly thickened mitral valve leaflets with normal excursion. Mild mitral annulus and aortic root calcification. Pulmonic valve not well visualized. IVC at normal size with physiologic collapse . A color flow and spectral Doppler study was performed and revealed: No aortic insufficiency . Mitral diastolic velocities suggest reduced left ventricular relaxation c/w mild LV diastolic dysfunction (Grade I ) Trace mitral regurgitation. Trace tricuspid regurgitation. Tricuspid systolic velocities suggests peak right ventricular systolic pressure of 22mmHg. Trace pulmonic regurgitation .
--- NOTE | 2019-02-23 16:00 | NUR ---
NURSE NOTES: VSS. No distress noted. Will continue plan of care. Turned and repositioned.
--- NOTE | 2019-02-23 18:00 | NUR ---
NURSE NOTES: Changed and repositioned. No new orders. VSS. Patient opens eyes. No changes in condition. Will continue plan of care.
--- NOTE | 2019-02-23 19:08 | NUR ---
HAND-OFF: Report given to BACH RN using SBAR. VSS. No distress noted.
--- NOTE | 2019-02-23 19:20 | NUR ---
NURSE NOTES: Received report from WILIAM Palmer. Pt's on vent with ETT 7.5, 25 lipline, AC 14, TV 400, 40%, peep 5. SR on ekg monitor. VS stable. Noted GT intact, no residuals, running Nepro at 45ml/hr. Pt's anuric, HD on , , Saturday via Urinal. Noted sacral stage 2, multiple ecchymosis on bilateral arms. Pt has Right AC 22G. Bilateral soft wrists restraints noted. HOB kept elevated. Call light within reach. Will continue to monitor.
[2019-02-23] MEDS: LORazepam Inj 2mg/ml 1ml IV PRN (19:39)
[2019-02-23] MEDS ORDERED: Epoetin Alfa-EPBX(ESRD on dialysis)4000 units/ml vial SUBQ SCH (21:00)
[2019-02-23] MEDS: Iron Sucrose 100 MG in NS 55 ML IVPB SCH (21:10)
--- NOTE | 2019-02-23 22:00 | NUR ---
NURSE NOTES: Pt's resting in bed, in no acute distress. VS stable. Will continue to monitor.
[2019-02-24] VITALS (24 sets, daily range): BP systolic 99–144; BP diastolic 18–39
--- NOTE | 2019-02-24 | NUR ---
NURSE NOTES: Pt's resting in bed, asleep with eyes closed, in no acute distress. VS stable. Will continue to monitor.
[2019-02-24] MEDS: Albuterol/Ipratropium 3ml neb HHN SCH ×4 (01:14→18:51)
[2019-02-24] MEDS: NovoLOG Insulin Flexpen SUBQ SCH ×5 (01:32→23:59)
--- NOTE | 2019-02-24 02:00 | NUR ---
NURSE NOTES: Pt's resting in bed, asleep with eyes closed, in no acute distress. VS stable. Will continue to monitor.
--- NOTE | 2019-02-24 04:00 | NUR ---
NURSE NOTES: Pt's resting in bed, asleep with eyes closed, in no acute distress. VS stable. Will continue to monitor.
[2019-02-24 05:51] LABS: HEMATOCRIT 20.2 % (37.0-47.0); MEAN CORPUSCULAR VOLUME 99 FL (80-99); PLATELET COUNT 163 K/UL (150-450); RED BLOOD COUNT 2.05 M/UL (4.20-5.40); RED CELL DISTRIBUTION WIDTH 15.5 % (11.6-14.8)
--- NOTE | 2019-02-24 06:00 | NUR ---
NURSE NOTES: Pt's resting in bed, asleep with eyes closed, in no acute distress. VS stable. Will continue to monitor.
[2019-02-24 06:15] LABS: HEMOGLOBIN 6.5 G/DL (12.0-16.0)
[2019-02-24] MEDS: Piperacillin/Tazobactam 2.25 GM in D5W 55 ML IVPB SCH ×3 (06:15→21:39)
[2019-02-24 06:32] LABS: ANION GAP 9 mmol/L (5-15); BLOOD UREA NITROGEN 56 mg/dL (7-18); CARBON DIOXIDE 31 MMOL/L (21-32); CHLORIDE 96 MMOL/L (98-107); CREATININE 2.9 MG/DL (0.55-1.30); POTASSIUM 3.4 MMOL/L (3.5-5.1); SODIUM 136 MMOL/L (136-145)
--- NOTE | 2019-02-24 07:17 | NUR ---
RESPIRATORY- Received Patient on Vent settings ACVC RR 14, VT 400, FIO2 40%, PEEP +5. Patient is intubated with 7.5 ETT at 23 cm at the lip, secured with anchorfast. Bilateral rhonchi breath sounds heard throughout lung garza. Suctioned large amounts of bloody secretions orally and through the ET tube. Alarms are on and audible. Vent plugged into red outlet. Will continue to closely monitor throughout the day.
--- NOTE | 2019-02-24 07:20 | NUR ---
HAND-OFF: Report given to WILIAM Taylor.
--- NOTE | 2019-02-24 07:30 | NUR ---
NURSE NOTES: Report received from Jeffrey Bolanos. Pt awake, confused, nonverbal. Pt on gambling monitor, SR. Pt orally intubated with ETT 7.5, 25 cm lip line, AC 14, TV 400, 40%, PEEP 5. GT with nepro held for GT replacement today. Rectal tube noted and intact with dark brown liquid stool. L AV shunt noted and intact with positive bruit and thrill. Pt is anuric and is on HD. RFA 22 G noted and intact. Bilateral soft wrist restraints noted and intact. Safety measures in place with bed locked and in lowest position, side rails x3 up and bed alarm on. Will continue to monitor and continue plan of care.
[2019-02-24] MEDS: LORazepam Inj 2mg/ml 1ml IV PRN ×3 (07:39→17:35)
--- NOTE | 2019-02-24 07:56 | NUR ---
NURSE NOTES: Left message for Dr Cannon for the pt H/H. This is the second attempt. Will continue to monitor.
--- NOTE | 2019-02-24 08:03 | Pulmonology Progress Note ---
Assessment/Plan Assessment/Plan 1. acute respiratory failure 2. End-stage renal failure, on dialysis. 3. COPD. 4. Schizophrenia. 5. Pulmonary edema, due to overload 6. Anemia of chronic kidney disease. 7. Sick sinus syndrome. 8. diabetes mellitus. PLAN acid base adequate vent noted and settings reviewed weaning trial if able- will need transfusion prior to initiation titrate oxygen as able HD with UF transfuse ? gi bleed monitor fluid status and imaging continue supportive care nutrition as tolerated follow up for change medications/laboratory data/nursing notes/ICU care reviewed in detail note reviewed and edited care discussed with RN and RT ICU time spent 45 minutes Subjective ROS Limited/Unobtainable: Yes Allergies: Coded Allergies: No Known Allergies (Unverified , 05/11/18) Subjective care noted on oxygen on vent respiratory noted no distress ICU care reviewed Objective Last 24 Hour Vital Signs Date Time Temp Pulse Resp B/P (MAP) Pulse Ox O2 Delivery O2 Flow Rate FiO2 02/24/19 07:00 76 19 108/29 (55) 100 02/24/19 06:53 94 25 97 Mechanical Ventilator 40 02/24/19 06:50 72 15 40 02/24/19 06:47 40 02/24/19 06:47 69 14 100 Mechanical Ventilator 40 02/24/19 06:00 74 19 124/23 (56) 100 02/24/19 05:00 75 19 124/27 (59) 100 02/24/19 04:34 69 15 40 02/24/19 04:00 83 02/24/19 04:00 75 19 112/27 (55) 100 02/24/19 03:21 75 20 40 02/24/19 03:00 74 19 129/20 (56) 100 02/24/19 02:00 70 19 103/21 (48) 100 02/24/19 01:22 66 14 100 Mechanical Ventilator 40 02/24/19 01:10 40 02/24/19 01:10 69 15 100 Mechanical Ventilator 40 02/24/19 01:09 69 17 40 02/24/19 01:00 70 19 115/25 (55) 100 02/24/19 00:00 69 19 110/30 (56) 100 02/24/19 00:00 80 02/23/19 23:22 76 19 40 02/23/19 23:00 69 19 114/19 (50) 100 02/23/19 22:33 40 02/23/19 22:06 75 21 40 02/23/19 22:00 73 19 150/23 (65) 100 02/23/19 21:10 137/14 02/23/19 21:00 Mechanical Ventilator 02/23/19 21:00 98.5 73 19 142/23 (62) 100 02/23/19 20:00 70 19 122/19 (53) 100 02/23/19 20:00 70 02/23/19 19:44 67 19 100 Mechanical Ventilator 40 02/23/19 19:25 40 02/23/19 19:24 72 18 100 Mechanical Ventilator 40 02/23/19 19:21 70 18 40 02/23/19 19:00 70 19 135/30 (65) 100 02/23/19 18:00 65 19 138/26 (63) 100 02/23/19 17:00 67 21 135/26 (62) 100 02/23/19 16:31 66 17 40 02/23/19 16:00 98.4 82 21 130/25 (60) 100 02/23/19 16:00 88 02/23/19 15:00 80 21 133/23 (59) 100 02/23/19 14:38 83 19 40 02/23/19 14:00 76 21 135/24 (61) 100 02/23/19 13:52 Mechanical Ventilator 02/23/19 13:50 Mechanical Ventilator 02/23/19 13:00 75 22 132/35 (67) 100 02/23/19 12:40 81 23 40 02/23/19 12:00 80 02/23/19 12:00 98.5 77 22 122/40 (67) 100 02/23/19 11:00 76 22 116/37 (63) 100 02/23/19 10:59 80 28 100 Mechanical Ventilator 40 02/23/19 10:50 40 02/23/19 10:49 77 30 100 Mechanical Ventilator 40 02/23/19 10:45 78 30 40 02/23/19 10:00 78 22 142/28 (66) 100 02/23/19 09:28 130/54 02/23/19 09:28 91 130/40 02/23/19 09:06 74 22 40 02/23/19 09:00 Mechanical Ventilator 02/23/19 09:00 76 21 136/34 (68) 100 Intake and Output 02/23/19 02/24/19 19:00 07:00 Intake Total 495 ml 530 ml Output Total 2000 ml Balance -1505 ml 530 ml Intake Free Water 180 ml IV Total 170 ml Tube Feeding 495 ml 180 ml Hemodialysis UF 2000 ml # Bowel Movements 1 Objective WDWN on vent ETT in place reduced breath sounds bilaterally without rhonchi or wheeze [id number] without MRG NABS nontender no HSM no CC mild edema nonfocal and sedated reviewed and edited Microbiology Date/Time Source Procedure Growth Status 02/23/19 04:00 Sputum Gram Stain - Final Resulted 02/23/19 04:00 Sputum Sputum Culture - Preliminary NORMAL UPPER RESPIRATORY SILVER PRESENT Resulted 02/23/19 04:50 Stool Clostridium difficile Toxin Assay - Final Complete Laboratory Tests 02/24/19 05:00: White Blood Count 7.0, Red Blood Count 2.05L, Hemoglobin 6.5*L, Hematocrit 20.2L , Mean Corpuscular Volume 99, Mean Corpuscular Hemoglobin 31.9H, Mean Corpuscular Hemoglobin Concent 32.3, Red Cell Distribution Width 15.5H, Platelet Count 163, Mean Platelet Volume 5.3L, Neutrophils (%) (Auto) , Lymphocytes (%) (Auto) , Monocytes (%) (Auto) , Eosinophils (%) (Auto) , Basophils (%) (Auto) , Neutrophils % (Manual) [Pending], Lymphocytes % (Manual) [Pending], Platelet Estimate [Pending], Platelet Morphology [Pending], Sodium Level 136, Potassium Level 3.4L, Chloride Level 96L, Carbon Dioxide Level 31, Anion Gap 9, Blood Urea Nitrogen 56H, Creatinine 2.9H, Estimat Glomerular Filtration Rate , Glucose Level 76, Calcium Level 9.0, Troponin I 0.090H, Random Vancomycin Level 17.1 Current Medications Medications (Trade) Dose Ordered Sig/Konrad Route PRN Reason Start Time Stop Time Status Last Admin Dose Admin Acetaminophen (Tylenol) 650 mg Q4H PRN GT Mild Pain/Temp > 100.5 02/20/19 18:00 03/16/19 17:59 02/22/19 21:18 Acetylcysteine (Mucomyst) 100 mg TIDRT HHN 02/23/19 07:00 03/25/19 06:59 02/24/19 06:52 Albuterol/ Ipratropium (Albuterol/ Ipratropium) 3 ml Q6HRT HHN 02/23/19 19:00 02/27/19 22:59 02/24/19 06:52 Amlodipine Besylate (Norvasc) 10 mg DAILY GT 02/21/19 09:00 03/17/19 08:59 02/23/19 09:28 Dextrose (Dextrose 50%) 25 ml Q30M PRN IV Hypoglycemia 02/20/19 17:45 03/16/19 15:14 Dextrose (Dextrose 50%) 50 ml Q30M PRN IV Hypoglycemia 02/20/19 17:45 03/16/19 15:14 Epoetin Chau (Epoetin Chau(ESRD on dialysis)) 8,000 unit SAT-SAT-SAT SUBQ 02/23/19 21:00 03/25/19 20:59 02/23/19 21:11 Heparin Sodium (Porcine) (Heparin 5000 units/ml) 5,000 units EVERY 12 HOURS SUBQ 02/20/19 21:00 03/16/19 20:59 02/23/19 21:11 Heparin Sodium (Porcine) (Heparin Sod 1000 units/ml 10ml) 2,000 unit NEEDED PRN IV dialysis use 02/20/19 17:45 02/25/19 17:44 Insulin Aspart (NovoLOG) EVERY 6 HOURS SUBQ 02/20/19 18:00 03/16/19 16:29 02/24/19 01:32 Iron Sucrose 100 mg/Sodium Chloride 60 ml @ 240 mls/hr BEDTIME IVPB 02/23/19 21:00 02/27/19 21:14 02/23/19 21:10 Lansoprazole (Prevacid) 30 mg DAILY GT 02/21/19 09:00 03/21/19 08:59 02/23/19 09:28 Levothyroxine Sodium (Synthroid) 150 mcg DAILY@0630 GT 02/21/19 06:30 03/17/19 06:29 02/24/19 06:20 Lorazepam (Ativan 2mg/ml 1ml) 1 mg Q2H PRN IV For Anxiety/Agitation 02/22/19 21:30 03/01/19 21:29 02/24/19 07:39 Metoclopramide HCl (Reglan) 5 mg Q6H PRN IVP Nausea & Vomiting 02/20/19 18:00 03/20/19 17:59 Minoxidil (Loniten) 2.5 mg Q12HR GT 02/20/19 21:00 03/16/19 20:59 02/23/19 21:10 Ondansetron HCl (Zofran) 4 mg Q6H PRN IVP Nausea & Vomiting 02/20/19 18:00 03/19/19 17:59 Piperacillin Sod/ Tazobactam Sod 2.25 gm/Dextrose 55 ml @ 110 mls/hr Q8HR IVPB 02/21/19 22:00 02/26/19 21:59 02/24/19 06:15 Sucralfate (Carafate) 1 gm FOUR TIMES A DAY GT 02/20/19 18:00 03/17/19 08:59 02/23/19 21:09 Vancomycin HCl (Vanco rx to dose) 1 ea DAILY PRN MISC Per rx protocol 02/22/19 21:30 03/24/19 21:29 Vancomycin HCl 750 mg/Sodium Chloride 275 ml @ 183.333 mls/hr ONCE ONCE IVPB 02/24/19 09:00 02/24/19 10:29 Jac Ramirez MD February 24, 2019 08:03
[2019-02-24] MEDS: Minoxidil 2.5mg tab GT SCH ×2 (08:19→20:43)
[2019-02-24] MEDS: Sucralfate 1gm tab GT SCH ×2 (08:19→12:23)
[2019-02-24] MEDS: Heparin 5000 units/ml inj SUBQ SCH ×2 (08:20→20:45)
--- NOTE | 2019-02-24 08:34 | NUR ---
NURSE NOTES: Dr Ramirez here to see pt. Discussed critical H/H. ordered 2 U PRBC to be transfused. Will continue to monitor.
[2019-02-24] MEDS ORDERED: Vancomycin 750mg/NS 275ml IVPB ONE ×2 (09:00)
--- NOTE | 2019-02-24 09:14 | NUR ---
Currently holding off on weaning because patient is sedated. Will continue with weaning when appropriate.
--- NOTE | 2019-02-24 10:01 | NUR ---
NURSE NOTES: Pt given ativan IV for agitation. Suctioned bloody secretions via ETT. No acute distress. Will continue to monitor.
--- NOTE | 2019-02-24 12:03 | NUR ---
RD ASSESSMENT & RECOMMENDATIONS SEE CARE ACTIVITY FOR COMPLETE ASSESSMENT DAILY ESTIMATED NEEDS: Needs based on ESRD/ HD, UNDERWEIGHT, WOUND, CRITICAL CARE/ 52.7kg 25-32 kcals/kg 6079-3089 total kcals 1.25-1.8 g protein/kg 66-95 g total protein Fluid per MD, on HD mL/kg . 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 * Increased kcal/prot needs R/T renal dysfunction, ESRD, wound healing, underweight status as evidenced by pt on HD, admitted w/ sacral partial thickness wound per storage consultant, low BMI per guidelines, pt @ 89% IBW. CURRENT TF:Nepro @ 45ml/hr x 22 hrs-> NPO AT THIS TIME FOR GT REPLACEMENT ENTERAL NUTRITION RECOMMENDATIONS: Nepro @ 40ml/hr x 22 hrs to provide 880ml, 1584kcal, 71g prot, 640ml free water * DECREASE TF goal rate to 40ml/hr x 22 hrs -> pt is now intubated * Hold 1 hr before and after Synthroid med * HOB over 30 degrees/ water flush per MD ADDITIONAL RECOMMENDATIONS: * Per SNF record: HT=66", IO=790pft (02/09/19) -> rec calibrated bedscale wt. Current bedscale reads 63.6kg (130lbs) * Obtain dry wt post HD * F/UP w/ WC eval for sacral wound -> continue Zeke 1pkt BID * Probiotics for diarrhea
--- NOTE | 2019-02-24 12:32 | NUR ---
NURSE NOTES: Helder here to see pt. eHlder will order protonix drip. First unit PRBC currently running. No acute distress. Will continue to monitor.
--- NOTE | 2019-02-24 12:32 | GI Progress Note ---
Assessment/Plan Problems: (1) Anemia ICD Codes: D64.9 - Anemia, unspecified SNOMED: 955215499 (2) Respiratory failure ICD Codes: J96.90 - Respiratory failure, unspecified, unspecified whether with hypoxia or hypercapnia SNOMED: 227614146 Qualifiers: Qualified Codes: J96.01 - Acute respiratory failure with hypoxia; J96.02 - Acute respiratory failure with hypercapnia (3) End stage renal disease on dialysis ICD Codes: N18.6 - End stage renal disease; Z99.2 - Dependence on renal dialysis SNOMED: 549488686 Status: unchanged Status Narrative Discussed with Dr. Taylor. Assessment/Plan Macrocytic anemia OB stool positive s/p EGD colonoscopy in Oct 2018 >> esophageal ulcer, 2 colon polyps actively bleeding from GT site EGD scheduled for tomorrow, 2 MD to consent. - maintain NPO + IVFs - start ppi gtt PRN transfusions GTFs per RD GT site care follow labs The patient was seen and examined at bedside and all new and available data was reviewed in the patients chart. I agree with the above findings, impression and plan. (Patient seen earlier today. Signature stamp does not reflect patient encounter time.). - Hilton Taylor MD Subjective Subjective Limited Objective Last 24 Hour Vital Signs Date Time Temp Pulse Resp B/P (MAP) Pulse Ox O2 Delivery O2 Flow Rate FiO2 02/24/19 12:00 70 17 122/27 (58) 100 02/24/19 12:00 68 02/24/19 11:08 70 16 40 02/24/19 11:00 71 15 118/24 (55) 100 02/24/19 10:00 68 16 106/23 (50) 100 02/24/19 09:13 74 15 40 02/24/19 09:00 Mechanical Ventilator 02/24/19 09:00 75 17 113/18 (49) 100 02/24/19 08:19 108/29 02/24/19 08:19 76 108/29 02/24/19 08:00 74 02/24/19 08:00 98.6 75 16 103/18 (46) 100 02/24/19 07:00 76 19 108/29 (55) 100 02/24/19 06:53 94 25 97 Mechanical Ventilator 40 02/24/19 06:50 72 15 40 02/24/19 06:47 40 02/24/19 06:47 69 14 100 Mechanical Ventilator 40 02/24/19 06:00 74 19 124/23 (56) 100 02/24/19 05:00 75 19 124/27 (59) 100 02/24/19 04:34 69 15 40 02/24/19 04:00 83 02/24/19 04:00 75 19 112/27 (55) 100 02/24/19 03:21 75 20 40 02/24/19 03:00 74 19 129/20 (56) 100 02/24/19 02:00 70 19 103/21 (48) 100 02/24/19 01:22 66 14 100 Mechanical Ventilator 40 02/24/19 01:10 40 02/24/19 01:10 69 15 100 Mechanical Ventilator 40 02/24/19 01:09 69 17 40 02/24/19 01:00 70 19 115/25 (55) 100 02/24/19 00:00 69 19 110/30 (56) 100 02/24/19 00:00 80 02/23/19 23:22 76 19 40 02/23/19 23:00 69 19 114/19 (50) 100 02/23/19 22:33 40 02/23/19 22:06 75 21 40 02/23/19 22:00 73 19 150/23 (65) 100 02/23/19 21:10 137/14 02/23/19 21:00 Mechanical Ventilator 02/23/19 21:00 98.5 73 19 142/23 (62) 100 02/23/19 20:00 70 19 122/19 (53) 100 02/23/19 20:00 70 02/23/19 19:44 67 19 100 Mechanical Ventilator 40 02/23/19 19:25 40 02/23/19 19:24 72 18 100 Mechanical Ventilator 40 02/23/19 19:21 70 18 40 02/23/19 19:00 70 19 135/30 (65) 100 02/23/19 18:00 65 19 138/26 (63) 100 02/23/19 17:00 67 21 135/26 (62) 100 02/23/19 16:31 66 17 40 02/23/19 16:00 98.4 82 21 130/25 (60) 100 02/23/19 16:00 88 02/23/19 15:00 80 21 133/23 (59) 100 02/23/19 14:38 83 19 40 02/23/19 14:00 76 21 135/24 (61) 100 02/23/19 13:52 Mechanical Ventilator 02/23/19 13:50 Mechanical Ventilator 02/23/19 13:00 75 22 132/35 (67) 100 02/23/19 12:40 81 23 40 Intake and Output 02/23/19 02/24/19 19:00 07:00 Intake Total 495 ml 530 ml Output Total 2000 ml Balance -1505 ml 530 ml Intake Free Water 180 ml IV Total 170 ml Tube Feeding 495 ml 180 ml Hemodialysis UF 2000 ml # Bowel Movements 1 Laboratory Tests Test 02/24/19 05:00 White Blood Count 7.0 K/UL (4.8-10.8) Red Blood Count 2.05 M/UL (4.20-5.40) L Hemoglobin 6.5 G/DL (12.0-16.0) *L Hematocrit 20.2 % (37.0-47.0) L Mean Corpuscular Volume 99 FL (80-99) Mean Corpuscular Hemoglobin 31.9 PG (27.0-31.0) H Mean Corpuscular Hemoglobin Concent 32.3 G/DL (32.0-36.0) Red Cell Distribution Width 15.5 % (11.6-14.8) H Platelet Count 163 K/UL (150-450) Mean Platelet Volume 5.3 FL (6.5-10.1) L Neutrophils (%) (Auto) % (45.0-75.0) Lymphocytes (%) (Auto) % (20.0-45.0) Monocytes (%) (Auto) % (1.0-10.0) Eosinophils (%) (Auto) % (0.0-3.0) Basophils (%) (Auto) % (0.0-2.0) Differential Total Cells Counted 100 Neutrophils % (Manual) 86 % (45-75) H Lymphocytes % (Manual) 11 % (20-45) L Monocytes % (Manual) 2 % (1-10) Eosinophils % (Manual) 1 % (0-3) Basophils % (Manual) 0 % (0-2) Band Neutrophils 0 % (0-8) Platelet Estimate Adequate Platelet Morphology Normal Anisocytosis 1+ Sodium Level 136 MMOL/L (136-145) Potassium Level 3.4 MMOL/L (3.5-5.1) L Chloride Level 96 MMOL/L (98-107) L Carbon Dioxide Level 31 MMOL/L (21-32) Anion Gap 9 mmol/L (5-15) Blood Urea Nitrogen 56 mg/dL (7-18) H Creatinine 2.9 MG/DL (0.55-1.30) H Estimat Glomerular Filtration Rate mL/min (>60) Glucose Level 76 MG/DL (74-106) Calcium Level 9.0 MG/DL (8.5-10.1) Troponin I 0.090 ng/mL (0.000-0.056) Random Vancomycin Level 17.1 ug/mL Height (Feet): 5 Height (Inches): 4.00 Weight (Pounds): 130 General Appearance: alert Cardiovascular: normal rate Respiratory/Chest: normal breath sounds, no respiratory distress, other - intubated Abdominal Exam: normal bowel sounds, non tender, soft, GT site - c/d/i Extremities: non-tender Janene Ellis NP February 24, 2019 12:32
--- NOTE | 2019-02-24 12:47 | Diagnostic Imaging Report ---
Indication: Dyspnea Comparison: 02/22/2019 A single view chest radiograph was obtained. Findings: Pulmonary vascular congestion and interstitial edema demonstrated with cardiomegaly. Bilateral pleural effusion suspected. Endotracheal tube position remains satisfactory. IMPRESSION: Mild to moderate CHF/interstitial edema. There may be slight improvement since the last exam
[2019-02-24] MEDS: Pantoprazole 80 MG in NS 250 ML IV SCH ×2 (14:36→23:58)
--- NOTE | 2019-02-24 14:39 | NUR ---
NURSE NOTES: Second unit PRBC transfusing. Two additional IVs inserted on right arm. VSS. Will continue to monitor.
--- NOTE | 2019-02-24 16:51 | NUR ---
NURSE NOTES: Dr Cannon here to see pt. will order dialysis for tomorrow. VSS. No acute distress. Will continue to monitor.
--- NOTE | 2019-02-24 16:54 | Nephrology Progress Note ---
Assessment/Plan Plan Respiratory Failure due to CHF + Pneumonia, m/p due to aspiration. See orders. CHF --- HD+UF MWF Pneumonia - IV Abx. Recurrent Aspiration episodes - GI to advise Repeat CXR shows worsening CHF!!! Subjective Subjective In ICU. Coded + intubated to to Cyanotic Respiratory Failure. Getting blood transfusion. Objective Objective Last 24 Hour Vital Signs Date Time Temp Pulse Resp B/P (MAP) Pulse Ox O2 Delivery O2 Flow Rate FiO2 02/24/19 16:47 66 15 40 02/24/19 16:00 77 02/24/19 16:00 98.0 70 15 144/27 (66) 100 02/24/19 15:16 77 19 40 02/24/19 15:00 64 16 129/31 (63) 100 02/24/19 14:00 68 16 134/26 (62) 96 02/24/19 13:19 64 14 100 Mechanical Ventilator 40 02/24/19 13:17 64 17 40 02/24/19 13:11 40 02/24/19 13:11 65 14 100 Mechanical Ventilator 40 02/24/19 13:00 98.2 63 16 99/22 (47) 100 02/24/19 12:00 70 17 122/27 (58) 100 02/24/19 12:00 68 02/24/19 11:08 70 16 40 02/24/19 11:00 71 15 118/24 (55) 100 02/24/19 10:00 68 16 106/23 (50) 100 02/24/19 09:13 74 15 40 02/24/19 09:00 Mechanical Ventilator 02/24/19 09:00 75 17 113/18 (49) 100 02/24/19 08:19 108/29 02/24/19 08:19 76 108/29 02/24/19 08:00 74 02/24/19 08:00 98.6 75 16 103/18 (46) 100 02/24/19 07:00 76 19 108/29 (55) 100 02/24/19 06:53 94 25 97 Mechanical Ventilator 40 02/24/19 06:50 72 15 40 02/24/19 06:47 40 02/24/19 06:47 69 14 100 Mechanical Ventilator 40 02/24/19 06:00 74 19 124/23 (56) 100 02/24/19 05:00 75 19 124/27 (59) 100 02/24/19 04:34 69 15 40 02/24/19 04:00 83 02/24/19 04:00 75 19 112/27 (55) 100 02/24/19 03:21 75 20 40 02/24/19 03:00 74 19 129/20 (56) 100 02/24/19 02:00 70 19 103/21 (48) 100 02/24/19 01:22 66 14 100 Mechanical Ventilator 40 02/24/19 01:10 40 02/24/19 01:10 69 15 100 Mechanical Ventilator 40 02/24/19 01:09 69 17 40 02/24/19 01:00 70 19 115/25 (55) 100 02/24/19 00:00 69 19 110/30 (56) 100 02/24/19 00:00 80 02/23/19 23:22 76 19 40 02/23/19 23:00 69 19 114/19 (50) 100 02/23/19 22:33 40 02/23/19 22:06 75 21 40 02/23/19 22:00 73 19 150/23 (65) 100 02/23/19 21:10 137/14 02/23/19 21:00 Mechanical Ventilator 02/23/19 21:00 98.5 73 19 142/23 (62) 100 02/23/19 20:00 70 19 122/19 (53) 100 02/23/19 20:00 70 02/23/19 19:44 67 19 100 Mechanical Ventilator 40 02/23/19 19:25 40 02/23/19 19:24 72 18 100 Mechanical Ventilator 40 02/23/19 19:21 70 18 40 02/23/19 19:00 70 19 135/30 (65) 100 02/23/19 18:00 65 19 138/26 (63) 100 02/23/19 17:00 67 21 135/26 (62) 100 Intake and Output 02/23/19 02/24/19 19:00 07:00 Intake Total 495 ml 530 ml Output Total 2000 ml Balance -1505 ml 530 ml Intake Free Water 180 ml IV Total 170 ml Tube Feeding 495 ml 180 ml Hemodialysis UF 2000 ml # Bowel Movements 1 Laboratory Tests 02/24/19 05:00: White Blood Count 7.0, Red Blood Count 2.05L, Hemoglobin 6.5*L, Hematocrit 20.2L , Mean Corpuscular Volume 99, Mean Corpuscular Hemoglobin 31.9H, Mean Corpuscular Hemoglobin Concent 32.3, Red Cell Distribution Width 15.5H, Platelet Count 163, Mean Platelet Volume 5.3L, Neutrophils (%) (Auto) , Lymphocytes (%) (Auto) , Monocytes (%) (Auto) , Eosinophils (%) (Auto) , Basophils (%) (Auto) , Differential Total Cells Counted 100, Neutrophils % ( Manual) 86H, Lymphocytes % (Manual) 11L, Monocytes % (Manual) 2, Eosinophils % ( Manual) 1, Basophils % (Manual) 0, Band Neutrophils 0, Platelet Estimate Adequate, Platelet Morphology Normal, Anisocytosis 1+, Sodium Level 136, Potassium Level 3.4L, Chloride Level 96L, Carbon Dioxide Level 31, Anion Gap 9, Blood Urea Nitrogen 56H, Creatinine 2.9H, Estimat Glomerular Filtration Rate , Glucose Level 76, Calcium Level 9.0, Troponin I 0.090H, Random Vancomycin Level 17.1 Height (Feet): 5 Height (Inches): 4.00 Weight (Pounds): 130 Objective Intubated, on vent. GT to suctio -coffee ground effluent. Rectal tube dark effluent. CV RR Lungs B ronchi + wheezes. Abd SNT. BS + E No CCE Raul Cannon MD February 24, 2019 16:54
[2019-02-24] MEDS ORDERED: Heparin Sod 1000 units/ml 10ml IV PRN (17:00)
--- NOTE | 2019-02-24 18:01 | NUR ---
NURSE NOTES: Turned and repositioned pt. Oral care done and pt suctioned. VSS. Will continue to monitor.
--- NOTE | 2019-02-24 18:50 | NUR ---
RESPIRATORY NOTE: Patient received mechanically ventilated on PB 840 with current ordered vent settings. Patient is orally intubated with size 7.5 ETT tube and 23cm at the lip line that is secured with an anchor fast. There is an ambu bag available at the bedside and the vent is connected to a red outlet. Vent alarms are functional and audible. Will continue to monitor patient.
--- NOTE | 2019-02-24 19:18 | NUR ---
HAND-OFF: Report given to Zayda SWAIN.
--- NOTE | 2019-02-24 19:30 | NUR ---
NURSE NOTES:Received pt resting well at tis time, pt was previously sedated , orally intubated, on AC mode, bilateral soft wrist restraints on for safety to avoid self extubation. Sinus Samir on the monitor, mds are aware. Bp stable. afebrile. NPO at this time due to blackish and pinkish drainage fom GT and rectal tube as well as low H and H. For EGD in am. Pt is a HD pt. AV shunt Left arm with good bruit and schadule for HD in am. pt is anuric as well. PT has scattered lg ecchymosis to left arms and other extremities. Pressure sore as well in sacral area been noted. Pt on P200 mattress. TX done with pts pressure sore.- On Ptonix drip at 8mg/hr 0r 25ml/hr infusing to Left AC. site atraumatic. - Will continue to monitor.
[2019-02-24] MEDS: Iron Sucrose 100 MG in NS 55 ML IVPB SCH (20:42)
--- NOTE | 2019-02-24 20:45 | NUR ---
NURSE NOTES:Heparin subcut not given due to pts bleeding.
--- NOTE | 2019-02-24 21:30 | NUR ---
NURSE NOTES:Turned q 2hrs prn with good skin care done.
--- NOTE | 2019-02-24 23:00 | NUR ---
NURSE NOTES:Still On SB 58-60/min. bp stable.
[2019-02-25] VITALS (24 sets, daily range): BP systolic 103–153; BP diastolic 19–87
--- NOTE | 2019-02-25 | NUR ---
NURSE NOTES:Accucheck 107mg/dl- No coverage.
[2019-02-25] MEDS: LORazepam Inj 2mg/ml 1ml IV PRN ×2 (00:19→12:34)
--- NOTE | 2019-02-25 00:19 | NUR ---
NURSE NOTES:Ativan 1mg ivp given due to pts anxiety and agitation
[2019-02-25] MEDS: Albuterol/Ipratropium 3ml neb HHN SCH ×4 (00:53→19:22)
--- NOTE | 2019-02-25 02:00 | NUR ---
NURSE NOTES:Resting well at this time with vss.
--- NOTE | 2019-02-25 04:00 | NUR ---
NURSE NOTES:Complete bath with complete bed changed done.
[2019-02-25 05:00] LABS: HEMATOCRIT 21.8 % (37.0-47.0); HEMOGLOBIN 7.1 G/DL (12.0-16.0); MEAN CORPUSCULAR VOLUME 98 FL (80-99); PLATELET COUNT 170 K/UL (150-450); RED BLOOD COUNT 2.23 M/UL (4.20-5.40); RED CELL DISTRIBUTION WIDTH 15.7 % (11.6-14.8); WHITE BLOOD COUNT 12.9 K/UL (4.8-10.8)
[2019-02-25 05:07] LABS: ANION GAP 8 mmol/L (5-15); BLOOD UREA NITROGEN 66 mg/dL (7-18); CARBON DIOXIDE 29 MMOL/L (21-32); CHLORIDE 97 MMOL/L (98-107); CREATININE 3.8 MG/DL (0.55-1.30); POTASSIUM 3.4 MMOL/L (3.5-5.1); SODIUM 134 MMOL/L (136-145)
[2019-02-25 05:15] LABS: INR 1.1 (0.9-1.1)
[2019-02-25] MEDS: NovoLOG Insulin Flexpen SUBQ SCH ×3 (05:32→18:00)
[2019-02-25] MEDS: Piperacillin/Tazobactam 2.25 GM in D5W 55 ML IVPB SCH ×3 (05:32→23:49)
--- NOTE | 2019-02-25 06:00 | NUR ---
NURSE NOTES:Keep pt NPO, for EGD this am.
--- NOTE | 2019-02-25 06:25 | Anethesia Preoperative Eval ---
Anesthesia Pre-op PMH/ROS General Date of Evaluation: February 25, 2019 Time of Evaluation: 06:22 Anesthesiologist: bre ASA Score: ASA 4 Mallampati Score Class I : Soft palate, uvula, fauces, pillars visible Class II: Soft palate, uvula, fauces visible Class III: Soft palate, base of uvula visible Class IV: Only hard plate visible Mallampati Classification: Class II Surgeon: nola Diagnosis: anemia Surgical Procedure: egd Anesthesia History: none Family History: no anesthesia problems Allergies: Coded Allergies: No Known Allergies (Unverified , 05/11/18) Medications: see eMAR Patient NPO?: Yes Past Medical History Cardiovascular: Reports: HTN Pulmonary: Reports: asthma Gastrointestinal/Genitourinary: Reports: GERD, ESRD Neurologic/Psychiatric: Reports: dementia, depression/anxiety, other - organic brain syndrome Endocrine: Reports: hypothyroidism Hematology/Immune: Reports: anemia Musculoskeletal/Integumentary: Reports: OA Anesthesia Pre-op Phys. Exam Physician Exam Last Vital Signs Date Time Temp Pulse Resp B/P (MAP) Pulse Ox O2 Delivery O2 Flow Rate FiO2 02/25/19 04:45 54 14 40 02/25/19 01:03 100 Mechanical Ventilator 02/25/19 01:00 138/30 (66) 02/25/19 00:00 98.0 02/22/19 09:00 4.0 Constitutional: NAD Neurologic: CN 2-12 intact Cardiovascular: RRR Respiratory: other - mechanical ventilator dependent Gastrointestinal: other - g-tube Airway Exam Mallampati Score: Class II MO: limited Neck: flexible TMD: oett ROM: limited Anesthesia Pre-op A/P Labs Hematology Test 02/25/19 04:35 White Blood Count 12.9 K/UL (4.8-10.8) #H Red Blood Count 2.23 M/UL (4.20-5.40) L Hemoglobin 7.1 G/DL (12.0-16.0) L Hematocrit 21.8 % (37.0-47.0) L Mean Corpuscular Volume 98 FL (80-99) Mean Corpuscular Hemoglobin 31.9 PG (27.0-31.0) H Mean Corpuscular Hemoglobin Concent 32.6 G/DL (32.0-36.0) Red Cell Distribution Width 15.7 % (11.6-14.8) H Platelet Count 170 K/UL (150-450) Mean Platelet Volume 5.1 FL (6.5-10.1) L Neutrophils (%) (Auto) % (45.0-75.0) Lymphocytes (%) (Auto) % (20.0-45.0) Monocytes (%) (Auto) % (1.0-10.0) Eosinophils (%) (Auto) % (0.0-3.0) Basophils (%) (Auto) % (0.0-2.0) Neutrophils % (Manual) Pending Lymphocytes % (Manual) Pending Platelet Estimate Pending Platelet Morphology Pending Coagulation Test 02/25/19 04:35 Prothrombin Time 11.9 SEC (9.30-11.50) H Prothromb Time International Ratio 1.1 (0.9-1.1) Activated Partial Thromboplast Time 39 SEC (23-33) H Chemistry Test 02/25/19 04:35 Sodium Level 134 MMOL/L (136-145) L Potassium Level 3.4 MMOL/L (3.5-5.1) L Chloride Level 97 MMOL/L (98-107) L Carbon Dioxide Level 29 MMOL/L (21-32) Anion Gap 8 mmol/L (5-15) Blood Urea Nitrogen 66 mg/dL (7-18) H Creatinine 3.8 MG/DL (0.55-1.30) H Estimat Glomerular Filtration Rate mL/min (>60) Glucose Level 110 MG/DL (74-106) H Calcium Level 9.0 MG/DL (8.5-10.1) Risk Assessment & Plan Assessment: asa4 Plan: mac Status Change Before Surgery: No Pre-Antibiotics Drug: Miriam Walker MD February 25, 2019 06:25
[2019-02-25] MEDS ORDERED: Atropine Inj 1mg/10ml Syr IV PRN (06:30)
[2019-02-25] MEDS ORDERED: Midazolam 2mg/2ml Inj IVP PRN (06:30)
[2019-02-25] MEDS ORDERED: fentaNYL 100 mcg/2 mL IV PRN (06:30)
[2019-02-25] MEDS ORDERED: DiphenhydrAMINE 50mg/ml Inj IVP PRN (06:30)
--- NOTE | 2019-02-25 06:54 | GI Progress Note ---
Assessment/Plan Problems: (1) Anemia ICD Codes: D64.9 - Anemia, unspecified SNOMED: 504099421 (2) Diabetes ICD Codes: E11.9 - Type 2 diabetes mellitus without complications SNOMED: 73784554 (3) CHF (congestive heart failure) ICD Codes: I50.9 - Heart failure, unspecified SNOMED: 65392594 (4) Respiratory failure ICD Codes: J96.90 - Respiratory failure, unspecified, unspecified whether with hypoxia or hypercapnia SNOMED: 813633880 Qualifiers: Qualified Codes: J96.01 - Acute respiratory failure with hypoxia; J96.02 - Acute respiratory failure with hypercapnia Assessment/Plan patient has evidence of upper GIB no family around to sign consent will proceed with 2 md consent Subjective Gastrointestinal/Abdominal: Reports: black stools Objective Last 24 Hour Vital Signs Date Time Temp Pulse Resp B/P (MAP) Pulse Ox O2 Delivery O2 Flow Rate FiO2 02/25/19 05:00 56 14 132/23 (59) 100 02/25/19 04:45 54 14 40 02/25/19 04:00 98.2 58 14 136/22 (60) 100 02/25/19 03:00 59 14 131/30 (63) 100 02/25/19 02:45 63 15 40 02/25/19 02:00 59 14 131/28 (62) 100 02/25/19 01:03 61 18 100 Mechanical Ventilator 40 02/25/19 01:00 59 14 138/30 (66) 100 02/25/19 00:53 40 02/25/19 00:53 61 14 100 Mechanical Ventilator 40 02/25/19 00:42 61 14 40 02/25/19 00:00 64 02/25/19 00:00 40 02/25/19 00:00 98.0 64 16 131/26 (61) 100 02/24/19 23:00 60 14 127/30 (62) 100 02/24/19 22:46 62 14 40 02/24/19 22:00 58 14 122/36 (64) 100 02/24/19 21:06 56 14 40 02/24/19 21:00 Mechanical Ventilator 02/24/19 21:00 59 14 132/39 (70) 100 02/24/19 20:43 119/26 02/24/19 20:00 98.2 58 14 119/26 (57) 100 02/24/19 19:01 62 14 100 Mechanical Ventilator 40 02/24/19 19:00 65 14 111/27 (55) 100 02/24/19 18:53 40 02/24/19 18:51 62 15 100 Mechanical Ventilator 40 02/24/19 18:45 62 15 40 02/24/19 18:00 65 15 127/25 (59) 100 02/24/19 17:00 70 15 135/23 (60) 100 02/24/19 16:47 66 15 40 02/24/19 16:00 77 02/24/19 16:00 98.0 70 15 144/27 (66) 100 02/24/19 15:16 77 19 40 02/24/19 15:00 64 16 129/31 (63) 100 02/24/19 14:00 68 16 134/26 (62) 96 02/24/19 13:19 64 14 100 Mechanical Ventilator 40 02/24/19 13:17 64 17 40 02/24/19 13:11 40 02/24/19 13:11 65 14 100 Mechanical Ventilator 40 02/24/19 13:00 98.2 63 16 99/22 (47) 100 02/24/19 12:00 70 17 122/27 (58) 100 02/24/19 12:00 68 02/24/19 11:08 70 16 40 02/24/19 11:00 71 15 118/24 (55) 100 02/24/19 10:00 68 16 106/23 (50) 100 02/24/19 09:13 74 15 40 02/24/19 09:00 Mechanical Ventilator 02/24/19 09:00 75 17 113/18 (49) 100 02/24/19 08:19 108/29 02/24/19 08:19 76 108/29 02/24/19 08:00 74 02/24/19 08:00 98.6 75 16 103/18 (46) 100 02/24/19 07:00 76 19 108/29 (55) 100 02/24/19 06:53 94 25 97 Mechanical Ventilator 40 Intake and Output 02/24/19 02/25/19 19:00 07:00 Intake Total 168 ml Balance 168 ml IV Total 168 ml # Bowel Movements 1 1 Laboratory Tests Test 02/25/19 04:35 White Blood Count 12.9 K/UL (4.8-10.8) #H Red Blood Count 2.23 M/UL (4.20-5.40) L Hemoglobin 7.1 G/DL (12.0-16.0) L Hematocrit 21.8 % (37.0-47.0) L Mean Corpuscular Volume 98 FL (80-99) Mean Corpuscular Hemoglobin 31.9 PG (27.0-31.0) H Mean Corpuscular Hemoglobin Concent 32.6 G/DL (32.0-36.0) Red Cell Distribution Width 15.7 % (11.6-14.8) H Platelet Count 170 K/UL (150-450) Mean Platelet Volume 5.1 FL (6.5-10.1) L Neutrophils (%) (Auto) % (45.0-75.0) Lymphocytes (%) (Auto) % (20.0-45.0) Monocytes (%) (Auto) % (1.0-10.0) Eosinophils (%) (Auto) % (0.0-3.0) Basophils (%) (Auto) % (0.0-2.0) Neutrophils % (Manual) Pending Lymphocytes % (Manual) Pending Platelet Estimate Pending Platelet Morphology Pending Prothrombin Time 11.9 SEC (9.30-11.50) H Prothromb Time International Ratio 1.1 (0.9-1.1) Activated Partial Thromboplast Time 39 SEC (23-33) H Sodium Level 134 MMOL/L (136-145) L Potassium Level 3.4 MMOL/L (3.5-5.1) L Chloride Level 97 MMOL/L (98-107) L Carbon Dioxide Level 29 MMOL/L (21-32) Anion Gap 8 mmol/L (5-15) Blood Urea Nitrogen 66 mg/dL (7-18) H Creatinine 3.8 MG/DL (0.55-1.30) H Estimat Glomerular Filtration Rate mL/min (>60) Glucose Level 110 MG/DL (74-106) H Calcium Level 9.0 MG/DL (8.5-10.1) Height (Feet): 5 Height (Inches): 3.00 Weight (Pounds): 130 General Appearance: lethargic Cardiovascular: normal rate Respiratory/Chest: decreased breath sounds Abdominal Exam: normal bowel sounds, non tender, soft Extremities: non-tender Hilton Taylor MD February 25, 2019 06:54
[2019-02-25] MEDS ORDERED: Propofol 200mg/20ml IV ONE (07:00)
[2019-02-25] MEDS ORDERED: NS 500ML IVPB ONE (07:00)
[2019-02-25] MEDS ORDERED: Lidocaine 1% MPF 10mg/ml 5ml ONE (07:00)
--- NOTE | 2019-02-25 07:00 | NUR ---
RESPIRATORY NOTE: Patient received mechanically ventilated on PB 840 with current ordered vent settings. Patient is orally intubated and is secured with an anchor fast. Vitals and 02 sat are WNL and there is not pt distress noted. There is an ambu bag available at the bedside and the vent is connected to a red outlet. Vent alarms are functional and audible. Will continue to monitor.
--- NOTE | 2019-02-25 07:05 | Pre-Procedure Note/Attestation ---
Pre-Procedure Note/Attestation Complete Prior to Procedure Planned Procedure: not applicable Procedure Narrative: egd Indications for Procedure Pre-Operative Diagnosis: gib Attestation I attest that I discussed the nature of the procedure; its benefits; risks and complications; and alternatives (and the risks and benefits of such alternatives ), prior to the procedure, with the patient (or the patient's legal pharmaceutical service representative). I attest that, if there was a reasonable possibility of needing a blood transfusion, the patient (or the patient's legal pharmaceutical service representative) was given the [facility] standardized written summary, pursuant to the Jony Fanny Blood Safety Act ([place] Health and Safety Code # 1645, as amended). I attest that I re-evaluated the patient just prior to the surgery and that there has been no change in the patient's H&P, except as documented below: Hilton Taylor MD February 25, 2019 07:05
--- NOTE | 2019-02-25 07:10 | NUR ---
NURSE NOTES: Patient received getting prepared for early procedure EGD. Patient arousable, still sedated. Orally intubated with settings AC-14, TV-400, FiO2-40%, PEEP-5, saturating 96%. Respirations even and unlabored. Bilateral soft restraints in place, skin intact and pulses present. Patient NPO. Left Arm AV shunt with positive bruit and thrill. Heels off loaded. Sinus Rhythm on the monitor. Procedure will take place soon at bedside.
--- NOTE | 2019-02-25 07:24 | NUR ---
HAND-OFF: Report given to Sarahi HEREDIA.
--- NOTE | 2019-02-25 07:31 | NUR ---
NURSE NOTES: Procedure finished. Received orders from Dr. Taylor. Noted and carried out.
--- NOTE | 2019-02-25 07:48 | Endoscopy Procedure Note ---
Endoscopy Procedure Note General Indication for Procedure: gib Procedures Performed: EGD Operative Findings/Diagnosis: necrotic esophagus/bleeding Specimen: none Pt Tolerated Procedure Well: Yes Estimated Blood Loss: none Anesthesia Anesthesiologist: bre Anesthesia: MAC Inserted Devices Implant(s) used?: No GI Core Measures 50 yrs or older w/o bx or poly: Not Applicable 10yrs. F/U recommended: Not Applicable Hilton Taylor MD February 25, 2019 07:48
--- NOTE | 2019-02-25 08:45 | Immediate Post-Op Evaluation ---
Immediate Post-Op Evalulation Immediate Post-Op Evalulation Procedure: egd Date of Evaluation: February 25, 2019 Time of Evaluation: 07:49 IV Fluids: 125ml 0.9ns Blood Products: none Estimated Blood Loss: negligible Blood Pressure Systolic: 139 Blood Pressure Diastolic: 24 Pulse Rate: 67 Respiratory Rate: 14 O2 Sat by Pulse Oximetry: 100 Temperature (Fahrenheit): 98.1 Pain Score (1-10): 0 Nausea: No Vomiting: No Complications none Patient Status: awake, reacts, patent, ventilated Hydration Status: adequate Drug: Miriam Walker MD February 25, 2019 08:45
--- NOTE | 2019-02-25 08:47 | 48 Hour Post Anesthesia Eval ---
Post Anesthesia Evaluation Procedure: egd Date of Evaluation: February 25, 2019 Time of Evaluation: 08:00 Blood Pressure Systolic: 114 0: 28 Pulse Rate: 60 Respiratory Rate: 14 Temperature (Fahrenheit): 98.1 O2 Sat by Pulse Oximetry: 100 Airway: patent Nausea: No Vomiting: No Pain Intensity: 0 Hydration Status: adequate Cardiopulmonary Status: stable Mental Status/LOC: patient returned to baseline Post-Anesthesia Complications: none Follow-up care needed: N/A Miriam Harris MD February 25, 2019 08:47
[2019-02-25] MEDS: Minoxidil 2.5mg tab GT SCH ×2 (08:56→21:00)
[2019-02-25] MEDS: Pantoprazole 80 MG in NS 250 ML IV SCH ×2 (08:57→20:16)
[2019-02-25] MEDS: Heparin 5000 units/ml inj SUBQ SCH ×2 (09:00→21:00)
[2019-02-25] MEDS ORDERED: Zemuron 50mg/5ml Inj IV ONE (09:48)
[2019-02-25] MEDS ORDERED: Etomidate 40mg/20ml Inj IV ONE (09:48)
--- NOTE | 2019-02-25 10:00 | NUR ---
NURSE NOTES: Patient remains asleep, no complains at this time. Respirations even and unlabored. No signs of pain noted.
--- NOTE | 2019-02-25 10:18 | NUR ---
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
--- NOTE | 2019-02-25 11:15 | NUR ---
Social Work This SW met with patient, currently in the ICU, who is intubated, sedated. Patient is from [facility]. This SW made an attempt to speak with contact, Cousin: Giorgi Hitchcock ([phone]), which is not an accurate number: this was cousins work phone number, which this SW was informed cousin no longer works there; has retired. This SW spoke with Medical Records, Sanaz @ [facility] who explains they do not have any other contact numbers/information (patient does not have an Advance Directive or was able to sign her own POLST). Patient currently remains full code, full treatment. Patient has a friend listed as a contact: Bogdan Archuleta: [phone] (this SW made an attempt to contact this number; no answer or voicemail available at this time). Bioethics to be consulted, as needed, due to patient is not able to verbalize decision making at this time (and there is no other family known).
--- NOTE | 2019-02-25 11:26 | Nephrology Progress Note ---
Assessment/Plan Plan Respiratory Failure due to CHF + Pneumonia, m/p due to aspiration. EGD necrotizing esophgitis! CHF --- HD+UF MWF Pneumonia - IV Abx. Repeat CXR shows worsening CHF!!! Subjective Subjective In ICU. s/p EGD. Objective Objective Last 24 Hour Vital Signs Date Time Temp Pulse Resp B/P (MAP) Pulse Ox O2 Delivery O2 Flow Rate FiO2 02/25/19 11:00 67 14 122/25 (57) 100 02/25/19 10:58 67 14 40 02/25/19 10:00 64 15 123/23 (56) 100 02/25/19 09:15 60 15 40 02/25/19 09:00 57 14 128/21 (56) 100 02/25/19 09:00 Mechanical Ventilator 02/25/19 08:56 121/25 02/25/19 08:55 59 121/25 02/25/19 08:47 60 14 100 02/25/19 08:45 67 14 100 02/25/19 08:00 98.1 60 14 114/28 (56) 100 02/25/19 08:00 72 02/25/19 07:03 55 14 100 Mechanical Ventilator 40 02/25/19 07:00 58 14 140/32 (68) 100 02/25/19 06:55 56 14 100 Mechanical Ventilator 40 02/25/19 06:55 40 02/25/19 06:49 56 14 40 02/25/19 06:00 54 14 137/32 (67) 100 02/25/19 05:00 56 14 132/23 (59) 100 02/25/19 04:45 54 14 40 02/25/19 04:00 58 02/25/19 04:00 98.2 58 14 136/22 (60) 100 02/25/19 03:00 59 14 131/30 (63) 100 02/25/19 02:45 63 15 40 02/25/19 02:00 59 14 131/28 (62) 100 02/25/19 01:03 61 18 100 Mechanical Ventilator 40 02/25/19 01:00 59 14 138/30 (66) 100 02/25/19 00:53 40 02/25/19 00:53 61 14 100 Mechanical Ventilator 40 02/25/19 00:42 61 14 40 02/25/19 00:00 64 02/25/19 00:00 40 02/25/19 00:00 98.0 64 16 131/26 (61) 100 02/24/19 23:00 60 14 127/30 (62) 100 02/24/19 22:46 62 14 40 02/24/19 22:00 58 14 122/36 (64) 100 02/24/19 21:06 56 14 40 02/24/19 21:00 Mechanical Ventilator 02/24/19 21:00 59 14 132/39 (70) 100 02/24/19 20:43 119/26 02/24/19 20:00 98.2 58 14 119/26 (57) 100 02/24/19 19:01 62 14 100 Mechanical Ventilator 40 02/24/19 19:00 65 14 111/27 (55) 100 02/24/19 18:53 40 02/24/19 18:51 62 15 100 Mechanical Ventilator 40 02/24/19 18:45 62 15 40 02/24/19 18:00 65 15 127/25 (59) 100 02/24/19 17:00 70 15 135/23 (60) 100 02/24/19 16:47 66 15 40 02/24/19 16:00 77 02/24/19 16:00 98.0 70 15 144/27 (66) 100 02/24/19 15:16 77 19 40 02/24/19 15:00 64 16 129/31 (63) 100 02/24/19 14:00 68 16 134/26 (62) 96 02/24/19 13:19 64 14 100 Mechanical Ventilator 40 02/24/19 13:17 64 17 40 02/24/19 13:11 40 02/24/19 13:11 65 14 100 Mechanical Ventilator 40 02/24/19 13:00 98.2 63 16 99/22 (47) 100 02/24/19 12:00 70 17 122/27 (58) 100 02/24/19 12:00 68 Intake and Output 02/24/19 02/25/19 19:00 07:00 Intake Total 168 ml 355 ml Balance 168 ml 355 ml IV Total 168 ml 355 ml # Bowel Movements 1 1 Laboratory Tests 02/25/19 04:35: White Blood Count 12.9#H, Red Blood Count 2.23L, Hemoglobin 7.1L, Hematocrit 21.8L, Mean Corpuscular Volume 98, Mean Corpuscular Hemoglobin 31.9H, Mean Corpuscular Hemoglobin Concent 32.6, Red Cell Distribution Width 15.7H, Platelet Count 170, Mean Platelet Volume 5.1L, Neutrophils (%) (Auto) , Lymphocytes (%) (Auto) , Monocytes (%) (Auto) , Eosinophils (%) (Auto) , Basophils (%) (Auto) , Differential Total Cells Counted 100, Neutrophils % ( Manual) 89H, Lymphocytes % (Manual) 6L, Monocytes % (Manual) 4, Eosinophils % ( Manual) 1, Basophils % (Manual) 0, Band Neutrophils 0, Platelet Estimate Adequate, Platelet Morphology Normal, Hypochromasia 3+, Anisocytosis 1+, Spherocytes 1+, Prothrombin Time 11.9H, Prothromb Time International Ratio 1.1, Activated Partial Thromboplast Time 39H, Sodium Level 134L, Potassium Level 3.4L , Chloride Level 97L, Carbon Dioxide Level 29, Anion Gap 8, Blood Urea Nitrogen 66H, Creatinine 3.8H, Estimat Glomerular Filtration Rate , Glucose Level 110H, Calcium Level 9.0 Height (Feet): 5 Height (Inches): 3.00 Weight (Pounds): 130 Objective Intubated, on vent. GT to suctio -coffee ground effluent. Rectal tube dark effluent. CV RR Lungs B ronchi + wheezes. Abd SNT. BS + E No CCE Raul Cannon MD February 25, 2019 11:26
[2019-02-25] MEDS: Sucralfate 1gm tab GT SCH ×2 (11:41→17:11)
--- NOTE | 2019-02-25 12:15 | NUR ---
NURSE NOTES: Called [facility], spoke to Corina, followed on HD for today, callback should be expected.
--- NOTE | 2019-02-25 12:16 | NUR ---
NURSE NOTES: Patient agitated, squiggling and squirming in bed, bucking the vent. Reorientation and redirection provided. Measures failing. Restraints remain place for safety. Will give PRN ativan as necessary.
--- NOTE | 2019-02-25 13:00 | NUR ---
NURSE NOTES: Call back received from [facility], HD nurse is coming today.
--- NOTE | 2019-02-25 14:00 | NUR ---
NURSE NOTES: Patient comfortable, calm, arousable. Oral suctioning provided, thick secretions. Patient repositioned, heels offloaded.
--- NOTE | 2019-02-25 15:13 | Pulmonolgy Critical Care Note ---
Critical Care - Asmt/Plan Assessment/Plan: Pulmonary CCM Progress Note Assessment/Plan 1. acute respiratory failure 2. End-stage renal failure, on dialysis. 3. COPD. 4. Schizophrenia. 5. Pulmonary edema, due to overload 6. Anemia of chronic kidney disease. 7. Sick sinus syndrome. 8. diabetes mellitus. PLAN acid base adequate vent noted and settings reviewed weaning trial if able- will need transfusion prior to initiation titrate oxygen as able HD with UF transfuse ? gi bleed monitor fluid status and imaging continue supportive care nutrition as tolerated follow up for change medications/laboratory data/nursing notes/ICU care reviewed in detail note reviewed and edited care discussed with RN and RT ICU time spent 45 minutes Subjective ROS Limited/Unobtainable: Yes Allergies: Coded Allergies: No Known Allergies (Unverified , 05/11/18) Subjective care noted on oxygen on vent respiratory noted no distress ICU care reviewed Objective Vital Signs Noted Objective WDWN on vent ETT in place reduced breath sounds bilaterally without rhonchi or wheeze [id number] without MRG NABS nontender no HSM no CC mild edema nonfocal and sedated reviewed and edited Microbiology Date/Time Source Procedure Growth Status 02/23/19 04:00 Sputum Gram Stain - Final Resulted 02/23/19 04:00 Sputum Sputum Culture - Preliminary NORMAL UPPER RESPIRATORY SILVER PRESENT Resulted 02/23/19 04:50 Stool Clostridium difficile Toxin Assay - Final Complete Laboratory Tests 02/24/19 05:00: White Blood Count 7.0, Red Blood Count 2.05L, Hemoglobin 6.5*L, Hematocrit 20.2L , Mean Corpuscular Volume 99, Mean Corpuscular Hemoglobin 31.9H, Mean Corpuscular Hemoglobin Concent 32.3, Red Cell Distribution Width 15.5H, Platelet Count 163, Mean Platelet Volume 5.3L, Neutrophils (%) (Auto) , Lymphocytes (%) (Auto) , Monocytes (%) (Auto) , Eosinophils (%) (Auto) , Basophils (%) (Auto) , Neutrophils % (Manual) [Pending], Lymphocytes % (Manual) [Pending], Platelet Estimate [Pending], Platelet Morphology [Pending], Sodium Level 136, Potassium Level 3.4L, Chloride Level 96L, Carbon Dioxide Level 31, Anion Gap 9, Blood Urea Nitrogen 56H, Creatinine 2.9H, Estimat Glomerular Filtration Rate , Glucose Level 76, Calcium Level 9.0, Troponin I 0.090H, Random Vancomycin Level 17.1 Current Medications Medications (Trade) Dose Ordered Sig/Konrad Route PRN Reason Start Time Stop Time Status Last Admin Dose Admin Acetaminophen (Tylenol) 650 mg Q4H PRN GT Mild Pain/Temp > 100.5 02/20/19 18:00 03/16/19 17:59 02/22/19 21:18 Acetylcysteine (Mucomyst) 100 mg TIDRT N 02/23/19 07:00 03/25/19 06:59 02/24/19 06:52 Albuterol/ Ipratropium (Albuterol/ Ipratropium) 3 ml Q6HRT N 02/23/19 19:00 02/27/19 22:59 02/24/19 06:52 Amlodipine Besylate (Norvasc) 10 mg DAILY GT 02/21/19 09:00 03/17/19 08:59 02/23/19 09:28 Dextrose (Dextrose 50%) 25 ml Q30M PRN IV Hypoglycemia 02/20/19 17:45 03/16/19 15:14 Dextrose (Dextrose 50%) 50 ml Q30M PRN IV Hypoglycemia 02/20/19 17:45 03/16/19 15:14 Epoetin Chau (Epoetin Chau(ESRD on dialysis)) 8,000 unit SAT-SAT-SAT SUBQ 02/23/19 21:00 03/25/19 20:59 02/23/19 21:11 Heparin Sodium (Porcine) (Heparin 5000 units/ml) 5,000 units EVERY 12 HOURS SUBQ 02/20/19 21:00 03/16/19 20:59 02/23/19 21:11 Heparin Sodium (Porcine) (Heparin Sod 1000 units/ml 10ml) 2,000 unit NEEDED PRN IV dialysis use 02/20/19 17:45 02/25/19 17:44 Insulin Aspart (NovoLOG) EVERY 6 HOURS SUBQ 02/20/19 18:00 03/16/19 16:29 02/24/19 01:32 Iron Sucrose 100 mg/Sodium Chloride 60 ml @ 240 mls/hr BEDTIME IVPB 02/23/19 21:00 02/27/19 21:14 02/23/19 21:10 Lansoprazole (Prevacid) 30 mg DAILY GT 02/21/19 09:00 03/21/19 08:59 02/23/19 09:28 Levothyroxine Sodium (Synthroid) 150 mcg DAILY@0630 GT 02/21/19 06:30 03/17/19 06:29 02/24/19 06:20 Lorazepam (Ativan 2mg/ml 1ml) 1 mg Q2H PRN IV For Anxiety/Agitation 02/22/19 21:30 03/01/19 21:29 02/24/19 07:39 Metoclopramide HCl (Reglan) 5 mg Q6H PRN IVP Nausea & Vomiting 02/20/19 18:00 03/20/19 17:59 Minoxidil (Loniten) 2.5 mg Q12HR GT 02/20/19 21:00 03/16/19 20:59 02/23/19 21:10 Ondansetron HCl (Zofran) 4 mg Q6H PRN IVP Nausea & Vomiting 02/20/19 18:00 03/19/19 17:59 Piperacillin Sod/ Tazobactam Sod 2.25 gm/Dextrose 55 ml @ 110 mls/hr Q8HR IVPB 02/21/19 22:00 02/26/19 21:59 02/24/19 06:15 Sucralfate (Carafate) 1 gm FOUR TIMES A DAY GT 02/20/19 18:00 03/17/19 08:59 02/23/19 21:09 Vancomycin HCl (Vanco rx to dose) 1 ea DAILY PRN MISC Per rx protocol 02/22/19 21:30 03/24/19 21:29 Vancomycin HCl 750 mg/Sodium Chloride 275 ml @ 183.333 mls/hr ONCE ONCE IVPB 02/24/19 09:00 02/24/19 10:29 Critical Care - Objective Last 24 Hour Vital Signs Date Time Temp Pulse Resp B/P (MAP) Pulse Ox O2 Delivery O2 Flow Rate FiO2 02/25/19 14:44 102 22 40 02/25/19 14:00 71 19 106/25 (52) 100 02/25/19 13:22 88 18 100 Mechanical Ventilator 40 02/25/19 13:08 72 20 40 02/25/19 13:05 40 02/25/19 13:05 74 20 98 Mechanical Ventilator 40 02/25/19 13:00 72 15 114/23 (53) 100 02/25/19 12:00 98.5 70 14 107/19 (48) 100 02/25/19 12:00 72 02/25/19 12:00 Mechanical Ventilator 02/25/19 11:00 67 14 122/25 (57) 100 02/25/19 10:58 67 14 40 02/25/19 10:00 64 15 123/23 (56) 100 02/25/19 09:15 60 15 40 02/25/19 09:00 57 14 128/21 (56) 100 02/25/19 09:00 Mechanical Ventilator 02/25/19 08:56 121/25 02/25/19 08:55 59 121/25 02/25/19 08:47 60 14 100 02/25/19 08:45 67 14 100 02/25/19 08:00 98.1 60 14 114/28 (56) 100 02/25/19 08:00 72 02/25/19 07:03 55 14 100 Mechanical Ventilator 40 02/25/19 07:00 58 14 140/32 (68) 100 02/25/19 06:55 56 14 100 Mechanical Ventilator 40 02/25/19 06:55 40 02/25/19 06:49 56 14 40 02/25/19 06:00 54 14 137/32 (67) 100 02/25/19 05:00 56 14 132/23 (59) 100 02/25/19 04:45 54 14 40 02/25/19 04:00 58 02/25/19 04:00 98.2 58 14 136/22 (60) 100 02/25/19 03:00 59 14 131/30 (63) 100 02/25/19 02:45 63 15 40 02/25/19 02:00 59 14 131/28 (62) 100 02/25/19 01:03 61 18 100 Mechanical Ventilator 40 02/25/19 01:00 59 14 138/30 (66) 100 02/25/19 00:53 40 02/25/19 00:53 61 14 100 Mechanical Ventilator 40 02/25/19 00:42 61 14 40 02/25/19 00:00 64 02/25/19 00:00 40 02/25/19 00:00 98.0 64 16 131/26 (61) 100 02/24/19 23:00 60 14 127/30 (62) 100 02/24/19 22:46 62 14 40 02/24/19 22:00 58 14 122/36 (64) 100 02/24/19 21:06 56 14 40 02/24/19 21:00 Mechanical Ventilator 02/24/19 21:00 59 14 132/39 (70) 100 02/24/19 20:43 119/26 02/24/19 20:00 98.2 58 14 119/26 (57) 100 02/24/19 19:01 62 14 100 Mechanical Ventilator 40 02/24/19 19:00 65 14 111/27 (55) 100 02/24/19 18:53 40 02/24/19 18:51 62 15 100 Mechanical Ventilator 40 02/24/19 18:45 62 15 40 02/24/19 18:00 65 15 127/25 (59) 100 02/24/19 17:00 70 15 135/23 (60) 100 02/24/19 16:47 66 15 40 02/24/19 16:00 77 02/24/19 16:00 98.0 70 15 144/27 (66) 100 02/24/19 15:16 77 19 40 Micro: Microbiology Date/Time Source Procedure Growth Status 02/23/19 04:00 Sputum Gram Stain - Final Complete 02/23/19 04:00 Sputum Sputum Culture - Final NORMAL UPPER RESPIRATORY SILVER PRESENT Complete 02/23/19 04:50 Stool Clostridium difficile Toxin Assay - Final Complete Accucheck: 101 Critical Care - Subjective ROS Limited/Unobtainable: Yes Condition: stable FI02: 40 Vent Support Breath Rate: 14 Vent Support Mode: AC Vent Tidal Volume: 400 Sputum Amount: Scant PEEP: 5.0 PIP: 24 I&O: Intake and Output 02/24/19 02/25/19 19:00 07:00 Intake Total 168 ml 355 ml Balance 168 ml 355 ml IV Total 168 ml 355 ml # Bowel Movements 1 1 ET-Tube: 7.5 ET Position: 23 Wilmer Palacios MD February 25, 2019 15:13
--- NOTE | 2019-02-25 16:00 | Procedure Note ---
DATE OF PROCEDURE: 02/25/2019 SURGEON: Hilton Taylor M.D. PROCEDURE: Upper endoscopy. ANESTHESIA: Per Dr. Samuel. INSTRUMENT: Olympus adult flexible upper endoscope. INDICATION: Upper GI bleeding. REASON FOR PROCEDURE: The procedure, risks, benefits, and possible consequences, including hemorrhage, aspiration, perforation and infection, and alternative treatments, were explained to the patient/legal guardian by Dr. Hilton Taylor and the patient/legal guardian understood and accepted these risks. DESCRIPTION OF PROCEDURE: After informed consent was obtained and the patient was adequately sedated, Olympus upper endoscope was advanced from mouth into the second portion of the duodenum and retroflexion was performed in the stomach. As soon as we entered the esophagus, there was blood clot sitting in the distal esophagus and proximal esophagus suggestive of most probably more proximal GI bleeding possibly esophageal bleeding. This examination was extremely limited given there was a clot covering the whole esophagus. As we entered the stomach and the duodenum, there was no active bleeding in the duodenal bulb. No bleeding in the antrum. No bleeding in the angularis. There was some blood clot sitting at the GE junction making examination of that area also limited. Then, we pushed the G-tube in to see if there is any ulceration on the G-tube. There was none. We pulled back the G-tube and went back to the esophagus looking for the source of bleeding. We tried to put a banding device at the tip of the scope and tried to push the clot from the esophagus into the stomach. That did not work because we could not pass the banding device through the upper esophagus and to the esophagus most probably basically narrowing in that area, we could not pass the banding device. Then, we tried Bran net to remove some of the clot. We were able to remove some, but not all of it. Finally after doing all that, we realized there was evidence of significant esophageal possibly necrosis in the distal esophagus most probably the source of bleeding, which we could not do anything endoscopically to control it. So at this time, we terminated the procedure. SUMMARY OF FINDINGS: This is a difficult endoscopy. Please see above for all the details, but most likely the patient is bleeding from the necrotic area in the distal esophagus. PLAN: 1. To keep the patient NPO. 2. Elevate the head of the bed at all times. 3. Continue on Protonix drip. 4. Monitor hemoglobin and hematocrit every 8 hours and transfuse to keep hemoglobin above 8. 5. Add Carafate 1 g every 6 hours. 6. We will re-evaluate for possible repeat endoscopy if the patient continues to bleed for tomorrow. I want to thank Dr. Cannon for this kind referral. Hilton Taylor M.D. DR: LAYTON JOB#: [id number] CC: Raul Cannon M.D.; Fax#: [phone]
--- NOTE | 2019-02-25 17:00 | NUR ---
NURSE NOTES: Patient repositioned. Small stain noted from rectal tube, output is dark colored, perineal care provided. Oral care provided, thick large amount of secretions noted, sometimes blood tinged. HOB at semi-saxena's position. Remains NPO. Respirations even and unlabored. Bilateral soft wrist restraints in place, patient is impulsive, tries to remove ET tube.
[2019-02-25 17:09] LABS: HEMATOCRIT 20.5 % (37.0-47.0); MEAN CORPUSCULAR VOLUME 92 FL (80-99); PLATELET COUNT 131 K/UL (150-450); RED BLOOD COUNT 2.23 M/UL (4.20-5.40); RED CELL DISTRIBUTION WIDTH 14.3 % (11.6-14.8); WHITE BLOOD COUNT 5.3 K/UL (4.8-10.8)
[2019-02-25 17:18] LABS: CHLORIDE 99 MMOL/L (98-107)
[2019-02-25 17:28] LABS: ANION GAP 11 mmol/L (5-15); BLOOD UREA NITROGEN 74 mg/dL (7-18); CALCIUM 8.6 MG/DL (8.5-10.1); CARBON DIOXIDE 28 MMOL/L (21-32); CREATININE 4.1 MG/DL (0.55-1.30); PHOSPHORUS 4.6 MG/DL (2.5-4.9); POTASSIUM 3.6 MMOL/L (3.5-5.1); SODIUM 138 MMOL/L (136-145)
[2019-02-25 17:32] LABS: HEMOGLOBIN 6.9 G/DL (12.0-16.0)
--- NOTE | 2019-02-25 18:45 | NUR ---
NURSE NOTES: 1 PRBC transfusion started, verified with Silvina Arthur RN. Vital signs taken and recorded.
--- NOTE | 2019-02-25 19:23 | NUR ---
HAND-OFF: Report given to WILIAM Xiao.
--- NOTE | 2019-02-25 19:25 | NUR ---
RESPIRATORY NOTE: Received pt on AC 14, 400VT, 40%, PEEP +5. Pt intubated w/ ETT 7.5 @ 23cm lipline, secured by anchorfast. Pt awake/disoriented, responds to stimuli. B/S deep. rhonchi, sxn moderate to copious amounts of thick, frothy, maxwell-brown secretions w/ occasional blood & red specks both in ETT & orally. Bite block in place as pt tends to bite down ETT. Both hands on soft restraints to prevent pt from self-extubation. Vent plugged into red outlet, ambubag at bedside. Pt resting comfortably, in no apparent distress at this time. Will continue to monitor pt.
--- NOTE | 2019-02-25 19:30 | NUR ---
NURSE NOTES: Received pt in no acute distress; awake, alert but confused. Orally intubated with #7.5ETT placed over left lip at 25cm; noted vent settings of AC 14 TV 400 fiO2 .40, peep 5, saturating 100%. Pt has copious oral secretions, blood tinged and also ETT secretions large, pinkish. Pt on bilateral soft wrist restraints. Noted scattered ecchymosis on BUE. Pt also has an AVGraft on GIANNI with strong bruit and thrill. GT clamped, remains NPO. Anuric. PIV site on RFA intact, 1 unit PRBC infusing without any reactions observed. [facility] HD RN here and will start dialysis soon.
[2019-02-25] MEDS ORDERED: Epoetin Alfa-EPBX (NON ESRD)10,000 unit/ml vial SUBQ SCH (21:00)
--- NOTE | 2019-02-25 21:30 | NUR ---
NURSE NOTES: Pt managed to pull dialysis needle(venous side) out despite restraints. Assisted HD nurse applying pressure to AVGraft site. mathematical sciences professor resumed treatment after incident.
[2019-02-25] MEDS: Iron Sucrose 100 MG in NS 55 ML IVPB SCH (23:48)
[2019-02-25] MEDS: Epoetin Alfa-EPBX(ESRD on dialysis)10,000 unit/ml vial SUBQ SCH (23:49)
[2019-02-26] VITALS (24 sets, daily range): BP systolic 95–152; BP diastolic 12–79
--- NOTE | 2019-02-26 | NUR ---
NURSE NOTES: HD RN endorsed pt back post HD; UF 1L. Well tolerated as reported. CBC drawn by Lab. Pt awake, mildly restless. Still with copious oral/ ETT secretions, blood tinged. Rectal tube intact, draining black colored liquid stool. VSS.
[2019-02-26] MEDS: Sucralfate 1gm tab GT SCH ×5 (00:08→23:50)
[2019-02-26] MEDS: NovoLOG Insulin Flexpen SUBQ SCH ×5 (00:10→23:52)
[2019-02-26] MEDS: LORazepam Inj 2mg/ml 1ml IV PRN ×2 (00:14→23:15)
[2019-02-26 00:51] LABS: HEMATOCRIT 23.3 % (37.0-47.0); HEMOGLOBIN 7.9 G/DL (12.0-16.0); MEAN CORPUSCULAR VOLUME 93 FL (80-99); PLATELET COUNT 140 K/UL (150-450); RED BLOOD COUNT 2.49 M/UL (4.20-5.40); RED CELL DISTRIBUTION WIDTH 15.2 % (11.6-14.8); WHITE BLOOD COUNT 11.2 K/UL (4.8-10.8)
--- NOTE | 2019-02-26 01:00 | NUR ---
NURSE NOTES: Complete bed bath done, GT site dressing changed. Continues on bilat soft wrist restraints. Pt calm at this tme. Ativan 0.5mg given earlier. Hgb 7.5 as reported by lab. Addendum: 02/26/19 at 0522 by KATHARINA BONE RN Hgb 7.9
[2019-02-26] MEDS: Albuterol/Ipratropium 3ml neb HHN SCH ×4 (01:20→19:15)
--- NOTE | 2019-02-26 03:00 | NUR ---
NURSE NOTES: Sleeping, no distress. PIV site intact. Oral care and suctioning done; still with blood tinged secretions orally. VSS
--- NOTE | 2019-02-26 05:24 | NUR ---
NURSE NOTES: Awake and agitated.No sedation given as pt will be weaned today. Still with copious secretions. Rectal tube intact, stools liquid black
[2019-02-26] MEDS: Piperacillin/Tazobactam 2.25 GM in D5W 55 ML IVPB SCH ×3 (05:43→23:14)
[2019-02-26] MEDS: Pantoprazole 80 MG in NS 250 ML IV SCH ×2 (05:43→17:10)
--- NOTE | 2019-02-26 07:00 | NUR ---
RESPIRATORY- Received Patient on Vent settings ACVC RR 14, VT 400, FIO2 40%, PEEP +5. Patient is intubated with 7.5 ETT at 23 cm at the lip, secured with anchorfast. Bilateral rhonchi breath sounds heard throughout lung garza. Suctioned small amounts of bloody secretions orally and through the ET tube. Alarms are on and audible. Vent plugged into red outlet. Will continue to closely monitor throughout the day.
--- NOTE | 2019-02-26 07:19 | NUR ---
HAND-OFF: Report given to Tracie SWAIN.
--- NOTE | 2019-02-26 08:45 | NUR ---
NURSE NOTES: Morning medication given by G-tube, weaning trial placed on hold at this time,
[2019-02-26] MEDS: Heparin 5000 units/ml inj SUBQ SCH ×2 (09:00→21:00)
--- NOTE | 2019-02-26 09:02 | NUR ---
Weaning criteria failed. Will not continue with Spontaneous Breathing Trial (SBT) trial. RN aware.
[2019-02-26] MEDS: Minoxidil 2.5mg tab GT SCH ×2 (09:45→21:18)
--- NOTE | 2019-02-26 10:00 | NUR ---
NURSE NOTES: Patient failed weaning with TV of 290ml, RR of 32-36 and NIF of -6. patient remains on 100 % with saturations with RR of 20-26, will continue to monitor.
[2019-02-26] MEDS ORDERED: Vancomycin 1.25gm Premix IVPB ONE (11:00)
--- NOTE | 2019-02-26 11:20 | GI Progress Note ---
Assessment/Plan Problems: (1) Anemia ICD Codes: D64.9 - Anemia, unspecified SNOMED: 807020604 (2) Respiratory failure ICD Codes: J96.90 - Respiratory failure, unspecified, unspecified whether with hypoxia or hypercapnia SNOMED: 002951921 Qualifiers: Qualified Codes: J96.01 - Acute respiratory failure with hypoxia; J96.02 - Acute respiratory failure with hypercapnia (3) End stage renal disease on dialysis ICD Codes: N18.6 - End stage renal disease; Z99.2 - Dependence on renal dialysis SNOMED: 346645033 Status: unchanged Status Narrative Discussed with Dr. Taylor. Assessment/Plan s/p EGD SUMMARY OF FINDINGS: Evidence of significant esophageal possibly necrosis in the distal esophagus most probably the source of bleeding, which we could not do anything endoscopically to control it. PLAN: Keep NPO strict aspiration precautions, elevate the head of the bed at all times. Continue on Protonix drip. Monitor hemoglobin and hematocrit every 8 hours and transfuse to keep hemoglobin above 8. Add Carafate 1 g every 6 hours. We will re-evaluate for possible repeat endoscopy if the patient continues to bleed for tomorrow. The patient was seen and examined at bedside and all new and available data was reviewed in the patients chart. I agree with the above findings, impression and plan. (Patient seen earlier today. Signature stamp does not reflect patient encounter time.). - Hilton Taylor MD Subjective Subjective Limited Objective Last 24 Hour Vital Signs Date Time Temp Pulse Resp B/P (MAP) Pulse Ox O2 Delivery O2 Flow Rate FiO2 02/26/19 11:04 83 21 40 02/26/19 11:00 76 19 152/67 (95) 100 02/26/19 10:00 78 19 114/54 (74) 95 02/26/19 09:45 119/61 02/26/19 09:45 74 119/61 02/26/19 09:00 73 15 133/19 (57) 100 02/26/19 08:59 78 21 40 02/26/19 08:00 Mechanical Ventilator 02/26/19 08:00 74 02/26/19 08:00 40 02/26/19 08:00 99.4 72 16 125/15 (51) 100 02/26/19 07:00 75 14 100 Mechanical Ventilator 40 02/26/19 07:00 71 14 127/16 (53) 100 02/26/19 06:56 71 20 40 02/26/19 06:52 77 14 100 Mechanical Ventilator 40 02/26/19 06:52 40 02/26/19 06:00 74 17 151/18 (62) 100 02/26/19 05:19 82 24 40 02/26/19 05:00 79 22 131/12 (51) 100 02/26/19 04:00 75 02/26/19 04:00 40 02/26/19 04:00 98.4 75 18 113/13 (46) 100 02/26/19 04:00 Mechanical Ventilator 02/26/19 03:00 85 20 116/65 (82) 99 02/26/19 02:58 85 20 40 02/26/19 02:00 81 20 143/12 (55) 99 02/26/19 01:30 84 16 100 Mechanical Ventilator 40 02/26/19 01:20 81 15 100 Mechanical Ventilator 40 02/26/19 01:20 40 02/26/19 01:20 81 15 40 02/26/19 01:00 81 18 95/41 (59) 99 02/26/19 00:00 Mechanical Ventilator 02/26/19 00:00 98.8 87 20 123/28 (59) 98 02/26/19 00:00 87 02/26/19 00:00 40 02/25/19 23:19 81 20 40 02/25/19 23:00 80 19 118/34 (62) 100 02/25/19 22:00 94 21 113/34 (60) 99 02/25/19 21:14 82 21 40 02/25/19 21:00 85 22 153/27 (69) 99 02/25/19 21:00 153/27 02/25/19 20:00 78 02/25/19 20:00 Mechanical Ventilator 02/25/19 20:00 40 02/25/19 20:00 78 18 135/19 (57) 100 02/25/19 19:37 76 19 100 Mechanical Ventilator 40 02/25/19 19:22 77 17 100 Mechanical Ventilator 40 02/25/19 19:22 40 02/25/19 19:20 77 17 40 02/25/19 19:00 75 16 131/21 (57) 100 02/25/19 18:00 74 16 129/19 (55) 100 02/25/19 17:20 70 16 40 02/25/19 17:00 98.5 72 20 117/19 (51) 100 02/25/19 16:00 74 20 103/37 (59) 100 02/25/19 16:00 Mechanical Ventilator 02/25/19 16:00 74 02/25/19 15:00 77 20 114/87 (96) 100 02/25/19 14:44 102 22 40 02/25/19 14:00 71 19 106/25 (52) 100 02/25/19 13:22 88 18 100 Mechanical Ventilator 40 02/25/19 13:08 72 20 40 02/25/19 13:05 40 02/25/19 13:05 74 20 98 Mechanical Ventilator 40 02/25/19 13:00 72 15 114/23 (53) 100 02/25/19 12:00 98.5 70 14 107/19 (48) 100 02/25/19 12:00 72 02/25/19 12:00 Mechanical Ventilator Intake and Output 02/25/19 02/26/19 19:00 07:00 Intake Total 550 ml 830 ml Output Total 250 ml 1550 ml Balance 300 ml -720 ml Intake Free Water 120 ml IV Total 430 ml 500 ml Blood Product 300 ml Other 30 ml Output Urine Total 0 ml 0 ml Stool Total 250 ml 550 ml Hemodialysis UF 1000 ml # Bowel Movements 3 Laboratory Tests Test 02/25/19 16:54 02/26/19 00:00 02/26/19 08:15 02/26/19 08:30 White Blood Count 5.3 K/UL (4.8-10.8) # 11.2 K/UL (4.8-10.8) #H Red Blood Count 2.23 M/UL (4.20-5.40) L 2.49 M/UL (4.20-5.40) L Hemoglobin 6.9 G/DL (12.0-16.0) *L 7.9 G/DL (12.0-16.0) L Hematocrit 20.5 % (37.0-47.0) L 23.3 % (37.0-47.0) L Mean Corpuscular Volume 92 FL (80-99) 93 FL (80-99) Mean Corpuscular Hemoglobin 31.1 PG (27.0-31.0) H 31.8 PG (27.0-31.0) H Mean Corpuscular Hemoglobin Concent 33.7 G/DL (32.0-36.0) 34.0 G/DL (32.0-36.0) Red Cell Distribution Width 14.3 % (11.6-14.8) 15.2 % (11.6-14.8) H Platelet Count 131 K/UL (150-450) L 140 K/UL (150-450) L Mean Platelet Volume 4.8 FL (6.5-10.1) L 5.5 FL (6.5-10.1) L Neutrophils (%) (Auto) % (45.0-75.0) % (45.0-75.0) Lymphocytes (%) (Auto) % (20.0-45.0) % (20.0-45.0) Monocytes (%) (Auto) % (1.0-10.0) % (1.0-10.0) Eosinophils (%) (Auto) % (0.0-3.0) % (0.0-3.0) Basophils (%) (Auto) % (0.0-2.0) % (0.0-2.0) Differential Total Cells Counted 100 100 Neutrophils % (Manual) 74 % (45-75) 87 % (45-75) H Lymphocytes % (Manual) 12 % (20-45) L 8 % (20-45) L Monocytes % (Manual) 10 % (1-10) 5 % (1-10) Eosinophils % (Manual) 3 % (0-3) 0 % (0-3) Basophils % (Manual) 1 % (0-2) 0 % (0-2) Band Neutrophils 0 % (0-8) 0 % (0-8) Platelet Estimate Decreased L Decreased L Platelet Morphology Normal Normal Hypochromasia 1+ Anisocytosis 1+ Sodium Level 138 MMOL/L (136-145) Potassium Level 3.6 MMOL/L (3.5-5.1) Chloride Level 99 MMOL/L (98-107) Carbon Dioxide Level 28 MMOL/L (21-32) Anion Gap 11 mmol/L (5-15) Blood Urea Nitrogen 74 mg/dL (7-18) H Creatinine 4.1 MG/DL (0.55-1.30) H Estimat Glomerular Filtration Rate mL/min (>60) Glucose Level 127 MG/DL (74-106) H Calcium Level 8.6 MG/DL (8.5-10.1) Phosphorus Level 4.6 MG/DL (2.5-4.9) Random Vancomycin Level < 0.2 ug/mL Arterial Blood pH 7.395 (7.350-7.450) Arterial Blood Partial Pressure CO2 45.0 mmHg (35.0-45.0) Arterial Blood Partial Pressure O2 139.4 mmHg (75.0-100.0) H Arterial Blood HCO3 26.9 mmol/L (22.0-26.0) H Arterial Blood Oxygen Saturation 98.3 % (95-100) Arterial Blood Base Excess 1.8 (-2-2) Zachary Test Positive Height (Feet): 5 Height (Inches): 3.00 Weight (Pounds): 133 General Appearance: WD/WN, no apparent distress, alert Cardiovascular: normal rate Respiratory/Chest: normal breath sounds, no respiratory distress, other - intubated Abdominal Exam: normal bowel sounds, non tender, soft, GT site - c/d/i Extremities: non-tender Janene Ellis NP February 26, 2019 11:20
[2019-02-26 11:35] LABS: HEMATOCRIT 21.7 % (37.0-47.0); HEMOGLOBIN 7.4 G/DL (12.0-16.0); MEAN CORPUSCULAR VOLUME 94 FL (80-99); PLATELET COUNT 158 K/UL (150-450); RED BLOOD COUNT 2.31 M/UL (4.20-5.40); RED CELL DISTRIBUTION WIDTH 15.4 % (11.6-14.8); WHITE BLOOD COUNT 6.1 K/UL (4.8-10.8)
--- NOTE | 2019-02-26 12:00 | NUR ---
NURSE NOTES: Patient repositioned and oral care provided, right hands IV 20G placed on forearm and hand, running protonix and tko, patient has several skin tears covered with 2x2 and covered with optifoam,
--- NOTE | 2019-02-26 14:20 | NUR ---
NURSE NOTES: Patient HBG remains 7.4 with no active bleeding noted, no blood transfusion to be given at this time.
[2019-02-26] MEDS ORDERED: Tubing Blood Filter IV ONE (14:56)
[2019-02-26] MEDS ORDERED: NS 275ml ONE (14:56)
[2019-02-26] MEDS ORDERED: Tubing IV Secondary IV ONE (14:56)
--- NOTE | 2019-02-26 15:46 | Pulmonology Progress Note ---
Assessment/Plan Assessment/Plan 1. acute respiratory failure 2. End-stage renal failure, on dialysis. 3. COPD. 4. Schizophrenia. 5. Pulmonary edema, due to overload 6. Anemia of chronic kidney disease. 7. Sick sinus syndrome. 8. diabetes mellitus. PLAN monitor for change vent noted and settings reviewed weaning trial if able- d/w nursing still unable to extubate titrate oxygen as able HD with UF keep negative monitor fluid status and imaging continue supportive care nutrition as tolerated follow up for change and recommend medications/laboratory data/nursing notes/ICU care reviewed in detail note reviewed and edited care discussed with RN and RT ICU time spent 40 minutes Subjective ROS Limited/Unobtainable: Yes Allergies: Coded Allergies: No Known Allergies (Unverified , 05/11/18) Subjective care noted on oxygen on vent respiratory noted no distress ICU care reviewed Objective Last 24 Hour Vital Signs Date Time Temp Pulse Resp B/P (MAP) Pulse Ox O2 Delivery O2 Flow Rate FiO2 02/26/19 15:06 88 20 40 02/26/19 14:00 84 21 146/68 (94) 93 02/26/19 13:27 80 14 100 Mechanical Ventilator 40 02/26/19 13:23 75 20 40 02/26/19 13:20 77 16 95 Mechanical Ventilator 40 02/26/19 13:20 40 02/26/19 13:00 76 18 112/66 (81) 100 02/26/19 12:00 Mechanical Ventilator 02/26/19 12:00 74 02/26/19 12:00 99.2 82 19 137/61 (86) 100 02/26/19 12:00 40 02/26/19 11:04 83 21 40 02/26/19 11:00 76 19 152/67 (95) 100 02/26/19 10:00 78 19 114/54 (74) 95 02/26/19 09:45 119/61 02/26/19 09:45 74 119/61 02/26/19 09:00 73 15 133/19 (57) 100 02/26/19 08:59 78 21 40 02/26/19 08:00 Mechanical Ventilator 02/26/19 08:00 74 02/26/19 08:00 40 02/26/19 08:00 99.4 72 16 125/15 (51) 100 02/26/19 07:00 75 14 100 Mechanical Ventilator 40 02/26/19 07:00 71 14 127/16 (53) 100 02/26/19 06:56 71 20 40 02/26/19 06:52 77 14 100 Mechanical Ventilator 40 02/26/19 06:52 40 02/26/19 06:00 74 17 151/18 (62) 100 02/26/19 05:19 82 24 40 02/26/19 05:00 79 22 131/12 (51) 100 02/26/19 04:00 75 02/26/19 04:00 40 02/26/19 04:00 98.4 75 18 113/13 (46) 100 02/26/19 04:00 Mechanical Ventilator 02/26/19 03:00 85 20 116/65 (82) 99 02/26/19 02:58 85 20 40 02/26/19 02:00 81 20 143/12 (55) 99 02/26/19 01:30 84 16 100 Mechanical Ventilator 40 02/26/19 01:20 81 15 100 Mechanical Ventilator 40 02/26/19 01:20 40 02/26/19 01:20 81 15 40 02/26/19 01:00 81 18 95/41 (59) 99 02/26/19 00:00 Mechanical Ventilator 02/26/19 00:00 98.8 87 20 123/28 (59) 98 02/26/19 00:00 87 02/26/19 00:00 40 02/25/19 23:19 81 20 40 02/25/19 23:00 80 19 118/34 (62) 100 02/25/19 22:00 94 21 113/34 (60) 99 02/25/19 21:14 82 21 40 02/25/19 21:00 85 22 153/27 (69) 99 02/25/19 21:00 153/27 02/25/19 20:00 78 02/25/19 20:00 Mechanical Ventilator 02/25/19 20:00 40 02/25/19 20:00 78 18 135/19 (57) 100 02/25/19 19:37 76 19 100 Mechanical Ventilator 40 02/25/19 19:22 77 17 100 Mechanical Ventilator 40 02/25/19 19:22 40 02/25/19 19:20 77 17 40 02/25/19 19:00 75 16 131/21 (57) 100 02/25/19 18:00 74 16 129/19 (55) 100 02/25/19 17:20 70 16 40 02/25/19 17:00 98.5 72 20 117/19 (51) 100 02/25/19 16:00 74 20 103/37 (59) 100 02/25/19 16:00 Mechanical Ventilator 02/25/19 16:00 74 Intake and Output 02/25/19 02/26/19 19:00 07:00 Intake Total 550 ml 830 ml Output Total 250 ml 1550 ml Balance 300 ml -720 ml Intake Free Water 120 ml IV Total 430 ml 500 ml Blood Product 300 ml Other 30 ml Output Urine Total 0 ml 0 ml Stool Total 250 ml 550 ml Hemodialysis UF 1000 ml # Bowel Movements 3 Objective WDWN on vent ETT in place reduced breath sounds bilaterally without rhonchi or wheeze [id number] without MRG NABS nontender no HSM no CC mild edema nonfocal and sedated reviewed and edited Laboratory Tests 02/25/19 16:54: White Blood Count 5.3#, Red Blood Count 2.23L, Hemoglobin 6.9*L, Hematocrit 20.5L, Mean Corpuscular Volume 92, Mean Corpuscular Hemoglobin 31.1H, Mean Corpuscular Hemoglobin Concent 33.7, Red Cell Distribution Width 14.3, Platelet Count 131L, Mean Platelet Volume 4.8L, Neutrophils (%) (Auto) , Lymphocytes (%) (Auto) , Monocytes (%) (Auto) , Eosinophils (%) (Auto) , Basophils (%) (Auto) , Differential Total Cells Counted 100, Neutrophils % (Manual) 74, Lymphocytes % ( Manual) 12L, Monocytes % (Manual) 10, Eosinophils % (Manual) 3, Basophils % ( Manual) 1, Band Neutrophils 0, Platelet Estimate DecreasedL, Platelet Morphology Normal, Hypochromasia 1+, Anisocytosis 1+, Sodium Level 138, Potassium Level 3.6, Chloride Level 99, Carbon Dioxide Level 28, Anion Gap 11, Blood Urea Nitrogen 74H, Creatinine 4.1H, Estimat Glomerular Filtration Rate , Glucose Level 127H, Calcium Level 8.6, Phosphorus Level 4.6 02/26/19 00:00: White Blood Count 11.2#H, Red Blood Count 2.49L, Hemoglobin 7.9L, Hematocrit 23.3L, Mean Corpuscular Volume 93, Mean Corpuscular Hemoglobin 31.8H, Mean Corpuscular Hemoglobin Concent 34.0, Red Cell Distribution Width 15.2H, Platelet Count 140L, Mean Platelet Volume 5.5L, Neutrophils (%) (Auto) , Lymphocytes (%) (Auto) , Monocytes (%) (Auto) , Eosinophils (%) (Auto) , Basophils (%) (Auto) , Differential Total Cells Counted 100, Neutrophils % ( Manual) 87H, Lymphocytes % (Manual) 8L, Monocytes % (Manual) 5, Eosinophils % ( Manual) 0, Basophils % (Manual) 0, Band Neutrophils 0, Platelet Estimate DecreasedL, Platelet Morphology Normal 02/26/19 08:15: Random Vancomycin Level < 0.2 02/26/19 08:30: Arterial Blood pH 7.395, Arterial Blood Partial Pressure CO2 45.0, Arterial Blood Partial Pressure O2 139.4H, Arterial Blood HCO3 26.9H, Arterial Blood Oxygen Saturation 98.3, Arterial Blood Base Excess 1.8, Zachary Test Positive 02/26/19 10:50: White Blood Count 6.1, Red Blood Count 2.31L, Hemoglobin 7.4L, Hematocrit 21.7L , Mean Corpuscular Volume 94, Mean Corpuscular Hemoglobin 32.0H, Mean Corpuscular Hemoglobin Concent 34.1, Red Cell Distribution Width 15.4H, Platelet Count 158, Mean Platelet Volume 6.1L, Neutrophils (%) (Auto) , Lymphocytes (%) (Auto) , Monocytes (%) (Auto) , Eosinophils (%) (Auto) , Basophils (%) (Auto) , Differential Total Cells Counted 100, Neutrophils % ( Manual) 76H, Lymphocytes % (Manual) 13L, Monocytes % (Manual) 11H, Eosinophils % (Manual) 0, Basophils % (Manual) 0, Band Neutrophils 0, Platelet Estimate Adequate, Platelet Morphology Normal, Red Blood Cell Morphology Normal Current Medications Medications (Trade) Dose Ordered Sig/Konrad Route PRN Reason Start Time Stop Time Status Last Admin Dose Admin Acetaminophen (Tylenol) 650 mg Q4H PRN GT Mild Pain/Temp > 100.5 02/20/19 18:00 03/16/19 17:59 02/22/19 21:18 Acetylcysteine (Mucomyst) 100 mg TIDRT HHN 02/23/19 07:00 03/25/19 06:59 02/26/19 13:25 Albuterol/ Ipratropium (Albuterol/ Ipratropium) 3 ml Q6HRT HHN 02/23/19 19:00 02/27/19 22:59 02/26/19 13:25 Amlodipine Besylate (Norvasc) 10 mg DAILY GT 02/21/19 09:00 03/17/19 08:59 02/26/19 09:45 Dextrose (Dextrose 50%) 25 ml Q30M PRN IV Hypoglycemia 02/20/19 17:45 03/16/19 15:14 Dextrose (Dextrose 50%) 50 ml Q30M PRN IV Hypoglycemia 02/20/19 17:45 03/16/19 15:14 Epoetin Chau (Epoetin Chau(ESRD on dialysis)) 10,000 unit SAT-SAT-SAT SUBQ 02/25/19 21:00 03/27/19 20:59 02/25/19 23:49 Heparin Sodium (Porcine) (Heparin 5000 units/ml) 5,000 units EVERY 12 HOURS SUBQ 02/20/19 21:00 03/16/19 20:59 02/23/19 21:11 Insulin Aspart (NovoLOG) EVERY 6 HOURS SUBQ 02/20/19 18:00 03/16/19 16:29 02/26/19 05:44 Iron Sucrose 100 mg/Sodium Chloride 60 ml @ 240 mls/hr BEDTIME IVPB 02/23/19 21:00 02/27/19 21:14 02/25/19 23:48 Levothyroxine Sodium (Synthroid) 150 mcg DAILY@0630 GT 02/21/19 06:30 03/17/19 06:29 02/26/19 05:45 Lorazepam (Ativan 2mg/ml 1ml) 1 mg Q2H PRN IV For Anxiety/Agitation 02/22/19 21:30 03/01/19 21:29 02/26/19 00:14 Metoclopramide HCl (Reglan) 5 mg Q6H PRN IVP Nausea & Vomiting 02/20/19 18:00 03/20/19 17:59 Minoxidil (Loniten) 2.5 mg Q12HR GT 02/20/19 21:00 03/16/19 20:59 02/26/19 09:45 Ondansetron HCl (Zofran) 4 mg Q6H PRN IVP Nausea & Vomiting 02/20/19 18:00 03/19/19 17:59 Pantoprazole 80 mg/Sodium Chloride 250 ml @ 25 mls/hr Q10H IV 02/24/19 13:30 03/26/19 13:29 02/26/19 05:43 Piperacillin Sod/ Tazobactam Sod 2.25 gm/Dextrose 55 ml @ 110 mls/hr Q8HR IVPB 02/21/19 22:00 02/26/19 21:59 02/26/19 14:01 Sucralfate (Carafate) 1 gm Q6HR GT 02/25/19 12:00 03/27/19 11:59 02/26/19 11:40 Vancomycin HCl (Vanco rx to dose) 1 ea DAILY PRN MISC Per rx protocol 02/22/19 21:30 03/24/19 21:29 Jac Ramirez MD February 26, 2019 15:46
--- NOTE | 2019-02-26 16:20 | NUR ---
NURSE NOTES: Dr. Quintero notified of patient uzair expiring at 1999 on 02/26/19, ordered to have dr. Lewis to consult for ID. will continue plan of care.
--- NOTE | 2019-02-26 16:32 | Nephrology Progress Note ---
Assessment/Plan Plan Respiratory Failure due to CHF + Pneumonia, m/p due to aspiration. On vent. EGD necrotizing esophagitis! CHF --- HD+UF MWF Pneumonia - IV Abx. Subjective Subjective In ICU. Still on vent. Objective Objective Last 24 Hour Vital Signs Date Time Temp Pulse Resp B/P (MAP) Pulse Ox O2 Delivery O2 Flow Rate FiO2 02/26/19 16:00 40 02/26/19 16:00 73 15 137/72 (93) 100 02/26/19 15:06 88 20 40 02/26/19 15:00 100 21 129/79 (96) 99 02/26/19 14:00 84 21 146/68 (94) 93 02/26/19 13:27 80 14 100 Mechanical Ventilator 40 02/26/19 13:23 75 20 40 02/26/19 13:20 77 16 95 Mechanical Ventilator 40 02/26/19 13:20 40 02/26/19 13:00 76 18 112/66 (81) 100 02/26/19 12:00 Mechanical Ventilator 02/26/19 12:00 74 02/26/19 12:00 99.2 82 19 137/61 (86) 100 02/26/19 12:00 40 02/26/19 11:04 83 21 40 02/26/19 11:00 76 19 152/67 (95) 100 02/26/19 10:00 78 19 114/54 (74) 95 02/26/19 09:45 119/61 02/26/19 09:45 74 119/61 02/26/19 09:00 73 15 133/19 (57) 100 02/26/19 08:59 78 21 40 02/26/19 08:00 Mechanical Ventilator 02/26/19 08:00 74 02/26/19 08:00 40 02/26/19 08:00 99.4 72 16 125/15 (51) 100 02/26/19 07:00 75 14 100 Mechanical Ventilator 40 02/26/19 07:00 71 14 127/16 (53) 100 02/26/19 06:56 71 20 40 02/26/19 06:52 77 14 100 Mechanical Ventilator 40 02/26/19 06:52 40 02/26/19 06:00 74 17 151/18 (62) 100 02/26/19 05:19 82 24 40 02/26/19 05:00 79 22 131/12 (51) 100 02/26/19 04:00 75 02/26/19 04:00 40 02/26/19 04:00 98.4 75 18 113/13 (46) 100 02/26/19 04:00 Mechanical Ventilator 02/26/19 03:00 85 20 116/65 (82) 99 02/26/19 02:58 85 20 40 02/26/19 02:00 81 20 143/12 (55) 99 02/26/19 01:30 84 16 100 Mechanical Ventilator 40 02/26/19 01:20 81 15 100 Mechanical Ventilator 40 02/26/19 01:20 40 02/26/19 01:20 81 15 40 02/26/19 01:00 81 18 95/41 (59) 99 02/26/19 00:00 Mechanical Ventilator 02/26/19 00:00 98.8 87 20 123/28 (59) 98 02/26/19 00:00 87 02/26/19 00:00 40 02/25/19 23:19 81 20 40 02/25/19 23:00 80 19 118/34 (62) 100 02/25/19 22:00 94 21 113/34 (60) 99 02/25/19 21:14 82 21 40 02/25/19 21:00 85 22 153/27 (69) 99 02/25/19 21:00 153/27 02/25/19 20:00 78 02/25/19 20:00 Mechanical Ventilator 02/25/19 20:00 40 02/25/19 20:00 78 18 135/19 (57) 100 02/25/19 19:37 76 19 100 Mechanical Ventilator 40 02/25/19 19:22 77 17 100 Mechanical Ventilator 40 02/25/19 19:22 40 02/25/19 19:20 77 17 40 02/25/19 19:00 75 16 131/21 (57) 100 02/25/19 18:00 74 16 129/19 (55) 100 02/25/19 17:20 70 16 40 02/25/19 17:00 98.5 72 20 117/19 (51) 100 Intake and Output 02/25/19 02/26/19 19:00 07:00 Intake Total 550 ml 830 ml Output Total 250 ml 1550 ml Balance 300 ml -720 ml Intake Free Water 120 ml IV Total 430 ml 500 ml Blood Product 300 ml Other 30 ml Output Urine Total 0 ml 0 ml Stool Total 250 ml 550 ml Hemodialysis UF 1000 ml # Bowel Movements 3 Laboratory Tests 02/25/19 16:54: White Blood Count 5.3#, Red Blood Count 2.23L, Hemoglobin 6.9*L, Hematocrit 20.5L, Mean Corpuscular Volume 92, Mean Corpuscular Hemoglobin 31.1H, Mean Corpuscular Hemoglobin Concent 33.7, Red Cell Distribution Width 14.3, Platelet Count 131L, Mean Platelet Volume 4.8L, Neutrophils (%) (Auto) , Lymphocytes (%) (Auto) , Monocytes (%) (Auto) , Eosinophils (%) (Auto) , Basophils (%) (Auto) , Differential Total Cells Counted 100, Neutrophils % (Manual) 74, Lymphocytes % ( Manual) 12L, Monocytes % (Manual) 10, Eosinophils % (Manual) 3, Basophils % ( Manual) 1, Band Neutrophils 0, Platelet Estimate DecreasedL, Platelet Morphology Normal, Hypochromasia 1+, Anisocytosis 1+, Sodium Level 138, Potassium Level 3.6, Chloride Level 99, Carbon Dioxide Level 28, Anion Gap 11, Blood Urea Nitrogen 74H, Creatinine 4.1H, Estimat Glomerular Filtration Rate , Glucose Level 127H, Calcium Level 8.6, Phosphorus Level 4.6 02/26/19 00:00: White Blood Count 11.2#H, Red Blood Count 2.49L, Hemoglobin 7.9L, Hematocrit 23.3L, Mean Corpuscular Volume 93, Mean Corpuscular Hemoglobin 31.8H, Mean Corpuscular Hemoglobin Concent 34.0, Red Cell Distribution Width 15.2H, Platelet Count 140L, Mean Platelet Volume 5.5L, Neutrophils (%) (Auto) , Lymphocytes (%) (Auto) , Monocytes (%) (Auto) , Eosinophils (%) (Auto) , Basophils (%) (Auto) , Differential Total Cells Counted 100, Neutrophils % ( Manual) 87H, Lymphocytes % (Manual) 8L, Monocytes % (Manual) 5, Eosinophils % ( Manual) 0, Basophils % (Manual) 0, Band Neutrophils 0, Platelet Estimate DecreasedL, Platelet Morphology Normal 02/26/19 08:15: Random Vancomycin Level < 0.2 02/26/19 08:30: Arterial Blood pH 7.395, Arterial Blood Partial Pressure CO2 45.0, Arterial Blood Partial Pressure O2 139.4H, Arterial Blood HCO3 26.9H, Arterial Blood Oxygen Saturation 98.3, Arterial Blood Base Excess 1.8, Zachary Test Positive 02/26/19 10:50: White Blood Count 6.1, Red Blood Count 2.31L, Hemoglobin 7.4L, Hematocrit 21.7L , Mean Corpuscular Volume 94, Mean Corpuscular Hemoglobin 32.0H, Mean Corpuscular Hemoglobin Concent 34.1, Red Cell Distribution Width 15.4H, Platelet Count 158, Mean Platelet Volume 6.1L, Neutrophils (%) (Auto) , Lymphocytes (%) (Auto) , Monocytes (%) (Auto) , Eosinophils (%) (Auto) , Basophils (%) (Auto) , Differential Total Cells Counted 100, Neutrophils % ( Manual) 76H, Lymphocytes % (Manual) 13L, Monocytes % (Manual) 11H, Eosinophils % (Manual) 0, Basophils % (Manual) 0, Band Neutrophils 0, Platelet Estimate Adequate, Platelet Morphology Normal, Red Blood Cell Morphology Normal Height (Feet): 5 Height (Inches): 3.00 Weight (Pounds): 133 Objective Intubated, on vent. GT to suctio -coffee ground effluent. Rectal tube dark effluent. CV RR Lungs B ronchi + wheezes. Abd SNT. BS + E No CCE Raul Cannon MD February 26, 2019 16:32
--- NOTE | 2019-02-26 16:39 | NUR ---
NURSE NOTES: [facility] called to notify of order placed by Dr. Quintero for hemodialysis, message left at the number [phone] tejinder, awaiting for call back confirmation,
--- NOTE | 2019-02-26 18:30 | NUR ---
NURSE NOTES: Dr. Lewis called for consultation from Dr. Cannon, ordered to continue zosyn order of 2.225gm q8hrs IVBP. will place order.
--- NOTE | 2019-02-26 19:15 | NUR ---
RESPIRATORY NOTE: Received pt on AC 14, 400VT, 40%, PEEP +5. Pt intubated w/ ETT 7.5 @ 23cm lipline, secured by anchorfast. Pt awake/disoriented. Both hands on soft restraints to prevent pt from self-extubation. B/S deep. Rhonchi, sxn moderate to copious amounts of thick/thin, frothy, maxwell-brown secretions w/ occasional blood. Vent plugged into red outlet, ambubag at bedside. Pt in no apparent distress at this time. Will continue to monitor pt.
--- NOTE | 2019-02-26 19:29 | NUR ---
HAND-OFF: Report given to WILIAM Xiao.
--- NOTE | 2019-02-26 19:30 | NUR ---
NURSE NOTES: Received pt in no acute distress. Awake, alert but confused and non verbal due to ETT. Mildly restless but remains on bilat soft wrist restraints as pt tends to be impulsive, non compliant. Noted vent settings of [id number] and saturating 100%. Secretions mod orally and via ETT; pinkish. No active bleeding noted. PIV sites intact; Lupper arm AVGraft with strong bruit and thrill. GT intact; TF to be started soon. Rectal tube patent draining liquid blackish/greyish stools. Afebrile; NSR. Anuric. Naren continue to monitor
--- NOTE | 2019-02-26 20:00 | NUR ---
NURSE NOTES: Called DR Taylor to clarify transfusion order. Ordered 1 unit PRBC to be transfused now and prn for Hgb<7.5. Called [facility]
--- NOTE | 2019-02-26 20:30 | NUR ---
NURSE NOTES: 1 unit PRBC started via RFA PIV. Pre tx VSS. GTF witgh Nepro started as well at 10cc/h; will gradually increase to goal of 30ml if tolerated.
[2019-02-26] MEDS: Iron Sucrose 100 MG in NS 55 ML IVPB SCH (21:19)
--- NOTE | 2019-02-26 23:32 | NUR ---
NURSE NOTES: Blood completely absorbed without any complications. VSS. Pt restless and agitated; Ativan 1 mg IVP given
[2019-02-27] VITALS (24 sets, daily range): BP systolic 111–156; BP diastolic 49–87
--- NOTE | 2019-02-27 01:00 | NUR ---
NURSE NOTES: Still awake and mildly agitated. Oral care and oral suctioning done. Still with copious amt of clear secretions, no bleeding. GTF now at 20ml/h;well tolerated
[2019-02-27] MEDS: Albuterol/Ipratropium 3ml neb HHN SCH ×4 (01:10→19:32)
[2019-02-27] MEDS: Pantoprazole 80 MG in NS 250 ML IV SCH ×2 (02:13→11:47)
--- NOTE | 2019-02-27 03:00 | NUR ---
NURSE NOTES: Awake and still agitated. Maintained restraints. Complete bed bath done. Redressed right and left wrist wounds. Sacral dressing dry and intact. P
--- NOTE | 2019-02-27 05:00 | NUR ---
NURSE NOTES: Tolerating GTF at 30ml/h; no residuals. Rectal tube intact, stools greyish black, 200ml. PIV sites intact. Hgb 7.5. No active bleeding noted. oral secretions copious. Plans to wean pt today
[2019-02-27 05:47] LABS: HEMOGLOBIN 7.5 G/DL (12.0-16.0); MEAN CORPUSCULAR VOLUME 94 FL (80-99); PLATELET COUNT 155 K/UL (150-450); RED BLOOD COUNT 2.36 M/UL (4.20-5.40); RED CELL DISTRIBUTION WIDTH 15.4 % (11.6-14.8); WHITE BLOOD COUNT 6.6 K/UL (4.8-10.8)
[2019-02-27] MEDS: Sucralfate 1gm tab GT SCH ×4 (06:00→23:33)
[2019-02-27] MEDS: NovoLOG Insulin Flexpen SUBQ SCH ×4 (06:01→23:34)
[2019-02-27] MEDS: Piperacillin/Tazobactam 2.25 GM in D5W 55 ML IVPB SCH ×3 (06:02→22:03)
[2019-02-27 06:11] LABS: ANION GAP 12 mmol/L (5-15); BLOOD UREA NITROGEN 72 mg/dL (7-18); CALCIUM 8.9 MG/DL (8.5-10.1); CARBON DIOXIDE 25 MMOL/L (21-32); CHLORIDE 103 MMOL/L (98-107); CREATININE 3.6 MG/DL (0.55-1.30); SODIUM 140 MMOL/L (136-145)
--- NOTE | 2019-02-27 07:07 | NUR ---
RESPIRATORY NOTE: received pt orally intubated with 7.5 ETT and placed 23cm at the lip. ETT secured via anchor fast with no redness around facial or mouth area. pt in no apparent resp distress at this time. vent settings are as followed with alarms set and audible and also plugged into the red outlet. ambu bag at bedside. will wean later this morning and cont to monitor.
--- NOTE | 2019-02-27 07:09 | NUR ---
HAND-OFF: Report given to WILIAM Dawn.
--- NOTE | 2019-02-27 08:10 | NUR ---
RESPIRATORY NOTE: placed pt on CPAP PS 10. will cont to monitor RN notified
--- NOTE | 2019-02-27 08:15 | NUR ---
NURSE NOTES: Patient report received from WILIAM Xiao. Patient received awake with ETT 7.5 AC 14 Vt 400 FiO2 40% Peep 5.Patient placed on CPAP PS 10 and feeding held. Low grade fever at this time and cooling measure applied.GT placement checked and in place.Residual check and flushed as tolerated. Abdomen soft and non distended.Mouth care done,suctioned as tolerated, kept clean and dry. Will continue to monitor.
[2019-02-27] MEDS: Heparin 5000 units/ml inj SUBQ SCH ×2 (08:20→20:54)
[2019-02-27] MEDS: Minoxidil 2.5mg tab GT SCH ×2 (08:20→20:56)
--- NOTE | 2019-02-27 08:54 | Pulmonology Progress Note ---
Assessment/Plan Assessment/Plan 1. acute respiratory failure 2. End-stage renal failure, on dialysis. 3. COPD. 4. Schizophrenia. 5. Pulmonary edema, due to overload 6. Anemia of chronic kidney disease. 7. Sick sinus syndrome. 8. diabetes mellitus. PLAN monitor for change and recommend vent noted and settings reviewed weaning trial if able- d/w nursing and will hold pending transfusion still unable to extubate titrate oxygen as able HD with UF keep negative plan for transfusion with noted anemia monitor for bleeding monitor fluid status and imaging continue supportive care nutrition as tolerated follow up for change and recommend medications/laboratory data/nursing notes/ICU care reviewed in detail note reviewed and edited care discussed with RN and RT ICU time spent 38 minutes Subjective ROS Limited/Unobtainable: Yes Allergies: Coded Allergies: No Known Allergies (Unverified , 05/11/18) Subjective care noted on oxygen on vent as is weaning attempts reviewed respiratory noted no distress ICU care reviewed plans for transfusion Objective Last 24 Hour Vital Signs Date Time Temp Pulse Resp B/P (MAP) Pulse Ox O2 Delivery O2 Flow Rate FiO2 02/27/19 08:20 137/59 02/27/19 08:20 78 137/59 02/27/19 08:00 99.4 73 16 137/59 (85) 98 02/27/19 08:00 40 02/27/19 08:00 76 02/27/19 08:00 Mechanical Ventilator 02/27/19 07:12 84 21 100 Mechanical Ventilator 40 02/27/19 07:12 40 02/27/19 07:05 78 17 100 Mechanical Ventilator 40 02/27/19 07:01 80 18 40 02/27/19 07:00 75 16 156/57 (90) 98 02/27/19 06:00 77 17 154/54 (87) 99 02/27/19 05:03 75 18 40 02/27/19 05:00 74 18 151/61 (91) 100 02/27/19 04:00 99.0 76 16 135/66 (89) 98 02/27/19 04:00 76 02/27/19 04:00 40 02/27/19 04:00 Mechanical Ventilator 02/27/19 03:06 72 14 40 02/27/19 03:00 71 16 128/62 (84) 100 02/27/19 02:00 73 16 119/59 (79) 100 02/27/19 01:19 75 14 100 Mechanical Ventilator 40 02/27/19 01:09 75 15 100 Mechanical Ventilator 40 02/27/19 01:09 40 02/27/19 01:08 69 14 40 02/27/19 01:00 75 18 129/70 (89) 99 02/27/19 00:09 Mechanical Ventilator 02/27/19 00:00 98.7 75 16 125/59 (81) 100 02/27/19 00:00 40 02/26/19 23:05 77 17 40 02/26/19 23:00 74 16 151/68 (95) 100 02/26/19 22:00 77 16 132/51 (78) 100 02/26/19 21:18 140/72 02/26/19 21:00 80 19 140/72 (94) 97 02/26/19 20:54 81 18 40 02/26/19 20:00 78 02/26/19 20:00 40 02/26/19 20:00 Mechanical Ventilator 02/26/19 20:00 98.4 78 18 137/68 (91) 97 02/26/19 19:29 83 16 100 Mechanical Ventilator 40 02/26/19 19:14 40 02/26/19 19:14 73 16 100 Mechanical Ventilator 40 02/26/19 19:13 73 16 40 02/26/19 19:00 76 16 129/56 (80) 100 02/26/19 18:00 72 16 121/59 (79) 97 02/26/19 17:05 84 29 40 02/26/19 17:00 99.2 72 15 147/71 (96) 100 02/26/19 16:00 81 02/26/19 16:00 40 02/26/19 16:00 Mechanical Ventilator 02/26/19 16:00 73 15 137/72 (93) 100 02/26/19 15:06 88 20 40 02/26/19 15:00 100 21 129/79 (96) 99 02/26/19 14:00 84 21 146/68 (94) 93 02/26/19 13:27 80 14 100 Mechanical Ventilator 40 02/26/19 13:23 75 20 40 02/26/19 13:20 77 16 95 Mechanical Ventilator 40 02/26/19 13:20 40 02/26/19 13:00 76 18 112/66 (81) 100 02/26/19 12:00 Mechanical Ventilator 02/26/19 12:00 74 02/26/19 12:00 99.2 82 19 137/61 (86) 100 02/26/19 12:00 40 02/26/19 11:04 83 21 40 02/26/19 11:00 76 19 152/67 (95) 100 02/26/19 10:00 78 19 114/54 (74) 95 02/26/19 09:45 119/61 02/26/19 09:45 74 119/61 02/26/19 09:00 73 15 133/19 (57) 100 02/26/19 08:59 78 21 40 Intake and Output 02/26/19 02/27/19 19:00 07:00 Intake Total 605 ml 1085 ml Output Total 575 ml 200 ml Balance 30 ml 885 ml Intake Free Water 200 ml IV Total 355 ml 445 ml Tube Feeding 240 ml Blood Product 400 ml Other 50 ml Output Urine Total 0 ml 0 ml Stool Total 575 ml 200 ml Objective WDWN on vent ETT in place reduced breath sounds bilaterally without rhonchi or wheeze [id number] without MRG NABS nontender no HSM no CC mild edema nonfocal and sedated reviewed and edited Laboratory Tests 02/26/19 10:50: White Blood Count 6.1, Red Blood Count 2.31L, Hemoglobin 7.4L, Hematocrit 21.7L , Mean Corpuscular Volume 94, Mean Corpuscular Hemoglobin 32.0H, Mean Corpuscular Hemoglobin Concent 34.1, Red Cell Distribution Width 15.4H, Platelet Count 158, Mean Platelet Volume 6.1L, Neutrophils (%) (Auto) , Lymphocytes (%) (Auto) , Monocytes (%) (Auto) , Eosinophils (%) (Auto) , Basophils (%) (Auto) , Differential Total Cells Counted 100, Neutrophils % ( Manual) 76H, Lymphocytes % (Manual) 13L, Monocytes % (Manual) 11H, Eosinophils % (Manual) 0, Basophils % (Manual) 0, Band Neutrophils 0, Platelet Estimate Adequate, Platelet Morphology Normal, Red Blood Cell Morphology Normal 02/27/19 05:00: White Blood Count 6.6, Red Blood Count 2.36L, Hemoglobin 7.5L, Hematocrit 22.0L , Mean Corpuscular Volume 94, Mean Corpuscular Hemoglobin 31.8H, Mean Corpuscular Hemoglobin Concent 34.0, Red Cell Distribution Width 15.4H, Platelet Count 155, Mean Platelet Volume 4.9L, Neutrophils (%) (Auto) , Lymphocytes (%) (Auto) , Monocytes (%) (Auto) , Eosinophils (%) (Auto) , Basophils (%) (Auto) , Differential Total Cells Counted 100, Neutrophils % ( Manual) 74, Lymphocytes % (Manual) 10L, Monocytes % (Manual) 13H, Eosinophils % (Manual) 3, Basophils % (Manual) 0, Band Neutrophils 0, Platelet Estimate Adequate, Platelet Morphology Normal, Hypochromasia 3+, Anisocytosis 1+, Spherocytes 1+, Sodium Level 140, Potassium Level 3.0L, Chloride Level 103, Carbon Dioxide Level 25, Anion Gap 12, Blood Urea Nitrogen 72H, Creatinine 3.6H , Estimat Glomerular Filtration Rate , Glucose Level 113H, Calcium Level 8.9, Random Vancomycin Level 32.0 Current Medications Medications (Trade) Dose Ordered Sig/[place] Route PRN Reason Start Time Stop Time Status Last Admin Dose Admin Acetaminophen (Tylenol) 650 mg Q4H PRN GT Mild Pain/Temp > 100.5 02/20/19 18:00 03/16/19 17:59 02/22/19 21:18 Acetylcysteine (Mucomyst) 100 mg TIDRT N 02/23/19 07:00 03/25/19 06:59 02/27/19 07:05 Albuterol/ Ipratropium (Albuterol/ Ipratropium) 3 ml Q6HRT N 02/23/19 19:00 02/27/19 22:59 02/27/19 07:05 Amlodipine Besylate (Norvasc) 10 mg DAILY GT 02/21/19 09:00 03/17/19 08:59 02/27/19 08:20 Dextrose (Dextrose 50%) 25 ml Q30M PRN IV Hypoglycemia 02/20/19 17:45 03/16/19 15:14 Dextrose (Dextrose 50%) 50 ml Q30M PRN IV Hypoglycemia 02/20/19 17:45 03/16/19 15:14 Epoetin Chau (Epoetin Chau(ESRD on dialysis)) 10,000 unit SAT-SAT-FRI SUBQ 02/25/19 21:00 03/27/19 20:59 02/25/19 23:49 Heparin Sodium (Porcine) (Heparin 5000 units/ml) 5,000 units EVERY 12 HOURS SUBQ 02/20/19 21:00 03/16/19 20:59 02/23/19 21:11 Heparin Sodium (Porcine) (Heparin Sod 1000 units/ml 10ml) 2,000 unit ONCE PRN IV dialysis 02/27/19 16:45 02/27/19 23:59 Insulin Aspart (NovoLOG) EVERY 6 HOURS SUBQ 02/20/19 18:00 03/16/19 16:29 02/27/19 06:01 Iron Sucrose 100 mg/Sodium Chloride 60 ml @ 240 mls/hr BEDTIME IVPB 02/23/19 21:00 02/27/19 21:14 02/26/19 21:19 Levothyroxine Sodium (Synthroid) 150 mcg DAILY@0630 GT 02/21/19 06:30 03/17/19 06:29 02/27/19 06:02 Lorazepam (Ativan 2mg/ml 1ml) 1 mg Q3H PRN IV For Anxiety/Agitation 02/26/19 16:45 03/05/19 16:44 02/26/19 23:15 Metoclopramide HCl (Reglan) 5 mg Q6H PRN IVP Nausea & Vomiting 02/20/19 18:00 03/20/19 17:59 Minoxidil (Loniten) 2.5 mg Q12HR GT 02/20/19 21:00 03/16/19 20:59 02/27/19 08:20 Ondansetron HCl (Zofran) 4 mg Q6H PRN IVP Nausea & Vomiting 02/20/19 18:00 03/19/19 17:59 Pantoprazole 80 mg/Sodium Chloride 250 ml @ 25 mls/hr Q10H IV 02/24/19 13:30 03/26/19 13:29 02/27/19 02:13 Piperacillin Sod/ Tazobactam Sod 2.25 gm/Dextrose 55 ml @ 110 mls/hr Q8HR IVPB 02/26/19 22:00 03/03/19 21:59 02/27/19 06:02 Sodium Chloride 1,000 ml @ 500 mls/hr Q2H PRN IVLG sbp<90 during hd 02/27/19 16:32 02/27/19 23:59 Sucralfate (Carafate) 1 gm Q6HR GT 02/25/19 12:00 03/27/19 11:59 02/27/19 06:00 Vancomycin HCl (Vanco rx to dose) 1 ea DAILY PRN MISC Per rx protocol 02/22/19 21:30 03/24/19 21:29 Jac Ramirez MD February 27, 2019 08:54
--- NOTE | 2019-02-27 09:03 | NUR ---
RESPIRATORY NOTE: pt placed back on AC mode. weaning on hold per Dr. Ramirez
--- NOTE | 2019-02-27 09:15 | NUR ---
NURSE NOTES: Seen by Dr Ramirez and placed back on AC mode per Dr Ramirez until patient get more stable.
--- NOTE | 2019-02-27 10:00 | NUR ---
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 * Increased kcal/prot needs R/T renal dysfunction, ESRD, wound healing, underweight status as evidenced by pt on HD, admitted w/ sacral partial thickness wound per geomatics professor, low BMI per guidelines, pt @ 89% IBW. CURRENT TF:Nepro @ 30ml/hr x 22 hrs ENTERAL NUTRITION RECOMMENDATIONS: Nepro @ 40ml/hr x 22 hrs (HOLD 1 HR BEFORE AND AFTER SYNTHROID) to provide 880ml, 1584kcal, 71g prot, 640ml free water * Increase goal rate to 40ml/hr x 22 hrs * Hold 1 hr before and after Synthroid med * HOB over 30 degrees/ water flush per MD ADDITIONAL RECOMMENDATIONS: * Per SNF record: HT=66", FC=[id number] (02/09/19) -> rec calibrated bedscale wt. Current bedscale reads 63.6kg (139lbs) * Obtain dry wt post HD * F/UP w/ WC eval for sacral wound -> continue Zeke 1pkt BID * Probiotics for diarrhea
--- NOTE | 2019-02-27 10:20 | NUR ---
NURSE NOTES: Seen by Helder,ROVING TECHNICIAN will follow up with new order.Turned and repositioned, HOB elevated to prevent aspiration.Will continue to monitor
--- NOTE | 2019-02-27 10:34 | GI Progress Note ---
Assessment/Plan Problems: (1) Anemia ICD Codes: D64.9 - Anemia, unspecified SNOMED: 699761459 (2) Respiratory failure ICD Codes: J96.90 - Respiratory failure, unspecified, unspecified whether with hypoxia or hypercapnia SNOMED: 065811428 Qualifiers: Qualified Codes: J96.01 - Acute respiratory failure with hypoxia; J96.02 - Acute respiratory failure with hypercapnia (3) End stage renal disease on dialysis ICD Codes: N18.6 - End stage renal disease; Z99.2 - Dependence on renal dialysis SNOMED: 844404745 Status: stable Status Narrative Discussed with Dr. Taylor. Assessment/Plan s/p EGD SUMMARY OF FINDINGS: Evidence of significant esophageal possibly necrosis in the distal esophagus most probably the source of bleeding, which we could not do anything endoscopically to control it. stable H&H, no recurrent bleed reported PLAN: Keep NPO strict aspiration precautions, elevate the head of the bed at all times. Continue on Protonix drip. Monitor hemoglobin and hematocrit every 8 hours and transfuse to keep hemoglobin above 8. Carafate 1 g every 6 hours. repeat endoscopy if patient has recurrent bleed. The patient was seen and examined at bedside and all new and available data was reviewed in the patients chart. I agree with the above findings, impression and plan. (Patient seen earlier today. Signature stamp does not reflect patient encounter time.). - Hilton Taylor MD Subjective Subjective Limited Objective Last 24 Hour Vital Signs Date Time Temp Pulse Resp B/P (MAP) Pulse Ox O2 Delivery O2 Flow Rate FiO2 02/27/19 10:00 68 18 132/54 (80) 100 02/27/19 09:00 69 16 144/55 (84) 98 02/27/19 09:00 76 22 40 02/27/19 08:20 137/59 02/27/19 08:20 78 137/59 02/27/19 08:00 99.4 73 16 137/59 (85) 98 02/27/19 08:00 40 02/27/19 08:00 76 02/27/19 08:00 Mechanical Ventilator 02/27/19 07:12 84 21 100 Mechanical Ventilator 40 02/27/19 07:12 40 02/27/19 07:05 78 17 100 Mechanical Ventilator 40 02/27/19 07:01 80 18 40 02/27/19 07:00 75 16 156/57 (90) 98 02/27/19 06:00 77 17 154/54 (87) 99 02/27/19 05:03 75 18 40 02/27/19 05:00 74 18 151/61 (91) 100 02/27/19 04:00 99.0 76 16 135/66 (89) 98 02/27/19 04:00 76 02/27/19 04:00 40 02/27/19 04:00 Mechanical Ventilator 02/27/19 03:06 72 14 40 02/27/19 03:00 71 16 128/62 (84) 100 02/27/19 02:00 73 16 119/59 (79) 100 02/27/19 01:19 75 14 100 Mechanical Ventilator 40 02/27/19 01:09 75 15 100 Mechanical Ventilator 40 02/27/19 01:09 40 02/27/19 01:08 69 14 40 02/27/19 01:00 75 18 129/70 (89) 99 02/27/19 00:09 Mechanical Ventilator 02/27/19 00:00 98.7 75 16 125/59 (81) 100 02/27/19 00:00 40 02/26/19 23:05 77 17 40 02/26/19 23:00 74 16 151/68 (95) 100 02/26/19 22:00 77 16 132/51 (78) 100 02/26/19 21:18 140/72 02/26/19 21:00 80 19 140/72 (94) 97 02/26/19 20:54 81 18 40 02/26/19 20:00 78 02/26/19 20:00 40 02/26/19 20:00 Mechanical Ventilator 02/26/19 20:00 98.4 78 18 137/68 (91) 97 02/26/19 19:29 83 16 100 Mechanical Ventilator 40 02/26/19 19:14 40 02/26/19 19:14 73 16 100 Mechanical Ventilator 40 02/26/19 19:13 73 16 40 02/26/19 19:00 76 16 129/56 (80) 100 02/26/19 18:00 72 16 121/59 (79) 97 02/26/19 17:05 84 29 40 02/26/19 17:00 99.2 72 15 147/71 (96) 100 02/26/19 16:00 81 02/26/19 16:00 40 02/26/19 16:00 Mechanical Ventilator 02/26/19 16:00 73 15 137/72 (93) 100 02/26/19 15:06 88 20 40 02/26/19 15:00 100 21 129/79 (96) 99 02/26/19 14:00 84 21 146/68 (94) 93 02/26/19 13:27 80 14 100 Mechanical Ventilator 40 02/26/19 13:23 75 20 40 02/26/19 13:20 77 16 95 Mechanical Ventilator 40 02/26/19 13:20 40 02/26/19 13:00 76 18 112/66 (81) 100 02/26/19 12:00 Mechanical Ventilator 02/26/19 12:00 74 02/26/19 12:00 99.2 82 19 137/61 (86) 100 02/26/19 12:00 40 02/26/19 11:04 83 21 40 02/26/19 11:00 76 19 152/67 (95) 100 Intake and Output 02/26/19 02/27/19 19:00 07:00 Intake Total 605 ml 1085 ml Output Total 575 ml 200 ml Balance 30 ml 885 ml Intake Free Water 200 ml IV Total 355 ml 445 ml Tube Feeding 240 ml Blood Product 400 ml Other 50 ml Output Urine Total 0 ml 0 ml Stool Total 575 ml 200 ml Laboratory Tests Test 02/26/19 10:50 02/27/19 05:00 White Blood Count 6.1 K/UL (4.8-10.8) 6.6 K/UL (4.8-10.8) Red Blood Count 2.31 M/UL (4.20-5.40) L 2.36 M/UL (4.20-5.40) L Hemoglobin 7.4 G/DL (12.0-16.0) L 7.5 G/DL (12.0-16.0) L Hematocrit 21.7 % (37.0-47.0) L 22.0 % (37.0-47.0) L Mean Corpuscular Volume 94 FL (80-99) 94 FL (80-99) Mean Corpuscular Hemoglobin 32.0 PG (27.0-31.0) H 31.8 PG (27.0-31.0) H Mean Corpuscular Hemoglobin Concent 34.1 G/DL (32.0-36.0) 34.0 G/DL (32.0-36.0) Red Cell Distribution Width 15.4 % (11.6-14.8) H 15.4 % (11.6-14.8) H Platelet Count 158 K/UL (150-450) 155 K/UL (150-450) Mean Platelet Volume 6.1 FL (6.5-10.1) L 4.9 FL (6.5-10.1) L Neutrophils (%) (Auto) % (45.0-75.0) % (45.0-75.0) Lymphocytes (%) (Auto) % (20.0-45.0) % (20.0-45.0) Monocytes (%) (Auto) % (1.0-10.0) % (1.0-10.0) Eosinophils (%) (Auto) % (0.0-3.0) % (0.0-3.0) Basophils (%) (Auto) % (0.0-2.0) % (0.0-2.0) Differential Total Cells Counted 100 100 Neutrophils % (Manual) 76 % (45-75) H 74 % (45-75) Lymphocytes % (Manual) 13 % (20-45) L 10 % (20-45) L Monocytes % (Manual) 11 % (1-10) H 13 % (1-10) H Eosinophils % (Manual) 0 % (0-3) 3 % (0-3) Basophils % (Manual) 0 % (0-2) 0 % (0-2) Band Neutrophils 0 % (0-8) 0 % (0-8) Platelet Estimate Adequate Adequate Platelet Morphology Normal Normal Red Blood Cell Morphology Normal Hypochromasia 3+ Anisocytosis 1+ Spherocytes 1+ Sodium Level 140 MMOL/L (136-145) Potassium Level 3.0 MMOL/L (3.5-5.1) L Chloride Level 103 MMOL/L (98-107) Carbon Dioxide Level 25 MMOL/L (21-32) Anion Gap 12 mmol/L (5-15) Blood Urea Nitrogen 72 mg/dL (7-18) H Creatinine 3.6 MG/DL (0.55-1.30) H Estimat Glomerular Filtration Rate mL/min (>60) Glucose Level 113 MG/DL (74-106) H Calcium Level 8.9 MG/DL (8.5-10.1) Random Vancomycin Level 32.0 ug/mL Height (Feet): 5 Height (Inches): 3.00 Weight (Pounds): 139 General Appearance: no apparent distress Cardiovascular: normal rate Respiratory/Chest: other - intubated Abdominal Exam: site - c/d/i Janene Ellis NP February 27, 2019 10:34
--- NOTE | 2019-02-27 12:07 | NUR ---
NURSE NOTES: Mouth care done,turned and repositioned.HOB elevated to prevent aspiration.Will continue to monitor
--- NOTE | 2019-02-27 14:10 | NUR ---
NURSE NOTES: Ongoing dialysis with no apparent distress, will keep close monitoring
--- NOTE | 2019-02-27 14:21 | Nephrology Progress Note ---
Assessment/Plan Plan Respiratory Failure due to CHF + Pneumonia, m/p due to aspiration. On vent. EGD necrotizing esophagitis! CHF --- HD+UF MWF Pneumonia - IV Abx. Hct down to 22. May need transfusion next HD run. Subjective Subjective In ICU. Still on vent. On HD. Stable run. Objective Objective Last 24 Hour Vital Signs Date Time Temp Pulse Resp B/P (MAP) Pulse Ox O2 Delivery O2 Flow Rate FiO2 02/27/19 13:00 72 18 113/50 (71) 100 02/27/19 12:56 73 19 100 Mechanical Ventilator 40 02/27/19 12:48 40 02/27/19 12:48 74 16 100 Mechanical Ventilator 40 02/27/19 12:47 74 15 40 02/27/19 12:00 98.5 72 16 138/54 (82) 98 02/27/19 12:00 40 02/27/19 12:00 Mechanical Ventilator 02/27/19 12:00 73 02/27/19 11:00 72 18 117/49 (71) 100 02/27/19 10:56 74 23 40 02/27/19 10:00 68 18 132/54 (80) 100 02/27/19 09:00 69 16 144/55 (84) 98 02/27/19 09:00 76 22 40 02/27/19 08:20 137/59 02/27/19 08:20 78 137/59 02/27/19 08:00 99.4 73 16 137/59 (85) 98 02/27/19 08:00 40 02/27/19 08:00 76 02/27/19 08:00 Mechanical Ventilator 02/27/19 07:12 84 21 100 Mechanical Ventilator 40 02/27/19 07:12 40 02/27/19 07:05 78 17 100 Mechanical Ventilator 40 02/27/19 07:01 80 18 40 02/27/19 07:00 75 16 156/57 (90) 98 02/27/19 06:00 77 17 154/54 (87) 99 02/27/19 05:03 75 18 40 02/27/19 05:00 74 18 151/61 (91) 100 02/27/19 04:00 99.0 76 16 135/66 (89) 98 02/27/19 04:00 76 02/27/19 04:00 40 02/27/19 04:00 Mechanical Ventilator 02/27/19 03:06 72 14 40 02/27/19 03:00 71 16 128/62 (84) 100 02/27/19 02:00 73 16 119/59 (79) 100 02/27/19 01:19 75 14 100 Mechanical Ventilator 40 02/27/19 01:09 75 15 100 Mechanical Ventilator 40 02/27/19 01:09 40 02/27/19 01:08 69 14 40 02/27/19 01:00 75 18 129/70 (89) 99 02/27/19 00:09 Mechanical Ventilator 02/27/19 00:00 98.7 75 16 125/59 (81) 100 02/27/19 00:00 40 02/26/19 23:05 77 17 40 02/26/19 23:00 74 16 151/68 (95) 100 02/26/19 22:00 77 16 132/51 (78) 100 02/26/19 21:18 140/72 02/26/19 21:00 80 19 140/72 (94) 97 02/26/19 20:54 81 18 40 02/26/19 20:00 78 02/26/19 20:00 40 02/26/19 20:00 Mechanical Ventilator 02/26/19 20:00 98.4 78 18 137/68 (91) 97 02/26/19 19:29 83 16 100 Mechanical Ventilator 40 02/26/19 19:14 40 02/26/19 19:14 73 16 100 Mechanical Ventilator 40 02/26/19 19:13 73 16 40 02/26/19 19:00 76 16 129/56 (80) 100 02/26/19 18:00 72 16 121/59 (79) 97 02/26/19 17:05 84 29 40 02/26/19 17:00 99.2 72 15 147/71 (96) 100 02/26/19 16:00 81 02/26/19 16:00 40 02/26/19 16:00 Mechanical Ventilator 02/26/19 16:00 73 15 137/72 (93) 100 02/26/19 15:06 88 20 40 02/26/19 15:00 100 21 129/79 (96) 99 Intake and Output 02/26/19 02/27/19 19:00 07:00 Intake Total 605 ml 1085 ml Output Total 575 ml 200 ml Balance 30 ml 885 ml Intake Free Water 200 ml IV Total 355 ml 445 ml Tube Feeding 240 ml Blood Product 400 ml Other 50 ml Output Urine Total 0 ml 0 ml Stool Total 575 ml 200 ml Laboratory Tests 02/27/19 05:00: White Blood Count 6.6, Red Blood Count 2.36L, Hemoglobin 7.5L, Hematocrit 22.0L , Mean Corpuscular Volume 94, Mean Corpuscular Hemoglobin 31.8H, Mean Corpuscular Hemoglobin Concent 34.0, Red Cell Distribution Width 15.4H, Platelet Count 155, Mean Platelet Volume 4.9L, Neutrophils (%) (Auto) , Lymphocytes (%) (Auto) , Monocytes (%) (Auto) , Eosinophils (%) (Auto) , Basophils (%) (Auto) , Differential Total Cells Counted 100, Neutrophils % ( Manual) 74, Lymphocytes % (Manual) 10L, Monocytes % (Manual) 13H, Eosinophils % (Manual) 3, Basophils % (Manual) 0, Band Neutrophils 0, Platelet Estimate Adequate, Platelet Morphology Normal, Hypochromasia 3+, Anisocytosis 1+, Spherocytes 1+, Sodium Level 140, Potassium Level 3.0L, Chloride Level 103, Carbon Dioxide Level 25, Anion Gap 12, Blood Urea Nitrogen 72H, Creatinine 3.6H , Estimat Glomerular Filtration Rate , Glucose Level 113H, Calcium Level 8.9, Random Vancomycin Level 32.0 Height (Feet): 5 Height (Inches): 3.00 Weight (Pounds): 139 Objective Intubated, on vent. GT to suctio -coffee ground effluent. Rectal tube dark effluent. CV RR Lungs B ronchi + wheezes. Abd SNT. BS + E No CCE Raul Cannon MD February 27, 2019 14:21
--- NOTE | 2019-02-27 16:02 | NUR ---
NURSE NOTES: ADls done, mouth care performed,turned and repositioned.HOB elevated at 35 degree to prevent aspiration.Dialysis done and 2.5L out
[2019-02-27] MEDS ORDERED: Heparin Sod 1000 units/ml 10ml IV PRN (16:45)
[2019-02-27 17:27] LABS: ANION GAP 11 mmol/L (5-15); BLOOD UREA NITROGEN 36 mg/dL (7-18); CALCIUM 9.2 MG/DL (8.5-10.1); CARBON DIOXIDE 28 MMOL/L (21-32); CHLORIDE 102 MMOL/L (98-107); CREATININE 2.2 MG/DL (0.55-1.30); HEMATOCRIT 21.5 % (37.0-47.0); HEMOGLOBIN 7.5 G/DL (12.0-16.0); MEAN CORPUSCULAR VOLUME 90 FL (80-99); PLATELET COUNT 158 K/UL (150-450); RED BLOOD COUNT 2.38 M/UL (4.20-5.40); RED CELL DISTRIBUTION WIDTH 14.8 % (11.6-14.8); SODIUM 140 MMOL/L (136-145)
[2019-02-27 17:30] LABS: POTASSIUM 2.6 MMOL/L (3.5-5.1)
--- NOTE | 2019-02-27 18:24 | NUR ---
NURSE NOTES: Dr Hudson made aware potassium level post dialysis , order to give 20kcl IVPB. Order noted and carried out
--- NOTE | 2019-02-27 19:01 | NUR ---
HAND-OFF: Report given to WILIAM Xiao.
--- NOTE | 2019-02-27 19:30 | NUR ---
NURSE NOTES: Received pt in no apparent distress; awake, alert but confused and restless. Remains orally intubated and appears to be tolerating current vent settings; fio2 .40 and saturating 100%. Still with copious oral secretions, white thick saliva but no bleeding noted. Chest sounds with scattered rhonchi. NSR, afberile BP stable. GIANNI AV Graft with strong bruit and tyhrill. PIV sites on Right wrist area x 2 intact. Still on bilateral soft wrist restraints as pt still impulsive. GTF with Nepro continues at 30ml/h with 0 residuals. Rectal tube patent, stool liquid greyish black, mod amt. Anuric. Will continue to monitor
[2019-02-27] MEDS: Iron Sucrose 100 MG in NS 55 ML IVPB SCH (20:44)
[2019-02-27] MEDS: Epoetin Alfa-EPBX(ESRD on dialysis)10,000 unit/ml vial SUBQ SCH (20:45)
--- NOTE | 2019-02-27 22:00 | NUR ---
NURSE NOTES: Oral care and suctioning done. Still with copious oral secretions but only clear saliva. ETT secretions yellow. VSS
[2019-02-28] VITALS (24 sets, daily range): BP systolic 104–149; BP diastolic 40–84
--- NOTE | 2019-02-28 | NUR ---
NURSE NOTES: Still awake but calm; hands fidgety; attempts to grab lines. Soft wrist restraints maintained; renewed. VSS; No distress.
--- NOTE | 2019-02-28 00:31 | Consultation ---
DATE OF CONSULTATION: 02/27/2019 INFECTIOUS DISEASES CONSULTATION CONSULTING PHYSICIAN: Deuce Lewis M.D. REFERRING PHYSICIAN: Raul Cannon M.D. REASON FOR CONSULTATION: Pneumonia. HISTORY OF PRESENT ILLNESS: This is a 73-year-old lady with history of chronic obstructive pulmonary disease, schizophrenia, hypothyroidism, diabetes, sick sinus syndrome, end-stage renal disease on dialysis, who came in with respiratory distress. She was placed on a BiPAP but now she has been intubated and an Infectious Diseases consultation has been obtained for pneumonia. The patient underwent esophagogastroduodenoscopy and showed necrosis in the distal esophagus PAST MEDICAL HISTORY: 1. History of diabetes. 2. Hypothyroidism. 3. Schizophrenia. 4. COPD. 5. Renal failure, on dialysis. 6. Sick sinus syndrome. 7. Anemia. SOCIAL HISTORY: Unknown. FAMILY HISTORY: Unknown. REVIEW OF SYSTEMS: Unable to obtain currently. MEDICATIONS: As an inpatient, she is on subcutaneous heparin, Zosyn lorazepam. She received IV vancomycin yesterday, Epogen, sucralfate, Protonix, iron sucrose, albuterol ipratropium, acetylcysteine, amlodipine, levothyroxine, subcutaneous heparin, minoxidil, Tylenol, insulin, Reglan, Zofran. ALLERGIES: No known drug allergies. PHYSICAL EXAMINATION: VITAL SIGNS: Temperature of 99.4, T-max of 99.4, pulse of 68, respiratory rate of 18, blood pressure 132/54, O2 saturation of 100%. HEENT: The patient is intubated. NECK: Supple. No adenopathy. No JVD. CARDIOVASCULAR: Regular rate and rhythm. No murmurs. LUNGS: Clear to auscultation bilaterally. No crackles. No wheezes. ABDOMEN: Soft and nontender. No organomegaly. EXTREMITIES: No cyanosis, no clubbing, no edema. LABORATORY AND DIAGNOSTIC DATA: White count of 6.6, hemoglobin 7.5, hematocrit 22, MCV 94, platelet count of 155 with neutrophils of 74%. Sodium 140, potassium 3, chloride 103, bicarb 25, BUN 72, creatinine 3.6, glucose 113, calcium 8.9. On 02/23/2019, total protein 6.7, albumin 2.8. On 02/19/2019 amylase of 54, lipase of 307. On 02/23/2019 stool for C. difficile is negative. Sputum culture showing normal osman. On 02/14/2019, blood cultures are negative. Rectal swab was positive for VRE. Nasal swab was negative for MRSA. Chest x-ray is showing mild to moderate congestive heart failure maybe slight improvement, bilateral pleural effusions are possible. 2D echocardiogram showing trace pulmonary regurgitation, no aortic insufficiency. ASSESSMENT: This is a 73-year-old lady with history of diabetes, chronic obstructive pulmonary disease, schizophrenia who comes in with shortness of breath and now is found to have. 1. Possible pneumonia that is improving. 2. Pleural effusions. 3. Congestive heart failure. 4. Renal failure, on dialysis. 5. Sick sinus syndrome. 6. Necrotizing esophagitis. PLAN: 1. Discontinue vancomycin. 2. Continue Zosyn. 3. We will start the patient on fluconazole. 4. We will follow up the patient clinically, . I would like to thank, Dr. Cannon for this consultation. Deuce Lewis M.D. DR: Wayne JOB#: [id number] CC: Raul Cannon M.D.; Fax#: [phone]
[2019-02-28] MEDS: Albuterol/Ipratropium 3ml neb HHN SCH ×4 (01:30→18:34)
--- NOTE | 2019-02-28 02:00 | NUR ---
NURSE NOTES: HOB elevated . Sleeps on and off. Tolerates feeding. VSS
--- NOTE | 2019-02-28 04:00 | NUR ---
NURSE NOTES: Completed bath. Oral care done. Wound dressings dry and intact. PIV intact;patent. Redressed. GTF well tolerated. Skin warm dry;temp 99.6 axillary.
[2019-02-28 05:39] LABS: HEMATOCRIT 23.1 % (37.0-47.0); HEMOGLOBIN 7.8 G/DL (12.0-16.0); MEAN CORPUSCULAR VOLUME 94 FL (80-99); PLATELET COUNT 171 K/UL (150-450); RED BLOOD COUNT 2.46 M/UL (4.20-5.40); RED CELL DISTRIBUTION WIDTH 15.9 % (11.6-14.8)
[2019-02-28] MEDS: Piperacillin/Tazobactam 2.25 GM in D5W 55 ML IVPB SCH ×3 (05:45→21:45)
[2019-02-28] MEDS: Sucralfate 1gm tab GT SCH ×3 (05:45→17:19)
[2019-02-28] MEDS: NovoLOG Insulin Flexpen SUBQ SCH ×3 (05:46→17:20)
[2019-02-28 05:51] LABS: ANION GAP 9 mmol/L (5-15); BLOOD UREA NITROGEN 43 mg/dL (7-18); CALCIUM 9.2 MG/DL (8.5-10.1); CARBON DIOXIDE 29 MMOL/L (21-32); CHLORIDE 102 MMOL/L (98-107); SODIUM 140 MMOL/L (136-145)
--- NOTE | 2019-02-28 07:10 | NUR ---
NURSE NOTES: Received pt from WILIAM Xiao. Pt opens eyes, follows simple commands and nods for yes or no. No signs of distress. orally intubated, ETT 7.5/23cm at lip line, vent settings AC 14/TV400/Fio2 40%/PEEP5, Spo2 100%, RR 17. Copious amt of thick white secretions. Left lower lobe more diminished than right side. GIANNI AV shunt positive for thrill and bruit. Anuric. x2 RH 20G asymptomatic and patent, TKO. PEG running Nepro@30cc/hr, no residual, non distended and HOB 35 degrees. Dressing on sacral, bilateral heels intact and clean. Bilateral soft wrist restraints, skin intact, warm to touch. Observed pt pulling on restraints, restless. Reoriented and explained reason for restraints. Rectal tube draining green/black watery stool. Bed locked, alarmed and in lowest position. Will continue plan of care.
--- NOTE | 2019-02-28 07:13 | NUR ---
HAND-OFF: Report given to NESTOR ESTRADA rn.
--- NOTE | 2019-02-28 07:18 | NUR ---
RESPIRATORY NOTE: received pt on current vent settings, orally intubated with ETT 7.5 placed 23cm at the lip. ETT is secured via anchor fast with no redness or skin break down around facial, mouth, neck area. no resp distress noted at this time. breathing tx and weaning orders will follow throughout the day. vent is plugged into the red outlet with ambu bag at bedside. alarms set appropriately and will cont to monitor.
--- NOTE | 2019-02-28 08:12 | General Progress Note ---
Assessment/Plan Problem List: (1) Anemia ICD Codes: D64.9 - Anemia, unspecified SNOMED: 188097391 (2) Diabetes ICD Codes: E11.9 - Type 2 diabetes mellitus without complications SNOMED: 43387730 (3) CHF (congestive heart failure) ICD Codes: I50.9 - Heart failure, unspecified SNOMED: 43243393 (4) Respiratory failure ICD Codes: J96.90 - Respiratory failure, unspecified, unspecified whether with hypoxia or hypercapnia SNOMED: 194673163 Qualifiers: Qualified Codes: J96.01 - Acute respiratory failure with hypoxia; J96.02 - Acute respiratory failure with hypercapnia Status: stable Assessment/Plan: s/p EGD SUMMARY OF FINDINGS: Evidence of significant esophageal possibly necrosis in the distal esophagus most probably the source of bleeding, which we could not do anything endoscopically to control it. stable H&H, no recurrent bleed reported PLAN: GTF strict aspiration precautions, elevate the head of the bed at all times. Continue on Protonix drip. Monitor hemoglobin and hematocrit every 8 hours and transfuse to keep hemoglobin above 8. Carafate 1 g every 6 hours. repeat endoscopy if patient has recurrent bleed Subjective ROS Limited/Unobtainable: No Allergies: Coded Allergies: No Known Allergies (Unverified , 05/11/18) Objective Last 24 Hour Vital Signs Date Time Temp Pulse Resp B/P (MAP) Pulse Ox O2 Delivery O2 Flow Rate FiO2 02/28/19 07:24 65 14 100 Mechanical Ventilator 40 02/28/19 07:22 66 14 40 02/28/19 07:17 61 14 100 Mechanical Ventilator 40 02/28/19 06:00 69 20 109/84 (92) 100 02/28/19 05:30 71 20 40 02/28/19 05:00 67 19 148/67 (94) 100 02/28/19 04:00 Mechanical Ventilator 02/28/19 04:00 65 02/28/19 04:00 99.6 65 19 149/53 (85) 100 02/28/19 04:00 40 02/28/19 03:30 63 18 40 02/28/19 03:00 61 16 123/49 (73) 100 02/28/19 02:00 66 17 123/48 (73) 100 02/28/19 01:31 Mechanical Ventilator 40 02/28/19 01:30 Mechanical Ventilator 40 02/28/19 01:28 71 21 40 02/28/19 01:00 82 23 119/51 (73) 100 02/28/19 00:00 98.6 72 18 129/48 (75) 100 02/28/19 00:00 Mechanical Ventilator 02/28/19 00:00 40 02/28/19 00:00 72 02/27/19 23:28 69 17 40 02/27/19 23:00 67 16 129/55 (79) 100 02/27/19 22:00 67 17 135/61 (85) 100 02/27/19 21:15 70 16 40 02/27/19 21:00 69 18 153/60 (91) 100 02/27/19 20:56 115/59 02/27/19 20:08 40 02/27/19 20:07 76 02/27/19 20:06 Mechanical Ventilator 02/27/19 20:03 98.4 72 14 115/59 (77) 100 02/27/19 19:38 74 14 100 Mechanical Ventilator 40 02/27/19 19:30 40 02/27/19 19:29 83 20 100 Mechanical Ventilator 40 02/27/19 19:25 72 21 40 02/27/19 19:00 63 18 126/51 (76) 100 02/27/19 18:00 Mechanical Ventilator 02/27/19 18:00 64 18 111/49 (69) 100 02/27/19 17:08 73 17 40 02/27/19 17:00 73 18 142/60 (87) 100 02/27/19 16:00 81 02/27/19 16:00 98.0 78 16 154/87 (109) 98 02/27/19 16:00 40 02/27/19 16:00 Mechanical Ventilator 02/27/19 15:21 76 24 40 02/27/19 15:00 81 18 146/59 (88) 100 02/27/19 14:00 80 18 133/64 (87) 100 02/27/19 13:00 72 18 113/50 (71) 100 02/27/19 12:56 73 19 100 Mechanical Ventilator 40 02/27/19 12:48 40 02/27/19 12:48 74 16 100 Mechanical Ventilator 40 02/27/19 12:47 74 15 40 02/27/19 12:00 98.5 72 16 138/54 (82) 98 02/27/19 12:00 40 02/27/19 12:00 Mechanical Ventilator 02/27/19 12:00 73 02/27/19 11:00 72 18 117/49 (71) 100 02/27/19 10:56 74 23 40 02/27/19 10:00 68 18 132/54 (80) 100 02/27/19 09:00 69 16 144/55 (84) 98 02/27/19 09:00 76 22 40 02/27/19 08:20 137/59 02/27/19 08:20 78 137/59 Intake and Output 02/27/19 02/28/19 18:59 06:59 Intake Total 855 ml 700 ml Output Total 2700 ml 200 ml Balance -1845 ml 500 ml Intake Free Water 100 ml IV Total 355 ml 310 ml Tube Feeding 300 ml 360 ml Blood Product 100 ml Other 30 ml Output Urine Total 0 ml 0 ml Stool Total 200 ml 200 ml Hemodialysis UF 2500 ml Laboratory Tests 02/27/19 16:40: White Blood Count 7.0, Red Blood Count 2.38L, Hemoglobin 7.5L, Hematocrit 21.5L , Mean Corpuscular Volume 90, Mean Corpuscular Hemoglobin 31.5H, Mean Corpuscular Hemoglobin Concent 34.8, Red Cell Distribution Width 14.8, Platelet Count 158, Mean Platelet Volume 4.9L, Neutrophils (%) (Auto) , Lymphocytes (%) ( Auto) , Monocytes (%) (Auto) , Eosinophils (%) (Auto) , Basophils (%) (Auto) , Differential Total Cells Counted 100, Neutrophils % (Manual) 78H, Lymphocytes % (Manual) 11L, Monocytes % (Manual) 9, Eosinophils % (Manual) 2, Basophils % ( Manual) 0, Band Neutrophils 0, Platelet Estimate Adequate, Platelet Morphology Normal, Hypochromasia 2+, Anisocytosis 2+, Sodium Level 140, Potassium Level 2.6 *L, Chloride Level 102, Carbon Dioxide Level 28, Anion Gap 11, Blood Urea Nitrogen 36H, Creatinine 2.2H, Estimat Glomerular Filtration Rate , Glucose Level 169H, Calcium Level 9.2 02/28/19 05:10: White Blood Count 6.0, Red Blood Count 2.46L, Hemoglobin 7.8L, Hematocrit 23.1L , Mean Corpuscular Volume 94, Mean Corpuscular Hemoglobin 31.7H, Mean Corpuscular Hemoglobin Concent 33.8, Red Cell Distribution Width 15.9H, Platelet Count 171, Mean Platelet Volume 5.0L, Neutrophils (%) (Auto) , Lymphocytes (%) (Auto) , Monocytes (%) (Auto) , Eosinophils (%) (Auto) , Basophils (%) (Auto) , Neutrophils % (Manual) [Pending], Lymphocytes % (Manual) [Pending], Platelet Estimate [Pending], Platelet Morphology [Pending], Sodium Level 140, Potassium Level 3.0L, Chloride Level 102, Carbon Dioxide Level 29, Anion Gap 9, Blood Urea Nitrogen 43H, Creatinine 3.0H, Estimat Glomerular Filtration Rate , Glucose Level 149H, Calcium Level 9.2 Height (Feet): 5 Height (Inches): 3.00 Weight (Pounds): 140 General Appearance: lethargic EENT: normal ENT inspection Neck: supple Cardiovascular: normal rate Respiratory/Chest: decreased breath sounds Abdomen: normal bowel sounds, non tender, soft Extremities: non-tender Hilton Taylor MD Feb 28, 2019 08:12
[2019-02-28] MEDS: Heparin 5000 units/ml inj SUBQ SCH ×2 (09:00→21:00)
[2019-02-28] MEDS: Minoxidil 2.5mg tab GT SCH ×2 (09:05→21:00)
--- NOTE | 2019-02-28 09:25 | NUR ---
RESPIRATORY NOTE: attempted to wean pt with setting of CPAP PS8, but criteria was not met. Candice SWAIN notified
[2019-02-28] MEDS ORDERED: Tubing IV Secondary IV ONE (10:03)
[2019-02-28] MEDS ORDERED: NS 275ml ONE ×2 (10:03→16:59)
[2019-02-28] MEDS ORDERED: Tubing Blood Filter IV ONE (10:03)
--- NOTE | 2019-02-28 10:45 | NUR ---
NURSE NOTES: K=3.0, received orders to replace with potassium chloride 20mEq GT per Dr. Hernandez.
--- NOTE | 2019-02-28 10:53 | Pulmonology Progress Note ---
Assessment/Plan Assessment/Plan 1. acute respiratory failure 2. End-stage renal failure, on dialysis. 3. COPD. 4. Schizophrenia. 5. Pulmonary edema, due to overload 6. Anemia of chronic kidney disease. 7. Sick sinus syndrome. 8. diabetes mellitus. 9. protein calorie malnutrition 10. pulmonary infiltrates PLAN monitor for change and recommend vent noted and settings reviewed weaning as able titrate oxygen as able HD with UF keep negative as able monitor HH monitor for bleeding monitor fluid status and imaging continue supportive care nutrition as tolerated follow up for change and recommend medications/laboratory data/nursing notes/ICU care reviewed in detail note reviewed and edited care discussed with RN and RT ICU time spent 40 minutes Subjective ROS Limited/Unobtainable: Yes Allergies: Coded Allergies: No Known Allergies (Unverified , 05/11/18) Subjective care noted on oxygen on vent as is respiratory noted ICU care reviewed still anemic Objective Last 24 Hour Vital Signs Date Time Temp Pulse Resp B/P (MAP) Pulse Ox O2 Delivery O2 Flow Rate FiO2 02/28/19 10:00 63 20 104/49 (67) 100 02/28/19 09:16 66 26 02/28/19 09:05 109/84 02/28/19 09:05 63 135/49 02/28/19 09:00 63 20 107/44 (65) 100 02/28/19 08:00 40 02/28/19 08:00 Mechanical Ventilator 02/28/19 08:00 62 17 135/84 (101) 100 02/28/19 08:00 62 02/28/19 07:24 65 14 100 Mechanical Ventilator 40 02/28/19 07:22 66 14 40 02/28/19 07:17 61 14 100 Mechanical Ventilator 40 02/28/19 07:00 97.6 62 20 131/50 (77) 100 02/28/19 06:00 69 20 109/84 (92) 100 02/28/19 05:30 71 20 40 02/28/19 05:00 67 19 148/67 (94) 100 02/28/19 04:00 Mechanical Ventilator 02/28/19 04:00 65 02/28/19 04:00 99.6 65 19 149/53 (85) 100 02/28/19 04:00 40 02/28/19 03:30 63 18 40 02/28/19 03:00 61 16 123/49 (73) 100 02/28/19 02:00 66 17 123/48 (73) 100 02/28/19 01:31 Mechanical Ventilator 40 02/28/19 01:30 Mechanical Ventilator 40 02/28/19 01:28 71 21 40 02/28/19 01:00 82 23 119/51 (73) 100 02/28/19 00:00 98.6 72 18 129/48 (75) 100 02/28/19 00:00 Mechanical Ventilator 02/28/19 00:00 40 02/28/19 00:00 72 02/27/19 23:28 69 17 40 02/27/19 23:00 67 16 129/55 (79) 100 02/27/19 22:00 67 17 135/61 (85) 100 02/27/19 21:15 70 16 40 02/27/19 21:00 69 18 153/60 (91) 100 02/27/19 20:56 115/59 02/27/19 20:08 40 02/27/19 20:07 76 02/27/19 20:06 Mechanical Ventilator 02/27/19 20:03 98.4 72 14 115/59 (77) 100 02/27/19 19:38 74 14 100 Mechanical Ventilator 40 02/27/19 19:30 40 02/27/19 19:29 83 20 100 Mechanical Ventilator 40 02/27/19 19:25 72 21 40 02/27/19 19:00 63 18 126/51 (76) 100 02/27/19 18:00 Mechanical Ventilator 02/27/19 18:00 64 18 111/49 (69) 100 02/27/19 17:08 73 17 40 02/27/19 17:00 73 18 142/60 (87) 100 02/27/19 16:00 81 02/27/19 16:00 98.0 78 16 154/87 (109) 98 02/27/19 16:00 40 02/27/19 16:00 Mechanical Ventilator 02/27/19 15:21 76 24 40 02/27/19 15:00 81 18 146/59 (88) 100 02/27/19 14:00 80 18 133/64 (87) 100 02/27/19 13:00 72 18 113/50 (71) 100 02/27/19 12:56 73 19 100 Mechanical Ventilator 40 02/27/19 12:48 40 02/27/19 12:48 74 16 100 Mechanical Ventilator 40 02/27/19 12:47 74 15 40 02/27/19 12:00 98.5 72 16 138/54 (82) 98 02/27/19 12:00 40 02/27/19 12:00 Mechanical Ventilator 02/27/19 12:00 73 02/27/19 11:00 72 18 117/49 (71) 100 02/27/19 10:56 74 23 40 Intake and Output 02/27/19 02/28/19 19:00 07:00 Intake Total 730 ml 700 ml Output Total 2700 ml 200 ml Balance -1970 ml 500 ml Intake Free Water 100 ml IV Total 330 ml 310 ml Tube Feeding 300 ml 360 ml Other 30 ml Output Urine Total 0 ml 0 ml Stool Total 200 ml 200 ml Hemodialysis UF 2500 ml Objective WDWN on vent ETT in place reduced breath sounds bilaterally without rhonchi or wheeze [id number] without MRG NABS nontender no HSM no CC mild edema nonfocal and sedated reviewed and edited Laboratory Tests 02/27/19 16:40: White Blood Count 7.0, Red Blood Count 2.38L, Hemoglobin 7.5L, Hematocrit 21.5L , Mean Corpuscular Volume 90, Mean Corpuscular Hemoglobin 31.5H, Mean Corpuscular Hemoglobin Concent 34.8, Red Cell Distribution Width 14.8, Platelet Count 158, Mean Platelet Volume 4.9L, Neutrophils (%) (Auto) , Lymphocytes (%) ( Auto) , Monocytes (%) (Auto) , Eosinophils (%) (Auto) , Basophils (%) (Auto) , Differential Total Cells Counted 100, Neutrophils % (Manual) 78H, Lymphocytes % (Manual) 11L, Monocytes % (Manual) 9, Eosinophils % (Manual) 2, Basophils % ( Manual) 0, Band Neutrophils 0, Platelet Estimate Adequate, Platelet Morphology Normal, Hypochromasia 2+, Anisocytosis 2+, Sodium Level 140, Potassium Level 2.6 *L, Chloride Level 102, Carbon Dioxide Level 28, Anion Gap 11, Blood Urea Nitrogen 36H, Creatinine 2.2H, Estimat Glomerular Filtration Rate , Glucose Level 169H, Calcium Level 9.2 02/28/19 05:10: White Blood Count 6.0, Red Blood Count 2.46L, Hemoglobin 7.8L, Hematocrit 23.1L , Mean Corpuscular Volume 94, Mean Corpuscular Hemoglobin 31.7H, Mean Corpuscular Hemoglobin Concent 33.8, Red Cell Distribution Width 15.9H, Platelet Count 171, Mean Platelet Volume 5.0L, Neutrophils (%) (Auto) , Lymphocytes (%) (Auto) , Monocytes (%) (Auto) , Eosinophils (%) (Auto) , Basophils (%) (Auto) , Differential Total Cells Counted 100, Neutrophils % ( Manual) 77H, Lymphocytes % (Manual) 12L, Monocytes % (Manual) 9, Eosinophils % ( Manual) 2, Basophils % (Manual) 0, Band Neutrophils 0, Platelet Estimate Adequate, Platelet Morphology Normal, Anisocytosis 1+, Sodium Level 140, Potassium Level 3.0L, Chloride Level 102, Carbon Dioxide Level 29, Anion Gap 9, Blood Urea Nitrogen 43H, Creatinine 3.0H, Estimat Glomerular Filtration Rate , Glucose Level 149H, Calcium Level 9.2, Polychromasia 1+ Current Medications Medications (Trade) Dose Ordered Sig/Konrad Route PRN Reason Start Time Stop Time Status Last Admin Dose Admin Acetaminophen (Tylenol) 650 mg Q4H PRN GT Mild Pain/Temp > 100.5 02/20/19 18:00 03/16/19 17:59 02/22/19 21:18 Acetylcysteine (Mucomyst) 100 mg TIDRT [facility] 02/23/19 07:00 03/25/19 06:59 02/28/19 07:17 Albuterol/ Ipratropium (Albuterol/ Ipratropium) 3 ml Q6HRT [facility] 02/28/19 01:30 03/05/19 01:29 02/28/19 07:17 Amlodipine Besylate (Norvasc) 10 mg DAILY GT 02/21/19 09:00 03/17/19 08:59 02/28/19 09:05 Dextrose (Dextrose 50%) 25 ml Q30M PRN IV Hypoglycemia 02/20/19 17:45 03/16/19 15:14 Dextrose (Dextrose 50%) 50 ml Q30M PRN IV Hypoglycemia 02/20/19 17:45 03/16/19 15:14 Epoetin Chau (Epoetin Chau(ESRD on dialysis)) 10,000 unit SAT-SAT-FRI SUBQ 02/25/19 21:00 03/27/19 20:59 02/27/19 20:45 Fluconazole/ Sodium Chloride 100 ml @ 100 mls/hr Q24H IV 02/27/19 12:00 03/06/19 11:59 02/27/19 13:34 Heparin Sodium (Porcine) (Heparin 5000 units/ml) 5,000 units EVERY 12 HOURS SUBQ 02/20/19 21:00 03/16/19 20:59 02/23/19 21:11 Insulin Aspart (NovoLOG) EVERY 6 HOURS SUBQ 02/20/19 18:00 03/16/19 16:29 02/28/19 05:46 Lansoprazole (Prevacid) 30 mg Q12HR GT 02/27/19 21:00 03/29/19 20:59 02/28/19 09:04 Levothyroxine Sodium (Synthroid) 150 mcg DAILY@0630 GT 02/21/19 06:30 03/17/19 06:29 02/28/19 05:50 Lorazepam (Ativan 2mg/ml 1ml) 1 mg Q3H PRN IV For Anxiety/Agitation 02/26/19 16:45 03/05/19 16:44 02/26/19 23:15 Metoclopramide HCl (Reglan) 5 mg Q6H PRN IVP Nausea & Vomiting 02/20/19 18:00 03/20/19 17:59 Minoxidil (Loniten) 2.5 mg Q12HR GT 02/20/19 21:00 03/16/19 20:59 02/28/19 09:05 Ondansetron HCl (Zofran) 4 mg Q6H PRN IVP Nausea & Vomiting 02/20/19 18:00 03/19/19 17:59 Piperacillin Sod/ Tazobactam Sod 2.25 gm/Dextrose 55 ml @ 110 mls/hr Q8HR IVPB 02/26/19 22:00 03/03/19 21:59 02/28/19 05:45 Potassium Chloride (K-Dur) 20 meq ONCE GT 02/28/19 12:00 02/28/19 13:00 Sucralfate (Carafate) 1 gm Q6HR GT 02/25/19 12:00 03/27/19 11:59 02/28/19 05:45 Jac Ramirez MD Feb 28, 2019 10:53
--- NOTE | 2019-02-28 11:08 | NUR ---
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 CHF VS: BP 139/51, P 62, T 97.6, RR 26, SpO2 100 on VENT AC 14, TV 400, PEEP 5.0, FiO2 40 RBC 2.46, H&H 7.8/23.1, K 3.0, BUN 43, Cr 3.0 IS:NORVASC 10mg NOVOLOG SUBQ SYNTHROID 150mcg SUCRALFATE 1gm ZOSYN 110ml IVPB FLUCONAZOLE/NS 100mL IV PLAN: REPEAT ENDO IF PT. HAS RECURRENT BLEEDING ICU STATUS
[2019-02-28] MEDS: LORazepam Inj 2mg/ml 1ml IV PRN (11:10)
--- NOTE | 2019-02-28 11:10 | NUR ---
NURSE NOTES: Pt turned and repositioned. Seen restless, agitated, pulling on restraints and biting ETT. Ativan given as per ordered.
--- NOTE | 2019-02-28 12:38 | Nephrology Progress Note ---
Assessment/Plan Plan Respiratory Failure due to CHF + Pneumonia, m/p due to aspiration. On vent. EGD necrotizing esophagitis! CHF --- HD+UF MWF Pneumonia - IV Abx. Hct down to 22. May need transfusion next HD run. Subjective Subjective In ICU. Still on vent. Objective Objective Last 24 Hour Vital Signs Date Time Temp Pulse Resp B/P (MAP) Pulse Ox O2 Delivery O2 Flow Rate FiO2 02/28/19 11:01 66 18 40 02/28/19 11:00 62 17 139/51 (80) 100 02/28/19 10:00 63 20 104/49 (67) 100 02/28/19 09:16 66 26 02/28/19 09:05 109/84 02/28/19 09:05 63 135/49 02/28/19 09:00 63 20 107/44 (65) 100 02/28/19 08:00 40 02/28/19 08:00 Mechanical Ventilator 02/28/19 08:00 62 17 135/84 (101) 100 02/28/19 08:00 62 02/28/19 07:24 65 14 100 Mechanical Ventilator 40 02/28/19 07:22 66 14 40 02/28/19 07:17 61 14 100 Mechanical Ventilator 40 02/28/19 07:00 97.6 62 20 131/50 (77) 100 02/28/19 06:00 69 20 109/84 (92) 100 02/28/19 05:30 71 20 40 02/28/19 05:00 67 19 148/67 (94) 100 02/28/19 04:00 Mechanical Ventilator 02/28/19 04:00 65 02/28/19 04:00 99.6 65 19 149/53 (85) 100 02/28/19 04:00 40 02/28/19 03:30 63 18 40 02/28/19 03:00 61 16 123/49 (73) 100 02/28/19 02:00 66 17 123/48 (73) 100 02/28/19 01:31 Mechanical Ventilator 40 02/28/19 01:30 Mechanical Ventilator 40 02/28/19 01:28 71 21 40 02/28/19 01:00 82 23 119/51 (73) 100 02/28/19 00:00 98.6 72 18 129/48 (75) 100 02/28/19 00:00 Mechanical Ventilator 02/28/19 00:00 40 02/28/19 00:00 72 02/27/19 23:28 69 17 40 02/27/19 23:00 67 16 129/55 (79) 100 02/27/19 22:00 67 17 135/61 (85) 100 02/27/19 21:15 70 16 40 02/27/19 21:00 69 18 153/60 (91) 100 02/27/19 20:56 115/59 02/27/19 20:08 40 02/27/19 20:07 76 02/27/19 20:06 Mechanical Ventilator 02/27/19 20:03 98.4 72 14 115/59 (77) 100 02/27/19 19:38 74 14 100 Mechanical Ventilator 40 02/27/19 19:30 40 02/27/19 19:29 83 20 100 Mechanical Ventilator 40 02/27/19 19:25 72 21 40 02/27/19 19:00 63 18 126/51 (76) 100 02/27/19 18:00 Mechanical Ventilator 02/27/19 18:00 64 18 111/49 (69) 100 02/27/19 17:08 73 17 40 02/27/19 17:00 73 18 142/60 (87) 100 02/27/19 16:00 81 02/27/19 16:00 98.0 78 16 154/87 (109) 98 02/27/19 16:00 40 02/27/19 16:00 Mechanical Ventilator 02/27/19 15:21 76 24 40 02/27/19 15:00 81 18 146/59 (88) 100 02/27/19 14:00 80 18 133/64 (87) 100 02/27/19 13:00 72 18 113/50 (71) 100 02/27/19 12:56 73 19 100 Mechanical Ventilator 40 02/27/19 12:48 40 02/27/19 12:48 74 16 100 Mechanical Ventilator 40 02/27/19 12:47 74 15 40 Intake and Output 02/27/19 02/28/19 19:00 07:00 Intake Total 730 ml 700 ml Output Total 2700 ml 200 ml Balance -1970 ml 500 ml Intake Free Water 100 ml IV Total 330 ml 310 ml Tube Feeding 300 ml 360 ml Other 30 ml Output Urine Total 0 ml 0 ml Stool Total 200 ml 200 ml Hemodialysis UF 2500 ml Laboratory Tests 02/27/19 16:40: White Blood Count 7.0, Red Blood Count 2.38L, Hemoglobin 7.5L, Hematocrit 21.5L , Mean Corpuscular Volume 90, Mean Corpuscular Hemoglobin 31.5H, Mean Corpuscular Hemoglobin Concent 34.8, Red Cell Distribution Width 14.8, Platelet Count 158, Mean Platelet Volume 4.9L, Neutrophils (%) (Auto) , Lymphocytes (%) ( Auto) , Monocytes (%) (Auto) , Eosinophils (%) (Auto) , Basophils (%) (Auto) , Differential Total Cells Counted 100, Neutrophils % (Manual) 78H, Lymphocytes % (Manual) 11L, Monocytes % (Manual) 9, Eosinophils % (Manual) 2, Basophils % ( Manual) 0, Band Neutrophils 0, Platelet Estimate Adequate, Platelet Morphology Normal, Hypochromasia 2+, Anisocytosis 2+, Sodium Level 140, Potassium Level 2.6 *L, Chloride Level 102, Carbon Dioxide Level 28, Anion Gap 11, Blood Urea Nitrogen 36H, Creatinine 2.2H, Estimat Glomerular Filtration Rate , Glucose Level 169H, Calcium Level 9.2 02/28/19 05:10: White Blood Count 6.0, Red Blood Count 2.46L, Hemoglobin 7.8L, Hematocrit 23.1L , Mean Corpuscular Volume 94, Mean Corpuscular Hemoglobin 31.7H, Mean Corpuscular Hemoglobin Concent 33.8, Red Cell Distribution Width 15.9H, Platelet Count 171, Mean Platelet Volume 5.0L, Neutrophils (%) (Auto) , Lymphocytes (%) (Auto) , Monocytes (%) (Auto) , Eosinophils (%) (Auto) , Basophils (%) (Auto) , Differential Total Cells Counted 100, Neutrophils % ( Manual) 77H, Lymphocytes % (Manual) 12L, Monocytes % (Manual) 9, Eosinophils % ( Manual) 2, Basophils % (Manual) 0, Band Neutrophils 0, Platelet Estimate Adequate, Platelet Morphology Normal, Anisocytosis 1+, Sodium Level 140, Potassium Level 3.0L, Chloride Level 102, Carbon Dioxide Level 29, Anion Gap 9, Blood Urea Nitrogen 43H, Creatinine 3.0H, Estimat Glomerular Filtration Rate , Glucose Level 149H, Calcium Level 9.2, Polychromasia 1+ Height (Feet): 5 Height (Inches): 3.00 Weight (Pounds): 140 Objective Intubated, on vent. CV RR Lungs B ronchi + wheezes. Abd SNT. BS + E No CCE Raul Cannon MD Feb 28, 2019 12:38
--- NOTE | 2019-02-28 13:22 | NUR ---
NURSE NOTES: Sedated, RASS -1. Tolerating gtf well, HOB 35 degrees. No signs of distress.
--- NOTE | 2019-02-28 14:36 | NUR ---
RESPIRATORY NOTE: Received patient on ordered vent settings. Airway is patent and secured. No resp distress noted. Suctioned patient PRN. Vent alarms are on and audible. Vent is plugged into red outlet. Will monitor patient progress.
--- NOTE | 2019-02-28 15:34 | NUR ---
NURSE NOTES: Repositioned to the left, kept dry and clean. rectal tube draining well to gravity, stool still watery. Copious thick white sputum noted upon sxn. Released restraints but patient observed reaching for ETT.
--- NOTE | 2019-02-28 17:15 | NUR ---
NURSE NOTES: Patient's condition is the same. Dressings intact and rectal tube intact. kept dry and clean. Patient seen restless at times.
--- NOTE | 2019-02-28 19:12 | NUR ---
HAND-OFF: Report given to WILIAM Chang using SBAR.
--- NOTE | 2019-02-28 20:00 | NUR ---
NURSE NOTES: pt awake but do not follows command on deep soft wrist restraints non complaints pt nan verbal oraly intubated o2 sat 99 no acute resp distress noted reposition and suction
--- NOTE | 2019-02-28 22:00 | NUR ---
NURSE NOTES: reposition and suction sb rate 58 tolerating tube feeding no residual
--- NOTE | 2019-02-28 23:45 | Consultation ---
DATE OF CONSULTATION: 02/28/2019 CARDIOLOGY CONSULTATION CONSULTING PHYSICIAN: Wilmer Hoyos M.D. REQUESTING PHYSICIAN: Raul Cannon M.D. REASON FOR CONSULTATION: Respiratory failure with congestive heart failure. HISTORY OF PRESENT ILLNESS: This 73-year-old female with end-stage renal disease, on hemodialysis was admitted to the hospital with pulmonary edema and acute respiratory failure on February 14, 2019. She remains on ventilator support at this time and continues to have problems with heart failure. I have been asked to assist with cardiovascular care. PAST MEDICAL HISTORY: Includes end-stage renal disease, chronic obstructive pulmonary disease, schizophrenia, hypothyroidism, anemia of chronic kidney disease, type 2 diabetes mellitus, and sinus node disease. ALLERGIES: None. FAMILY HISTORY: Noncontributory. SOCIAL HISTORY: Prior smoker. REVIEW OF SYSTEMS: Otherwise not obtainable. PHYSICAL EXAMINATION: GENERAL: Orally intubated. Mechanically ventilated. LUNGS: Bilateral breath sounds. Scattered rales. HEART: Regular rhythm and rate. Normal S1 and S2. A 1/6 systolic murmur at apex. ABDOMEN: Soft. EXTREMITIES: Trace edema. LABORATORY DATA: EKG revealed sinus rhythm with left anterior superior hemiblock and voltage for left ventricular hypertrophy. Chest x-ray from February 23 revealed continued [id number] interstitial edema. She had echocardiogram on February 23 revealed normal ejection fraction, diastolic dysfunction. PA pressure of only 22 millimeters of mercury and only trace mitral and tricuspid regurgitation. IMPRESSION: 1. Acute on chronic diastolic congestive heart failure. 2. Respiratory failure. 3. Chronic obstructive pulmonary disease. 4. End-stage renal disease. 5. Anemia of chronic kidney disease. PLAN: 1. Decrease minoxidil. 2. Consider beta-sima. 3. No active bronchospasm. 4. Hemodialysis with ultrafiltration may be considered ____ increased frequency. 5. Packed red blood cell transfusion for hemoglobin goal above 8 g. 6. ____ natriuretic peptide assay and check troponin level. Wilmer Hoyos M.D. DR: MAGDY JOB#: [id number] CC:
[2019-03-01] VITALS (24 sets, daily range): BP systolic 110–154; BP diastolic 46–64
--- NOTE | 2019-03-01 | NUR ---
NURSE NOTES: bs 168 insulin coverage given as order reposition and suction given as order
[2019-03-01] MEDS: Albuterol/Ipratropium 3ml neb HHN SCH ×4 (00:07→19:22)
[2019-03-01] MEDS: NovoLOG Insulin Flexpen SUBQ SCH ×5 (01:47→23:13)
--- NOTE | 2019-03-01 02:00 | NUR ---
complete bed bath oral care and back care donereposition and suction
[2019-03-01] MEDS: LORazepam Inj 2mg/ml 1ml IV PRN ×2 (04:00→12:45)
--- NOTE | 2019-03-01 04:00 | NUR ---
NURSE NOTES: pt calm and asleep no acute resp distress note reposition and suction
[2019-03-01 06:04] LABS: BASOPHILS % (AUTO) 1.5 % (0.0-2.0); EOSINOPHILS % (AUTO) 5.3 % (0.0-3.0); HEMOGLOBIN 8.2 G/DL (12.0-16.0); LYMPHOCYTES % (AUTO) 9.5 % (20.0-45.0); MEAN CORPUSCULAR VOLUME 94 FL (80-99); MONOCYTES % (AUTO) 9.7 % (1.0-10.0); PLATELET COUNT 187 K/UL (150-450); RED BLOOD COUNT 2.55 M/UL (4.20-5.40); RED CELL DISTRIBUTION WIDTH 15.4 % (11.6-14.8); WHITE BLOOD COUNT 6.7 K/UL (4.8-10.8)
[2019-03-01] MEDS: Piperacillin/Tazobactam 2.25 GM in D5W 55 ML IVPB SCH ×3 (06:13→21:32)
[2019-03-01] MEDS: Sucralfate 1gm tab GT SCH ×5 (06:22→23:12)
--- NOTE | 2019-03-01 07:20 | NUR ---
NURSE NOTES: Received pt from WILIAM Chang. Pt opens eyes, follows simple commands and nods for yes or no. No signs of distress. orally intubated, ETT 7.5/23cm at lip line, vent settings AC 14/TV400/Fio2 40%/PEEP5, Spo2 100%, RR 17. Copious amt of thick white secretions. Left lower lobe more diminished than right side. GIANNI AV shunt positive for thrill and bruit. Anuric. x2 RH 20G asymptomatic and patent, TKO. PEG running Nepro@40cc/hr, no residual, non distended and HOB 35 degrees. Dressing on sacral, bilateral heels intact and clean. Bilateral soft wrist restraints, skin intact, warm to touch. restless. Reoriented and explained reason for restraints. Rectal tube draining green/black watery stool. Bed locked, alarmed and in lowest position. Will continue plan of care.
--- NOTE | 2019-03-01 07:27 | General Progress Note ---
Assessment/Plan Problem List: (1) Anemia ICD Codes: D64.9 - Anemia, unspecified SNOMED: 471622030 (2) Diabetes ICD Codes: E11.9 - Type 2 diabetes mellitus without complications SNOMED: 00322080 (3) CHF (congestive heart failure) ICD Codes: I50.9 - Heart failure, unspecified SNOMED: 85641151 (4) Respiratory failure ICD Codes: J96.90 - Respiratory failure, unspecified, unspecified whether with hypoxia or hypercapnia SNOMED: 912421710 Qualifiers: Qualified Codes: J96.01 - Acute respiratory failure with hypoxia; J96.02 - Acute respiratory failure with hypercapnia Status: stable Assessment/Plan: s/p EGD SUMMARY OF FINDINGS: Evidence of significant esophageal possibly necrosis in the distal esophagus most probably the source of bleeding, which we could not do anything endoscopically to control it. stable H&H, no recurrent bleed reported PLAN: GTF strict aspiration precautions, elevate the head of the bed at all times. prevacid 30 mg BID Monitor hemoglobin and hematocrit every 8 hours and transfuse to keep hemoglobin above 8. Carafate 1 g every 6 hours. repeat endoscopy if patient has recurrent bleed Subjective ROS Limited/Unobtainable: No Allergies: Coded Allergies: No Known Allergies (Unverified , 05/11/18) Objective Last 24 Hour Vital Signs Date Time Temp Pulse Resp B/P (MAP) Pulse Ox O2 Delivery O2 Flow Rate FiO2 03/01/19 07:17 61 14 40 03/01/19 07:16 61 14 100 Mechanical Ventilator 40 03/01/19 06:00 67 19 140/46 (77) 99 03/01/19 05:08 66 16 40 03/01/19 05:00 65 15 141/59 (86) 99 03/01/19 04:00 98.8 58 15 120/46 (70) 99 03/01/19 04:00 Mechanical Ventilator 03/01/19 04:00 67 03/01/19 04:00 40 03/01/19 03:21 70 20 40 03/01/19 03:00 58 15 124/46 (72) 99 03/01/19 02:00 58 15 120/46 (70) 99 03/01/19 01:00 62 15 110/56 (74) 99 03/01/19 00:33 74 22 40 03/01/19 00:15 74 20 100 Mechanical Ventilator 40 03/01/19 00:07 74 22 100 Mechanical Ventilator 40 03/01/19 00:00 40 03/01/19 00:00 98.0 67 17 120/46 (70) 100 03/01/19 00:00 Mechanical Ventilator 02/28/19 23:13 64 15 40 02/28/19 23:00 56 20 104/56 (72) 98 02/28/19 22:00 52 21 143/66 (91) 96 02/28/19 21:00 107/48 02/28/19 21:00 61 15 107/40 (62) 99 02/28/19 20:58 62 14 40 02/28/19 20:00 40 02/28/19 20:00 98.6 67 20 112/54 (73) 99 02/28/19 20:00 67 02/28/19 20:00 Mechanical Ventilator 02/28/19 19:00 65 18 116/52 (73) 100 02/28/19 18:39 59 14 100 Mechanical Ventilator 40 02/28/19 18:35 66 14 40 02/28/19 18:30 66 14 100 Mechanical Ventilator 40 02/28/19 18:00 63 15 124/46 (72) 100 02/28/19 17:07 62 14 40 02/28/19 17:00 65 20 140/69 (92) 100 02/28/19 16:00 63 22 123/48 (73) 100 02/28/19 16:00 40 02/28/19 16:00 Mechanical Ventilator 02/28/19 16:00 98.1 65 16 123/48 (73) 100 02/28/19 16:00 65 02/28/19 15:00 62 16 126/47 (73) 100 02/28/19 14:36 64 16 40 02/28/19 14:00 97.8 62 14 111/47 (68) 100 02/28/19 13:00 70 17 135/46 (75) 100 02/28/19 12:44 63 16 40 02/28/19 12:43 64 14 100 Mechanical Ventilator 40 02/28/19 12:37 64 19 100 Mechanical Ventilator 40 02/28/19 12:00 40 02/28/19 12:00 64 02/28/19 12:00 Mechanical Ventilator 02/28/19 12:00 68 14 121/47 (71) 100 02/28/19 11:01 66 18 40 02/28/19 11:00 62 17 139/51 (80) 100 02/28/19 10:00 63 20 104/49 (67) 100 02/28/19 09:16 66 26 02/28/19 09:05 109/84 02/28/19 09:05 63 135/49 02/28/19 09:00 63 20 107/44 (65) 100 02/28/19 08:00 40 02/28/19 08:00 Mechanical Ventilator 02/28/19 08:00 62 17 135/84 (101) 100 02/28/19 08:00 62 Intake and Output 02/28/19 03/01/19 18:59 06:59 Intake Total 540 ml 515 ml Output Total 50 ml 0 ml Balance 490 ml 515 ml Intake Free Water 180 ml 100 ml IV Total 55 ml Tube Feeding 360 ml 360 ml Output Urine Total 50 ml 0 ml Laboratory Tests 03/01/19 05:25: White Blood Count 6.7, Red Blood Count 2.55L, Hemoglobin 8.2L, Hematocrit 24.0L , Mean Corpuscular Volume 94, Mean Corpuscular Hemoglobin 32.1H, Mean Corpuscular Hemoglobin Concent 34.0, Red Cell Distribution Width 15.4H, Platelet Count 187, Mean Platelet Volume 5.3L, Neutrophils (%) (Auto) 74.0, Lymphocytes (%) (Auto) 9.5L, Monocytes (%) (Auto) 9.7, Eosinophils (%) (Auto) 5.3H, Basophils (%) (Auto) 1.5, Troponin I 0.040, Pro-B-Type Natriuretic Peptide 63659T Height (Feet): 5 Height (Inches): 3.00 Weight (Pounds): 136 General Appearance: lethargic EENT: normal ENT inspection Neck: supple Cardiovascular: regular rhythm Respiratory/Chest: decreased breath sounds Abdomen: normal bowel sounds, non tender, soft Extremities: non-tender Hilton Taylor MD Mar 01, 2019 07:27
--- NOTE | 2019-03-01 08:38 | Infectious Diseases Prog Note ---
Assessment/Plan Assessment/Plan A; 1. Possible pneumonia that is improving. 2. Pleural effusions. 3. Congestive heart failure. 4. Renal failure, on dialysis. 5. Sick sinus syndrome. 6. Necrotizing esophagitis. 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 Acute respiratory failure PLAN: 1. Continue Zosyn & fluconazole Subjective ROS Limited/Unobtainable: Yes Gastrointestinal/Abdominal: Reports: blood in stool Allergies: Coded Allergies: No Known Allergies (Unverified , 05/11/18) Objective Vital Signs Last 24 Hour Vital Signs Date Time Temp Pulse Resp B/P (MAP) Pulse Ox O2 Delivery O2 Flow Rate FiO2 03/01/19 08:00 Mechanical Ventilator 03/01/19 08:00 40 03/01/19 07:25 72 20 100 Mechanical Ventilator 40 03/01/19 07:17 61 14 40 03/01/19 07:16 61 14 100 Mechanical Ventilator 40 03/01/19 07:00 98.0 61 16 135/50 (78) 100 03/01/19 07:00 67 19 140/46 (77) 99 03/01/19 06:00 67 19 140/46 (77) 99 03/01/19 05:08 66 16 40 03/01/19 05:00 65 15 141/59 (86) 99 03/01/19 04:00 98.8 58 15 120/46 (70) 99 03/01/19 04:00 Mechanical Ventilator 03/01/19 04:00 67 03/01/19 04:00 40 03/01/19 03:21 70 20 40 03/01/19 03:00 58 15 124/46 (72) 99 03/01/19 02:00 58 15 120/46 (70) 99 03/01/19 01:00 62 15 110/56 (74) 99 03/01/19 00:33 74 22 40 03/01/19 00:15 74 20 100 Mechanical Ventilator 40 03/01/19 00:07 74 22 100 Mechanical Ventilator 40 03/01/19 00:00 40 03/01/19 00:00 98.0 67 17 120/46 (70) 100 03/01/19 00:00 Mechanical Ventilator 02/28/19 23:13 64 15 40 02/28/19 23:00 56 20 104/56 (72) 98 02/28/19 22:00 52 21 143/66 (91) 96 02/28/19 21:00 107/48 02/28/19 21:00 61 15 107/40 (62) 99 02/28/19 20:58 62 14 40 02/28/19 20:00 40 02/28/19 20:00 98.6 67 20 112/54 (73) 99 02/28/19 20:00 67 02/28/19 20:00 Mechanical Ventilator 02/28/19 19:00 65 18 116/52 (73) 100 02/28/19 18:39 59 14 100 Mechanical Ventilator 40 02/28/19 18:35 66 14 40 02/28/19 18:30 66 14 100 Mechanical Ventilator 40 02/28/19 18:00 63 15 124/46 (72) 100 02/28/19 17:07 62 14 40 02/28/19 17:00 65 20 140/69 (92) 100 02/28/19 16:00 63 22 123/48 (73) 100 02/28/19 16:00 40 02/28/19 16:00 Mechanical Ventilator 02/28/19 16:00 98.1 65 16 123/48 (73) 100 02/28/19 16:00 65 02/28/19 15:00 62 16 126/47 (73) 100 02/28/19 14:36 64 16 40 02/28/19 14:00 97.8 62 14 111/47 (68) 100 02/28/19 13:00 70 17 135/46 (75) 100 02/28/19 12:44 63 16 40 02/28/19 12:43 64 14 100 Mechanical Ventilator 40 02/28/19 12:37 64 19 100 Mechanical Ventilator 40 02/28/19 12:00 40 02/28/19 12:00 64 02/28/19 12:00 Mechanical Ventilator 02/28/19 12:00 68 14 121/47 (71) 100 02/28/19 11:01 66 18 40 02/28/19 11:00 62 17 139/51 (80) 100 02/28/19 10:00 63 20 104/49 (67) 100 02/28/19 09:16 66 26 02/28/19 09:05 109/84 02/28/19 09:05 63 135/49 02/28/19 09:00 63 20 107/44 (65) 100 Height (Feet): 5 Height (Inches): 3.00 Weight (Pounds): 136 General Appearance: cachetic HEENT: other - orally intubated Respiratory/Chest: lungs clear, other - on ventilator Cardiovascular: normal rate Abdomen: soft, non tender, other - rectal tube, GT feeding Extremities: no edema Neurologic/Psychiatric: unresponsiveness Musculoskeletal: atrophy Laboratory Tests Test 03/01/19 05:25 White Blood Count 6.7 K/UL (4.8-10.8) Red Blood Count 2.55 M/UL (4.20-5.40) L Hemoglobin 8.2 G/DL (12.0-16.0) L Hematocrit 24.0 % (37.0-47.0) L Mean Corpuscular Volume 94 FL (80-99) Mean Corpuscular Hemoglobin 32.1 PG (27.0-31.0) H Mean Corpuscular Hemoglobin Concent 34.0 G/DL (32.0-36.0) Red Cell Distribution Width 15.4 % (11.6-14.8) H Platelet Count 187 K/UL (150-450) Mean Platelet Volume 5.3 FL (6.5-10.1) L Neutrophils (%) (Auto) 74.0 % (45.0-75.0) Lymphocytes (%) (Auto) 9.5 % (20.0-45.0) L Monocytes (%) (Auto) 9.7 % (1.0-10.0) Eosinophils (%) (Auto) 5.3 % (0.0-3.0) H Basophils (%) (Auto) 1.5 % (0.0-2.0) Troponin I 0.040 ng/mL (0.000-0.056) Pro-B-Type Natriuretic Peptide 48434 pg/mL (0-125) H Current Medications Medications (Trade) Dose Ordered Sig/Konrad Route PRN Reason Start Time Stop Time Status Last Admin Dose Admin Acetaminophen (Tylenol) 650 mg Q4H PRN GT Mild Pain/Temp > 100.5 02/20/19 18:00 03/16/19 17:59 02/22/19 21:18 Acetylcysteine (Mucomyst) 100 mg TIDRT HHN 02/23/19 07:00 03/25/19 06:59 03/01/19 07:16 Albuterol/ Ipratropium (Albuterol/ Ipratropium) 3 ml Q6HRT HHN 02/28/19 01:30 03/05/19 01:29 03/01/19 07:16 Amlodipine Besylate (Norvasc) 10 mg DAILY GT 02/21/19 09:00 03/17/19 08:59 02/28/19 09:05 Dextrose (Dextrose 50%) 25 ml Q30M PRN IV Hypoglycemia 02/20/19 17:45 03/16/19 15:14 Dextrose (Dextrose 50%) 50 ml Q30M PRN IV Hypoglycemia 02/20/19 17:45 03/16/19 15:14 Epoetin Chau (Epoetin Chau(ESRD on dialysis)) 10,000 unit SAT-SAT-SAT SUBQ 02/25/19 21:00 03/27/19 20:59 02/27/19 20:45 Fluconazole/ Sodium Chloride 100 ml @ 100 mls/hr Q24H IV 02/27/19 12:00 03/06/19 11:59 02/28/19 12:04 Heparin Sodium (Porcine) (Heparin 5000 units/ml) 5,000 units EVERY 12 HOURS SUBQ 02/20/19 21:00 03/16/19 20:59 02/23/19 21:11 Insulin Aspart (NovoLOG) EVERY 6 HOURS SUBQ 02/20/19 18:00 03/16/19 16:29 03/01/19 06:20 Lansoprazole (Prevacid) 30 mg BID GT 03/01/19 09:00 03/31/19 08:59 Levothyroxine Sodium (Synthroid) 150 mcg DAILY@0630 GT 02/21/19 06:30 03/17/19 06:29 03/01/19 06:22 Lorazepam (Ativan 2mg/ml 1ml) 1 mg Q3H PRN IV For Anxiety/Agitation 02/26/19 16:45 03/05/19 16:44 03/01/19 04:00 Metoclopramide HCl (Reglan) 5 mg Q6H PRN IVP Nausea & Vomiting 02/20/19 18:00 03/20/19 17:59 Minoxidil (Loniten) 2.5 mg DAILY GT 03/01/19 09:00 03/31/19 08:59 Ondansetron HCl (Zofran) 4 mg Q6H PRN IVP Nausea & Vomiting 02/20/19 18:00 03/19/19 17:59 Piperacillin Sod/ Tazobactam Sod 2.25 gm/Dextrose 55 ml @ 110 mls/hr Q8HR IVPB 02/26/19 22:00 03/03/19 21:59 03/01/19 06:13 Sucralfate (Carafate) 1 gm Q6HR GT 02/25/19 12:00 03/27/19 11:59 03/01/19 06:22 Kaden Aguilar MD Mar 01, 2019 08:38
[2019-03-01] MEDS: Heparin 5000 units/ml inj SUBQ SCH ×2 (09:00→20:44)
[2019-03-01] MEDS: Minoxidil 2.5mg tab GT SCH (09:01)
--- NOTE | 2019-03-01 09:24 | Pulmonology Progress Note ---
Assessment/Plan Assessment/Plan 1. acute respiratory failure 2. End-stage renal failure, on dialysis. 3. COPD. 4. Schizophrenia. 5. Pulmonary edema, due to overload 6. Anemia of chronic kidney disease. 7. Sick sinus syndrome. 8. diabetes mellitus. 9. protein calorie malnutrition 10. pulmonary infiltrates PLAN monitor as is vent noted and settings reviewed weaning - reviewed care and parameteres titrate oxygen as able HD with UF keep negative as able monitor HH monitor for bleeding monitor fluid status and imaging continue supportive care and ICU management reviewed all nutrition and monitor protein levels follow up for change and recommend medications/laboratory data/nursing notes/ICU care reviewed in detail note reviewed and edited care discussed with RN and RT ICU time spent 42 minutes Subjective ROS Limited/Unobtainable: Yes Allergies: Coded Allergies: No Known Allergies (Unverified , 05/11/18) Subjective care noted on oxygen on vent as is respiratory noted ICU care reviewed d/w primary, trying to wean Objective Last 24 Hour Vital Signs Date Time Temp Pulse Resp B/P (MAP) Pulse Ox O2 Delivery O2 Flow Rate FiO2 03/01/19 09:01 134/52 03/01/19 09:01 63 134/52 03/01/19 09:00 68 17 132/53 (79) 100 03/01/19 08:00 Mechanical Ventilator 03/01/19 08:00 40 03/01/19 08:00 63 03/01/19 08:00 63 19 134/52 (79) 100 03/01/19 07:25 72 20 100 Mechanical Ventilator 40 03/01/19 07:17 61 14 40 03/01/19 07:16 61 14 100 Mechanical Ventilator 40 03/01/19 07:00 98.0 61 16 135/50 (78) 100 03/01/19 07:00 67 19 140/46 (77) 99 03/01/19 06:00 67 19 140/46 (77) 99 03/01/19 05:08 66 16 40 03/01/19 05:00 65 15 141/59 (86) 99 03/01/19 04:00 98.8 58 15 120/46 (70) 99 03/01/19 04:00 Mechanical Ventilator 03/01/19 04:00 67 03/01/19 04:00 40 03/01/19 03:21 70 20 40 03/01/19 03:00 58 15 124/46 (72) 99 03/01/19 02:00 58 15 120/46 (70) 99 03/01/19 01:00 62 15 110/56 (74) 99 03/01/19 00:33 74 22 40 03/01/19 00:15 74 20 100 Mechanical Ventilator 40 03/01/19 00:07 74 22 100 Mechanical Ventilator 40 03/01/19 00:00 40 03/01/19 00:00 98.0 67 17 120/46 (70) 100 03/01/19 00:00 Mechanical Ventilator 02/28/19 23:13 64 15 40 02/28/19 23:00 56 20 104/56 (72) 98 02/28/19 22:00 52 21 143/66 (91) 96 02/28/19 21:00 107/48 02/28/19 21:00 61 15 107/40 (62) 99 02/28/19 20:58 62 14 40 02/28/19 20:00 40 02/28/19 20:00 98.6 67 20 112/54 (73) 99 02/28/19 20:00 67 02/28/19 20:00 Mechanical Ventilator 02/28/19 19:00 65 18 116/52 (73) 100 02/28/19 18:39 59 14 100 Mechanical Ventilator 40 02/28/19 18:35 66 14 40 02/28/19 18:30 66 14 100 Mechanical Ventilator 40 02/28/19 18:00 63 15 124/46 (72) 100 02/28/19 17:07 62 14 40 02/28/19 17:00 65 20 140/69 (92) 100 02/28/19 16:00 63 22 123/48 (73) 100 02/28/19 16:00 40 02/28/19 16:00 Mechanical Ventilator 02/28/19 16:00 98.1 65 16 123/48 (73) 100 02/28/19 16:00 65 02/28/19 15:00 62 16 126/47 (73) 100 02/28/19 14:36 64 16 40 02/28/19 14:00 97.8 62 14 111/47 (68) 100 02/28/19 13:00 70 17 135/46 (75) 100 02/28/19 12:44 63 16 40 6/1/19 12:43 64 14 100 Mechanical Ventilator 40 02/28/19 12:37 64 19 100 Mechanical Ventilator 40 02/28/19 12:00 40 02/28/19 12:00 64 02/28/19 12:00 Mechanical Ventilator 02/28/19 12:00 68 14 121/47 (71) 100 02/28/19 11:01 66 18 40 02/28/19 11:00 62 17 139/51 (80) 100 02/28/19 10:00 63 20 104/49 (67) 100 Intake and Output 02/28/19 03/01/19 18:59 06:59 Intake Total 540 ml 515 ml Output Total 50 ml 0 ml Balance 490 ml 515 ml Intake Free Water 180 ml 100 ml IV Total 55 ml Tube Feeding 360 ml 360 ml Output Urine Total 50 ml 0 ml Objective WDWN on vent ETT in place reduced breath sounds bilaterally without rhonchi or wheeze [id number] without MRG NABS nontender no HSM no CC mild edema nonfocal and sedated reviewed and edited Laboratory Tests 03/01/19 05:25: White Blood Count 6.7, Red Blood Count 2.55L, Hemoglobin 8.2L, Hematocrit 24.0L , Mean Corpuscular Volume 94, Mean Corpuscular Hemoglobin 32.1H, Mean Corpuscular Hemoglobin Concent 34.0, Red Cell Distribution Width 15.4H, Platelet Count 187, Mean Platelet Volume 5.3L, Neutrophils (%) (Auto) 74.0, Lymphocytes (%) (Auto) 9.5L, Monocytes (%) (Auto) 9.7, Eosinophils (%) (Auto) 5.3H, Basophils (%) (Auto) 1.5, Troponin I 0.040, Pro-B-Type Natriuretic Peptide 40128V Current Medications Medications (Trade) Dose Ordered Sig/Konrad Route PRN Reason Start Time Stop Time Status Last Admin Dose Admin Acetaminophen (Tylenol) 650 mg Q4H PRN GT Mild Pain/Temp > 100.5 02/20/19 18:00 03/16/19 17:59 02/22/19 21:18 Acetylcysteine (Mucomyst) 100 mg TIDRT HHN 02/23/19 07:00 03/25/19 06:59 03/01/19 07:16 Albuterol/ Ipratropium (Albuterol/ Ipratropium) 3 ml Q6HRT HHN 02/28/19 01:30 03/05/19 01:29 03/01/19 07:16 Amlodipine Besylate (Norvasc) 10 mg DAILY GT 02/21/19 09:00 03/17/19 08:59 03/01/19 09:01 Dextrose (Dextrose 50%) 25 ml Q30M PRN IV Hypoglycemia 02/20/19 17:45 03/16/19 15:14 Dextrose (Dextrose 50%) 50 ml Q30M PRN IV Hypoglycemia 02/20/19 17:45 03/16/19 15:14 Epoetin Chau (Epoetin Chau(ESRD on dialysis)) 10,000 unit SAT-SAT-SAT SUBQ 02/25/19 21:00 03/27/19 20:59 02/27/19 20:45 Fluconazole/ Sodium Chloride 100 ml @ 100 mls/hr Q24H IV 02/27/19 12:00 03/06/19 11:59 02/28/19 12:04 Heparin Sodium (Porcine) (Heparin 5000 units/ml) 5,000 units EVERY 12 HOURS SUBQ 02/20/19 21:00 03/16/19 20:59 02/23/19 21:11 Insulin Aspart (NovoLOG) EVERY 6 HOURS SUBQ 02/20/19 18:00 03/16/19 16:29 03/01/19 06:20 Lansoprazole (Prevacid) 30 mg BID GT 03/01/19 09:00 03/31/19 08:59 03/01/19 09:01 Levothyroxine Sodium (Synthroid) 150 mcg DAILY@0630 GT 02/21/19 06:30 03/17/19 06:29 03/01/19 06:22 Lorazepam (Ativan 2mg/ml 1ml) 1 mg Q3H PRN IV For Anxiety/Agitation 02/26/19 16:45 03/05/19 16:44 03/01/19 04:00 Metoclopramide HCl (Reglan) 5 mg Q6H PRN IVP Nausea & Vomiting 02/20/19 18:00 03/20/19 17:59 Minoxidil (Loniten) 2.5 mg DAILY GT 03/01/19 09:00 03/31/19 08:59 03/01/19 09:01 Ondansetron HCl (Zofran) 4 mg Q6H PRN IVP Nausea & Vomiting 02/20/19 18:00 03/19/19 17:59 Piperacillin Sod/ Tazobactam Sod 2.25 gm/Dextrose 55 ml @ 110 mls/hr Q8HR IVPB 02/26/19 22:00 03/03/19 21:59 03/01/19 06:13 Sucralfate (Carafate) 1 gm Q6HR GT 02/25/19 12:00 03/27/19 11:59 03/01/19 06:22 Jac Ramirez MD Mar 01, 2019 09:24
--- NOTE | 2019-03-01 09:32 | NUR ---
NURSE NOTES: Pt observed very fidgety and restless. Will hold Ativan as patient scheduled for weaning this AM. Current RR 20, Spo2 100. Received orders to increase GTF Nepro to 40cc/hr. No residual, tolerated previous feeding rate well. Copious secretions noted.
--- NOTE | 2019-03-01 11:00 | NUR ---
NURSE NOTES: Initiated weaning by RT. SIMV/PS 10, tolerating well. RR 24, HR 65, no signs of resp distress.
--- NOTE | 2019-03-01 13:28 | NUR ---
NURSE NOTES: Patient was able to tolerate weaning for 1 hour and placed back on AC mode. Max NIF 6.
--- NOTE | 2019-03-01 14:08 | Nephrology Progress Note ---
Assessment/Plan Plan Respiratory Failure due to CHF + Pneumonia, m/p due to aspiration. On vent. EGD necrotizing esophagitis! CHF --- HD+UF MWF Pneumonia - IV Abx. Hct 23. May need transfusion next HD run. Subjective Subjective In ICU. Still on vent. Objective Objective Last 24 Hour Vital Signs Date Time Temp Pulse Resp B/P (MAP) Pulse Ox O2 Delivery O2 Flow Rate FiO2 03/01/19 13:16 63 14 100 Mechanical Ventilator 40 03/01/19 13:08 63 17 40 03/01/19 13:00 34 14 100 Mechanical Ventilator 40 03/01/19 13:00 63 17 124/50 (74) 100 03/01/19 12:08 100 03/01/19 12:00 67 03/01/19 12:00 98.6 70 23 132/52 (78) 100 03/01/19 12:00 Mechanical Ventilator 03/01/19 11:15 40 03/01/19 11:00 65 26 132/50 (77) 100 03/01/19 11:00 66 15 40 03/01/19 10:00 62 15 132/52 (78) 100 03/01/19 09:29 66 14 40 03/01/19 09:01 134/52 03/01/19 09:01 63 134/52 03/01/19 09:00 68 17 132/53 (79) 100 03/01/19 08:00 Mechanical Ventilator 03/01/19 08:00 40 03/01/19 08:00 63 03/01/19 08:00 63 19 134/52 (79) 100 03/01/19 07:25 72 20 100 Mechanical Ventilator 40 03/01/19 07:17 61 14 40 03/01/19 07:16 61 14 100 Mechanical Ventilator 40 03/01/19 07:00 98.0 61 16 135/50 (78) 100 03/01/19 07:00 67 19 140/46 (77) 99 03/01/19 06:00 67 19 140/46 (77) 99 03/01/19 05:08 66 16 40 03/01/19 05:00 65 15 141/59 (86) 99 03/01/19 04:00 98.8 58 15 120/46 (70) 99 03/01/19 04:00 Mechanical Ventilator 03/01/19 04:00 67 03/01/19 04:00 40 03/01/19 03:21 70 20 40 03/01/19 03:00 58 15 124/46 (72) 99 03/01/19 02:00 58 15 120/46 (70) 99 03/01/19 01:00 62 15 110/56 (74) 99 03/01/19 00:33 74 22 40 03/01/19 00:15 74 20 100 Mechanical Ventilator 40 03/01/19 00:07 74 22 100 Mechanical Ventilator 40 03/01/19 00:00 40 03/01/19 00:00 98.0 67 17 120/46 (70) 100 03/01/19 00:00 Mechanical Ventilator 02/28/19 23:13 64 15 40 02/28/19 23:00 56 20 104/56 (72) 98 02/28/19 22:00 52 21 143/66 (91) 96 02/28/19 21:00 107/48 02/28/19 21:00 61 15 107/40 (62) 99 02/28/19 20:58 62 14 40 02/28/19 20:00 40 02/28/19 20:00 98.6 67 20 112/54 (73) 99 02/28/19 20:00 67 02/28/19 20:00 Mechanical Ventilator 02/28/19 19:00 65 18 116/52 (73) 100 02/28/19 18:39 59 14 100 Mechanical Ventilator 40 02/28/19 18:35 66 14 40 02/28/19 18:30 66 14 100 Mechanical Ventilator 40 02/28/19 18:00 63 15 124/46 (72) 100 02/28/19 17:07 62 14 40 02/28/19 17:00 65 20 140/69 (92) 100 02/28/19 16:00 63 22 123/48 (73) 100 02/28/19 16:00 40 02/28/19 16:00 Mechanical Ventilator 02/28/19 16:00 98.1 65 16 123/48 (73) 100 02/28/19 16:00 65 02/28/19 15:00 62 16 126/47 (73) 100 02/28/19 14:36 64 16 40 Intake and Output 02/28/19 03/01/19 19:00 07:00 Intake Total 540 ml 630 ml Output Total 50 ml 150 ml Balance 490 ml 480 ml Intake Free Water 180 ml 150 ml IV Total 110 ml Tube Feeding 360 ml 370 ml Output Urine Total 50 ml 0 ml Stool Total 150 ml Laboratory Tests 03/01/19 05:25: White Blood Count 6.7, Red Blood Count 2.55L, Hemoglobin 8.2L, Hematocrit 24.0L , Mean Corpuscular Volume 94, Mean Corpuscular Hemoglobin 32.1H, Mean Corpuscular Hemoglobin Concent 34.0, Red Cell Distribution Width 15.4H, Platelet Count 187, Mean Platelet Volume 5.3L, Neutrophils (%) (Auto) 74.0, Lymphocytes (%) (Auto) 9.5L, Monocytes (%) (Auto) 9.7, Eosinophils (%) (Auto) 5.3H, Basophils (%) (Auto) 1.5, Troponin I 0.040, Pro-B-Type Natriuretic Peptide 01126T Height (Feet): 5 Height (Inches): 3.00 Weight (Pounds): 136 Objective Intubated, on vent. CV RR Lungs B ronchi + wheezes. Abd SNT. BS + E No CCE Raul Cannon MD Mar 01, 2019 14:08
--- NOTE | 2019-03-01 15:46 | NUR ---
NURSE NOTES: Turned and repositioned. Oral care given, kept dry and clean. Rectal tube intact, no leaking noted.
--- NOTE | 2019-03-01 17:40 | NUR ---
NURSE NOTES: Tolerating gtf well, hob 30 degrees. copious secretion noted. Turned and repositioned.
--- NOTE | 2019-03-01 18:56 | NUR ---
HAND-OFF: Report given to WILIAM Martinez.
--- NOTE | 2019-03-01 19:21 | NUR ---
RESPIRATORY NOTE: Pt was received alert and wake on vent settings AC 14, 400 VT, 40% FiO2, PEEP +5. Airway patent and secured by anchorfast. Vent alarms are on and audible. Ambubag present at bedside. Vent is plugged into red outlet. No respiratory distress noted. Will monitor patient closely.
--- NOTE | 2019-03-01 20:00 | NUR ---
NURSE NOTES: Received patient from Candice Sandoval. Sinus rhythm on the monitor. Patient Orally intubated ETT 7.5, 23 cm lip line on AC 16, Vt 400, peep5 Fio2 40%. Peripheral IV on the right hand noted, flushed and maintained open by TKO. Left upper arm AV shunt noted with good bruit/thrill. GT feeding Nepro @ 40 cc/hr with no residual noted at this time, flushed 30 cc of water. Patient Anuric, no urine output. rectal tube draining by gravity dark green/black watery stool at this time. Patient continues on Bilateral soft wrist restraints at this time due to patient trying to pull ETT out. On p200 mattress, Bed semi fowlers, in lowest position, side rails upx3. No signs of distress noted. Will continue to monitor Addendum: 03/01/19 at 2055 by EMANUEL WISEMAN RN lip line 25 cm not 23
--- NOTE | 2019-03-01 22:00 | NUR ---
NURSE NOTES: Patient turned and repositioned at this time. Oral care done. Suctioned thick secretions. Bite block continues in place, patient bites down on ETT without bite block. No signs of distress noted. Will continue to monitor
--- NOTE | 2019-03-01 23:45 | Progress Note ---
DATE: 03/01/2019 CARDIOLOGY PROGRESS NOTE: SUBJECTIVE: The patient remains on ventilator support. Weaning efforts are ongoing. She continues to require hemodialysis with ultrafiltration per her usual schedule. OBJECTIVE: Vitals 134/52, pulse 63, respirations 17. Monitored rhythm is sinus. LABORATORY DATA: White count 6.7, hemoglobin 8.2, platelets 187,000. Troponin negative and Pro-natriuretic peptide is 32,000. IMPRESSION: 1. Respiratory failure. 2. Acute on chronic diastolic congestive heart failure. 3. End-stage renal disease. 4. Hypokalemia. PLAN: 1. Titrate and optimize antihypertensive regimen. 2. Continue hemodialysis with ultrafiltration. Adjusted per clinical parameters. 3. Weaning efforts. 4. Respiratory hygiene and bronchodilators as needed. 5. We will follow with you during this hospital course. Wilmer Hoyos M.D. DR: BRAXTON JOB#: [id number] CC:
[2019-03-02] VITALS (24 sets, daily range): BP systolic 122–174; BP diastolic 45–97
--- NOTE | 2019-03-02 | NUR ---
NURSE NOTES: Patient turned and repositioned at this time. VS stable. Rectal tube continues to drain by gravity. No signs of distress noted. Will continue to monitor
[2019-03-02] MEDS: Albuterol/Ipratropium 3ml neb HHN SCH ×4 (01:09→19:30)
[2019-03-02] MEDS: LORazepam Inj 2mg/ml 1ml IV PRN (01:59)
--- NOTE | 2019-03-02 02:00 | NUR ---
NURSE NOTES: Morning bath given at this time. GT dressing changed. Sacral dressing remains dry and intact. Rectal tube continue to drain by gravity. Patient noted to be agitated after bed bath. 1 mg ativan given at this time. Will continue to monitor.
--- NOTE | 2019-03-02 04:00 | NUR ---
NURSE NOTES: Patient noted to have clogged GT port at this time. Unclogged and Now working. Patient sleeping at this time. VS stable. No signs of distress noted. Will continue to monitor.
[2019-03-02 04:50] LABS: HEMATOCRIT 23.2 % (37.0-47.0); HEMOGLOBIN 7.7 G/DL (12.0-16.0); MEAN CORPUSCULAR VOLUME 96 FL (80-99); PLATELET COUNT 193 K/UL (150-450); RED BLOOD COUNT 2.43 M/UL (4.20-5.40); RED CELL DISTRIBUTION WIDTH 16.9 % (11.6-14.8); WHITE BLOOD COUNT 7.9 K/UL (4.8-10.8)
[2019-03-02] MEDS: Sucralfate 1gm tab GT SCH ×3 (05:47→18:28)
[2019-03-02] MEDS: Piperacillin/Tazobactam 2.25 GM in D5W 55 ML IVPB SCH ×3 (05:47→21:24)
[2019-03-02] MEDS: NovoLOG Insulin Flexpen SUBQ SCH ×3 (05:47→18:29)
[2019-03-02] MEDS ORDERED: Heparin Sod 1000 units/ml 10ml IV PRN (06:00)
--- NOTE | 2019-03-02 06:00 | NUR ---
NURSE NOTES: BS 158 at this time. Coverage given as per sliding scale. Feeding on hold due to Synthroid. Turned and repositioned for comfort. No signs of distress noted. Will continue to monitor.
--- NOTE | 2019-03-02 06:30 | NUR ---
NURSE NOTES: Dialysis nurse here to start Dialysis at this time. VS Stable HR 61, Bp 155/47. Patient sleeping at this time. No signs of distress noted.
--- NOTE | 2019-03-02 07:11 | NUR ---
RESPIRATORY NOTE: Patient received mechanically ventilated on PB 840 with current ordered vent settings. Patient is orally intubated with ETT tube size 7.5 and 23cm at the lip line. ETT tube is secured with an anchor fast. There is an ambu bag available at the bedside and the vent is connected to a red outlet. Vent alarms are functional and audible. Will continue to monitor.
--- NOTE | 2019-03-02 07:19 | NUR ---
HAND-OFF: Report given to [place] SWAIN.
[2019-03-02 07:48] LABS: ANION GAP 11 mmol/L (5-15); BLOOD UREA NITROGEN 57 mg/dL (7-18); CALCIUM 8.9 MG/DL (8.5-10.1); CARBON DIOXIDE 28 MMOL/L (21-32); CHLORIDE 100 MMOL/L (98-107); CREATININE 4.5 MG/DL (0.55-1.30); SODIUM 138 MMOL/L (136-145)
[2019-03-02 07:49] LABS: POTASSIUM 2.6 MMOL/L (3.5-5.1)
--- NOTE | 2019-03-02 08:07 | NUR ---
NURSE NOTES: Patient report received from WILIAM Martinez. Awake with ETT 7.5/25 lip line AC 14 Vt 400 FiO2 40% Peep 5.Afebrile at this time and ongoing dialysis.GT placement checked and in place.Residual check and flushed as tolerated. Abdomen soft and non distended.Mouth care done,large amount thin clean secretion, suctioned as tolerated, kept clean and dry. Rectal tube in place draining black liquid stool.Will continue to monitor.
--- NOTE | 2019-03-02 08:19 | Pulmonology Progress Note ---
Assessment/Plan Assessment/Plan 1. acute respiratory failure 2. End-stage renal failure, on dialysis. 3. COPD. 4. Schizophrenia. 5. Pulmonary edema, due to overload 6. Anemia of chronic kidney disease. 7. Sick sinus syndrome. 8. diabetes mellitus. 9. protein calorie malnutrition 10. pulmonary infiltrates PLAN monitor as is vent noted and settings reviewed weaning - as able titrate oxygen as able HD with UF replace K keep negative as able monitor HH- recommend transfusion for improved oxygen delivery monitor for bleeding monitor fluid status and imaging continue supportive care and ICU management reviewed all and monitored nutrition and monitor protein levels follow up for change and recommend medications/laboratory data/nursing notes/ICU care reviewed in detail note reviewed and edited care discussed with RN and RT ICU time spent 40 minutes Subjective ROS Limited/Unobtainable: Yes Allergies: Coded Allergies: No Known Allergies (Unverified , 05/11/18) Subjective care noted on oxygen and stable needs on vent as is respiratory noted ICU care reviewed and discussed d/w primary, trying to wean low HH; low k Objective Last 24 Hour Vital Signs Date Time Temp Pulse Resp B/P (MAP) Pulse Ox O2 Delivery O2 Flow Rate FiO2 03/02/19 07:20 Mechanical Ventilator 03/02/19 07:20 Mechanical Ventilator 03/02/19 07:06 64 15 40 03/02/19 07:00 62 14 141/45 (77) 100 03/02/19 06:00 63 14 155/47 (83) 100 03/02/19 05:00 62 15 169/47 (87) 100 03/02/19 04:57 63 15 40 03/02/19 04:00 64 03/02/19 04:00 Mechanical Ventilator 03/02/19 04:00 98.1 66 20 170/52 (91) 100 03/02/19 04:00 40 03/02/19 03:14 62 14 40 03/02/19 03:00 65 15 162/60 (94) 100 03/02/19 02:00 63 15 174/67 (102) 100 03/02/19 01:26 66 19 100 Mechanical Ventilator 40 03/02/19 01:10 65 14 100 Mechanical Ventilator 40 03/02/19 01:09 67 16 40 03/02/19 01:00 65 15 144/52 (82) 100 03/02/19 00:00 40 03/02/19 00:00 Mechanical Ventilator 03/02/19 00:00 97.9 65 16 146/55 (85) 100 03/01/19 23:00 64 15 144/52 (82) 100 03/01/19 22:00 65 13 139/53 (81) 100 03/01/19 21:26 62 14 40 03/01/19 21:00 66 14 141/59 (86) 100 03/01/19 20:00 40 03/01/19 20:00 99.1 64 14 154/63 (93) 100 03/01/19 20:00 63 03/01/19 20:00 Mechanical Ventilator 03/01/19 19:32 74 15 100 Mechanical Ventilator 40 03/01/19 19:22 70 19 100 Mechanical Ventilator 40 03/01/19 19:21 63 14 40 03/01/19 19:00 62 14 125/50 (75) 100 03/01/19 18:00 61 14 133/53 (79) 100 03/01/19 17:25 64 14 40 03/01/19 17:00 61 15 145/56 (85) 100 03/01/19 16:00 64 03/01/19 16:00 40 03/01/19 16:00 99.0 63 14 146/55 (85) 100 03/01/19 16:00 Mechanical Ventilator 03/01/19 15:15 67 18 40 03/01/19 15:00 70 21 133/64 (87) 100 03/01/19 14:00 65 23 141/54 (83) 100 03/01/19 13:16 63 14 100 Mechanical Ventilator 40 03/01/19 13:08 63 17 40 03/01/19 13:00 34 14 100 Mechanical Ventilator 40 03/01/19 13:00 63 17 124/50 (74) 100 03/01/19 12:15 40 03/01/19 12:08 100 03/01/19 12:00 67 03/01/19 12:00 98.6 70 23 132/52 (78) 100 03/01/19 12:00 Mechanical Ventilator 03/01/19 11:15 40 03/01/19 11:00 65 26 132/50 (77) 100 03/01/19 11:00 66 15 40 03/01/19 10:00 62 15 132/52 (78) 100 03/01/19 09:29 66 14 40 03/01/19 09:01 134/52 03/01/19 09:01 63 134/52 03/01/19 09:00 68 17 132/53 (79) 100 Intake and Output 03/01/19 03/02/19 19:00 07:00 Intake Total 680 ml 530 ml Output Total 20 ml Balance 660 ml 530 ml Intake Free Water 200 ml 30 ml Tube Feeding 480 ml 440 ml Other 60 ml Output Urine Total 0 ml Stool Total 20 ml Objective WDWN on vent ETT in place reduced breath sounds bilaterally without rhonchi or wheeze [id number] without MRG NABS nontender no HSM; no distention; feeding tube no CC mild edema nonfocal and sedated reviewed and edited Laboratory Tests 03/02/19 04:00: White Blood Count 7.9, Red Blood Count 2.43L, Hemoglobin 7.7L, Hematocrit 23.2L , Mean Corpuscular Volume 96, Mean Corpuscular Hemoglobin 31.7H, Mean Corpuscular Hemoglobin Concent 33.2, Red Cell Distribution Width 16.9H, Platelet Count 193, Mean Platelet Volume 5.4L, Neutrophils (%) (Auto) , Lymphocytes (%) (Auto) , Monocytes (%) (Auto) , Eosinophils (%) (Auto) , Basophils (%) (Auto) , Differential Total Cells Counted 100, Neutrophils % ( Manual) 82H, Lymphocytes % (Manual) 8L, Monocytes % (Manual) 8, Eosinophils % ( Manual) 2, Basophils % (Manual) 0, Band Neutrophils 0, Platelet Estimate Adequate, Platelet Morphology Normal, Hypochromasia 3+, Anisocytosis 1+, Spherocytes 1+, Sodium Level 138, Potassium Level 2.6*L, Chloride Level 100, Carbon Dioxide Level 28, Anion Gap 11, Blood Urea Nitrogen 57H, Creatinine 4.5H , Estimat Glomerular Filtration Rate , Glucose Level 144H, Calcium Level 8.9 Current Medications Medications (Trade) Dose Ordered Sig/[place] Route PRN Reason Start Time Stop Time Status Last Admin Dose Admin Acetaminophen (Tylenol) 650 mg Q4H PRN GT Mild Pain/Temp > 100.5 02/20/19 18:00 03/16/19 17:59 02/22/19 21:18 Acetylcysteine (Mucomyst) 100 mg TIDRT HHN 02/23/19 07:00 03/25/19 06:59 03/01/19 19:22 Albuterol/ Ipratropium (Albuterol/ Ipratropium) 3 ml Q6HRT HHN 02/28/19 01:30 03/05/19 01:29 03/02/19 01:09 Amlodipine Besylate (Norvasc) 10 mg DAILY GT 02/21/19 09:00 03/17/19 08:59 03/01/19 09:01 Dextrose (Dextrose 50%) 25 ml Q30M PRN IV Hypoglycemia 02/20/19 17:45 03/16/19 15:14 Dextrose (Dextrose 50%) 50 ml Q30M PRN IV Hypoglycemia 02/20/19 17:45 03/16/19 15:14 Epoetin Chau (Epoetin Chau(ESRD on dialysis)) 10,000 unit SAT-SAT-SAT SUBQ 02/25/19 21:00 03/27/19 20:59 02/27/19 20:45 Fluconazole/ Sodium Chloride 100 ml @ 100 mls/hr Q24H IV 02/27/19 12:00 03/06/19 11:59 03/01/19 12:28 Heparin Sodium (Porcine) (Heparin 5000 units/ml) 5,000 units EVERY 12 HOURS SUBQ 02/20/19 21:00 03/16/19 20:59 02/23/19 21:11 Heparin Sodium (Porcine) (Heparin Sod 1000 units/ml 10ml) 2,000 unit ONCE PRN IV HD 03/02/19 06:00 03/02/19 23:59 Insulin Aspart (NovoLOG) EVERY 6 HOURS SUBQ 02/20/19 18:00 03/16/19 16:29 03/02/19 05:47 Lansoprazole (Prevacid) 30 mg BID GT 03/01/19 09:00 03/31/19 08:59 03/01/19 18:27 Levothyroxine Sodium (Synthroid) 150 mcg DAILY@0630 GT 02/21/19 06:30 03/17/19 06:29 03/02/19 05:47 Lorazepam (Ativan 2mg/ml 1ml) 1 mg Q3H PRN IV For Anxiety/Agitation 02/26/19 16:45 03/05/19 16:44 03/02/19 01:59 Metoclopramide HCl (Reglan) 5 mg Q6H PRN IVP Nausea & Vomiting 02/20/19 18:00 03/20/19 17:59 Minoxidil (Loniten) 2.5 mg DAILY GT 03/01/19 09:00 03/31/19 08:59 03/01/19 09:01 Ondansetron HCl (Zofran) 4 mg Q6H PRN IVP Nausea & Vomiting 02/20/19 18:00 03/19/19 17:59 Piperacillin Sod/ Tazobactam Sod 2.25 gm/Dextrose 55 ml @ 110 mls/hr Q8HR IVPB 02/26/19 22:00 03/03/19 21:59 03/02/19 05:47 Sodium Chloride 1,000 ml @ 500 mls/hr Q2H PRN IVLG sbp<90 during hd 03/02/19 06:00 03/02/19 23:59 Sucralfate (Carafate) 1 gm Q6HR GT 02/25/19 12:00 03/27/19 11:59 03/02/19 05:47 Jac Ramirez MD Mar 02, 2019 08:19
[2019-03-02] MEDS: Minoxidil 2.5mg tab GT SCH (08:54)
[2019-03-02] MEDS: Heparin 5000 units/ml inj SUBQ SCH ×2 (08:55→21:00)
[2019-03-02] MEDS ORDERED: NS 275ml ONE (09:37)
--- NOTE | 2019-03-02 10:00 | NUR ---
NURSE NOTES: Dialysis done and 2.5L out,turned and repositioned.HOB elevated to prevent aspiration.Kept clean and dry.Will continue to monitor
--- NOTE | 2019-03-02 10:16 | GI Progress Note ---
Assessment/Plan Problems: (1) Anemia ICD Codes: D64.9 - Anemia, unspecified SNOMED: 563436002 (2) Respiratory failure ICD Codes: J96.90 - Respiratory failure, unspecified, unspecified whether with hypoxia or hypercapnia SNOMED: 825661504 Qualifiers: Qualified Codes: J96.01 - Acute respiratory failure with hypoxia; J96.02 - Acute respiratory failure with hypercapnia (3) End stage renal disease on dialysis ICD Codes: N18.6 - End stage renal disease; Z99.2 - Dependence on renal dialysis SNOMED: 077875463 Status: unchanged Status Narrative Discussed with Dr. Taylor. Assessment/Plan s/p EGD SUMMARY OF FINDINGS: Evidence of significant esophageal possibly necrosis in the distal esophagus most probably the source of bleeding, which we could not do anything endoscopically to control it. stable H&H, no recurrent bleed reported PLAN: GTF strict aspiration precautions, elevate the head of the bed at all times. prevacid 30 mg BID Monitor hemoglobin and hematocrit every 8 hours and transfuse to keep hemoglobin above 8. Carafate 1 g every 6 hours. repeat endoscopy if patient has recurrent bleed The patient was seen and examined at bedside and all new and available data was reviewed in the patients chart. I agree with the above findings, impression and plan. (Patient seen earlier today. Signature stamp does not reflect patient encounter time.). - Hilton Taylor MD Subjective Subjective Limited Objective Last 24 Hour Vital Signs Date Time Temp Pulse Resp B/P (MAP) Pulse Ox O2 Delivery O2 Flow Rate FiO2 03/02/19 09:00 74 19 162/67 (98) 100 03/02/19 08:54 134/51 03/02/19 08:54 70 134/51 03/02/19 08:52 69 16 40 03/02/19 08:00 Mechanical Ventilator 03/02/19 08:00 40 03/02/19 08:00 98.2 69 19 134/51 (78) 100 03/02/19 07:20 Mechanical Ventilator 03/02/19 07:20 Mechanical Ventilator 03/02/19 07:06 64 15 40 03/02/19 07:00 62 14 141/45 (77) 100 03/02/19 06:00 63 14 155/47 (83) 100 03/02/19 05:00 62 15 169/47 (87) 100 03/02/19 04:57 63 15 40 03/02/19 04:00 64 03/02/19 04:00 Mechanical Ventilator 03/02/19 04:00 98.1 66 20 170/52 (91) 100 03/02/19 04:00 40 03/02/19 03:14 62 14 40 03/02/19 03:00 65 15 162/60 (94) 100 03/02/19 02:00 63 15 174/67 (102) 100 03/02/19 01:26 66 19 100 Mechanical Ventilator 40 03/02/19 01:10 65 14 100 Mechanical Ventilator 40 03/02/19 01:09 67 16 40 03/02/19 01:00 65 15 144/52 (82) 100 03/02/19 00:00 40 03/02/19 00:00 Mechanical Ventilator 03/02/19 00:00 97.9 65 16 146/55 (85) 100 03/01/19 23:00 64 15 144/52 (82) 100 03/01/19 22:00 65 13 139/53 (81) 100 03/01/19 21:26 62 14 40 03/01/19 21:00 66 14 141/59 (86) 100 03/01/19 20:00 40 03/01/19 20:00 99.1 64 14 154/63 (93) 100 03/01/19 20:00 63 03/01/19 20:00 Mechanical Ventilator 03/01/19 19:32 74 15 100 Mechanical Ventilator 40 03/01/19 19:22 70 19 100 Mechanical Ventilator 40 03/01/19 19:21 63 14 40 03/01/19 19:00 62 14 125/50 (75) 100 03/01/19 18:00 61 14 133/53 (79) 100 03/01/19 17:25 64 14 40 03/01/19 17:00 61 15 145/56 (85) 100 03/01/19 16:00 64 03/01/19 16:00 40 03/01/19 16:00 99.0 63 14 146/55 (85) 100 03/01/19 16:00 Mechanical Ventilator 03/01/19 15:15 67 18 40 03/01/19 15:00 70 21 133/64 (87) 100 03/01/19 14:00 65 23 141/54 (83) 100 03/01/19 13:16 63 14 100 Mechanical Ventilator 40 03/01/19 13:08 63 17 40 03/01/19 13:00 34 14 100 Mechanical Ventilator 40 03/01/19 13:00 63 17 124/50 (74) 100 03/01/19 12:15 40 03/01/19 12:08 100 03/01/19 12:00 67 03/01/19 12:00 98.6 70 23 132/52 (78) 100 03/01/19 12:00 Mechanical Ventilator 03/01/19 11:15 40 03/01/19 11:00 65 26 132/50 (77) 100 03/01/19 11:00 66 15 40 Intake and Output 03/01/19 03/02/19 18:59 06:59 Intake Total 685 ml 670 ml Output Total 150 ml 20 ml Balance 535 ml 650 ml Intake Free Water 150 ml 130 ml IV Total 55 ml Tube Feeding 480 ml 480 ml Other 60 ml Output Urine Total 0 ml Stool Total 150 ml 20 ml Laboratory Tests Test 03/02/19 04:00 White Blood Count 7.9 K/UL (4.8-10.8) Red Blood Count 2.43 M/UL (4.20-5.40) L Hemoglobin 7.7 G/DL (12.0-16.0) L Hematocrit 23.2 % (37.0-47.0) L Mean Corpuscular Volume 96 FL (80-99) Mean Corpuscular Hemoglobin 31.7 PG (27.0-31.0) H Mean Corpuscular Hemoglobin Concent 33.2 G/DL (32.0-36.0) Red Cell Distribution Width 16.9 % (11.6-14.8) H Platelet Count 193 K/UL (150-450) Mean Platelet Volume 5.4 FL (6.5-10.1) L Neutrophils (%) (Auto) % (45.0-75.0) Lymphocytes (%) (Auto) % (20.0-45.0) Monocytes (%) (Auto) % (1.0-10.0) Eosinophils (%) (Auto) % (0.0-3.0) Basophils (%) (Auto) % (0.0-2.0) Differential Total Cells Counted 100 Neutrophils % (Manual) 82 % (45-75) H Lymphocytes % (Manual) 8 % (20-45) L Monocytes % (Manual) 8 % (1-10) Eosinophils % (Manual) 2 % (0-3) Basophils % (Manual) 0 % (0-2) Band Neutrophils 0 % (0-8) Platelet Estimate Adequate Platelet Morphology Normal Hypochromasia 3+ Anisocytosis 1+ Spherocytes 1+ Sodium Level 138 MMOL/L (136-145) Potassium Level 2.6 MMOL/L (3.5-5.1) *L Chloride Level 100 MMOL/L (98-107) Carbon Dioxide Level 28 MMOL/L (21-32) Anion Gap 11 mmol/L (5-15) Blood Urea Nitrogen 57 mg/dL (7-18) H Creatinine 4.5 MG/DL (0.55-1.30) H Estimat Glomerular Filtration Rate mL/min (>60) Glucose Level 144 MG/DL (74-106) H Calcium Level 8.9 MG/DL (8.5-10.1) Height (Feet): 5 Height (Inches): 3.00 Weight (Pounds): 140 General Appearance: no apparent distress, thin Cardiovascular: normal rate Respiratory/Chest: normal breath sounds, no respiratory distress, other Abdominal Exam: normal bowel sounds, non tender, soft, GT site - c/d/i Extremities: normal range of motion, non-tender Janene Ellis NP Mar 02, 2019 10:16
--- NOTE | 2019-03-02 11:09 | NUR ---
RESPIRATORY NOTE: Attempted weaning criteria. Patient failed did not proceed to weaning. RN made aware.
--- NOTE | 2019-03-02 11:20 | NUR ---
NURSE NOTES: Weaning attempted and failed instantly.Dr Quintero made aware
--- NOTE | 2019-03-02 11:21 | Nephrology Progress Note ---
Assessment/Plan Plan Respiratory Failure due to CHF + Pneumonia, m/p due to aspiration. On vent. CHF --- HD+UF MWF Pneumonia - IV Abx. Weaning trials ongoing. Subjective Subjective In ICU. Still on vent. Just had HD. SULMA HD RN. Objective Objective Last 24 Hour Vital Signs Date Time Temp Pulse Resp B/P (MAP) Pulse Ox O2 Delivery O2 Flow Rate FiO2 03/02/19 11:04 70 16 40 03/02/19 10:00 73 19 162/68 (99) 100 03/02/19 09:00 74 19 162/67 (98) 100 03/02/19 08:54 134/51 03/02/19 08:54 70 134/51 03/02/19 08:52 69 16 40 03/02/19 08:00 Mechanical Ventilator 03/02/19 08:00 40 03/02/19 08:00 98.2 69 19 134/51 (78) 100 03/02/19 08:00 64 03/02/19 07:20 Mechanical Ventilator 03/02/19 07:20 Mechanical Ventilator 03/02/19 07:06 64 15 40 03/02/19 07:00 62 14 141/45 (77) 100 03/02/19 06:00 63 14 155/47 (83) 100 03/02/19 05:00 62 15 169/47 (87) 100 03/02/19 04:57 63 15 40 03/02/19 04:00 64 03/02/19 04:00 Mechanical Ventilator 03/02/19 04:00 98.1 66 20 170/52 (91) 100 03/02/19 04:00 40 03/02/19 03:14 62 14 40 03/02/19 03:00 65 15 162/60 (94) 100 03/02/19 02:00 63 15 174/67 (102) 100 03/02/19 01:26 66 19 100 Mechanical Ventilator 40 03/02/19 01:10 65 14 100 Mechanical Ventilator 40 03/02/19 01:09 67 16 40 03/02/19 01:00 65 15 144/52 (82) 100 03/02/19 00:00 40 03/02/19 00:00 Mechanical Ventilator 03/02/19 00:00 97.9 65 16 146/55 (85) 100 03/01/19 23:00 64 15 144/52 (82) 100 03/01/19 22:00 65 13 139/53 (81) 100 03/01/19 21:26 62 14 40 03/01/19 21:00 66 14 141/59 (86) 100 03/01/19 20:00 40 03/01/19 20:00 99.1 64 14 154/63 (93) 100 03/01/19 20:00 63 03/01/19 20:00 Mechanical Ventilator 03/01/19 19:32 74 15 100 Mechanical Ventilator 40 03/01/19 19:22 70 19 100 Mechanical Ventilator 40 03/01/19 19:21 63 14 40 03/01/19 19:00 62 14 125/50 (75) 100 03/01/19 18:00 61 14 133/53 (79) 100 03/01/19 17:25 64 14 40 03/01/19 17:00 61 15 145/56 (85) 100 03/01/19 16:00 64 03/01/19 16:00 40 03/01/19 16:00 99.0 63 14 146/55 (85) 100 03/01/19 16:00 Mechanical Ventilator 03/01/19 15:15 67 18 40 03/01/19 15:00 70 21 133/64 (87) 100 03/01/19 14:00 65 23 141/54 (83) 100 03/01/19 13:16 63 14 100 Mechanical Ventilator 40 03/01/19 13:08 63 17 40 03/01/19 13:00 34 14 100 Mechanical Ventilator 40 03/01/19 13:00 63 17 124/50 (74) 100 03/01/19 12:15 40 03/01/19 12:08 100 03/01/19 12:00 67 03/01/19 12:00 98.6 70 23 132/52 (78) 100 03/01/19 12:00 Mechanical Ventilator Intake and Output 03/01/19 03/02/19 18:59 06:59 Intake Total 685 ml 670 ml Output Total 150 ml 20 ml Balance 535 ml 650 ml Intake Free Water 150 ml 130 ml IV Total 55 ml Tube Feeding 480 ml 480 ml Other 60 ml Output Urine Total 0 ml Stool Total 150 ml 20 ml Laboratory Tests 03/02/19 04:00: White Blood Count 7.9, Red Blood Count 2.43L, Hemoglobin 7.7L, Hematocrit 23.2L , Mean Corpuscular Volume 96, Mean Corpuscular Hemoglobin 31.7H, Mean Corpuscular Hemoglobin Concent 33.2, Red Cell Distribution Width 16.9H, Platelet Count 193, Mean Platelet Volume 5.4L, Neutrophils (%) (Auto) , Lymphocytes (%) (Auto) , Monocytes (%) (Auto) , Eosinophils (%) (Auto) , Basophils (%) (Auto) , Differential Total Cells Counted 100, Neutrophils % ( Manual) 82H, Lymphocytes % (Manual) 8L, Monocytes % (Manual) 8, Eosinophils % ( Manual) 2, Basophils % (Manual) 0, Band Neutrophils 0, Platelet Estimate Adequate, Platelet Morphology Normal, Hypochromasia 3+, Anisocytosis 1+, Spherocytes 1+, Sodium Level 138, Potassium Level 2.6*L, Chloride Level 100, Carbon Dioxide Level 28, Anion Gap 11, Blood Urea Nitrogen 57H, Creatinine 4.5H , Estimat Glomerular Filtration Rate , Glucose Level 144H, Calcium Level 8.9 Height (Feet): 5 Height (Inches): 3.00 Weight (Pounds): 140 Objective Intubated, on vent. CV RR Lungs B ronchi + wheezes. Abd SNT. BS + E No CCE Raul Cannon MD Mar 02, 2019 11:21
--- NOTE | 2019-03-02 11:23 | NUR ---
NURSE NOTES: Seen by Dr Quintero,will follow up with new orders, made aware potassium level and coverage given
--- NOTE | 2019-03-02 11:38 | NUR ---
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 * Increased kcal/prot needs R/T renal dysfunction, ESRD, wound healing, underweight status as evidenced by pt on HD, admitted w/ sacral partial thickness wound per director of community services, low BMI per guidelines, pt @ 89% IBW. ENTERAL NUTRITION RECOMMENDATIONS: Nepro @ 40ml/hr x 22 hrs to provide 880ml, 1584kcal, 71g prot, 640ml free water * Maintain @goal rate as tolerated * Hold 1 hr before and after Synthroid med * HOB over 30 degrees/ water flush per MD ADDITIONAL RECOMMENDATIONS: * Per SNF record: HT=66", TO=080san (02/09/19) -> rec calibrated bedscale wt. Current bedscale reads 139lbs/140lbs * Obtain dry wt post HD * F/UP w/ WC eval for sacral wound -> continue Zeke 1pkt BID * Probiotics for diarrhea
--- NOTE | 2019-03-02 11:38 | Infectious Diseases Prog Note ---
Assessment/Plan Assessment/Plan A; 1. Possible pneumonia that is improving. 2. Pleural effusions. 3. Congestive heart failure. 4. Renal failure, on dialysis. 5. Sick sinus syndrome. 6. Necrotizing esophagitis. 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 Acute respiratory failure PLAN: 1. Continue Zosyn & fluconazole Subjective ROS Limited/Unobtainable: Yes Respiratory: Reports: other - failed weaning Neurologic: Reports: confusion, other - on restraint Allergies: Coded Allergies: No Known Allergies (Unverified , 05/11/18) Objective Vital Signs Last 24 Hour Vital Signs Date Time Temp Pulse Resp B/P (MAP) Pulse Ox O2 Delivery O2 Flow Rate FiO2 03/02/19 11:04 70 16 40 03/02/19 10:00 73 19 162/68 (99) 100 03/02/19 09:00 74 19 162/67 (98) 100 03/02/19 08:54 134/51 03/02/19 08:54 70 134/51 03/02/19 08:52 69 16 40 03/02/19 08:00 Mechanical Ventilator 03/02/19 08:00 40 03/02/19 08:00 98.2 69 19 134/51 (78) 100 03/02/19 08:00 64 03/02/19 07:20 Mechanical Ventilator 03/02/19 07:20 Mechanical Ventilator 03/02/19 07:06 64 15 40 03/02/19 07:00 62 14 141/45 (77) 100 03/02/19 06:00 63 14 155/47 (83) 100 03/02/19 05:00 62 15 169/47 (87) 100 03/02/19 04:57 63 15 40 03/02/19 04:00 64 03/02/19 04:00 Mechanical Ventilator 03/02/19 04:00 98.1 66 20 170/52 (91) 100 03/02/19 04:00 40 03/02/19 03:14 62 14 40 03/02/19 03:00 65 15 162/60 (94) 100 03/02/19 02:00 63 15 174/67 (102) 100 03/02/19 01:26 66 19 100 Mechanical Ventilator 40 03/02/19 01:10 65 14 100 Mechanical Ventilator 40 03/02/19 01:09 67 16 40 03/02/19 01:00 65 15 144/52 (82) 100 03/02/19 00:00 40 03/02/19 00:00 Mechanical Ventilator 03/02/19 00:00 97.9 65 16 146/55 (85) 100 03/01/19 23:00 64 15 144/52 (82) 100 03/01/19 22:00 65 13 139/53 (81) 100 03/01/19 21:26 62 14 40 03/01/19 21:00 66 14 141/59 (86) 100 03/01/19 20:00 40 03/01/19 20:00 99.1 64 14 154/63 (93) 100 03/01/19 20:00 63 03/01/19 20:00 Mechanical Ventilator 03/01/19 19:32 74 15 100 Mechanical Ventilator 40 03/01/19 19:22 70 19 100 Mechanical Ventilator 40 03/01/19 19:21 63 14 40 03/01/19 19:00 62 14 125/50 (75) 100 03/01/19 18:00 61 14 133/53 (79) 100 03/01/19 17:25 64 14 40 03/01/19 17:00 61 15 145/56 (85) 100 03/01/19 16:00 64 03/01/19 16:00 40 03/01/19 16:00 99.0 63 14 146/55 (85) 100 03/01/19 16:00 Mechanical Ventilator 03/01/19 15:15 67 18 40 03/01/19 15:00 70 21 133/64 (87) 100 03/01/19 14:00 65 23 141/54 (83) 100 03/01/19 13:16 63 14 100 Mechanical Ventilator 40 03/01/19 13:08 63 17 40 03/01/19 13:00 34 14 100 Mechanical Ventilator 40 03/01/19 13:00 63 17 124/50 (74) 100 03/01/19 12:15 40 03/01/19 12:08 100 03/01/19 12:00 67 03/01/19 12:00 98.6 70 23 132/52 (78) 100 03/01/19 12:00 Mechanical Ventilator Height (Feet): 5 Height (Inches): 3.00 Weight (Pounds): 140 HEENT: other - orally intubated Respiratory/Chest: lungs clear, other - on ventilator Cardiovascular: normal rate, other - left arm AV graft aneurysmal Abdomen: soft, non tender, other - GT feeding Extremities: no edema Neurologic/Psychiatric: alert, disoriented Musculoskeletal: atrophy Laboratory Tests Test 03/02/19 04:00 White Blood Count 7.9 K/UL (4.8-10.8) Red Blood Count 2.43 M/UL (4.20-5.40) L Hemoglobin 7.7 G/DL (12.0-16.0) L Hematocrit 23.2 % (37.0-47.0) L Mean Corpuscular Volume 96 FL (80-99) Mean Corpuscular Hemoglobin 31.7 PG (27.0-31.0) H Mean Corpuscular Hemoglobin Concent 33.2 G/DL (32.0-36.0) Red Cell Distribution Width 16.9 % (11.6-14.8) H Platelet Count 193 K/UL (150-450) Mean Platelet Volume 5.4 FL (6.5-10.1) L Neutrophils (%) (Auto) % (45.0-75.0) Lymphocytes (%) (Auto) % (20.0-45.0) Monocytes (%) (Auto) % (1.0-10.0) Eosinophils (%) (Auto) % (0.0-3.0) Basophils (%) (Auto) % (0.0-2.0) Differential Total Cells Counted 100 Neutrophils % (Manual) 82 % (45-75) H Lymphocytes % (Manual) 8 % (20-45) L Monocytes % (Manual) 8 % (1-10) Eosinophils % (Manual) 2 % (0-3) Basophils % (Manual) 0 % (0-2) Band Neutrophils 0 % (0-8) Platelet Estimate Adequate Platelet Morphology Normal Hypochromasia 3+ Anisocytosis 1+ Spherocytes 1+ Sodium Level 138 MMOL/L (136-145) Potassium Level 2.6 MMOL/L (3.5-5.1) *L Chloride Level 100 MMOL/L (98-107) Carbon Dioxide Level 28 MMOL/L (21-32) Anion Gap 11 mmol/L (5-15) Blood Urea Nitrogen 57 mg/dL (7-18) H Creatinine 4.5 MG/DL (0.55-1.30) H Estimat Glomerular Filtration Rate mL/min (>60) Glucose Level 144 MG/DL (74-106) H Calcium Level 8.9 MG/DL (8.5-10.1) Current Medications Medications (Trade) Dose Ordered Sig/Konrad Route PRN Reason Start Time Stop Time Status Last Admin Dose Admin Acetaminophen (Tylenol) 650 mg Q4H PRN GT Mild Pain/Temp > 100.5 02/20/19 18:00 03/16/19 17:59 02/22/19 21:18 Acetylcysteine (Mucomyst) 100 mg TIDRT N 02/23/19 07:00 03/25/19 06:59 03/01/19 19:22 Albuterol/ Ipratropium (Albuterol/ Ipratropium) 3 ml Q6HRT N 02/28/19 01:30 03/05/19 01:29 03/02/19 01:09 Amlodipine Besylate (Norvasc) 10 mg DAILY GT 02/21/19 09:00 03/17/19 08:59 03/02/19 08:54 Dextrose (Dextrose 50%) 25 ml Q30M PRN IV Hypoglycemia 02/20/19 17:45 03/16/19 15:14 Dextrose (Dextrose 50%) 50 ml Q30M PRN IV Hypoglycemia 02/20/19 17:45 03/16/19 15:14 Epoetin Chau (Epoetin Chau(ESRD on dialysis)) 10,000 unit SAT-SAT-SAT SUBQ 02/25/19 21:00 03/27/19 20:59 02/27/19 20:45 Fluconazole/ Sodium Chloride 100 ml @ 100 mls/hr Q24H IV 02/27/19 12:00 03/06/19 11:59 03/01/19 12:28 Heparin Sodium (Porcine) (Heparin 5000 units/ml) 5,000 units EVERY 12 HOURS SUBQ 02/20/19 21:00 03/16/19 20:59 02/23/19 21:11 Heparin Sodium (Porcine) (Heparin Sod 1000 units/ml 10ml) 2,000 unit ONCE PRN IV HD 03/02/19 06:00 03/02/19 23:59 Insulin Aspart (NovoLOG) EVERY 6 HOURS SUBQ 02/20/19 18:00 03/16/19 16:29 03/02/19 05:47 Lansoprazole (Prevacid) 30 mg BID GT 03/01/19 09:00 03/31/19 08:59 03/02/19 08:54 Levothyroxine Sodium (Synthroid) 150 mcg DAILY@0630 GT 02/21/19 06:30 03/17/19 06:29 03/02/19 05:47 Lorazepam (Ativan 2mg/ml 1ml) 1 mg Q3H PRN IV For Anxiety/Agitation 02/26/19 16:45 03/05/19 16:44 03/02/19 01:59 Metoclopramide HCl (Reglan) 5 mg Q6H PRN IVP Nausea & Vomiting 02/20/19 18:00 03/20/19 17:59 Minoxidil (Loniten) 2.5 mg DAILY GT 03/01/19 09:00 03/31/19 08:59 03/02/19 08:54 Ondansetron HCl (Zofran) 4 mg Q6H PRN IVP Nausea & Vomiting 02/20/19 18:00 03/19/19 17:59 Piperacillin Sod/ Tazobactam Sod 2.25 gm/Dextrose 55 ml @ 110 mls/hr Q8HR IVPB 02/26/19 22:00 03/07/19 21:59 03/02/19 05:47 Sodium Chloride 1,000 ml @ 500 mls/hr Q2H PRN IVLG sbp<90 during hd 03/02/19 06:00 03/02/19 23:59 Sucralfate (Carafate) 1 gm Q6HR GT 02/25/19 12:00 03/27/19 11:59 03/02/19 05:47 Kaden Aguilar MD Mar 02, 2019 11:38
--- NOTE | 2019-03-02 12:07 | NUR ---
NURSE NOTES: Seen by Dr Vasquez, will follow up with new order.Turned and repositioned.Mouth care done, HOb elevated to prevent aspiration
--- NOTE | 2019-03-02 14:06 | NUR ---
NURSE NOTES: Turned and repositioned.HOB elevated at 35 degree.Kept on close monitoring
--- NOTE | 2019-03-02 16:05 | NUR ---
NURSE NOTES: Turned and repositioned, mouth care done,suctioned as tolerated.Kept clean dry and comfortable.HOB elevated at 35 degree to prevent aspiration.
--- NOTE | 2019-03-02 18:21 | NUR ---
NURSE NOTES: ADLs done,turned and repositioned.Mouth care performed,HOB elevated to prevent aspiration.Kept clean dry and comfortable.
--- NOTE | 2019-03-02 19:32 | NUR ---
RESPIRATORY NOTE: Received pt on AC 14, 400VT, 40%, PEEP +5. Pt intubated w/ ETT 7.5 @ 23cm lipline, secured w/ anchorfast. Pt awake, responds to stimuli. Bite block in place. Both hands on soft-restraints to prevent from self-extubation.B/S deep. rhonchi, sxn moderate amounts of thick, frothy, pale-yellow secretions. Vent plugged into red outlet, ambubag at bedside. Pt in no apparent distress at this time. Will continue to monitor pt.
--- NOTE | 2019-03-02 19:34 | NUR ---
HAND-OFF: Report given to WILIAM Murphy.
--- NOTE | 2019-03-02 19:40 | NUR ---
NURSE NOTES: Patient report received from WILIAM Dawn. Pt's resting in bed in no acute distress. VS stable. Awake with ETT 7.5/25 lip line AC 14 Vt 400 FiO2 40% Peep 5. GT placement checked and in place.Residual check and flushed as tolerated. Running Nepro at 40ml/hr. Abdomen soft and non distended.Mouth care done,large amount thin clean secretion, suctioned as tolerated, kept clean and dry. Rectal tube in place draining black liquid stool. Call light within reach. HOB kept elevated. Will continue to monitor.
[2019-03-02] MEDS: Epoetin Alfa-EPBX(ESRD on dialysis)10,000 unit/ml vial SUBQ SCH (21:24)
--- NOTE | 2019-03-02 22:00 | NUR ---
NURSE NOTES: Pt's resting in bed, in no acute distress. VS stable. Asleep with eyes closed. Will continue to monitor.
[2019-03-03] VITALS (24 sets, daily range): BP systolic 91–160; BP diastolic 40–77
--- NOTE | 2019-03-03 | NUR ---
NURSE NOTES: Pt's resting in bed, in no acute distress. VS stable. Asleep with eyes closed. Will continue to monitor.
[2019-03-03] MEDS: Sucralfate 1gm tab GT SCH ×4 (00:21→17:26)
[2019-03-03] MEDS: NovoLOG Insulin Flexpen SUBQ SCH ×4 (00:25→17:26)
[2019-03-03] MEDS: Albuterol/Ipratropium 3ml neb HHN SCH ×4 (01:31→19:53)
--- NOTE | 2019-03-03 02:00 | NUR ---
NURSE NOTES: Pt's resting in bed, in no acute distress. VS stable. Asleep with eyes closed. Will continue to monitor.
[2019-03-03] MEDS ORDERED: HydrALAZINE 25mg tab GT PRN (02:45)
--- NOTE | 2019-03-03 03:15 | Progress Note ---
DATE: 03/02/2019 CARDIOLOGY PROGRESS NOTE SUBJECTIVE: The patient remains on ventilator support with ongoing weaning efforts. Oxygen is being titrated. She continues on hemodialysis with ultrafiltration. OBJECTIVE: VITAL SIGNS: Blood pressure 141/45, heart rate 62, respiratory rate 14. LUNGS: Bilateral breath sounds. Few rhonchi. HEART: Regular rhythm and rate. Normal S1, S2 with no murmur. ABDOMEN: Soft. EXTREMITIES: There is no edema. LABORATORY DATA: White count 7.9 and hemoglobin 7.7. Potassium 2.6 repeated following replacement is 4.3. IMPRESSION: 1. Respiratory failure. 2. Resolving healthcare acquired pneumonia. 3. Acute on chronic diastolic congestive heart failure. 4. Pleural effusions. 5. End-stage renal disease. 6. Sinus node disease. PLAN: 1. Antimicrobials. 2. Ventilator support with wean. 3. Titration of antihypertensives. 4. Fluid removal with ultrafiltration. 5. DVT and stress ulcer prophylaxis. Wilmer Hoyos M.D. DR: ESSIE JOB#: [id number] CC:
--- NOTE | 2019-03-03 04:00 | NUR ---
NURSE NOTES: Pt's resting in bed, in no acute distress. VS stable. Asleep with eyes closed. Will continue to monitor.
[2019-03-03 05:14] LABS: BASOPHILS % (AUTO) 1.2 % (0.0-2.0); EOSINOPHILS % (AUTO) 5.2 % (0.0-3.0); HEMATOCRIT 24.6 % (37.0-47.0); HEMOGLOBIN 8.1 G/DL (12.0-16.0); LYMPHOCYTES % (AUTO) 9.5 % (20.0-45.0); MEAN CORPUSCULAR VOLUME 97 FL (80-99); MONOCYTES % (AUTO) 7.9 % (1.0-10.0); NEUTROPHILS % (AUTO) 76.2 % (45.0-75.0); PLATELET COUNT 223 K/UL (150-450); RED BLOOD COUNT 2.54 M/UL (4.20-5.40); RED CELL DISTRIBUTION WIDTH 17.3 % (11.6-14.8); WHITE BLOOD COUNT 7.2 K/UL (4.8-10.8)
[2019-03-03 05:28] LABS: ANION GAP 9 mmol/L (5-15); BLOOD UREA NITROGEN 39 mg/dL (7-18); CALCIUM 9.1 MG/DL (8.5-10.1); CARBON DIOXIDE 30 MMOL/L (21-32); CHLORIDE 98 MMOL/L (98-107); CREATININE 3.3 MG/DL (0.55-1.30); POTASSIUM 3.5 MMOL/L (3.5-5.1); SODIUM 137 MMOL/L (136-145)
--- NOTE | 2019-03-03 06:00 | NUR ---
NURSE NOTES: Pt's resting in bed, in no distress, asleep with eyes closed. VS stable. Will continue to monitor.
[2019-03-03] MEDS: Piperacillin/Tazobactam 2.25 GM in D5W 55 ML IVPB SCH ×3 (06:11→21:41)
--- NOTE | 2019-03-03 07:30 | NUR ---
HAND-OFF: Report given to WILIAM Suazo.
--- NOTE | 2019-03-03 07:31 | NUR ---
NURSE NOTES: Received change of shift report from Jeffrey RN. Pt is awake, alert, orally intubated, opens eyes, however does not follow with eyes or follow commands. ETT 7.5 at 25cm right lipline, with vent settings AC14, VT400, Peep 5.0, FIO2 40% with O2sat at 100%, with diminished lung sounds and right upper lobe rhonchi. sport shoe spike assembler displays SR, with heart rate in the 80's and BP currently 150/80. Bounding redial pulses and weak peripheral pulses with no edema noted on extremities. Peripheral IV access present on right wrist and FA both #20G, saline lock, patent/intact. Pt also has left upper arm AV shunt for dialysis with positive bruit. GT in place with feeding Nepro 1.8 at 40ml/hour at goal. Pt is tolerating feeding well with no residual or s/s of vomiting noted. Rectal tube in place draining dark brown liquid stool. Per bi tester nurse, total output during previous shift was 150mL. Pt has bilateral soft wrist restraints, with skin integrity at restraint site within normal limits. Pt attempts to reach for the vent tubing despite reorientation and distraction. Pt is on P200 mattress. Bed is locked with three side rails up and call light within reach. Will continue to monitor pt and follow plan of care per MD orders and protocol.
--- NOTE | 2019-03-03 07:49 | NUR ---
NURSE NOTES:WOUND CARE NOTES CORRECTED:Pt noted to have non-blanchable erythema with with shearing sacrum and bilat gluteal clefts. Erythema with without induration but with multiple small partial thickness wounds that are pink at bases noted to sacral area ,R and L buttocks. No exudate noted from wounds. R heel is fluctuant .Non-blanchable erythema with small area (L)1cm x (W)1cm centrally that is maroon. Pt did not exhibit any distress when heel palpated. Non-blanchable erythema L heel without induration or fluctuance. Dry black lesion noted to L nostril . Tx.Plan: Apply Moisture Barrier Paste to sacrum/ buttocks with each perineal care. Cover sacrum with Optifoam drsg. Change every 3 days and prn. Apply Cavilon Skin Barrier to both heels. Cover each heel with Optifoam drsg. Change every 7 days and prn. Off-load heels with pillow. Reposition at least every 2hours or as tolerated. APM/JEREMY mattress overlay.
[2019-03-03] MEDS: Heparin 5000 units/ml inj SUBQ SCH ×2 (09:00→21:41)
--- NOTE | 2019-03-03 09:43 | NUR ---
SENIOR PROGRAM MANAGERCHEMICAL COMPOUNDER HELPER SI:RESPIRATORY FAILURE . PLEURAL EFFUSIONS VS: BP 153/60, P 74, T 97.7, RR 17, SpO2 94 on VENT FiO2 40 RBC 2.54, H&H 8.1/24.6, BUN 39, Cr 3.3 IS:PREVACID 30mg MUCOMYST 100mg HHN ALBUTEROL 3ml HHN SYNTHROID 150mcg NOVOLOG SUBQ ZOSYN 55ml IVPB FLUCONAZOLE 100ml IV WEANING ABLE ICU STATUS
[2019-03-03] MEDS: Minoxidil 2.5mg tab GT SCH (10:00)
--- NOTE | 2019-03-03 10:00 | NUR ---
NURSE NOTES: Oral care done and pt suctioned, with small output of clear sputum/secretion. VS stable. Pt was repositioned with bilateral extremities elevated on pillows. Tolerating GT feeding well with no residual. Pt is anuric. Rectal tube in place with small output of liquid tarry stool.
--- NOTE | 2019-03-03 11:55 | Infectious Diseases Prog Note ---
Assessment/Plan Assessment/Plan A; 1. Possible pneumonia that is improving. 2. Pleural effusions. 3. Congestive heart failure. 4. Renal failure, on dialysis. 5. Sick sinus syndrome. 6. Necrotizing esophagitis. 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 Acute respiratory failure PLAN: 1. Continue Zosyn & fluconazole Subjective ROS Limited/Unobtainable: Yes Gastrointestinal/Abdominal: Reports: blood in stool Neurologic: Reports: confusion, other - on restraint Allergies: Coded Allergies: No Known Allergies (Unverified , 05/11/18) Objective Vital Signs Last 24 Hour Vital Signs Date Time Temp Pulse Resp B/P (MAP) Pulse Ox O2 Delivery O2 Flow Rate FiO2 03/03/19 11:00 74 18 40 03/03/19 10:00 131/62 03/03/19 10:00 63 15 125/59 (81) 94 03/03/19 09:55 70 153/60 03/03/19 09:00 96 03/03/19 09:00 97.7 68 17 153/60 (91) 97 03/03/19 08:54 70 18 40 03/03/19 08:00 40 03/03/19 08:00 Mechanical Ventilator 03/03/19 08:00 68 17 131/62 (85) 92 03/03/19 07:20 64 14 40 03/03/19 07:15 77 14 100 Mechanical Ventilator 40 03/03/19 07:00 65 16 154/62 (92) 100 03/03/19 07:00 63 15 100 Mechanical Ventilator 40 03/03/19 06:00 64 03/03/19 06:00 65 16 131/56 (81) 100 03/03/19 05:05 74 15 40 03/03/19 05:00 66 15 142/69 (93) 100 03/03/19 04:00 66 15 131/59 (83) 100 03/03/19 04:00 70 03/03/19 04:00 40 03/03/19 04:00 Mechanical Ventilator 03/03/19 03:16 76 24 40 03/03/19 03:00 64 14 120/56 (77) 100 03/03/19 02:00 76 19 137/70 (92) 100 03/03/19 01:41 80 18 100 Mechanical Ventilator 40 03/03/19 01:31 74 17 100 Mechanical Ventilator 40 03/03/19 01:30 74 17 40 03/03/19 01:00 69 19 130/61 (84) 95 03/03/19 00:00 Mechanical Ventilator 03/03/19 00:00 79 03/03/19 00:00 40 03/03/19 00:00 67 19 130/70 (90) 100 03/02/19 23:45 66 14 40 03/02/19 23:00 67 19 133/60 (84) 100 03/02/19 22:00 67 19 129/59 (82) 100 03/02/19 21:25 64 16 40 03/02/19 21:00 67 19 122/97 (105) 100 03/02/19 20:00 66 03/02/19 20:00 40 03/02/19 20:00 98.7 67 19 135/60 (85) 100 03/02/19 20:00 Mechanical Ventilator 03/02/19 19:45 68 17 100 Mechanical Ventilator 40 03/02/19 19:30 73 20 100 Mechanical Ventilator 40 03/02/19 19:30 73 20 40 03/02/19 19:00 67 19 146/75 (98) 100 03/02/19 18:00 66 19 137/61 (86) 100 03/02/19 17:00 67 19 138/66 (90) 100 03/02/19 16:45 66 17 40 03/02/19 16:00 98.0 68 20 143/76 (98) 100 03/02/19 16:00 Mechanical Ventilator 03/02/19 16:00 40 03/02/19 16:00 67 03/02/19 15:19 67 14 40 03/02/19 15:00 68 19 138/74 (95) 100 03/02/19 14:00 68 19 139/62 (87) 100 03/02/19 13:00 69 19 137/66 (89) 100 03/02/19 12:59 76 16 100 Mechanical Ventilator 40 03/02/19 12:49 64 15 100 Mechanical Ventilator 40 03/02/19 12:48 64 15 40 03/02/19 12:00 98.2 69 20 136/70 (92) 100 03/02/19 12:00 40 03/02/19 12:00 71 03/02/19 12:00 Mechanical Ventilator Height (Feet): 5 Height (Inches): 3.00 Weight (Pounds): 140 General Appearance: no acute distress HEENT: mucous membranes moist, other - orally intubated Respiratory/Chest: lungs clear, other - on ventilator Cardiovascular: normal rate Abdomen: soft, non tender, other - rectal tube & GT Extremities: no edema Skin: other - nasal skin lesions Neurologic/Psychiatric: alert, disoriented Laboratory Tests Test 03/02/19 15:50 03/03/19 04:11 Potassium Level 4.3 MMOL/L (3.5-5.1) # 3.5 MMOL/L (3.5-5.1) White Blood Count 7.2 K/UL (4.8-10.8) Red Blood Count 2.54 M/UL (4.20-5.40) L Hemoglobin 8.1 G/DL (12.0-16.0) L Hematocrit 24.6 % (37.0-47.0) L Mean Corpuscular Volume 97 FL (80-99) Mean Corpuscular Hemoglobin 32.1 PG (27.0-31.0) H Mean Corpuscular Hemoglobin Concent 33.1 G/DL (32.0-36.0) Red Cell Distribution Width 17.3 % (11.6-14.8) H Platelet Count 223 K/UL (150-450) Mean Platelet Volume 5.5 FL (6.5-10.1) L Neutrophils (%) (Auto) 76.2 % (45.0-75.0) H Lymphocytes (%) (Auto) 9.5 % (20.0-45.0) L Monocytes (%) (Auto) 7.9 % (1.0-10.0) Eosinophils (%) (Auto) 5.2 % (0.0-3.0) H Basophils (%) (Auto) 1.2 % (0.0-2.0) Sodium Level 137 MMOL/L (136-145) Chloride Level 98 MMOL/L (98-107) Carbon Dioxide Level 30 MMOL/L (21-32) Anion Gap 9 mmol/L (5-15) Blood Urea Nitrogen 39 mg/dL (7-18) H Creatinine 3.3 MG/DL (0.55-1.30) H Estimat Glomerular Filtration Rate mL/min (>60) Glucose Level 135 MG/DL (74-106) H Calcium Level 9.1 MG/DL (8.5-10.1) Current Medications Medications (Trade) Dose Ordered Sig/K[place]rad Route PRN Reason Start Time Stop Time Status Last Admin Dose Admin Acetaminophen (Tylenol) 650 mg Q4H PRN GT Mild Pain/Temp > 100.5 02/20/19 18:00 03/16/19 17:59 02/22/19 21:18 Acetylcysteine (Mucomyst) 100 mg TIDRT HHN 02/23/19 07:00 03/25/19 06:59 03/03/19 07:55 Albuterol/ Ipratropium (Albuterol/ Ipratropium) 3 ml Q6HRT HHN 02/28/19 01:30 03/05/19 01:29 03/03/19 07:55 Amlodipine Besylate (Norvasc) 10 mg DAILY GT 02/21/19 09:00 03/17/19 08:59 03/03/19 09:55 Dextrose (Dextrose 50%) 25 ml Q30M PRN IV Hypoglycemia 02/20/19 17:45 03/16/19 15:14 Dextrose (Dextrose 50%) 50 ml Q30M PRN IV Hypoglycemia 02/20/19 17:45 03/16/19 15:14 Epoetin Chau (Epoetin Chau(ESRD on dialysis)) 10,000 unit SAT-SAT-SAT SUBQ 02/25/19 21:00 03/27/19 20:59 03/02/19 21:24 Fluconazole/ Sodium Chloride 100 ml @ 100 mls/hr Q24H IV 02/27/19 12:00 03/06/19 11:59 03/02/19 12:08 Heparin Sodium (Porcine) (Heparin 5000 units/ml) 5,000 units EVERY 12 HOURS SUBQ 02/20/19 21:00 03/16/19 20:59 02/23/19 21:11 Hydralazine HCl (Apresoline) 25 mg Q6HR PRN GT Sbp above 150 03/03/19 02:45 04/02/19 02:44 Insulin Aspart (NovoLOG) EVERY 6 HOURS SUBQ 02/20/19 18:00 03/16/19 16:29 03/03/19 06:05 Lansoprazole (Prevacid) 30 mg BID GT 03/01/19 09:00 03/31/19 08:59 03/03/19 10:00 Levothyroxine Sodium (Synthroid) 150 mcg DAILY@0630 GT 02/21/19 06:30 03/17/19 06:29 03/03/19 06:04 Lorazepam (Ativan 2mg/ml 1ml) 1 mg Q3H PRN IV For Anxiety/Agitation 02/26/19 16:45 03/05/19 16:44 03/02/19 01:59 Metoclopramide HCl (Reglan) 5 mg Q6H PRN IVP Nausea & Vomiting 02/20/19 18:00 03/20/19 17:59 Minoxidil (Loniten) 2.5 mg DAILY GT 03/01/19 09:00 03/31/19 08:59 03/03/19 10:00 Ondansetron HCl (Zofran) 4 mg Q6H PRN IVP Nausea & Vomiting 02/20/19 18:00 03/19/19 17:59 Piperacillin Sod/ Tazobactam Sod 2.25 gm/Dextrose 55 ml @ 110 mls/hr Q8HR IVPB 02/26/19 22:00 03/07/19 21:59 03/03/19 06:11 Sucralfate (Carafate) 1 gm Q6HR GT 02/25/19 12:00 03/27/19 11:59 03/03/19 06:04 Kaden Aguilar MD Mar 03, 2019 11:55
--- NOTE | 2019-03-03 12:30 | NUR ---
NURSE NOTES: Pt is resting with head of bed at 30degress. instructor industrial design displays NSR with heart rate fluctuating in the 80's. Vent settings maintained at AC14, TV400, Peep 5.0, FIO2 40% with O2sat at 100%. Per RT pt failing weaning trial. GT flushed with water; pt is tolerating Nepro at 40ml/hour at goal with no residual. Blood ztiolzp=332, covered with sliding scale 3units of Novolog insulin. Pt was repositioned, bilateral extremities elevated on pillows. Oral care done.
--- NOTE | 2019-03-03 12:34 | GI Progress Note ---
Assessment/Plan Problems: (1) Anemia ICD Codes: D64.9 - Anemia, unspecified SNOMED: 776554239 (2) Respiratory failure ICD Codes: J96.90 - Respiratory failure, unspecified, unspecified whether with hypoxia or hypercapnia SNOMED: 074159764 Qualifiers: Qualified Codes: J96.01 - Acute respiratory failure with hypoxia; J96.02 - Acute respiratory failure with hypercapnia (3) End stage renal disease on dialysis ICD Codes: N18.6 - End stage renal disease; Z99.2 - Dependence on renal dialysis SNOMED: 326508982 Status: unchanged Status Narrative Discussed with Dr. Taylor. Assessment/Plan s/p EGD SUMMARY OF FINDINGS: Evidence of significant esophageal possibly necrosis in the distal esophagus most probably the source of bleeding, which we could not do anything endoscopically to control it. stable H&H, no recurrent bleed reported rectal tube in place PLAN: GTF strict aspiration precautions, elevate the head of the bed at all times. prevacid 30 mg BID Monitor hemoglobin and hematocrit every 8 hours and transfuse to keep hemoglobin above 8. Carafate 1 g every 6 hours. repeat endoscopy if patient has recurrent bleed The patient was seen and examined at bedside and all new and available data was reviewed in the patients chart. I agree with the above findings, impression and plan. (Patient seen earlier today. Signature stamp does not reflect patient encounter time.). - Hilton Taylor MD Subjective Subjective Limited Objective Last 24 Hour Vital Signs Date Time Temp Pulse Resp B/P (MAP) Pulse Ox O2 Delivery O2 Flow Rate FiO2 03/03/19 12:00 Mechanical Ventilator 03/03/19 12:00 40 03/03/19 12:00 97.9 70 17 134/62 (86) 97 03/03/19 11:00 65 17 135/59 (84) 98 03/03/19 11:00 74 18 40 03/03/19 10:00 131/62 03/03/19 10:00 63 15 125/59 (81) 94 03/03/19 09:55 70 153/60 03/03/19 09:00 96 03/03/19 09:00 97.7 68 17 153/60 (91) 97 03/03/19 08:54 70 18 40 03/03/19 08:00 40 03/03/19 08:00 Mechanical Ventilator 03/03/19 08:00 68 17 131/62 (85) 92 03/03/19 07:20 64 14 40 03/03/19 07:15 77 14 100 Mechanical Ventilator 40 03/03/19 07:00 65 16 154/62 (92) 100 03/03/19 07:00 63 15 100 Mechanical Ventilator 40 03/03/19 06:00 64 03/03/19 06:00 65 16 131/56 (81) 100 03/03/19 05:05 74 15 40 03/03/19 05:00 66 15 142/69 (93) 100 03/03/19 04:00 66 15 131/59 (83) 100 03/03/19 04:00 70 03/03/19 04:00 40 03/03/19 04:00 Mechanical Ventilator 03/03/19 03:16 76 24 40 03/03/19 03:00 64 14 120/56 (77) 100 03/03/19 02:00 76 19 137/70 (92) 100 03/03/19 01:41 80 18 100 Mechanical Ventilator 40 03/03/19 01:31 74 17 100 Mechanical Ventilator 40 03/03/19 01:30 74 17 40 03/03/19 01:00 69 19 130/61 (84) 95 03/03/19 00:00 Mechanical Ventilator 03/03/19 00:00 79 03/03/19 00:00 40 03/03/19 00:00 67 19 130/70 (90) 100 03/02/19 23:45 66 14 40 03/02/19 23:00 67 19 133/60 (84) 100 03/02/19 22:00 67 19 129/59 (82) 100 03/02/19 21:25 64 16 40 03/02/19 21:00 67 19 122/97 (105) 100 03/02/19 20:00 66 03/02/19 20:00 40 03/02/19 20:00 98.7 67 19 135/60 (85) 100 03/02/19 20:00 Mechanical Ventilator 03/02/19 19:45 68 17 100 Mechanical Ventilator 40 03/02/19 19:30 73 20 100 Mechanical Ventilator 40 03/02/19 19:30 73 20 40 03/02/19 19:00 67 19 146/75 (98) 100 03/02/19 18:00 66 19 137/61 (86) 100 03/02/19 17:00 67 19 138/66 (90) 100 03/02/19 16:45 66 17 40 03/02/19 16:00 98.0 68 20 143/76 (98) 100 03/02/19 16:00 Mechanical Ventilator 03/02/19 16:00 40 03/02/19 16:00 67 03/02/19 15:19 67 14 40 03/02/19 15:00 68 19 138/74 (95) 100 03/02/19 14:00 68 19 139/62 (87) 100 03/02/19 13:00 69 19 137/66 (89) 100 03/02/19 12:59 76 16 100 Mechanical Ventilator 40 03/02/19 12:49 64 15 100 Mechanical Ventilator 40 03/02/19 12:48 64 15 40 Intake and Output 03/02/19 03/03/19 18:59 06:59 Intake Total 795 ml 785 ml Output Total 2600 ml Balance -1805 ml 785 ml Intake Free Water 200 ml 250 ml IV Total 155 ml 55 ml Tube Feeding 440 ml 480 ml Stool Total 100 ml Hemodialysis UF 2500 ml Laboratory Tests Test 03/02/19 15:50 03/03/19 04:11 Potassium Level 4.3 MMOL/L (3.5-5.1) # 3.5 MMOL/L (3.5-5.1) White Blood Count 7.2 K/UL (4.8-10.8) Red Blood Count 2.54 M/UL (4.20-5.40) L Hemoglobin 8.1 G/DL (12.0-16.0) L Hematocrit 24.6 % (37.0-47.0) L Mean Corpuscular Volume 97 FL (80-99) Mean Corpuscular Hemoglobin 32.1 PG (27.0-31.0) H Mean Corpuscular Hemoglobin Concent 33.1 G/DL (32.0-36.0) Red Cell Distribution Width 17.3 % (11.6-14.8) H Platelet Count 223 K/UL (150-450) Mean Platelet Volume 5.5 FL (6.5-10.1) L Neutrophils (%) (Auto) 76.2 % (45.0-75.0) H Lymphocytes (%) (Auto) 9.5 % (20.0-45.0) L Monocytes (%) (Auto) 7.9 % (1.0-10.0) Eosinophils (%) (Auto) 5.2 % (0.0-3.0) H Basophils (%) (Auto) 1.2 % (0.0-2.0) Sodium Level 137 MMOL/L (136-145) Chloride Level 98 MMOL/L (98-107) Carbon Dioxide Level 30 MMOL/L (21-32) Anion Gap 9 mmol/L (5-15) Blood Urea Nitrogen 39 mg/dL (7-18) H Creatinine 3.3 MG/DL (0.55-1.30) H Estimat Glomerular Filtration Rate mL/min (>60) Glucose Level 135 MG/DL (74-106) H Calcium Level 9.1 MG/DL (8.5-10.1) Height (Feet): 5 Height (Inches): 3.00 Weight (Pounds): 140 General Appearance: no apparent distress Cardiovascular: normal rate Respiratory/Chest: normal breath sounds, no respiratory distress, other - intubated Abdominal Exam: normal bowel sounds, non tender, soft, GT site - c/d/i Extremities: non-tender Janene Ellis NP Mar 03, 2019 12:34
--- NOTE | 2019-03-03 14:12 | Nephrology Progress Note ---
Assessment/Plan Plan Respiratory Failure due to CHF + Pneumonia, m/p due to aspiration. On vent. CHF --- HD+UF MWF Pneumonia - IV Abx. Weaning trials ongoing. Subjective Subjective In ICU. Still on vent. Objective Objective Last 24 Hour Vital Signs Date Time Temp Pulse Resp B/P (MAP) Pulse Ox O2 Delivery O2 Flow Rate FiO2 03/03/19 13:10 72 15 100 Mechanical Ventilator 40 03/03/19 13:00 69 15 40 03/03/19 13:00 67 16 139/66 (90) 98 03/03/19 13:00 67 15 100 Mechanical Ventilator 40 03/03/19 12:00 Mechanical Ventilator 03/03/19 12:00 40 03/03/19 12:00 97.9 70 17 134/62 (86) 97 03/03/19 11:00 65 17 135/59 (84) 98 03/03/19 11:00 74 18 40 03/03/19 10:00 131/62 03/03/19 10:00 63 15 125/59 (81) 94 03/03/19 09:55 70 153/60 03/03/19 09:00 96 03/03/19 09:00 97.7 68 17 153/60 (91) 97 03/03/19 08:54 70 18 40 03/03/19 08:00 40 03/03/19 08:00 Mechanical Ventilator 03/03/19 08:00 68 17 131/62 (85) 92 03/03/19 07:20 64 14 40 03/03/19 07:15 77 14 100 Mechanical Ventilator 40 03/03/19 07:00 65 16 154/62 (92) 100 03/03/19 07:00 63 15 100 Mechanical Ventilator 40 03/03/19 06:00 64 03/03/19 06:00 65 16 131/56 (81) 100 03/03/19 05:05 74 15 40 03/03/19 05:00 66 15 142/69 (93) 100 03/03/19 04:00 66 15 131/59 (83) 100 03/03/19 04:00 70 03/03/19 04:00 40 03/03/19 04:00 Mechanical Ventilator 03/03/19 03:16 76 24 40 03/03/19 03:00 64 14 120/56 (77) 100 03/03/19 02:00 76 19 137/70 (92) 100 03/03/19 01:41 80 18 100 Mechanical Ventilator 40 03/03/19 01:31 74 17 100 Mechanical Ventilator 40 03/03/19 01:30 74 17 40 03/03/19 01:00 69 19 130/61 (84) 95 03/03/19 00:00 Mechanical Ventilator 03/03/19 00:00 79 03/03/19 00:00 40 03/03/19 00:00 67 19 130/70 (90) 100 03/02/19 23:45 66 14 40 03/02/19 23:00 67 19 133/60 (84) 100 03/02/19 22:00 67 19 129/59 (82) 100 03/02/19 21:25 64 16 40 03/02/19 21:00 67 19 122/97 (105) 100 03/02/19 20:00 66 03/02/19 20:00 40 03/02/19 20:00 98.7 67 19 135/60 (85) 100 03/02/19 20:00 Mechanical Ventilator 03/02/19 19:45 68 17 100 Mechanical Ventilator 40 03/02/19 19:30 73 20 100 Mechanical Ventilator 40 03/02/19 19:30 73 20 40 03/02/19 19:00 67 19 146/75 (98) 100 03/02/19 18:00 66 19 137/61 (86) 100 03/02/19 17:00 67 19 138/66 (90) 100 03/02/19 16:45 66 17 40 03/02/19 16:00 98.0 68 20 143/76 (98) 100 03/02/19 16:00 Mechanical Ventilator 03/02/19 16:00 40 03/02/19 16:00 67 03/02/19 15:19 67 14 40 03/02/19 15:00 68 19 138/74 (95) 100 Intake and Output 03/02/19 03/03/19 18:59 06:59 Intake Total 795 ml 785 ml Output Total 2600 ml Balance -1805 ml 785 ml Intake Free Water 200 ml 250 ml IV Total 155 ml 55 ml Tube Feeding 440 ml 480 ml Stool Total 100 ml Hemodialysis UF 2500 ml Laboratory Tests 03/02/19 15:50: Potassium Level 4.3# 03/03/19 04:11: Potassium Level 3.5, White Blood Count 7.2, Red Blood Count 2.54L, Hemoglobin 8.1L, Hematocrit 24.6L, Mean Corpuscular Volume 97, Mean Corpuscular Hemoglobin 32.1H, Mean Corpuscular Hemoglobin Concent 33.1, Red Cell Distribution Width 17.3H, Platelet Count 223, Mean Platelet Volume 5.5L, Neutrophils (%) (Auto) 76.2H, Lymphocytes (%) (Auto) 9.5L, Monocytes (%) (Auto) 7.9, Eosinophils (%) ( Auto) 5.2H, Basophils (%) (Auto) 1.2, Sodium Level 137, Chloride Level 98, Carbon Dioxide Level 30, Anion Gap 9, Blood Urea Nitrogen 39H, Creatinine 3.3H, Estimat Glomerular Filtration Rate , Glucose Level 135H, Calcium Level 9.1 Height (Feet): 5 Height (Inches): 3.00 Weight (Pounds): 140 Objective Intubated, on vent. CV RR Lungs B ronchi + wheezes. Abd SNT. BS + E No CCE Raul Cannon MD Mar 03, 2019 14:12
[2019-03-03] MEDS ORDERED: Heparin Sod 1000 units/ml 10ml IV PRN (14:15)
--- NOTE | 2019-03-03 14:30 | NUR ---
NURSE NOTES: Pt was seen by Dr Cannon. Order in place for bedside hemodialysis treatment for tomorrow 03/04/19 by [facility]. [facility] was contacted and informed regarding this order. Spoke with Lisa at [facility]. Dr Cannon informed regarding holding SQ Heparin this morning due to active GI bleed. Order received for Venous Duplex of lower extremities. If result is negative, then can order SCDs for DVT prophylaxis. Order will be processed and followed.
--- NOTE | 2019-03-03 14:42 | NUR ---
NURSE NOTES:WOUND CARE NOTES:Pt presented on admission with non-blanchable erythema with two partial thickness pressure injuries with shearing sacrum and clefts of R and L buttocks. Base of sacral wound moist and viable (L)3cm x (W)4cm. Non-blanchable erythema with additional shearing periwound. Partial thickness pressure injury L buttocks . Base of wound moist -viable. Edges of wound flat and adherent to base .Non-blanchable erythema with additional shearing periwound. R and L heels are soft but blanchable. Recommendations:Apply Moisture Barrier Paste to Sacrum,R and L buttocks with each perineal care. Cover sacrum with Optifoam drsg. Change every 3 days and prn. Apply Cavilon Skin BArrier to R and L heels. Cover each heel with Optifoam drsg. Change every 7 days and prn. Reposition at least every 2hours or as tolerated. Off-load heels with pillow. Addendum: 03/03/19 at 1519 by Phyllis Winston LVN Addendum to above notes: Pt noted to have dry necrotic lesion to L nostril . Addendum: 03/04/19 at 0741 by Phyllis Winston LVN ABOVE WOUND NOTES ENTERED IN ERROR
[2019-03-03] MEDS: Acetaminophen 650mg/20.3ml GT PRN (16:50)
--- NOTE | 2019-03-03 17:00 | NUR ---
NURSE NOTES: medical lab tech instructor at bedside for Venous Duplex of Bilat. lower extremities. Result is negative. Order in place for SCDs. Will order from central supply and apply to pt. VS stable. Pt was administered Tylenol for pain, per [facility] pt is restress with facial grimacing, when asked pt if she was having any pain, pt nodding "yes".
--- NOTE | 2019-03-03 17:27 | Pulmonology Progress Note ---
Assessment/Plan Assessment/Plan 1. acute respiratory failure 2. End-stage renal failure, on dialysis. 3. COPD. 4. Schizophrenia. 5. Pulmonary edema, due to overload 6. Anemia of chronic kidney disease. 7. Sick sinus syndrome. 8. diabetes mellitus. 9. protein calorie malnutrition 10. pulmonary infiltrates PLAN monitor as is vent noted and settings reviewed weaning - as able titrate oxygen as able HD with UF replace K keep negative as able monitor HH- recommend transfusion for improved oxygen delivery monitor for bleeding monitor fluid status and imaging continue supportive care and ICU management reviewed all and monitored nutrition and monitor protein levels follow up for change and recommend medications/laboratory data/nursing notes/ICU care reviewed in detail note reviewed and edited care discussed with RN and RT ICU time spent 45 minutes Subjective Allergies: Coded Allergies: No Known Allergies (Unverified , 05/11/18) Subjective care noted on oxygen and vent respiratory noted ICU care reviewed and discussed d/w primary, trying to wean low HH; low k Objective Last 24 Hour Vital Signs Date Time Temp Pulse Resp B/P (MAP) Pulse Ox O2 Delivery O2 Flow Rate FiO2 03/03/19 16:00 98.0 62 14 126/57 (80) 99 03/03/19 16:00 40 03/03/19 16:00 Mechanical Ventilator 03/03/19 15:00 78 18 40 03/03/19 15:00 67 18 133/62 (85) 95 03/03/19 14:00 68 18 139/69 (92) 99 03/03/19 13:10 72 15 100 Mechanical Ventilator 40 03/03/19 13:00 69 15 40 03/03/19 13:00 67 16 139/66 (90) 98 03/03/19 13:00 67 15 100 Mechanical Ventilator 40 03/03/19 12:00 Mechanical Ventilator 03/03/19 12:00 40 03/03/19 12:00 64 03/03/19 12:00 97.9 70 17 134/62 (86) 97 03/03/19 11:00 65 17 135/59 (84) 98 03/03/19 11:00 74 18 40 03/03/19 10:00 131/62 03/03/19 10:00 63 15 125/59 (81) 94 03/03/19 09:55 70 153/60 03/03/19 09:00 96 03/03/19 09:00 97.7 68 17 153/60 (91) 97 03/03/19 08:54 70 18 40 03/03/19 08:00 40 03/03/19 08:00 Mechanical Ventilator 03/03/19 08:00 68 17 131/62 (85) 92 03/03/19 07:20 64 14 40 03/03/19 07:15 77 14 100 Mechanical Ventilator 40 03/03/19 07:00 65 16 154/62 (92) 100 03/03/19 07:00 63 15 100 Mechanical Ventilator 40 03/03/19 06:00 64 03/03/19 06:00 65 16 131/56 (81) 100 03/03/19 05:05 74 15 40 03/03/19 05:00 66 15 142/69 (93) 100 03/03/19 04:00 66 15 131/59 (83) 100 03/03/19 04:00 70 03/03/19 04:00 40 03/03/19 04:00 Mechanical Ventilator 03/03/19 03:16 76 24 40 03/03/19 03:00 64 14 120/56 (77) 100 03/03/19 02:00 76 19 137/70 (92) 100 03/03/19 01:41 80 18 100 Mechanical Ventilator 40 03/03/19 01:31 74 17 100 Mechanical Ventilator 40 03/03/19 01:30 74 17 40 03/03/19 01:00 69 19 130/61 (84) 95 03/03/19 00:00 Mechanical Ventilator 03/03/19 00:00 79 03/03/19 00:00 40 03/03/19 00:00 67 19 130/70 (90) 100 03/02/19 23:45 66 14 40 03/02/19 23:00 67 19 133/60 (84) 100 03/02/19 22:00 67 19 129/59 (82) 100 03/02/19 21:25 64 16 40 03/02/19 21:00 67 19 122/97 (105) 100 03/02/19 20:00 66 03/02/19 20:00 40 03/02/19 20:00 98.7 67 19 135/60 (85) 100 03/02/19 20:00 Mechanical Ventilator 03/02/19 19:45 68 17 100 Mechanical Ventilator 40 03/02/19 19:30 73 20 100 Mechanical Ventilator 40 03/02/19 19:30 73 20 40 03/02/19 19:00 67 19 146/75 (98) 100 03/02/19 18:00 66 19 137/61 (86) 100 Intake and Output 03/02/19 03/03/19 18:59 06:59 Intake Total 795 ml 785 ml Output Total 2600 ml Balance -1805 ml 785 ml Intake Free Water 200 ml 250 ml IV Total 155 ml 55 ml Tube Feeding 440 ml 480 ml Stool Total 100 ml Hemodialysis UF 2500 ml Objective WDWN on vent ETT in place reduced breath sounds bilaterally without rhonchi or wheeze [id number] without MRG NABS nontender no HSM; no distention; feeding tube no CC mild edema nonfocal and sedated reviewed and edited Laboratory Tests 03/03/19 04:11: White Blood Count 7.2, Red Blood Count 2.54L, Hemoglobin 8.1L, Hematocrit 24.6L , Mean Corpuscular Volume 97, Mean Corpuscular Hemoglobin 32.1H, Mean Corpuscular Hemoglobin Concent 33.1, Red Cell Distribution Width 17.3H, Platelet Count 223, Mean Platelet Volume 5.5L, Neutrophils (%) (Auto) 76.2H, Lymphocytes (%) (Auto) 9.5L, Monocytes (%) (Auto) 7.9, Eosinophils (%) (Auto) 5.2H, Basophils (%) (Auto) 1.2, Sodium Level 137, Potassium Level 3.5, Chloride Level 98, Carbon Dioxide Level 30, Anion Gap 9, Blood Urea Nitrogen 39H, Creatinine 3.3H, Estimat Glomerular Filtration Rate , Glucose Level 135H, Calcium Level 9.1 Current Medications Medications (Trade) Dose Ordered Sig/Konrad Route PRN Reason Start Time Stop Time Status Last Admin Dose Admin Acetaminophen (Tylenol) 650 mg Q4H PRN GT Mild Pain/Temp > 100.5 02/20/19 18:00 03/16/19 17:59 03/03/19 16:50 Acetylcysteine (Mucomyst) 100 mg TIDRT N 02/23/19 07:00 03/25/19 06:59 03/03/19 13:20 Albuterol/ Ipratropium (Albuterol/ Ipratropium) 3 ml Q6HRT N 02/28/19 01:30 03/05/19 01:29 03/03/19 13:20 Amlodipine Besylate (Norvasc) 10 mg DAILY GT 02/21/19 09:00 03/17/19 08:59 03/03/19 09:55 Dextrose (Dextrose 50%) 25 ml Q30M PRN IV Hypoglycemia 02/20/19 17:45 03/16/19 15:14 Dextrose (Dextrose 50%) 50 ml Q30M PRN IV Hypoglycemia 02/20/19 17:45 03/16/19 15:14 Epoetin Chau (Epoetin Chau(ESRD on dialysis)) 10,000 unit SAT-SAT-SAT SUBQ 02/25/19 21:00 03/27/19 20:59 03/02/19 21:24 Fluconazole/ Sodium Chloride 100 ml @ 100 mls/hr Q24H IV 02/27/19 12:00 03/06/19 11:59 03/03/19 13:07 Heparin Sodium (Porcine) (Heparin 5000 units/ml) 5,000 units EVERY 12 HOURS SUBQ 02/20/19 21:00 03/16/19 20:59 02/23/19 21:11 Heparin Sodium (Porcine) (Heparin Sod 1000 units/ml 10ml) 2,000 unit ONCE PRN IV FOR HD USE ONLY 03/03/19 14:15 03/05/19 23:59 Hydralazine HCl (Apresoline) 25 mg Q6HR PRN GT Sbp above 150 03/03/19 02:45 04/02/19 02:44 Insulin Aspart (NovoLOG) EVERY 6 HOURS SUBQ 02/20/19 18:00 03/16/19 16:29 03/03/19 13:06 Lansoprazole (Prevacid) 30 mg BID GT 03/01/19 09:00 03/31/19 08:59 03/03/19 10:00 Levothyroxine Sodium (Synthroid) 150 mcg DAILY@0630 GT 02/21/19 06:30 03/17/19 06:29 03/03/19 06:04 Lorazepam (Ativan 2mg/ml 1ml) 1 mg Q3H PRN IV For Anxiety/Agitation 02/26/19 16:45 03/05/19 16:44 03/02/19 01:59 Metoclopramide HCl (Reglan) 5 mg Q6H PRN IVP Nausea & Vomiting 02/20/19 18:00 03/20/19 17:59 Minoxidil (Loniten) 2.5 mg DAILY GT 03/01/19 09:00 03/31/19 08:59 03/03/19 10:00 Ondansetron HCl (Zofran) 4 mg Q6H PRN IVP Nausea & Vomiting 02/20/19 18:00 03/19/19 17:59 Piperacillin Sod/ Tazobactam Sod 2.25 gm/Dextrose 55 ml @ 110 mls/hr Q8HR IVPB 02/26/19 22:00 03/07/19 21:59 03/03/19 14:31 Sodium Chloride 1,000 ml @ 500 mls/hr Q2H PRN IVLG sbp<90 during hd 03/03/19 14:12 03/05/19 23:59 Sucralfate (Carafate) 1 gm Q6HR GT 02/25/19 12:00 03/27/19 11:59 03/03/19 13:07 Jac Ramirez MD Mar 03, 2019 17:27
--- NOTE | 2019-03-03 18:00 | NUR ---
NURSE NOTES: Pt was cleaned and wound dressing changed. Oral care done and pt suctioned. Pt repositioned with bilateral extremities elevated on pillows. SCDs placed on bilateral lower extremities as ordered. VS stable.
--- NOTE | 2019-03-03 19:23 | NUR ---
HAND-OFF: Report given to Arline SWAIN. Endorsed plan of care.
--- NOTE | 2019-03-03 19:25 | NUR ---
NURSE NOTES: Report received from Benny SWAIN.Pt awake,in no resp distress,orally intubated,ETT 7.5,lip 25 cm,to vent on current settings ,tolerating well,GTFNepro at 40 ml/hr ,no residual noted,Pt anureic,HD pt,Rectal tube in placed draining tarry black liquid stools,IV sites x2 RW and RFA,both intact,HD access to GIANNI AV shunt,skin warm and dry,HOB elevated,SR up x2 ,bilat wrist restraints in placed,bed lock in lowest position will continue with plans of care.
--- NOTE | 2019-03-03 21:30 | NUR ---
NURSE NOTES: Pulled up and repositioned for comfort,turned to sides,kept dry and clean,oral secretions suctioned PRN.
[2019-03-03] MEDS: LORazepam Inj 2mg/ml 1ml IV PRN (22:46)
--- NOTE | 2019-03-03 22:50 | NUR ---
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
[2019-03-04] VITALS (24 sets, daily range): BP systolic 117–197; BP diastolic 39–76
--- NOTE | 2019-03-04 | NUR ---
NURSE NOTES: Pt resting quietly in bed,asleep no further agitation presented.will continue to monitor pt.
[2019-03-04] MEDS: Sucralfate 1gm tab GT SCH ×5 (00:16→23:10)
[2019-03-04] MEDS: NovoLOG Insulin Flexpen SUBQ SCH ×5 (00:18→23:19)
--- NOTE | 2019-03-04 00:31 | Progress Note ---
DATE: 03/03/2019 CARDIOLOGY PROGRESS NOTE SUBJECTIVE: The patient remains orally intubated and mechanically ventilated in intensive care unit. OBJECTIVE: VITAL SIGNS: Blood pressure 131/62, pulse 63, respiratory rate 15. Monitored rhythm sinus with rare atrial ectopics. LUNGS: Coarse breath sounds. Scattered rhonchi. HEART: Regular rhythm and rate. Normal S1, S2. There is a fourth heart sound. ABDOMEN: Soft. There is a G-tube intact. EXTREMITIES: No edema. LABORATORY DATA: White count 7.2, hemoglobin 8.1. Potassium 3.5, BUN 39, creatinine 3.3. IMPRESSION: 1. Respiratory failure. 2. Acute on chronic diastolic congestive heart failure. 3. Pleural effusions. 4. End-stage renal disease. 5. Healthcare-acquired pneumonia. PLAN: 1. Hemodialysis with ultrafiltration. 2. Maximizing anti-failure regimen as tolerated by blood pressure. 3. Antimicrobials. 4. Respiratory hygiene. 5. Weaning efforts. Wilmer Hoyos M.D. DR: Luis M JOB#: [id number] CC:
[2019-03-04] MEDS: Albuterol/Ipratropium 3ml neb HHN SCH ×4 (01:00→19:20)
--- NOTE | 2019-03-04 02:00 | NUR ---
NURSE NOTES: continue to sleep,pulled up and repositioned for comfort.
[2019-03-04 04:30] LABS: HEMATOCRIT 23.3 % (37.0-47.0); HEMOGLOBIN 7.8 G/DL (12.0-16.0); MEAN CORPUSCULAR VOLUME 97 FL (80-99); PLATELET COUNT 223 K/UL (150-450); RED BLOOD COUNT 2.41 M/UL (4.20-5.40); RED CELL DISTRIBUTION WIDTH 17.4 % (11.6-14.8); WHITE BLOOD COUNT 6.4 K/UL (4.8-10.8)
[2019-03-04 04:59] LABS: ALANINE AMINOTRANSFERASE 11 U/L (12-78); ALBUMIN 2.3 G/DL (3.4-5.0); ALBUMIN/GLOBULIN RATIO 0.5 (1.0-2.7); ALKALINE PHOSPHATASE 88 U/L (46-116); ANION GAP 9 mmol/L (5-15); ASPARTATE AMINO TRANSFERASE 13 U/L (15-37); BILIRUBIN,TOTAL 0.4 MG/DL (0.2-1.0); BLOOD UREA NITROGEN 52 mg/dL (7-18); CARBON DIOXIDE 29 MMOL/L (21-32); CHLORIDE 97 MMOL/L (98-107); PHOSPHORUS 3.2 MG/DL (2.5-4.9); SODIUM 135 MMOL/L (136-145)
[2019-03-04] MEDS: Piperacillin/Tazobactam 2.25 GM in D5W 55 ML IVPB SCH ×3 (05:33→21:02)
--- NOTE | 2019-03-04 06:00 | NUR ---
NURSE NOTES: Pt stable,no distress presented during the shift, endotracheal and oral secretions suctioned PRN,kept dry and clean.
--- NOTE | 2019-03-04 07:18 | NUR ---
HAND-OFF: Report given to Trish Hays RN.
--- NOTE | 2019-03-04 07:40 | NUR ---
NURSE NOTES: Received report Colleen Hui RN. Patient asleep in bed, opens eyes spontaneously, confused. SR 67 on cardiac cath lab radiology technologist. ETT 7.5, 25 cm at lip line, hooked to vent with settings of AC 14, TV 500, FiO2 40%, PEEP 5, saturating at 100%. GT feeding of Nepro on hold for synthroid administration, restarted at goal of 40 cc/hr, no residuals noted, HoB elevated. Rectal tube in place. Left AV shunt noted with bruit and thrill. Right forearm 20g and right wrist 20g saline locks patent and asymptomatic. Bilateral soft wrist restraints in place, skin intact, peripheral pulses present, no redness or edema noted. Bed locked in lowest position with side rails up x 3. All needs attended to. Call light within reach. Will continue to monitor.
--- NOTE | 2019-03-04 08:14 | NUR ---
RESPIRATORY NOTE: RECEIVED PT ORALLY INTUBATED ON CURRENT VENT SETTINGS: AC 14 400 +5 40%. PT MELISSA CURRENT VENT SETTINGS WELL. ETT SECURE AND PATENT. SX SMALL THICK WHITE SECRETIONS. NO RESPIRATORY DISTRESS NOTED. VENT PLUGGED INTO RED OUTLET. AMBU BAG AT BEDSIDE. WILL CONTINUE MONITORING PT.
--- NOTE | 2019-03-04 08:15 | NUR ---
NURSE NOTES: Dr. Cannon paged. Received call back from Dr. Cannon and reported patient's K level of 3.0. Received order for 4K potassium during dialysis today. Order already in place. Will notify dialysis nurse Tadeo.
[2019-03-04] MEDS: Minoxidil 2.5mg tab GT SCH (08:59)
[2019-03-04] MEDS: Heparin 5000 units/ml inj SUBQ SCH ×2 (09:00→21:00)
--- NOTE | 2019-03-04 09:00 | NUR ---
RESPIRATORY NOTE: 0900 BEGIN SBT: CPAP 5 PS 10 [id number]%, PT MELISSA WELL. PT VITALS STABLE, NO RESPIRATORY DISTRESS NOTED. WILIAM MESA AWARE. 1000 STOP SBT DUE TO HIGH RESPIRATORY RATE AND TACHYCARDIA. PT PLACED BACK ON AC VENT SETTINGS. PT MELISSA VENT SETTINGS WELL. WILIAM MESA AWARE. WILL CONTINUE MONITORING PT CLOSELY.
--- NOTE | 2019-03-04 10:00 | NUR ---
NURSE NOTES: Patient weaned from vent and tolerated 1 hour. Increased work of breathing noted and was placed back on AC mode. Will continue to monitor.
--- NOTE | 2019-03-04 10:40 | Infectious Diseases Prog Note ---
Assessment/Plan Assessment/Plan A; 1. Possible pneumonia that is improving. 2. Pleural effusions. 3. Congestive heart failure. 4. Renal failure, on dialysis. 5. Sick sinus syndrome. 6. Necrotizing esophagitis. 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 Acute respiratory failure PLAN: 1. Continue Zosyn & fluconazole Subjective ROS Limited/Unobtainable: Yes Constitutional: Denies: fever Gastrointestinal/Abdominal: Reports: blood in stool Allergies: Coded Allergies: No Known Allergies (Unverified , 05/11/18) Objective Vital Signs Last 24 Hour Vital Signs Date Time Temp Pulse Resp B/P (MAP) Pulse Ox O2 Delivery O2 Flow Rate FiO2 03/04/19 09:00 63 25 146/49 (81) 99 03/04/19 09:00 70 19 40 03/04/19 09:00 99 03/04/19 08:59 136/42 03/04/19 08:59 62 136/42 03/04/19 08:52 68 15 100 Mechanical Ventilator 40 03/04/19 08:45 67 16 40 03/04/19 08:45 66 18 98 Mechanical Ventilator 40 03/04/19 08:25 67 15 100 Mechanical Ventilator 40 03/04/19 08:14 65 18 98 Mechanical Ventilator 40 03/04/19 08:14 65 16 40 03/04/19 08:00 Mechanical Ventilator 03/04/19 08:00 97.9 65 20 136/42 (73) 100 03/04/19 08:00 40 03/04/19 07:56 66 03/04/19 07:00 61 17 124/39 (67) 97 03/04/19 06:00 65 19 124/48 (73) 98 03/04/19 05:13 63 15 40 03/04/19 05:00 61 16 129/44 (72) 100 03/04/19 04:10 Mechanical Ventilator 03/04/19 04:09 40 03/04/19 04:06 98.0 64 17 138/41 (73) 95 03/04/19 04:00 66 03/04/19 03:01 69 18 40 03/04/19 03:00 70 16 126/51 (76) 99 03/04/19 02:00 74 16 117/49 (71) 99 03/04/19 01:15 61 19 100 Mechanical Ventilator 40 6/5/19 01:08 65 16 147/49 (81) 100 03/04/19 01:00 63 18 98 Mechanical Ventilator 40 03/04/19 01:00 61 16 40 03/04/19 00:00 Mechanical Ventilator 03/04/19 00:00 66 03/04/19 00:00 96.8 64 17 131/58 (82) 97 03/04/19 00:00 40 03/03/19 23:00 61 15 91/40 (57) 93 03/03/19 22:55 66 18 40 03/03/19 22:00 67 17 121/54 (76) 99 03/03/19 21:13 79 24 40 03/03/19 21:00 65 22 98/60 (73) 100 03/03/19 20:04 89 20 99 Mechanical Ventilator 40 03/03/19 20:00 40 03/03/19 20:00 98.4 79 22 160/66 (97) 100 03/03/19 20:00 81 03/03/19 20:00 Mechanical Ventilator 03/03/19 19:54 74 22 40 03/03/19 19:53 78 15 99 Mechanical Ventilator 40 03/03/19 19:00 70 20 151/77 (101) 98 03/03/19 18:00 66 22 150/58 (88) 90 03/03/19 17:20 98.0 03/03/19 17:15 88 22 40 03/03/19 17:00 64 16 133/52 (79) 99 03/03/19 16:00 72 03/03/19 16:00 98.0 62 14 126/57 (80) 99 03/03/19 16:00 40 03/03/19 16:00 Mechanical Ventilator 03/03/19 15:00 78 18 40 03/03/19 15:00 67 18 133/62 (85) 95 03/03/19 14:00 68 18 139/69 (92) 99 03/03/19 13:10 72 15 100 Mechanical Ventilator 40 03/03/19 13:00 69 15 40 03/03/19 13:00 67 16 139/66 (90) 98 03/03/19 13:00 67 15 100 Mechanical Ventilator 40 03/03/19 12:00 Mechanical Ventilator 03/03/19 12:00 40 03/03/19 12:00 64 6/4/19 12:00 97.9 70 17 134/62 (86) 97 03/03/19 11:00 65 17 135/59 (84) 98 03/03/19 11:00 74 18 40 Height (Feet): 5 Height (Inches): 3.00 Weight (Pounds): 142 General Appearance: cachetic HEENT: other - orally intubated Respiratory/Chest: decreased breath sounds, other - on ventilator Cardiovascular: normal rate Abdomen: soft, non tender, other - GT feeding, rectal tube Extremities: no edema Neurologic/Psychiatric: unresponsiveness Laboratory Tests Test 03/04/19 03:25 White Blood Count 6.4 K/UL (4.8-10.8) Red Blood Count 2.41 M/UL (4.20-5.40) L Hemoglobin 7.8 G/DL (12.0-16.0) L Hematocrit 23.3 % (37.0-47.0) L Mean Corpuscular Volume 97 FL (80-99) Mean Corpuscular Hemoglobin 32.3 PG (27.0-31.0) H Mean Corpuscular Hemoglobin Concent 33.4 G/DL (32.0-36.0) Red Cell Distribution Width 17.4 % (11.6-14.8) H Platelet Count 223 K/UL (150-450) Mean Platelet Volume 5.8 FL (6.5-10.1) L Neutrophils (%) (Auto) % (45.0-75.0) Lymphocytes (%) (Auto) % (20.0-45.0) Monocytes (%) (Auto) % (1.0-10.0) Eosinophils (%) (Auto) % (0.0-3.0) Basophils (%) (Auto) % (0.0-2.0) Sodium Level 135 MMOL/L (136-145) L Potassium Level 3.0 MMOL/L (3.5-5.1) L Chloride Level 97 MMOL/L (98-107) L Carbon Dioxide Level 29 MMOL/L (21-32) Anion Gap 9 mmol/L (5-15) Blood Urea Nitrogen 52 mg/dL (7-18) H Creatinine 4.0 MG/DL (0.55-1.30) H Estimat Glomerular Filtration Rate mL/min (>60) Glucose Level 147 MG/DL (74-106) H Calcium Level 9.0 MG/DL (8.5-10.1) Phosphorus Level 3.2 MG/DL (2.5-4.9) Magnesium Level 2.3 MG/DL (1.8-2.4) Total Bilirubin 0.4 MG/DL (0.2-1.0) Aspartate Amino Transf (AST/SGOT) 13 U/L (15-37) L Alanine Aminotransferase (ALT/SGPT) 11 U/L (12-78) L Alkaline Phosphatase 88 U/L (46-116) Total Protein 6.9 G/DL (6.4-8.2) Albumin 2.3 G/DL (3.4-5.0) L Globulin 4.6 g/dL Albumin/Globulin Ratio 0.5 (1.0-2.7) L Current Medications Medications (Trade) Dose Ordered Sig/Konrad Route PRN Reason Start Time Stop Time Status Last Admin Dose Admin Acetaminophen (Tylenol) 650 mg Q4H PRN GT Mild Pain/Temp > 100.5 02/20/19 18:00 03/16/19 17:59 03/03/19 16:50 Acetylcysteine (Mucomyst) 100 mg TIDRT N 02/23/19 07:00 03/25/19 06:59 03/04/19 08:45 Albuterol/ Ipratropium (Albuterol/ Ipratropium) 3 ml Q6HRT [facility] 02/28/19 01:30 03/05/19 01:29 03/04/19 08:14 Amlodipine Besylate (Norvasc) 10 mg DAILY GT 02/21/19 09:00 03/17/19 08:59 03/03/19 09:55 Dextrose (Dextrose 50%) 25 ml Q30M PRN IV Hypoglycemia 02/20/19 17:45 03/16/19 15:14 Dextrose (Dextrose 50%) 50 ml Q30M PRN IV Hypoglycemia 02/20/19 17:45 03/16/19 15:14 Epoetin Chau (Epoetin Chau(ESRD on dialysis)) 10,000 unit SAT-SAT-SAT SUBQ 02/25/19 21:00 03/27/19 20:59 03/02/19 21:24 Fluconazole/ Sodium Chloride 100 ml @ 100 mls/hr Q24H IV 02/27/19 12:00 03/06/19 11:59 03/03/19 13:07 Heparin Sodium (Porcine) (Heparin 5000 units/ml) 5,000 units EVERY 12 HOURS SUBQ 02/20/19 21:00 03/16/19 20:59 03/03/19 21:41 Heparin Sodium (Porcine) (Heparin Sod 1000 units/ml 10ml) 2,000 unit ONCE PRN IV FOR HD USE ONLY 03/03/19 14:15 03/05/19 23:59 Hydralazine HCl (Apresoline) 25 mg Q6HR PRN GT Sbp above 150 03/03/19 02:45 04/02/19 02:44 Insulin Aspart (NovoLOG) EVERY 6 HOURS SUBQ 02/20/19 18:00 03/16/19 16:29 03/04/19 05:37 Lansoprazole (Prevacid) 30 mg BID GT 03/01/19 09:00 03/31/19 08:59 03/04/19 09:00 Levothyroxine Sodium (Synthroid) 150 mcg DAILY@0630 GT 02/21/19 06:30 03/17/19 06:29 03/04/19 05:43 Lorazepam (Ativan 2mg/ml 1ml) 1 mg Q3H PRN IV For Anxiety/Agitation 02/26/19 16:45 03/05/19 16:44 03/03/19 22:46 Metoclopramide HCl (Reglan) 5 mg Q6H PRN IVP Nausea & Vomiting 02/20/19 18:00 03/20/19 17:59 Minoxidil (Loniten) 2.5 mg DAILY GT 03/01/19 09:00 03/31/19 08:59 03/03/19 10:00 Ondansetron HCl (Zofran) 4 mg Q6H PRN IVP Nausea & Vomiting 02/20/19 18:00 03/19/19 17:59 Piperacillin Sod/ Tazobactam Sod 2.25 gm/Dextrose 55 ml @ 110 mls/hr Q8HR IVPB 02/26/19 22:00 03/07/19 21:59 03/04/19 05:33 Sodium Chloride 1,000 ml @ 500 mls/hr Q2H PRN IVLG sbp<90 during hd 03/03/19 14:12 03/05/19 23:59 Sucralfate (Carafate) 1 gm Q6HR GT 02/25/19 12:00 03/27/19 11:59 03/04/19 05:35 Kaden Aguilar MD Mar 04, 2019 10:40
--- NOTE | 2019-03-04 10:42 | GI Progress Note ---
Assessment/Plan Problems: (1) Anemia ICD Codes: D64.9 - Anemia, unspecified SNOMED: 230172189 (2) Respiratory failure ICD Codes: J96.90 - Respiratory failure, unspecified, unspecified whether with hypoxia or hypercapnia SNOMED: 838230508 Qualifiers: Qualified Codes: J96.01 - Acute respiratory failure with hypoxia; J96.02 - Acute respiratory failure with hypercapnia (3) End stage renal disease on dialysis ICD Codes: N18.6 - End stage renal disease; Z99.2 - Dependence on renal dialysis SNOMED: 451763293 Status: unchanged Status Narrative Discussed with Dr. Taylor. Assessment/Plan s/p EGD SUMMARY OF FINDINGS: Evidence of significant esophageal possibly necrosis in the distal esophagus most probably the source of bleeding, which we could not do anything endoscopically to control it. - Bx reviewed; gastritis, negative for H. Pylori. Esophageal Ulcer edge negative for malignancy. stable H&H, no recurrent bleed reported rectal tube in place PLAN: GTFs strict aspiration precautions, elevate the head of the bed at all times. prevacid 30 mg BID Monitor hemoglobin and hematocrit every 8 hours and transfuse to keep hemoglobin above 8. Carafate 1 g every 6 hours. repeat endoscopy if patient has recurrent bleed The patient was seen and examined at bedside and all new and available data was reviewed in the patients chart. I agree with the above findings, impression and plan. (Patient seen earlier today. Signature stamp does not reflect patient encounter time.). - Hilton Taylor MD Subjective Subjective Limited Objective Last 24 Hour Vital Signs Date Time Temp Pulse Resp B/P (MAP) Pulse Ox O2 Delivery O2 Flow Rate FiO2 03/04/19 09:00 63 25 146/49 (81) 99 03/04/19 09:00 70 19 40 03/04/19 09:00 99 03/04/19 08:59 136/42 03/04/19 08:59 62 136/42 03/04/19 08:52 68 15 100 Mechanical Ventilator 40 03/04/19 08:45 67 16 40 03/04/19 08:45 66 18 98 Mechanical Ventilator 40 03/04/19 08:25 67 15 100 Mechanical Ventilator 40 03/04/19 08:14 65 18 98 Mechanical Ventilator 40 03/04/19 08:14 65 16 40 03/04/19 08:00 Mechanical Ventilator 03/04/19 08:00 97.9 65 20 136/42 (73) 100 03/04/19 08:00 40 03/04/19 07:56 66 03/04/19 07:00 61 17 124/39 (67) 97 03/04/19 06:00 65 19 124/48 (73) 98 03/04/19 05:13 63 15 40 03/04/19 05:00 61 16 129/44 (72) 100 03/04/19 04:10 Mechanical Ventilator 03/04/19 04:09 40 03/04/19 04:06 98.0 64 17 138/41 (73) 95 03/04/19 04:00 66 03/04/19 03:01 69 18 40 03/04/19 03:00 70 16 126/51 (76) 99 03/04/19 02:00 74 16 117/49 (71) 99 03/04/19 01:15 61 19 100 Mechanical Ventilator 40 03/04/19 01:08 65 16 147/49 (81) 100 03/04/19 01:00 63 18 98 Mechanical Ventilator 40 03/04/19 01:00 61 16 40 03/04/19 00:00 Mechanical Ventilator 03/04/19 00:00 66 03/04/19 00:00 96.8 64 17 131/58 (82) 97 03/04/19 00:00 40 03/03/19 23:00 61 15 91/40 (57) 93 03/03/19 22:55 66 18 40 03/03/19 22:00 67 17 121/54 (76) 99 03/03/19 21:13 79 24 40 03/03/19 21:00 65 22 98/60 (73) 100 03/03/19 20:04 89 20 99 Mechanical Ventilator 40 03/03/19 20:00 40 03/03/19 20:00 98.4 79 22 160/66 (97) 100 03/03/19 20:00 81 03/03/19 20:00 Mechanical Ventilator 03/03/19 19:54 74 22 40 03/03/19 19:53 78 15 99 Mechanical Ventilator 40 03/03/19 19:00 70 20 151/77 (101) 98 03/03/19 18:00 66 22 150/58 (88) 90 03/03/19 17:20 98.0 03/03/19 17:15 88 22 40 03/03/19 17:00 64 16 133/52 (79) 99 03/03/19 16:00 72 03/03/19 16:00 98.0 62 14 126/57 (80) 99 03/03/19 16:00 40 03/03/19 16:00 Mechanical Ventilator 03/03/19 15:00 78 18 40 03/03/19 15:00 67 18 133/62 (85) 95 03/03/19 14:00 68 18 139/69 (92) 99 03/03/19 13:10 72 15 100 Mechanical Ventilator 40 03/03/19 13:00 69 15 40 03/03/19 13:00 67 16 139/66 (90) 98 03/03/19 13:00 67 15 100 Mechanical Ventilator 40 03/03/19 12:00 Mechanical Ventilator 03/03/19 12:00 40 03/03/19 12:00 64 03/03/19 12:00 97.9 70 17 134/62 (86) 97 03/03/19 11:00 65 17 135/59 (84) 98 03/03/19 11:00 74 18 40 Intake and Output 03/03/19 03/04/19 19:00 07:00 Intake Total 890 ml 660 ml Output Total 100 ml 50 ml Balance 790 ml 610 ml Intake Free Water 200 ml 200 ml IV Total 210 ml Tube Feeding 480 ml 400 ml Other 60 ml Stool Total 100 ml 50 ml Laboratory Tests Test 03/04/19 03:25 White Blood Count 6.4 K/UL (4.8-10.8) Red Blood Count 2.41 M/UL (4.20-5.40) L Hemoglobin 7.8 G/DL (12.0-16.0) L Hematocrit 23.3 % (37.0-47.0) L Mean Corpuscular Volume 97 FL (80-99) Mean Corpuscular Hemoglobin 32.3 PG (27.0-31.0) H Mean Corpuscular Hemoglobin Concent 33.4 G/DL (32.0-36.0) Red Cell Distribution Width 17.4 % (11.6-14.8) H Platelet Count 223 K/UL (150-450) Mean Platelet Volume 5.8 FL (6.5-10.1) L Neutrophils (%) (Auto) % (45.0-75.0) Lymphocytes (%) (Auto) % (20.0-45.0) Monocytes (%) (Auto) % (1.0-10.0) Eosinophils (%) (Auto) % (0.0-3.0) Basophils (%) (Auto) % (0.0-2.0) Sodium Level 135 MMOL/L (136-145) L Potassium Level 3.0 MMOL/L (3.5-5.1) L Chloride Level 97 MMOL/L (98-107) L Carbon Dioxide Level 29 MMOL/L (21-32) Anion Gap 9 mmol/L (5-15) Blood Urea Nitrogen 52 mg/dL (7-18) H Creatinine 4.0 MG/DL (0.55-1.30) H Estimat Glomerular Filtration Rate mL/min (>60) Glucose Level 147 MG/DL (74-106) H Calcium Level 9.0 MG/DL (8.5-10.1) Phosphorus Level 3.2 MG/DL (2.5-4.9) Magnesium Level 2.3 MG/DL (1.8-2.4) Total Bilirubin 0.4 MG/DL (0.2-1.0) Aspartate Amino Transf (AST/SGOT) 13 U/L (15-37) L Alanine Aminotransferase (ALT/SGPT) 11 U/L (12-78) L Alkaline Phosphatase 88 U/L (46-116) Total Protein 6.9 G/DL (6.4-8.2) Albumin 2.3 G/DL (3.4-5.0) L Globulin 4.6 g/dL Albumin/Globulin Ratio 0.5 (1.0-2.7) L Height (Feet): 5 Height (Inches): 3.00 Weight (Pounds): 142 General Appearance: alert Cardiovascular: normal rate Respiratory/Chest: other - intubated Abdominal Exam: GT site - c/d/i Janene Ellis NP Mar 04, 2019 10:42
--- NOTE | 2019-03-04 10:54 | Nephrology Progress Note ---
Assessment/Plan Plan Respiratory Failure due to CHF + Pneumonia, m/p due to aspiration. On vent. CHF --- HD+UF MWF Pneumonia - IV Abx. Weaning trials ongoing. Subjective Subjective In ICU. Still on vent. Objective Objective Last 24 Hour Vital Signs Date Time Temp Pulse Resp B/P (MAP) Pulse Ox O2 Delivery O2 Flow Rate FiO2 03/04/19 09:00 63 25 146/49 (81) 99 03/04/19 09:00 70 19 40 03/04/19 09:00 99 03/04/19 08:59 136/42 03/04/19 08:59 62 136/42 03/04/19 08:52 68 15 100 Mechanical Ventilator 40 03/04/19 08:45 67 16 40 03/04/19 08:45 66 18 98 Mechanical Ventilator 40 03/04/19 08:25 67 15 100 Mechanical Ventilator 40 03/04/19 08:14 65 18 98 Mechanical Ventilator 40 03/04/19 08:14 65 16 40 03/04/19 08:00 Mechanical Ventilator 03/04/19 08:00 97.9 65 20 136/42 (73) 100 03/04/19 08:00 40 03/04/19 07:56 66 03/04/19 07:00 61 17 124/39 (67) 97 03/04/19 06:00 65 19 124/48 (73) 98 03/04/19 05:13 63 15 40 03/04/19 05:00 61 16 129/44 (72) 100 03/04/19 04:10 Mechanical Ventilator 03/04/19 04:09 40 03/04/19 04:06 98.0 64 17 138/41 (73) 95 03/04/19 04:00 66 03/04/19 03:01 69 18 40 03/04/19 03:00 70 16 126/51 (76) 99 03/04/19 02:00 74 16 117/49 (71) 99 03/04/19 01:15 61 19 100 Mechanical Ventilator 40 03/04/19 01:08 65 16 147/49 (81) 100 03/04/19 01:00 63 18 98 Mechanical Ventilator 40 03/04/19 01:00 61 16 40 03/04/19 00:00 Mechanical Ventilator 03/04/19 00:00 66 03/04/19 00:00 96.8 64 17 131/58 (82) 97 03/04/19 00:00 40 03/03/19 23:00 61 15 91/40 (57) 93 03/03/19 22:55 66 18 40 03/03/19 22:00 67 17 121/54 (76) 99 03/03/19 21:13 79 24 40 03/03/19 21:00 65 22 98/60 (73) 100 03/03/19 20:04 89 20 99 Mechanical Ventilator 40 03/03/19 20:00 40 03/03/19 20:00 98.4 79 22 160/66 (97) 100 03/03/19 20:00 81 03/03/19 20:00 Mechanical Ventilator 03/03/19 19:54 74 22 40 03/03/19 19:53 78 15 99 Mechanical Ventilator 40 03/03/19 19:00 70 20 151/77 (101) 98 03/03/19 18:00 66 22 150/58 (88) 90 03/03/19 17:20 98.0 03/03/19 17:15 88 22 40 03/03/19 17:00 64 16 133/52 (79) 99 03/03/19 16:00 72 03/03/19 16:00 98.0 62 14 126/57 (80) 99 03/03/19 16:00 40 03/03/19 16:00 Mechanical Ventilator 03/03/19 15:00 78 18 40 03/03/19 15:00 67 18 133/62 (85) 95 03/03/19 14:00 68 18 139/69 (92) 99 03/03/19 13:10 72 15 100 Mechanical Ventilator 40 03/03/19 13:00 69 15 40 03/03/19 13:00 67 16 139/66 (90) 98 03/03/19 13:00 67 15 100 Mechanical Ventilator 40 03/03/19 12:00 Mechanical Ventilator 03/03/19 12:00 40 03/03/19 12:00 64 03/03/19 12:00 97.9 70 17 134/62 (86) 97 03/03/19 11:00 65 17 135/59 (84) 98 03/03/19 11:00 74 18 40 Intake and Output 03/03/19 03/04/19 19:00 07:00 Intake Total 890 ml 660 ml Output Total 100 ml 50 ml Balance 790 ml 610 ml Intake Free Water 200 ml 200 ml IV Total 210 ml Tube Feeding 480 ml 400 ml Other 60 ml Stool Total 100 ml 50 ml Laboratory Tests 03/04/19 03:25: White Blood Count 6.4, Red Blood Count 2.41L, Hemoglobin 7.8L, Hematocrit 23.3L , Mean Corpuscular Volume 97, Mean Corpuscular Hemoglobin 32.3H, Mean Corpuscular Hemoglobin Concent 33.4, Red Cell Distribution Width 17.4H, Platelet Count 223, Mean Platelet Volume 5.8L, Neutrophils (%) (Auto) , Lymphocytes (%) (Auto) , Monocytes (%) (Auto) , Eosinophils (%) (Auto) , Basophils (%) (Auto) , Sodium Level 135L, Potassium Level 3.0L, Chloride Level 97L, Carbon Dioxide Level 29, Anion Gap 9, Blood Urea Nitrogen 52H, Creatinine 4.0H, Estimat Glomerular Filtration Rate , Glucose Level 147H, Calcium Level 9.0 , Phosphorus Level 3.2, Magnesium Level 2.3, Total Bilirubin 0.4, Aspartate Amino Transf (AST/SGOT) 13L, Alanine Aminotransferase (ALT/SGPT) 11L, Alkaline Phosphatase 88, Total Protein 6.9, Albumin 2.3L, Globulin 4.6, Albumin/Globulin Ratio 0.5L Height (Feet): 5 Height (Inches): 3.00 Weight (Pounds): 142 Objective Intubated, on vent. CV RR Lungs B ronchi + wheezes. Abd SNT. BS + E No CCE Raul Cannon MD Mar 04, 2019 10:54
--- NOTE | 2019-03-04 12:15 | NUR ---
NURSE NOTES: Provided education on restraint removal criteria. Patient unable to comprehend and still attempts to pull ETT. Bilateral soft wrist restraints kept in place. Will continue to monitor and provide education.
--- NOTE | 2019-03-04 13:31 | NUR ---
NURSE NOTES: Patient is s/p dialysis, 3L output. Due meds given. VSS. Will continue to monitor.
[2019-03-04 14:26] LABS: HEMATOCRIT 31.2 % (37.0-47.0); HEMOGLOBIN 10.3 G/DL (12.0-16.0); MEAN CORPUSCULAR VOLUME 97 FL (80-99); PLATELET COUNT 287 K/UL (150-450); RED BLOOD COUNT 3.22 M/UL (4.20-5.40); RED CELL DISTRIBUTION WIDTH 17.2 % (11.6-14.8)
[2019-03-04 14:35] LABS: ANION GAP 6 mmol/L (5-15); BLOOD UREA NITROGEN 27 mg/dL (7-18); CALCIUM 9.5 MG/DL (8.5-10.1); CARBON DIOXIDE 35 MMOL/L (21-32); CHLORIDE 94 MMOL/L (98-107); CREATININE 2.5 MG/DL (0.55-1.30); POTASSIUM 4.8 MMOL/L (3.5-5.1); SODIUM 135 MMOL/L (136-145)
--- NOTE | 2019-03-04 15:51 | NUR ---
NURSE NOTES: Patient's BP noted to be elevated at 164/57. PRN hydralazine 25mg GT given. Will continue to monitor.
--- NOTE | 2019-03-04 17:30 | NUR ---
NURSE NOTES: Patient turned and repositioned. Rectal tube remains in place, no leaking noted. Replaced drainage bag, still noted with black liquid stool. Sacral dressing still intact and dry.
--- NOTE | 2019-03-04 18:18 | Pulmonology Progress Note ---
Assessment/Plan Assessment/Plan 1. acute respiratory failure 2. End-stage renal failure, on dialysis. 3. COPD. 4. Schizophrenia. 5. Pulmonary edema, due to overload 6. Anemia of chronic kidney disease. 7. Sick sinus syndrome. 8. diabetes mellitus. 9. protein calorie malnutrition 10. pulmonary infiltrates PLAN monitor as is vent noted and settings reviewed weaning - as able titrate oxygen as able HD with UF replace K keep negative as able monitor HH- recommend transfusion for improved oxygen delivery monitor for bleeding monitor fluid status and imaging continue supportive care and ICU management reviewed all and monitored nutrition and monitor protein levels follow up for change and recommend medications/laboratory data/nursing notes/ICU care reviewed in detail note reviewed and edited care discussed with RN and RT ICU time spent 45 minutes Subjective ROS Limited/Unobtainable: Yes Allergies: Coded Allergies: No Known Allergies (Unverified , 05/11/18) Subjective care noted on oxygen and vent respiratory noted ICU care reviewed and discussed d/w primary, trying to wean low HH; low k Objective Last 24 Hour Vital Signs Date Time Temp Pulse Resp B/P (MAP) Pulse Ox O2 Delivery O2 Flow Rate FiO2 03/04/19 17:06 86 24 40 03/04/19 16:00 40 03/04/19 16:00 84 03/04/19 16:00 97.9 90 22 147/58 (87) 99 03/04/19 16:00 Mechanical Ventilator 03/04/19 15:51 167/66 03/04/19 15:20 101 28 40 03/04/19 15:00 93 22 164/57 (92) 96 03/04/19 14:00 91 24 136/51 (79) 93 03/04/19 13:29 Mechanical Ventilator 40 03/04/19 13:29 103 27 100 Mechanical Ventilator 40 03/04/19 13:00 103 27 40 03/04/19 13:00 103 24 153/63 (93) 92 03/04/19 12:00 Mechanical Ventilator 03/04/19 12:00 40 03/04/19 12:00 97.9 87 23 121/74 (90) 89 03/04/19 11:57 66 03/04/19 11:16 77 23 40 03/04/19 11:00 77 20 121/41 (67) 96 03/04/19 10:00 91 33 150/55 (86) 94 03/04/19 10:00 75 23 40 03/04/19 09:00 63 25 146/49 (81) 99 03/04/19 09:00 70 19 40 03/04/19 09:00 99 03/04/19 08:59 136/42 03/04/19 08:59 62 136/42 03/04/19 08:52 68 15 100 Mechanical Ventilator 40 03/04/19 08:45 67 16 40 03/04/19 08:45 66 18 98 Mechanical Ventilator 40 03/04/19 08:25 67 15 100 Mechanical Ventilator 40 03/04/19 08:14 65 18 98 Mechanical Ventilator 40 03/04/19 08:14 65 16 40 03/04/19 08:00 Mechanical Ventilator 03/04/19 08:00 97.9 65 20 136/42 (73) 100 03/04/19 08:00 40 03/04/19 07:56 66 03/04/19 07:00 61 17 124/39 (67) 97 03/04/19 06:00 65 19 124/48 (73) 98 03/04/19 05:13 63 15 40 03/04/19 05:00 61 16 129/44 (72) 100 03/04/19 04:10 Mechanical Ventilator 03/04/19 04:09 40 03/04/19 04:06 98.0 64 17 138/41 (73) 95 03/04/19 04:00 66 03/04/19 03:01 69 18 40 03/04/19 03:00 70 16 126/51 (76) 99 03/04/19 02:00 74 16 117/49 (71) 99 03/04/19 01:15 61 19 100 Mechanical Ventilator 40 03/04/19 01:08 65 16 147/49 (81) 100 03/04/19 01:00 63 18 98 Mechanical Ventilator 40 03/04/19 01:00 61 16 40 03/04/19 00:00 Mechanical Ventilator 03/04/19 00:00 66 03/04/19 00:00 96.8 64 17 131/58 (82) 97 03/04/19 00:00 40 03/03/19 23:00 61 15 91/40 (57) 93 03/03/19 22:55 66 18 40 03/03/19 22:00 67 17 121/54 (76) 99 03/03/19 21:13 79 24 40 03/03/19 21:00 65 22 98/60 (73) 100 03/03/19 20:04 89 20 99 Mechanical Ventilator 40 03/03/19 20:00 40 03/03/19 20:00 98.4 79 22 160/66 (97) 100 03/03/19 20:00 81 03/03/19 20:00 Mechanical Ventilator 03/03/19 19:54 74 22 40 03/03/19 19:53 78 15 99 Mechanical Ventilator 40 03/03/19 19:00 70 20 151/77 (101) 98 Intake and Output 03/03/19 03/04/19 18:59 06:59 Intake Total 890 ml 700 ml Output Total 150 ml Balance 890 ml 550 ml Intake Free Water 200 ml 200 ml IV Total 210 ml Tube Feeding 480 ml 440 ml Other 60 ml Stool Total 150 ml Objective WDWN on vent ETT in place reduced breath sounds bilaterally without rhonchi or wheeze [id number] without MRG NABS nontender no HSM; no distention; feeding tube no CC mild edema nonfocal and sedated reviewed and edited Laboratory Tests 03/04/19 03:25: White Blood Count 6.4, Red Blood Count 2.41L, Hemoglobin 7.8L, Hematocrit 23.3L , Mean Corpuscular Volume 97, Mean Corpuscular Hemoglobin 32.3H, Mean Corpuscular Hemoglobin Concent 33.4, Red Cell Distribution Width 17.4H, Platelet Count 223, Mean Platelet Volume 5.8L, Neutrophils (%) (Auto) , Lymphocytes (%) (Auto) , Monocytes (%) (Auto) , Eosinophils (%) (Auto) , Basophils (%) (Auto) , Sodium Level 135L, Potassium Level 3.0L, Chloride Level 97L, Carbon Dioxide Level 29, Anion Gap 9, Blood Urea Nitrogen 52H, Creatinine 4.0H, Estimat Glomerular Filtration Rate , Glucose Level 147H, Calcium Level 9.0 , Phosphorus Level 3.2, Magnesium Level 2.3, Total Bilirubin 0.4, Aspartate Amino Transf (AST/SGOT) 13L, Alanine Aminotransferase (ALT/SGPT) 11L, Alkaline Phosphatase 88, Total Protein 6.9, Albumin 2.3L, Globulin 4.6, Albumin/Globulin Ratio 0.5L 03/04/19 14:05: White Blood Count 10.0#, Red Blood Count 3.22L, Hemoglobin 10.3#L, Hematocrit 31.2#L, Mean Corpuscular Volume 97, Mean Corpuscular Hemoglobin 32.0H, Mean Corpuscular Hemoglobin Concent 33.0, Red Cell Distribution Width 17.2H, Platelet Count 287, Mean Platelet Volume 5.4L, Neutrophils (%) (Auto) , Lymphocytes (%) (Auto) , Monocytes (%) (Auto) , Eosinophils (%) (Auto) , Basophils (%) (Auto) , Sodium Level 135L, Potassium Level 4.8#, Chloride Level 94L, Carbon Dioxide Level 35H, Anion Gap 6, Blood Urea Nitrogen 27H, Creatinine 2.5H, Estimat Glomerular Filtration Rate , Glucose Level 180H, Calcium Level 9.5 , Differential Total Cells Counted 100, Neutrophils % (Manual) 89H, Lymphocytes % (Manual) 4L, Monocytes % (Manual) 5, Eosinophils % (Manual) 1, Basophils % ( Manual) 1, Band Neutrophils 0, Platelet Estimate Adequate, Platelet Morphology Normal Current Medications Medications (Trade) Dose Ordered Sig/Konrad Route PRN Reason Start Time Stop Time Status Last Admin Dose Admin Acetaminophen (Tylenol) 650 mg Q4H PRN GT Mild Pain/Temp > 100.5 02/20/19 18:00 03/16/19 17:59 03/03/19 16:50 Acetylcysteine (Mucomyst) 100 mg TIDRT [facility] 02/23/19 07:00 03/25/19 06:59 03/04/19 08:45 Albuterol/ Ipratropium (Albuterol/ Ipratropium) 3 ml Q6HRT [facility] 02/28/19 01:30 03/05/19 01:29 03/04/19 08:14 Amlodipine Besylate (Norvasc) 10 mg DAILY GT 02/21/19 09:00 03/17/19 08:59 03/03/19 09:55 Dextrose (Dextrose 50%) 25 ml Q30M PRN IV Hypoglycemia 02/20/19 17:45 03/16/19 15:14 Dextrose (Dextrose 50%) 50 ml Q30M PRN IV Hypoglycemia 02/20/19 17:45 03/16/19 15:14 Epoetin Chau (Epoetin Chau(ESRD on dialysis)) 10,000 unit SAT-SAT-SAT SUBQ 02/25/19 21:00 03/27/19 20:59 03/02/19 21:24 Fluconazole/ Sodium Chloride 100 ml @ 100 mls/hr Q24H IV 02/27/19 12:00 03/06/19 11:59 03/04/19 13:28 Heparin Sodium (Porcine) (Heparin 5000 units/ml) 5,000 units EVERY 12 HOURS SUBQ 02/20/19 21:00 03/16/19 20:59 03/03/19 21:41 Heparin Sodium (Porcine) (Heparin Sod 1000 units/ml 10ml) 2,000 unit ONCE PRN IV FOR HD USE ONLY 03/03/19 14:15 03/05/19 23:59 Hydralazine HCl (Apresoline) 25 mg Q6HR PRN GT Sbp above 150 03/03/19 02:45 04/02/19 02:44 03/04/19 15:51 Insulin Aspart (NovoLOG) EVERY 6 HOURS SUBQ 02/20/19 18:00 03/16/19 16:29 03/04/19 18:06 Lansoprazole (Prevacid) 30 mg BID GT 03/01/19 09:00 03/31/19 08:59 03/04/19 18:05 Levothyroxine Sodium (Synthroid) 150 mcg DAILY@0630 GT 02/21/19 06:30 03/17/19 06:29 03/04/19 05:43 Lorazepam (Ativan 2mg/ml 1ml) 1 mg Q3H PRN IV For Anxiety/Agitation 02/26/19 16:45 03/05/19 16:44 03/03/19 22:46 Metoclopramide HCl (Reglan) 5 mg Q6H PRN IVP Nausea & Vomiting 02/20/19 18:00 03/20/19 17:59 Minoxidil (Loniten) 2.5 mg DAILY GT 03/01/19 09:00 03/31/19 08:59 03/03/19 10:00 Ondansetron HCl (Zofran) 4 mg Q6H PRN IVP Nausea & Vomiting 02/20/19 18:00 03/19/19 17:59 Piperacillin Sod/ Tazobactam Sod 2.25 gm/Dextrose 55 ml @ 110 mls/hr Q8HR IVPB 02/26/19 22:00 03/07/19 21:59 03/04/19 14:03 Sodium Chloride 1,000 ml @ 500 mls/hr Q2H PRN IVLG sbp<90 during hd 03/03/19 14:12 03/05/19 23:59 Sucralfate (Carafate) 1 gm Q6HR GT 02/25/19 12:00 03/27/19 11:59 03/04/19 18:05 Jac Ramirez MD Mar 04, 2019 18:17
--- NOTE | 2019-03-04 19:25 | NUR ---
HAND-OFF: Report given to Sirisha Pereira RN.
--- NOTE | 2019-03-04 19:30 | NUR ---
NURSE NOTES: Received patient from WILIAM Massey. Will continue plan of care.
--- NOTE | 2019-03-04 20:00 | NUR ---
NURSE NOTES: Vital signs are stable, RT at bedside, will continue plan of care.
[2019-03-04] MEDS: Epoetin Alfa-EPBX(ESRD on dialysis)10,000 unit/ml vial SUBQ SCH (21:02)
[2019-03-04] MEDS: LORazepam Inj 2mg/ml 1ml IV PRN (21:02)
--- NOTE | 2019-03-04 22:00 | NUR ---
NURSE NOTES: Patient is resting comfortably. Ativan 1ml IV administered and patient is no longer agitated. BP is stable at 122/60. Will continue care.
[2019-03-05] VITALS (24 sets, daily range): BP systolic 109–156; BP diastolic 54–91
--- NOTE | 2019-03-05 | NUR ---
NURSE NOTES: Patient is restless. Attempting to remove ET, Ativan PRN give for agitation. Will continue care.
[2019-03-05] MEDS: LORazepam Inj 2mg/ml 1ml IV PRN (00:38)
[2019-03-05] MEDS: Albuterol/Ipratropium 3ml neb HHN SCH ×2 (01:26→18:56)
--- NOTE | 2019-03-05 02:52 | NUR ---
NURSE NOTES: Krystina signs stable. Patient resting comfortably showing no signs and symptoms of pain or distress. Will continue care.
--- NOTE | 2019-03-05 04:00 | NUR ---
NURSE NOTES: Vital signs are stable. Bed bath given along with linens changed. Patient repositioned. Bed on lowest position and bed alarm activated. Will continue care.
--- NOTE | 2019-03-05 04:30 | Progress Note ---
DATE: 03/04/2019 CARDIOLOGY PROGRESS NOTE SUBJECTIVE: Remains on ventilator support. Condition remains critical. Prognosis guarded. OBJECTIVE: VITAL SIGNS: Blood pressure 147/58, pulse 90, respiratory rate 22. Thin secretions per endotracheal tube. LUNGS: Bilateral rhonchi. HEART: Regular rhythm and rate. Normal S1, S2. ABDOMEN: Soft. 1+ dependent edema. LABORATORY AND DIAGNOSTIC DATA: White count 10, hemoglobin 10, platelets 287,000. Sodium 135, potassium 4.8, bicarb 35, BUN 27, creatinine 2.5. IMPRESSION: 1. Acute on chronic diastolic congestive heart failure. 2. Healthcare-acquired pneumonia. 3. Respiratory failure. 4. End-stage renal disease. PLAN: 1. Hemodialysis with ultrafiltration. 2. Titrating antihypertensives and anti-failure drugs based on clinical parameters. 3. Ventilator support with weaning. 4. Antimicrobials. 5. DVT and stress ulcer prophylaxis. Wilmer Hoyos M.D. DR: DEB JOB#: [id number] CC:
[2019-03-05] MEDS: Sucralfate 1gm tab GT SCH ×4 (05:37→23:32)
[2019-03-05] MEDS: NovoLOG Insulin Flexpen SUBQ SCH ×4 (05:38→23:34)
[2019-03-05] MEDS: Piperacillin/Tazobactam 2.25 GM in D5W 55 ML IVPB SCH ×3 (05:38→22:21)
--- NOTE | 2019-03-05 06:00 | NUR ---
NURSE NOTES: Patient is resting comfortably. ET tube in place and shows no signs of agitation. Patient repositioned, GT flushed and feeding on hold for Synthroid administration. Will continue care.
--- NOTE | 2019-03-05 06:50 | NUR ---
RESPIRATORY NOTE: received pt orally intubated with ETT 7.5, placed 23 cm at the lip. ETT is secured via anchor fast with no redness or skin tears seen around facial/mouth area. Pt is in no apparent resp distress at this time. vent alarms are set and audible and plugged into the red outlet. ambu bag at bed side. weaning orders will follow later this morning and will cont to monitor.
--- NOTE | 2019-03-05 07:20 | NUR ---
HAND-OFF: Report given to WILIAM Carnes.
--- NOTE | 2019-03-05 07:21 | NUR ---
NURSE NOTES: RECEIVED PATIENT FROM Sirisha MANE RN. PATIENT IS LYING IN BED, ASLEEP. HOOKED TO AUTOMOTIVE SERVICE PROFESSIONAL. ORALLY INTUBATED. ETT 7.5 AT 25CM LIP LINE. VENT SETTINGS A 14, TV 500, FiO2 40%, PEEP 5. NO SIGNS OF DISTRESS. GT NOTED. GTF RUNNING NEPRO AT 40ML/HR. NOTED RECTAL TUBE. SKIN ALTERATION NOTED. ON RESTRAINTS. L UA AV SHUNT FOR HD PORT. IVS ON R W G20 AND R HAND G20, SL. CALL LIGHT WITHIN REACH. SIDE RAILS UP. BED AT LOWEST POSITION. WILL CONTINUE TO MONITOR.
--- NOTE | 2019-03-05 08:37 | NUR ---
RESPIRATORY NOTE: attempted to wean pt, but did not meet criteria. RN notified. will cont to monitor pt.
[2019-03-05] MEDS: Heparin 5000 units/ml inj SUBQ SCH ×2 (09:00→21:23)
[2019-03-05] MEDS: Minoxidil 2.5mg tab GT SCH (09:07)
--- NOTE | 2019-03-05 09:30 | NUR ---
NURSE NOTES: TURNED AND REPOSITIONED PATIENT . WILL CONTINUE TO MONITOR.
--- NOTE | 2019-03-05 10:13 | NUR ---
NURSE NOTES: TRIED TP WEAN BUT DIDN'T MET THE CRITERIA. TOLERATING VENT SETTINGS. NO SIGNS OF DISTRESS. WILL CONTINUE TO MONITOR.
--- NOTE | 2019-03-05 10:20 | GI Progress Note ---
Assessment/Plan Problems: (1) Anemia ICD Codes: D64.9 - Anemia, unspecified SNOMED: 698096272 (2) Respiratory failure ICD Codes: J96.90 - Respiratory failure, unspecified, unspecified whether with hypoxia or hypercapnia SNOMED: 420224186 Qualifiers: Qualified Codes: J96.01 - Acute respiratory failure with hypoxia; J96.02 - Acute respiratory failure with hypercapnia (3) End stage renal disease on dialysis ICD Codes: N18.6 - End stage renal disease; Z99.2 - Dependence on renal dialysis SNOMED: 011444171 Status: stable, unchanged Status Narrative Discussed with Dr. Taylor. Assessment/Plan s/p EGD SUMMARY OF FINDINGS: Evidence of significant esophageal possibly necrosis in the distal esophagus most probably the source of bleeding, which we could not do anything endoscopically to control it. - Bx reviewed; gastritis, negative for H. Pylori. Esophageal Ulcer edge negative for malignancy. stable H&H, no recurrent bleed reported rectal tube in place PLAN: GTFs strict aspiration precautions, elevate the head of the bed at all times. prevacid 30 mg BID Monitor hemoglobin and hematocrit every 8 hours and transfuse to keep hemoglobin above 8. Carafate 1 g every 6 hours. repeat endoscopy if patient has recurrent bleed The patient was seen and examined at bedside and all new and available data was reviewed in the patients chart. I agree with the above findings, impression and plan. (Patient seen earlier today. Signature stamp does not reflect patient encounter time.). - Hilton Taylor MD Subjective Subjective Limited Objective Last 24 Hour Vital Signs Date Time Temp Pulse Resp B/P (MAP) Pulse Ox O2 Delivery O2 Flow Rate FiO2 03/05/19 10:00 68 17 122/54 (76) 100 03/05/19 09:07 140/62 03/05/19 09:07 74 140/62 03/05/19 09:00 70 18 140/62 (88) 100 03/05/19 08:37 73 22 40 40 03/05/19 08:35 92 03/05/19 08:00 Mechanical Ventilator 03/05/19 08:00 40 03/05/19 08:00 71 03/05/19 08:00 98.2 77 22 131/72 (91) 100 03/05/19 07:00 80 21 141/63 (89) 100 03/05/19 06:53 Mechanical Ventilator 40 03/05/19 06:52 Mechanical Ventilator 40 03/05/19 06:46 77 24 40 03/05/19 06:00 78 22 146/81 (102) 100 03/05/19 05:00 80 22 150/74 (99) 100 03/05/19 04:56 78 19 40 03/05/19 04:00 40 03/05/19 04:00 97.8 78 21 147/65 (92) 99 03/05/19 04:00 Mechanical Ventilator 03/05/19 03:56 76 03/05/19 03:23 76 23 40 03/05/19 03:00 76 20 134/64 (87) 100 03/05/19 02:00 84 28 140/54 (82) 100 03/05/19 01:37 87 14 98 Mechanical Ventilator 40 03/05/19 01:24 92 25 100 Mechanical Ventilator 40 03/05/19 01:19 90 24 40 03/05/19 01:00 86 21 145/60 (88) 97 03/05/19 00:00 Mechanical Ventilator 03/05/19 00:00 97.8 85 21 150/64 (92) 97 03/04/19 23:35 80 03/04/19 23:00 82 21 144/58 (86) 97 03/04/19 22:53 80 20 40 03/04/19 22:00 86 22 122/60 (80) 100 03/04/19 21:17 89 20 40 03/04/19 21:00 93 22 192/76 (114) 97 03/04/19 20:00 40 03/04/19 20:00 98.2 85 29 197/73 (114) 98 03/04/19 20:00 Mechanical Ventilator 03/04/19 19:34 82 20 95 Mechanical Ventilator 40 03/04/19 19:34 84 03/04/19 19:17 82 28 95 Mechanical Ventilator 40 03/04/19 19:15 84 26 40 03/04/19 19:00 87 24 146/60 (88) 92 03/04/19 18:00 86 21 147/61 (89) 97 03/04/19 17:06 86 24 40 03/04/19 17:00 87 23 144/63 (90) 92 03/04/19 16:00 40 03/04/19 16:00 84 03/04/19 16:00 97.9 90 22 147/58 (87) 99 03/04/19 16:00 Mechanical Ventilator 03/04/19 15:51 167/66 03/04/19 15:20 101 28 40 03/04/19 15:00 93 22 164/57 (92) 96 03/04/19 14:00 91 24 136/51 (79) 93 03/04/19 13:29 Mechanical Ventilator 40 03/04/19 13:29 103 27 100 Mechanical Ventilator 40 03/04/19 13:00 103 27 40 03/04/19 13:00 103 24 153/63 (93) 92 03/04/19 12:00 Mechanical Ventilator 03/04/19 12:00 40 03/04/19 12:00 97.9 87 23 121/74 (90) 89 03/04/19 11:57 66 03/04/19 11:16 77 23 40 03/04/19 11:00 77 20 121/41 (67) 96 Intake and Output 03/04/19 03/05/19 19:00 07:00 Intake Total 875 ml 710 ml Output Total 100 ml 250 ml Balance 775 ml 460 ml Intake Free Water 100 ml 200 ml IV Total 155 ml 110 ml Tube Feeding 440 ml 400 ml Other 180 ml Stool Total 100 ml 250 ml Laboratory Tests Test 03/04/19 14:05 White Blood Count 10.0 K/UL (4.8-10.8) # Red Blood Count 3.22 M/UL (4.20-5.40) L Hemoglobin 10.3 G/DL (12.0-16.0) #L Hematocrit 31.2 % (37.0-47.0) #L Mean Corpuscular Volume 97 FL (80-99) Mean Corpuscular Hemoglobin 32.0 PG (27.0-31.0) H Mean Corpuscular Hemoglobin Concent 33.0 G/DL (32.0-36.0) Red Cell Distribution Width 17.2 % (11.6-14.8) H Platelet Count 287 K/UL (150-450) Mean Platelet Volume 5.4 FL (6.5-10.1) L Neutrophils (%) (Auto) % (45.0-75.0) Lymphocytes (%) (Auto) % (20.0-45.0) Monocytes (%) (Auto) % (1.0-10.0) Eosinophils (%) (Auto) % (0.0-3.0) Basophils (%) (Auto) % (0.0-2.0) Differential Total Cells Counted 100 Neutrophils % (Manual) 89 % (45-75) H Lymphocytes % (Manual) 4 % (20-45) L Monocytes % (Manual) 5 % (1-10) Eosinophils % (Manual) 1 % (0-3) Basophils % (Manual) 1 % (0-2) Band Neutrophils 0 % (0-8) Platelet Estimate Adequate Platelet Morphology Normal Sodium Level 135 MMOL/L (136-145) L Potassium Level 4.8 MMOL/L (3.5-5.1) # Chloride Level 94 MMOL/L (98-107) L Carbon Dioxide Level 35 MMOL/L (21-32) H Anion Gap 6 mmol/L (5-15) Blood Urea Nitrogen 27 mg/dL (7-18) H Creatinine 2.5 MG/DL (0.55-1.30) H Estimat Glomerular Filtration Rate mL/min (>60) Glucose Level 180 MG/DL (74-106) H Calcium Level 9.5 MG/DL (8.5-10.1) Height (Feet): 5 Height (Inches): 3.00 Weight (Pounds): 142 General Appearance: no apparent distress Cardiovascular: normal rate Respiratory/Chest: no respiratory distress, other - intubated Abdominal Exam: normal bowel sounds, non tender, soft, GT site - c/d/i Extremities: non-tender Janene Ellis NP Mar 05, 2019 10:20
--- NOTE | 2019-03-05 11:23 | NUR ---
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 * Increased kcal/prot needs R/T renal dysfunction, ESRD, wound healing, underweight status as evidenced by pt on HD, admitted w/ sacral partial thickness wound per research geneticist, low BMI per guidelines, pt @ 89% IBW. ENTERAL NUTRITION RECOMMENDATIONS: Nepro @ 40ml/hr x 22 hrs to provide 880ml, 1584kcal, 71g prot, 640ml free water * Maintain @goal rate as tolerated * Hold 1 hr before and after Synthroid med * HOB over 30 degrees/ water flush per MD ADDITIONAL RECOMMENDATIONS: * Per SNF record: HT=66", PP=501atx (02/09/19) -> rec calibrated bedscale wt. Current bedscale reads 139lbs/140lbs * Obtain dry wt post HD * F/UP w/ WC eval for sacral wound -> continue Zeke 1pkt BID * Probiotics for diarrhea
--- NOTE | 2019-03-05 11:42 | Nephrology Progress Note ---
Assessment/Plan Plan Respiratory Failure due to CHF , m/p due to aspiration. On vent. CHF --- HD+UF MWF Pneumonia - IV Abx. Weaning trials ongoing. Not making any progress! CXR still CHF. To add HD today. Subjective Subjective In ICU. Still on vent. Objective Objective Last 24 Hour Vital Signs Date Time Temp Pulse Resp B/P (MAP) Pulse Ox O2 Delivery O2 Flow Rate FiO2 03/05/19 11:00 71 16 123/91 (102) 100 03/05/19 10:33 67 17 40 03/05/19 10:00 68 17 122/54 (76) 100 03/05/19 09:07 140/62 03/05/19 09:07 74 140/62 03/05/19 09:00 70 18 140/62 (88) 100 03/05/19 08:37 73 22 40 40 03/05/19 08:35 92 03/05/19 08:00 Mechanical Ventilator 03/05/19 08:00 40 03/05/19 08:00 71 03/05/19 08:00 98.2 77 22 131/72 (91) 100 03/05/19 07:00 80 21 141/63 (89) 100 03/05/19 06:53 Mechanical Ventilator 40 03/05/19 06:52 Mechanical Ventilator 40 03/05/19 06:46 77 24 40 03/05/19 06:00 78 22 146/81 (102) 100 03/05/19 05:00 80 22 150/74 (99) 100 03/05/19 04:56 78 19 40 03/05/19 04:00 40 03/05/19 04:00 97.8 78 21 147/65 (92) 99 03/05/19 04:00 Mechanical Ventilator 03/05/19 03:56 76 03/05/19 03:23 76 23 40 03/05/19 03:00 76 20 134/64 (87) 100 03/05/19 02:00 84 28 140/54 (82) 100 03/05/19 01:37 87 14 98 Mechanical Ventilator 40 03/05/19 01:24 92 25 100 Mechanical Ventilator 40 03/05/19 01:19 90 24 40 03/05/19 01:00 86 21 145/60 (88) 97 03/05/19 00:00 Mechanical Ventilator 03/05/19 00:00 97.8 85 21 150/64 (92) 97 03/04/19 23:35 80 03/04/19 23:00 82 21 144/58 (86) 97 03/04/19 22:53 80 20 40 03/04/19 22:00 86 22 122/60 (80) 100 03/04/19 21:17 89 20 40 03/04/19 21:00 93 22 192/76 (114) 97 03/04/19 20:00 40 03/04/19 20:00 98.2 85 29 197/73 (114) 98 03/04/19 20:00 Mechanical Ventilator 03/04/19 19:34 82 20 95 Mechanical Ventilator 40 03/04/19 19:34 84 03/04/19 19:17 82 28 95 Mechanical Ventilator 40 03/04/19 19:15 84 26 40 03/04/19 19:00 87 24 146/60 (88) 92 03/04/19 18:00 86 21 147/61 (89) 97 03/04/19 17:06 86 24 40 03/04/19 17:00 87 23 144/63 (90) 92 03/04/19 16:00 40 03/04/19 16:00 84 03/04/19 16:00 97.9 90 22 147/58 (87) 99 03/04/19 16:00 Mechanical Ventilator 03/04/19 15:51 167/66 03/04/19 15:20 101 28 40 03/04/19 15:00 93 22 164/57 (92) 96 03/04/19 14:00 91 24 136/51 (79) 93 03/04/19 13:29 Mechanical Ventilator 40 03/04/19 13:29 103 27 100 Mechanical Ventilator 40 03/04/19 13:00 103 27 40 03/04/19 13:00 103 24 153/63 (93) 92 03/04/19 12:00 Mechanical Ventilator 03/04/19 12:00 40 03/04/19 12:00 97.9 87 23 121/74 (90) 89 03/04/19 11:57 66 Intake and Output 03/04/19 03/05/19 19:00 07:00 Intake Total 875 ml 710 ml Output Total 100 ml 250 ml Balance 775 ml 460 ml Intake Free Water 100 ml 200 ml IV Total 155 ml 110 ml Tube Feeding 440 ml 400 ml Other 180 ml Stool Total 100 ml 250 ml Laboratory Tests 03/04/19 14:05: White Blood Count 10.0#, Red Blood Count 3.22L, Hemoglobin 10.3#L, Hematocrit 31.2#L, Mean Corpuscular Volume 97, Mean Corpuscular Hemoglobin 32.0H, Mean Corpuscular Hemoglobin Concent 33.0, Red Cell Distribution Width 17.2H, Platelet Count 287, Mean Platelet Volume 5.4L, Neutrophils (%) (Auto) , Lymphocytes (%) (Auto) , Monocytes (%) (Auto) , Eosinophils (%) (Auto) , Basophils (%) (Auto) , Differential Total Cells Counted 100, Neutrophils % ( Manual) 89H, Lymphocytes % (Manual) 4L, Monocytes % (Manual) 5, Eosinophils % ( Manual) 1, Basophils % (Manual) 1, Band Neutrophils 0, Platelet Estimate Adequate, Platelet Morphology Normal, Sodium Level 135L, Potassium Level 4.8#, Chloride Level 94L, Carbon Dioxide Level 35H, Anion Gap 6, Blood Urea Nitrogen 27H, Creatinine 2.5H, Estimat Glomerular Filtration Rate , Glucose Level 180H, Calcium Level 9.5 Height (Feet): 5 Height (Inches): 3.00 Weight (Pounds): 142 Objective Intubated, on vent. CV RR Lungs B ronchi + wheezes. Abd SNT. BS + E No CCE Raul Cannon MD Mar 05, 2019 11:42
[2019-03-05] MEDS ORDERED: Heparin Sod 1000 units/ml 10ml IV PRN (11:45)
--- NOTE | 2019-03-05 12:00 | NUR ---
NURSE NOTES: SEEN AND EXAMINED BY DR RODRIGUEZ WITH NEW ORDERS MADE. PATIENT TOLERATED VENT SETTINGS AND GTF. WILL CONTINUE OT MONITOR.
[2019-03-05 13:17] LABS: EOSINOPHILS % (AUTO) 3.4 % (0.0-3.0); HEMATOCRIT 28.1 % (37.0-47.0); HEMOGLOBIN 8.9 G/DL (12.0-16.0); LYMPHOCYTES % (AUTO) 11.4 % (20.0-45.0); MEAN CORPUSCULAR VOLUME 99 FL (80-99); MONOCYTES % (AUTO) 7.4 % (1.0-10.0); NEUTROPHILS % (AUTO) 76.8 % (45.0-75.0); PLATELET COUNT 249 K/UL (150-450); RED BLOOD COUNT 2.84 M/UL (4.20-5.40); RED CELL DISTRIBUTION WIDTH 17.5 % (11.6-14.8); WHITE BLOOD COUNT 7.2 K/UL (4.8-10.8)
--- NOTE | 2019-03-05 13:26 | NUR ---
NURSE NOTES: CALLED AND SPOKE WITH KATHY [facility] FOR THE SCHEDULED DIALYSIS TODAY. AWAITING FOR CALL BACK. WILL CONTINUE O MONITOR.
--- NOTE | 2019-03-05 13:34 | NUR ---
RADIOLOGY DEPT., CHEST X-RAY DONE BY BINDU CESAR.,KamlaP.HEAVEN
--- NOTE | 2019-03-05 15:28 | Infectious Diseases Prog Note ---
Assessment/Plan Assessment/Plan A; 1. Possible pneumonia that is improving. 2. Pleural effusions. 3. Congestive heart failure. 4. Renal failure, on dialysis. 5. Sick sinus syndrome. 6. Necrotizing esophagitis. 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 Acute respiratory failure PLAN: 1. Continue Zosyn & fluconazole Subjective ROS Limited/Unobtainable: Yes Neurologic: Reports: confusion, other - on restraint Allergies: Coded Allergies: No Known Allergies (Unverified , 05/11/18) Objective Vital Signs Last 24 Hour Vital Signs Date Time Temp Pulse Resp B/P (MAP) Pulse Ox O2 Delivery O2 Flow Rate FiO2 03/05/19 15:00 73 24 156/68 (97) 100 03/05/19 14:33 75 19 40 03/05/19 14:00 75 22 154/69 (97) 100 03/05/19 13:00 72 15 131/65 (87) 98 03/05/19 12:43 Mechanical Ventilator 40 03/05/19 12:43 Mechanical Ventilator 40 03/05/19 12:41 71 18 40 03/05/19 12:00 71 18 124/54 (77) 100 03/05/19 12:00 Mechanical Ventilator 03/05/19 12:00 40 03/05/19 12:00 69 03/05/19 12:00 99.2 03/05/19 11:00 71 16 123/91 (102) 100 03/05/19 10:33 67 17 40 03/05/19 10:00 68 17 122/54 (76) 100 03/05/19 09:07 140/62 03/05/19 09:07 74 140/62 03/05/19 09:00 70 18 140/62 (88) 100 03/05/19 08:37 73 22 40 40 03/05/19 08:35 92 03/05/19 08:00 Mechanical Ventilator 03/05/19 08:00 40 03/05/19 08:00 71 03/05/19 08:00 98.2 77 22 131/72 (91) 100 03/05/19 07:00 80 21 141/63 (89) 100 03/05/19 06:53 Mechanical Ventilator 40 03/05/19 06:52 Mechanical Ventilator 40 03/05/19 06:46 77 24 40 03/05/19 06:00 78 22 146/81 (102) 100 03/05/19 05:00 80 22 150/74 (99) 100 03/05/19 04:56 78 19 40 03/05/19 04:00 40 03/05/19 04:00 97.8 78 21 147/65 (92) 99 03/05/19 04:00 Mechanical Ventilator 03/05/19 03:56 76 03/05/19 03:23 76 23 40 03/05/19 03:00 76 20 134/64 (87) 100 03/05/19 02:00 84 28 140/54 (82) 100 03/05/19 01:37 87 14 98 Mechanical Ventilator 40 03/05/19 01:24 92 25 100 Mechanical Ventilator 40 03/05/19 01:19 90 24 40 03/05/19 01:00 86 21 145/60 (88) 97 03/05/19 00:00 Mechanical Ventilator 03/05/19 00:00 97.8 85 21 150/64 (92) 97 03/04/19 23:35 80 03/04/19 23:00 82 21 144/58 (86) 97 03/04/19 22:53 80 20 40 03/04/19 22:00 86 22 122/60 (80) 100 03/04/19 21:17 89 20 40 03/04/19 21:00 93 22 192/76 (114) 97 03/04/19 20:00 40 03/04/19 20:00 98.2 85 29 197/73 (114) 98 03/04/19 20:00 Mechanical Ventilator 03/04/19 19:34 82 20 95 Mechanical Ventilator 40 03/04/19 19:34 84 03/04/19 19:17 82 28 95 Mechanical Ventilator 40 03/04/19 19:15 84 26 40 03/04/19 19:00 87 24 146/60 (88) 92 03/04/19 18:00 86 21 147/61 (89) 97 03/04/19 17:06 86 24 40 03/04/19 17:00 87 23 144/63 (90) 92 03/04/19 16:00 40 03/04/19 16:00 84 03/04/19 16:00 97.9 90 22 147/58 (87) 99 03/04/19 16:00 Mechanical Ventilator 03/04/19 15:51 167/66 Height (Feet): 5 Height (Inches): 3.00 Weight (Pounds): 142 HEENT: mucous membranes moist, other - orally intubated Respiratory/Chest: lungs clear, other - on ventilator Cardiovascular: normal rate Abdomen: soft, non tender, other - GT feeding Extremities: no edema Neurologic/Psychiatric: other - opens eyes Laboratory Tests Test 03/05/19 12:25 White Blood Count 7.2 K/UL (4.8-10.8) Red Blood Count 2.84 M/UL (4.20-5.40) L Hemoglobin 8.9 G/DL (12.0-16.0) L Hematocrit 28.1 % (37.0-47.0) L Mean Corpuscular Volume 99 FL (80-99) Mean Corpuscular Hemoglobin 31.5 PG (27.0-31.0) H Mean Corpuscular Hemoglobin Concent 31.8 G/DL (32.0-36.0) L Red Cell Distribution Width 17.5 % (11.6-14.8) H Platelet Count 249 K/UL (150-450) Mean Platelet Volume 5.3 FL (6.5-10.1) L Neutrophils (%) (Auto) 76.8 % (45.0-75.0) H Lymphocytes (%) (Auto) 11.4 % (20.0-45.0) L Monocytes (%) (Auto) 7.4 % (1.0-10.0) Eosinophils (%) (Auto) 3.4 % (0.0-3.0) H Basophils (%) (Auto) 1.0 % (0.0-2.0) Phosphorus Level 2.9 MG/DL (2.5-4.9) Current Medications Medications (Trade) Dose Ordered Sig/Konrad Route PRN Reason Start Time Stop Time Status Last Admin Dose Admin Acetaminophen (Tylenol) 650 mg Q4H PRN GT Mild Pain/Temp > 100.5 02/20/19 18:00 03/16/19 17:59 03/03/19 16:50 Acetylcysteine (Mucomyst) 100 mg TIDRT HHN 02/23/19 07:00 03/25/19 06:59 03/04/19 19:19 Amlodipine Besylate (Norvasc) 10 mg DAILY GT 02/21/19 09:00 03/17/19 08:59 03/05/19 09:07 Dextrose (Dextrose 50%) 25 ml Q30M PRN IV Hypoglycemia 02/20/19 17:45 03/16/19 15:14 Dextrose (Dextrose 50%) 50 ml Q30M PRN IV Hypoglycemia 02/20/19 17:45 03/16/19 15:14 Epoetin Chau (Epoetin Chau(ESRD on dialysis)) 10,000 unit SUBQ 02/25/19 21:00 03/27/19 20:59 03/04/19 21:02 Fluconazole/ Sodium Chloride 100 ml @ 100 mls/hr Q24H IV 02/27/19 12:00 03/12/19 11:59 03/05/19 12:16 Heparin Sodium (Porcine) (Heparin 5000 units/ml) 5,000 units EVERY 12 HOURS SUBQ 02/20/19 21:00 03/16/19 20:59 03/03/19 21:41 Heparin Sodium (Porcine) (Heparin Sod 1000 units/ml 10ml) 2,000 unit ONCE PRN IV Hemodyalsis 03/05/19 11:45 03/05/19 23:59 Hydralazine HCl (Apresoline) 25 mg Q6HR PRN GT Sbp above 150 03/03/19 02:45 04/02/19 02:44 03/04/19 15:51 Insulin Aspart (NovoLOG) EVERY 6 HOURS SUBQ 02/20/19 18:00 03/16/19 16:29 03/05/19 12:17 Lansoprazole (Prevacid) 30 mg BID GT 03/01/19 09:00 03/31/19 08:59 03/05/19 09:07 Levothyroxine Sodium (Synthroid) 150 mcg DAILY@0630 GT 02/21/19 06:30 03/17/19 06:29 03/05/19 05:37 Metoclopramide HCl (Reglan) 5 mg Q6H PRN IVP Nausea & Vomiting 02/20/19 18:00 03/20/19 17:59 Minoxidil (Loniten) 2.5 mg DAILY GT 03/01/19 09:00 03/31/19 08:59 03/05/19 09:07 Ondansetron HCl (Zofran) 4 mg Q6H PRN IVP Nausea & Vomiting 02/20/19 18:00 03/19/19 17:59 Piperacillin Sod/ Tazobactam Sod 2.25 gm/Dextrose 55 ml @ 110 mls/hr Q8HR IVPB 02/26/19 22:00 03/12/19 21:59 03/05/19 13:37 Sodium Chloride 1,000 ml @ 500 mls/hr Q2H PRN IVLG sbp<90 during hd 03/05/19 11:53 03/05/19 23:59 Sucralfate (Carafate) 1 gm Q6HR GT 02/25/19 12:00 03/27/19 11:59 03/05/19 12:16 Kaden Aguilar MD Mar 05, 2019 15:27
--- NOTE | 2019-03-05 16:46 | NUR ---
SENIOR GIS ANALYSTHEALTH ANALYST SI:RESPIRATORY FAILURE . PNA VS: BP 156/68, P 68, T 98.2, RR 24, SpO2 98 RBC 2.84, H&H 8.9/28.1, IS:ZOSYN 55ml IVPB NOVOLOG SUBQ FLUCONAZOLE 100ml IV NORVASC 10mG LONITEN 2.5mg SYNTHROID 150mg ALBUTEROL 3ml HHN ATTEMPTED WEANING BUT PT. DID NOT MEET CRITERIA ICU STATUS
--- NOTE | 2019-03-05 17:30 | NUR ---
NURSE NOTES: TOLERATING DIALYSIS. ON SAME VENT SETTINGS. NO SIGNS OF DISTRESS. WILL CONTINUE TO MONITOR.
--- NOTE | 2019-03-05 19:12 | NUR ---
HAND-OFF: Report given to Sammy Ely RN.
--- NOTE | 2019-03-05 19:30 | NUR ---
NURSE NOTES:Received pt awake, slightly restless hemodialysis on progress. orally intubated on ac mode bilateral soft wrist restraint maintained for safety. jai continue to monitor.
--- NOTE | 2019-03-05 21:00 | NUR ---
NURSE NOTES: hemodialysis was finished 3Liters out,
--- NOTE | 2019-03-05 22:21 | Pulmonolgy Critical Care Note ---
Critical Care - Asmt/Plan Assessment/Plan: Pulmonary CCM Progress Note Assessment/Plan 1. acute respiratory failure 2. End-stage renal failure, on dialysis. 3. COPD. 4. Schizophrenia. 5. Pulmonary edema, due to overload 6. Anemia of chronic kidney disease. 7. Sick sinus syndrome. 8. diabetes mellitus. PLAN acid base adequate vent noted and settings reviewed weaning trial if able- will need transfusion prior to initiation titrate oxygen as able HD with UF transfuse ? gi bleed monitor fluid status and imaging continue supportive care nutrition as tolerated follow up for change medications/laboratory data/nursing notes/ICU care reviewed in detail note reviewed and edited care discussed with RN and RT ICU time spent 45 minutes Subjective ROS Limited/Unobtainable: Yes Allergies: Coded Allergies: No Known Allergies (Unverified , 05/11/18) Subjective care noted on oxygen on vent respiratory noted no distress ICU care reviewed Objective Vital Signs Noted Objective WDWN on vent ETT in place reduced breath sounds bilaterally without rhonchi or wheeze [id number] without MRG NABS nontender no HSM no CC mild edema nonfocal and sedated reviewed and edited Microbiology Date/Time Source Procedure Growth Status 02/23/19 04:00 Sputum Gram Stain - Final Resulted 02/23/19 04:00 Sputum Sputum Culture - Preliminary NORMAL UPPER RESPIRATORY SILVER PRESENT Resulted 02/23/19 04:50 Stool Clostridium difficile Toxin Assay - Final Complete Laboratory Tests Noted Critical Care - Objective Last 24 Hour Vital Signs Date Time Temp Pulse Resp B/P (MAP) Pulse Ox O2 Delivery O2 Flow Rate FiO2 03/05/19 21:02 88 23 40 03/05/19 19:13 95 25 97 Mechanical Ventilator 40 03/05/19 19:10 90 16 40 03/05/19 19:00 89 25 115/70 (85) 99 03/05/19 18:56 88 27 99 Mechanical Ventilator 40 03/05/19 18:00 71 23 130/60 (83) 100 03/05/19 17:00 70 16 132/71 (91) 100 03/05/19 16:46 69 17 40 03/05/19 16:00 98.2 68 17 143/69 (93) 100 03/05/19 16:00 Mechanical Ventilator 03/05/19 16:00 40 03/05/19 16:00 69 03/05/19 15:00 73 24 156/68 (97) 100 03/05/19 14:33 75 19 40 03/05/19 14:00 75 22 154/69 (97) 100 03/05/19 13:00 72 15 131/65 (87) 98 03/05/19 12:43 Mechanical Ventilator 40 03/05/19 12:43 Mechanical Ventilator 40 03/05/19 12:41 71 18 40 03/05/19 12:00 71 18 124/54 (77) 100 03/05/19 12:00 Mechanical Ventilator 03/05/19 12:00 40 03/05/19 12:00 69 03/05/19 12:00 99.2 03/05/19 11:00 71 16 123/91 (102) 100 03/05/19 10:33 67 17 40 03/05/19 10:00 68 17 122/54 (76) 100 03/05/19 09:07 140/62 03/05/19 09:07 74 140/62 03/05/19 09:00 70 18 140/62 (88) 100 03/05/19 08:37 73 22 40 40 03/05/19 08:35 92 03/05/19 08:00 Mechanical Ventilator 03/05/19 08:00 40 03/05/19 08:00 71 03/05/19 08:00 98.2 77 22 131/72 (91) 100 03/05/19 07:00 80 21 141/63 (89) 100 03/05/19 06:53 Mechanical Ventilator 40 03/05/19 06:52 Mechanical Ventilator 40 03/05/19 06:46 77 24 40 03/05/19 06:00 78 22 146/81 (102) 100 03/05/19 05:00 80 22 150/74 (99) 100 03/05/19 04:56 78 19 40 03/05/19 04:00 40 03/05/19 04:00 97.8 78 21 147/65 (92) 99 03/05/19 04:00 Mechanical Ventilator 03/05/19 03:56 76 03/05/19 03:23 76 23 40 03/05/19 03:00 76 20 134/64 (87) 100 03/05/19 02:00 84 28 140/54 (82) 100 03/05/19 01:37 87 14 98 Mechanical Ventilator 40 6/6/19 01:24 92 25 100 Mechanical Ventilator 40 03/05/19 01:19 90 24 40 03/05/19 01:00 86 21 145/60 (88) 97 03/05/19 00:00 Mechanical Ventilator 03/05/19 00:00 97.8 85 21 150/64 (92) 97 03/04/19 23:35 80 03/04/19 23:00 82 21 144/58 (86) 97 03/04/19 22:53 80 20 40 Accucheck: 168 Critical Care - Subjective ROS Limited/Unobtainable: No FI02: 40 Vent Support Breath Rate: 14 Vent Support Mode: AC Vent Tidal Volume: 400 Sputum Amount: Small PEEP: 5.0 PIP: 22 Tube Feeding Amount: 40 I&O: Intake and Output 03/04/19 03/05/19 18:59 06:59 Intake Total 835 ml 750 ml Output Total 100 ml Balance 735 ml 750 ml Intake Free Water 100 ml 200 ml IV Total 155 ml 110 ml Tube Feeding 400 ml 440 ml Other 180 ml Stool Total 100 ml ET-Tube: 7.5 ET Position: 23 Wilmer Palacios MD Mar 05, 2019 22:21
--- NOTE | 2019-03-05 23:00 | NUR ---
NURSE NOTES:Bilateral soft wrist resterained maintained for safety,
[2019-03-06] VITALS (23 sets, daily range): BP systolic 104–151; BP diastolic 57–90
[2019-03-06] MEDS: Albuterol/Ipratropium 3ml neb HHN SCH ×4 (00:57→19:10)
--- NOTE | 2019-03-06 04:00 | NUR ---
NURSE NOTES:Complete bed bath with bed changed was done
[2019-03-06 04:54] LABS: BASOPHILS % (AUTO) 1.5 % (0.0-2.0); EOSINOPHILS % (AUTO) 1.4 % (0.0-3.0); HEMATOCRIT 30.9 % (37.0-47.0); HEMOGLOBIN 10.1 G/DL (12.0-16.0); LYMPHOCYTES % (AUTO) 6.8 % (20.0-45.0); MEAN CORPUSCULAR VOLUME 99 FL (80-99); MONOCYTES % (AUTO) 6.8 % (1.0-10.0); NEUTROPHILS % (AUTO) 83.6 % (45.0-75.0); PLATELET COUNT 288 K/UL (150-450); RED BLOOD COUNT 3.12 M/UL (4.20-5.40); RED CELL DISTRIBUTION WIDTH 17.7 % (11.6-14.8); WHITE BLOOD COUNT 9.6 K/UL (4.8-10.8)
[2019-03-06 05:22] LABS: ANION GAP 10 mmol/L (5-15); BLOOD UREA NITROGEN 38 mg/dL (7-18); CALCIUM 9.6 MG/DL (8.5-10.1); CARBON DIOXIDE 29 MMOL/L (21-32); CHLORIDE 93 MMOL/L (98-107); CREATININE 2.8 MG/DL (0.55-1.30); POTASSIUM 3.8 MMOL/L (3.5-5.1); SODIUM 132 MMOL/L (136-145)
[2019-03-06] MEDS: Piperacillin/Tazobactam 2.25 GM in D5W 55 ML IVPB SCH ×3 (06:11→21:16)
[2019-03-06] MEDS: Sucralfate 1gm tab GT SCH ×3 (06:11→18:21)
[2019-03-06] MEDS: NovoLOG Insulin Flexpen SUBQ SCH ×3 (06:12→18:22)
[2019-03-06] MEDS ORDERED: NS 275ml ONE (06:14)
[2019-03-06] MEDS ORDERED: Tubing IV Secondary IV ONE (06:14)
--- NOTE | 2019-03-06 06:50 | NUR ---
RESPIRATORY NOTE: received pt on current vent settings, orally intubated secured via anchor fast with no redness or skin tears. pt in no apparent resp distress at this time. weaning orders to follow later this morning. vent is plugged into the redoutlet with alarms on and audible. ambu bag at bedside. will cont to monitor.
--- NOTE | 2019-03-06 07:21 | NUR ---
HAND-OFF: Report given to Siobhan Peters RN.
--- NOTE | 2019-03-06 08:00 | NUR ---
RESTLESS V/S CONDTION UNCHANGED HOB UP/
[2019-03-06] MEDS: Minoxidil 2.5mg tab GT SCH (08:12)
[2019-03-06] MEDS: Heparin 5000 units/ml inj SUBQ SCH ×2 (08:14→20:22)
--- NOTE | 2019-03-06 08:49 | NUR ---
RESPIRATORY NOTE: attempted to wean on CPAP PS10, pt did not meet criteria, RR increased to high 30s. RN notified
--- NOTE | 2019-03-06 11:02 | GI Progress Note ---
Assessment/Plan Problems: (1) Anemia ICD Codes: D64.9 - Anemia, unspecified SNOMED: 277387079 (2) Respiratory failure ICD Codes: J96.90 - Respiratory failure, unspecified, unspecified whether with hypoxia or hypercapnia SNOMED: 647351027 Qualifiers: Qualified Codes: J96.01 - Acute respiratory failure with hypoxia; J96.02 - Acute respiratory failure with hypercapnia (3) End stage renal disease on dialysis ICD Codes: N18.6 - End stage renal disease; Z99.2 - Dependence on renal dialysis SNOMED: 396116059 Status: unchanged Status Narrative Discussed with Dr. Taylor Assessment/Plan s/p EGD SUMMARY OF FINDINGS: Evidence of significant esophageal possibly necrosis in the distal esophagus most probably the source of bleeding, which we could not do anything endoscopically to control it. - Bx reviewed; gastritis, negative for H. Pylori. Esophageal Ulcer edge negative for malignancy. stable H&H, no recurrent bleed reported rectal tube in place PLAN: GTFs strict aspiration precautions, elevate the head of the bed at all times. prevacid 30 mg BID Monitor hemoglobin and hematocrit every 8 hours and transfuse to keep hemoglobin above 8. Carafate 1 g every 6 hours. repeat endoscopy if patient has recurrent bleed The patient was seen and examined at bedside and all new and available data was reviewed in the patients chart. I agree with the above findings, impression and plan. (Patient seen earlier today. Signature stamp does not reflect patient encounter time.). - Hilton Taylor MD Subjective Subjective Limited Objective Last 24 Hour Vital Signs Date Time Temp Pulse Resp B/P (MAP) Pulse Ox O2 Delivery O2 Flow Rate FiO2 03/06/19 10:43 83 23 40 03/06/19 10:00 85 23 138/70 (92) 99 03/06/19 09:00 88 30 131/68 (89) 100 03/06/19 08:47 88 29 40 40 03/06/19 08:45 89 03/06/19 08:13 79 148/74 03/06/19 08:12 148/74 03/06/19 08:00 84 03/06/19 08:00 88 17 148/74 (98) 100 03/06/19 08:00 40 03/06/19 08:00 Mechanical Ventilator 03/06/19 07:00 98.0 87 18 140/90 (107) 100 03/06/19 07:00 85 14 100 Mechanical Ventilator 40 03/06/19 06:54 87 21 97 Mechanical Ventilator 40 03/06/19 06:49 79 26 40 03/06/19 06:00 79 17 140/63 (88) 100 03/06/19 05:22 80 19 40 03/06/19 04:00 Mechanical Ventilator 03/06/19 04:00 98.4 80 18 143/78 (99) 100 03/06/19 04:00 40 03/06/19 04:00 81 03/06/19 03:00 81 17 132/63 (86) 100 03/06/19 02:52 85 19 40 03/06/19 02:00 82 17 123/59 (80) 100 03/06/19 01:13 90 23 99 Mechanical Ventilator 40 03/06/19 01:00 84 20 119/57 (77) 100 03/06/19 00:57 86 22 98 Mechanical Ventilator 40 03/06/19 00:55 88 17 40 03/06/19 00:00 Mechanical Ventilator 03/06/19 00:00 98.4 84 20 131/68 (89) 100 03/06/19 00:00 40 03/06/19 00:00 84 03/05/19 23:00 83 20 139/67 (91) 100 03/05/19 22:52 85 21 40 03/05/19 22:00 86 21 116/66 (83) 100 03/05/19 21:02 88 23 40 03/05/19 21:00 89 25 109/59 (76) 100 03/05/19 20:00 40 03/05/19 20:00 98.0 93 25 136/72 (93) 99 03/05/19 20:00 Mechanical Ventilator 03/05/19 19:13 95 25 97 Mechanical Ventilator 40 03/05/19 19:10 90 16 40 03/05/19 19:00 89 25 115/70 (85) 99 03/05/19 18:56 88 27 99 Mechanical Ventilator 40 03/05/19 18:00 71 23 130/60 (83) 100 03/05/19 17:00 70 16 132/71 (91) 100 03/05/19 16:46 69 17 40 03/05/19 16:00 98.2 68 17 143/69 (93) 100 03/05/19 16:00 Mechanical Ventilator 03/05/19 16:00 40 03/05/19 16:00 69 03/05/19 15:00 73 24 156/68 (97) 100 03/05/19 14:33 75 19 40 03/05/19 14:00 75 22 154/69 (97) 100 03/05/19 13:00 72 15 131/65 (87) 98 03/05/19 12:43 Mechanical Ventilator 40 03/05/19 12:43 Mechanical Ventilator 40 03/05/19 12:41 71 18 40 03/05/19 12:00 71 18 124/54 (77) 100 03/05/19 12:00 Mechanical Ventilator 03/05/19 12:00 40 03/05/19 12:00 69 03/05/19 12:00 99.2 Intake and Output 03/05/19 03/06/19 19:00 07:00 Intake Total 890 ml 560 ml Output Total 100 ml 180 ml Balance 790 ml 380 ml Intake Free Water 200 ml 120 ml IV Total 210 ml Tube Feeding 480 ml 440 ml Stool Total 100 ml 180 ml Laboratory Tests Test 03/05/19 12:25 03/06/19 03:50 White Blood Count 7.2 K/UL (4.8-10.8) 9.6 K/UL (4.8-10.8) Red Blood Count 2.84 M/UL (4.20-5.40) L 3.12 M/UL (4.20-5.40) L Hemoglobin 8.9 G/DL (12.0-16.0) L 10.1 G/DL (12.0-16.0) L Hematocrit 28.1 % (37.0-47.0) L 30.9 % (37.0-47.0) L Mean Corpuscular Volume 99 FL (80-99) 99 FL (80-99) Mean Corpuscular Hemoglobin 31.5 PG (27.0-31.0) H 32.3 PG (27.0-31.0) H Mean Corpuscular Hemoglobin Concent 31.8 G/DL (32.0-36.0) L 32.7 G/DL (32.0-36.0) Red Cell Distribution Width 17.5 % (11.6-14.8) H 17.7 % (11.6-14.8) H Platelet Count 249 K/UL (150-450) 288 K/UL (150-450) Mean Platelet Volume 5.3 FL (6.5-10.1) L 5.7 FL (6.5-10.1) L Neutrophils (%) (Auto) 76.8 % (45.0-75.0) H 83.6 % (45.0-75.0) H Lymphocytes (%) (Auto) 11.4 % (20.0-45.0) L 6.8 % (20.0-45.0) L Monocytes (%) (Auto) 7.4 % (1.0-10.0) 6.8 % (1.0-10.0) Eosinophils (%) (Auto) 3.4 % (0.0-3.0) H 1.4 % (0.0-3.0) Basophils (%) (Auto) 1.0 % (0.0-2.0) 1.5 % (0.0-2.0) Phosphorus Level 2.9 MG/DL (2.5-4.9) Sodium Level 132 MMOL/L (136-145) L Potassium Level 3.8 MMOL/L (3.5-5.1) Chloride Level 93 MMOL/L (98-107) L Carbon Dioxide Level 29 MMOL/L (21-32) Anion Gap 10 mmol/L (5-15) Blood Urea Nitrogen 38 mg/dL (7-18) H Creatinine 2.8 MG/DL (0.55-1.30) H Estimat Glomerular Filtration Rate mL/min (>60) Glucose Level 237 MG/DL (74-106) H Calcium Level 9.6 MG/DL (8.5-10.1) Height (Feet): 5 Height (Inches): 3.00 Weight (Pounds): 140 General Appearance: lethargic Cardiovascular: normal rate Respiratory/Chest: normal breath sounds Abdominal Exam: soft, GT site - Clean dry and intact Janene Ellis NP Mar 06, 2019 11:02
--- NOTE | 2019-03-06 11:10 | Infectious Diseases Prog Note ---
Assessment/Plan Assessment/Plan antibiotics : zosyn, fluconazole A 1. pneumonia 2. yenifer esophagitis 3. renal failure 4. CHF 5. respiratory failure 6. pleural effusions P 1. continue zosyn, fluconazole 2. will follow up cultures Subjective ROS Limited/Unobtainable: Yes Allergies: Coded Allergies: No Known Allergies (Unverified , 05/11/18) Objective Vital Signs Last 24 Hour Vital Signs Date Time Temp Pulse Resp B/P (MAP) Pulse Ox O2 Delivery O2 Flow Rate FiO2 03/06/19 10:43 83 23 40 03/06/19 10:00 85 23 138/70 (92) 99 03/06/19 09:00 88 30 131/68 (89) 100 03/06/19 08:47 88 29 40 40 03/06/19 08:45 89 03/06/19 08:13 79 148/74 03/06/19 08:12 148/74 03/06/19 08:00 84 03/06/19 08:00 88 17 148/74 (98) 100 03/06/19 08:00 40 03/06/19 08:00 Mechanical Ventilator 03/06/19 07:00 98.0 87 18 140/90 (107) 100 03/06/19 07:00 85 14 100 Mechanical Ventilator 40 03/06/19 06:54 87 21 97 Mechanical Ventilator 40 03/06/19 06:49 79 26 40 03/06/19 06:00 79 17 140/63 (88) 100 03/06/19 05:22 80 19 40 03/06/19 04:00 Mechanical Ventilator 03/06/19 04:00 98.4 80 18 143/78 (99) 100 03/06/19 04:00 40 03/06/19 04:00 81 03/06/19 03:00 81 17 132/63 (86) 100 03/06/19 02:52 85 19 40 03/06/19 02:00 82 17 123/59 (80) 100 03/06/19 01:13 90 23 99 Mechanical Ventilator 40 03/06/19 01:00 84 20 119/57 (77) 100 03/06/19 00:57 86 22 98 Mechanical Ventilator 40 03/06/19 00:55 88 17 40 03/06/19 00:00 Mechanical Ventilator 03/06/19 00:00 98.4 84 20 131/68 (89) 100 03/06/19 00:00 40 03/06/19 00:00 84 03/05/19 23:00 83 20 139/67 (91) 100 03/05/19 22:52 85 21 40 03/05/19 22:00 86 21 116/66 (83) 100 03/05/19 21:02 88 23 40 03/05/19 21:00 89 25 109/59 (76) 100 03/05/19 20:00 40 03/05/19 20:00 98.0 93 25 136/72 (93) 99 03/05/19 20:00 Mechanical Ventilator 03/05/19 19:13 95 25 97 Mechanical Ventilator 40 03/05/19 19:10 90 16 40 03/05/19 19:00 89 25 115/70 (85) 99 03/05/19 18:56 88 27 99 Mechanical Ventilator 40 03/05/19 18:00 71 23 130/60 (83) 100 03/05/19 17:00 70 16 132/71 (91) 100 03/05/19 16:46 69 17 40 03/05/19 16:00 98.2 68 17 143/69 (93) 100 03/05/19 16:00 Mechanical Ventilator 03/05/19 16:00 40 03/05/19 16:00 69 03/05/19 15:00 73 24 156/68 (97) 100 03/05/19 14:33 75 19 40 03/05/19 14:00 75 22 154/69 (97) 100 03/05/19 13:00 72 15 131/65 (87) 98 03/05/19 12:43 Mechanical Ventilator 40 03/05/19 12:43 Mechanical Ventilator 40 03/05/19 12:41 71 18 40 03/05/19 12:00 71 18 124/54 (77) 100 03/05/19 12:00 Mechanical Ventilator 03/05/19 12:00 40 03/05/19 12:00 69 03/05/19 12:00 99.2 Height (Feet): 5 Height (Inches): 3.00 Weight (Pounds): 140 Respiratory/Chest: lungs clear Cardiovascular: normal rate, regular rhythm, no gallop/murmur Abdomen: soft, non tender, other - GT Extremities: no edema Laboratory Tests Test 03/05/19 12:25 6/7/19 03:50 White Blood Count 7.2 K/UL (4.8-10.8) 9.6 K/UL (4.8-10.8) Red Blood Count 2.84 M/UL (4.20-5.40) L 3.12 M/UL (4.20-5.40) L Hemoglobin 8.9 G/DL (12.0-16.0) L 10.1 G/DL (12.0-16.0) L Hematocrit 28.1 % (37.0-47.0) L 30.9 % (37.0-47.0) L Mean Corpuscular Volume 99 FL (80-99) 99 FL (80-99) Mean Corpuscular Hemoglobin 31.5 PG (27.0-31.0) H 32.3 PG (27.0-31.0) H Mean Corpuscular Hemoglobin Concent 31.8 G/DL (32.0-36.0) L 32.7 G/DL (32.0-36.0) Red Cell Distribution Width 17.5 % (11.6-14.8) H 17.7 % (11.6-14.8) H Platelet Count 249 K/UL (150-450) 288 K/UL (150-450) Mean Platelet Volume 5.3 FL (6.5-10.1) L 5.7 FL (6.5-10.1) L Neutrophils (%) (Auto) 76.8 % (45.0-75.0) H 83.6 % (45.0-75.0) H Lymphocytes (%) (Auto) 11.4 % (20.0-45.0) L 6.8 % (20.0-45.0) L Monocytes (%) (Auto) 7.4 % (1.0-10.0) 6.8 % (1.0-10.0) Eosinophils (%) (Auto) 3.4 % (0.0-3.0) H 1.4 % (0.0-3.0) Basophils (%) (Auto) 1.0 % (0.0-2.0) 1.5 % (0.0-2.0) Phosphorus Level 2.9 MG/DL (2.5-4.9) Sodium Level 132 MMOL/L (136-145) L Potassium Level 3.8 MMOL/L (3.5-5.1) Chloride Level 93 MMOL/L (98-107) L Carbon Dioxide Level 29 MMOL/L (21-32) Anion Gap 10 mmol/L (5-15) Blood Urea Nitrogen 38 mg/dL (7-18) H Creatinine 2.8 MG/DL (0.55-1.30) H Estimat Glomerular Filtration Rate mL/min (>60) Glucose Level 237 MG/DL (74-106) H Calcium Level 9.6 MG/DL (8.5-10.1) Current Medications Medications (Trade) Dose Ordered Sig/Konrad Route PRN Reason Start Time Stop Time Status Last Admin Dose Admin Acetaminophen (Tylenol) 650 mg Q4H PRN GT Mild Pain/Temp > 100.5 02/20/19 18:00 03/16/19 17:59 03/03/19 16:50 Acetylcysteine (Mucomyst) 100 mg Q6HRT HHN 03/05/19 19:00 03/25/19 06:59 03/06/19 06:56 Albuterol/ Ipratropium (Albuterol/ Ipratropium) 3 ml Q6HRT HHN 03/05/19 19:00 03/10/19 18:59 03/06/19 06:56 Amlodipine Besylate (Norvasc) 10 mg DAILY GT 02/21/19 09:00 03/17/19 08:59 03/06/19 08:13 Dextrose (Dextrose 50%) 25 ml Q30M PRN IV Hypoglycemia 02/20/19 17:45 03/16/19 15:14 Dextrose (Dextrose 50%) 50 ml Q30M PRN IV Hypoglycemia 02/20/19 17:45 03/16/19 15:14 Epoetin Chau (Epoetin Chau(ESRD on dialysis)) 10,000 unit SAT-SAT-SAT SUBQ 02/25/19 21:00 03/27/19 20:59 03/04/19 21:02 Fluconazole/ Sodium Chloride 100 ml @ 100 mls/hr Q24H IV 02/27/19 12:00 03/12/19 11:59 03/05/19 12:16 Heparin Sodium (Porcine) (Heparin 5000 units/ml) 5,000 units EVERY 12 HOURS SUBQ 02/20/19 21:00 03/16/19 20:59 03/06/19 08:14 Hydralazine HCl (Apresoline) 25 mg Q6HR PRN GT Sbp above 150 03/03/19 02:45 04/02/19 02:44 03/04/19 15:51 Insulin Aspart (NovoLOG) EVERY 6 HOURS SUBQ 02/20/19 18:00 03/16/19 16:29 03/06/19 06:12 Lansoprazole (Prevacid) 30 mg BID GT 03/01/19 09:00 03/31/19 08:59 03/06/19 08:12 Levothyroxine Sodium (Synthroid) 150 mcg DAILY@0630 GT 02/21/19 06:30 03/17/19 06:29 03/06/19 06:11 Metoclopramide HCl (Reglan) 5 mg Q6H PRN IVP Nausea & Vomiting 02/20/19 18:00 03/20/19 17:59 Minoxidil (Loniten) 2.5 mg DAILY GT 03/01/19 09:00 03/31/19 08:59 03/06/19 08:12 Ondansetron HCl (Zofran) 4 mg Q6H PRN IVP Nausea & Vomiting 02/20/19 18:00 03/19/19 17:59 Piperacillin Sod/ Tazobactam Sod 2.25 gm/Dextrose 55 ml @ 110 mls/hr Q8HR IVPB 02/26/19 22:00 03/12/19 21:59 03/06/19 06:11 Sucralfate (Carafate) 1 gm Q6HR GT 02/25/19 12:00 03/27/19 11:59 03/06/19 06:11 Deuce Lewis MD Mar 06, 2019 11:10
--- NOTE | 2019-03-06 11:40 | NUR ---
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 98.0 HR 85 RR 17 B/P 148/71 AC 14 TV 400 FIO2 405 PEEP 5 NA 132 BUN 38 CR 2.8 IS: DIFLUCAN IV ZOSYN IV HEPARIN SUBC ALB HHN ICU STATUS
[2019-03-06 11:58] LABS: ANION GAP 7 mmol/L (5-15); BLOOD UREA NITROGEN 45 mg/dL (7-18); CALCIUM 9.6 MG/DL (8.5-10.1); CARBON DIOXIDE 33 MMOL/L (21-32); CHLORIDE 93 MMOL/L (98-107); CREATININE 3.1 MG/DL (0.55-1.30); POTASSIUM 3.6 MMOL/L (3.5-5.1); SODIUM 133 MMOL/L (136-145)
--- NOTE | 2019-03-06 14:32 | Nephrology Progress Note ---
Assessment/Plan Plan Respiratory Failure due to intractable CHF Try HD + UF again today to avoid trach! Subjective Subjective In ICU. Still on vent. despite stopping all anxiolytics! Objective Objective Last 24 Hour Vital Signs Date Time Temp Pulse Resp B/P (MAP) Pulse Ox O2 Delivery O2 Flow Rate FiO2 03/06/19 14:00 81 22 137/67 (90) 100 03/06/19 13:00 97.7 81 22 129/60 (83) 100 03/06/19 12:55 76 14 100 Mechanical Ventilator 40 03/06/19 12:48 75 18 98 Mechanical Ventilator 40 03/06/19 12:48 75 23 40 03/06/19 12:00 78 03/06/19 12:00 83 24 128/62 (84) 99 03/06/19 12:00 Mechanical Ventilator 03/06/19 12:00 40 03/06/19 11:00 78 29 130/72 (91) 99 03/06/19 10:43 83 23 40 03/06/19 10:00 85 23 138/70 (92) 99 03/06/19 09:00 88 30 131/68 (89) 100 03/06/19 08:47 88 29 40 40 03/06/19 08:45 89 03/06/19 08:13 79 148/74 03/06/19 08:12 148/74 03/06/19 08:00 84 03/06/19 08:00 88 17 148/74 (98) 100 03/06/19 08:00 40 03/06/19 08:00 Mechanical Ventilator 03/06/19 07:00 98.0 87 18 140/90 (107) 100 03/06/19 07:00 85 14 100 Mechanical Ventilator 40 03/06/19 06:54 87 21 97 Mechanical Ventilator 40 03/06/19 06:49 79 26 40 03/06/19 06:00 79 17 140/63 (88) 100 03/06/19 05:22 80 19 40 03/06/19 04:00 Mechanical Ventilator 03/06/19 04:00 98.4 80 18 143/78 (99) 100 03/06/19 04:00 40 03/06/19 04:00 81 03/06/19 03:00 81 17 132/63 (86) 100 03/06/19 02:52 85 19 40 03/06/19 02:00 82 17 123/59 (80) 100 03/06/19 01:13 90 23 99 Mechanical Ventilator 40 03/06/19 01:00 84 20 119/57 (77) 100 03/06/19 00:57 86 22 98 Mechanical Ventilator 40 03/06/19 00:55 88 17 40 03/06/19 00:00 Mechanical Ventilator 03/06/19 00:00 98.4 84 20 131/68 (89) 100 03/06/19 00:00 40 03/06/19 00:00 84 03/05/19 23:00 83 20 139/67 (91) 100 03/05/19 22:52 85 21 40 03/05/19 22:00 86 21 116/66 (83) 100 03/05/19 21:02 88 23 40 03/05/19 21:00 89 25 109/59 (76) 100 03/05/19 20:00 40 03/05/19 20:00 98.0 93 25 136/72 (93) 99 03/05/19 20:00 Mechanical Ventilator 03/05/19 19:13 95 25 97 Mechanical Ventilator 40 03/05/19 19:10 90 16 40 03/05/19 19:00 89 25 115/70 (85) 99 03/05/19 18:56 88 27 99 Mechanical Ventilator 40 03/05/19 18:00 71 23 130/60 (83) 100 03/05/19 17:00 70 16 132/71 (91) 100 03/05/19 16:46 69 17 40 03/05/19 16:00 98.2 68 17 143/69 (93) 100 03/05/19 16:00 Mechanical Ventilator 03/05/19 16:00 40 03/05/19 16:00 69 03/05/19 15:00 73 24 156/68 (97) 100 03/05/19 14:33 75 19 40 Intake and Output 03/05/19 03/06/19 19:00 07:00 Intake Total 890 ml 560 ml Output Total 100 ml 180 ml Balance 790 ml 380 ml Intake Free Water 200 ml 120 ml IV Total 210 ml Tube Feeding 480 ml 440 ml Stool Total 100 ml 180 ml Laboratory Tests 03/06/19 03:50: White Blood Count 9.6, Red Blood Count 3.12L, Hemoglobin 10.1L, Hematocrit 30.9L , Mean Corpuscular Volume 99, Mean Corpuscular Hemoglobin 32.3H, Mean Corpuscular Hemoglobin Concent 32.7, Red Cell Distribution Width 17.7H, Platelet Count 288, Mean Platelet Volume 5.7L, Neutrophils (%) (Auto) 83.6H, Lymphocytes (%) (Auto) 6.8L, Monocytes (%) (Auto) 6.8, Eosinophils (%) (Auto) 1.4, Basophils (%) (Auto) 1.5, Sodium Level 132L, Potassium Level 3.8, Chloride Level 93L, Carbon Dioxide Level 29, Anion Gap 10, Blood Urea Nitrogen 38H, Creatinine 2.8H, Estimat Glomerular Filtration Rate , Glucose Level 237H, Calcium Level 9.6 03/06/19 11:35: Sodium Level 133L, Potassium Level 3.6, Chloride Level 93L, Carbon Dioxide Level 33H, Anion Gap 7, Blood Urea Nitrogen 45H, Creatinine 3.1H, Estimat Glomerular Filtration Rate , Glucose Level 211H, Calcium Level 9.6 Height (Feet): 5 Height (Inches): 3.00 Weight (Pounds): 140 Objective Intubated, on vent. CV RR Lungs B cracles+ wheezes. Abd SNT. BS + E No CCE Raul Cannon MD Mar 06, 2019 14:32
[2019-03-06] MEDS ORDERED: Heparin Sod 1000 units/ml 10ml IV PRN (14:34)
--- NOTE | 2019-03-06 14:49 | NUR ---
PT,S SEEN BY MICHAEL PULIDO WITH ORDERS [facility] UNIT NOTIFEID TODAYS HD WEMADHAVI PROTOCOL MELISSA ,<5MIN
--- NOTE | 2019-03-06 15:00 | NUR ---
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 Patient is currently intubated with tube size 7.5/25cm at lower lip. Patients settings are as follows. AC 14, 400tv, 40% FiO2 and peep of 5. Patient has an GT and receiving Nepro at 40ml/hr. HR is 93 SR, 132/66, RR 19, Spo2 100%. Patient does have a rectal tube that has black/greenish liquid diarrhea. Patient is anuric. Patient has multiple wounds, see WCP. Patient has L UA AV shunt bruit and thrill noted. Patient is on bilateral soft wrist restrains. SCDs applied.
--- NOTE | 2019-03-06 17:00 | NUR ---
NURSE NOTES: HD nurse at bedside setting up dialyzer for HD right now. VSS no fever.
--- NOTE | 2019-03-06 17:46 | Diagnostic Imaging Report ---
Indication: Dyspnea Comparison: 02/23/2019 A single view chest radiograph was obtained. Findings: Endotracheal tube is satisfactory in position. Pulmonary vascular congestion demonstrated. Heart is enlarged. Left pleural effusion suspected on the current exam. IMPRESSION: CHF. Endotracheal tube in good position
--- NOTE | 2019-03-06 18:00 | NUR ---
NURSE NOTES: Accucheck was 200. Coverage provided. Dialysis is finished. HD nurse removed 2000ml from patient. Patient tolerated well. BP has remained stable.
--- NOTE | 2019-03-06 19:28 | Pulmonolgy Critical Care Note ---
Critical Care - Asmt/Plan Assessment/Plan: Pulmonary CCM Progress Note Assessment/Plan 1. acute respiratory failure 2. End-stage renal failure, on dialysis. 3. COPD. 4. Schizophrenia. 5. Pulmonary edema, due to overload 6. Anemia of chronic kidney disease. 7. Sick sinus syndrome. 8. diabetes mellitus. PLAN acid base adequate vent noted and settings reviewed weaning trial as tolerated, sedation minimized titrate oxygen as able HD with UF transfuse ? gi bleed monitor fluid status and imaging continue supportive care nutrition as tolerated follow up for change medications/laboratory data/nursing notes/ICU care reviewed in detail note reviewed and edited care discussed with RN and RT ICU time spent 45 minutes Subjective ROS Limited/Unobtainable: Yes Allergies: Coded Allergies: No Known Allergies (Unverified , 05/11/18) Subjective care noted on oxygen on vent respiratory noted no distress ICU care reviewed Objective Vital Signs Noted Objective WDWN on vent ETT in place reduced breath sounds bilaterally without rhonchi or wheeze [id number] without MRG NABS nontender no HSM no CC mild edema nonfocal and sedated reviewed and edited Microbiology Date/Time Source Procedure Growth Status 02/23/19 04:00 Sputum Gram Stain - Final Resulted 02/23/19 04:00 Sputum Sputum Culture - Preliminary NORMAL UPPER RESPIRATORY SILVER PRESENT Resulted 02/23/19 04:50 Stool Clostridium difficile Toxin Assay - Final Complete Laboratory Tests Noted Critical Care - Objective Last 24 Hour Vital Signs Date Time Temp Pulse Resp B/P (MAP) Pulse Ox O2 Delivery O2 Flow Rate FiO2 03/06/19 19:25 108 14 100 Mechanical Ventilator 40 03/06/19 19:09 97 25 99 Mechanical Ventilator 40 03/06/19 19:08 97 25 40 03/06/19 19:00 105 18 111/63 (79) 100 03/06/19 18:00 111 22 147/80 (102) 100 03/06/19 17:00 94 20 126/66 (86) 95 03/06/19 16:50 86 26 40 03/06/19 16:00 86 03/06/19 16:00 Mechanical Ventilator 03/06/19 16:00 40 03/06/19 16:00 98.2 82 16 145/69 (94) 93 03/06/19 15:36 84 21 40 03/06/19 15:00 82 20 151/70 (97) 100 03/06/19 14:00 81 22 137/67 (90) 100 03/06/19 13:00 97.7 81 22 129/60 (83) 100 03/06/19 12:55 76 14 100 Mechanical Ventilator 40 03/06/19 12:48 75 18 98 Mechanical Ventilator 40 03/06/19 12:48 75 23 40 03/06/19 12:00 78 03/06/19 12:00 83 24 128/62 (84) 99 03/06/19 12:00 Mechanical Ventilator 03/06/19 12:00 40 03/06/19 11:00 78 29 130/72 (91) 99 03/06/19 10:43 83 23 40 03/06/19 10:00 85 23 138/70 (92) 99 03/06/19 09:00 88 30 131/68 (89) 100 03/06/19 08:47 88 29 40 40 03/06/19 08:45 89 03/06/19 08:13 79 148/74 03/06/19 08:12 148/74 03/06/19 08:00 84 03/06/19 08:00 88 17 148/74 (98) 100 03/06/19 08:00 40 03/06/19 08:00 Mechanical Ventilator 03/06/19 07:00 98.0 87 18 140/90 (107) 100 03/06/19 07:00 85 14 100 Mechanical Ventilator 40 03/06/19 06:54 87 21 97 Mechanical Ventilator 40 03/06/19 06:49 79 26 40 03/06/19 06:00 79 17 140/63 (88) 100 03/06/19 05:22 80 19 40 03/06/19 04:00 Mechanical Ventilator 03/06/19 04:00 98.4 80 18 143/78 (99) 100 03/06/19 04:00 40 03/06/19 04:00 81 03/06/19 03:00 81 17 132/63 (86) 100 03/06/19 02:52 85 19 40 03/06/19 02:00 82 17 123/59 (80) 100 03/06/19 01:13 90 23 99 Mechanical Ventilator 40 03/06/19 01:00 84 20 119/57 (77) 100 03/06/19 00:57 86 22 98 Mechanical Ventilator 40 03/06/19 00:55 88 17 40 03/06/19 00:00 Mechanical Ventilator 03/06/19 00:00 98.4 84 20 131/68 (89) 100 03/06/19 00:00 40 03/06/19 00:00 84 03/05/19 23:00 83 20 139/67 (91) 100 03/05/19 22:52 85 21 40 03/05/19 22:00 86 21 116/66 (83) 100 03/05/19 21:02 88 23 40 03/05/19 21:00 89 25 109/59 (76) 100 03/05/19 20:00 40 03/05/19 20:00 98.0 93 25 136/72 (93) 99 03/05/19 20:00 Mechanical Ventilator Accucheck: 200 Critical Care - Subjective ROS Limited/Unobtainable: No FI02: 40 Vent Support Breath Rate: 14 Vent Support Mode: AC Vent Tidal Volume: 400 Sputum Amount: Small PEEP: 5.0 PIP: 39 Tube Feeding Amount: 40 I&O: Intake and Output 03/05/19 03/06/19 19:00 07:00 Intake Total 890 ml 615 ml Output Total 100 ml 180 ml Balance 790 ml 435 ml Intake Free Water 200 ml 120 ml IV Total 210 ml 55 ml Tube Feeding 480 ml 440 ml Stool Total 100 ml 180 ml ET-Tube: 7.5 ET Position: 23 Wilmer Palacios MD Mar 06, 2019 19:28
--- NOTE | 2019-03-06 20:00 | NUR ---
NURSE NOTES: Patient repositioned and given oral care. G-tube flushed. VSS. Patient however is agitated.
[2019-03-06] MEDS: Epoetin Alfa-EPBX(ESRD on dialysis)10,000 unit/ml vial SUBQ SCH (21:16)
--- NOTE | 2019-03-06 22:00 | NUR ---
NURSE NOTES: Dr. Sky at bedside assessing patient. Dr. Palacios ordered for sputum culture to be done, and to have feedings stopped at 0400 6/8 for weaning in the morning.
[2019-03-07] VITALS (24 sets, daily range): BP systolic 93–146; BP diastolic 47–100
--- NOTE | 2019-03-07 | NUR ---
NURSE NOTES: Patient given oral care and changed new pads. IV lines have infiltrated from patient moving too much. New IV inserted at R FA 22G. BP have been stable throughout shift. No fevers. Rectal tube remains intact and stool continues to be liquid greenish/black.
[2019-03-07] MEDS: Sucralfate 1gm tab GT SCH ×4 (00:01→17:20)
[2019-03-07] MEDS: NovoLOG Insulin Flexpen SUBQ SCH ×4 (00:02→17:32)
[2019-03-07] MEDS: Albuterol/Ipratropium 3ml neb HHN SCH ×4 (01:10→19:15)
--- NOTE | 2019-03-07 02:00 | NUR ---
NURSE NOTES: Patient given oral care again and suctioned. Patient pools alot of secretions inside oral cavity. No acute changes at this time.
[2019-03-07] MEDS: Carvedilol 6.25mg Tab GT SCH ×3 (03:27→21:47)
--- NOTE | 2019-03-07 04:00 | NUR ---
NURSE NOTES: Feed placed on hold for weaning trials in the morning.
--- NOTE | 2019-03-07 04:30 | Progress Note ---
DATE: 03/05/2019 CARDIOLOGY PROGRESS NOTE Late entry for 03/05/2019. SUBJECTIVE: The patient remains on ventilator support. Weaning has been unsuccessful. She continues to require hemodialysis and ultrafiltration with ongoing issues regarding heart failure. OBJECTIVE: VITAL SIGNS: Blood pressure 122/54 to 140/62, heart rate 60s to 70s, and respiratory rate 17 to 22. GENERAL: The patient is afebrile. LUNGS: Coarse breath sounds. Scattered rales. HEART: Regular rhythm and rate. Normal S1, S2. A 1/6 systolic murmur at apex. ABDOMEN: Soft. EXTREMITIES: No edema. IMPRESSION: 1. Respiratory failure. 2. Acute on chronic systolic congestive heart failure. 3. Hypertensive heart disease. 4. Insulin-requiring diabetes. 5. Healthcare-acquired pneumonia. PLAN: 1. Hemodialysis with additional ultrafiltration. 2. Continue titrating anti-failure regimen. 3. Ventilator support with weaning. 4. DVT and stress ulcer prophylaxis. Wilmer Hoyos M.D. DR: ESSIE JOB#: [id number] CC:
--- NOTE | 2019-03-07 04:30 | Progress Note ---
DATE: 03/06/2019 CARDIOLOGY PROGRESS NOTE SUBJECTIVE: Continued effort with weaning. Ongoing hemodialysis with ultrafiltration per Jmcuzy-Ewggcriee-Xgzrbj schedule. OBJECTIVE: VITAL SIGNS: Blood pressure 126/78, heart rate 97, and respirations 24. LUNGS: Few rhonchi and rales. HEART: Regular rhythm and rate. Normal S1, S2. ABDOMEN: Soft. EXTREMITIES: Trace edema. DIAGNOSTIC DATA: Chest x-ray yesterday revealed congestive heart failure with endotracheal tube in location. Venous duplex on 03/05/19 was negative for DVT. PLAN: 1. Continue successive ultrafiltration sessions. 2. Beta-sima added. Wilmer Hoyos M.D. DR: ESSIE JOB#: [id number] CC: SUSAN
[2019-03-07] MEDS: Piperacillin/Tazobactam 2.25 GM in D5W 55 ML IVPB SCH ×3 (05:29→21:44)
--- NOTE | 2019-03-07 06:00 | NUR ---
NURSE NOTES: Patient is awake, and sometimes becomes agitated and restless. Vitals have remained stable, no fevers overnight. Lots of thick clear/white oral secretions suctioned and deep suctioned also. Sputum cultures already sent. Feeds remains off for weaning.
[2019-03-07 06:51] LABS: ANION GAP 12 mmol/L (5-15); BLOOD UREA NITROGEN 50 mg/dL (7-18); CALCIUM 10.4 MG/DL (8.5-10.1); CARBON DIOXIDE 30 MMOL/L (21-32); CHLORIDE 94 MMOL/L (98-107); PHOSPHORUS 4.2 MG/DL (2.5-4.9); POTASSIUM 3.6 MMOL/L (3.5-5.1); SODIUM 136 MMOL/L (136-145)
[2019-03-07 07:00] LABS: HEMATOCRIT 34.6 % (37.0-47.0); HEMOGLOBIN 11.2 G/DL (12.0-16.0); MEAN CORPUSCULAR VOLUME 98 FL (80-99); PLATELET COUNT 356 K/UL (150-450); RED BLOOD COUNT 3.53 M/UL (4.20-5.40); RED CELL DISTRIBUTION WIDTH 17.8 % (11.6-14.8)
--- NOTE | 2019-03-07 07:30 | NUR ---
NURSE NOTES: Endorsement received from WILIAM CALDWELL. spontaneous eye opening, . pupils 3mm brisk. Orally intubated with ET 7.5, 25 lip line. AC 14, VT 400, PEEP5 40% FiO2. diminished breath sounds bilateral on auscultation. secretions thin, white. GT, abdomen flat, bowel sounds hypoactive. rectal tube draining dark brown stool, loose. Nepro @40 ml/hr. No residual.pt anuric. GIANNI AV Fistula. shunt bruit and thrill noted. Skin-see assessment. bilateral soft wrist restraints in place.SCDs applied. On P200 mattress. Head of bed elevated >30. Locked and in low position. Contact precautions in place. Will continue to monitor.
[2019-03-07] MEDS: Minoxidil 2.5mg tab GT SCH (08:29)
[2019-03-07] MEDS: Heparin 5000 units/ml inj SUBQ SCH ×2 (08:35→21:49)
--- NOTE | 2019-03-07 09:14 | NUR ---
RESPIRATORY NOTE: Attempted to wean patient on CPAP with PS8. Patient RR elevated to high 30's for longer than [address] back on AC 14 400 40% +5.
--- NOTE | 2019-03-07 10:00 | NUR ---
NURSE NOTES: Patient repositioned and given oral care. G-tube flushed. VSS.
--- NOTE | 2019-03-07 10:06 | Nephrology Progress Note ---
Assessment/Plan Plan Respiratory Failure due to intractable CHF! Had 3 successive days of HD with UF of 2-3 L each. Off sedatives. Should be weanable. SULMA Ramirez. Trying to avoid trach! Subjective Subjective In ICU. On vent. Had 3 successive days of HD with UF of 2-3 L each. Off sedatives. Objective Objective Last 24 Hour Vital Signs Date Time Temp Pulse Resp B/P (MAP) Pulse Ox O2 Delivery O2 Flow Rate FiO2 03/07/19 09:09 93 03/07/19 09:07 93 20 40 03/07/19 08:31 94 112/57 03/07/19 08:30 94 112/51 03/07/19 08:29 112/51 03/07/19 07:31 98 14 100 Mechanical Ventilator 40 03/07/19 07:19 96 16 98 Mechanical Ventilator 40 03/07/19 07:16 96 22 40 03/07/19 07:00 100 21 130/56 (80) 98 03/07/19 06:00 89 21 118/50 (72) 98 03/07/19 05:00 91 21 118/58 (78) 96 03/07/19 04:53 90 21 40 03/07/19 04:00 91 03/07/19 04:00 97.4 91 14 138/60 (86) 99 03/07/19 04:00 40 03/07/19 04:00 Mechanical Ventilator 03/07/19 03:27 95 104/59 03/07/19 03:00 94 22 146/85 (105) 95 03/07/19 02:47 95 22 40 03/07/19 02:00 99 18 108/51 (70) 95 03/07/19 01:21 90 18 99 Mechanical Ventilator 40 03/07/19 01:10 86 20 97 Mechanical Ventilator 40 03/07/19 01:09 87 20 40 03/07/19 01:00 92 25 122/100 (107) 99 03/07/19 00:00 98.0 93 24 102/66 (78) 99 03/07/19 00:00 40 03/07/19 00:00 Mechanical Ventilator 03/06/19 23:00 96 20 104/59 (74) 100 03/06/19 22:31 96 20 40 03/06/19 22:00 97 24 126/78 (94) 100 03/06/19 21:00 102 24 40 03/06/19 21:00 103 22 137/70 (92) 100 03/06/19 20:00 40 03/06/19 20:00 Mechanical Ventilator 03/06/19 20:00 97.9 109 18 150/72 (98) 100 03/06/19 20:00 109 03/06/19 19:25 108 14 100 Mechanical Ventilator 40 03/06/19 19:09 97 25 99 Mechanical Ventilator 40 03/06/19 19:08 97 25 40 03/06/19 19:00 105 18 111/63 (79) 100 03/06/19 18:00 111 22 147/80 (102) 100 03/06/19 17:00 94 20 126/66 (86) 95 03/06/19 16:50 86 26 40 03/06/19 16:00 86 03/06/19 16:00 Mechanical Ventilator 03/06/19 16:00 40 03/06/19 16:00 98.2 82 16 145/69 (94) 93 03/06/19 15:36 84 21 40 03/06/19 15:00 82 20 151/70 (97) 100 03/06/19 14:00 81 22 137/67 (90) 100 03/06/19 13:00 97.7 81 22 129/60 (83) 100 03/06/19 12:55 76 14 100 Mechanical Ventilator 40 03/06/19 12:48 75 18 98 Mechanical Ventilator 40 03/06/19 12:48 75 23 40 03/06/19 12:00 78 03/06/19 12:00 83 24 128/62 (84) 99 03/06/19 12:00 Mechanical Ventilator 03/06/19 12:00 40 03/06/19 11:00 78 29 130/72 (91) 99 03/06/19 10:43 83 23 40 Intake and Output 03/06/19 03/07/19 19:00 07:00 Intake Total 675 ml 430 ml Output Total 4000 ml Balance 675 ml -3570 ml IV Total 155 ml 110 ml Tube Feeding 520 ml 320 ml Hemodialysis UF 4000 ml Laboratory Tests 03/06/19 11:35: Sodium Level 133L, Potassium Level 3.6, Chloride Level 93L, Carbon Dioxide Level 33H, Anion Gap 7, Blood Urea Nitrogen 45H, Creatinine 3.1H, Estimat Glomerular Filtration Rate , Glucose Level 211H, Calcium Level 9.6 03/07/19 06:01: Sodium Level 136, Potassium Level 3.6, Chloride Level 94L, Carbon Dioxide Level 30, Anion Gap 12, Blood Urea Nitrogen 50H, Creatinine 3.0H, Estimat Glomerular Filtration Rate , Glucose Level 150H, Calcium Level 10.4H, White Blood Count 14.0H, Red Blood Count 3.53L, Hemoglobin 11.2L, Hematocrit 34.6L, Mean Corpuscular Volume 98, Mean Corpuscular Hemoglobin 31.7H, Mean Corpuscular Hemoglobin Concent 32.3, Red Cell Distribution Width 17.8H, Platelet Count 356, Mean Platelet Volume 5.7L, Neutrophils (%) (Auto) , Lymphocytes (%) (Auto) , Monocytes (%) (Auto) , Eosinophils (%) (Auto) , Basophils (%) (Auto) , Differential Total Cells Counted 100, Neutrophils % (Manual) 86H, Lymphocytes % (Manual) 8L, Monocytes % (Manual) 6, Eosinophils % (Manual) 0, Basophils % ( Manual) 0, Band Neutrophils 0, Platelet Estimate Adequate, Platelet Morphology Normal, Anisocytosis 1+, Macrocytosis 1+, Phosphorus Level 4.2, Magnesium Level 2.6H Height (Feet): 5 Height (Inches): 3.00 Weight (Pounds): 105 Objective Intubated, on vent. CV RR Lungs B relatively CTA! Abd SNT. BS + E No CCE Raul Cannon MD Mar 07, 2019 10:06
--- NOTE | 2019-03-07 12:00 | NUR ---
NURSE NOTES: Patient given oral care and changed new pads. New IV inserted at Rt lower FA 22G and wrist. BP have been stable throughout shift. No fevers. Rectal tube remains intact. accuchk 211, novlog given 4units coverage.
--- NOTE | 2019-03-07 14:33 | NUR ---
NURSE NOTES: Patient given oral care and suctioned. Patient pools secretions in oral cavity. No acute changes at this time.
--- NOTE | 2019-03-07 16:00 | NUR ---
NURSE NOTES: Patient is awake, and sometimes becomes agitated and restless. Vitals have remained stable,
[2019-03-07] MEDS ORDERED: NS 275ml ONE (16:23)
[2019-03-07] MEDS ORDERED: Sterile Water Irrig 1000ml IRRIG ONE (16:23)
--- NOTE | 2019-03-07 18:41 | Pulmonolgy Critical Care Note ---
Critical Care - Asmt/Plan Assessment/Plan: Pulmonary CCM Progress Note Assessment/Plan 1. acute respiratory failure 2. End-stage renal failure, on dialysis. 3. COPD. 4. Schizophrenia. 5. Pulmonary edema, due to overload 6. Anemia of chronic kidney disease. 7. Sick sinus syndrome. 8. diabetes mellitus. PLAN acid base adequate vent noted and settings reviewed weaning trial as tolerated, sedation minimized - did not tolerate weaning today titrate oxygen as able HD with UF transfuse ? gi bleed monitor fluid status and imaging continue supportive care nutrition as tolerated follow up for change medications/laboratory data/nursing notes/ICU care reviewed in detail note reviewed and edited care discussed with RN and RT ICU time spent 45 minutes Subjective ROS Limited/Unobtainable: Yes Allergies: Coded Allergies: No Known Allergies (Unverified , 05/11/18) Subjective care noted on oxygen on vent respiratory noted no distress ICU care reviewed Objective Vital Signs Noted Objective WDWN on vent ETT in place reduced breath sounds bilaterally without rhonchi or wheeze [id number] without MRG NABS nontender no HSM no CC mild edema nonfocal and sedated reviewed and edited Microbiology Date/Time Source Procedure Growth Status 02/23/19 04:00 Sputum Gram Stain - Final Resulted 02/23/19 04:00 Sputum Sputum Culture - Preliminary NORMAL UPPER RESPIRATORY SILVER PRESENT Resulted 02/23/19 04:50 Stool Clostridium difficile Toxin Assay - Final Complete Laboratory Tests Noted Critical Care - Objective Last 24 Hour Vital Signs Date Time Temp Pulse Resp B/P (MAP) Pulse Ox O2 Delivery O2 Flow Rate FiO2 03/07/19 18:00 76 18 105/65 (78) 97 03/07/19 17:00 78 16 115/51 (72) 99 03/07/19 16:49 80 19 40 03/07/19 16:00 Mechanical Ventilator 03/07/19 16:00 40 03/07/19 16:00 99.1 80 16 108/66 (80) 85 03/07/19 16:00 78 03/07/19 15:00 86 21 122/59 (80) 72 03/07/19 14:53 87 21 40 03/07/19 14:00 85 21 124/75 (91) 63 03/07/19 13:10 83 15 94 Mechanical Ventilator 40 03/07/19 13:00 83 14 93/70 (78) 87 03/07/19 12:52 75 14 100 Mechanical Ventilator 40 03/07/19 12:50 75 15 40 03/07/19 12:00 85 03/07/19 12:00 40 03/07/19 12:00 Mechanical Ventilator 03/07/19 12:00 98.6 83 24 120/61 (80) 93 03/07/19 11:00 82 18 142/61 (88) 88 03/07/19 10:58 83 21 40 03/07/19 10:00 87 30 121/70 (87) 81 03/07/19 09:09 93 03/07/19 09:07 93 20 40 03/07/19 09:00 92 17 111/60 (77) 03/07/19 08:31 94 112/57 03/07/19 08:30 94 112/51 03/07/19 08:29 112/51 03/07/19 08:00 Mechanical Ventilator 03/07/19 08:00 98 03/07/19 08:00 98.5 91 19 106/51 (69) 03/07/19 08:00 40 03/07/19 07:31 98 14 100 Mechanical Ventilator 40 03/07/19 07:19 96 16 98 Mechanical Ventilator 40 03/07/19 07:16 96 22 40 03/07/19 07:00 100 21 130/56 (80) 98 03/07/19 06:00 89 21 118/50 (72) 98 03/07/19 05:00 91 21 118/58 (78) 96 03/07/19 04:53 90 21 40 03/07/19 04:00 91 03/07/19 04:00 97.4 91 14 138/60 (86) 99 03/07/19 04:00 40 03/07/19 04:00 Mechanical Ventilator 03/07/19 03:27 95 104/59 03/07/19 03:00 94 22 146/85 (105) 95 03/07/19 02:47 95 22 40 03/07/19 02:00 99 18 108/51 (70) 95 03/07/19 01:21 90 18 99 Mechanical Ventilator 40 03/07/19 01:10 86 20 97 Mechanical Ventilator 40 03/07/19 01:09 87 20 40 03/07/19 01:00 92 25 122/100 (107) 99 03/07/19 00:00 98.0 93 24 102/66 (78) 99 03/07/19 00:00 40 03/07/19 00:00 Mechanical Ventilator 03/06/19 23:00 96 20 104/59 (74) 100 03/06/19 22:31 96 20 40 03/06/19 22:00 97 24 126/78 (94) 100 03/06/19 21:00 102 24 40 03/06/19 21:00 103 22 137/70 (92) 100 03/06/19 20:00 40 03/06/19 20:00 Mechanical Ventilator 03/06/19 20:00 97.9 109 18 150/72 (98) 100 03/06/19 20:00 109 03/06/19 19:25 108 14 100 Mechanical Ventilator 40 03/06/19 19:09 97 25 99 Mechanical Ventilator 40 03/06/19 19:08 97 25 40 03/06/19 19:00 105 18 111/63 (79) 100 Micro: Microbiology Date/Time Source Procedure Growth Status 03/06/19 22:00 Sputum Gram Stain - Final Resulted 03/06/19 22:00 Sputum Sputum Culture Pending Resulted Accucheck: 199 Critical Care - Subjective ROS Limited/Unobtainable: Yes Condition: stable FI02: 40 Vent Support Breath Rate: 14 Vent Support Mode: AC Vent Tidal Volume: 400 Sputum Amount: Small PEEP: 5.0 PIP: 21 Tube Feeding Amount: 40 I&O: Intake and Output 03/06/19 03/07/19 19:00 07:00 Intake Total 675 ml 430 ml Output Total 4000 ml Balance 675 ml -3570 ml IV Total 155 ml 110 ml Tube Feeding 520 ml 320 ml Hemodialysis UF 4000 ml ET-Tube: 7.5 ET Position: 23 Wilmer Palacios MD Mar 07, 2019 18:41
--- NOTE | 2019-03-07 19:44 | NUR ---
HAND-OFF: Report given to JULIA. PT IN NO ACUTE DISTRES. ENDORSED PHOTOS OF BUTTOCKS
--- NOTE | 2019-03-07 19:50 | NUR ---
NURSE NOTES: Patient received from WILIAM Moreno. Patient observed bedside to be awake, alert and responsive to name only. Patient appears very restless and impulsive. Patient opens eyes spontaneously, tracks with her eyes and has BUE 4/5 muscle strength. Patient is being monitored on the patient monitor BP 112/51, HR 79, RR 17 SPO2 100%. Patient does not appear in any acute distress. Patient is orally intubated with ET 7.5, 25 at the lip line with vent settings AC 16, VT 400, +5 FIO2 40%. Upon auscultation patient has rhonchi with diminished breath sounds bilaterally. Patient has copious secretions. Oral care was performed. Patient has GT running Nepro @40 ml/hr. No residual with a 50 ml given. Patient is anuric. Patient has a GIANNI AV Fistula with bruit and thrill noted. Patient has BL soft wrist restraints for safety due to impulsivity. Patient has been known to pull at her ETT and lines. Pulses are palpable and skin is intact. Safety measures are place with bed locked in the lowest position, bed alarmed on a P200 mattress with HOB elevated and contact precautions in place. Will continue to monitor and follow plan of care.
--- NOTE | 2019-03-07 22:00 | NUR ---
NURSE NOTES: Dr Palacios assessed patient bedside. Discussed weaning protocol. Patient only weaned for a total of 10 min. Per MD wants ABG on CPAP tomorrow. Will attempt again on Saturday. Also wants AM CXR. Orders have been entered. Will continue to monitor and follow MD plan of care.
--- NOTE | 2019-03-07 22:50 | NUR ---
NURSE NOTES: Patient repositioned for comfort, patient does not appear in any acute distress. Will continue to monitor.
[2019-03-08] VITALS (24 sets, daily range): BP systolic 96–138; BP diastolic 38–93
--- NOTE | 2019-03-08 00:25 | NUR ---
NURSE NOTES: Patient observed bedside to be awake, alert and responsive to name only. Patient appears very restless and impulsive. Patient opens eyes spontaneously and tracks with her eyes. Patient is being monitored on the monitoring and evaluation advisor, VSS. Patient does not appear in any acute distress, patient is free from facial grimacing. Patient is orally intubated with ET 7.5, with vent settings AC 16, VT 400, +5 FIO2 40%. Oral care was performed. Patient has GT running Nepro @40 ml/hr. Patient is anuric. Patient has BL soft wrist restraints for safety due to impulsivity that are secured. Pulses are palpable and skin is intact. Safety measures are place with bed locked in the lowest position, bed alarmed, HOB elevated. Will continue to monitor and follow plan of care.
--- NOTE | 2019-03-08 00:45 | Progress Note ---
DATE: 03/07/2019 CARDIOLOGY PROGRESS NOTE SUBJECTIVE: The patient remains on ventilator. Weaning is limited. She has had several days of hemodialysis with 2 to 3 liters removed each time. She was started on beta-sima yesterday. OBJECTIVE: VITAL SIGNS: Blood pressure 115/51, pulse 78, and respirations 16. LUNGS: Bilateral rales. HEART: Regular rhythm and rate. Normal S1, S2. A 1/6 systolic murmur at apex. ABDOMEN: Soft. EXTREMITIES: No edema. IMPRESSION: 1. Respiratory failure. 2. Acute on chronic diastolic congestive heart failure. 3. Healthcare-acquired pneumonia. 4. Hypertensive heart disease. 5. Anemia of chronic kidney disease. 6. End-stage renal disease. PLAN: 1. Maintain hemoglobin above 8 g. 2. Continue titration of anti-failure and antihypertensive. 3. Continue weaning efforts. 4. Continue hemodialysis with aggressive ultrafiltration. Wilmer Hoyos M.D. DR: BIANCA JOB#: [id number] CC:
[2019-03-08] MEDS: Albuterol/Ipratropium 3ml neb HHN SCH ×4 (00:47→19:14)
[2019-03-08] MEDS: Sucralfate 1gm tab GT SCH ×5 (01:10→23:14)
[2019-03-08] MEDS: NovoLOG Insulin Flexpen SUBQ SCH ×5 (01:14→23:17)
--- NOTE | 2019-03-08 02:26 | NUR ---
NURSE NOTES: Patient was repositioned for comfort. Patient continues to be awake, alert and very restless. Patient is not in any acute distress. Will continue to monitor
[2019-03-08] MEDS: Piperacillin/Tazobactam 2.25 GM in D5W 55 ML IVPB SCH ×3 (05:35→20:56)
--- NOTE | 2019-03-08 07:20 | NUR ---
RESPIRATORY NOTE: Received pt on vent setting: AC 14-400ml- 40% peep 5. Pt is intubated with ETT 7.5 @23cm lips line, secure by anchor fast. Pt is restless,disoriented, eyes open but unable to follow simple commands. Breathing TX Duoneb and Mucomyst 10% given without any advert affects. Darren diminished B/S heard upon auscultation, endotracheal suctioned small amount of thick clear secretions and oral suctioned large amount of thick clear secretions without incident. Took OPA out to do oral care, then reposition the ETT and put OPA back into the mouth to prevent tube biting.Pt is resting comfortably in the bed, no SOB or resp distress noted. Alarms are set and audible, vent is plugged into the red outlet, ambu bag is at bedside. Will try to wean pt in the next vent check.Will continue to monitor.
--- NOTE | 2019-03-08 07:30 | NUR ---
NURSE NOTES: Endorsement received from WILIAM Echeverria. spontaneous eye opening, . pupils 3mm brisk. Orally intubated with ET 7.5, 25 lip line. AC 14, VT 400, PEEP5 40% FiO2. diminished breath sounds bilateral on auscultation. secretions thin, white. GT, abdomen flat, bowel sounds hypoactive. rectal tube draining dark brown stool, loose. Nepro @40 ml/hr on hold d/t prior medication administration.pt anuric. GIANNI AV Fistula. shunt bruit and thrill noted. Skin see assessment. bilateral soft wrist restraints in place.SCDs applied. On P200 mattress. Head of bed elevated >30. Locked and in low position. Contact precautions in place. Will continue to monitor.
--- NOTE | 2019-03-08 07:59 | NUR ---
RD ASSESSMENT & RECOMMENDATIONS SEE CARE ACTIVITY FOR COMPLETE ASSESSMENT DAILY ESTIMATED NEEDS: Needs based on ESRD/ HD, UNDERWEIGHT, WOUND, CRITICAL CARE/ 52.7kg 25-32 kcals/kg 5073-5896 total kcals 1.25-2 g protein/kg 66-105 g total protein Fluid per MD, on HD mL/kg . 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 * Increased kcal/prot needs R/T renal dysfunction, ESRD, wound healing, underweight status as evidenced by pt on HD, admitted w/ non-blanchable erythemas w/ partial thickness pressure injuries, refer to WC eval, low BMI per guidelines, pt @ 89% IBW. CURRENT TF:Nepro @ 40ml/hr x 22 hrs ENTERAL NUTRITION RECOMMENDATIONS: Nepro @ 40ml/hr x 22 hrs to provide 880ml, 1584kcal, 71g prot, 640ml free water * Maintain @ goal rate as tolerated * Hold 1 hr before and after Synthroid med * HOB over 30 degrees/ water flush per MD ADDITIONAL RECOMMENDATIONS: * Per SNF record: HT=66", AR=[id number] (02/09/19) -> RECALIBRATE BEDSCALE: fluctuating daily wts-> 127, 105, 140, 142# * Obtain dry wt post HD * Wound healing: continue Zeke 1pkt BID * Probiotics for diarrhea * Monitor BGs, need for long acting insulin .
--- NOTE | 2019-03-08 09:30 | NUR ---
RESPIRATORY NOTE: Attempted to wean pt on CPAP PS 10- peep 5- 40% FiO2. At first, pt is tolerating well, RR 20-25bpm, Vt 290-350ml, saturates at 91-93%. Then, RR increased to 37-40bpm, low Vt <200ml within 5 minutes. pt was agitated, SOB. Placed pt back on AC mode with the same previous setting. Pt is calming down, no SOB or resp distress noted at this time, RR back to 20s, [id number], saturates 91-93%. WILIAM Moreno made aware. Will continue to monitor.
--- NOTE | 2019-03-08 09:37 | Nephrology Progress Note ---
Assessment/Plan Plan Respiratory Failure due to intractable CHF! Had 3 successive days of HD with UF of 2-3 L each. Off sedatives. Should be weanable. SULMA Ramirez. Trying to avoid trach! Subjective Subjective In ICU. On vent. Had 3 successive days of HD with UF of 2-3 L each. Off sedatives. Objective Objective Last 24 Hour Vital Signs Date Time Temp Pulse Resp B/P (MAP) Pulse Ox O2 Delivery O2 Flow Rate FiO2 03/08/19 07:20 79 18 100 Mechanical Ventilator 40 03/08/19 07:04 80 18 100 Mechanical Ventilator 40 03/08/19 07:04 80 18 40 03/08/19 06:00 81 17 98/47 (64) 100 03/08/19 05:27 89 18 40 03/08/19 05:00 87 18 100/51 (67) 100 03/08/19 04:00 40 03/08/19 04:00 99.1 81 16 137/60 (85) 100 03/08/19 04:00 Mechanical Ventilator 03/08/19 04:00 88 03/08/19 03:35 85 21 40 03/08/19 03:00 87 18 138/93 (108) 100 03/08/19 02:00 84 17 114/87 (96) 100 03/08/19 01:07 82 19 100 Mechanical Ventilator 40 03/08/19 01:00 81 18 107/56 (73) 95 03/08/19 00:51 90 18 40 03/08/19 00:47 75 19 100 Mechanical Ventilator 40 03/08/19 00:46 75 15 40 03/08/19 00:00 98.2 86 18 113/47 (69) 96 03/08/19 00:00 Mechanical Ventilator 03/07/19 23:12 70 17 40 03/07/19 23:00 79 19 104/47 (66) 95 03/07/19 22:00 80 19 100/52 (68) 100 03/07/19 21:47 78 104/47 03/07/19 21:15 80 17 40 03/07/19 21:00 79 16 105/61 (76) 100 03/07/19 20:00 98.9 79 16 104/47 (66) 100 03/07/19 20:00 40 03/07/19 20:00 Mechanical Ventilator 03/07/19 20:00 84 03/07/19 19:26 82 15 99 Mechanical Ventilator 40 03/07/19 19:17 82 18 98 Mechanical Ventilator 40 03/07/19 19:15 80 16 40 03/07/19 19:00 79 17 112/51 (71) 100 03/07/19 18:00 76 18 105/65 (78) 97 03/07/19 17:00 78 16 115/51 (72) 99 03/07/19 16:49 80 19 40 03/07/19 16:00 Mechanical Ventilator 03/07/19 16:00 40 03/07/19 16:00 99.1 80 16 108/66 (80) 85 03/07/19 16:00 78 03/07/19 15:00 86 21 122/59 (80) 72 03/07/19 14:53 87 21 40 03/07/19 14:00 85 21 124/75 (91) 63 03/07/19 13:10 83 15 94 Mechanical Ventilator 40 03/07/19 13:00 83 14 93/70 (78) 87 03/07/19 12:52 75 14 100 Mechanical Ventilator 40 03/07/19 12:50 75 15 40 03/07/19 12:00 85 03/07/19 12:00 40 03/07/19 12:00 Mechanical Ventilator 03/07/19 12:00 98.6 83 24 120/61 (80) 93 03/07/19 11:00 82 18 142/61 (88) 88 03/07/19 10:58 83 21 40 03/07/19 10:00 87 30 121/70 (87) 81 Intake and Output 03/07/19 03/08/19 19:00 07:00 Intake Total 650 ml 825 ml Output Total 120 ml Balance 530 ml 825 ml IV Total 210 ml 110 ml Tube Feeding 320 ml 440 ml Other 120 ml 275 ml Stool Total 120 ml Height (Feet): 5 Height (Inches): 3.00 Weight (Pounds): 127 Objective Intubated, on vent. CV RR Lungs B relatively CTA! Abd SNT. BS + E No CCE Raul Cannon MD Mar 08, 2019 09:37
--- NOTE | 2019-03-08 09:39 | Infectious Diseases Prog Note ---
Assessment/Plan Assessment/Plan A; 1. Possible pneumonia that is improving. 2. Pleural effusions. 3. Congestive heart failure. 4. Renal failure, on dialysis. 5. Sick sinus syndrome. 6. Necrotizing esophagitis. 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 Acute respiratory failure PLAN: 1. Continue Zosyn & fluconazole Subjective ROS Limited/Unobtainable: Yes Respiratory: Reports: other - failed weaning Neurologic: Reports: confusion, other - on restraint Allergies: Coded Allergies: No Known Allergies (Unverified , 05/11/18) Objective Vital Signs Last 24 Hour Vital Signs Date Time Temp Pulse Resp B/P (MAP) Pulse Ox O2 Delivery O2 Flow Rate FiO2 03/08/19 07:20 79 18 100 Mechanical Ventilator 40 03/08/19 07:04 80 18 100 Mechanical Ventilator 40 03/08/19 07:04 80 18 40 03/08/19 06:00 81 17 98/47 (64) 100 03/08/19 05:27 89 18 40 03/08/19 05:00 87 18 100/51 (67) 100 03/08/19 04:00 40 03/08/19 04:00 99.1 81 16 137/60 (85) 100 03/08/19 04:00 Mechanical Ventilator 03/08/19 04:00 88 03/08/19 03:35 85 21 40 03/08/19 03:00 87 18 138/93 (108) 100 03/08/19 02:00 84 17 114/87 (96) 100 03/08/19 01:07 82 19 100 Mechanical Ventilator 40 03/08/19 01:00 81 18 107/56 (73) 95 03/08/19 00:51 90 18 40 03/08/19 00:47 75 19 100 Mechanical Ventilator 40 03/08/19 00:46 75 15 40 03/08/19 00:00 98.2 86 18 113/47 (69) 96 03/08/19 00:00 Mechanical Ventilator 03/07/19 23:12 70 17 40 03/07/19 23:00 79 19 104/47 (66) 95 03/07/19 22:00 80 19 100/52 (68) 100 03/07/19 21:47 78 104/47 03/07/19 21:15 80 17 40 03/07/19 21:00 79 16 105/61 (76) 100 03/07/19 20:00 98.9 79 16 104/47 (66) 100 03/07/19 20:00 40 03/07/19 20:00 Mechanical Ventilator 03/07/19 20:00 84 03/07/19 19:26 82 15 99 Mechanical Ventilator 40 03/07/19 19:17 82 18 98 Mechanical Ventilator 40 03/07/19 19:15 80 16 40 03/07/19 19:00 79 17 112/51 (71) 100 03/07/19 18:00 76 18 105/65 (78) 97 03/07/19 17:00 78 16 115/51 (72) 99 03/07/19 16:49 80 19 40 03/07/19 16:00 Mechanical Ventilator 03/07/19 16:00 40 03/07/19 16:00 99.1 80 16 108/66 (80) 85 03/07/19 16:00 78 03/07/19 15:00 86 21 122/59 (80) 72 03/07/19 14:53 87 21 40 03/07/19 14:00 85 21 124/75 (91) 63 03/07/19 13:10 83 15 94 Mechanical Ventilator 40 03/07/19 13:00 83 14 93/70 (78) 87 03/07/19 12:52 75 14 100 Mechanical Ventilator 40 03/07/19 12:50 75 15 40 03/07/19 12:00 85 03/07/19 12:00 40 03/07/19 12:00 Mechanical Ventilator 03/07/19 12:00 98.6 83 24 120/61 (80) 93 03/07/19 11:00 82 18 142/61 (88) 88 03/07/19 10:58 83 21 40 03/07/19 10:00 87 30 121/70 (87) 81 Height (Feet): 5 Height (Inches): 3.00 Weight (Pounds): 127 HEENT: other - orally intubated Respiratory/Chest: lungs clear, other - on ventilator Cardiovascular: normal rate, other - left arm AV graft Abdomen: soft, non tender, other Extremities: no edema Neurologic/Psychiatric: disoriented Musculoskeletal: atrophy Microbiology Date/Time Source Procedure Growth Status 03/06/19 22:00 Sputum Gram Stain - Final Resulted 03/06/19 22:00 Sputum Sputum Culture - Preliminary NO GROWTH Resulted Current Medications Medications (Trade) Dose Ordered Sig/Konrad Route PRN Reason Start Time Stop Time Status Last Admin Dose Admin Acetaminophen (Tylenol) 650 mg Q4H PRN GT Mild Pain/Temp > 100.5 02/20/19 18:00 03/16/19 17:59 03/03/19 16:50 Acetylcysteine (Mucomyst) 100 mg Q6HRT HHN 03/05/19 19:00 03/25/19 06:59 03/08/19 07:03 Albuterol/ Ipratropium (Albuterol/ Ipratropium) 3 ml Q6HRT HHN 03/05/19 19:00 03/10/19 18:59 03/08/19 07:03 Amlodipine Besylate (Norvasc) 10 mg DAILY GT 02/21/19 09:00 03/17/19 08:59 03/07/19 08:30 Carvedilol (Coreg) 6.25 mg EVERY 12 HOURS GT 03/07/19 02:00 04/06/19 01:59 03/07/19 21:47 Dextrose (Dextrose 50%) 25 ml Q30M PRN IV Hypoglycemia 02/20/19 17:45 03/16/19 15:14 Dextrose (Dextrose 50%) 50 ml Q30M PRN IV Hypoglycemia 02/20/19 17:45 03/16/19 15:14 Epoetin Chau (Epoetin Chau(ESRD on dialysis)) 10,000 unit SAT-SAT-SAT SUBQ 02/25/19 21:00 03/27/19 20:59 03/06/19 21:16 Fluconazole/ Sodium Chloride 100 ml @ 100 mls/hr Q24H IV 02/27/19 12:00 03/12/19 11:59 03/07/19 12:12 Heparin Sodium (Porcine) (Heparin 5000 units/ml) 5,000 units EVERY 12 HOURS SUBQ 02/20/19 21:00 03/16/19 20:59 03/07/19 21:49 Hydralazine HCl (Apresoline) 25 mg Q6HR PRN GT Sbp above 150 03/03/19 02:45 04/02/19 02:44 03/04/19 15:51 Insulin Aspart (NovoLOG) EVERY 6 HOURS SUBQ 02/20/19 18:00 03/16/19 16:29 03/08/19 06:52 Lansoprazole (Prevacid) 30 mg BID GT 03/01/19 09:00 03/31/19 08:59 03/07/19 17:20 Levothyroxine Sodium (Synthroid) 150 mcg DAILY@0630 GT 02/21/19 06:30 03/17/19 06:29 03/08/19 05:35 Metoclopramide HCl (Reglan) 5 mg Q6H PRN IVP Nausea & Vomiting 02/20/19 18:00 03/20/19 17:59 Minoxidil (Loniten) 2.5 mg DAILY GT 03/01/19 09:00 03/31/19 08:59 03/07/19 08:29 Ondansetron HCl (Zofran) 4 mg Q6H PRN IVP Nausea & Vomiting 02/20/19 18:00 03/19/19 17:59 Piperacillin Sod/ Tazobactam Sod 2.25 gm/Dextrose 55 ml @ 110 mls/hr Q8HR IVPB 02/26/19 22:00 03/12/19 21:59 03/08/19 05:35 Sucralfate (Carafate) 1 gm Q6HR GT 02/25/19 12:00 03/27/19 11:59 03/08/19 05:35 Kaden Aguilar MD Mar 08, 2019 09:38
--- NOTE | 2019-03-08 10:20 | NUR ---
NURSE NOTES: received call from MD Palacios. requested pt have ABG during weaning.
--- NOTE | 2019-03-08 10:29 | Diagnostic Imaging Report ---
EXAM: XR Chest, 1 View CLINICAL HISTORY: F/U TECHNIQUE: Frontal view of the chest. COMPARISON: Chest x-rays dated 03/05/19 FINDINGS: Lungs: No significant change in mild pulmonary vascular congestion. Subsegmental atelectasis in the medial left lung base. The lungs otherwise appear clear. Pleural space: Unremarkable. The costophrenic angles are sharp. No visible pneumothorax. Heart: Unremarkable. No cardiomegaly. Mediastinum: Unremarkable. Bones/joints: Unremarkable. Tubes, lines and devices: Endotracheal tube tip 3.8 Cm above the jack. Telemetry leads overlie the thorax. IMPRESSION: 1. No significant change in mild pulmonary vascular congestion. 2. Subsegmental atelectasis in the medial left lung base.
[2019-03-08] MEDS: Minoxidil 2.5mg tab GT SCH (10:39)
[2019-03-08] MEDS: Carvedilol 6.25mg Tab GT SCH ×2 (10:40→20:55)
[2019-03-08] MEDS: Heparin 5000 units/ml inj SUBQ SCH ×2 (10:46→20:56)
--- NOTE | 2019-03-08 10:50 | NUR ---
NURSE NOTES: Patient repositioned and given oral care. G-tube flushed. VSS.
--- NOTE | 2019-03-08 12:00 | NUR ---
NURSE NOTES: Patient given oral care and changed new pads. BP have been stable throughout shift. No fevers. Rectal tube remains intact. accuchk 199, novlog given 6units coverage.
--- NOTE | 2019-03-08 14:20 | NUR ---
NURSE NOTES: Patient repositioned and given oral care. G-tube flushed. VSS.
--- NOTE | 2019-03-08 18:52 | NUR ---
NURSE NOTES: Received call from close friend named Sanjay, asked about pt health, was informed about HiPPA, was informed that if want to speak with MD will need to be visiting pt. can not give info about pt unless authorized. will try and see pt soon.
--- NOTE | 2019-03-08 18:53 | Pulmonolgy Critical Care Note ---
Critical Care - Asmt/Plan Assessment/Plan: Pulmonary CCM Progress Note Assessment/Plan 1. acute respiratory failure 2. End-stage renal failure, on dialysis. 3. COPD. 4. Schizophrenia. 5. Pulmonary edema, due to overload 6. Anemia of chronic kidney disease. 7. Sick sinus syndrome. 8. diabetes mellitus. PLAN acid base adequate vent noted and settings reviewed weaning trial as tolerated, sedation minimized - did not tolerate weaning again today titrate oxygen as able HD with UF transfuse ? gi bleed monitor fluid status and imaging continue supportive care nutrition as tolerated follow up for change medications/laboratory data/nursing notes/ICU care reviewed in detail note reviewed and edited care discussed with RN and RT ICU time spent 45 minutes Subjective ROS Limited/Unobtainable: Yes Allergies: Coded Allergies: No Known Allergies (Unverified , 05/11/18) Subjective care noted on oxygen on vent respiratory noted no distress ICU care reviewed Objective Vital Signs Noted Objective WDWN on vent ETT in place reduced breath sounds bilaterally without rhonchi or wheeze [id number] without MRG NABS nontender no HSM no CC mild edema nonfocal and sedated reviewed and edited Microbiology Date/Time Source Procedure Growth Status 02/23/19 04:00 Sputum Gram Stain - Final Resulted 02/23/19 04:00 Sputum Sputum Culture - Preliminary NORMAL UPPER RESPIRATORY SILVER PRESENT Resulted 02/23/19 04:50 Stool Clostridium difficile Toxin Assay - Final Complete Laboratory Tests Noted Critical Care - Objective Last 24 Hour Vital Signs Date Time Temp Pulse Resp B/P (MAP) Pulse Ox O2 Delivery O2 Flow Rate FiO2 03/08/19 17:01 81 22 40 03/08/19 16:00 Mechanical Ventilator 03/08/19 16:00 40 03/08/19 14:37 81 22 40 03/08/19 12:30 93 25 40 03/08/19 12:29 93 25 94 Mechanical Ventilator 40 03/08/19 12:16 96 14 91 Mechanical Ventilator 40 03/08/19 12:00 40 03/08/19 12:00 Mechanical Ventilator 03/08/19 12:00 90 20 136/69 (91) 55 03/08/19 11:19 80 03/08/19 11:00 86 20 96/61 (73) 90 03/08/19 10:51 87 22 40 03/08/19 10:41 89 110/56 03/08/19 10:40 89 110/56 6/9/19 10:39 110/56 03/08/19 10:00 90 21 106/52 (70) 92 03/08/19 09:30 83 20 40 03/08/19 09:30 91 03/08/19 09:27 88 37 40 03/08/19 09:00 91 21 112/53 (72) 94 03/08/19 08:00 98.2 82 18 102/51 (68) 96 03/08/19 08:00 40 03/08/19 08:00 Mechanical Ventilator 03/08/19 07:22 79 03/08/19 07:20 79 18 100 Mechanical Ventilator 40 03/08/19 07:04 80 18 100 Mechanical Ventilator 40 03/08/19 07:04 80 18 40 03/08/19 07:00 78 17 108/48 (68) 96 03/08/19 06:00 81 17 98/47 (64) 100 03/08/19 05:27 89 18 40 03/08/19 05:00 87 18 100/51 (67) 100 03/08/19 04:00 40 03/08/19 04:00 99.1 81 16 137/60 (85) 100 03/08/19 04:00 Mechanical Ventilator 03/08/19 04:00 88 03/08/19 03:35 85 21 40 03/08/19 03:00 87 18 138/93 (108) 100 03/08/19 02:00 84 17 114/87 (96) 100 03/08/19 01:07 82 19 100 Mechanical Ventilator 40 03/08/19 01:00 81 18 107/56 (73) 95 03/08/19 00:51 90 18 40 03/08/19 00:47 75 19 100 Mechanical Ventilator 40 03/08/19 00:46 75 15 40 03/08/19 00:00 98.2 86 18 113/47 (69) 96 03/08/19 00:00 Mechanical Ventilator 03/07/19 23:12 70 17 40 03/07/19 23:00 79 19 104/47 (66) 95 03/07/19 22:00 80 19 100/52 (68) 100 03/07/19 21:47 78 104/47 03/07/19 21:15 80 17 40 03/07/19 21:00 79 16 105/61 (76) 100 03/07/19 20:00 98.9 79 16 104/47 (66) 100 03/07/19 20:00 40 03/07/19 20:00 Mechanical Ventilator 03/07/19 20:00 84 03/07/19 19:26 82 15 99 Mechanical Ventilator 40 03/07/19 19:17 82 18 98 Mechanical Ventilator 40 03/07/19 19:15 80 16 40 03/07/19 19:00 79 17 112/51 (71) 100 Micro: Microbiology Date/Time Source Procedure Growth Status 03/06/19 22:00 Sputum Gram Stain - Final Resulted 03/06/19 22:00 Sputum Sputum Culture - Preliminary NO GROWTH Resulted Accucheck: 285 Critical Care - Subjective ROS Limited/Unobtainable: No FI02: 40 Vent Support Breath Rate: 14 Vent Support Mode: AC Vent Tidal Volume: 400 Sputum Amount: Small PEEP: 5.0 PIP: 17 Tube Feeding Amount: 40 I&O: Intake and Output 03/07/19 03/08/19 19:00 07:00 Intake Total 650 ml 965 ml Output Total 120 ml Balance 530 ml 965 ml IV Total 210 ml 110 ml Tube Feeding 320 ml 480 ml Other 120 ml 375 ml Stool Total 120 ml ET-Tube: 7.5 ET Position: 23 Wilmer Palacios MD Mar 08, 2019 18:53
--- NOTE | 2019-03-08 19:00 | NUR ---
NURSE NOTES: Patient received from Hailee SWAIN. Patient is awake, agitated and restless. Patient does have bilateral soft wrist restraints, Skin intact at wrist area and pulses are noted. Patient does track with eyes. Pulmonary congestion can be heard upon auscultation of the lungs. Patient is intubated with ETT size 7.5, 25cm at the lower lip AC 14, 400tv, 40% FiO2 and peep of 5. Patient has rectal tube with black/greenish colored liquid stool. Nepro at 40ml/hr via GT. Isolation for VRE rectum. Patient does have sacral wounds, on P200 mattress. R FA 22G TKO. SCDs are applied. Vitals are stable at the moment. Will continue to monitor.
--- NOTE | 2019-03-08 19:17 | NUR ---
RESPIRATORY NOTE: Received pt on AC 14, 400VT, 40%, PEEP +5. Pt intubated w/ ETT 7.5 @ 23cm lipline, secured by anchorfast. Pt awake/restless at times. Bite block in place as pt tends to bite down ETT. Both hands on soft restraints to prevent self-extubation. B/S deep. rhonchi/diminished, sxn small to moderate amounts of thick/thin, pale-yellow secretions. Vent plugged into red outlet, ambubag at bedside. Pt in no apparent distress at this time. Will continue to monitor pt.
--- NOTE | 2019-03-08 19:56 | NUR ---
HAND-OFF: Report given to Luis Miguel. pt in no acute distress.
--- NOTE | 2019-03-08 20:00 | NUR ---
NURSE NOTES: Patient was repositioned, flushed GT, suctioned and given oral care. Mouth block inplace. Vitals are stable, no fever. Will continue to monitor.
--- NOTE | 2019-03-08 20:30 | NUR ---
NURSE NOTES: Wound care pictures taken and uploaded.
--- NOTE | 2019-03-08 22:00 | NUR ---
NURSE NOTES: Repositioned patient. VS are stable, no fevers. HR remains sinus rhythm.
[2019-03-08] MEDS ORDERED: Tubing IV Secondary IV ONE (22:47)
--- NOTE | 2019-03-08 23:15 | Progress Note ---
CARDIOLOGY PROGRESS NOTE DATE: 03/08/2019 SUBJECTIVE: Condition is largely unchanged. She remains on hemodialysis with ultrafiltration on successive days. OBJECTIVE: VITAL SIGNS: Blood pressure ranging from 98/47 to 137/60, heart rate in the 80s. Monitored rhythm sinus. Respiratory rate 18. She is afebrile. T-max 99.1. GENERAL: Orally intubated. LUNGS: Bilateral rales. CARDIAC: Regular rhythm and rate. Normal S1, S2. ABDOMEN: Soft. EXTREMITIES: No edema. LABORATORY DATA: ABG today 7.42, 44, and 71. IMPRESSION: 1. Acute on chronic diastolic congestive heart failure. 2. Respiratory failure. 3. End-stage renal disease. 4. Healthcare-acquired pneumonia. PLAN: 1. Same therapy. 2. Beta-sima will be advanced. 3. Overall anti-failure regimen will be titrated as able to optimize hemodynamics. Wilmer Hoyos M.D. DR: AUGUSTA JOB#: [id number] CC:
[2019-03-09] VITALS (24 sets, daily range): BP systolic 86–126; BP diastolic 30–75
--- NOTE | 2019-03-09 | NUR ---
NURSE NOTES: Repositioned patient. Patient continues being agitated and restless. Oral was provided and suctioned performed. NAD at this time. Pillows were adjusted.
[2019-03-09] MEDS: Albuterol/Ipratropium 3ml neb HHN SCH ×4 (01:15→20:30)
--- NOTE | 2019-03-09 02:00 | NUR ---
NURSE NOTES: Repositioned and oral care given. VSS. NAD. No acute changes.
--- NOTE | 2019-03-09 04:00 | NUR ---
NURSE NOTES: Patient repositioned and given oral care. Patient was cleaned and applied new sacral dressing. No new changes. Will continue to monitor.
[2019-03-09] MEDS: Piperacillin/Tazobactam 2.25 GM in D5W 55 ML IVPB SCH ×3 (05:09→21:09)
[2019-03-09] MEDS: Sucralfate 1gm tab GT SCH ×4 (05:09→23:48)
[2019-03-09] MEDS: NovoLOG Insulin Flexpen SUBQ SCH ×4 (05:11→23:49)
--- NOTE | 2019-03-09 06:00 | NUR ---
NURSE NOTES: VSS, repositioned, oral care done, no new changes, patient is dry and clean.
[2019-03-09 06:38] LABS: HEMATOCRIT 35.1 % (37.0-47.0); HEMOGLOBIN 11.2 G/DL (12.0-16.0); MEAN CORPUSCULAR VOLUME 100 FL (80-99); PLATELET COUNT 430 K/UL (150-450); RED BLOOD COUNT 3.52 M/UL (4.20-5.40); RED CELL DISTRIBUTION WIDTH 17.6 % (11.6-14.8); WHITE BLOOD COUNT 20.5 K/UL (4.8-10.8)
[2019-03-09 07:09] LABS: ANION GAP 17 mmol/L (5-15); BLOOD UREA NITROGEN 125 mg/dL (7-18); CALCIUM 10.3 MG/DL (8.5-10.1); CARBON DIOXIDE 28 MMOL/L (21-32); CHLORIDE 96 MMOL/L (98-107); CREATININE 4.7 MG/DL (0.55-1.30); POTASSIUM 3.5 MMOL/L (3.5-5.1); SODIUM 140 MMOL/L (136-145)
--- NOTE | 2019-03-09 07:10 | NUR ---
RESPIRATORY- Received Patient on Vent settings ACVC RR 14, VT 400, FIO2 40%, PEEP +5. Patient is intubated with 7.5 ETT at 23 cm at the lip, secured with anchorfast. Bilateral rhonchi breath sounds heard throughout lung garza. Suctioned small amounts of maxwell/ white secretions orally and through the ET tube. Alarms are on and audible. Vent plugged into red outlet. Will continue to closely monitor throughout the day.
--- NOTE | 2019-03-09 07:15 | NUR ---
NURSE NOTES: Received pt from WILIAM Bolanos. patient is awake/disoriented. Orally intubated ETT 7.5/25cm at lip line, Vent settings AC 14/TV400/Fio2 40%/PEEP5, spo2 100%, RR 22. Copious thick secretions noted via ETT. NSR on air sampling and monitoring; HR 85. PEG running Nepro@40cc/hr, HOB 35 degrees, no residual. Abd flat, non-distended. Bilateral soft wrist restraints in place; skin intact and warm to touch. x2 RFA 22G patent and asymptomatic. AV shunt on left upper arm, positive for thrill and bruit. HD scheduled for today, IRC notified and confirmed. Bed locked, alarmed and in lowest position. Will continue plan of care.
[2019-03-09] MEDS: Carvedilol 6.25mg Tab GT SCH ×2 (08:36→20:06)
[2019-03-09] MEDS: Minoxidil 2.5mg tab GT SCH (08:36)
[2019-03-09] MEDS: Heparin 5000 units/ml inj SUBQ SCH ×2 (08:39→21:11)
--- NOTE | 2019-03-09 09:30 | NUR ---
NURSE NOTES: Flushed GT with 60cc free water. Turned and repositioned.
[2019-03-09] MEDS ORDERED: Heparin Sod 1000 units/ml 10ml IV PRN (09:45)
--- NOTE | 2019-03-09 10:03 | Nephrology Progress Note ---
Assessment/Plan Plan Respiratory Failure due to intractable CHF! Trying to wean off vent. Subjective Subjective In ICU. On vent. So far weaning trials unsuccessful. Objective Objective Last 24 Hour Vital Signs Date Time Temp Pulse Resp B/P (MAP) Pulse Ox O2 Delivery O2 Flow Rate FiO2 03/09/19 08:37 89 100/59 03/09/19 08:36 89 100/59 03/09/19 08:36 100/59 03/09/19 08:00 40 03/09/19 08:00 Mechanical Ventilator 03/09/19 07:06 89 14 100 Mechanical Ventilator 40 03/09/19 07:03 87 22 40 03/09/19 07:00 88 16 100/59 (73) 98 03/09/19 07:00 94 16 96 Mechanical Ventilator 40 03/09/19 06:00 86 25 104/75 (85) 98 03/09/19 05:10 91 18 40 03/09/19 05:00 92 28 118/63 (81) 98 03/09/19 04:00 97.8 98 19 109/62 (78) 100 03/09/19 04:00 40 03/09/19 04:00 Mechanical Ventilator 03/09/19 04:00 96 03/09/19 03:00 87 17 101/47 (65) 96 03/09/19 02:55 87 18 40 03/09/19 02:00 80 14 120/54 (76) 100 03/09/19 01:30 80 14 100 Mechanical Ventilator 40 03/09/19 01:15 80 20 97 Mechanical Ventilator 40 03/09/19 01:15 80 20 40 03/09/19 01:00 77 19 90/40 (57) 100 03/09/19 00:00 Mechanical Ventilator 03/09/19 00:00 98.3 76 17 89/42 (58) 100 03/09/19 00:00 77 03/09/19 00:00 40 03/08/19 23:06 74 18 40 03/08/19 23:00 73 19 110/38 (62) 100 03/08/19 22:00 82 21 110/55 (73) 97 03/08/19 21:15 89 23 40 03/08/19 21:00 85 21 112/54 (73) 94 03/08/19 20:55 86 106/52 03/08/19 20:00 40 03/08/19 20:00 88 03/08/19 20:00 Mechanical Ventilator 03/08/19 20:00 98.1 87 21 136/60 (85) 100 03/08/19 19:29 86 20 100 Mechanical Ventilator 40 03/08/19 19:14 82 20 100 Mechanical Ventilator 40 03/08/19 19:13 82 20 40 03/08/19 19:00 81 19 106/52 (70) 03/08/19 18:00 77 21 106/44 (64) 95 03/08/19 17:01 81 22 40 03/08/19 17:00 79 20 116/54 (74) 99 03/08/19 16:00 Mechanical Ventilator 03/08/19 16:00 79 03/08/19 16:00 98.9 79 22 109/46 (67) 85 03/08/19 16:00 40 03/08/19 15:00 79 21 102/49 (66) 96 03/08/19 14:37 81 22 40 03/08/19 14:00 94 23 117/57 (77) 76 03/08/19 13:00 98.7 92 21 123/60 (81) 77 03/08/19 12:30 93 25 40 03/08/19 12:29 93 25 94 Mechanical Ventilator 40 03/08/19 12:16 96 14 91 Mechanical Ventilator 40 03/08/19 12:00 40 03/08/19 12:00 Mechanical Ventilator 03/08/19 12:00 90 20 136/69 (91) 55 03/08/19 11:19 80 03/08/19 11:00 86 20 96/61 (73) 90 03/08/19 10:51 87 22 40 03/08/19 10:41 89 110/56 03/08/19 10:40 89 110/56 03/08/19 10:39 110/56 Intake and Output 03/08/19 03/09/19 18:59 06:59 Intake Total 930 ml 700 ml Output Total 450 ml Balance 480 ml 700 ml Intake Free Water 110 ml IV Total 210 ml 110 ml Tube Feeding 520 ml 480 ml Other 200 ml Stool Total 450 ml Laboratory Tests 03/09/19 05:29: White Blood Count 20.5H, Red Blood Count 3.52L, Hemoglobin 11.2L, Hematocrit 35.1L, Mean Corpuscular Volume 100H, Mean Corpuscular Hemoglobin 31.9H, Mean Corpuscular Hemoglobin Concent 32.0, Red Cell Distribution Width 17.6H, Platelet Count 430, Mean Platelet Volume 5.6L, Neutrophils (%) (Auto) , Lymphocytes (%) (Auto) , Monocytes (%) (Auto) , Eosinophils (%) (Auto) , Basophils (%) (Auto) , Differential Total Cells Counted 100, Neutrophils % ( Manual) 92H, Lymphocytes % (Manual) 5L, Monocytes % (Manual) 3, Eosinophils % ( Manual) 0, Basophils % (Manual) 0, Band Neutrophils 0, Platelet Estimate Adequate, Platelet Morphology Normal, Anisocytosis 1+, Macrocytosis 1+, Sodium Level 140, Potassium Level 3.5, Chloride Level 96L, Carbon Dioxide Level 28, Anion Gap 17H, Blood Urea Nitrogen 125H, Creatinine 4.7H, Estimat Glomerular Filtration Rate , Glucose Level 155H, Calcium Level 10.3H Height (Feet): 5 Height (Inches): 3.00 Weight (Pounds): 92 Objective Intubated, on vent. CV RR Lungs B relatively CTA! Abd SNT. BS + E No CCE Raul Cannon MD Mar 09, 2019 10:03
--- NOTE | 2019-03-09 10:49 | GI Progress Note ---
Assessment/Plan Problems: (1) Anemia ICD Codes: D64.9 - Anemia, unspecified SNOMED: 607335892 (2) Respiratory failure ICD Codes: J96.90 - Respiratory failure, unspecified, unspecified whether with hypoxia or hypercapnia SNOMED: 131303753 Qualifiers: Qualified Codes: J96.01 - Acute respiratory failure with hypoxia; J96.02 - Acute respiratory failure with hypercapnia (3) End stage renal disease on dialysis ICD Codes: N18.6 - End stage renal disease; Z99.2 - Dependence on renal dialysis SNOMED: 904874781 Status: stable Status Narrative Discussed with Dr. Taylor. Assessment/Plan s/p EGD SUMMARY OF FINDINGS: Evidence of significant esophageal possibly necrosis in the distal esophagus most probably the source of bleeding, which we could not do anything endoscopically to control it. - Bx reviewed; gastritis, negative for H. Pylori. Esophageal Ulcer edge negative for malignancy. stable H&H, no recurrent bleed reported rectal tube in place PLAN: GTFs strict aspiration precautions, elevate the head of the bed at all times. prevacid 30 mg BID Monitor hemoglobin and hematocrit every 8 hours and transfuse to keep hemoglobin above 8. Carafate 1 g every 6 hours. repeat endoscopy if patient has recurrent bleed The patient was seen and examined at bedside and all new and available data was reviewed in the patients chart. I agree with the above findings, impression and plan. (Patient seen earlier today. Signature stamp does not reflect patient encounter time.). - Hilton Taylor MD Subjective Subjective Limited Objective Last 24 Hour Vital Signs Date Time Temp Pulse Resp B/P (MAP) Pulse Ox O2 Delivery O2 Flow Rate FiO2 03/09/19 10:00 74 21 105/50 (68) 100 03/09/19 09:00 76 16 102/48 (66) 98 03/09/19 08:37 89 100/59 03/09/19 08:36 89 100/59 03/09/19 08:36 100/59 03/09/19 08:00 40 03/09/19 08:00 98.1 55 16 101/60 (74) 98 03/09/19 08:00 Mechanical Ventilator 03/09/19 07:06 89 14 100 Mechanical Ventilator 40 03/09/19 07:03 87 22 40 03/09/19 07:00 88 16 100/59 (73) 98 03/09/19 07:00 94 16 96 Mechanical Ventilator 40 03/09/19 06:00 86 25 104/75 (85) 98 03/09/19 05:10 91 18 40 03/09/19 05:00 92 28 118/63 (81) 98 03/09/19 04:00 97.8 98 19 109/62 (78) 100 03/09/19 04:00 40 03/09/19 04:00 Mechanical Ventilator 03/09/19 04:00 96 03/09/19 03:00 87 17 101/47 (65) 96 03/09/19 02:55 87 18 40 03/09/19 02:00 80 14 120/54 (76) 100 03/09/19 01:30 80 14 100 Mechanical Ventilator 40 03/09/19 01:15 80 20 97 Mechanical Ventilator 40 03/09/19 01:15 80 20 40 03/09/19 01:00 77 19 90/40 (57) 100 03/09/19 00:00 Mechanical Ventilator 03/09/19 00:00 98.3 76 17 89/42 (58) 100 03/09/19 00:00 77 03/09/19 00:00 40 03/08/19 23:06 74 18 40 03/08/19 23:00 73 19 110/38 (62) 100 03/08/19 22:00 82 21 110/55 (73) 97 03/08/19 21:15 89 23 40 03/08/19 21:00 85 21 112/54 (73) 94 03/08/19 20:55 86 106/52 03/08/19 20:00 40 03/08/19 20:00 88 03/08/19 20:00 Mechanical Ventilator 03/08/19 20:00 98.1 87 21 136/60 (85) 100 03/08/19 19:29 86 20 100 Mechanical Ventilator 40 03/08/19 19:14 82 20 100 Mechanical Ventilator 40 03/08/19 19:13 82 20 40 03/08/19 19:00 81 19 106/52 (70) 03/08/19 18:00 77 21 106/44 (64) 95 03/08/19 17:01 81 22 40 03/08/19 17:00 79 20 116/54 (74) 99 03/08/19 16:00 Mechanical Ventilator 03/08/19 16:00 79 03/08/19 16:00 98.9 79 22 109/46 (67) 85 03/08/19 16:00 40 03/08/19 15:00 79 21 102/49 (66) 96 03/08/19 14:37 81 22 40 03/08/19 14:00 94 23 117/57 (77) 76 03/08/19 13:00 98.7 92 21 123/60 (81) 77 03/08/19 12:30 93 25 40 03/08/19 12:29 93 25 94 Mechanical Ventilator 40 03/08/19 12:16 96 14 91 Mechanical Ventilator 40 03/08/19 12:00 40 03/08/19 12:00 Mechanical Ventilator 03/08/19 12:00 90 20 136/69 (91) 55 03/08/19 11:19 80 03/08/19 11:00 86 20 96/61 (73) 90 03/08/19 10:51 87 22 40 Intake and Output 03/08/19 03/09/19 18:59 06:59 Intake Total 930 ml 700 ml Output Total 450 ml Balance 480 ml 700 ml Intake Free Water 110 ml IV Total 210 ml 110 ml Tube Feeding 520 ml 480 ml Other 200 ml Stool Total 450 ml Laboratory Tests Test 03/09/19 05:29 White Blood Count 20.5 K/UL (4.8-10.8) H Red Blood Count 3.52 M/UL (4.20-5.40) L Hemoglobin 11.2 G/DL (12.0-16.0) L Hematocrit 35.1 % (37.0-47.0) L Mean Corpuscular Volume 100 FL (80-99) H Mean Corpuscular Hemoglobin 31.9 PG (27.0-31.0) H Mean Corpuscular Hemoglobin Concent 32.0 G/DL (32.0-36.0) Red Cell Distribution Width 17.6 % (11.6-14.8) H Platelet Count 430 K/UL (150-450) Mean Platelet Volume 5.6 FL (6.5-10.1) L Neutrophils (%) (Auto) % (45.0-75.0) Lymphocytes (%) (Auto) % (20.0-45.0) Monocytes (%) (Auto) % (1.0-10.0) Eosinophils (%) (Auto) % (0.0-3.0) Basophils (%) (Auto) % (0.0-2.0) Differential Total Cells Counted 100 Neutrophils % (Manual) 92 % (45-75) H Lymphocytes % (Manual) 5 % (20-45) L Monocytes % (Manual) 3 % (1-10) Eosinophils % (Manual) 0 % (0-3) Basophils % (Manual) 0 % (0-2) Band Neutrophils 0 % (0-8) Platelet Estimate Adequate Platelet Morphology Normal Anisocytosis 1+ Macrocytosis 1+ Sodium Level 140 MMOL/L (136-145) Potassium Level 3.5 MMOL/L (3.5-5.1) Chloride Level 96 MMOL/L (98-107) L Carbon Dioxide Level 28 MMOL/L (21-32) Anion Gap 17 mmol/L (5-15) H Blood Urea Nitrogen 125 mg/dL (7-18) H Creatinine 4.7 MG/DL (0.55-1.30) H Estimat Glomerular Filtration Rate mL/min (>60) Glucose Level 155 MG/DL (74-106) H Calcium Level 10.3 MG/DL (8.5-10.1) H Height (Feet): 5 Height (Inches): 3.00 Weight (Pounds): 92 General Appearance: no apparent distress Cardiovascular: normal rate Respiratory/Chest: normal breath sounds, no respiratory distress Abdominal Exam: normal bowel sounds, non tender, soft, GT site - c/d/i Extremities: non-tender Janene Ellis REGISTERED REPRESENTATIVE Mar 09, 2019 10:49
--- NOTE | 2019-03-09 11:06 | Infectious Diseases Prog Note ---
Assessment/Plan Assessment/Plan antibiotics : zosyn, fluconazole A 1. pneumonia 2. yenifer esophagitis 3. renal failure 4. CHF 5. respiratory failure 6. pleural effusions 7. leucocytosis increasing P 1. continue zosyn, fluconazole 2. start iv vancomycin 3. blood culture 4. UA and urine culture 5. stool for c.diff 6. will follow up cultures Subjective ROS Limited/Unobtainable: Yes Allergies: Coded Allergies: No Known Allergies (Unverified , 05/11/18) Objective Vital Signs Last 24 Hour Vital Signs Date Time Temp Pulse Resp B/P (MAP) Pulse Ox O2 Delivery O2 Flow Rate FiO2 03/09/19 10:00 74 21 105/50 (68) 100 03/09/19 09:00 76 16 102/48 (66) 98 03/09/19 08:37 89 100/59 03/09/19 08:36 89 100/59 03/09/19 08:36 100/59 03/09/19 08:00 40 03/09/19 08:00 98.1 55 16 101/60 (74) 98 03/09/19 08:00 Mechanical Ventilator 03/09/19 07:06 89 14 100 Mechanical Ventilator 40 03/09/19 07:03 87 22 40 03/09/19 07:00 88 16 100/59 (73) 98 03/09/19 07:00 94 16 96 Mechanical Ventilator 40 03/09/19 06:00 86 25 104/75 (85) 98 03/09/19 05:10 91 18 40 03/09/19 05:00 92 28 118/63 (81) 98 03/09/19 04:00 97.8 98 19 109/62 (78) 100 03/09/19 04:00 40 03/09/19 04:00 Mechanical Ventilator 03/09/19 04:00 96 03/09/19 03:00 87 17 101/47 (65) 96 03/09/19 02:55 87 18 40 03/09/19 02:00 80 14 120/54 (76) 100 03/09/19 01:30 80 14 100 Mechanical Ventilator 40 03/09/19 01:15 80 20 97 Mechanical Ventilator 40 03/09/19 01:15 80 20 40 03/09/19 01:00 77 19 90/40 (57) 100 03/09/19 00:00 Mechanical Ventilator 03/09/19 00:00 98.3 76 17 89/42 (58) 100 03/09/19 00:00 77 03/09/19 00:00 40 03/08/19 23:06 74 18 40 03/08/19 23:00 73 19 110/38 (62) 100 03/08/19 22:00 82 21 110/55 (73) 97 03/08/19 21:15 89 23 40 03/08/19 21:00 85 21 112/54 (73) 94 03/08/19 20:55 86 106/52 03/08/19 20:00 40 03/08/19 20:00 88 03/08/19 20:00 Mechanical Ventilator 03/08/19 20:00 98.1 87 21 136/60 (85) 100 03/08/19 19:29 86 20 100 Mechanical Ventilator 40 03/08/19 19:14 82 20 100 Mechanical Ventilator 40 03/08/19 19:13 82 20 40 03/08/19 19:00 81 19 106/52 (70) 03/08/19 18:00 77 21 106/44 (64) 95 03/08/19 17:01 81 22 40 03/08/19 17:00 79 20 116/54 (74) 99 03/08/19 16:00 Mechanical Ventilator 03/08/19 16:00 79 03/08/19 16:00 98.9 79 22 109/46 (67) 85 03/08/19 16:00 40 03/08/19 15:00 79 21 102/49 (66) 96 03/08/19 14:37 81 22 40 03/08/19 14:00 94 23 117/57 (77) 76 03/08/19 13:00 98.7 92 21 123/60 (81) 77 03/08/19 12:30 93 25 40 03/08/19 12:29 93 25 94 Mechanical Ventilator 40 03/08/19 12:16 96 14 91 Mechanical Ventilator 40 03/08/19 12:00 40 03/08/19 12:00 Mechanical Ventilator 03/08/19 12:00 90 20 136/69 (91) 55 03/08/19 11:19 80 Height (Feet): 5 Height (Inches): 3.00 Weight (Pounds): 92 HEENT: other - intubated Respiratory/Chest: lungs clear Cardiovascular: normal rate, regular rhythm, no gallop/murmur Abdomen: soft, non tender, other - GT Extremities: no edema Microbiology Date/Time Source Procedure Growth Status 03/06/19 22:00 Sputum Gram Stain - Final Resulted 03/06/19 22:00 Sputum Sputum Culture - Preliminary NO GROWTH AFTER 24 HOURS Resulted Laboratory Tests Test 03/09/19 05:29 White Blood Count 20.5 K/UL (4.8-10.8) H Red Blood Count 3.52 M/UL (4.20-5.40) L Hemoglobin 11.2 G/DL (12.0-16.0) L Hematocrit 35.1 % (37.0-47.0) L Mean Corpuscular Volume 100 FL (80-99) H Mean Corpuscular Hemoglobin 31.9 PG (27.0-31.0) H Mean Corpuscular Hemoglobin Concent 32.0 G/DL (32.0-36.0) Red Cell Distribution Width 17.6 % (11.6-14.8) H Platelet Count 430 K/UL (150-450) Mean Platelet Volume 5.6 FL (6.5-10.1) L Neutrophils (%) (Auto) % (45.0-75.0) Lymphocytes (%) (Auto) % (20.0-45.0) Monocytes (%) (Auto) % (1.0-10.0) Eosinophils (%) (Auto) % (0.0-3.0) Basophils (%) (Auto) % (0.0-2.0) Differential Total Cells Counted 100 Neutrophils % (Manual) 92 % (45-75) H Lymphocytes % (Manual) 5 % (20-45) L Monocytes % (Manual) 3 % (1-10) Eosinophils % (Manual) 0 % (0-3) Basophils % (Manual) 0 % (0-2) Band Neutrophils 0 % (0-8) Platelet Estimate Adequate Platelet Morphology Normal Anisocytosis 1+ Macrocytosis 1+ Sodium Level 140 MMOL/L (136-145) Potassium Level 3.5 MMOL/L (3.5-5.1) Chloride Level 96 MMOL/L (98-107) L Carbon Dioxide Level 28 MMOL/L (21-32) Anion Gap 17 mmol/L (5-15) H Blood Urea Nitrogen 125 mg/dL (7-18) H Creatinine 4.7 MG/DL (0.55-1.30) H Estimat Glomerular Filtration Rate mL/min (>60) Glucose Level 155 MG/DL (74-106) H Calcium Level 10.3 MG/DL (8.5-10.1) H Current Medications Medications (Trade) Dose Ordered Sig/Konrad Route PRN Reason Start Time Stop Time Status Last Admin Dose Admin Acetaminophen (Tylenol) 650 mg Q4H PRN GT Mild Pain/Temp > 100.5 02/20/19 18:00 03/16/19 17:59 03/03/19 16:50 Acetylcysteine (Mucomyst) 100 mg Q6HRT HHN 03/05/19 19:00 03/25/19 06:59 03/09/19 01:15 Albuterol/ Ipratropium (Albuterol/ Ipratropium) 3 ml Q6HRT HHN 03/05/19 19:00 03/10/19 18:59 03/09/19 07:07 Amlodipine Besylate (Norvasc) 10 mg DAILY GT 02/21/19 09:00 03/17/19 08:59 03/09/19 08:37 Carvedilol (Coreg) 12.5 mg EVERY 12 HOURS GT 03/09/19 09:00 04/08/19 08:59 03/09/19 08:36 Dextrose (Dextrose 50%) 25 ml Q30M PRN IV Hypoglycemia 02/20/19 17:45 03/16/19 15:14 Dextrose (Dextrose 50%) 50 ml Q30M PRN IV Hypoglycemia 02/20/19 17:45 03/16/19 15:14 Epoetin Chau (Epoetin Chau(ESRD on dialysis)) 10,000 unit SAT-SAT-SAT SUBQ 02/25/19 21:00 03/27/19 20:59 03/06/19 21:16 Fluconazole/ Sodium Chloride 100 ml @ 100 mls/hr Q24H IV 02/27/19 12:00 03/12/19 11:59 03/08/19 13:34 Heparin Sodium (Porcine) (Heparin 5000 units/ml) 5,000 units EVERY 12 HOURS SUBQ 02/20/19 21:00 03/16/19 20:59 03/09/19 08:39 Heparin Sodium (Porcine) (Heparin Sod 1000 units/ml 10ml) 2,000 unit ONCE PRN IV dialysis 03/09/19 09:45 03/09/19 23:59 Hydralazine HCl (Apresoline) 25 mg Q6HR PRN GT Sbp above 150 03/03/19 02:45 04/02/19 02:44 03/04/19 15:51 Insulin Aspart (NovoLOG) EVERY 6 HOURS SUBQ 02/20/19 18:00 03/16/19 16:29 03/09/19 05:11 Lansoprazole (Prevacid) 30 mg BID GT 03/01/19 09:00 03/31/19 08:59 03/09/19 08:36 Levothyroxine Sodium (Synthroid) 150 mcg DAILY@0630 GT 02/21/19 06:30 03/17/19 06:29 03/09/19 05:09 Metoclopramide HCl (Reglan) 5 mg Q6H PRN IVP Nausea & Vomiting 02/20/19 18:00 03/20/19 17:59 Minoxidil (Loniten) 2.5 mg DAILY GT 03/01/19 09:00 03/31/19 08:59 03/09/19 08:36 Ondansetron HCl (Zofran) 4 mg Q6H PRN IVP Nausea & Vomiting 02/20/19 18:00 03/19/19 17:59 Piperacillin Sod/ Tazobactam Sod 2.25 gm/Dextrose 55 ml @ 110 mls/hr Q8HR IVPB 02/26/19 22:00 03/12/19 21:59 03/09/19 05:09 Sodium Chloride 1,000 ml @ 500 mls/hr Q2H PRN IVLG sbp<90 during hd 03/09/19 09:38 03/09/19 23:59 Sucralfate (Carafate) 1 gm Q6HR GT 02/25/19 12:00 03/27/19 11:59 03/09/19 05:09 Deuce Lewis MD Mar 09, 2019 11:06
--- NOTE | 2019-03-09 11:30 | NUR ---
NURSE NOTES: No signs of distress noted. VSS. Kept clean and dry.
--- NOTE | 2019-03-09 11:45 | NUR ---
RESPIRATORY- Patient failed weaning criteria. SPON VT <200, SPON RR >35. RSBI 115.
[2019-03-09] MEDS ORDERED: Vancomycin 1gm/D5W 275ml IVPB ONE ×2 (12:00)
--- NOTE | 2019-03-09 13:30 | NUR ---
NURSE NOTES: Afebrile, tenacious secretions noted upon sxn, kept clean and dry. Turned and repositioned.
--- NOTE | 2019-03-09 16:54 | NUR ---
[employer] 03/09/2019 SI: RESP FAILURE ETT/VENT SUPPORT, PULMONARY EDEMA T 98.6 HR 77 RR 19 B/P 126/63 SATS 98% ON MECH VENT FIO2 40 WBC 20.5 CL 96 BUN 125 CR 4.7 GLU 155 CA 10.3 IS: DIFLUCAN IV ZOSYN IV HEPARIN SUBC ALB HHN ICU STATUS
--- NOTE | 2019-03-09 18:00 | NUR ---
NURSE NOTES: HD started, BP stable. No signs of distress. Blood sugar 360, 10 units per sliding scale.
--- NOTE | 2019-03-09 19:30 | NUR ---
NURSE NOTES: Report received from WILIAM Harvey. Pt A/Ox1, monitoring and evaluation advisor shows SR. PT has an ETT 7.[address] @ 25 on lip. Ventilator settings: AC4, VT:400, FiO2:40%, PEEP:5. Pt showing no signs of acute cardiac or respiratory distress. a GT in present and patent with nepro running @ 40 ml/hr. Rectal tube present and draining appropriately. Accuchecks q6hr. See WCP for skin alterations. Two [id number] present and patent. Pt currently receiving HD. Bed in lowest position, bed alarms placed, call light within reach. Will continue to monitor and with patients plan of care.
--- NOTE | 2019-03-09 19:42 | NUR ---
HAND-OFF: Report given to WILIAM Stone using SBAR. Pt is getting dialyzed now.
--- NOTE | 2019-03-09 20:00 | NUR ---
NURSE NOTES: Pt sleeping comfortably. Currently being dialyzed. Showing no signs of distress. SBP in low 90'. Will continue to monitor.
--- NOTE | 2019-03-09 22:00 | NUR ---
NURSE NOTES: Pt resting comfortably, lethargic. Wrist restraints removed and passive ROM provided. Pt repositioned. Will continue to monitor.
--- NOTE | 2019-03-09 22:36 | Pulmonolgy Critical Care Note ---
Critical Care - Asmt/Plan Assessment/Plan: Pulmonary CCM Progress Note Assessment/Plan 1. acute respiratory failure - not tolerating weanng 2. End-stage renal failure, on dialysis. 3. COPD. 4. Schizophrenia. 5. Pulmonary edema, due to overload 6. Anemia of chronic kidney disease. 7. Sick sinus syndrome. 8. diabetes mellitus. PLAN acid base adequate vent noted and settings reviewed weaning trial as tolerated, sedation minimized - did not tolerate weaning again today - only 5 minutes, increasing WCC titrate oxygen as able HD with UF transfuse ? gi bleed monitor fluid status and imaging continue supportive care nutrition as tolerated follow up for change medications/laboratory data/nursing notes/ICU care reviewed in detail note reviewed and edited care discussed with RN and RT ICU time spent 45 minutes Subjective ROS Limited/Unobtainable: Yes Allergies: Coded Allergies: No Known Allergies (Unverified , 05/11/18) Subjective care noted on oxygen on vent respiratory noted no distress ICU care reviewed Objective Vital Signs Noted Objective WDWN on vent ETT in place reduced breath sounds bilaterally without rhonchi or wheeze [id number] without MRG NABS nontender no HSM no CC mild edema nonfocal and sedated reviewed and edited Microbiology Date/Time Source Procedure Growth Status 02/23/19 04:00 Sputum Gram Stain - Final Resulted 02/23/19 04:00 Sputum Sputum Culture - Preliminary NORMAL UPPER RESPIRATORY SILVER PRESENT Resulted 02/23/19 04:50 Stool Clostridium difficile Toxin Assay - Final Complete Laboratory Tests Noted Critical Care - Objective Last 24 Hour Vital Signs Date Time Temp Pulse Resp B/P (MAP) Pulse Ox O2 Delivery O2 Flow Rate FiO2 03/09/19 21:18 74 20 40 03/09/19 20:06 78 88/38 03/09/19 20:00 78 20 98 Mechanical Ventilator 40 03/09/19 20:00 40 03/09/19 20:00 Mechanical Ventilator 03/09/19 19:50 76 23 93 Mechanical Ventilator 40 03/09/19 19:30 77 21 40 03/09/19 19:00 77 19 100/47 (64) 98 03/09/19 18:00 77 19 104/48 (66) 98 03/09/19 17:07 80 16 40 03/09/19 17:00 77 19 97/47 (64) 98 03/09/19 16:00 98.6 77 19 126/63 (84) 98 6/10/19 16:00 40 03/09/19 16:00 Mechanical Ventilator 03/09/19 16:00 80 03/09/19 15:00 74 19 110/52 (71) 98 03/09/19 14:52 82 19 40 03/09/19 14:00 76 19 122/60 (80) 98 03/09/19 13:59 80 21 100 Mechanical Ventilator 40 03/09/19 13:52 77 20 100 Mechanical Ventilator 40 03/09/19 13:29 77 21 40 03/09/19 13:00 98.5 75 21 116/55 (75) 98 03/09/19 12:00 Mechanical Ventilator 03/09/19 12:00 40 03/09/19 12:00 78 21 100/52 (68) 98 03/09/19 12:00 78 03/09/19 11:25 78 22 40 03/09/19 11:00 84 21 105/64 (78) 98 03/09/19 10:00 74 21 105/50 (68) 100 03/09/19 09:22 87 20 40 03/09/19 09:00 76 16 102/48 (66) 98 03/09/19 08:37 89 100/59 03/09/19 08:36 89 100/59 03/09/19 08:36 100/59 03/09/19 08:00 40 03/09/19 08:00 98.1 55 16 101/60 (74) 98 03/09/19 08:00 76 03/09/19 08:00 Mechanical Ventilator 03/09/19 07:06 89 14 100 Mechanical Ventilator 40 03/09/19 07:03 87 22 40 03/09/19 07:00 88 16 100/59 (73) 98 03/09/19 07:00 94 16 96 Mechanical Ventilator 40 03/09/19 06:00 86 25 104/75 (85) 98 03/09/19 05:10 91 18 40 03/09/19 05:00 92 28 118/63 (81) 98 03/09/19 04:00 97.8 98 19 109/62 (78) 100 03/09/19 04:00 40 03/09/19 04:00 Mechanical Ventilator 03/09/19 04:00 96 03/09/19 03:00 87 17 101/47 (65) 96 03/09/19 02:55 87 18 40 03/09/19 02:00 80 14 120/54 (76) 100 03/09/19 01:30 80 14 100 Mechanical Ventilator 40 03/09/19 01:15 80 20 97 Mechanical Ventilator 40 03/09/19 01:15 80 20 40 03/09/19 01:00 77 19 90/40 (57) 100 03/09/19 00:00 Mechanical Ventilator 03/09/19 00:00 98.3 76 17 89/42 (58) 100 03/09/19 00:00 77 03/09/19 00:00 40 03/08/19 23:06 74 18 40 03/08/19 23:00 73 19 110/38 (62) 100 Accucheck: 360 Critical Care - Subjective ROS Limited/Unobtainable: No FI02: 40 Vent Support Breath Rate: 14 Vent Support Mode: AC Vent Tidal Volume: 400 Sputum Amount: Small PEEP: 5.0 PIP: 26 Tube Feeding Amount: 40 I&O: Intake and Output 03/08/19 03/09/19 19:00 07:00 Intake Total 830 ml 700 ml Output Total 450 ml Balance 380 ml 700 ml Intake Free Water 110 ml IV Total 210 ml 110 ml Tube Feeding 520 ml 480 ml Other 100 ml Stool Total 450 ml ET-Tube: 7.5 ET Position: 23 Wilmer Palacios MD Mar 09, 2019 22:35
[2019-03-10] VITALS (33 sets, daily range): BP systolic 66–142; BP diastolic 27–70
--- NOTE | 2019-03-10 | NUR ---
NURSE NOTES: Pt currently sleeping. Showing no signs of acute distress. Pt repositioned. VSS, lethargic.
--- NOTE | 2019-03-10 02:00 | NUR ---
NURSE NOTES: Pt sleeping. VSS. Will continue to monitor.
[2019-03-10] MEDS: Albuterol/Ipratropium 3ml neb HHN SCH ×4 (02:15→19:21)
--- NOTE | 2019-03-10 02:30 | Progress Note ---
DATE: 03/09/2019 CARDIOLOGY PROGRESS NOTE SUBJECTIVE: This patient remains on ventilator support. Weaning trials have been unsuccessful. OBJECTIVE: VITAL SIGNS: Blood pressure 100/60, heart rate 89, and respirations 20. She is afebrile. LUNGS: Bilateral breath sounds. Scattered rales. HEART: Regular rhythm and rate. Normal S1, S2. ABDOMEN: Soft. EXTREMITIES: Trace edema. LABORATORY DATA: White count 20 and hemoglobin 11. Potassium 3.5, BUN 125, and creatinine 4.7. IMPRESSION: 1. Respiratory failure. 2. Acute on chronic diastolic congestive heart failure. 3. Sepsis. 4. Healthcare-acquired pneumonia. PLAN: 1. Recheck chest x-ray. 2. Re-culture sputum. 3. Antimicrobials per Infectious Disease x ray consultant. 4. We will have to decrease antihypertensives in view of decreasing blood pressure parameters. Wilmer Hoyos M.D. DR: ESSIE JOB#: [id number] CC:
--- NOTE | 2019-03-10 04:00 | NUR ---
NURSE NOTES: Pt cleaned and repositioned. VSS. Will continue to monitor.
[2019-03-10 05:40] LABS: HEMATOCRIT 33.4 % (37.0-47.0); HEMOGLOBIN 10.8 G/DL (12.0-16.0); MEAN CORPUSCULAR VOLUME 100 FL (80-99); PLATELET COUNT 454 K/UL (150-450); RED BLOOD COUNT 3.36 M/UL (4.20-5.40); RED CELL DISTRIBUTION WIDTH 17.1 % (11.6-14.8); WHITE BLOOD COUNT 20.8 K/UL (4.8-10.8)
[2019-03-10] MEDS: Piperacillin/Tazobactam 2.25 GM in D5W 55 ML IVPB SCH ×3 (05:41→22:16)
[2019-03-10] MEDS: Sucralfate 1gm tab GT SCH ×3 (05:41→18:03)
[2019-03-10] MEDS: NovoLOG Insulin Flexpen SUBQ SCH ×3 (05:42→18:02)
--- NOTE | 2019-03-10 06:00 | NUR ---
NURSE NOTES: Pt cleaned and repositioned. Pt continues to be lethargic. VSS, showing no signs of acute distress.
[2019-03-10 06:14] LABS: ANION GAP 16 mmol/L (5-15); BLOOD UREA NITROGEN 102 mg/dL (7-18); CALCIUM 10.2 MG/DL (8.5-10.1); CARBON DIOXIDE 26 MMOL/L (21-32); CHLORIDE 96 MMOL/L (98-107); CREATININE 3.8 MG/DL (0.55-1.30); POTASSIUM 3.3 MMOL/L (3.5-5.1); SODIUM 138 MMOL/L (136-145)
--- NOTE | 2019-03-10 06:58 | NUR ---
RESPIRATORY NOTE: received pt on current vent setting. orally intubated with ETT 7.5 placed 23 cm at the lip. ETT secured via anchor fast with no redness or skin tears. OPA in place due to pt biting on the ETT. no resp distress noted at this time. will follow weaning orders later this morning. ambu bag at bedside with alarms set and audible. vent is plugged into the red outlet. will cont to monitor.
--- NOTE | 2019-03-10 07:15 | NUR ---
NURSE NOTES: Received pt from WILIAM Stone. patient is awake/disoriented/more lethargic than yesterday. Orally intubated ETT 7.5/25cm at lip line, Vent settings AC 14/TV400/Fio2 40%/PEEP5, spo2 100%, RR 22. Copious thick secretions noted via ETT. NSR on monitoring and evaluation advisor; HR 94. PEG running Nepro@40cc/hr, HOB 35 degrees, no residual. Abd flat, non-distended. Bilateral soft wrist restraints in place; skin intact and warm to touch. x2 RFA 22G patent and asymptomatic. AV shunt on left upper arm, positive for thrill and bruit. HD done yesterday, 2L out. Low BP reported last night. Dressing on sacral intact and clean. Bed locked, alarmed and in lowest position. Will continue plan of care.
--- NOTE | 2019-03-10 07:25 | NUR ---
NURSE NOTES: Report given to WILIAM Harvey.
--- NOTE | 2019-03-10 08:10 | Pulmonology Progress Note ---
Assessment/Plan Assessment/Plan 1. acute respiratory failure 2. End-stage renal failure, on dialysis. 3. COPD. 4. Schizophrenia. 5. Pulmonary edema, due to overload 6. Anemia of chronic kidney disease. 7. Sick sinus syndrome. 8. diabetes mellitus. 9. protein calorie malnutrition 10. pulmonary infiltrates PLAN monitor as is vent noted and settings reviewed weaning - difficult; may need trach oxygen management noted HD with UF replace K keep negative as able monitor oxygen delivery monitor for bleeding monitor fluid status and imaging continue supportive care and ICU management reviewed all and monitored nutrition and monitor protein levels follow up for change and recommend medications/laboratory data/nursing notes/ICU care reviewed in detail note reviewed and edited care discussed with RN and RT ICU time spent 40 minutes Subjective ROS Limited/Unobtainable: Yes Allergies: Coded Allergies: No Known Allergies (Unverified , 05/11/18) Subjective care noted on oxygen and vent respiratory noted ICU care reviewed and discussed d/w primary, difficulty with wean Objective Last 24 Hour Vital Signs Date Time Temp Pulse Resp B/P (MAP) Pulse Ox O2 Delivery O2 Flow Rate FiO2 03/10/19 07:10 95 25 100 Mechanical Ventilator 40 03/10/19 06:57 91 25 100 Mechanical Ventilator 40 03/10/19 06:55 89 23 40 03/10/19 06:00 86 21 108/45 (66) 100 03/10/19 05:05 84 20 40 03/10/19 05:00 83 21 102/42 (62) 97 03/10/19 04:00 98.2 86 22 112/47 (68) 99 03/10/19 04:00 Mechanical Ventilator 03/10/19 04:00 40 03/10/19 04:00 81 03/10/19 03:27 81 17 40 03/10/19 03:00 82 23 116/38 (64) 98 03/10/19 02:00 84 20 107/33 (57) 99 03/10/19 02:00 85 18 100 Mechanical Ventilator 40 03/10/19 01:50 83 18 98 Mechanical Ventilator 40 03/10/19 01:30 83 18 40 03/10/19 01:00 84 21 93/35 (54) 99 03/10/19 00:00 98.0 83 21 94/37 (56) 99 03/10/19 00:00 40 03/10/19 00:00 98 03/10/19 00:00 Mechanical Ventilator 03/09/19 23:00 77 14 103/35 (57) 99 03/09/19 22:56 78 14 40 03/09/19 22:00 77 22 86/30 (48) 98 03/09/19 21:18 74 20 40 03/09/19 21:00 76 21 92/31 (51) 98 03/09/19 20:06 78 88/38 03/09/19 20:00 78 20 98 Mechanical Ventilator 40 03/09/19 20:00 87 03/09/19 20:00 98.0 84 20 91/39 (56) 98 03/09/19 20:00 40 03/09/19 20:00 Mechanical Ventilator 03/09/19 19:50 76 23 93 Mechanical Ventilator 40 03/09/19 19:30 77 21 40 03/09/19 19:00 77 19 100/47 (64) 98 03/09/19 18:00 77 19 104/48 (66) 98 03/09/19 17:07 80 16 40 03/09/19 17:00 77 19 97/47 (64) 98 03/09/19 16:00 98.6 77 19 126/63 (84) 98 03/09/19 16:00 40 03/09/19 16:00 Mechanical Ventilator 03/09/19 16:00 80 03/09/19 15:00 74 19 110/52 (71) 98 03/09/19 14:52 82 19 40 03/09/19 14:00 76 19 122/60 (80) 98 03/09/19 13:59 80 21 100 Mechanical Ventilator 40 03/09/19 13:52 77 20 100 Mechanical Ventilator 40 03/09/19 13:29 77 21 40 03/09/19 13:00 98.5 75 21 116/55 (75) 98 03/09/19 12:00 Mechanical Ventilator 03/09/19 12:00 40 03/09/19 12:00 78 21 100/52 (68) 98 03/09/19 12:00 78 03/09/19 11:25 78 22 40 03/09/19 11:00 84 21 105/64 (78) 98 03/09/19 10:00 74 21 105/50 (68) 100 03/09/19 09:22 87 20 40 03/09/19 09:00 76 16 102/48 (66) 98 03/09/19 08:37 89 100/59 03/09/19 08:36 89 100/59 03/09/19 08:36 100/59 Intake and Output 03/09/19 03/10/19 19:00 07:00 Intake Total 660 ml 580 ml Output Total 0 ml 0 ml Balance 660 ml 580 ml Intake Free Water 180 ml 30 ml IV Total 110 ml Tube Feeding 480 ml 440 ml Output Urine Total 0 ml 0 ml Objective WDWN on vent ETT in place reduced breath sounds bilaterally without rhonchi or wheeze [id number] without MRG NABS nontender no HSM; no distention; feeding tube no CC mild edema nonfocal and sedated reviewed and edited Laboratory Tests 03/09/19 12:05: Hepatitis B Surface Antigen [Pending] 03/10/19 04:50: White Blood Count 20.8H, Red Blood Count 3.36L, Hemoglobin 10.8L, Hematocrit 33.4L, Mean Corpuscular Volume 100H, Mean Corpuscular Hemoglobin 32.2H, Mean Corpuscular Hemoglobin Concent 32.4, Red Cell Distribution Width 17.1H, Platelet Count 454H, Mean Platelet Volume 5.9L, Neutrophils (%) (Auto) , Lymphocytes (%) (Auto) , Monocytes (%) (Auto) , Eosinophils (%) (Auto) , Basophils (%) (Auto) , Differential Total Cells Counted 100, Neutrophils % ( Manual) 87H, Lymphocytes % (Manual) 7L, Monocytes % (Manual) 6, Eosinophils % ( Manual) 0, Basophils % (Manual) 0, Band Neutrophils 0, Platelet Estimate Adequate, Platelet Morphology Normal, Hypochromasia 1+, Anisocytosis 1+, Sodium Level 138, Potassium Level 3.3L, Chloride Level 96L, Carbon Dioxide Level 26, Anion Gap 16H, Blood Urea Nitrogen 102H, Creatinine 3.8H, Estimat Glomerular Filtration Rate , Glucose Level 266#H, Calcium Level 10.2H, Random Vancomycin Level [Pending] Current Medications Medications (Trade) Dose Ordered Sig/Konrad Route PRN Reason Start Time Stop Time Status Last Admin Dose Admin Acetaminophen (Tylenol) 650 mg Q4H PRN GT Mild Pain/Temp > 100.5 02/20/19 18:00 03/16/19 17:59 03/03/19 16:50 Acetylcysteine (Mucomyst) 100 mg Q6HRT HHN 03/05/19 19:00 03/25/19 06:59 03/10/19 06:55 Albuterol/ Ipratropium (Albuterol/ Ipratropium) 3 ml Q6HRT HHN 03/05/19 19:00 03/10/19 18:59 03/10/19 06:55 Amlodipine Besylate (Norvasc) 5 mg DAILY GT 03/10/19 09:00 04/09/19 08:59 Carvedilol (Coreg) 12.5 mg EVERY 12 HOURS GT 03/09/19 09:00 04/08/19 08:59 03/09/19 08:36 Dextrose (Dextrose 50%) 25 ml Q30M PRN IV Hypoglycemia 02/20/19 17:45 03/16/19 15:14 Dextrose (Dextrose 50%) 50 ml Q30M PRN IV Hypoglycemia 02/20/19 17:45 03/16/19 15:14 Epoetin Chau (Epoetin Chau(ESRD on dialysis)) 8,000 unit SAT-SAT-SAT SUBQ 03/11/19 21:00 04/10/19 20:59 Fluconazole/ Sodium Chloride 100 ml @ 100 mls/hr Q24H IV 02/27/19 12:00 03/12/19 11:59 03/09/19 12:33 Heparin Sodium (Porcine) (Heparin 5000 units/ml) 5,000 units EVERY 12 HOURS SUBQ 02/20/19 21:00 03/16/19 20:59 03/09/19 21:11 Hydralazine HCl (Apresoline) 25 mg Q6HR PRN GT Sbp above 150 03/03/19 02:45 04/02/19 02:44 03/04/19 15:51 Insulin Aspart (NovoLOG) EVERY 6 HOURS SUBQ 02/20/19 18:00 03/16/19 16:29 03/10/19 05:42 Lansoprazole (Prevacid) 30 mg BID GT 03/01/19 09:00 03/31/19 08:59 03/09/19 17:56 Levothyroxine Sodium (Synthroid) 150 mcg DAILY@0630 GT 02/21/19 06:30 03/17/19 06:29 03/10/19 05:41 Metoclopramide HCl (Reglan) 5 mg Q6H PRN IVP Nausea & Vomiting 02/20/19 18:00 03/20/19 17:59 Ondansetron HCl (Zofran) 4 mg Q6H PRN IVP Nausea & Vomiting 02/20/19 18:00 03/19/19 17:59 Piperacillin Sod/ Tazobactam Sod 2.25 gm/Dextrose 55 ml @ 110 mls/hr Q8HR IVPB 02/26/19 22:00 03/12/19 21:59 03/10/19 05:41 Sucralfate (Carafate) 1 gm Q6HR GT 02/25/19 12:00 03/27/19 11:59 03/10/19 05:41 Vancomycin HCl (Vanco rx to dose) 1 ea DAILY PRN MISC Per rx protocol 03/09/19 11:15 04/08/19 11:14 Jac Ramirez MD Mar 10, 2019 08:10
[2019-03-10] MEDS: Carvedilol 6.25mg Tab GT SCH ×2 (09:00→20:12)
--- NOTE | 2019-03-10 09:00 | Nephrology Progress Note ---
Assessment/Plan Plan Respiratory Failure due to intractable CHF! Trying to wean off vent. [place] Starting decubiti. Malnutrition Poor Prognosis. HD MWF Subjective Subjective In ICU. On vent. So far weaning trials unsuccessful. Objective Objective Last 24 Hour Vital Signs Date Time Temp Pulse Resp B/P (MAP) Pulse Ox O2 Delivery O2 Flow Rate FiO2 03/10/19 08:52 89 23 40 03/10/19 07:10 95 25 100 Mechanical Ventilator 40 03/10/19 06:57 91 25 100 Mechanical Ventilator 40 03/10/19 06:55 89 23 40 03/10/19 06:00 86 21 108/45 (66) 100 03/10/19 05:05 84 20 40 03/10/19 05:00 83 21 102/42 (62) 97 03/10/19 04:00 98.2 86 22 112/47 (68) 99 03/10/19 04:00 Mechanical Ventilator 03/10/19 04:00 40 03/10/19 04:00 81 03/10/19 03:27 81 17 40 03/10/19 03:00 82 23 116/38 (64) 98 03/10/19 02:00 84 20 107/33 (57) 99 03/10/19 02:00 85 18 100 Mechanical Ventilator 40 03/10/19 01:50 83 18 98 Mechanical Ventilator 40 03/10/19 01:30 83 18 40 03/10/19 01:00 84 21 93/35 (54) 99 03/10/19 00:00 98.0 83 21 94/37 (56) 99 03/10/19 00:00 40 03/10/19 00:00 98 03/10/19 00:00 Mechanical Ventilator 03/09/19 23:00 77 14 103/35 (57) 99 03/09/19 22:56 78 14 40 03/09/19 22:00 77 22 86/30 (48) 98 03/09/19 21:18 74 20 40 03/09/19 21:00 76 21 92/31 (51) 98 03/09/19 20:06 78 88/38 03/09/19 20:00 78 20 98 Mechanical Ventilator 40 03/09/19 20:00 87 03/09/19 20:00 98.0 84 20 91/39 (56) 98 03/09/19 20:00 40 03/09/19 20:00 Mechanical Ventilator 03/09/19 19:50 76 23 93 Mechanical Ventilator 40 03/09/19 19:30 77 21 40 03/09/19 19:00 77 19 100/47 (64) 98 03/09/19 18:00 77 19 104/48 (66) 98 03/09/19 17:07 80 16 40 03/09/19 17:00 77 19 97/47 (64) 98 03/09/19 16:00 98.6 77 19 126/63 (84) 98 03/09/19 16:00 40 03/09/19 16:00 Mechanical Ventilator 03/09/19 16:00 80 03/09/19 15:00 74 19 110/52 (71) 98 03/09/19 14:52 82 19 40 03/09/19 14:00 76 19 122/60 (80) 98 03/09/19 13:59 80 21 100 Mechanical Ventilator 40 03/09/19 13:52 77 20 100 Mechanical Ventilator 40 03/09/19 13:29 77 21 40 03/09/19 13:00 98.5 75 21 116/55 (75) 98 03/09/19 12:00 Mechanical Ventilator 03/09/19 12:00 40 03/09/19 12:00 78 21 100/52 (68) 98 03/09/19 12:00 78 03/09/19 11:25 78 22 40 03/09/19 11:00 84 21 105/64 (78) 98 03/09/19 10:00 74 21 105/50 (68) 100 03/09/19 09:22 87 20 40 03/09/19 09:00 76 16 102/48 (66) 98 Intake and Output 03/09/19 03/10/19 18:59 06:59 Intake Total 660 ml 620 ml Output Total 0 ml 0 ml Balance 660 ml 620 ml Intake Free Water 180 ml 30 ml IV Total 110 ml Tube Feeding 480 ml 480 ml Output Urine Total 0 ml 0 ml Laboratory Tests 03/09/19 12:05: Hepatitis B Surface Antigen [Pending] 03/10/19 04:50: White Blood Count 20.8H, Red Blood Count 3.36L, Hemoglobin 10.8L, Hematocrit 33.4L, Mean Corpuscular Volume 100H, Mean Corpuscular Hemoglobin 32.2H, Mean Corpuscular Hemoglobin Concent 32.4, Red Cell Distribution Width 17.1H, Platelet Count 454H, Mean Platelet Volume 5.9L, Neutrophils (%) (Auto) , Lymphocytes (%) (Auto) , Monocytes (%) (Auto) , Eosinophils (%) (Auto) , Basophils (%) (Auto) , Differential Total Cells Counted 100, Neutrophils % ( Manual) 87H, Lymphocytes % (Manual) 7L, Monocytes % (Manual) 6, Eosinophils % ( Manual) 0, Basophils % (Manual) 0, Band Neutrophils 0, Platelet Estimate Adequate, Platelet Morphology Normal, Hypochromasia 1+, Anisocytosis 1+, Sodium Level 138, Potassium Level 3.3L, Chloride Level 96L, Carbon Dioxide Level 26, Anion Gap 16H, Blood Urea Nitrogen 102H, Creatinine 3.8H, Estimat Glomerular Filtration Rate , Glucose Level 266#H, Calcium Level 10.2H, Random Vancomycin Level 27.0 Height (Feet): 5 Height (Inches): 3.00 Weight (Pounds): 102 Objective Intubated, on vent. [place] CV RR Lungs B relatively CTA! Abd SNT. BS + E No CCE Raul Cannon MD Mar 10, 2019 09:00
--- NOTE | 2019-03-10 09:03 | NUR ---
RESPIRATORY NOTE: attempted to wean pt with RN at bedside. CPAP PS 8, RR increase rapidly to 43, Vt 130s. placed pt back on AC mode
[2019-03-10] MEDS: Heparin 5000 units/ml inj SUBQ SCH ×2 (09:18→21:00)
--- NOTE | 2019-03-10 09:26 | NUR ---
NURSE NOTES: Coreg held due to decreased BP during night, patient lethargic due to HD. Received orders to increase GTF to 50ml/hr. No residual noted. Zeke given with free water flush 100cc. patient failed weaning, notified Dr. Hernandez who is rounding at bedside.
[2019-03-10] MEDS ORDERED: Heparin Sod 1000 units/ml 10ml IV PRN (09:30)
--- NOTE | 2019-03-10 10:08 | NUR ---
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 * Increased kcal/prot needs R/T renal dysfunction, ESRD, wound healing, underweight status as evidenced by pt on HD, admitted w/ non-blanchable erythemas w/ partial thickness pressure injuries, refer to WC eval, low BMI per guidelines, w/ severe generalized wasting. CURRENT TF:Nepro INCREASED to 50ml/hr x 22 hrs ENTERAL NUTRITION RECOMMENDATIONS: Nepro @ 40ml/hr x 22 hrs + Prosource 1 pkt daily to provide 880ml, 1584kcal, 71g + 11g prot, 640ml free water * Rec Nepro @ 40ml/hr x 22 hrs : meets 100% est needs * Add Prosource 1pkt daily to better meet protein needs * Hold 1 hr before and after Synthroid med * HOB over 30 degrees/ water flush per MD ADDITIONAL RECOMMENDATIONS: * Per SNF record: HT=66", UG=145iuu (02/09/19) -> RECALIBRATE BEDSCALE: fluctuating daily wts-> 102 92 127 105 * Obtain dry wt post HD * Wound healing: continue Zeke 1pkt BID * Probiotics for diarrhea * Rec long acting insulin for improved BG control .
--- NOTE | 2019-03-10 10:53 | GI Progress Note ---
Assessment/Plan Problems: (1) Anemia ICD Codes: D64.9 - Anemia, unspecified SNOMED: 793225143 (2) Respiratory failure ICD Codes: J96.90 - Respiratory failure, unspecified, unspecified whether with hypoxia or hypercapnia SNOMED: 192081306 Qualifiers: Qualified Codes: J96.01 - Acute respiratory failure with hypoxia; J96.02 - Acute respiratory failure with hypercapnia (3) End stage renal disease on dialysis ICD Codes: N18.6 - End stage renal disease; Z99.2 - Dependence on renal dialysis SNOMED: 141722203 Status: not improved, unchanged Status Narrative Discussed with Dr. Taylor. Assessment/Plan s/p EGD SUMMARY OF FINDINGS: Evidence of significant esophageal possibly necrosis in the distal esophagus most probably the source of bleeding, which we could not do anything endoscopically to control it. - Bx reviewed; gastritis, negative for H. Pylori. Esophageal Ulcer edge negative for malignancy. stable H&H, no recurrent bleed reported rectal tube in place PLAN: GTFs strict aspiration precautions, elevate the head of the bed at all times. prevacid 30 mg BID Monitor hemoglobin and hematocrit every 8 hours and transfuse to keep hemoglobin above 8. Carafate 1 g every 6 hours. repeat endoscopy if patient has recurrent bleed The patient was seen and examined at bedside and all new and available data was reviewed in the patients chart. I agree with the above findings, impression and plan. (Patient seen earlier today. Signature stamp does not reflect patient encounter time.). - Hilton Taylor MD Subjective Subjective Limited Objective Last 24 Hour Vital Signs Date Time Temp Pulse Resp B/P (MAP) Pulse Ox O2 Delivery O2 Flow Rate FiO2 03/10/19 10:42 99 20 40 03/10/19 09:17 89 108/45 03/10/19 09:02 99 03/10/19 09:00 89 108/45 03/10/19 08:52 89 23 40 03/10/19 08:00 40 03/10/19 08:00 90 03/10/19 08:00 Mechanical Ventilator 03/10/19 07:10 95 25 100 Mechanical Ventilator 40 03/10/19 06:57 91 25 100 Mechanical Ventilator 40 03/10/19 06:55 89 23 40 03/10/19 06:00 86 21 108/45 (66) 100 03/10/19 05:05 84 20 40 03/10/19 05:00 83 21 102/42 (62) 97 03/10/19 04:00 98.2 86 22 112/47 (68) 99 03/10/19 04:00 Mechanical Ventilator 03/10/19 04:00 40 03/10/19 04:00 81 03/10/19 03:27 81 17 40 03/10/19 03:00 82 23 116/38 (64) 98 03/10/19 02:00 84 20 107/33 (57) 99 03/10/19 02:00 85 18 100 Mechanical Ventilator 40 03/10/19 01:50 83 18 98 Mechanical Ventilator 40 03/10/19 01:30 83 18 40 03/10/19 01:00 84 21 93/35 (54) 99 03/10/19 00:00 98.0 83 21 94/37 (56) 99 03/10/19 00:00 40 03/10/19 00:00 98 03/10/19 00:00 Mechanical Ventilator 03/09/19 23:00 77 14 103/35 (57) 99 03/09/19 22:56 78 14 40 03/09/19 22:00 77 22 86/30 (48) 98 03/09/19 21:18 74 20 40 03/09/19 21:00 76 21 92/31 (51) 98 03/09/19 20:06 78 88/38 03/09/19 20:00 78 20 98 Mechanical Ventilator 40 03/09/19 20:00 87 03/09/19 20:00 98.0 84 20 91/39 (56) 98 03/09/19 20:00 40 03/09/19 20:00 Mechanical Ventilator 03/09/19 19:50 76 23 93 Mechanical Ventilator 40 03/09/19 19:30 77 21 40 03/09/19 19:00 77 19 100/47 (64) 98 03/09/19 18:00 77 19 104/48 (66) 98 03/09/19 17:07 80 16 40 03/09/19 17:00 77 19 97/47 (64) 98 03/09/19 16:00 98.6 77 19 126/63 (84) 98 03/09/19 16:00 40 03/09/19 16:00 Mechanical Ventilator 03/09/19 16:00 80 6/10/19 15:00 74 19 110/52 (71) 98 03/09/19 14:52 82 19 40 03/09/19 14:00 76 19 122/60 (80) 98 03/09/19 13:59 80 21 100 Mechanical Ventilator 40 03/09/19 13:52 77 20 100 Mechanical Ventilator 40 03/09/19 13:29 77 21 40 03/09/19 13:00 98.5 75 21 116/55 (75) 98 03/09/19 12:00 Mechanical Ventilator 03/09/19 12:00 40 03/09/19 12:00 78 21 100/52 (68) 98 03/09/19 12:00 78 03/09/19 11:25 78 22 40 03/09/19 11:00 84 21 105/64 (78) 98 Intake and Output 03/09/19 03/10/19 18:59 06:59 Intake Total 660 ml 620 ml Output Total 0 ml 0 ml Balance 660 ml 620 ml Intake Free Water 180 ml 30 ml IV Total 110 ml Tube Feeding 480 ml 480 ml Output Urine Total 0 ml 0 ml Laboratory Tests Test 03/09/19 12:05 03/10/19 04:50 Hepatitis B Surface Antigen Pending White Blood Count 20.8 K/UL (4.8-10.8) H Red Blood Count 3.36 M/UL (4.20-5.40) L Hemoglobin 10.8 G/DL (12.0-16.0) L Hematocrit 33.4 % (37.0-47.0) L Mean Corpuscular Volume 100 FL (80-99) H Mean Corpuscular Hemoglobin 32.2 PG (27.0-31.0) H Mean Corpuscular Hemoglobin Concent 32.4 G/DL (32.0-36.0) Red Cell Distribution Width 17.1 % (11.6-14.8) H Platelet Count 454 K/UL (150-450) H Mean Platelet Volume 5.9 FL (6.5-10.1) L Neutrophils (%) (Auto) % (45.0-75.0) Lymphocytes (%) (Auto) % (20.0-45.0) Monocytes (%) (Auto) % (1.0-10.0) Eosinophils (%) (Auto) % (0.0-3.0) Basophils (%) (Auto) % (0.0-2.0) Differential Total Cells Counted 100 Neutrophils % (Manual) 87 % (45-75) H Lymphocytes % (Manual) 7 % (20-45) L Monocytes % (Manual) 6 % (1-10) Eosinophils % (Manual) 0 % (0-3) Basophils % (Manual) 0 % (0-2) Band Neutrophils 0 % (0-8) Platelet Estimate Adequate Platelet Morphology Normal Hypochromasia 1+ Anisocytosis 1+ Sodium Level 138 MMOL/L (136-145) Potassium Level 3.3 MMOL/L (3.5-5.1) L Chloride Level 96 MMOL/L (98-107) L Carbon Dioxide Level 26 MMOL/L (21-32) Anion Gap 16 mmol/L (5-15) H Blood Urea Nitrogen 102 mg/dL (7-18) H Creatinine 3.8 MG/DL (0.55-1.30) H Estimat Glomerular Filtration Rate mL/min (>60) Glucose Level 266 MG/DL (74-106) #H Calcium Level 10.2 MG/DL (8.5-10.1) H Random Vancomycin Level 27.0 ug/mL Height (Feet): 5 Height (Inches): 3.00 Weight (Pounds): 102 General Appearance: no apparent distress, thin Cardiovascular: normal rate Respiratory/Chest: no respiratory distress, other - intubated Abdominal Exam: normal bowel sounds, non tender, soft, GT site - c/d/i Janene Ellis NP Mar 10, 2019 10:53
--- NOTE | 2019-03-10 11:08 | Diagnostic Imaging Report ---
APPROVED REPORT CPT Code: 28663 Present Symptoms Comments: BILATERAL LEGS PAIN. BILATERAL: Imaging reveals a patent deep venous system bilaterally. There is no evidence of thrombus within the femoral, popliteal or tibial segments. The greater saphenous veins are also within normal limits. Doppler indicates normal spontaneous flow within these segments.
--- NOTE | 2019-03-10 11:20 | NUR ---
NURSE NOTES: Turned and repositioned. No signs of distress. VSS.
[2019-03-10] MEDS: Acetaminophen 650mg/20.3ml GT PRN (11:32)
--- NOTE | 2019-03-10 12:19 | Infectious Diseases Prog Note ---
Assessment/Plan Assessment/Plan A; 1. Possible pneumonia 2. Pleural effusions. 3. Congestive heart failure. 4. Renal failure, on dialysis. 5. Sick sinus syndrome. 6. Necrotizing esophagitis. 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 Acute respiratory failure 9. Worsening Leukocytosis PLAN: 1. Continue Zosyn, Vancomycin & fluconazole 2. Will F/U cultures Subjective ROS Limited/Unobtainable: Yes Constitutional: Denies: fever Allergies: Coded Allergies: No Known Allergies (Unverified , 05/11/18) Objective Vital Signs Last 24 Hour Vital Signs Date Time Temp Pulse Resp B/P (MAP) Pulse Ox O2 Delivery O2 Flow Rate FiO2 03/10/19 12:02 98.8 03/10/19 12:00 Mechanical Ventilator 03/10/19 12:00 98.8 92 20 110/50 (70) 100 03/10/19 12:00 40 03/10/19 11:00 94 20 120/55 (76) 100 03/10/19 10:42 99 20 40 03/10/19 10:00 96 21 123/53 (76) 100 03/10/19 09:17 89 108/45 03/10/19 09:02 99 03/10/19 09:00 89 108/45 03/10/19 09:00 95 21 117/52 (73) 100 03/10/19 08:52 89 23 40 03/10/19 08:00 40 03/10/19 08:00 93 21 120/70 (87) 100 03/10/19 08:00 90 03/10/19 08:00 Mechanical Ventilator 03/10/19 07:10 95 25 100 Mechanical Ventilator 40 03/10/19 07:00 98.6 90 21 115/46 (69) 100 03/10/19 06:57 91 25 100 Mechanical Ventilator 40 03/10/19 06:55 89 23 40 03/10/19 06:00 86 21 108/45 (66) 100 03/10/19 05:05 84 20 40 03/10/19 05:00 83 21 102/42 (62) 97 03/10/19 04:00 98.2 86 22 112/47 (68) 99 03/10/19 04:00 Mechanical Ventilator 03/10/19 04:00 40 03/10/19 04:00 81 03/10/19 03:27 81 17 40 03/10/19 03:00 82 23 116/38 (64) 98 03/10/19 02:00 84 20 107/33 (57) 99 03/10/19 02:00 85 18 100 Mechanical Ventilator 40 03/10/19 01:50 83 18 98 Mechanical Ventilator 40 03/10/19 01:30 83 18 40 03/10/19 01:00 84 21 93/35 (54) 99 03/10/19 00:00 98.0 83 21 94/37 (56) 99 03/10/19 00:00 40 03/10/19 00:00 98 03/10/19 00:00 Mechanical Ventilator 03/09/19 23:00 77 14 103/35 (57) 99 03/09/19 22:56 78 14 40 03/09/19 22:00 77 22 86/30 (48) 98 03/09/19 21:18 74 20 40 03/09/19 21:00 76 21 92/31 (51) 98 03/09/19 20:06 78 88/38 03/09/19 20:00 78 20 98 Mechanical Ventilator 40 03/09/19 20:00 87 03/09/19 20:00 98.0 84 20 91/39 (56) 98 03/09/19 20:00 40 03/09/19 20:00 Mechanical Ventilator 03/09/19 19:50 76 23 93 Mechanical Ventilator 40 03/09/19 19:30 77 21 40 03/09/19 19:00 77 19 100/47 (64) 98 03/09/19 18:00 77 19 104/48 (66) 98 03/09/19 17:07 80 16 40 03/09/19 17:00 77 19 97/47 (64) 98 03/09/19 16:00 98.6 77 19 126/63 (84) 98 03/09/19 16:00 40 03/09/19 16:00 Mechanical Ventilator 03/09/19 16:00 80 03/09/19 15:00 74 19 110/52 (71) 98 03/09/19 14:52 82 19 40 03/09/19 14:00 76 19 122/60 (80) 98 03/09/19 13:59 80 21 100 Mechanical Ventilator 40 03/09/19 13:52 77 20 100 Mechanical Ventilator 40 03/09/19 13:29 77 21 40 03/09/19 13:00 98.5 75 21 116/55 (75) 98 Height (Feet): 5 Height (Inches): 3.00 Weight (Pounds): 102 General Appearance: cachetic HEENT: other - orally intubated Respiratory/Chest: lungs clear, other - on ventilator Cardiovascular: normal rate, other - Leftarm AV graft Abdomen: soft, non tender, other - GT feeding Extremities: no edema Neurologic/Psychiatric: disoriented Musculoskeletal: atrophy Laboratory Tests Test 03/10/19 04:50 White Blood Count 20.8 K/UL (4.8-10.8) H Red Blood Count 3.36 M/UL (4.20-5.40) L Hemoglobin 10.8 G/DL (12.0-16.0) L Hematocrit 33.4 % (37.0-47.0) L Mean Corpuscular Volume 100 FL (80-99) H Mean Corpuscular Hemoglobin 32.2 PG (27.0-31.0) H Mean Corpuscular Hemoglobin Concent 32.4 G/DL (32.0-36.0) Red Cell Distribution Width 17.1 % (11.6-14.8) H Platelet Count 454 K/UL (150-450) H Mean Platelet Volume 5.9 FL (6.5-10.1) L Neutrophils (%) (Auto) % (45.0-75.0) Lymphocytes (%) (Auto) % (20.0-45.0) Monocytes (%) (Auto) % (1.0-10.0) Eosinophils (%) (Auto) % (0.0-3.0) Basophils (%) (Auto) % (0.0-2.0) Differential Total Cells Counted 100 Neutrophils % (Manual) 87 % (45-75) H Lymphocytes % (Manual) 7 % (20-45) L Monocytes % (Manual) 6 % (1-10) Eosinophils % (Manual) 0 % (0-3) Basophils % (Manual) 0 % (0-2) Band Neutrophils 0 % (0-8) Platelet Estimate Adequate Platelet Morphology Normal Hypochromasia 1+ Anisocytosis 1+ Sodium Level 138 MMOL/L (136-145) Potassium Level 3.3 MMOL/L (3.5-5.1) L Chloride Level 96 MMOL/L (98-107) L Carbon Dioxide Level 26 MMOL/L (21-32) Anion Gap 16 mmol/L (5-15) H Blood Urea Nitrogen 102 mg/dL (7-18) H Creatinine 3.8 MG/DL (0.55-1.30) H Estimat Glomerular Filtration Rate mL/min (>60) Glucose Level 266 MG/DL (74-106) #H Calcium Level 10.2 MG/DL (8.5-10.1) H Random Vancomycin Level 27.0 ug/mL Current Medications Medications (Trade) Dose Ordered Sig/Konrad Route PRN Reason Start Time Stop Time Status Last Admin Dose Admin Acetaminophen (Tylenol) 650 mg Q4H PRN GT Mild Pain/Temp > 100.5 02/20/19 18:00 03/16/19 17:59 03/10/19 11:32 Acetylcysteine (Mucomyst) 100 mg Q6HRT HHN 03/05/19 19:00 03/25/19 06:59 03/10/19 06:55 Albuterol/ Ipratropium (Albuterol/ Ipratropium) 3 ml Q6HRT N 03/05/19 19:00 03/10/19 18:59 03/10/19 06:55 Amlodipine Besylate (Norvasc) 5 mg DAILY GT 03/10/19 09:00 04/09/19 08:59 03/10/19 09:17 Carvedilol (Coreg) 12.5 mg EVERY 12 HOURS GT 03/09/19 09:00 04/08/19 08:59 03/09/19 08:36 Dextrose (Dextrose 50%) 25 ml Q30M PRN IV Hypoglycemia 02/20/19 17:45 03/16/19 15:14 Dextrose (Dextrose 50%) 50 ml Q30M PRN IV Hypoglycemia 02/20/19 17:45 03/16/19 15:14 Epoetin Chau (Epoetin Chau(ESRD on dialysis)) 8,000 unit SAT-SAT-SAT SUBQ 03/11/19 21:00 04/10/19 20:59 Fluconazole/ Sodium Chloride 100 ml @ 100 mls/hr Q24H IV 02/27/19 12:00 03/12/19 11:59 03/10/19 11:32 Heparin Sodium (Porcine) (Heparin 5000 units/ml) 5,000 units EVERY 12 HOURS SUBQ 02/20/19 21:00 03/16/19 20:59 03/10/19 09:18 Heparin Sodium (Porcine) (Heparin Sod 1000 units/ml 10ml) 2,000 unit ONCE PRN IV FOR HD USE ONLY 03/10/19 09:30 03/11/19 23:59 Hydralazine HCl (Apresoline) 25 mg Q6HR PRN GT Sbp above 150 03/03/19 02:45 04/02/19 02:44 03/04/19 15:51 Insulin Aspart (NovoLOG) EVERY 6 HOURS SUBQ 02/20/19 18:00 03/16/19 16:29 03/10/19 11:36 Lansoprazole (Prevacid) 30 mg BID GT 03/01/19 09:00 03/31/19 08:59 03/10/19 09:17 Levothyroxine Sodium (Synthroid) 150 mcg DAILY@0630 GT 02/21/19 06:30 03/17/19 06:29 03/10/19 05:41 Metoclopramide HCl (Reglan) 5 mg Q6H PRN IVP Nausea & Vomiting 02/20/19 18:00 03/20/19 17:59 Ondansetron HCl (Zofran) 4 mg Q6H PRN IVP Nausea & Vomiting 02/20/19 18:00 03/19/19 17:59 Piperacillin Sod/ Tazobactam Sod 2.25 gm/Dextrose 55 ml @ 110 mls/hr Q8HR IVPB 02/26/19 22:00 03/12/19 21:59 03/10/19 05:41 Sodium Chloride 1,000 ml @ 500 mls/hr Q2H PRN IVLG sbp<90 during hd 03/10/19 09:30 03/11/19 23:59 Sucralfate (Carafate) 1 gm Q6HR GT 02/25/19 12:00 03/27/19 11:59 03/10/19 11:31 Vancomycin HCl (Vanco rx to dose) 1 ea DAILY PRN MISC Per rx protocol 03/09/19 11:15 04/08/19 11:14 Kaden Aguilar MD Mar 10, 2019 12:19
--- NOTE | 2019-03-10 13:33 | NUR ---
NURSE NOTES:WOUND CARE NOTES:Pt presented on admission with non-blanching erythema sacrum ,R and L buttocks. At present pt is in ICU and has an APM /JEREMY mattress and is positioned on side with pillows,and with both heels off-loaded. Despite all preventive interventions, Sacrum ,R and L buttocks noted to be more erythematous with increase in size of affected area on buttocks(L)9cm x (W)14cm. Multiple scattered partial thickness wounds that are viable with surrounding non-blanchable erythema that is without induration or elevation in skin temp. No odor or exudate noted. Additionally an area of non-blanchable erythema without fluctuance or induration or elevation in skin temp noted to R trochanter(L)6cm x (W)3cm. An area of non-blanchable erythema without induration or fluctuance noted to R ischium (L)6cm x (W)5cm. R and L heels are boggy but blanchable. Stable dry black skin lesion noted to L nostril. Tx.Plan: Apply Triad Paste to buttocks. Cover sacrum with Optifoam drsg. Change every 3 days and prn. Apply Triad paste to perineal and perianal areas with each incontinence care. Apply Cavilon Skin Barrier to R ischium and R trochanter. Cover each site with Optifoam drsg. Change every 7 days and prn. Reposition at least every 2 hours ior as tolerated. Off-load heels with pillow. APM/JEREMY mattress overlay.
--- NOTE | 2019-03-10 13:36 | NUR ---
NURSE NOTES: Turned and repositioned. Flushed GT with 60cc free water, no residual before flush.
--- NOTE | 2019-03-10 19:15 | NUR ---
RESPIRATORY NOTE: Received pt on AC 14, 400VT, 40%, PEEP +5. Pt intubated w/ ETT 7.5 @ 23cm lipline, secured by anchorfast. Pt disoriented, responds to stimuli. B/S deep. rhonchi, sxn small to moderate amounts of thick, pale-yellow secretions. Both hands on soft restraints to prevent pt from self-extubation. Vent plugged into red outlet, ambubag at bedside. Pt in no apparent distress at this time. Will continue to monitor pt.
--- NOTE | 2019-03-10 19:15 | NUR ---
NURSE NOTES: Report received from WILIAM Harvey. Pt A/Ox1, continues to remain lethargic, slight response to deep pain. monitoring manager shows ST, elevated RR, stable BP. Pt has an ETT 7.[address] place @ 25 cm on lip. Ventilator settings: AC4, VT:400, FiO2:40%, PEEP:5. Advised of failed wean during AM shift. Pt currently showing no signs of acute cardiac or respiratory distress. a GT is present and patent with nepro running @ 40 ml/hr. Rectal tube present and draining appropriately. Accuchecks q6hr. See WCP for skin alterations. A [id number] is present and patent. Bed in lowest position, bed alarms placed, call light within reach. Will continue to monitor and with patients plan of care.
--- NOTE | 2019-03-10 19:20 | NUR ---
HAND-OFF: Report given to WILIAM Stone.
--- NOTE | 2019-03-10 20:05 | NUR ---
NURSE NOTES: Coreg held due to low SBP noted in 90's.
--- NOTE | 2019-03-10 20:15 | Consultation ---
History of Present Illness General Date patient seen: Mar 10, 2019 Chief Complaint: Dyspnea/Respdistress Present Illness HPI 73 year old female with multiple medical comorbidities who is currently in the ICU for some time in critical condition under medical care has been noted to develop worsening wounds. Surgery called to evaluate and assist with care. Patient very ill in ICU and unfortunately mild improvement. She is undergoing maximal medical efforts but very difficult case. She has been bed bound and unable to participate in care or therapy. she is weak and frail with little reserve. Allergies: Coded Allergies: No Known Allergies (Unverified , 05/11/18) Medication History Scheduled Amino Acids/Protein Hydrolys (Pro-Stat Liquid), 30 ML GT BID, (Reported) Amlodipine Besylate* (Amlodipine Besylate*), 10 MG GT DAILY, (Reported) Folic Acid/B Complex & C No.10 (Nephronex Liquid), 50 ML GT DAILY, (Reported) Heparin Sod (Porcine) (Heparin Sodium*), 5,000 UNITS SUBQ EVERY 12 HOURS, ( Reported) Insulin Aspart* (Novolog*), 0 SUBQ BEFORE MEALS AND HS, (Reported) Lansoprazole* (Lansoprazole*), 30 MG GT DAILY Levothyroxine Sodium* (Synthroid*), 175 MCG GT DAILY, (Reported) Lorazepam* (Ativan*), 1 MG GT THREE TIMES A WEEK, (Reported) Metoclopramide Hcl* (Metoclopramide Hcl*), 10 MG GT EVERY 6 HOURS, (Reported) Mineral Oil/Hydrophil Petrolat (Aquaphor Healing Ointment), 50 GM TP TID, ( Reported) Minoxidil* (Loniten*), 2.5 MG GT BID, (Reported) Neomy Sulf/Bacitrac Zn/Poly (Triple Antibiotic Ointment), 1 EACH TP DAILY, ( Reported) Polyethylene Glycol* (Miralax*), 17 GM GT BEDTIME Sucralfate (Sucralfate), 1 GM GT FOUR TIMES A DAY, (Reported) Sucralfate (Sucralfate), 10 ML GT FOUR TIMES A DAY, (Reported) Vitamin B Cmplx/Vit C/Folic AC (Nephro-Ash Tablet), 1 TAB ORAL DAILY, (Reported ) Scheduled PRN Acetaminophen* (Acetaminophen*), 650 MG ORAL Q4HR PRN for Mild Pain/Temp > 100.5 , (Reported) Ipratropium/Albuterol Sulfate (DuoNeb 0.5-3(2.5)mg/3ml), 3 ML HHN Q6HR PRN for Shortness of Breath, (Reported) Lorazepam* (Lorazepam*), 0.5 MG GT Q4HR PRN for For Anxiety, (Reported) Miscellaneous Medications Zinc Oxide (Zinc Oxide), GM TP, (Reported) Patient History Limited by: medical condition History Provided By: Medical Record, PMD Healthcare decision maker Resuscitation status Full Code Advanced Directive on File No Past Medical/Surgical History Past Medical/Surgical History: (1) Hypoxia (2) Stage 4 decubitus ulcer (3) Parotitis (4) Parotitis, acute (5) Fecal impaction (6) Vomiting (7) Gastrostomy tube dependent (8) Hematemesis (9) Malfunction of gastrostomy tube (10) Anemia (11) End stage renal disease on dialysis (12) Pulmonary edema (13) RLL pneumonia (14) Diabetes (15) CHF (congestive heart failure) (16) Pleural effusion, right (17) Respiratory failure Review of Systems ROS Narrative unable to obtain given medical condition Physical Exam General Appearance: mild distress Lines, tubes and drains: other HEENT: other Neck: other Respiratory/Chest: no respiratory distress, no accessory muscle use, decreased breath sounds Cardiovascular/Chest: regular rhythm Abdomen: soft, no organomegaly, no mass Extremities: slow capillary refill, other Skin Exam: warm/dry Last 24 Hour Vital Signs Date Time Temp Pulse Resp B/P (MAP) Pulse Ox O2 Delivery O2 Flow Rate FiO2 03/10/19 19:35 112 25 100 Mechanical Ventilator 40 03/10/19 19:20 111 20 98 Mechanical Ventilator 40 03/10/19 19:13 111 23 40 03/10/19 19:00 112 19 117/56 (76) 100 03/10/19 18:00 114 19 120/65 (83) 100 03/10/19 17:09 112 22 40 03/10/19 17:00 110 19 133/63 (86) 100 03/10/19 16:00 110 03/10/19 16:00 Mechanical Ventilator 03/10/19 16:00 98.9 110 19 142/63 (89) 100 03/10/19 16:00 40 03/10/19 15:00 110 19 133/63 (86) 100 03/10/19 14:53 111 20 40 03/10/19 14:00 105 19 127/57 (80) 100 03/10/19 13:00 99 19 123/58 (79) 100 03/10/19 12:57 95 27 100 Mechanical Ventilator 40 03/10/19 12:52 94 23 40 03/10/19 12:51 93 20 100 Mechanical Ventilator 40 03/10/19 12:02 98.8 03/10/19 12:00 Mechanical Ventilator 03/10/19 12:00 98.8 92 20 110/50 (70) 100 03/10/19 12:00 94 03/10/19 12:00 40 03/10/19 11:00 94 20 120/55 (76) 100 03/10/19 10:42 99 20 40 03/10/19 10:00 96 21 123/53 (76) 100 03/10/19 09:17 89 108/45 03/10/19 09:02 99 03/10/19 09:00 89 108/45 03/10/19 09:00 95 21 117/52 (73) 100 03/10/19 08:52 89 23 40 03/10/19 08:00 40 03/10/19 08:00 93 21 120/70 (87) 100 03/10/19 08:00 90 03/10/19 08:00 Mechanical Ventilator 03/10/19 07:10 95 25 100 Mechanical Ventilator 40 03/10/19 07:00 98.6 90 21 115/46 (69) 100 03/10/19 06:57 91 25 100 Mechanical Ventilator 40 03/10/19 06:55 89 23 40 03/10/19 06:00 86 21 108/45 (66) 100 03/10/19 05:05 84 20 40 03/10/19 05:00 83 21 102/42 (62) 97 03/10/19 04:00 98.2 86 22 112/47 (68) 99 03/10/19 04:00 Mechanical Ventilator 03/10/19 04:00 40 03/10/19 04:00 81 03/10/19 03:27 81 17 40 03/10/19 03:00 82 23 116/38 (64) 98 03/10/19 02:00 84 20 107/33 (57) 99 03/10/19 02:00 85 18 100 Mechanical Ventilator 40 03/10/19 01:50 83 18 98 Mechanical Ventilator 40 03/10/19 01:30 83 18 40 03/10/19 01:00 84 21 93/35 (54) 99 03/10/19 00:00 98.0 83 21 94/37 (56) 99 03/10/19 00:00 40 03/10/19 00:00 98 03/10/19 00:00 Mechanical Ventilator 03/09/19 23:00 77 14 103/35 (57) 99 03/09/19 22:56 78 14 40 03/09/19 22:00 77 22 86/30 (48) 98 03/09/19 21:18 74 20 40 03/09/19 21:00 76 21 92/31 (51) 98 Intake and Output 03/09/19 03/10/19 19:00 07:00 Intake Total 660 ml 620 ml Output Total 0 ml 0 ml Balance 660 ml 620 ml Intake Free Water 180 ml 30 ml IV Total 110 ml Tube Feeding 480 ml 480 ml Output Urine Total 0 ml 0 ml Laboratory Tests Test 03/10/19 04:50 White Blood Count 20.8 K/UL (4.8-10.8) H Red Blood Count 3.36 M/UL (4.20-5.40) L Hemoglobin 10.8 G/DL (12.0-16.0) L Hematocrit 33.4 % (37.0-47.0) L Mean Corpuscular Volume 100 FL (80-99) H Mean Corpuscular Hemoglobin 32.2 PG (27.0-31.0) H Mean Corpuscular Hemoglobin Concent 32.4 G/DL (32.0-36.0) Red Cell Distribution Width 17.1 % (11.6-14.8) H Platelet Count 454 K/UL (150-450) H Mean Platelet Volume 5.9 FL (6.5-10.1) L Neutrophils (%) (Auto) % (45.0-75.0) Lymphocytes (%) (Auto) % (20.0-45.0) Monocytes (%) (Auto) % (1.0-10.0) Eosinophils (%) (Auto) % (0.0-3.0) Basophils (%) (Auto) % (0.0-2.0) Differential Total Cells Counted 100 Neutrophils % (Manual) 87 % (45-75) H Lymphocytes % (Manual) 7 % (20-45) L Monocytes % (Manual) 6 % (1-10) Eosinophils % (Manual) 0 % (0-3) Basophils % (Manual) 0 % (0-2) Band Neutrophils 0 % (0-8) Platelet Estimate Adequate Platelet Morphology Normal Hypochromasia 1+ Anisocytosis 1+ Sodium Level 138 MMOL/L (136-145) Potassium Level 3.3 MMOL/L (3.5-5.1) L Chloride Level 96 MMOL/L (98-107) L Carbon Dioxide Level 26 MMOL/L (21-32) Anion Gap 16 mmol/L (5-15) H Blood Urea Nitrogen 102 mg/dL (7-18) H Creatinine 3.8 MG/DL (0.55-1.30) H Estimat Glomerular Filtration Rate mL/min (>60) Glucose Level 266 MG/DL (74-106) #H Calcium Level 10.2 MG/DL (8.5-10.1) H Random Vancomycin Level 27.0 ug/mL Height (Feet): 5 Height (Inches): 3.00 Weight (Pounds): 102 Medications Current Medications Medications (Trade) Dose Ordered Sig/Konrad Route PRN Reason Start Time Stop Time Status Last Admin Dose Admin Acetaminophen (Tylenol) 650 mg Q4H PRN GT Mild Pain/Temp > 100.5 02/20/19 18:00 03/16/19 17:59 03/10/19 11:32 Acetylcysteine (Mucomyst) 100 mg Q6HRT N 03/05/19 19:00 03/25/19 06:59 03/10/19 19:21 Albuterol/ Ipratropium (Albuterol/ Ipratropium) 3 ml Q6HRT N 03/10/19 19:00 03/15/19 18:59 03/10/19 19:21 Amlodipine Besylate (Norvasc) 5 mg DAILY GT 03/10/19 09:00 04/09/19 08:59 03/10/19 09:17 Carvedilol (Coreg) 12.5 mg EVERY 12 HOURS GT 03/09/19 09:00 04/08/19 08:59 03/09/19 08:36 Dextrose (Dextrose 50%) 25 ml Q30M PRN IV Hypoglycemia 02/20/19 17:45 03/16/19 15:14 Dextrose (Dextrose 50%) 50 ml Q30M PRN IV Hypoglycemia 02/20/19 17:45 03/16/19 15:14 Epoetin Chau (Epoetin Chau(ESRD on dialysis)) 8,000 unit SAT-SAT-SAT SUBQ 03/11/19 21:00 04/10/19 20:59 Fluconazole/ Sodium Chloride 100 ml @ 100 mls/hr Q24H IV 02/27/19 12:00 03/12/19 11:59 03/10/19 11:32 Heparin Sodium (Porcine) (Heparin 5000 units/ml) 5,000 units EVERY 12 HOURS SUBQ 02/20/19 21:00 03/16/19 20:59 03/10/19 09:18 Heparin Sodium (Porcine) (Heparin Sod 1000 units/ml 10ml) 2,000 unit ONCE PRN IV FOR HD USE ONLY 03/10/19 09:30 03/11/19 23:59 Hydralazine HCl (Apresoline) 25 mg Q6HR PRN GT Sbp above 150 03/03/19 02:45 04/02/19 02:44 03/04/19 15:51 Insulin Aspart (NovoLOG) EVERY 6 HOURS SUBQ 02/20/19 18:00 03/16/19 16:29 03/10/19 18:02 Lansoprazole (Prevacid) 30 mg BID GT 03/01/19 09:00 03/31/19 08:59 03/10/19 18:03 Levothyroxine Sodium (Synthroid) 150 mcg DAILY@0630 GT 02/21/19 06:30 03/17/19 06:29 03/10/19 05:41 Metoclopramide HCl (Reglan) 5 mg Q6H PRN IVP Nausea & Vomiting 02/20/19 18:00 03/20/19 17:59 Ondansetron HCl (Zofran) 4 mg Q6H PRN IVP Nausea & Vomiting 02/20/19 18:00 03/19/19 17:59 Piperacillin Sod/ Tazobactam Sod 2.25 gm/Dextrose 55 ml @ 110 mls/hr Q8HR IVPB 02/26/19 22:00 03/12/19 21:59 03/10/19 14:50 Sodium Chloride 1,000 ml @ 500 mls/hr Q2H PRN IVLG sbp<90 during hd 03/10/19 09:30 03/11/19 23:59 Sucralfate (Carafate) 1 gm Q6HR GT 02/25/19 12:00 03/27/19 11:59 03/10/19 18:03 Vancomycin HCl (Vanco rx to dose) 1 ea DAILY PRN MISC Per rx protocol 03/09/19 11:15 04/08/19 11:14 Assessment/Plan Problem List: (1) Decubitus skin ulcer Assessment & Plan: This is a very frail critically ill 73 year old female who presented on admission with non-blanching erythema sacrum, right and left buttocks. Patient is currently in the Intensive Care Unit with maximal care. She has an APM /JEREMY mattress and is often re-positioned on side with pillows as well as both heels off-loaded with pillows. Despite preventive interventions, the sacrum ,right and left buttocks are noted to be more erythematous with increase in size of affected area on buttocks(L) 9cm x (W)14cm. Multiple scattered partial thickness wounds that are viable with surrounding non -blanchable erythema that is without induration or elevation in skin temp. No odor or exudate noted. Additionally an area of non-blanchable erythema without fluctuance or induration or elevation in skin temp noted to R trochanter(L)6cm x (W)3cm. An area of non-blanchable erythema without induration or fluctuance noted to R ischium (L)6cm x (W)5cm. R and L heels are boggy but blanchable. Stable dry black skin lesion noted to L nostril. Tx.Plan: Apply Triad Paste to buttocks. Cover sacrum with Optifoam drsg. Change every 3 days and prn. Apply Triad paste to perineal and perianal areas with each incontinence care. Apply Cavilon Skin Barrier to R ischium and R trochanter. Cover each site with Optifoam drsg. Change every 7 days and prn. Reposition at least every 2 hours ior as tolerated. Off-load heels with pillow. APM/JEREMY mattress overlay. Will continue to monitor closely and with preventative care Nutritional optimization for care ICD Codes: L89.90 - Pressure ulcer of unspecified site, unspecified stage SNOMED: 356487220 (2) Anemia ICD Codes: D64.9 - Anemia, unspecified SNOMED: 786663642 (3) End stage renal disease on dialysis ICD Codes: N18.6 - End stage renal disease; Z99.2 - Dependence on renal dialysis SNOMED: 809022641 (4) Pulmonary edema ICD Codes: J81.1 - Chronic pulmonary edema SNOMED: 82111709 Qualifiers: Qualified Codes: J81.0 - Acute pulmonary edema (5) RLL pneumonia ICD Codes: J18.1 - Lobar pneumonia, unspecified organism SNOMED: 610991192 Qualifiers: Qualified Codes: J18.1 - Lobar pneumonia, unspecified organism (6) Diabetes ICD Codes: E11.9 - Type 2 diabetes mellitus without complications SNOMED: 35185851 (7) CHF (congestive heart failure) ICD Codes: I50.9 - Heart failure, unspecified SNOMED: 81976983 (8) Respiratory failure ICD Codes: J96.90 - Respiratory failure, unspecified, unspecified whether with hypoxia or hypercapnia SNOMED: 244398952 Qualifiers: Qualified Codes: J96.01 - Acute respiratory failure with hypoxia; J96.02 - Acute respiratory failure with hypercapnia (9) Hematemesis ICD Codes: K92.0 - Hematemesis SNOMED: 2928184 (10) Fecal impaction ICD Codes: K56.41 - Fecal impaction SNOMED: 59660799 (11) Parotitis ICD Codes: K11.20 - Sialoadenitis, unspecified SNOMED: 86829059 (12) Hypoxia ICD Codes: R09.02 - Hypoxemia SNOMED: 522056011 (13) Vomiting ICD Codes: R11.10 - Vomiting, unspecified SNOMED: 831339363 (14) Pleural effusion, right ICD Codes: J90 - Pleural effusion, not elsewhere classified SNOMED: 49799012 (15) Parotitis, acute ICD Codes: K11.21 - Acute sialoadenitis SNOMED: 2234193, 51723955 (16) Malfunction of gastrostomy tube ICD Codes: K94.23 - Gastrostomy malfunction SNOMED: 114095915 (17) Gastrostomy tube dependent Assessment & Plan: DAILY ESTIMATED NEEDS: Needs based on ESRD/ HD, UNDERWEIGHT, WT LOSS, WOUND, CRITICAL CARE/ 41kg 25-40 kcals/kg 0291-3684 total kcals 1.5-2 g protein/kg 61-82 g total protein Fluid per MD, on HD NUTRITION DIAGNOSIS: * Swallowing difficulty R/T dysphagia, 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 * Increased kcal/prot needs R/T renal dysfunction, ESRD, wound healing, underweight status as evidenced by pt on HD, admitted w/ non-blanchable erythemas w/ partial thickness pressure injuries, refer to WC eval, low BMI per guidelines, w/ severe generalized wasting. CURRENT TF:Nepro INCREASED to 50ml/hr x 22 hrs ENTERAL NUTRITION RECOMMENDATIONS: Nepro @ 40ml/hr x 22 hrs + Prosource 1 pkt daily to provide 880ml, 1584kcal, 71g + 11g prot, 640ml free water * Rec Nepro @ 40ml/hr x 22 hrs : meets 100% est needs * Add Prosource 1pkt daily to better meet protein needs * Hold 1 hr before and after Synthroid med * HOB over 30 degrees/ water flush per MD ADDITIONAL RECOMMENDATIONS: * Per SNF record: HT=66", JB=741rol (02/09/19) -> RECALIBRATE BEDSCALE: fluctuating daily wts-> 102 92 127 105 * Obtain dry wt post HD * Wound healing: continue Zeke 1pkt BID * Probiotics for diarrhea * Rec long acting insulin for improved BG control ICD Codes: Z93.1 - Gastrostomy status SNOMED: 597192648, 957625112 (18) Stage 4 decubitus ulcer ICD Codes: L89.94 - Pressure ulcer of unspecified site, stage 4 SNOMED: 102333125 Justice Rajan Mar 10, 2019 20:15
--- NOTE | 2019-03-10 20:27 | NUR ---
CODE BLUE: Code blue initiated after noted bradycardia that turned into asystole. No pulse felt. Pads and board placed, CPR initiated. Code ran by Dr. Charlton. See Code sheet for additional details. Central line placed and additional bicarb and calcium chloride given after code per request of ERMD.
--- NOTE | 2019-03-10 20:47 | NUR ---
RESPIRATORY NOTE: LORENZO STOVALL called for this already intubated pt @ 2026. (see code blue sheet). Pt placed back on previous vent settings of AC 14, 400VT, 100%, PEEP +5. ABG to be drawn. Pt stable at this time. Will continue to monitor pt.
--- NOTE | 2019-03-10 20:57 | NUR ---
NURSE NOTES: Dr. Cannon notified. Orders for ABG, 1L NS bolus, and levophed PRN.
--- NOTE | 2019-03-10 21:11 | Emergency Room Report ---
History of Present Illness General Chief Complaint: Dyspnea/Respdistress Source: Medical Record, PMD Present Illness Allergies: Coded Allergies: No Known Allergies (Unverified , 05/11/18) Nursing Documentation-[facility] Past Medical History: No History, Except For Hx Cardiac Problems: No - anemia Hx Hypertension: Yes Hx Diabetes: Yes Hx Cancer: No Hx Gastrointestinal Problems: Yes Hx Dialysis: Yes - tue, thur, sat Hx Neurological Problems: Yes - organic brain syndrome Hx Weakness: Yes Physical Exam Vital Signs Date Time Temp Pulse Resp B/P (MAP) Pulse Ox O2 Delivery O2 Flow Rate FiO2 03/06/19 07:00 85 14 100 Mechanical Ventilator 40 03/06/19 07:00 98.0 140/90 (107) Procedures Central Line Central Line : Consent: Emergent Central Line Lumen: triple Maximal Sterile Barrier Tech: yes cap, yes mask, yes sterile gown, yes sterile gloves, yes large sterile sheet, yes hand hygiene, yes chlorhexidine prep Central Line Postion: femoral (R) Complications: none Central Line Post Position: sutured Attempts: One Patient Tolerated: Well Complications: None CPR/Code Blue CPR/Code Blue Narrative I was called upstairs to a CODE BLUE Upon arrival the patient appears to be in V. fib/V. tach patient is cardioverted several times CPR continues patient provided with magnesium Atropine Sodium bicarbonate refer to the code sheet for full specifics Patient also requires central line placement as she is in significant distress requiring improved IV placement refer to the note for that CPR continued patient again required cardioversion I did perform a stacking Cardioversion as well After further input patient does have palpable pulses blood pressure is 110/70 heart rate 85 Patient appears in acute distress has multiple significant comorbidities and has an extremely poor prognosis Care is handed back to the primary admitting physicians in critical condition Medical Decision Making Diagnostic Impression: Primary Impression: Pulmonary edema Additional Impressions: RLL pneumonia Respiratory failure Pleural effusion, right Last Vital Signs Date Time Temp Pulse Resp B/P (MAP) Pulse Ox O2 Delivery O2 Flow Rate FiO2 03/10/19 20:50 84 14 100 03/10/19 19:35 100 Mechanical Ventilator 03/10/19 19:00 117/56 (76) 03/10/19 16:00 98.9 Disposition: ADMITTED INPATIENT Condition: Critical Scripts Lansoprazole* (LANSOPRAZOLE*) 30 Mg Capsule. 30 MG GT DAILY for 30 Days, CAP 9 Refills Prov: Raul Cannon MD 02/20/19 Referrals: Raul Cannon MD (PCP) Delvis Charlton DO Mar 10, 2019 21:10
--- NOTE | 2019-03-10 21:35 | NUR ---
NURSE NOTES: Dr. Ramirez contacted regarding ABG results. Awaiting response.
--- NOTE | 2019-03-10 21:45 | NUR ---
NURSE NOTES: Dr. Cannon contacted regarding elevated HR in 130's after administration of dopamine. Current SBP in 100/57 Advised to attempt to wean off dopamine and finish bolus of fluids. No new orders given.
--- NOTE | 2019-03-10 21:51 | NUR ---
NURSE NOTES: Dr. Ramirez contacted once more. Awaiting response
--- NOTE | 2019-03-10 21:56 | NUR ---
NURSE NOTES: Orders received from Dr. Ramirez for change of ventilator settings and 2 amps of bicarb. IVP.
--- NOTE | 2019-03-10 21:59 | NUR ---
RESPIRATORY NOTE: MD James ordered new vent settings for pt based on post-code ABG. Pt now placed on AC 28, 500VT, FiO2 titrated to 50%, PEEP +5. Pt obtunded, no response to stimuli. Pt tolerating settings,ABG to be drawn again in 30mins. Will continue to monitor pt.
[2019-03-10] MEDS ORDERED: Sodium Bicarbonate 50ml Carp IV SCH (22:00)
[2019-03-10] MEDS: DOPamine 400mg/250ml 250 ML IV SCH (22:19)
--- NOTE | 2019-03-10 22:49 | NUR ---
RESPIRATORY NOTE: New vent settings ordered by MD James for this pt based on previous ABG. Pt now on AC 20, 500VT, 35%, PEEP +5. Pt tolerating settings well, in no apparent distress at this time. follow up ABG ordered for tomorrow AM. Will continue to monitor pt.
[2019-03-11] VITALS (28 sets, daily range): BP systolic 72–171; BP diastolic 29–94
--- NOTE | 2019-03-11 | NUR ---
NURSE NOTES: Pt awake and alert. Responsive to deep pain. VSS with continuance of levophed running @ 30 mcg/min and dopamine @ 1 mcg/kg/min. Will continue to monitor.
--- NOTE | 2019-03-11 00:30 | Progress Note ---
CARDIOLOGY PROGRESS NOTE DATE: 03/10/2019 SUBJECTIVE: The patient remains on ventilatory support. Weaning efforts are ongoing. OBJECTIVE: VITAL SIGNS: Blood pressure 108/45, pulse 86, and respirations 21. Monitored rhythm, sinus. LUNGS: Bilateral breath sounds. Scattered rhonchi. HEART: Regular rhythm and rate. Normal S1, S2. ABDOMEN: Soft. EXTREMITIES: There is trace edema. LABORATORY DATA: White count 20.8, hemoglobin 10.8. Sodium 138, potassium 3.3, bicarb 26, BUN 102, and creatinine 3.8. IMPRESSION: 1. Respiratory failure. 2. Acute on chronic diastolic congestive heart failure. 3. Sepsis. 4. Healthcare-acquired pneumonia. 5. Hypokalemia. 6. End-stage renal disease. 7. Pleural effusions. PLAN: 1. Broad spectrum antibiotics. 2. Repeat cultures are pending. 3. Unable to wean at this time. 4. Continue cardiovascular regimen. 5. Hemodialysis with ultrafiltration. Wilmer Hoyos M.D. DR: AUGUSTA JOB#: [id number] CC:
[2019-03-11] MEDS: Sucralfate 1gm tab GT SCH ×3 (01:02→12:31)
[2019-03-11] MEDS: NovoLOG Insulin Flexpen SUBQ SCH ×3 (01:03→12:33)
[2019-03-11] MEDS: Albuterol/Ipratropium 3ml neb HHN SCH ×3 (01:13→13:00)
--- NOTE | 2019-03-11 02:00 | NUR ---
NURSE NOTES: Pt repositioned. VS remain stable. GT flushed with 60 ml of sterile water.
--- NOTE | 2019-03-11 04:43 | NUR ---
RESPIRATORY NOTE: Pt's HR went vannesa again & led to asystole. Eusebio STOVALL called, high quality CPR initiated right away. MD Zurdo facilitated the code (see code blue sheet). Pt successfully resuscitated at 0438 & was placed back on previous vent settings of: AC 20, 500VT 100%, PEEP +5. Awaiting MD orders. Will continue to monitor pt.
--- NOTE | 2019-03-11 06:00 | NUR ---
NURSE NOTES: Pt's VS remain stable at the moment with levophed 30 mcg/min and dopamine drip 20 mcg/kg/min. Showing no signs of acute distress.
--- NOTE | 2019-03-11 06:06 | Emergency Room Report ---
History of Present Illness General Chief Complaint: Dyspnea/Respdistress Source: Medical Record, PMD Present Illness Allergies: Coded Allergies: No Known Allergies (Unverified , 05/11/18) Nursing Documentation-[facility] Past Medical History: No History, Except For Hx Cardiac Problems: No - anemia Hx Hypertension: Yes Hx Diabetes: Yes Hx Cancer: No Hx Gastrointestinal Problems: Yes Hx Dialysis: Yes - tue, thur, sat Hx Neurological Problems: Yes - organic brain syndrome Hx Weakness: Yes Physical Exam Vital Signs Date Time Temp Pulse Resp B/P (MAP) Pulse Ox O2 Delivery O2 Flow Rate FiO2 03/07/19 07:00 100 21 130/56 (80) 98 03/07/19 07:16 40 03/07/19 07:19 Mechanical Ventilator 03/07/19 08:00 98.5 Procedures CPR/Code Blue CPR/Code Blue Narrative I was called to evaluate the patient after cardiac arrest. Patient was noted to have absent pulses and was undergoing CPR prior to my arrival. She been given epinephrine. Patient was noted to have irregular rhythm on manager cardiac. Patient had no associated pulse. Patient was given medications as per code sheet. See code sheet for full medications. She had subsequent return of spontaneous circulation. Medical Decision Making Diagnostic Impression: Primary Impression: Pulmonary edema Qualified Codes: J81.0 - Acute pulmonary edema Additional Impressions: RLL pneumonia Qualified Codes: J18.1 - Lobar pneumonia, unspecified organism Respiratory failure Qualified Codes: J96.01 - Acute respiratory failure with hypoxia; J96.02 - Acute respiratory failure with hypercapnia Pleural effusion, right Last Vital Signs Date Time Temp Pulse Resp B/P (MAP) Pulse Ox O2 Delivery O2 Flow Rate FiO2 03/11/19 04:45 101 20 100 03/11/19 03:35 108/52 03/11/19 01:28 100 Mechanical Ventilator 03/10/19 20:00 98.0 Disposition: ADMITTED INPATIENT Condition: Critical Scripts Lansoprazole* (LANSOPRAZOLE*) 30 Mg Capsule. 30 MG GT DAILY for 30 Days, CAP 9 Refills Prov: Raul Cannon MD 02/20/19 Referrals: Raul Cannon MD (PCP) Tommie Renner MD Mar 11, 2019 06:06
[2019-03-11 06:14] LABS: HEMATOCRIT 34.1 % (37.0-47.0); MEAN CORPUSCULAR VOLUME 101 FL (80-99); PLATELET COUNT 503 K/UL (150-450); RED BLOOD COUNT 3.37 M/UL (4.20-5.40); RED CELL DISTRIBUTION WIDTH 17.3 % (11.6-14.8)
[2019-03-11] MEDS: Piperacillin/Tazobactam 2.25 GM in D5W 55 ML IVPB SCH (06:20)
[2019-03-11 06:28] LABS: ALANINE AMINOTRANSFERASE 106 U/L (12-78); ALBUMIN 2.7 G/DL (3.4-5.0); ALBUMIN/GLOBULIN RATIO 0.5 (1.0-2.7); ALKALINE PHOSPHATASE 101 U/L (46-116); ANION GAP 27 mmol/L (5-15); ASPARTATE AMINO TRANSFERASE 206 U/L (15-37); BILIRUBIN,TOTAL 0.5 MG/DL (0.2-1.0); BLOOD UREA NITROGEN 141 mg/dL (7-18); CALCIUM 10.8 MG/DL (8.5-10.1); CARBON DIOXIDE 17 MMOL/L (21-32); CHLORIDE 96 MMOL/L (98-107); CREATININE 4.8 MG/DL (0.55-1.30); PHOSPHORUS 7.9 MG/DL (2.5-4.9); SODIUM 140 MMOL/L (136-145)
[2019-03-11 06:38] LABS: WHITE BLOOD COUNT 26.3 K/UL (4.8-10.8)
--- NOTE | 2019-03-11 07:45 | NUR ---
RESPIRATORY NOTE: Received pt on vent setting: AC 36-157cw-341% peep 5. Pt is intubated with ETT 7.5 @23cm lips line, secure by anchor fast. Pt's eyes open but unable to follow simple commands. Breathing TX Duoneb and Mucomyst given without any advert affects. Darren rhonchi diminished B/S heard upon auscultation, endotracheal suctioned small amount of thick maxwell yellow secretions and oral suctioned small amount of thick clear secretions without incident.Pt is resting comfortably in the bed, no SOB or resp distress noted. Alarms are set and audible, vent is plugged into the red outlet, ambu bag is at bedside. ABG done and reported to RN Estela. No weaning today due to pt was in code blue last night.Will continue to monitor.
--- NOTE | 2019-03-11 08:00 | NUR ---
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 intubated 7.5 25 cm lipline AC 20 VT 500 Fio2 100% peep of 5. NPO at this time. Rectal tube intact. Anuric. Skin issues see WCP. R FEM TLC AV SHUNT L UPPPER ARM. Levophed at 30 mcg/hr. Dopamine at 20 mcg/min. Bilateral restraints intact at this time due to active range of involuntary motions / reaching towards tubes and devices. will continue plan of care. 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 intubated 7.5 25 cm lipline AC 20 VT 500 Fio2 100% peep of 5. NPO at this time. Rectal tube intact. Anuric. Skin issues see WCP. R FEM TLC AV SHUNT L UPPPER ARM. Levophed at 30 mcg/hr. Dopamine at 20 mcg/min. Bilateral restraints removed during assembler 1st shift. will continue plan of care.
--- NOTE | 2019-03-11 08:18 | Nephrology Progress Note ---
Assessment/Plan Plan Respiratory Failure due to intractable CHF Worsening septic shock.! Trying to wean off vent. Marasmus Starting decubiti. Malnutrition Poor Prognosis. Holding HD. See orders. Subjective Subjective In ICU. On vent. Coded last night. On 2 pressors. Objective Objective Last 24 Hour Vital Signs Date Time Temp Pulse Resp B/P (MAP) Pulse Ox O2 Delivery O2 Flow Rate FiO2 03/11/19 07:50 70 03/11/19 07:45 118 22 100 Mechanical Ventilator 100 03/11/19 07:24 115 23 100 03/11/19 07:24 115 3 100 Mechanical Ventilator 35 03/11/19 07:00 118 18 127/59 (81) 100 03/11/19 06:30 124 18 124/64 (84) 03/11/19 06:19 116/59 03/11/19 06:00 127 18 129/60 (83) 03/11/19 06:00 116/59 03/11/19 06:00 116/59 03/11/19 05:30 111 22 93/29 (50) 03/11/19 05:00 101/64 03/11/19 05:00 101/64 03/11/19 05:00 114 24 101/64 (76) 03/11/19 04:45 101 20 100 03/11/19 04:30 132 19 171/94 (119) 03/11/19 04:00 Mechanical Ventilator 03/11/19 04:00 97.7 101 14 72/33 (46) 03/11/19 04:00 40 03/11/19 04:00 105 03/11/19 04:00 58/16 03/11/19 04:00 58/16 03/11/19 03:35 108/52 03/11/19 03:30 106 13 108/52 (70) 03/11/19 03:00 105/54 03/11/19 03:00 105/54 03/11/19 03:00 101 15 117/69 (85) 03/11/19 02:53 102 20 35 03/11/19 02:30 98 12 89/44 (59) 03/11/19 02:00 94/45 03/11/19 02:00 94/45 03/11/19 02:00 99 15 104/50 (68) 03/11/19 01:53 67/22 03/11/19 01:30 103 20 87/47 (60) 03/11/19 01:28 103 20 100 Mechanical Ventilator 35 03/11/19 01:13 101 20 100 Mechanical Ventilator 35 03/11/19 01:12 101 20 35 03/11/19 01:00 87/47 03/11/19 01:00 87/47 03/11/19 01:00 101 20 120/64 (82) 03/11/19 00:30 103 20 103/61 (75) 03/11/19 00:00 40 03/11/19 00:00 120 03/11/19 00:00 103/61 03/11/19 00:00 103/61 03/11/19 00:00 Mechanical Ventilator 03/11/19 00:00 97.9 108 20 118/51 (73) 03/10/19 23:45 115 19 116/60 (78) 03/10/19 23:30 103 19 103/47 (65) 03/10/19 23:30 116/60 03/10/19 23:15 118 20 128/63 (84) 03/10/19 23:00 122 20 115/53 (73) 03/10/19 23:00 128/63 03/10/19 23:00 128/63 03/10/19 22:49 35 03/10/19 22:46 123 28 50 03/10/19 22:45 124 24 141/68 (92) 03/10/19 22:30 120 28 118/56 (76) 03/10/19 22:19 70/27 03/10/19 22:15 128 28 122/63 (82) 100 03/10/19 22:00 91 26 80/51 (61) 03/10/19 22:00 85/46 03/10/19 21:59 50 03/10/19 21:45 130 16 110/57 (74) 03/10/19 21:30 135 17 119/59 (79) 03/10/19 21:27 64/76 03/10/19 21:15 106 14 98/48 (65) 100 03/10/19 21:00 72 14 66/27 (40) 03/10/19 20:50 84 14 100 03/10/19 20:00 40 03/10/19 20:00 98.0 80 19 94/45 (61) 87 03/10/19 20:00 Mechanical Ventilator 03/10/19 20:00 111 03/10/19 19:35 112 25 100 Mechanical Ventilator 40 03/10/19 19:20 111 20 98 Mechanical Ventilator 40 03/10/19 19:13 111 23 40 03/10/19 19:00 112 19 117/56 (76) 100 03/10/19 18:00 114 19 120/65 (83) 100 03/10/19 17:09 112 22 40 03/10/19 17:00 110 19 133/63 (86) 100 03/10/19 16:00 110 03/10/19 16:00 Mechanical Ventilator 03/10/19 16:00 98.9 110 19 142/63 (89) 100 03/10/19 16:00 40 03/10/19 15:00 110 19 133/63 (86) 100 03/10/19 14:53 111 20 40 03/10/19 14:00 105 19 127/57 (80) 100 03/10/19 13:00 99 19 123/58 (79) 100 03/10/19 12:57 95 27 100 Mechanical Ventilator 40 03/10/19 12:52 94 23 40 03/10/19 12:51 93 20 100 Mechanical Ventilator 40 03/10/19 12:02 98.8 03/10/19 12:00 Mechanical Ventilator 03/10/19 12:00 98.8 92 20 110/50 (70) 100 03/10/19 12:00 94 03/10/19 12:00 40 03/10/19 11:00 94 20 120/55 (76) 100 03/10/19 10:42 99 20 40 03/10/19 10:00 96 21 123/53 (76) 100 03/10/19 09:17 89 108/45 03/10/19 09:02 99 03/10/19 09:00 89 108/45 03/10/19 09:00 95 21 117/52 (73) 100 03/10/19 08:52 89 23 40 Intake and Output 03/10/19 03/11/19 19:00 07:00 Intake Total 600 ml 1433.035 ml Output Total 500 ml 1200 ml Balance 100 ml 233.035 ml Intake Free Water 120 ml IV Total 1153.035 ml Tube Feeding 480 ml 280 ml Output Urine Total 0 ml 0 ml Stool Total 500 ml 1200 ml Laboratory Tests 03/10/19 21:11: Arterial Blood pH 7.069*L, Arterial Blood Partial Pressure CO2 70.5*H, Arterial Blood Partial Pressure O2 > 494.5H, Arterial Blood HCO3 19.9L, Arterial Blood Oxygen Saturation 99.5, Arterial Blood Base Excess -10.8*L, Zachary Test Positive 03/10/19 22:30: Arterial Blood pH 7.475H, Arterial Blood Partial Pressure CO2 31.4L, Arterial Blood Partial Pressure O2 249.6H, Arterial Blood HCO3 22.6, Arterial Blood Oxygen Saturation 99.1, Arterial Blood Base Excess -0.3, Zachary Test Positive 03/11/19 04:55: White Blood Count 26.3*H, Red Blood Count 3.37L, Hemoglobin 11.0L, Hematocrit 34.1L, Mean Corpuscular Volume 101H, Mean Corpuscular Hemoglobin 32.5H, Mean Corpuscular Hemoglobin Concent 32.1, Red Cell Distribution Width 17.3H, Platelet Count 503H, Mean Platelet Volume 5.9L, Neutrophils (%) (Auto) , Lymphocytes (%) (Auto) , Monocytes (%) (Auto) , Eosinophils (%) (Auto) , Basophils (%) (Auto) , Differential Total Cells Counted 100, Neutrophils % ( Manual) 72, Lymphocytes % (Manual) 14L, Monocytes % (Manual) 14H, Eosinophils % (Manual) 0, Basophils % (Manual) 0, Band Neutrophils 0, Platelet Estimate Adequate, Platelet Morphology Normal, Hypochromasia 1+, Anisocytosis 1+, Macrocytosis 1+, Sodium Level 140, Potassium Level 4.0, Chloride Level 96L, Carbon Dioxide Level 17L, Anion Gap 27H, Blood Urea Nitrogen 141H, Creatinine 4.8H, Estimat Glomerular Filtration Rate , Glucose Level 377#H, Calcium Level 10.8H, Phosphorus Level 7.9H, Total Bilirubin 0.5, Aspartate Amino Transf (AST/ SGOT) 206H, Alanine Aminotransferase (ALT/SGPT) 106H, Alkaline Phosphatase 101, Total Protein 8.2, Albumin 2.7L, Globulin 5.5, Albumin/Globulin Ratio 0.5L 03/11/19 07:30: Arterial Blood pH 7.441, Arterial Blood Partial Pressure CO2 28.6L, Arterial Blood Partial Pressure O2 385.6H, Arterial Blood HCO3 19.0L, Arterial Blood Oxygen Saturation 99.6, Arterial Blood Base Excess -3.9L, Zachary Test Positive Height (Feet): 5 Height (Inches): 3.00 Weight (Pounds): 100 Objective Intubated, on vent. [place] CV RR Lungs B relatively CTA! Abd SNT. BS + E No CCE Raul Cannon MD Mar 11, 2019 08:18
[2019-03-11] MEDS: DOPamine 400mg/250ml 250 ML IV SCH (09:14)
--- NOTE | 2019-03-11 09:17 | NUR ---
RADIOLOGY DEPT., CHEST X-RAY DONE.-P.DYE
[2019-03-11] MEDS: Heparin 5000 units/ml inj SUBQ SCH (09:19)
--- NOTE | 2019-03-11 09:48 | Infectious Diseases Prog Note ---
Assessment/Plan Assessment/Plan A; 1. Possible pneumonia 2. Pleural effusions. 3. Congestive heart failure. 4. Renal failure, on dialysis. 5. Sick sinus syndrome. 6. Necrotizing esophagitis. 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 Acute respiratory failure 9. Worsening Leukocytosis 10. cardiac arrest 11. shock PLAN: 1. Continue , Vancomycin & fluconazole 2. Change Zosyn to Meropenem 3. Poor prognosis Subjective ROS Limited/Unobtainable: Yes Cardiovascular: Reports: other - coded in am, on maximal dose of pressors Allergies: Coded Allergies: No Known Allergies (Unverified , 05/11/18) Objective Vital Signs Last 24 Hour Vital Signs Date Time Temp Pulse Resp B/P (MAP) Pulse Ox O2 Delivery O2 Flow Rate FiO2 03/11/19 09:30 112 21 102/50 (67) 100 03/11/19 09:14 102/39 03/11/19 09:06 112/62 03/11/19 09:05 50 03/11/19 09:04 113 22 50 03/11/19 09:00 112 21 102/39 (60) 100 03/11/19 08:30 111 21 109/46 (67) 100 03/11/19 08:29 100 115/70 03/11/19 08:00 98.4 113 18 97/45 (62) 100 03/11/19 08:00 Mechanical Ventilator 03/11/19 08:00 70 03/11/19 08:00 108 03/11/19 07:50 70 03/11/19 07:50 70 03/11/19 07:45 118 22 100 Mechanical Ventilator 100 03/11/19 07:24 115 23 100 03/11/19 07:24 115 3 100 Mechanical Ventilator 35 03/11/19 07:00 118 18 127/59 (81) 100 03/11/19 06:30 124 18 124/64 (84) 03/11/19 06:19 116/59 03/11/19 06:00 127 18 129/60 (83) 03/11/19 06:00 116/59 03/11/19 06:00 116/59 03/11/19 05:30 111 22 93/29 (50) 03/11/19 05:00 101/64 03/11/19 05:00 101/64 03/11/19 05:00 114 24 101/64 (76) 03/11/19 04:45 101 20 100 03/11/19 04:30 132 19 171/94 (119) 03/11/19 04:00 Mechanical Ventilator 03/11/19 04:00 97.7 101 14 72/33 (46) 03/11/19 04:00 40 03/11/19 04:00 105 03/11/19 04:00 58/16 03/11/19 04:00 58/16 03/11/19 03:35 108/52 03/11/19 03:30 106 13 108/52 (70) 03/11/19 03:00 105/54 03/11/19 03:00 105/54 03/11/19 03:00 101 15 117/69 (85) 03/11/19 02:53 102 20 35 03/11/19 02:30 98 12 89/44 (59) 03/11/19 02:00 94/45 03/11/19 02:00 94/45 03/11/19 02:00 99 15 104/50 (68) 03/11/19 01:53 67/22 03/11/19 01:30 103 20 87/47 (60) 03/11/19 01:28 103 20 100 Mechanical Ventilator 35 03/11/19 01:13 101 20 100 Mechanical Ventilator 35 03/11/19 01:12 101 20 35 03/11/19 01:00 87/47 03/11/19 01:00 87/47 03/11/19 01:00 101 20 120/64 (82) 03/11/19 00:30 103 20 103/61 (75) 03/11/19 00:00 40 03/11/19 00:00 120 03/11/19 00:00 103/61 03/11/19 00:00 103/61 03/11/19 00:00 Mechanical Ventilator 03/11/19 00:00 97.9 108 20 118/51 (73) 03/10/19 23:45 115 19 116/60 (78) 03/10/19 23:30 103 19 103/47 (65) 03/10/19 23:30 116/60 03/10/19 23:15 118 20 128/63 (84) 03/10/19 23:00 122 20 115/53 (73) 03/10/19 23:00 128/63 6/11/19 23:00 128/63 03/10/19 22:49 35 03/10/19 22:46 123 28 50 03/10/19 22:45 124 24 141/68 (92) 03/10/19 22:30 120 28 118/56 (76) 03/10/19 22:19 70/27 03/10/19 22:15 128 28 122/63 (82) 100 03/10/19 22:00 91 26 80/51 (61) 03/10/19 22:00 85/46 03/10/19 21:59 50 03/10/19 21:45 130 16 110/57 (74) 03/10/19 21:30 135 17 119/59 (79) 03/10/19 21:27 64/76 03/10/19 21:15 106 14 98/48 (65) 100 03/10/19 21:00 72 14 66/27 (40) 03/10/19 20:50 84 14 100 03/10/19 20:00 40 03/10/19 20:00 98.0 80 19 94/45 (61) 87 03/10/19 20:00 Mechanical Ventilator 03/10/19 20:00 111 03/10/19 19:35 112 25 100 Mechanical Ventilator 40 03/10/19 19:20 111 20 98 Mechanical Ventilator 40 03/10/19 19:13 111 23 40 03/10/19 19:00 112 19 117/56 (76) 100 03/10/19 18:00 114 19 120/65 (83) 100 03/10/19 17:09 112 22 40 03/10/19 17:00 110 19 133/63 (86) 100 03/10/19 16:00 110 03/10/19 16:00 Mechanical Ventilator 03/10/19 16:00 98.9 110 19 142/63 (89) 100 03/10/19 16:00 40 03/10/19 15:00 110 19 133/63 (86) 100 03/10/19 14:53 111 20 40 03/10/19 14:00 105 19 127/57 (80) 100 03/10/19 13:00 99 19 123/58 (79) 100 03/10/19 12:57 95 27 100 Mechanical Ventilator 40 6/11/19 12:52 94 23 40 03/10/19 12:51 93 20 100 Mechanical Ventilator 40 03/10/19 12:02 98.8 03/10/19 12:00 Mechanical Ventilator 03/10/19 12:00 98.8 92 20 110/50 (70) 100 03/10/19 12:00 94 03/10/19 12:00 40 03/10/19 11:00 94 20 120/55 (76) 100 03/10/19 10:42 99 20 40 03/10/19 10:00 96 21 123/53 (76) 100 Height (Feet): 5 Height (Inches): 3.00 Weight (Pounds): 100 General Appearance: cachetic HEENT: other - orally intubated Respiratory/Chest: lungs clear, other - on ventilator Cardiovascular: tachycardia Abdomen: soft, non tender, other - GT & rectal tues Extremities: no edema Neurologic/Psychiatric: unresponsiveness Microbiology Date/Time Source Procedure Growth Status 03/10/19 13:00 Stool Clostridium difficile Toxin Assay - Final Complete Laboratory Tests Test 03/10/19 21:11 03/10/19 22:30 03/11/19 04:55 03/11/19 07:30 Arterial Blood pH 7.069 (7.350-7.450) 7.475 (7.350-7.450) 7.441 (7.350-7.450) Arterial Blood Partial Pressure CO2 70.5 mmHg (35.0-45.0) *H 31.4 mmHg (35.0-45.0) L 28.6 mmHg (35.0-45.0) L Arterial Blood Partial Pressure O2 > 494.5 mmHg (75.0-100.0) H 249.6 mmHg (75.0-100.0) H 385.6 mmHg (75.0-100.0) H Arterial Blood HCO3 19.9 mmol/L (22.0-26.0) L 22.6 mmol/L (22.0-26.0) 19.0 mmol/L (22.0-26.0) L Arterial Blood Oxygen Saturation 99.5 % (95-100) 99.1 % (95-100) 99.6 % (95-100) Arterial Blood Base Excess -10.8 (-2-2) *L -0.3 (-2-2) -3.9 (-2-2) L Zachary Test Positive Positive Positive White Blood Count 26.3 K/UL (4.8-10.8) *H Red Blood Count 3.37 M/UL (4.20-5.40) L Hemoglobin 11.0 G/DL (12.0-16.0) L Hematocrit 34.1 % (37.0-47.0) L Mean Corpuscular Volume 101 FL (80-99) H Mean Corpuscular Hemoglobin 32.5 PG (27.0-31.0) H Mean Corpuscular Hemoglobin Concent 32.1 G/DL (32.0-36.0) Red Cell Distribution Width 17.3 % (11.6-14.8) H Platelet Count 503 K/UL (150-450) H Mean Platelet Volume 5.9 FL (6.5-10.1) L Neutrophils (%) (Auto) % (45.0-75.0) Lymphocytes (%) (Auto) % (20.0-45.0) Monocytes (%) (Auto) % (1.0-10.0) Eosinophils (%) (Auto) % (0.0-3.0) Basophils (%) (Auto) % (0.0-2.0) Differential Total Cells Counted 100 Neutrophils % (Manual) 72 % (45-75) Lymphocytes % (Manual) 14 % (20-45) L Monocytes % (Manual) 14 % (1-10) H Eosinophils % (Manual) 0 % (0-3) Basophils % (Manual) 0 % (0-2) Band Neutrophils 0 % (0-8) Platelet Estimate Adequate Platelet Morphology Normal Hypochromasia 1+ Anisocytosis 1+ Macrocytosis 1+ Sodium Level 140 MMOL/L (136-145) Potassium Level 4.0 MMOL/L (3.5-5.1) Chloride Level 96 MMOL/L (98-107) L Carbon Dioxide Level 17 MMOL/L (21-32) L Anion Gap 27 mmol/L (5-15) H Blood Urea Nitrogen 141 mg/dL (7-18) H Creatinine 4.8 MG/DL (0.55-1.30) H Estimat Glomerular Filtration Rate mL/min (>60) Glucose Level 377 MG/DL (74-106) #H Calcium Level 10.8 MG/DL (8.5-10.1) H Phosphorus Level 7.9 MG/DL (2.5-4.9) H Total Bilirubin 0.5 MG/DL (0.2-1.0) Aspartate Amino Transf (AST/SGOT) 206 U/L (15-37) H Alanine Aminotransferase (ALT/SGPT) 106 U/L (12-78) H Alkaline Phosphatase 101 U/L (46-116) Total Protein 8.2 G/DL (6.4-8.2) Albumin 2.7 G/DL (3.4-5.0) L Globulin 5.5 g/dL Albumin/Globulin Ratio 0.5 (1.0-2.7) L Current Medications Medications (Trade) Dose Ordered Sig/Konrad Route PRN Reason Start Time Stop Time Status Last Admin Dose Admin Acetaminophen (Tylenol) 650 mg Q4H PRN GT Mild Pain/Temp > 100.5 02/20/19 18:00 03/16/19 17:59 03/10/19 11:32 Acetylcysteine (Mucomyst) 100 mg Q6HRT HHN 03/05/19 19:00 03/25/19 06:59 03/11/19 07:23 Albuterol/ Ipratropium (Albuterol/ Ipratropium) 3 ml Q6HRT HHN 03/10/19 19:00 03/15/19 18:59 03/11/19 07:23 Amlodipine Besylate (Norvasc) 5 mg DAILY GT 03/10/19 09:00 04/09/19 08:59 03/10/19 09:17 Chlorhexidine Gluconate (Marah-Hex 2%) 1 applic DAILY@2000 TOPIC 03/11/19 20:00 04/10/19 19:59 Dextrose (Dextrose 50%) 25 ml Q30M PRN IV Hypoglycemia 02/20/19 17:45 03/16/19 15:14 Dextrose (Dextrose 50%) 50 ml Q30M PRN IV Hypoglycemia 02/20/19 17:45 03/16/19 15:14 Dopamine HCl/ Dextrose 250 ml @ 0 mls/hr Q24H IV 03/10/19 22:00 04/09/19 21:59 03/11/19 09:14 Epoetin Chau (Epoetin Chau(ESRD on dialysis)) 8,000 unit -SAT SUBQ 03/11/19 21:00 04/10/19 20:59 Fluconazole/ Sodium Chloride 100 ml @ 100 mls/hr Q24H IV 02/27/19 12:00 03/12/19 11:59 03/10/19 11:32 Heparin Sodium (Porcine) (Heparin 5000 units/ml) 5,000 units EVERY 12 HOURS SUBQ 02/20/19 21:00 03/16/19 20:59 03/11/19 09:19 Heparin Sodium (Porcine) (Heparin Sod 1000 units/ml 10ml) 2,000 unit ONCE PRN IV FOR HD USE ONLY 03/10/19 09:30 03/11/19 23:59 Heparin Sodium (Porcine) (Heparin Sod 1000 units/ml 10ml) 2,000 unit ONCE PRN IV HD 03/12/19 06:00 03/12/19 23:59 Hydralazine HCl (Apresoline) 25 mg Q6HR PRN GT Sbp above 150 03/03/19 02:45 04/02/19 02:44 03/04/19 15:51 Insulin Aspart (NovoLOG) EVERY 6 HOURS SUBQ 02/20/19 18:00 03/16/19 16:29 03/11/19 01:03 Lansoprazole (Prevacid) 30 mg BID GT 03/01/19 09:00 03/31/19 08:59 03/11/19 09:14 Levothyroxine Sodium (Synthroid) 150 mcg DAILY@0630 GT 02/21/19 06:30 03/17/19 06:29 03/11/19 06:18 Metoclopramide HCl (Reglan) 5 mg Q6H PRN IVP Nausea & Vomiting 02/20/19 18:00 03/20/19 17:59 Norepinephrine Bitartrate 4 mg/ Dextrose 250 ml @ 0 mls/hr Q24H IV 03/10/19 22:00 04/09/19 21:59 03/11/19 09:06 Ondansetron HCl (Zofran) 4 mg Q6H PRN IVP Nausea & Vomiting 02/20/19 18:00 03/19/19 17:59 Piperacillin Sod/ Tazobactam Sod 2.25 gm/Dextrose 55 ml @ 110 mls/hr Q8HR IVPB 02/26/19 22:00 03/12/19 21:59 03/11/19 06:20 Sodium Chloride 1,000 ml @ 75 mls/hr [id number] IV 03/11/19 08:22 04/10/19 08:21 03/11/19 09:14 Sodium Chloride 1,000 ml @ 500 mls/hr Q2H PRN IVLG sbp<90 during hd 03/10/19 09:30 03/11/19 23:59 Sodium Chloride 1,000 ml @ 500 mls/hr Q2H PRN IVLG sbp<90 during hd 03/12/19 06:00 03/12/19 23:59 Sucralfate (Carafate) 1 gm Q6HR GT 02/25/19 12:00 03/27/19 11:59 03/11/19 06:19 Vancomycin HCl (Vanco rx to dose) 1 ea DAILY PRN MISC Per rx protocol 03/09/19 11:15 04/08/19 11:14 Kaden Aguilar MD Mar 11, 2019 09:48
--- NOTE | 2019-03-11 10:00 | NUR ---
NURSE NOTES: HR remains elevated MD aware. Maxed out on both drips - blood pressure sustaining at this time. turned and repositioned. No new orders. will continue to monitor patient.
--- NOTE | 2019-03-11 10:43 | GI Progress Note ---
Assessment/Plan Problems: (1) Anemia ICD Codes: D64.9 - Anemia, unspecified SNOMED: 936578786 (2) Respiratory failure ICD Codes: J96.90 - Respiratory failure, unspecified, unspecified whether with hypoxia or hypercapnia SNOMED: 234693489 Qualifiers: Qualified Codes: J96.01 - Acute respiratory failure with hypoxia; J96.02 - Acute respiratory failure with hypercapnia (3) End stage renal disease on dialysis ICD Codes: N18.6 - End stage renal disease; Z99.2 - Dependence on renal dialysis SNOMED: 354716542 Status: unchanged, deteriorating Status Narrative Discussed with Dr. Taylor. Assessment/Plan s/p EGD SUMMARY OF FINDINGS: Evidence of significant esophageal possibly necrosis in the distal esophagus most probably the source of bleeding, which we could not do anything endoscopically to control it. - Bx reviewed; gastritis, negative for H. Pylori. Esophageal Ulcer edge negative for malignancy. stable H&H, no recurrent bleed reported rectal tube s/p code x2 yesterday PLAN: hold GTFs strict aspiration precautions, elevate the head of the bed at all times. prevacid 30 mg BID Monitor hemoglobin and hematocrit every 8 hours and transfuse to keep hemoglobin above 8. Carafate 1 g every 6 hours. repeat endoscopy if patient has recurrent bleed poor prognosis The patient was seen and examined at bedside and all new and available data was reviewed in the patients chart. I agree with the above findings, impression and plan. (Patient seen earlier today. Signature stamp does not reflect patient encounter time.). - Hilton Taylor MD Subjective Subjective Limited Objective Last 24 Hour Vital Signs Date Time Temp Pulse Resp B/P (MAP) Pulse Ox O2 Delivery O2 Flow Rate FiO2 03/11/19 09:30 112 21 102/50 (67) 100 03/11/19 09:14 102/39 03/11/19 09:06 112/62 03/11/19 09:05 50 03/11/19 09:04 113 22 50 03/11/19 09:00 112 21 102/39 (60) 100 03/11/19 08:30 111 21 109/46 (67) 100 03/11/19 08:29 100 115/70 03/11/19 08:00 98.4 113 18 97/45 (62) 100 03/11/19 08:00 Mechanical Ventilator 03/11/19 08:00 70 03/11/19 08:00 108 03/11/19 07:50 70 03/11/19 07:50 70 03/11/19 07:45 118 22 100 Mechanical Ventilator 100 03/11/19 07:24 115 23 100 03/11/19 07:24 115 3 100 Mechanical Ventilator 35 03/11/19 07:00 118 18 127/59 (81) 100 03/11/19 06:30 124 18 124/64 (84) 03/11/19 06:19 116/59 03/11/19 06:00 127 18 129/60 (83) 03/11/19 06:00 116/59 03/11/19 06:00 116/59 03/11/19 05:30 111 22 93/29 (50) 03/11/19 05:00 101/64 03/11/19 05:00 101/64 03/11/19 05:00 114 24 101/64 (76) 03/11/19 04:45 101 20 100 03/11/19 04:30 132 19 171/94 (119) 03/11/19 04:00 Mechanical Ventilator 03/11/19 04:00 97.7 101 14 72/33 (46) 03/11/19 04:00 40 03/11/19 04:00 105 03/11/19 04:00 58/16 03/11/19 04:00 58/16 03/11/19 03:35 108/52 03/11/19 03:30 106 13 108/52 (70) 03/11/19 03:00 105/54 03/11/19 03:00 105/54 03/11/19 03:00 101 15 117/69 (85) 03/11/19 02:53 102 20 35 03/11/19 02:30 98 12 89/44 (59) 03/11/19 02:00 94/45 03/11/19 02:00 94/45 03/11/19 02:00 99 15 104/50 (68) 03/11/19 01:53 67/22 03/11/19 01:30 103 20 87/47 (60) 03/11/19 01:28 103 20 100 Mechanical Ventilator 35 03/11/19 01:13 101 20 100 Mechanical Ventilator 35 03/11/19 01:12 101 20 35 03/11/19 01:00 87/47 03/11/19 01:00 87/47 03/11/19 01:00 101 20 120/64 (82) 03/11/19 00:30 103 20 103/61 (75) 03/11/19 00:00 40 03/11/19 00:00 120 03/11/19 00:00 103/61 03/11/19 00:00 103/61 03/11/19 00:00 Mechanical Ventilator 03/11/19 00:00 97.9 108 20 118/51 (73) 03/10/19 23:45 115 19 116/60 (78) 03/10/19 23:30 103 19 103/47 (65) 03/10/19 23:30 116/60 03/10/19 23:15 118 20 128/63 (84) 03/10/19 23:00 122 20 115/53 (73) 03/10/19 23:00 128/63 03/10/19 23:00 128/63 03/10/19 22:49 35 03/10/19 22:46 123 28 50 03/10/19 22:45 124 24 141/68 (92) 03/10/19 22:30 120 28 118/56 (76) 03/10/19 22:19 70/27 03/10/19 22:15 128 28 122/63 (82) 100 03/10/19 22:00 91 26 80/51 (61) 03/10/19 22:00 85/46 03/10/19 21:59 50 03/10/19 21:45 130 16 110/57 (74) 03/10/19 21:30 135 17 119/59 (79) 03/10/19 21:27 64/76 03/10/19 21:15 106 14 98/48 (65) 100 03/10/19 21:00 72 14 66/27 (40) 03/10/19 20:50 84 14 100 03/10/19 20:00 40 03/10/19 20:00 98.0 80 19 94/45 (61) 87 03/10/19 20:00 Mechanical Ventilator 03/10/19 20:00 111 03/10/19 19:35 112 25 100 Mechanical Ventilator 40 03/10/19 19:20 111 20 98 Mechanical Ventilator 40 03/10/19 19:13 111 23 40 03/10/19 19:00 112 19 117/56 (76) 100 03/10/19 18:00 114 19 120/65 (83) 100 03/10/19 17:09 112 22 40 03/10/19 17:00 110 19 133/63 (86) 100 03/10/19 16:00 110 03/10/19 16:00 Mechanical Ventilator 03/10/19 16:00 98.9 110 19 142/63 (89) 100 03/10/19 16:00 40 03/10/19 15:00 110 19 133/63 (86) 100 03/10/19 14:53 111 20 40 03/10/19 14:00 105 19 127/57 (80) 100 03/10/19 13:00 99 19 123/58 (79) 100 03/10/19 12:57 95 27 100 Mechanical Ventilator 40 03/10/19 12:52 94 23 40 03/10/19 12:51 93 20 100 Mechanical Ventilator 40 03/10/19 12:02 98.8 03/10/19 12:00 Mechanical Ventilator 03/10/19 12:00 98.8 92 20 110/50 (70) 100 03/10/19 12:00 94 03/10/19 12:00 40 03/10/19 11:00 94 20 120/55 (76) 100 03/10/19 10:42 99 20 40 Intake and Output 03/10/19 03/11/19 19:00 07:00 Intake Total 600 ml 1433.035 ml Output Total 500 ml 1200 ml Balance 100 ml 233.035 ml Intake Free Water 120 ml IV Total 1153.035 ml Tube Feeding 480 ml 280 ml Output Urine Total 0 ml 0 ml Stool Total 500 ml 1200 ml Laboratory Tests Test 03/10/19 21:11 03/10/19 22:30 03/11/19 04:55 03/11/19 07:30 Arterial Blood pH 7.069 (7.350-7.450) 7.475 (7.350-7.450) 7.441 (7.350-7.450) Arterial Blood Partial Pressure CO2 70.5 mmHg (35.0-45.0) *H 31.4 mmHg (35.0-45.0) L 28.6 mmHg (35.0-45.0) L Arterial Blood Partial Pressure O2 > 494.5 mmHg (75.0-100.0) H 249.6 mmHg (75.0-100.0) H 385.6 mmHg (75.0-100.0) H Arterial Blood HCO3 19.9 mmol/L (22.0-26.0) L 22.6 mmol/L (22.0-26.0) 19.0 mmol/L (22.0-26.0) L Arterial Blood Oxygen Saturation 99.5 % (95-100) 99.1 % (95-100) 99.6 % (95-100) Arterial Blood Base Excess -10.8 (-2-2) *L -0.3 (-2-2) -3.9 (-2-2) L Zachary Test Positive Positive Positive White Blood Count 26.3 K/UL (4.8-10.8) *H Red Blood Count 3.37 M/UL (4.20-5.40) L Hemoglobin 11.0 G/DL (12.0-16.0) L Hematocrit 34.1 % (37.0-47.0) L Mean Corpuscular Volume 101 FL (80-99) H Mean Corpuscular Hemoglobin 32.5 PG (27.0-31.0) H Mean Corpuscular Hemoglobin Concent 32.1 G/DL (32.0-36.0) Red Cell Distribution Width 17.3 % (11.6-14.8) H Platelet Count 503 K/UL (150-450) H Mean Platelet Volume 5.9 FL (6.5-10.1) L Neutrophils (%) (Auto) % (45.0-75.0) Lymphocytes (%) (Auto) % (20.0-45.0) Monocytes (%) (Auto) % (1.0-10.0) Eosinophils (%) (Auto) % (0.0-3.0) Basophils (%) (Auto) % (0.0-2.0) Differential Total Cells Counted 100 Neutrophils % (Manual) 72 % (45-75) Lymphocytes % (Manual) 14 % (20-45) L Monocytes % (Manual) 14 % (1-10) H Eosinophils % (Manual) 0 % (0-3) Basophils % (Manual) 0 % (0-2) Band Neutrophils 0 % (0-8) Platelet Estimate Adequate Platelet Morphology Normal Hypochromasia 1+ Anisocytosis 1+ Macrocytosis 1+ Sodium Level 140 MMOL/L (136-145) Potassium Level 4.0 MMOL/L (3.5-5.1) Chloride Level 96 MMOL/L (98-107) L Carbon Dioxide Level 17 MMOL/L (21-32) L Anion Gap 27 mmol/L (5-15) H Blood Urea Nitrogen 141 mg/dL (7-18) H Creatinine 4.8 MG/DL (0.55-1.30) H Estimat Glomerular Filtration Rate mL/min (>60) Glucose Level 377 MG/DL (74-106) #H Calcium Level 10.8 MG/DL (8.5-10.1) H Phosphorus Level 7.9 MG/DL (2.5-4.9) H Total Bilirubin 0.5 MG/DL (0.2-1.0) Aspartate Amino Transf (AST/SGOT) 206 U/L (15-37) H Alanine Aminotransferase (ALT/SGPT) 106 U/L (12-78) H Alkaline Phosphatase 101 U/L (46-116) Total Protein 8.2 G/DL (6.4-8.2) Albumin 2.7 G/DL (3.4-5.0) L Globulin 5.5 g/dL Albumin/Globulin Ratio 0.5 (1.0-2.7) L Microbiology Date/Time Source Procedure Growth Status 03/10/19 13:00 Stool Clostridium difficile Toxin Assay - Final Complete Height (Feet): 5 Height (Inches): 3.00 Weight (Pounds): 100 General Appearance: no apparent distress, lethargic Cardiovascular: normal rate Respiratory/Chest: other - intubated Abdominal Exam: soft Janene Ellis [employer] Mar 11, 2019 10:43
[2019-03-11] MEDS ORDERED: Meropenem 500 MG in NS 55 ML IVPB SCH (12:00)
--- NOTE | 2019-03-11 12:00 | NUR ---
NURSE NOTES: Patient turned and repositioned. Dr. Quintero at bedside. order obtained to dialyze tomorrow. will continue plan of care.
[2019-03-11] MEDS ORDERED: Norepinephrine Bitartrate 8 MG in D5W 500ml 492 ML IV SCH (14:00)
--- NOTE | 2019-03-11 14:00 | NUR ---
NURSE NOTES: Remains unstable. HR labile. No changes in condition. MD aware. No new orders. will continue plan of care.
--- NOTE | 2019-03-11 14:24 | Diagnostic Imaging Report ---
Indication: Post CODE BLUE dyspnea Technique: One view of the chest Comparison: 03/08/2019 Findings: Stable satisfactory position of endotracheal tube. There are overlying defibrillator paddles noted. The lungs and pleural spaces are clear. The heart size is normal in Impression: Findings as noted. No definite acute pulmonary process
[2019-03-11] MEDS ORDERED: D5W 275ml ONE (14:33)
[2019-03-11] MEDS ORDERED: NS 275ml ONE (14:33)
--- NOTE | 2019-03-11 14:34 | NUR ---
RESPIRATORY NOTE: CODE BLUE: Pt's HR vannesa down again, Code SIA called for this pt. High quality CPR initiated right away per RT Frederic, pt off the vent and bagged via ambu bag 15L 100% per RT, meds given per nurses. MD Pauline facilitated the code. Pt didn't successfully resuscitated this time. Pt pronounced at [address] Carpenter.
--- NOTE | 2019-03-11 14:51 | NUR ---
NURSE NOTES: Patient coded at 14:24. Life sustaining measures unsuccessful. Time of pronounced by MD at bedside at 14:34.
--- NOTE | 2019-03-11 15:34 | Surgery Progress Note ---
Surgery Progress Note Subjective Additional Comments patient became acutely worse and coded. unable to revive. pronounced. I was in ICU at time of code. patient had been ill appearing and continued to deteriorate Objective Last 24 Hour Vital Signs Date Time Temp Pulse Resp B/P (MAP) Pulse Ox O2 Delivery O2 Flow Rate FiO2 03/11/19 14:00 110 20 85/45 (58) 100 03/11/19 13:30 100 Mechanical Ventilator 50 03/11/19 13:30 Mechanical Ventilator 50 03/11/19 13:30 97 20 89/37 (54) 100 03/11/19 13:29 116 20 50 03/11/19 13:21 88/34 03/11/19 13:00 97 20 88/37 (54) 100 03/11/19 12:30 111 20 96/39 (58) 100 03/11/19 12:00 Mechanical Ventilator 03/11/19 12:00 99.2 110 20 98/36 (56) 100 03/11/19 12:00 122 03/11/19 11:30 112 20 90/39 (56) 100 03/11/19 11:22 108/53 03/11/19 11:00 112 20 101/43 (62) 100 03/11/19 10:41 111 21 50 03/11/19 10:30 111 21 94/35 (54) 100 03/11/19 10:00 112 21 96/39 (58) 100 03/11/19 09:30 112 21 102/50 (67) 100 03/11/19 09:14 102/39 03/11/19 09:06 112/62 03/11/19 09:05 50 03/11/19 09:04 113 22 50 03/11/19 09:00 112 21 102/39 (60) 100 03/11/19 08:30 111 21 109/46 (67) 100 03/11/19 08:29 100 115/70 03/11/19 08:00 98.4 113 18 97/45 (62) 100 03/11/19 08:00 Mechanical Ventilator 03/11/19 08:00 70 03/11/19 08:00 108 03/11/19 07:50 70 03/11/19 07:50 70 03/11/19 07:45 118 22 100 Mechanical Ventilator 100 03/11/19 07:24 115 23 100 03/11/19 07:24 115 3 100 Mechanical Ventilator 35 03/11/19 07:00 118 18 127/59 (81) 100 03/11/19 06:30 124 18 124/64 (84) 03/11/19 06:19 116/59 03/11/19 06:00 127 18 129/60 (83) 03/11/19 06:00 116/59 03/11/19 06:00 116/59 03/11/19 05:30 111 22 93/29 (50) 03/11/19 05:00 101/64 03/11/19 05:00 101/64 03/11/19 05:00 114 24 101/64 (76) 03/11/19 04:45 101 20 100 03/11/19 04:30 132 19 171/94 (119) 03/11/19 04:00 Mechanical Ventilator 03/11/19 04:00 97.7 101 14 72/33 (46) 03/11/19 04:00 40 03/11/19 04:00 105 03/11/19 04:00 58/16 03/11/19 04:00 58/16 03/11/19 03:35 108/52 03/11/19 03:30 106 13 108/52 (70) 03/11/19 03:00 105/54 03/11/19 03:00 105/54 03/11/19 03:00 101 15 117/69 (85) 03/11/19 02:53 102 20 35 03/11/19 02:30 98 12 89/44 (59) 03/11/19 02:00 94/45 03/11/19 02:00 94/45 03/11/19 02:00 99 15 104/50 (68) 03/11/19 01:53 67/22 03/11/19 01:30 103 20 87/47 (60) 03/11/19 01:28 103 20 100 Mechanical Ventilator 35 03/11/19 01:13 101 20 100 Mechanical Ventilator 35 03/11/19 01:12 101 20 35 03/11/19 01:00 87/47 03/11/19 01:00 87/47 03/11/19 01:00 101 20 120/64 (82) 03/11/19 00:30 103 20 103/61 (75) 03/11/19 00:00 40 03/11/19 00:00 120 03/11/19 00:00 103/61 03/11/19 00:00 103/61 03/11/19 00:00 Mechanical Ventilator 03/11/19 00:00 97.9 108 20 118/51 (73) 03/10/19 23:45 115 19 116/60 (78) 03/10/19 23:30 103 19 103/47 (65) 03/10/19 23:30 116/60 03/10/19 23:15 118 20 128/63 (84) 03/10/19 23:00 122 20 115/53 (73) 03/10/19 23:00 128/63 03/10/19 23:00 128/63 03/10/19 22:49 35 03/10/19 22:46 123 28 50 03/10/19 22:45 124 24 141/68 (92) 03/10/19 22:30 120 28 118/56 (76) 03/10/19 22:19 70/27 03/10/19 22:15 128 28 122/63 (82) 100 03/10/19 22:00 91 26 80/51 (61) 03/10/19 22:00 85/46 03/10/19 21:59 50 03/10/19 21:45 130 16 110/57 (74) 03/10/19 21:30 135 17 119/59 (79) 03/10/19 21:27 64/76 03/10/19 21:15 106 14 98/48 (65) 100 03/10/19 21:00 72 14 66/27 (40) 03/10/19 20:50 84 14 100 03/10/19 20:00 40 03/10/19 20:00 98.0 80 19 94/45 (61) 87 03/10/19 20:00 Mechanical Ventilator 03/10/19 20:00 111 03/10/19 19:35 112 25 100 Mechanical Ventilator 40 03/10/19 19:20 111 20 98 Mechanical Ventilator 40 03/10/19 19:13 111 23 40 03/10/19 19:00 112 19 117/56 (76) 100 03/10/19 18:00 114 19 120/65 (83) 100 03/10/19 17:09 112 22 40 03/10/19 17:00 110 19 133/63 (86) 100 03/10/19 16:00 110 03/10/19 16:00 Mechanical Ventilator 03/10/19 16:00 98.9 110 19 142/63 (89) 100 03/10/19 16:00 40 I&O Intake and Output 03/10/19 03/11/19 18:59 06:59 Intake Total 600 ml 1473.035 ml Output Total 500 ml 1200 ml Balance 100 ml 273.035 ml Intake Free Water 120 ml IV Total 1153.035 ml Tube Feeding 480 ml 320 ml Output Urine Total 0 ml 0 ml Stool Total 500 ml 1200 ml Dressing: other Wound: other Drains: other Cardiovascular: other Respiratory: other Abdomen: other Extremities: other Laboratory Tests Test 03/10/19 21:11 03/10/19 22:30 03/11/19 04:55 03/11/19 07:30 Arterial Blood pH 7.069 (7.350-7.450) 7.475 (7.350-7.450) 7.441 (7.350-7.450) Arterial Blood Partial Pressure CO2 70.5 mmHg (35.0-45.0) *H 31.4 mmHg (35.0-45.0) L 28.6 mmHg (35.0-45.0) L Arterial Blood Partial Pressure O2 > 494.5 mmHg (75.0-100.0) H 249.6 mmHg (75.0-100.0) H 385.6 mmHg (75.0-100.0) H Arterial Blood HCO3 19.9 mmol/L (22.0-26.0) L 22.6 mmol/L (22.0-26.0) 19.0 mmol/L (22.0-26.0) L Arterial Blood Oxygen Saturation 99.5 % (95-100) 99.1 % (95-100) 99.6 % (95-100) Arterial Blood Base Excess -10.8 (-2-2) *L -0.3 (-2-2) -3.9 (-2-2) L Zachary Test Positive Positive Positive White Blood Count 26.3 K/UL (4.8-10.8) *H Red Blood Count 3.37 M/UL (4.20-5.40) L Hemoglobin 11.0 G/DL (12.0-16.0) L Hematocrit 34.1 % (37.0-47.0) L Mean Corpuscular Volume 101 FL (80-99) H Mean Corpuscular Hemoglobin 32.5 PG (27.0-31.0) H Mean Corpuscular Hemoglobin Concent 32.1 G/DL (32.0-36.0) Red Cell Distribution Width 17.3 % (11.6-14.8) H Platelet Count 503 K/UL (150-450) H Mean Platelet Volume 5.9 FL (6.5-10.1) L Neutrophils (%) (Auto) % (45.0-75.0) Lymphocytes (%) (Auto) % (20.0-45.0) Monocytes (%) (Auto) % (1.0-10.0) Eosinophils (%) (Auto) % (0.0-3.0) Basophils (%) (Auto) % (0.0-2.0) Differential Total Cells Counted 100 Neutrophils % (Manual) 72 % (45-75) Lymphocytes % (Manual) 14 % (20-45) L Monocytes % (Manual) 14 % (1-10) H Eosinophils % (Manual) 0 % (0-3) Basophils % (Manual) 0 % (0-2) Band Neutrophils 0 % (0-8) Platelet Estimate Adequate Platelet Morphology Normal Hypochromasia 1+ Anisocytosis 1+ Macrocytosis 1+ Sodium Level 140 MMOL/L (136-145) Potassium Level 4.0 MMOL/L (3.5-5.1) Chloride Level 96 MMOL/L (98-107) L Carbon Dioxide Level 17 MMOL/L (21-32) L Anion Gap 27 mmol/L (5-15) H Blood Urea Nitrogen 141 mg/dL (7-18) H Creatinine 4.8 MG/DL (0.55-1.30) H Estimat Glomerular Filtration Rate mL/min (>60) Glucose Level 377 MG/DL (74-106) #H Calcium Level 10.8 MG/DL (8.5-10.1) H Phosphorus Level 7.9 MG/DL (2.5-4.9) H Total Bilirubin 0.5 MG/DL (0.2-1.0) Aspartate Amino Transf (AST/SGOT) 206 U/L (15-37) H Alanine Aminotransferase (ALT/SGPT) 106 U/L (12-78) H Alkaline Phosphatase 101 U/L (46-116) Total Protein 8.2 G/DL (6.4-8.2) Albumin 2.7 G/DL (3.4-5.0) L Globulin 5.5 g/dL Albumin/Globulin Ratio 0.5 (1.0-2.7) L Plan Problems: (1) Decubitus skin ulcer Assessment & Plan: This is a very frail critically ill 73 year old female who presented on admission with non-blanching erythema sacrum, right and left buttocks. Patient is currently in the Intensive Care Unit with maximal care. She has an APM /JEREMY mattress and is often re-positioned on side with pillows as well as both heels off-loaded with pillows. Despite preventive interventions, the sacrum ,right and left buttocks are noted to be more erythematous with increase in size of affected area on buttocks(L) 9cm x (W)14cm. Multiple scattered partial thickness wounds that are viable with surrounding non -blanchable erythema that is without induration or elevation in skin temp. No odor or exudate noted. Additionally an area of non-blanchable erythema without fluctuance or induration or elevation in skin temp noted to R trochanter(L)6cm x (W)3cm. An area of non-blanchable erythema without induration or fluctuance noted to R ischium (L)6cm x (W)5cm. R and L heels are boggy but blanchable. Stable dry black skin lesion noted to L nostril. Tx.Plan: Apply Triad Paste to buttocks. Cover sacrum with Optifoam drsg. Change every 3 days and prn. Apply Triad paste to perineal and perianal areas with each incontinence care. Apply Cavilon Skin Barrier to R ischium and R trochanter. Cover each site with Optifoam drsg. Change every 7 days and prn. Reposition at least every 2 hours ior as tolerated. Off-load heels with pillow. APM/JEREMY mattress overlay. 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 * Increased kcal/prot needs R/T renal dysfunction, ESRD, wound healing, underweight status as evidenced by pt on HD, admitted w/ non-blanchable erythemas w/ partial thickness pressure injuries, refer to WC eval, low BMI per guidelines, w/ severe generalized wasting. CURRENT TF:Nepro INCREASED to 50ml/hr x 22 hrs ENTERAL NUTRITION RECOMMENDATIONS: Nepro @ 40ml/hr x 22 hrs + Prosource 1 pkt daily to provide 880ml, 1584kcal, 71g + 11g prot, 640ml free water * Rec Nepro @ 40ml/hr x 22 hrs : meets 100% est needs * Add Prosource 1pkt daily to better meet protein needs * Hold 1 hr before and after Synthroid med * HOB over 30 degrees/ water flush per MD ADDITIONAL RECOMMENDATIONS: * Per SNF record: HT=66", JJ=204ako (02/09/19) -> RECALIBRATE BEDSCALE: fluctuating daily wts-> 102 92 127 105 * Obtain dry wt post HD * Wound healing: continue Zeke 1pkt BID * Probiotics for diarrhea * Rec long acting insulin for improved BG control (18) Stage 4 decubitus ulcer Additional Comments thank you for allowing me to participate in care. unfortunately patient passed. Justice Rajan Mar 11, 2019 15:34
--- NOTE | 2019-03-11 15:35 | NUR ---
Documented for the wrong patient.
--- NOTE | 2019-03-11 15:36 | NUR ---
Accidentally documented restraints for the wrong patient.
--- NOTE | 2019-03-11 15:41 | NUR ---
ACCIDENTALLY DOCUMENTED RESTRAINTS ON WRONG PATIENT. Addendum: 03/11/19 at 1541 by JOE DYKES RN Amended: Links added.
--- NOTE | 2019-03-11 15:42 | NUR ---
NURSE NOTES: accidentally charted on wrong patient for restraints. Addendum: 03/11/19 at 1543 by JOE DYKES RN Amended: Links added.
--- NOTE | 2019-03-11 15:42 | NUR ---
NURSE NOTES: accidentally charted on wrong patient for restraints. Addendum: 03/11/19 at 1542 by OJE DYKES RN Amended: Links added.
--- NOTE | 2019-03-11 15:44 | NUR ---
NURSE NOTES: accidentally charted on wrong patient for restraints. Addendum: 03/11/19 at 1544 by JOE DYKES RN Amended: Links added.
--- NOTE | 2019-03-11 16:03 | Emergency Room Report ---
Physical Exam Call for CODE BLUE in ICU. This is the third CODE BLUE on this patient since last night. Apparently she runs tachycardic and then becomes rapidly bradycardic and then asystolic. She is on maximal pressors at this time including Levophed and dopamine. Already intubated. Recent blood gas was a pH of 7.4. She is oxygenating 100%. Her potassium this morning was 4.0. The patient became asystolic again. Last 24 Hour Vital Signs Date Time Temp Pulse Resp B/P (MAP) Pulse Ox O2 Delivery O2 Flow Rate FiO2 03/11/19 14:00 110 20 85/45 (58) 100 03/11/19 13:30 100 Mechanical Ventilator 50 03/11/19 13:30 Mechanical Ventilator 50 03/11/19 13:30 97 20 89/37 (54) 100 03/11/19 13:29 116 20 50 03/11/19 13:21 88/34 03/11/19 13:00 97 20 88/37 (54) 100 03/11/19 12:30 111 20 96/39 (58) 100 03/11/19 12:00 Mechanical Ventilator 03/11/19 12:00 99.2 110 20 98/36 (56) 100 03/11/19 12:00 122 03/11/19 11:30 112 20 90/39 (56) 100 03/11/19 11:22 108/53 03/11/19 11:00 112 20 101/43 (62) 100 03/11/19 10:41 111 21 50 03/11/19 10:30 111 21 94/35 (54) 100 03/11/19 10:00 112 21 96/39 (58) 100 03/11/19 09:30 112 21 102/50 (67) 100 03/11/19 09:14 102/39 03/11/19 09:06 112/62 03/11/19 09:05 50 03/11/19 09:04 113 22 50 03/11/19 09:00 112 21 102/39 (60) 100 03/11/19 08:30 111 21 109/46 (67) 100 03/11/19 08:29 100 115/70 03/11/19 08:00 98.4 113 18 97/45 (62) 100 03/11/19 08:00 Mechanical Ventilator 03/11/19 08:00 70 03/11/19 08:00 108 03/11/19 07:50 70 03/11/19 07:50 70 03/11/19 07:45 118 22 100 Mechanical Ventilator 100 03/11/19 07:24 115 23 100 03/11/19 07:24 115 3 100 Mechanical Ventilator 35 03/11/19 07:00 118 18 127/59 (81) 100 03/11/19 06:30 124 18 124/64 (84) 03/11/19 06:19 116/59 03/11/19 06:00 127 18 129/60 (83) 03/11/19 06:00 116/59 03/11/19 06:00 116/59 03/11/19 05:30 111 22 93/29 (50) 03/11/19 05:00 101/64 03/11/19 05:00 101/64 03/11/19 05:00 114 24 101/64 (76) 03/11/19 04:45 101 20 100 03/11/19 04:30 132 19 171/94 (119) 03/11/19 04:00 Mechanical Ventilator 03/11/19 04:00 97.7 101 14 72/33 (46) 03/11/19 04:00 40 03/11/19 04:00 105 03/11/19 04:00 58/16 03/11/19 04:00 58/16 03/11/19 03:35 108/52 03/11/19 03:30 106 13 108/52 (70) 03/11/19 03:00 105/54 03/11/19 03:00 105/54 03/11/19 03:00 101 15 117/69 (85) 03/11/19 02:53 102 20 35 03/11/19 02:30 98 12 89/44 (59) 03/11/19 02:00 94/45 03/11/19 02:00 94/45 03/11/19 02:00 99 15 104/50 (68) 03/11/19 01:53 67/22 03/11/19 01:30 103 20 87/47 (60) 03/11/19 01:28 103 20 100 Mechanical Ventilator 35 03/11/19 01:13 101 20 100 Mechanical Ventilator 35 03/11/19 01:12 101 20 35 03/11/19 01:00 87/47 03/11/19 01:00 87/47 03/11/19 01:00 101 20 120/64 (82) 03/11/19 00:30 103 20 103/61 (75) 03/11/19 00:00 40 03/11/19 00:00 120 03/11/19 00:00 103/61 03/11/19 00:00 103/61 03/11/19 00:00 Mechanical Ventilator 03/11/19 00:00 97.9 108 20 118/51 (73) 03/10/19 23:45 115 19 116/60 (78) 03/10/19 23:30 103 19 103/47 (65) 03/10/19 23:30 116/60 03/10/19 23:15 118 20 128/63 (84) 03/10/19 23:00 122 20 115/53 (73) 03/10/19 23:00 128/63 03/10/19 23:00 128/63 03/10/19 22:49 35 03/10/19 22:46 123 28 50 03/10/19 22:45 124 24 141/68 (92) 03/10/19 22:30 120 28 118/56 (76) 03/10/19 22:19 70/27 03/10/19 22:15 128 28 122/63 (82) 100 03/10/19 22:00 91 26 80/51 (61) 03/10/19 22:00 85/46 03/10/19 21:59 50 03/10/19 21:45 130 16 110/57 (74) 03/10/19 21:30 135 17 119/59 (79) 03/10/19 21:27 64/76 03/10/19 21:15 106 14 98/48 (65) 100 03/10/19 21:00 72 14 66/27 (40) 03/10/19 20:50 84 14 100 03/10/19 20:00 40 03/10/19 20:00 98.0 80 19 94/45 (61) 87 03/10/19 20:00 Mechanical Ventilator 03/10/19 20:00 111 03/10/19 19:35 112 25 100 Mechanical Ventilator 40 03/10/19 19:20 111 20 98 Mechanical Ventilator 40 03/10/19 19:13 111 23 40 03/10/19 19:00 112 19 117/56 (76) 100 03/10/19 18:00 114 19 120/65 (83) 100 03/10/19 17:09 112 22 40 03/10/19 17:00 110 19 133/63 (86) 100 Sp02 EP Interpretation: reviewed, normal General Appearance: other - unresponsive Eyes: bilateral eye other - non-reactive ENT: other - ET Neck: other - flaccid Respiratory: normal breath sounds Cardiovascular #1: other - pulses with CPR only Cardiovascular #2: 2+ femoral (R) Gastrointestinal: other - Gastrostomy tube, decreased bowel sounds Genitourinary: other - Mckenzie Neurologic: other - unresponsive and flaccid Psychiatric: other - Unresponsive Skin: mottled CPR/Code Blue CPR/Code Blue Narrative Blue called at 14:24. CPR supervised by me. EPI X 2 Asystole. This patient demonstrates cardiopulmonary unresponsiveness and further attempts at resuscitation appeared to be futile.. Code stopped and patient pronounced at 14:34. Medical Decision Making Diagnostic Impression: Primary Impression: Cardiopulmonary arrest ER Course Third CODE BLUE was called in the ICU. See CODE BLUE report Patient remained asystolic and further attempts at resuscitation were futile. Patient pronounced. Laboratory Tests Test 03/10/19 04:50 03/10/19 21:11 03/10/19 22:30 03/11/19 04:55 White Blood Count 20.8 K/UL (4.8-10.8) H 26.3 K/UL (4.8-10.8) *H Red Blood Count 3.36 M/UL (4.20-5.40) L 3.37 M/UL (4.20-5.40) L Hemoglobin 10.8 G/DL (12.0-16.0) L 11.0 G/DL (12.0-16.0) L Hematocrit 33.4 % (37.0-47.0) L 34.1 % (37.0-47.0) L Mean Corpuscular Volume 100 FL (80-99) H 101 FL (80-99) H Mean Corpuscular Hemoglobin 32.2 PG (27.0-31.0) H 32.5 PG (27.0-31.0) H Mean Corpuscular Hemoglobin Concent 32.4 G/DL (32.0-36.0) 32.1 G/DL (32.0-36.0) Red Cell Distribution Width 17.1 % (11.6-14.8) H 17.3 % (11.6-14.8) H Platelet Count 454 K/UL (150-450) H 503 K/UL (150-450) H Mean Platelet Volume 5.9 FL (6.5-10.1) L 5.9 FL (6.5-10.1) L Neutrophils (%) (Auto) % (45.0-75.0) % (45.0-75.0) Lymphocytes (%) (Auto) % (20.0-45.0) % (20.0-45.0) Monocytes (%) (Auto) % (1.0-10.0) % (1.0-10.0) Eosinophils (%) (Auto) % (0.0-3.0) % (0.0-3.0) Basophils (%) (Auto) % (0.0-2.0) % (0.0-2.0) Differential Total Cells Counted 100 100 Neutrophils % (Manual) 87 % (45-75) H 72 % (45-75) Lymphocytes % (Manual) 7 % (20-45) L 14 % (20-45) L Monocytes % (Manual) 6 % (1-10) 14 % (1-10) H Eosinophils % (Manual) 0 % (0-3) 0 % (0-3) Basophils % (Manual) 0 % (0-2) 0 % (0-2) Band Neutrophils 0 % (0-8) 0 % (0-8) Platelet Estimate Adequate Adequate Platelet Morphology Normal Normal Hypochromasia 1+ 1+ Anisocytosis 1+ 1+ Sodium Level 138 MMOL/L (136-145) 140 MMOL/L (136-145) Potassium Level 3.3 MMOL/L (3.5-5.1) L 4.0 MMOL/L (3.5-5.1) Chloride Level 96 MMOL/L (98-107) L 96 MMOL/L (98-107) L Carbon Dioxide Level 26 MMOL/L (21-32) 17 MMOL/L (21-32) L Anion Gap 16 mmol/L (5-15) H 27 mmol/L (5-15) H Blood Urea Nitrogen 102 mg/dL (7-18) H 141 mg/dL (7-18) H Creatinine 3.8 MG/DL (0.55-1.30) H 4.8 MG/DL (0.55-1.30) H Estimate Glomerular Filtration Rate mL/min (>60) mL/min (>60) Glucose Level 266 MG/DL (74-106) #H 377 MG/DL (74-106) #H Calcium Level 10.2 MG/DL (8.5-10.1) H 10.8 MG/DL (8.5-10.1) H Random Vancomycin Level 27.0 ug/mL Arterial Blood pH 7.069 (7.350-7.450) 7.475 (7.350-7.450) Arterial Blood Partial Pressure CO2 70.5 mmHg (35.0-45.0) *H 31.4 mmHg (35.0-45.0) L Arterial Blood Partial Pressure O2 > 494.5 mmHg (75.0-100.0) H 249.6 mmHg (75.0-100.0) H Arterial Blood HCO3 19.9 mmol/L (22.0-26.0) L 22.6 mmol/L (22.0-26.0) Arterial Blood Oxygen Saturation 99.5 % (95-100) 99.1 % (95-100) Arterial Blood Base Excess -10.8 (-2-2) *L -0.3 (-2-2) Zachary Test Positive Positive Macrocytosis 1+ Phosphorus Level 7.9 MG/DL (2.5-4.9) H Total Bilirubin 0.5 MG/DL (0.2-1.0) Aspartate Amino Transferase (AST) 206 U/L (15-37) H Alanine Aminotransferase (ALT) 106 U/L (12-78) H Alkaline Phosphatase 101 U/L (46-116) Total Protein 8.2 G/DL (6.4-8.2) Albumin 2.7 G/DL (3.4-5.0) L Globulin 5.5 g/dL Albumin/Globulin Ratio 0.5 (1.0-2.7) L Test 03/11/19 07:30 Arterial Blood pH 7.441 (7.350-7.450) Arterial Blood Partial Pressure CO2 28.6 mmHg (35.0-45.0) L Arterial Blood Partial Pressure O2 385.6 mmHg (75.0-100.0) H Arterial Blood HCO3 19.0 mmol/L (22.0-26.0) L Arterial Blood Oxygen Saturation 99.6 % (95-100) Arterial Blood Base Excess -3.9 (-2-2) L Zachary Test Positive Microbiology Date/Time Source Procedure Growth Status 03/10/19 13:00 Stool Clostridium difficile Toxin Assay - Final Complete EKG Diagnostic Results Rate: other Rhythm Strip Diag. Results Rhythm: other - asystole Status: worsened Disposition: Condition: Scripts Lansoprazole* (LANSOPRAZOLE*) 30 Mg Capsule. 30 MG GT DAILY for 30 Days, CAP 9 Refills Prov: Raul Cannon MD 02/20/19 Referrals: Raul Cannon MD (PCP) Wilmer Carpenter MD Mar 11, 2019 16:03
--- NOTE | 2019-03-11 17:33 | Pulmonology Progress Note ---
Assessment/Plan Assessment/Plan 1. acute respiratory failure 2. End-stage renal failure, on dialysis. 3. COPD. 4. Schizophrenia. 5. Pulmonary edema, due to overload 6. Anemia of chronic kidney disease. 7. Sick sinus syndrome. 8. diabetes mellitus. 9. protein calorie malnutrition 10. pulmonary infiltrates PLAN monitor as is vent noted and settings reviewed weaning - difficult; may need trach with lack of success oxygen management noted HD with UF replace K keep negative as able nutrition as able monitor oxygen delivery monitor for bleeding monitor fluid status and imaging continue supportive care and ICU management reviewed all and monitored nutrition and monitor protein levels follow up for change and recommend medications/laboratory data/nursing notes/ICU care reviewed in detail note reviewed and edited care discussed with RN and RT ICU time spent 38 minutes Subjective ROS Limited/Unobtainable: Yes Allergies: Coded Allergies: No Known Allergies (Unverified , 05/11/18) Subjective care noted on oxygen and vent respiratory noted and still on vent obtunded ICU care reviewed and discussed d/w primary, difficulty with wean Objective Last 24 Hour Vital Signs Date Time Temp Pulse Resp B/P (MAP) Pulse Ox O2 Delivery O2 Flow Rate FiO2 03/11/19 14:00 110 20 85/45 (58) 100 03/11/19 13:30 100 Mechanical Ventilator 50 03/11/19 13:30 Mechanical Ventilator 50 03/11/19 13:30 97 20 89/37 (54) 100 03/11/19 13:29 116 20 50 03/11/19 13:21 88/34 03/11/19 13:00 97 20 88/37 (54) 100 03/11/19 12:30 111 20 96/39 (58) 100 03/11/19 12:00 Mechanical Ventilator 03/11/19 12:00 99.2 110 20 98/36 (56) 100 03/11/19 12:00 122 03/11/19 11:30 112 20 90/39 (56) 100 03/11/19 11:22 108/53 03/11/19 11:00 112 20 101/43 (62) 100 03/11/19 10:41 111 21 50 03/11/19 10:30 111 21 94/35 (54) 100 03/11/19 10:00 112 21 96/39 (58) 100 03/11/19 09:30 112 21 102/50 (67) 100 03/11/19 09:14 102/39 03/11/19 09:06 112/62 03/11/19 09:05 50 03/11/19 09:04 113 22 50 03/11/19 09:00 112 21 102/39 (60) 100 03/11/19 08:30 111 21 109/46 (67) 100 03/11/19 08:29 100 115/70 03/11/19 08:00 98.4 113 18 97/45 (62) 100 03/11/19 08:00 Mechanical Ventilator 03/11/19 08:00 70 03/11/19 08:00 108 03/11/19 07:50 70 03/11/19 07:50 70 03/11/19 07:45 118 22 100 Mechanical Ventilator 100 03/11/19 07:24 115 23 100 03/11/19 07:24 115 3 100 Mechanical Ventilator 35 03/11/19 07:00 118 18 127/59 (81) 100 03/11/19 06:30 124 18 124/64 (84) 03/11/19 06:19 116/59 03/11/19 06:00 127 18 129/60 (83) 03/11/19 06:00 116/59 03/11/19 06:00 116/59 03/11/19 05:30 111 22 93/29 (50) 03/11/19 05:00 101/64 03/11/19 05:00 101/64 03/11/19 05:00 114 24 101/64 (76) 03/11/19 04:45 101 20 100 03/11/19 04:30 132 19 171/94 (119) 03/11/19 04:00 Mechanical Ventilator 03/11/19 04:00 97.7 101 14 72/33 (46) 03/11/19 04:00 40 03/11/19 04:00 105 03/11/19 04:00 58/16 03/11/19 04:00 58/16 03/11/19 03:35 108/52 03/11/19 03:30 106 13 108/52 (70) 03/11/19 03:00 105/54 03/11/19 03:00 105/54 03/11/19 03:00 101 15 117/69 (85) 03/11/19 02:53 102 20 35 03/11/19 02:30 98 12 89/44 (59) 03/11/19 02:00 94/45 03/11/19 02:00 94/45 03/11/19 02:00 99 15 104/50 (68) 03/11/19 01:53 67/22 03/11/19 01:30 103 20 87/47 (60) 03/11/19 01:28 103 20 100 Mechanical Ventilator 35 03/11/19 01:13 101 20 100 Mechanical Ventilator 35 03/11/19 01:12 101 20 35 03/11/19 01:00 87/47 03/11/19 01:00 87/47 03/11/19 01:00 101 20 120/64 (82) 03/11/19 00:30 103 20 103/61 (75) 03/11/19 00:00 40 03/11/19 00:00 120 03/11/19 00:00 103/61 03/11/19 00:00 103/61 03/11/19 00:00 Mechanical Ventilator 03/11/19 00:00 97.9 108 20 118/51 (73) 03/10/19 23:45 115 19 116/60 (78) 03/10/19 23:30 103 19 103/47 (65) 03/10/19 23:30 116/60 03/10/19 23:15 118 20 128/63 (84) 03/10/19 23:00 122 20 115/53 (73) 03/10/19 23:00 128/63 03/10/19 23:00 128/63 03/10/19 22:49 35 03/10/19 22:46 123 28 50 03/10/19 22:45 124 24 141/68 (92) 03/10/19 22:30 120 28 118/56 (76) 03/10/19 22:19 70/27 03/10/19 22:15 128 28 122/63 (82) 100 03/10/19 22:00 91 26 80/51 (61) 03/10/19 22:00 85/46 03/10/19 21:59 50 03/10/19 21:45 130 16 110/57 (74) 03/10/19 21:30 135 17 119/59 (79) 03/10/19 21:27 64/76 03/10/19 21:15 106 14 98/48 (65) 100 03/10/19 21:00 72 14 66/27 (40) 03/10/19 20:50 84 14 100 03/10/19 20:00 40 03/10/19 20:00 98.0 80 19 94/45 (61) 87 03/10/19 20:00 Mechanical Ventilator 03/10/19 20:00 111 03/10/19 19:35 112 25 100 Mechanical Ventilator 40 03/10/19 19:20 111 20 98 Mechanical Ventilator 40 03/10/19 19:13 111 23 40 03/10/19 19:00 112 19 117/56 (76) 100 03/10/19 18:00 114 19 120/65 (83) 100 Intake and Output 03/10/19 03/11/19 18:59 06:59 Intake Total 600 ml 1473.035 ml Output Total 500 ml 1200 ml Balance 100 ml 273.035 ml Intake Free Water 120 ml IV Total 1153.035 ml Tube Feeding 480 ml 320 ml Output Urine Total 0 ml 0 ml Stool Total 500 ml 1200 ml Objective WDWN on vent ETT in place reduced breath sounds bilaterally without rhonchi or wheeze [id number] without MRG NABS nontender no HSM; no distention; feeding tube no CC mild edema noted nonfocal and sedated poorly responsive and obtunded reviewed and edited Microbiology Date/Time Source Procedure Growth Status 03/10/19 13:00 Stool Clostridium difficile Toxin Assay - Final Complete Laboratory Tests 03/10/19 21:11: Arterial Blood pH 7.069*L, Arterial Blood Partial Pressure CO2 70.5*H, Arterial Blood Partial Pressure O2 > 494.5H, Arterial Blood HCO3 19.9L, Arterial Blood Oxygen Saturation 99.5, Arterial Blood Base Excess -10.8*L, Zachary Test Positive 03/10/19 22:30: Arterial Blood pH 7.475H, Arterial Blood Partial Pressure CO2 31.4L, Arterial Blood Partial Pressure O2 249.6H, Arterial Blood HCO3 22.6, Arterial Blood Oxygen Saturation 99.1, Arterial Blood Base Excess -0.3, Zachary Test Positive 03/11/19 04:55: White Blood Count 26.3*H, Red Blood Count 3.37L, Hemoglobin 11.0L, Hematocrit 34.1L, Mean Corpuscular Volume 101H, Mean Corpuscular Hemoglobin 32.5H, Mean Corpuscular Hemoglobin Concent 32.1, Red Cell Distribution Width 17.3H, Platelet Count 503H, Mean Platelet Volume 5.9L, Neutrophils (%) (Auto) , Lymphocytes (%) (Auto) , Monocytes (%) (Auto) , Eosinophils (%) (Auto) , Basophils (%) (Auto) , Differential Total Cells Counted 100, Neutrophils % ( Manual) 72, Lymphocytes % (Manual) 14L, Monocytes % (Manual) 14H, Eosinophils % (Manual) 0, Basophils % (Manual) 0, Band Neutrophils 0, Platelet Estimate Adequate, Platelet Morphology Normal, Hypochromasia 1+, Anisocytosis 1+, Macrocytosis 1+, Sodium Level 140, Potassium Level 4.0, Chloride Level 96L, Carbon Dioxide Level 17L, Anion Gap 27H, Blood Urea Nitrogen 141H, Creatinine 4.8H, Estimat Glomerular Filtration Rate , Glucose Level 377#H, Calcium Level 10.8H, Phosphorus Level 7.9H, Total Bilirubin 0.5, Aspartate Amino Transf (AST/ SGOT) 206H, Alanine Aminotransferase (ALT/SGPT) 106H, Alkaline Phosphatase 101, Total Protein 8.2, Albumin 2.7L, Globulin 5.5, Albumin/Globulin Ratio 0.5L 03/11/19 07:30: Arterial Blood pH 7.441, Arterial Blood Partial Pressure CO2 28.6L, Arterial Blood Partial Pressure O2 385.6H, Arterial Blood HCO3 19.0L, Arterial Blood Oxygen Saturation 99.6, Arterial Blood Base Excess -3.9L, Zachary Test Positive Current Medications Medications (Trade) Dose Ordered Sig/Konrad Route PRN Reason Start Time Stop Time Status Last Admin Dose Admin Acetaminophen (Tylenol) 650 mg Q4H PRN GT Mild Pain/Temp > 100.5 02/20/19 18:00 03/16/19 17:59 03/10/19 11:32 Acetylcysteine (Mucomyst) 100 mg Q6HRT N 03/05/19 19:00 03/25/19 06:59 03/11/19 07:23 Albuterol/ Ipratropium (Albuterol/ Ipratropium) 3 ml Q6HRT N 03/10/19 19:00 03/15/19 18:59 03/11/19 07:23 Amlodipine Besylate (Norvasc) 5 mg DAILY GT 03/10/19 09:00 04/09/19 08:59 03/10/19 09:17 Chlorhexidine Gluconate (Marah-Hex 2%) 1 applic DAILY@2000 TOPIC 03/11/19 20:00 04/10/19 19:59 Dextrose (Dextrose 50%) 25 ml Q30M PRN IV Hypoglycemia 02/20/19 17:45 03/16/19 15:14 Dextrose (Dextrose 50%) 50 ml Q30M PRN IV Hypoglycemia 02/20/19 17:45 03/16/19 15:14 Dopamine HCl/ Dextrose 250 ml @ 0 mls/hr Q24H IV 03/10/19 22:00 04/09/19 21:59 03/11/19 09:14 Epoetin Chau (Epoetin Chau(ESRD on dialysis)) 6,000 unit SAT-SAT-SAT SUBQ 03/11/19 21:00 04/10/19 20:59 Fluconazole/ Sodium Chloride 100 ml @ 100 mls/hr Q24H IV 02/27/19 12:00 03/12/19 11:59 03/11/19 12:30 Heparin Sodium (Porcine) (Heparin 5000 units/ml) 5,000 units EVERY 12 HOURS SUBQ 02/20/19 21:00 03/16/19 20:59 03/11/19 09:19 Heparin Sodium (Porcine) (Heparin Sod 1000 units/ml 10ml) 2,000 unit ONCE PRN IV FOR HD USE ONLY 03/10/19 09:30 03/11/19 23:59 Heparin Sodium (Porcine) (Heparin Sod 1000 units/ml 10ml) 2,000 unit ONCE PRN IV HD 03/12/19 06:00 03/12/19 23:59 Hydralazine HCl (Apresoline) 25 mg Q6HR PRN GT Sbp above 150 03/03/19 02:45 04/02/19 02:44 03/04/19 15:51 Insulin Aspart (NovoLOG) EVERY 6 HOURS SUBQ 02/20/19 18:00 03/16/19 16:29 03/11/19 12:33 Lansoprazole (Prevacid) 30 mg BID GT 03/01/19 09:00 03/31/19 08:59 03/11/19 09:14 Levothyroxine Sodium (Synthroid) 150 mcg DAILY@0630 GT 02/21/19 06:30 03/17/19 06:29 03/11/19 06:18 Meropenem 500 mg/ Sodium Chloride 55 ml @ 110 mls/hr Q24H IVPB 03/11/19 12:00 03/16/19 11:59 03/11/19 12:30 Metoclopramide HCl (Reglan) 5 mg Q6H PRN IVP Nausea & Vomiting 02/20/19 18:00 03/20/19 17:59 Norepinephrine Bitartrate 8 mg/ Dextrose 500 ml @ 0 mls/hr Q24H IV 03/11/19 14:00 04/10/19 13:59 03/11/19 13:21 Ondansetron HCl (Zofran) 4 mg Q6H PRN IVP Nausea & Vomiting 02/20/19 18:00 03/19/19 17:59 Sodium Chloride 1,000 ml @ 75 mls/hr [id number] IV 03/11/19 08:22 04/10/19 08:21 03/11/19 09:14 Sodium Chloride 1,000 ml @ 500 mls/hr Q2H PRN IVLG sbp<90 during hd 03/10/19 09:30 03/11/19 23:59 Sodium Chloride 1,000 ml @ 500 mls/hr Q2H PRN IVLG sbp<90 during hd 03/12/19 06:00 03/12/19 23:59 Sucralfate (Carafate) 1 gm Q6HR GT 02/25/19 12:00 03/27/19 11:59 03/11/19 12:31 Vancomycin HCl (Vanco rx to dose) 1 ea DAILY PRN MISC Per rx protocol 03/09/19 11:15 04/08/19 11:14 Jac Ramirez MD Mar 11, 2019 17:33
[2019-03-11] MEDS ORDERED: Dyna-Hex 2% Top Sol 2oz TOPIC SCH (20:00)
[2019-03-11] MEDS ORDERED: Epoetin Alfa-EPBX(ESRD on dialysis)3000 units/ml vial SUBQ SCH (21:00)
[2019-03-11] MEDS ORDERED: Epoetin Alfa-EPBX(ESRD on dialysis)4000 units/ml vial SUBQ SCH (21:00)
--- NOTE | 2019-03-12 04:45 | Progress Note ---
DATE: 03/11/2019 CARDIOLOGY PROGRESS NOTE SUBJECTIVE: Condition remains largely unchanged with critical condition and guarded prognosis. The patient remains on ventilator support. She continues to require hemodialysis with ultrafiltration. The patient had a Code Blue three times since last night with tachycardia alternating with bradycardia and asystole. The patient has poor blood gas noted. She remains on pressor support. OBJECTIVE: VITAL SIGNS: Blood pressure 85/45, heart rate 110, and respirations 20. Monitored rhythm, sinus tachycardia. LUNGS: Diminished breath sounds. Scattered rales. CARDIAC: Regular rhythm. Rapid rate. Normal S1, S2. ABDOMEN: Soft. EXTREMITIES: A 1+ dependent edema. LABORATORY DATA: White count 26 and hemoglobin 11. ABG yesterday, pH 7.07, pCO2 74, and pO2 190. Today, pH 7.44, pCO2 28, and pO2 385. Potassium 4, BUN 141, and creatinine 4.8. IMPRESSION: 1. Status post cardiopulmonary arrest. 2. Sepsis. 3. Shock. 4. Respiratory failure. 5. Type 2 diabetes with uncontrolled glucose. 6. Moderate protein-calorie malnutrition. 7. Shock liver. 8. End-stage renal disease. 9. Metabolic acidosis. PLAN: 1. Ventilator support. 2. Antimicrobials. 3. Hemodialysis with limited ultrafiltration due to hypotension. 4. Pressor support with taper as able. Wilmer Hoyos M.D. DR: ESSIE JOB#: [id number] CC:
[2019-03-12] MEDS ORDERED: Heparin Sod 1000 units/ml 10ml IV PRN (06:00)
--- NOTE | 2019-03-12 14:20 | Discharge Summary ---
Discharge Summary Discharge Summary _ DATE OF ADMISSION: 02/14/2019 DATE OF DISCHARGE: 03/11/2019 BRIEF SUMMARY: Patient is an unfortunate 73-year-old female, who was on her way to dialysis and was noted to be in severe respiratory distress. She has medical history significant for end-stage renal failure, COPD, schizophrenia, hypothyroidism, anemia of chronic disease, sick sinus syndrome and type 2 diabetes mellitus. On evaluation at the ED, patient was obtunded. She was placed on BiPAP. Blood work showed WBC of 12.9. Hemoglobin 10, hematocrit 32 BUN was 78, creatinine 2.8. Troponin was elevated to 0.095. EKG showed normal sinus rhythm with left atrial enlargement and left anterior fascicular block. Chest x-ray showed right left lung infiltrate. She was given Nitropaste and aspirin suppository. He was started empirically on Zosyn. She was then admitted for pulmonary edema. She was admitted to stepdown unit. She was given stat hemodialysis. She was continued on BiPAP support. Care. She was placed on nebulizer treatment. She was given apparent for DVT prophylaxis. Patient aspirated overnight. GI was consulted. She was given Reglan IV. G- tube rate was adjusted. He was given proton pump inhibitors. She was eventually tapered off BiPAP and was tolerating nasal cannula. Patient was planned for discharged to [facility] however discharge was canceled due to lack of arrangements for transportation to outpatient dialysis. Repeat chest x-ray showed worsening CHF. On 02/22/2019, a rapid response was called. Patient was noted to have agonal breathing. Patient was orally intubated and was transferred to ICU. There was further drop in patient's hemoglobin and was found to have active bleeding from the G-tube site. She was started on Protonix drip. She was transfused 4 units packed RBC. On 02/25/2019, she underwent EGD. Procedure was complicated. Patient was bleeding from necrotic area in the distal esophagus. She was kept n.p.o. Continue Protonix drip. Carafate was added. With plan for reevaluation and repeat endoscopy if continued to bleed. She was placed on strict aspiration precautions. ID was consulted. Vancomycin was discontinued. She was given Zosyn and was started on fluconazole. Echocardiogram revealed normal ejection fraction, diastolic dysfunction. PA pressure of only 22 mmHg and only trace mitral and tricuspid regurgitation. She remained on ventilator support. She continued to require hemodialysis with ultrafiltration. She was given weaning trials. Hemoglobin and hematocrit were stable. There was no recurrent bleed. PPI was transitioned to twice daily. Patient was unable to tolerate weaning trials. She was taken off sedatives and had successive days of hemodialysis. Plan to avoid trach. Patient had nonblanching erythema on the sacrum, right and left buttock. She was given wound care. She was placed on APM/JEREMY overlay mattress. On 03/10/2019, a CODE BLUE was called. Patient appeared to be on V. fib/V. tach. Patient was cardioverted several times. She required central line placement and a triple-lumen catheter was inserted to the right femoral. Patient had return of spontaneous circulation. She again had cardiac arrest on 03/11/2019. Patient was maxed on pressors. Another CODE BLUE was called. Patient was asystole. Resuscitative efforts were futile. Code was stopped and patient was pronounced at 1434. FINAL DIAGNOSES: Cardiopulmonary arrest Sepsis Shock Acute respiratory failure due to intractable CHF and most probably due to aspiration Marasmus Pulmonary edema due to overload Acute anemia Necrotizing esophagitis Anemia and chronic disease Acute on chronic diastolic congestive heart failure Type 2 diabetes with uncontrolled glucose Moderate protein calorie malnutrition Shock liver End-stage renal disease on hemodialysis Metabolic acidosis Starting decubiti DISPOSITION: Patient . I have been assigned to complete a discharge summary on this account, I was not involved with the patient's management. Sarahi Altman NP Mar 12, 2019 14:20
== END 2019-03-11 14:34 | disposition expired | DRG 207 ==
LOC: EDBD 11:03 → EDBEDREQ 11:20 → EMR 11:43 → 2W 11:49 → 2E 02-20 17:33 → ICU 02-22 20:16
PROC: 5A1D70Z Performance of Urinary Filtration, Intermittent, Less than 6 Hours Per Day (ICD-10-PCS; principal; 2019-02-14)
PROC: 5A1955Z Respiratory Ventilation, Greater than 96 Consecutive Hours (ICD-10-PCS; 2019-02-22)
PROC: 0BH17EZ Insertion of Endotracheal Airway into Trachea, Via Natural or Artificial Opening (ICD-10-PCS; 2019-02-22)
PROC: 0DC38ZZ Extirpation of Matter from Lower Esophagus, Via Natural or Artificial Opening Endoscopic (ICD-10-PCS; 2019-02-25)
PROC: 06HM33Z Insertion of Infusion Device into Right Femoral Vein, Percutaneous Approach (ICD-10-PCS; 2019-03-10)
DX: J96.01 Acute respiratory failure with hypoxia (principal); N18.6 End stage renal disease; I50.33 Acute on chronic diastolic (congestive) heart failure; J18.1 Lobar pneumonia, unspecified organism; A41.9 Sepsis, unspecified organism; R65.21 Severe sepsis with septic shock; K72.00 Acute and subacute hepatic failure without coma; I13.2 Hypertensive heart and chronic kidney disease with heart failure and with stage 5 chronic kidney disease, or end stage renal disease; J90 Pleural effusion, not elsewhere classified; I47.2 Ventricular tachycardia; J96.02 Acute respiratory failure with hypercapnia; Z99.2 Dependence on renal dialysis; J44.9 Chronic obstructive pulmonary disease, unspecified; I49.5 Sick sinus syndrome; Z68.24 Body mass index [BMI] 24.0-24.9, adult; F20.9 Schizophrenia, unspecified; D63.1 Anemia in chronic kidney disease; E11.21 Type 2 diabetes mellitus with diabetic nephropathy; E11.22 Type 2 diabetes mellitus with diabetic chronic kidney disease; Z93.1 Gastrostomy status; R13.10 Dysphagia, unspecified; F09 Unspecified mental disorder due to known physiological condition; K20.8 Other esophagitis; K22.8 Other specified diseases of esophagus; I49.01 Ventricular fibrillation; L89.90 Pressure ulcer of unspecified site, unspecified stage
CPT/HCPCS: 36415; 36600; 71045; 80048; 80053; 80202; 82140; 82150; 82270; 82550; 82803; 82962; 83540; 83550; 83605; 83690; 83735; 83880; 84100; 84132; 84484; 85007; 85025; 85610; 85730; 86706; 86850; 86900; 86901; 86920; 87040; 87070; 87081; 87205; 87324; 92950; 93005; 93306; 93970; 94002; 94003; 94150; 94640; 94664; 94760; 96365; 99285; J0171; J1815; J2405; J7620; J8499